=== PATIENT | male | born 1950 | race Caucasian/White ===

== ENCOUNTER → 2016-07-04 | Outpatient (CLI) | payer MEDICARE, BC ==
--- NOTE | 2016-07-04 15:50 | US ---
EXAMINATION TYPE: US kidneys/renal and bladder DATE OF EXAM: 07/04/2016 10:54 AM COMPARISON: NONE CLINICAL HISTORY: N28.89 DISORDERS OF KIDNEY AND URETER. Transplant candidate EXAM MEASUREMENTS:*patient was not told to prep for bladder* Right Kidney: 9.8 x 4.6 x 6.3 cm Left Kidney: 10.4 x 3.8 x 6.0 cm Right Kidney: cortical thinning Left Kidney: cortical thinning Bladder: not distended There is no evidence for hydronephrosis at this point in time. No nephrolithiasis is seen. No shanta s are identified. The urinary bladder is anechoic. Bilateral ureteral jets are seen. No suspicious renal masses are evident. IMPRESSION: Kidneys appear to have some chronic renal changes.
== END | disposition home or self-care (01) ==
LOC: RADUSWWP 10:38
PROVIDERS: ATTEND Family Medicine
DX: N28.89 Other specified disorders of kidney and ureter (principal)
CPT/HCPCS: 76770

== ENCOUNTER → 2016-10-25 | Outpatient (CLI) | payer MEDICARE, BC ==
--- NOTE | 2016-10-25 09:42 | US ---
EXAMINATION TYPE: US abdomen complete DATE OF EXAM: 10/25/2016 COMPARISON: Previous study dated 01/13/2016. CLINICAL HISTORY: K80.20 GALLSTONES, MASS. Kidney stones EXAM MEASUREMENTS: Liver Length: 17.6 cm Gallbladder Wall: 0.2 cm CBD: 0.4 cm Spleen: 14.4 cm Right Kidney: 11.2 x 5.5 x 4.1 cm Left Kidney: 10.6 x 5.7 x 5.0 cm Pancreas: obscured by overlying midline bowel gas Liver: measures in upper limits of normal at 17.6cm, somewhat heterogeneous echotexture Gallbladder: wnl Evidence for sonographic Martel's sign: no CBD: visualized portions wnl Spleen: enlarged at 14.4cm Right Kidney: cortical thinning, no hydro or masses seen at this time Left Kidney: cortical thinning, no hydro or masses seen at this time Upper IVC: wnl Abd Aorta: obscured by overlying midline bowel gas The pancreas is obscured. The liver is upper limits of normal in size with somewhat coarsened echotexture. The gallbladder is normal without evidence of cholelithiasis. The gallbladder wall measures 1.9 mm. T he distal common hepatic duct measures 4.1 mm. There is some cortical thinning involving both kidneys. Visualized portions of aorta and IVC are normal. IMPRESSION: BILATERAL RENAL CORTICAL THINNING.
== END | disposition home or self-care (01) ==
LOC: RADUSWWP 08:46
PROVIDERS: ATTEND Surgery
DX: N28.89 Other specified disorders of kidney and ureter (principal)
CPT/HCPCS: 76700

== ENCOUNTER 2016-10-30 19:07 | Emergency (ER) | payer MEDICARE, BC ==
[2016-10-30 19:12] VITALS: BP 142/65; PULSE 65; RESP 18; TEMP 97.2
[2016-10-30] MEDS ORDERED: GELATIN SPONGE,ABSORB (SMALL) 1 EACH SPONGE TOPICAL STA (19:29)
--- NOTE | 2016-10-30 19:41 | ED ---
General Adult HPI - General Chief complaint: Extremity Problem,Nontraumatic Stated complaint: Bleeding from dialysis Time Seen by Provider: 10/30/16 19:16 Source: patient, RN notes reviewed, old records reviewed Mode of arrival: wheelchair Limitations: no limitations - History of Present Illness Initial comments: Is the mail presented to the emergency departmentFrom hisDialysis fistula site Over his left upper arm. Patient reports that he and his were out to dinner after he received dialysis. They report that they noted thatHe soaked his shirt and bandages. They are concerned that it is still bleeding.He is on blood thinners.Patient denies any lightheadedness, Chest pain, shortness of breath, Nausea, vomiting.Patient reports that this is happened once before. - Related Data Home Medications Medication Instructions Recorded Confirmed Aspirin 81 mg PO DAILY 06/12/14 03/23/16 Etanercept [Enbrel] 50 mg SQ Q7DAYS 06/12/14 03/23/16 Furosemide [Lasix] 60 mg PO BID 06/12/14 03/23/16 Gemfibrozil [Lopid] 600 mg PO AC-BID 06/12/14 03/23/16 Insulin Glargine [Lantus] 60 unit SQ HS 06/12/14 03/23/16 Insulin Lispro [humaLOG] See Protocol SQ DAILY 06/12/14 03/23/16 Metoprolol Tartrate [Lopressor] 50 mg PO BID 06/12/14 03/23/16 Multivitamin [Men's Multi-Vitamin] 1 tab PO DAILY 06/12/14 03/23/16 NIFEdipine [NIFEdipine ER] 60 mg PO DAILY 06/12/14 03/23/16 Omeprazole [PriLOSEC] 20 mg PO AC-BID 06/12/14 03/23/16 Calcium Acetate [Phoslo] 2,001 mg PO TID-W/MEALS 10/05/15 03/23/16 Prorenal 1 tab PO DAILY 12/15/15 03/23/16 Sodium Bicarbonate 325 mg PO DAILY 12/15/15 03/23/16 Vit C/E/Zn/Coppr/Lutein/Zeaxan 1 cap PO DAILY 12/15/15 03/23/16 [Preservision Areds 2 Softgel] Clopidogrel [Plavix] 75 mg PO DAILY 03/23/16 03/23/16 Previous Rx's Medication Instructions Recorded Darbepoetin Dinh [Aranesp] 60 mcg SQ Q7D syringe 03/27/16 Levofloxacin [Levaquin] 500 mg PO Q48H #4 tab 03/27/16 Sevelamer [Renvela] 800 mg PO TID-W/MEALS #90 tab 03/27/16 Allergies Allergy/AdvReac Type Severity Reaction Status Date / Time sulfamethoxazole Allergy Unknown Unknown Verified 10/30/16 19:12 [From Bactrim] trimethoprim [From Bactrim] Allergy Unknown Unknown Verified 10/30/16 19:12 Review of Systems ROS Statement: Those systems with pertinent positive or pertinent negative responses have been documented in the HPI. ROS Other: All systems not noted in ROS Statement are negative. 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 History of Any Multi-Drug Resistant Organisms: None Reported Past Surgical History: Hernia Repair, Orthopedic Surgery Additional Past Surgical History / Comment(s): Bilateral cataract surgery, insertion dialysis catheter left arm, PICC line insertion/removed, bilateral inguinal hernina repairs, colonoscopy/polypectomy, R shoulder rotator cuff repair. Past Anesthesia/Blood Transfusion Reactions: No Reported Reaction Additional Past Anesthesia/Blood Transfusion Reaction / Comment(s): Pt received blood in past without reaction. Past Psychological History: Anxiety, Depression Smoking Status: Former smoker Past Alcohol Use History: None Reported Past Drug Use History: None Reported - Past Family History Father Family Medical History: Cancer General Exam - General Exam Comments Initial Comments: Pleasant 66 year old male, no distress. Limitations: no limitations General appearance: alert, in no apparent distress Head exam: Present: atraumatic, normocephalic, normal inspection Eye exam: Present: normal appearance, PERRL, EOMI. Absent: scleral icterus, conjunctival injection, periorbital swelling ENT exam: Present: normal exam, mucous membranes moist Neck exam: Present: normal inspection. Absent: tenderness, meningismus, lymphadenopathy Respiratory exam: Present: normal lung sounds bilaterally. Absent: respiratory distress, wheezes, rales, rhonchi, stridor Cardiovascular Exam: Present: regular rate, normal rhythm, normal heart sounds. Absent: systolic murmur, diastolic murmur, rubs, gallop, clicks GI/Abdominal exam: Present: soft, normal bowel sounds. Absent: distended, tenderness, guarding, rebound, rigid Extremities exam: Present: normal inspection, full ROM, normal capillary refill , other (Patient has AV fistula from left upper arm from dialysis. Mulitple soaked bandages were removed. Patient has no bleeding from the site at this time. ). Absent: tenderness, pedal edema, joint swelling, calf tenderness Back exam: Present: normal inspection Neurological exam: Present: alert, oriented X3, CN II-XII intact Psychiatric exam: Present: normal affect, normal mood Skin exam: Present: warm, dry, intact, normal color. Absent: rash Course Vital Signs 10/30/16 19:10 Temperature 97.2 F L Pulse Rate 65 Respiratory 18 Rate Blood Pressure 142/65 O2 Sat by Pulse 98 Oximetry Medical Decision Making - Medical Decision Making This is a 66 year old male with CC of bleeding from Fistula site of left upper arm after dialysis. He is on blood thinner. He soaked through is shirt, sweat shirt, and blanket. Patient bandages removed and the fistula site has stoppped bleeding. It was left uncovered for 30 minutes and no bleeding from the site noted. Patietn was cleaned up, and then gelfoam, and pressure dressing reapplied over the area. Discussed to return if the bleeding reoccurs. Patient agrees with treatment plan and will comply. Disposition Clinical Impression: Hemorrhage of arteriovenous fistula Disposition: HOME SELF-CARE Condition: Stable Instructions: Postoperative Bleeding (ED) Additional Instructions: Patient advised to keep the Lg wrap on the arm for the next 12-24 hours. Return to the emergency department if any further bleeding. Follow-up with your primary care physician.. Referrals: Nell Rosen MD [Primary Care Provider] - 1-2 days Time of Disposition: 19:38
== END 2016-10-30 20:00 | disposition home or self-care (01) ==
LOC: EC 19:07
DX: T82.838A Hemorrhage due to vascular prosthetic devices, implants and grafts, initial encounter (principal); I48.91 Unspecified atrial fibrillation; I50.9 Heart failure, unspecified; K21.9 Gastro-esophageal reflux disease without esophagitis; I13.0 Hypertensive heart and chronic kidney disease with heart failure and stage 1 through stage 4 chronic kidney disease, or unspecified chronic kidney disease; E11.22 Type 2 diabetes mellitus with diabetic chronic kidney disease; H54.8 Legal blindness, as defined in USA; M19.90 Unspecified osteoarthritis, unspecified site; M06.9 Rheumatoid arthritis, unspecified; Z99.2 Dependence on renal dialysis; Z88.1 Allergy status to other antibiotic agents; Z88.2 Allergy status to sulfonamides; Z79.02 Long term (current) use of antithrombotics/antiplatelets; Z79.4 Long term (current) use of insulin; Z79.82 Long term (current) use of aspirin; Z79.899 Other long term (current) drug therapy; Z87.891 Personal history of nicotine dependence
CPT/HCPCS: 99284

== ENCOUNTER 2016-11-29 18:32 | Emergency (ER) | payer MEDICARE, BC ==
[2016-11-29 18:47] VITALS: RESP 18
--- NOTE | 2016-11-29 19:20 | ED ---
General Adult HPI - General Chief complaint: Skin/Abscess/Foreign Body Stated complaint: bleeding after dialysis today Time Seen by Provider: 11/29/16 18:53 Source: patient, RN notes reviewed, old records reviewed Mode of arrival: wheelchair Limitations: no limitations - History of Present Illness Initial comments: This is a 58-year-old male here for evaluation of bleeding from left upper extremity AV fistula. Patient asked specifically if this was at home with bandage, patient did bleed through bandage, he has no lightheadedness dizziness or weakness. He does have history of this issue before. Currently not on blood thinners - Related Data Home Medications Medication Instructions Recorded Confirmed Aspirin 81 mg PO DAILY 06/12/14 03/23/16 Etanercept [Enbrel] 50 mg SQ Q7DAYS 06/12/14 03/23/16 Furosemide [Lasix] 60 mg PO BID 06/12/14 03/23/16 Gemfibrozil [Lopid] 600 mg PO AC-BID 06/12/14 03/23/16 Insulin Glargine [Lantus] 60 unit SQ HS 06/12/14 03/23/16 Insulin Lispro [humaLOG] See Protocol SQ DAILY 06/12/14 03/23/16 Metoprolol Tartrate [Lopressor] 50 mg PO BID 06/12/14 03/23/16 Multivitamin [Men's Multi-Vitamin] 1 tab PO DAILY 06/12/14 03/23/16 NIFEdipine [NIFEdipine ER] 60 mg PO DAILY 06/12/14 03/23/16 Omeprazole [PriLOSEC] 20 mg PO AC-BID 06/12/14 03/23/16 Calcium Acetate [Phoslo] 2,001 mg PO TID-W/MEALS 10/05/15 03/23/16 Prorenal 1 tab PO DAILY 12/15/15 03/23/16 Sodium Bicarbonate 325 mg PO DAILY 12/15/15 03/23/16 Vit C/E/Zn/Coppr/Lutein/Zeaxan 1 cap PO DAILY 12/15/15 03/23/16 [Preservision Areds 2 Softgel] Clopidogrel [Plavix] 75 mg PO DAILY 03/23/16 03/23/16 Previous Rx's Medication Instructions Recorded Darbepoetin Dinh [Aranesp] 60 mcg SQ Q7D syringe 03/27/16 Levofloxacin [Levaquin] 500 mg PO Q48H #4 tab 03/27/16 Sevelamer [Renvela] 800 mg PO TID-W/MEALS #90 tab 03/27/16 Allergies Allergy/AdvReac Type Severity Reaction Status Date / Time sulfamethoxazole Allergy Unknown Unknown Verified 11/29/16 18:46 [From Bactrim] trimethoprim [From Bactrim] Allergy Unknown Unknown Verified 11/29/16 18:46 Review of Systems ROS Statement: Those systems with pertinent positive or pertinent negative responses have been documented in the HPI. ROS Other: All systems not noted in ROS Statement are negative. 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 History of Any Multi-Drug Resistant Organisms: None Reported Past Surgical History: Hernia Repair, Orthopedic Surgery Additional Past Surgical History / Comment(s): Bilateral cataract surgery, insertion dialysis catheter left arm, PICC line insertion/removed, bilateral inguinal hernina repairs, colonoscopy/polypectomy, R shoulder rotator cuff repair. Past Anesthesia/Blood Transfusion Reactions: No Reported Reaction Additional Past Anesthesia/Blood Transfusion Reaction / Comment(s): Pt received blood in past without reaction. Past Psychological History: Anxiety, Depression Smoking Status: Former smoker Past Alcohol Use History: None Reported Past Drug Use History: None Reported - Past Family History Father Family Medical History: Cancer General Exam - General Exam Comments Initial Comments: Mild bleeding from AV access site Limitations: no limitations General appearance: alert, in no apparent distress Head exam: Present: atraumatic, normocephalic, normal inspection Eye exam: Present: normal appearance, PERRL, EOMI. Absent: scleral icterus, conjunctival injection, periorbital swelling ENT exam: Present: normal exam, mucous membranes moist Neck exam: Present: normal inspection. Absent: tenderness, meningismus, lymphadenopathy Respiratory exam: Present: normal lung sounds bilaterally. Absent: respiratory distress, wheezes, rales, rhonchi, stridor Cardiovascular Exam: Present: regular rate, normal rhythm, normal heart sounds. Absent: systolic murmur, diastolic murmur, rubs, gallop, clicks GI/Abdominal exam: Present: soft, normal bowel sounds. Absent: distended, tenderness, guarding, rebound, rigid Extremities exam: Present: normal inspection, full ROM, normal capillary refill. Absent: tenderness, pedal edema, joint swelling, calf tenderness Back exam: Present: normal inspection Neurological exam: Present: alert, oriented X3, CN II-XII intact Psychiatric exam: Present: normal affect, normal mood Skin exam: Present: warm, dry, intact, normal color. Absent: rash Course Vital Signs 11/29/16 11/29/16 18:43 19:10 Temperature 96.8 F L Pulse Rate 63 63 Respiratory 18 18 Rate Blood Pressure 147/65 124/59 O2 Sat by Pulse 98 97 Oximetry - Reevaluation(s) Reevaluation #1: 11/29/16 19:27 Bleeding remained stopped Medical Decision Making - Medical Decision Making 6 emailed ER for evaluation of bleeding bleeding from AV fistula, bleeding has stopped upon treatment here in the emergency room, patient will be discharged home Disposition Clinical Impression: Hemorrhage of arteriovenous fistula Disposition: HOME SELF-CARE Condition: Good Instructions: Postoperative Bleeding (ED) Referrals: Nell Rosen MD [Primary Care Provider] - 1-2 days
[2016-11-29 19:57] VITALS: BP 141/64; PULSE 61; TEMP 97.7
== END 2016-11-29 19:56 | disposition home or self-care (01) ==
LOC: EC 18:32
DX: T82.838A Hemorrhage due to vascular prosthetic devices, implants and grafts, initial encounter (principal); I48.91 Unspecified atrial fibrillation; K21.9 Gastro-esophageal reflux disease without esophagitis; F41.9 Anxiety disorder, unspecified; F32.9 Major depressive disorder, single episode, unspecified; I13.0 Hypertensive heart and chronic kidney disease with heart failure and stage 1 through stage 4 chronic kidney disease, or unspecified chronic kidney disease; I50.9 Heart failure, unspecified; N18.6 End stage renal disease; E11.22 Type 2 diabetes mellitus with diabetic chronic kidney disease; E11.319 Type 2 diabetes mellitus with unspecified diabetic retinopathy without macular edema; M06.9 Rheumatoid arthritis, unspecified; M19.90 Unspecified osteoarthritis, unspecified site; D64.9 Anemia, unspecified; E11.40 Type 2 diabetes mellitus with diabetic neuropathy, unspecified; E11.621 Type 2 diabetes mellitus with foot ulcer; L97.529 Non-pressure chronic ulcer of other part of left foot with unspecified severity; Z99.2 Dependence on renal dialysis; Z88.1 Allergy status to other antibiotic agents; Z79.02 Long term (current) use of antithrombotics/antiplatelets; Z79.4 Long term (current) use of insulin; Z79.82 Long term (current) use of aspirin; Z79.899 Other long term (current) drug therapy; Z87.891 Personal history of nicotine dependence
CPT/HCPCS: 99284

== ENCOUNTER 2016-12-18 20:09 | Emergency (ER) | payer MEDICARE, BC ==
[2016-12-18 20:13] VITALS: RESP 20; TEMP 98.2
--- NOTE | 2016-12-18 21:02 | ED ---
Skin/Abscess/FB HPI - General Chief complaint: Skin/Abscess/Foreign Body Stated complaint: L arm bleed Time Seen by Provider: 12/18/16 20:47 Source: patient, RN notes reviewed Mode of arrival: ambulatory Limitations: no limitations - History of Present Illness Initial comments: 66-year-old male presents emergency Department chief complaint of bleeding from his fistula. Patient states he had dialysis this afternoon states that he's had some leaking from it. Patient states he takes Plavix and he said problems with leaking in the past. Patient states that he preferred dressing on it a few times with pressure and the bleeding has slowed down but just wanted to make sure that everything was okay. Patient denies any fevers or chills. Denies any headache, dizziness, chest pain or shortness breath. - Related Data Home Medications Medication Instructions Recorded Confirmed Etanercept [Enbrel] 50 mg SQ LUU 06/12/14 12/18/16 Furosemide [Lasix] 60 mg PO BID 06/12/14 12/18/16 Gemfibrozil [Lopid] 600 mg PO AC-BID 06/12/14 12/18/16 Insulin Glargine [Lantus] 70 unit SQ HS 06/12/14 12/18/16 Insulin Lispro [humaLOG] See Protocol SQ AC-TID 06/12/14 12/18/16 Metoprolol Tartrate [Lopressor] 50 mg PO BID 06/12/14 12/18/16 NIFEdipine [NIFEdipine ER] 60 mg PO DAILY 06/12/14 12/18/16 Calcium Acetate [Phoslo] 2,001 mg PO BID-W/MEALS 10/05/15 12/18/16 Prorenal 1 tab PO DAILY 12/15/15 12/18/16 Clopidogrel [Plavix] 75 mg PO DAILY 03/23/16 12/18/16 Aspirin EC [Ecotrin Low Dose] 81 mg PO DAILY 11/29/16 12/18/16 Omeprazole 40 mg PO DAILY 11/29/16 12/18/16 Calcium Carb-Mag Carb-Folic 1 tab PO AC-BID 12/18/16 12/18/16 [Magnebind 400 Rx] Sodium Bicarbonate Tab 650 mg PO DAILY 12/18/16 12/18/16 Vit C/E/Zn/Coppr/Lutein/Zeaxan 1 cap PO DAILY 12/18/16 12/18/16 [Preservision Areds 2 Softgel] Allergies Allergy/AdvReac Type Severity Reaction Status Date / Time sulfamethoxazole AdvReac Unknown Nausea & Verified 12/18/16 20:13 [From Bactrim] Vomiting trimethoprim [From Bactrim] AdvReac Unknown Nausea & Verified 12/18/16 20:13 Vomiting Review of Systems ROS Statement: Those systems with pertinent positive or pertinent negative responses have been documented in the HPI. ROS Other: All systems not noted in ROS Statement are negative. 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 History of Any Multi-Drug Resistant Organisms: None Reported Past Surgical History: Hernia Repair, Orthopedic Surgery Additional Past Surgical History / Comment(s): Bilateral cataract surgery, insertion dialysis catheter left arm, PICC line insertion/removed, bilateral inguinal hernina repairs, colonoscopy/polypectomy, R shoulder rotator cuff repair. Past Anesthesia/Blood Transfusion Reactions: No Reported Reaction Additional Past Anesthesia/Blood Transfusion Reaction / Comment(s): Pt received blood in past without reaction. Past Psychological History: Anxiety, Depression Smoking Status: Former smoker Past Alcohol Use History: None Reported Past Drug Use History: None Reported - Past Family History Father Family Medical History: Cancer General Exam Limitations: no limitations General appearance: alert, in no apparent distress Respiratory exam: Present: normal lung sounds bilaterally. Absent: respiratory distress, wheezes, rales, rhonchi, stridor Cardiovascular Exam: Present: regular rate, normal rhythm, normal heart sounds. Absent: systolic murmur, diastolic murmur, rubs, gallop, clicks Extremities exam: Present: other (Left bicep region there is an AV fistula noted with thrill there is no active bleeding patient has full range of motion of left upper extremity neurovascular intact) Course Vital Signs 12/18/16 20:11 Temperature 98.2 F Pulse Rate 76 Respiratory 20 Rate Blood Pressure 165/70 O2 Sat by Pulse 98 Oximetry - Reevaluation(s) Reevaluation #1: 12/18/16 21:25 Patient was reevaluated at this time there is no active bleeding. Patient's arm will be redressed and patient will be discharged. Medical Decision Making - Medical Decision Making 66-year-old male present emergency department for bleeding from his AV fistula. Patient bleeding has subsided. Patient is scheduled follow-up with vascular surgeon has she's had issues with this in the past. Return parameters were discussed. Disposition Clinical Impression: Hemorrhage of arteriovenous fistula Disposition: HOME SELF-CARE Condition: Stable Instructions: Acute Wound Care (ED) Additional Instructions: Please return to the Emergency Department if symptoms worsen or any other concerns. Referrals: Nell Rosen MD [Primary Care Provider] - 1-2 days Time of Disposition: 21:27
[2016-12-18 22:06] VITALS: BP 159/81; PULSE 87
== END 2016-12-18 22:06 | disposition home or self-care (01) ==
LOC: EC 20:09
DX: T82.838A Hemorrhage due to vascular prosthetic devices, implants and grafts, initial encounter (principal); Y83.8 Other surgical procedures as the cause of abnormal reaction of the patient, or of later complication, without mention of misadventure at the time of the procedure; I48.91 Unspecified atrial fibrillation; I11.0 Hypertensive heart disease with heart failure; I50.9 Heart failure, unspecified; E11.9 Type 2 diabetes mellitus without complications; K21.9 Gastro-esophageal reflux disease without esophagitis; M19.90 Unspecified osteoarthritis, unspecified site; M06.9 Rheumatoid arthritis, unspecified; F32.9 Major depressive disorder, single episode, unspecified; F41.9 Anxiety disorder, unspecified; Z87.891 Personal history of nicotine dependence; Z79.4 Long term (current) use of insulin; Z79.82 Long term (current) use of aspirin; Z79.01 Long term (current) use of anticoagulants; Z79.899 Other long term (current) drug therapy; Z88.2 Allergy status to sulfonamides; Z99.2 Dependence on renal dialysis
CPT/HCPCS: 99283

== ENCOUNTER 2017-02-26 20:31 | Emergency (ER) | payer MEDICARE, BC ==
[2017-02-26] MEDS ORDERED: GELATIN SPONGE,ABSORB (SMALL) 1 EACH SPONGE TOPICAL STA (21:53)
[2017-02-26 22:17] VITALS: RESP 18
--- NOTE | 2017-02-26 22:22 | ED ---
General Adult HPI - General Chief complaint: Recheck/Abnormal Lab/Rx Stated complaint: arm bleeding/post dialysis Time Seen by Provider: 02/26/17 21:49 Source: patient, family, RN notes reviewed Mode of arrival: ambulatory Limitations: no limitations - History of Present Illness Initial comments: This is a 66-year-old male with history of multiple medical problems including renal failure with dialysis who just his dialysis this evening when he got home he started developing bleeding from the fistula site. They were unable to control her pressure they came here for evaluation he denies any other symptoms such as lightheadedness dizziness or other complaints. He has had this happen in the past he is on a Plavix-like medication no other blood thinners. - Related Data Home Medications Medication Instructions Recorded Confirmed Etanercept [Enbrel] 50 mg SQ LUU 06/12/14 02/26/17 Furosemide [Lasix] 60 mg PO BID 06/12/14 02/26/17 Gemfibrozil [Lopid] 600 mg PO AC-BID 06/12/14 02/26/17 Insulin Glargine [Lantus] 70 unit SQ HS 06/12/14 02/26/17 Insulin Lispro [humaLOG] See Protocol SQ AC-TID 06/12/14 02/26/17 Metoprolol Tartrate [Lopressor] 50 mg PO BID 06/12/14 02/26/17 NIFEdipine [NIFEdipine ER] 60 mg PO DAILY 06/12/14 02/26/17 Calcium Acetate [Phoslo] 2,001 mg PO BID-W/MEALS 10/05/15 02/26/17 Prorenal 1 tab PO DAILY 12/15/15 02/26/17 Clopidogrel [Plavix] 75 mg PO DAILY 03/23/16 02/26/17 Aspirin EC [Ecotrin Low Dose] 81 mg PO DAILY 11/29/16 02/26/17 Omeprazole 40 mg PO DAILY 11/29/16 02/26/17 Calcium Carb-Mag Carb-Folic 1 tab PO AC-BID 12/18/16 02/26/17 [Magnebind 400 Rx] Sodium Bicarbonate Tab 650 mg PO DAILY 12/18/16 02/26/17 Vit C/E/Zn/Coppr/Lutein/Zeaxan 1 cap PO DAILY 12/18/16 02/26/17 [Preservision Areds 2 Softgel] Allergies Allergy/AdvReac Type Severity Reaction Status Date / Time sulfamethoxazole AdvReac Unknown Nausea & Verified 02/26/17 22:15 [From Bactrim] Vomiting trimethoprim [From Bactrim] AdvReac Unknown Nausea & Verified 02/26/17 22:15 Vomiting Review of Systems ROS Statement: Those systems with pertinent positive or pertinent negative responses have been documented in the HPI. ROS Other: All systems not noted in ROS Statement are negative. 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 History of Any Multi-Drug Resistant Organisms: None Reported Past Surgical History: Hernia Repair, Orthopedic Surgery Additional Past Surgical History / Comment(s): Bilateral cataract surgery, insertion dialysis catheter left arm, PICC line insertion/removed, bilateral inguinal hernina repairs, colonoscopy/polypectomy, R shoulder rotator cuff repair. Past Anesthesia/Blood Transfusion Reactions: No Reported Reaction Additional Past Anesthesia/Blood Transfusion Reaction / Comment(s): Pt received blood in past without reaction. Past Psychological History: Anxiety, Depression Smoking Status: Former smoker Past Alcohol Use History: None Reported Past Drug Use History: None Reported - Past Family History Father Family Medical History: Cancer General Exam - General Exam Comments Initial Comments: This is a well-developed well-nourished awake alert oriented 3 male Limitations: no limitations General appearance: alert, in no apparent distress Head exam: Present: atraumatic, normocephalic, normal inspection Eye exam: Present: normal appearance, PERRL, EOMI. Absent: scleral icterus, conjunctival injection, periorbital swelling ENT exam: Present: normal exam, mucous membranes moist Neck exam: Present: normal inspection Cardiovascular Exam: Present: irregular rhythm Extremities exam: Present: full ROM, normal capillary refill, other ( Examination left upper extremity demonstrates a functional fistula with a palpable thrill through his bleeding oozing from the proximal aspect of the fistula. It is easily controlled with pressure.) Back exam: Present: normal inspection. Absent: tenderness Neurological exam: Present: alert, oriented X3, CN II-XII intact Psychiatric exam: Present: normal affect, normal mood Skin exam: Present: warm, dry, normal color Course Vital Signs 02/26/17 02/26/17 20:44 22:09 Temperature 98.3 F Pulse Rate 73 69 Respiratory 20 18 Rate Blood Pressure 123/58 134/56 O2 Sat by Pulse 98 96 Oximetry Procedures - Procedures Initial comment: The patient's left arm was cleansed with saline and Gelfoam was applied with pressure and later was wrapped with an Lg wrap. This did seem to control the bleeding. Medical Decision Making - Medical Decision Making The patient was evaluated on several occasions by me he had no further bleeding after the initial wrap was placed. The patient be discharged with follow-up with his doctor. Dressing will be continued tonight. Disposition Clinical Impression: Surgical arteriovenous fistula hemorrhage Disposition: HOME SELF-CARE Condition: Good Additional Instructions: Continue with the dressing tonight as discussed. Follow-up with her doctor return when necessary Referrals: Nell Rosen MD [Primary Care Provider] - 1-2 days
[2017-02-26 23:11] VITALS: BP 168/74; PULSE 72; TEMP 97.2
== END 2017-02-26 23:10 | disposition home or self-care (01) ==
LOC: EC 20:31
DX: T82.838A Hemorrhage due to vascular prosthetic devices, implants and grafts, initial encounter (principal); I13.0 Hypertensive heart and chronic kidney disease with heart failure and stage 1 through stage 4 chronic kidney disease, or unspecified chronic kidney disease; N18.2 Chronic kidney disease, stage 2 (mild); I50.9 Heart failure, unspecified; E11.22 Type 2 diabetes mellitus with diabetic chronic kidney disease; E11.319 Type 2 diabetes mellitus with unspecified diabetic retinopathy without macular edema; E11.40 Type 2 diabetes mellitus with diabetic neuropathy, unspecified; K21.9 Gastro-esophageal reflux disease without esophagitis; M06.9 Rheumatoid arthritis, unspecified; M19.90 Unspecified osteoarthritis, unspecified site; Z87.891 Personal history of nicotine dependence; Z79.02 Long term (current) use of antithrombotics/antiplatelets; Z79.4 Long term (current) use of insulin; Z79.82 Long term (current) use of aspirin; Z79.899 Other long term (current) drug therapy; Z88.1 Allergy status to other antibiotic agents; Y84.1 Kidney dialysis as the cause of abnormal reaction of the patient, or of later complication, without mention of misadventure at the time of the procedure
CPT/HCPCS: 99283

== ENCOUNTER 2017-12-03 17:12 | Emergency (ER) | payer MEDICARE, BC ==
--- NOTE | 2017-12-03 18:58 | ED ---
Fever HPI - General Chief Complaint: Fever Stated Complaint: Foot infection Time Seen by Provider: 12/03/17 18:43 Source: patient, RN notes reviewed Mode of arrival: ambulatory Limitations: no limitations - History of Present Illness Initial Comments: 67-year-old male presents emergency Department chief complaint of fever, not feeling well. Patient states that he started shaking, coughing and had episodes of emesis last night. He states he has no abdominal pain denies any current nausea or vomiting. Patient states that he just generalized feels ill. He does complain that he has diabetic foot wound on his left foot, multiple wounds to his lower extremities which have been ongoing. The do state that his left leg is hot, there is drainage from his foot. Patient denies any current chest pain, shortness breath. He does admit to a cough. Denies sore throat, headache, neck pain or neck stiffness. Patient has a known diabetic, on dialysis. - Related Data Home Medications Medication Instructions Recorded Confirmed Etanercept [Enbrel] 50 mg SQ LUU 06/12/14 02/26/17 Furosemide [Lasix] 60 mg PO BID 06/12/14 02/26/17 Gemfibrozil [Lopid] 600 mg PO AC-BID 06/12/14 02/26/17 Insulin Glargine [Lantus] 70 unit SQ HS 06/12/14 02/26/17 Insulin Lispro [humaLOG] See Protocol SQ AC-TID 06/12/14 02/26/17 Metoprolol Tartrate [Lopressor] 50 mg PO BID 06/12/14 02/26/17 NIFEdipine [NIFEdipine ER] 60 mg PO DAILY 06/12/14 02/26/17 Calcium Acetate [Phoslo] 2,001 mg PO BID-W/MEALS 10/05/15 02/26/17 Prorenal 1 tab PO DAILY 12/15/15 02/26/17 Clopidogrel [Plavix] 75 mg PO DAILY 03/23/16 02/26/17 Aspirin EC [Ecotrin Low Dose] 81 mg PO DAILY 11/29/16 02/26/17 Omeprazole 40 mg PO DAILY 11/29/16 02/26/17 Calcium Carb-Mag Carb-Folic 1 tab PO AC-BID 12/18/16 02/26/17 [Magnebind 400 Rx] Sodium Bicarbonate Tab 650 mg PO DAILY 12/18/16 02/26/17 Vit C/E/Zn/Coppr/Lutein/Zeaxan 1 cap PO DAILY 12/18/16 02/26/17 [Preservision Areds 2 Softgel] Previous Rx's Medication Instructions Recorded Clindamycin HCl 300 mg PO Q6HR #40 cap 12/03/17 Allergies Allergy/AdvReac Type Severity Reaction Status Date / Time sulfamethoxazole AdvReac Unknown Nausea & Verified 12/03/17 17:27 [From Bactrim] Vomiting trimethoprim [From Bactrim] AdvReac Unknown Nausea & Verified 12/03/17 17:27 Vomiting Review of Systems ROS Statement: Those systems with pertinent positive or pertinent negative responses have been documented in the HPI. ROS Other: All systems not noted in ROS Statement are negative. 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 History of Any Multi-Drug Resistant Organisms: None Reported Past Surgical History: Hernia Repair, Orthopedic Surgery Additional Past Surgical History / Comment(s): Bilateral cataract surgery, insertion dialysis catheter left arm, PICC line insertion/removed, bilateral inguinal hernina repairs, colonoscopy/polypectomy, R shoulder rotator cuff repair. Past Anesthesia/Blood Transfusion Reactions: No Reported Reaction Additional Past Anesthesia/Blood Transfusion Reaction / Comment(s): Pt received blood in past without reaction. Past Psychological History: Anxiety, Depression Smoking Status: Former smoker Past Alcohol Use History: None Reported Past Drug Use History: None Reported - Past Family History Father Family Medical History: Cancer General Exam Limitations: no limitations General appearance: alert, in no apparent distress Head exam: Present: atraumatic, normocephalic, normal inspection ENT exam: Present: normal exam, normal oropharynx, mucous membranes moist, TM's normal bilaterally Neck exam: Present: normal inspection, full ROM. Absent: tenderness, meningismus, lymphadenopathy Respiratory exam: Present: normal lung sounds bilaterally. Absent: respiratory distress, wheezes, rales, rhonchi, stridor Cardiovascular Exam: Present: regular rate, normal rhythm, normal heart sounds. Absent: systolic murmur, diastolic murmur, rubs, gallop, clicks GI/Abdominal exam: Present: soft, normal bowel sounds. Absent: distended, tenderness, guarding, rebound, rigid Extremities exam: Present: other (Bilateral lower extremity wounds noted, mild erythema, left foot to correct diabetic foot ulcers noted there is drainage from the lateral aspect, the foot is erythematous, increased warmth pulses are equal bilaterally) Skin exam: Present: warm, dry, intact, normal color. Absent: rash Course Vital Signs 12/03/17 12/03/17 17:24 20:51 Temperature 99.4 F 98.5 F Pulse Rate 72 Pulse Rate [ 91 Pulse Oximetery ] Respiratory 18 20 Rate Blood Pressure 183/74 Blood Pressure 189/81 [Supine] O2 Sat by Pulse 93 L Oximetry Medical Decision Making - Medical Decision Making 67-year-old male presents emergency department for concerns of possible fever. Patient has had no recorded fever emergency department. Patient does have diabetic foot ulcer with no obvious evidence of osteomyelitis. Patient's labwork was reviewed patient does have chronic renal failure on hemodialysis at this time. Patient has no current leukocytosis, chest x-ray shows clearing of prior pneumonia. Urinalysis does not show any evidence of urinary tract infection patient's abdomen is soft nontender any did have some vomiting yesterday which has resolved. Patient will be treated with clindamycin at this time he'll follow-up outpatient with Dr. Mcfadden who he has seen in the past. - Lab Data Result diagrams: 12/03/17 19:18 12/03/17 19:18 Lab Results 12/03/17 12/03/17 12/03/17 Range/Units 19:18 19:18 19:18 WBC 10.0 (3.8-10.6) k/uL RBC 3.03 L (4.30-5.90) m/uL Hgb 10.5 L (13.0-17.5) gm/dL Hct 31.4 L (39.0-53.0) % MCV 103.6 H (80.0-100.0) fL MCH 34.6 (25.0-35.0) pg MCHC 33.4 (31.0-37.0) g/dL RDW 13.9 (11.5-15.5) % Plt Count 153 (150-450) k/uL Neutrophils % 83 % Lymphocytes % 9 % Monocytes % 4 % Eosinophils % 2 % Basophils % 0 % Neutrophils # 8.3 H (1.3-7.7) k/uL Lymphocytes # 0.9 L (1.0-4.8) k/uL Monocytes # 0.4 (0-1.0) k/uL Eosinophils # 0.2 (0-0.7) k/uL Basophils # 0.0 (0-0.2) k/uL Macrocytosis Slight PT (9.0-12.0) sec INR (<1.2) APTT (22.0-30.0) sec Sodium 139 (137-145) mmol/L Potassium 4.4 (3.5-5.1) mmol/L Chloride 101 (98-107) mmol/L Carbon Dioxide 24 (22-30) mmol/L Anion Gap 14 mmol/L BUN 65 H (9-20) mg/dL Creatinine 8.50 H* (0.66-1.25) mg/dL Est GFR (CKD-EPI)AfAm 7 (>60 ml/min/1.73 sqM) Est GFR (CKD-EPI)NonAf 6 (>60 ml/min/1.73 sqM) Glucose 213 H (74-99) mg/dL Plasma Lactic Acid John 1.5 (0.7-2.0) mmol/L Calcium 8.8 (8.4-10.2) mg/dL Total Bilirubin 0.4 (0.2-1.3) mg/dL AST 21 (17-59) U/L ALT 22 (21-72) U/L Alkaline Phosphatase 89 (38-126) U/L C-Reactive Protein 67.7 H (<10.0) mg/L Total Protein 6.6 (6.3-8.2) g/dL Albumin 3.4 L (3.5-5.0) g/dL Urine Color Urine Appearance (Clear) Urine pH (5.0-8.0) Ur Specific Gays (1.001-1.035) Urine Protein (Negative) Urine Glucose (UA) (Negative) Urine Ketones (Negative) Urine Blood (Negative) Urine Nitrite (Negative) Urine Bilirubin (Negative) Urine Urobilinogen (<2.0) mg/dL Ur Leukocyte Esterase (Negative) Urine RBC (0-5) /hpf Urine WBC (0-5) /hpf Urine Mucus (None) /hpf 12/03/17 12/03/17 Range/Units 19:18 20:46 WBC (3.8-10.6) k/uL RBC (4.30-5.90) m/uL Hgb (13.0-17.5) gm/dL Hct (39.0-53.0) % MCV (80.0-100.0) fL MCH (25.0-35.0) pg MCHC (31.0-37.0) g/dL RDW (11.5-15.5) % Plt Count (150-450) k/uL Neutrophils % % Lymphocytes % % Monocytes % % Eosinophils % % Basophils % % Neutrophils # (1.3-7.7) k/uL Lymphocytes # (1.0-4.8) k/uL Monocytes # (0-1.0) k/uL Eosinophils # (0-0.7) k/uL Basophils # (0-0.2) k/uL Macrocytosis PT 9.8 (9.0-12.0) sec INR 1.0 (<1.2) APTT 17.7 L (22.0-30.0) sec Sodium (137-145) mmol/L Potassium (3.5-5.1) mmol/L Chloride (98-107) mmol/L Carbon Dioxide (22-30) mmol/L Anion Gap mmol/L BUN (9-20) mg/dL Creatinine (0.66-1.25) mg/dL Est GFR (CKD-EPI)AfAm (>60 ml/min/1.73 sqM) Est GFR (CKD-EPI)NonAf (>60 ml/min/1.73 sqM) Glucose (74-99) mg/dL Plasma Lactic Acid John (0.7-2.0) mmol/L Calcium (8.4-10.2) mg/dL Total Bilirubin (0.2-1.3) mg/dL AST (17-59) U/L ALT (21-72) U/L Alkaline Phosphatase (38-126) U/L C-Reactive Protein (<10.0) mg/L Total Protein (6.3-8.2) g/dL Albumin (3.5-5.0) g/dL Urine Color Light Yellow Urine Appearance Clear (Clear) Urine pH 8.0 (5.0-8.0) Ur Specific Gays 1.009 (1.001-1.035) Urine Protein 3+ H (Negative) Urine Glucose (UA) 3+ H (Negative) Urine Ketones Negative (Negative) Urine Blood Small H (Negative) Urine Nitrite Negative (Negative) Urine Bilirubin Negative (Negative) Urine Urobilinogen <2.0 (<2.0) mg/dL Ur Leukocyte Esterase Negative (Negative) Urine RBC 4 (0-5) /hpf Urine WBC <1 (0-5) /hpf Urine Mucus Rare H (None) /hpf Disposition Clinical Impression: Diabetic foot ulcer, End stage renal disease on dialysis due to type 2 diabetes mellitus Disposition: HOME SELF-CARE Condition: Stable Instructions: Diabetic Foot Ulcers (ED) Additional Instructions: Please return to the Emergency Department if symptoms worsen or any other concerns. Prescriptions: Clindamycin HCl 300 mg PO Q6HR #40 cap Is patient prescribed a controlled substance at d/c from ED?: No Referrals: Nell Rosen MD [Primary Care Provider] - 1-2 days Time of Disposition: 21:36
[2017-12-03 19:42] LABS: Basophils % (A) 0 %; Eosinophils # (A) 0.2 k/uL (0-0.7); Eosinophils % (A) 2 %; HCT 31.4 % (39.0-53.0); HGB 10.5 gm/dL (13.0-17.5); Lymphocytes # (A) 0.9 k/uL (1.0-4.8); Lymphocytes % (A) 9 %; MCH 34.6 pg (25.0-35.0); MCHC 33.4 g/dL (31.0-37.0); MCV 103.6 fL (80.0-100.0); Macrocytosis Slight; Mean Platelet Volume 8.5; Monocytes # (A) 0.4 k/uL (0-1.0); Monocytes % (A) 4 %; Neutrophils # (A) 8.3 k/uL (1.3-7.7); Neutrophils % (A) 83 %; Platelet Count 153 k/uL (150-450); RBC 3.03 m/uL (4.30-5.90); RDW 13.9 % (11.5-15.5)
--- NOTE | 2017-12-03 19:48 | XR ---
EXAMINATION TYPE: XR chest 2V DATE OF EXAM: 12/03/2017 COMPARISON: 03/26/2016 HISTORY: Cough and fever TECHNIQUE: Frontal and lateral views of the chest are obtained. FINDINGS: There is no heart failure nor confluent pneumonic infiltrate. Costophrenic angles are louie r. Heart size is normal. Bony thorax is intact. IMPRESSION: No active cardiopulmonary disease. There is clearing of left upper lobe pneumonia compar ed to old exam.
--- NOTE | 2017-12-03 19:49 | XR ---
EXAMINATION TYPE: XR foot complete LT DATE OF EXAM: 12/03/2017 COMPARISON: NONE HISTORY: Foot pain TECHNIQUE: 3 views FINDINGS: There is a moderate plantar calcaneal spur. There is vascular calcifications. Metatarsals a re intact. I see no fracture nor dislocation. There are no erosions. IMPRESSION: Calcaneal spurring. No fracture. No sign of osteomyelitis.
[2017-12-03 20:04] LABS: Prothrombin Time 9.8 sec (9.0-12.0)
[2017-12-03 20:06] LABS: Albumin 3.4 g/dL (3.5-5.0); C Reactive Protein 67.7 mg/L (<10.0); Calcium 8.8 mg/dL (8.4-10.2); Potassium 4.4 mmol/L (3.5-5.1); Total Bilirubin 0.4 mg/dL (0.2-1.3); Total Protein 6.6 g/dL (6.3-8.2)
[2017-12-03] MEDS ORDERED: ACETAMINOPHEN TAB 500 MG TAB PO STA (20:06)
[2017-12-03 20:23] LABS: Partial Thromboplastin Time 17.7 sec (22.0-30.0)
[2017-12-03 20:52] VITALS: RESP 20
[2017-12-03 20:59] LABS: Appearance,Urine Clear (Clear); Bilirubin,Urine Negative (Negative); Blood,Urine Small (Negative); Color,Urine Light Yellow; Glucose,Urine (UA) 3+ (Negative); Ketones,Urine Negative (Negative); Leukocyte Esterase,Urine Negative (Negative); Mucus,Urine Rare /hpf; Nitrite,Urine Negative (Negative); Protein,Urine 3+ (Negative); RBC,Urine 4 /hpf (0-5); Specific Gravity,Urine 1.009 (1.001-1.035); Urobilinogen,Urine <2.0 mg/dL (<2.0); WBC,Urine <1 /hpf (0-5)
[2017-12-03] MEDS ORDERED: cefTRIAXone IN SWFI 2,000 MG/20 ML SYRINGE IVP STA (21:40)
[2017-12-03 22:30] VITALS: BP 198/81; PULSE 82; TEMP 98.7
== END 2017-12-03 22:30 | disposition home or self-care (01) ==
LOC: EC 17:12
DX: E11.621 Type 2 diabetes mellitus with foot ulcer (principal); L97.529 Non-pressure chronic ulcer of other part of left foot with unspecified severity; E11.22 Type 2 diabetes mellitus with diabetic chronic kidney disease; I13.2 Hypertensive heart and chronic kidney disease with heart failure and with stage 5 chronic kidney disease, or end stage renal disease; I50.9 Heart failure, unspecified; N18.6 End stage renal disease; I48.91 Unspecified atrial fibrillation; K21.9 Gastro-esophageal reflux disease without esophagitis; M06.9 Rheumatoid arthritis, unspecified; E11.319 Type 2 diabetes mellitus with unspecified diabetic retinopathy without macular edema; H54.8 Legal blindness, as defined in USA; F41.9 Anxiety disorder, unspecified; F32.9 Major depressive disorder, single episode, unspecified; Z99.2 Dependence on renal dialysis; Z87.891 Personal history of nicotine dependence; Z98.890 Other specified postprocedural states; Z79.02 Long term (current) use of antithrombotics/antiplatelets; Z79.4 Long term (current) use of insulin; Z79.82 Long term (current) use of aspirin; Z79.899 Other long term (current) drug therapy; Z88.1 Allergy status to other antibiotic agents; Z88.2 Allergy status to sulfonamides
CPT/HCPCS: 36415; 80053; 83605; 85025; 85610; 85730; 86140; 81001; 87040; 87086; 73630; 71046; 99283; 96374; J0696

== ENCOUNTER → 2017-12-20 | Outpatient (CLI) | payer MEDICARE ==
[2017-12-20 15:37] LABS: Anisocytosis Slight; HGB 10.8 gm/dL (13.0-17.5); Hypochromasia Slight; MCH 34.8 pg (25.0-35.0); MCHC 32.9 g/dL (31.0-37.0); Macrocytosis Moderate; Mean Platelet Volume 8.4; Platelet Count 200 k/uL (150-450); RBC 3.11 m/uL (4.30-5.90); RDW 16.2 % (11.5-15.5); WBC 6.8 k/uL (3.8-10.6)
[2017-12-20 15:53] LABS: Albumin 3.8 g/dL (3.5-5.0); Calcium 9.2 mg/dL (8.4-10.2); Potassium 4.6 mmol/L (3.5-5.1); Total Bilirubin 0.3 mg/dL (0.2-1.3); Total Protein 7.6 g/dL (6.3-8.2)
[2017-12-20 23:21] LABS: Hemoglobin A1C 7.8 % (4.0-6.0)
--- NOTE | 2017-12-24 16:31 | AS ---
DATE OF SERVICE: 12/24/2017 ARTERIAL STUDY This gentleman has a pulse volume recording of both lower extremities. The right leg has a triphasic signal with no pressure gradient noted between the iliac and femoral and popliteal artery. There is ankle-brachial index on the right side is 0.96 and the left side. 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 If the patient is symptomatic, recommend vascular consultation. MMODL / IJN: [id number] / MTDJay Jay
== END | disposition home or self-care (01) ==
LOC: RADUSWWP 13:45
PROVIDERS: ATTEND Thoracic Surgery (Cardiothoracic Vascular Surgery)
DX: M79.604 Pain in right leg (principal); M79.605 Pain in left leg; E63.8 Other specified nutritional deficiencies; E13.622 Other specified diabetes mellitus with other skin ulcer; E13.621 Other specified diabetes mellitus with foot ulcer
CPT/HCPCS: 36415; 80053; 83036; 84134; 85027; 93922

== ENCOUNTER 2018-05-04 09:57 | Inpatient (IN) | payer MEDICARE ==
--- NOTE | 2018-05-04 10:25 | ED ---
General Adult HPI - General Source: patient, RN notes reviewed Mode of arrival: ambulatory Limitations: no limitations <Ming Gonsales - Last Filed: 05/04/18 11:27> <Nestor Hastings - Last Filed: 05/04/18 12:04> - General Chief complaint: Wound/Laceration Stated complaint: left foot, diabetic problem Time Seen by Provider: 05/04/18 10:08 - History of Present Illness Initial comments: 67-year-old male presents emergency Department with chief complaint of wound to his left foot. Patient states he's had several wounds to his foot which have been debrided recently by wound center. Patient also sees paper sealer. Patient states that he had a new wound she'll today and he was concerned. Patient states that he noticed a black wound just proximal to his left first digit. Patient denies any increase in pain is time. He is a known diabetic on dialysis. He did admit that he missed dialysis yesterday because he told was still feels that his foot. Patient currently started antibiotics couple days ago. Patient reports no fever or chills. Denies any pain in his calf or increased swelling of his leg. (Ming Gonsales) - Related Data Home Medications Medication Instructions Recorded Confirmed Etanercept [Enbrel] 50 mg SQ LUU 06/12/14 04/23/18 Furosemide [Lasix] 60 mg PO BID 06/12/14 04/23/18 Gemfibrozil [Lopid] 600 mg PO AC-BID 06/12/14 04/23/18 Insulin Glargine [Lantus] 70 unit SQ HS 06/12/14 04/23/18 Insulin Lispro [humaLOG] See Protocol SQ AC-TID 06/12/14 04/23/18 Metoprolol Tartrate [Lopressor] 50 mg PO BID 06/12/14 04/23/18 NIFEdipine [NIFEdipine ER] 60 mg PO DAILY 06/12/14 04/23/18 Calcium Acetate [Phoslo] 2,001 mg PO BID-W/MEALS 10/05/15 04/23/18 Prorenal 1 tab PO DAILY 12/15/15 04/23/18 Aspirin EC [Ecotrin Low Dose] 81 mg PO DAILY 11/29/16 04/23/18 Omeprazole 40 mg PO DAILY 11/29/16 04/23/18 Calcium Carb-Mag Carb-Folic 1 tab PO AC-BID 12/18/16 04/23/18 [Magnebind 400 Rx] Sodium Bicarbonate Tab 650 mg PO DAILY 12/18/16 04/23/18 Vit C/E/Zn/Coppr/Lutein/Zeaxan 1 cap PO DAILY 12/18/16 04/23/18 [Preservision Areds 2 Softgel] Allergies Allergy/AdvReac Type Severity Reaction Status Date / Time sulfamethoxazole AdvReac Unknown Nausea & Verified 05/04/18 11:46 [From Bactrim] Vomiting trimethoprim [From Bactrim] AdvReac Unknown Nausea & Verified 05/04/18 11:46 Vomiting Review of Systems ROS Other: All systems not noted in ROS Statement are negative. <Ming Gonsales - Last Filed: 05/04/18 11:27> ROS Other: All systems not noted in ROS Statement are negative. <Nestor Hastings - Last Filed: 05/04/18 12:04> ROS Statement: Those systems with pertinent positive or pertinent negative responses have been documented in the HPI. 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 History of Any Multi-Drug Resistant Organisms: None Reported Past Surgical History: Hernia Repair, Orthopedic Surgery Additional Past Surgical History / Comment(s): Bilateral cataract surgery, insertion dialysis catheter left arm, PICC line insertion/removed, bilateral inguinal hernina repairs, colonoscopy/polypectomy, R shoulder rotator cuff repair. Past Anesthesia/Blood Transfusion Reactions: No Reported Reaction Additional Past Anesthesia/Blood Transfusion Reaction / Comment(s): Pt received blood in past without reaction. Past Psychological History: Anxiety, Depression Smoking Status: Former smoker Past Alcohol Use History: None Reported Past Drug Use History: None Reported - Past Family History Mother Family Medical History: Diabetes Mellitus Father Family Medical History: Cancer <Ming Gonsales - Last Filed: 05/04/18 11:27> General Exam Limitations: no limitations General appearance: alert, in no apparent distress Head exam: Present: atraumatic, normocephalic, normal inspection Respiratory exam: Present: normal lung sounds bilaterally. Absent: respiratory distress, wheezes, rales, rhonchi, stridor Cardiovascular Exam: Present: regular rate, normal rhythm, normal heart sounds. Absent: systolic murmur, diastolic murmur, rubs, gallop, clicks Extremities exam: Present: other (Left foot there is an open blister noted just proximal to the first digit with some dry blood noted, pupils equal bilaterally there is a callus which is hard non-erythematous on the ball of the foot proximal to the new wound. Lateral portion a left foot there is a debrided wound with mild erythema, outline drawn is seen with no spreading of erythema) <Ming Gonsales - Last Filed: 05/04/18 11:27> Course <JoannaMing pollard - Last Filed: 05/04/18 11:27> <Nestor Hastings - Last Filed: 05/04/18 12:04> Vital Signs 05/04/18 10:01 Temperature 97.6 F Pulse Rate 66 Respiratory 18 Rate Blood Pressure 158/78 O2 Sat by Pulse 96 Oximetry - Reevaluation(s) Reevaluation #1: 05/04/18 12:03 PA supervision: I personally do a [id number] evaluation the patient did discuss findings with him and his . Patient does demonstrate evidence of a diabetic foot infection the left foot. He missed dialysis yesterday staff his foot. He has elevated creatinine today. I did discuss the case with Dr. Gillis who is covering nephrology today also discuss case with Dr. Shen from internal medicine patient will be admitted for inpatient treatment and evaluation. At this time patient has no evidence of respiratory distress. He does demonstrate erythema with increased localized temperature to the dorsal aspect of the lateral left foot he does have some blister formation that is new. No evidence of any osteomyelitis or gas in the foot on x-ray. (Nestor Hastings) Medical Decision Making - Lab Data Result diagrams: 05/04/18 10:27 05/04/18 10:27 <Ming Gonsales - Last Filed: 05/04/18 11:27> - Lab Data Result diagrams: 05/04/18 10:27 05/04/18 10:27 <Nestor Hastings - Last Filed: 05/04/18 12:04> - Lab Data Lab Results 05/04/18 05/04/18 Range/Units 10:27 10:27 WBC 13.1 H (3.8-10.6) k/uL RBC 3.04 L (4.30-5.90) m/uL Hgb 10.2 L (13.0-17.5) gm/dL Hct 31.8 L (39.0-53.0) % MCV 104.7 H (80.0-100.0) fL MCH 33.7 (25.0-35.0) pg MCHC 32.2 (31.0-37.0) g/dL RDW 14.3 (11.5-15.5) % Plt Count 270 (150-450) k/uL Neutrophils % 80 % Lymphocytes % 11 % Monocytes % 4 % Eosinophils % 4 % Basophils % 0 % Neutrophils # 10.4 H (1.3-7.7) k/uL Lymphocytes # 1.4 (1.0-4.8) k/uL Monocytes # 0.6 (0-1.0) k/uL Eosinophils # 0.5 (0-0.7) k/uL Basophils # 0.0 (0-0.2) k/uL Macrocytosis Moderate Sodium 141 (137-145) mmol/L Potassium 4.8 (3.5-5.1) mmol/L Chloride 102 (98-107) mmol/L Carbon Dioxide 20 L (22-30) mmol/L Anion Gap 19 mmol/L BUN 73 H (9-20) mg/dL Creatinine 9.43 H* (0.66-1.25) mg/dL Est GFR (CKD-EPI)AfAm 6 (>60 ml/min/1.73 sqM) Est GFR (CKD-EPI)NonAf 5 (>60 ml/min/1.73 sqM) Glucose 85 (74-99) mg/dL Calcium 8.7 (8.4-10.2) mg/dL C-Reactive Protein 80.9 H (<10.0) mg/L Disposition <Ming Gonsales - Last Filed: 05/04/18 11:27> <Nestor Hastings - Last Filed: 05/04/18 12:04> Clinical Impression: Diabetic foot ulcer, End stage renal disease on dialysis due to type 2 diabetes mellitus, Non-compliance with renal dialysis, Failure of outpatient treatment Disposition: ADMITTED IP TO THIS HOSP Condition: Fair
[2018-05-04 10:37] LABS: Basophils % (A) 0 %; Eosinophils # (A) 0.5 k/uL (0-0.7); Eosinophils % (A) 4 %; HCT 31.8 % (39.0-53.0); HGB 10.2 gm/dL (13.0-17.5); Lymphocytes # (A) 1.4 k/uL (1.0-4.8); Lymphocytes % (A) 11 %; MCH 33.7 pg (25.0-35.0); MCHC 32.2 g/dL (31.0-37.0); MCV 104.7 fL (80.0-100.0); Macrocytosis Moderate; Monocytes # (A) 0.6 k/uL (0-1.0); Monocytes % (A) 4 %; Neutrophils # (A) 10.4 k/uL (1.3-7.7); Neutrophils % (A) 80 %; Platelet Count 270 k/uL (150-450); RBC 3.04 m/uL (4.30-5.90); RDW 14.3 % (11.5-15.5); WBC 13.1 k/uL (3.8-10.6)
[2018-05-04 10:58] LABS: C Reactive Protein 80.9 mg/L (<10.0); Calcium 8.7 mg/dL (8.4-10.2); Potassium 4.8 mmol/L (3.5-5.1)
--- NOTE | 2018-05-04 11:13 | XR ---
EXAMINATION TYPE: XR foot complete LT DATE OF EXAM: 05/04/2018 CLINICAL HISTORY: History of diabetes with pain and redness. TECHNIQUE: Frontal, lateral, and oblique images of the left foot are obtained. COMPARISON: Left foot x-ray December 03, 2017 FINDINGS: There is no acute fracture/dislocation evident in the left foot. Demineralization is redem onstrated. Large inferior calcaneal spur is redemonstrated. No suspicious new cortical destruction or periosteal reaction is noted. Vascular calcification is again seen. IMPRESSION: There is no change from prior. There is no convincing radiographic evidence for acute os teomyelitis.
[2018-05-04] MEDS ORDERED: PIPERACILLIN-TAZOBACTAM 3.375 GM in SODIUM CHLORIDE 0.9% 100 ML IVPB STA (11:26)
[2018-05-04] MEDS ORDERED: VANCOMYCIN IV PER PHARMACY 1 EACH MISC MISCELLANE PRN (11:26)
[2018-05-04] MEDS ORDERED: NALOXONE 0.4 MG/ML 1 ML VIAL IV PRN (11:28)
[2018-05-04] MEDS ORDERED: VANCOMYCIN 2,000 MG in SODIUM CHLORIDE 0.9% 500 ML 500 ML IVPB STA (11:31)
[2018-05-04] MEDS: HYDROcodone/APAP 5-325MG 1 EACH TAB PO PRN ×3 (11:42→23:32)
--- NOTE | 2018-05-04 14:21 | P.HPIM ---
History of Present Illness This is a pleasant 67 years old male with past medical history of end-stage renal disease on hemodialysis, congestive heart failure, paroxysmal atrial fibrillation, diabetes mellitus, GERD, hypertension, rheumatoid arthritis , diabetic retinopathy [legally blind] bilateral leg edema, diabetic foot ulcer , bacterial endocarditis, chronic back pain, diabetic nephropathy who presents because of diabetic foot ulcer. Patient follow up with lamination spinner Dr. Echavarria, and the wound center for his diabetic foot ulcer , he has ulcers on both feet. However the main one was bothering him is at the base of the first metacarpo- pharyngeal joint on the plantar surface, and also sepsis looks surrounded by hard callus and there is some blood oozing from it, no surrounding cellulitis Also patient has ulcers on the lateral side of the fifth metacarpal bone on both feet, which looked chronic On admission vitals are stable, he has mild leukocytosis of 13.1, hemoglobin 10.2. Creatinine 9.4. C-reactive protein 18.9. Left foot x-ray: No evidence of acute osteomyelitis as per radiologist's report. In the emergency room patient got 1 dose of vancomycin and he was started on Zosyn Review of Systems CONSTITUTIONAL: No fever, no malaise, no fatigue. HEENT: No recent visual problems or hearing problems. Denied any sore throat. CARDIOVASCULAR: No orthopnea, PND, no palpitations, no syncope. PULMONARY: No shortness of breath, no cough, no hemoptysis. GASTROINTESTINAL: No diarrhea, no nausea, no vomiting, no abdominal pain. Normoactive bowel sounds. NEUROLOGICAL: No headaches, no weakness, no numbness. HEMATOLOGICAL: Denies any bleeding or petechiae. GENITOURINARY: Denies any burning micturition, frequency, or urgency. MUSCULOSKELETAL/RHEUMATOLOGICAL: Denies any joint pain, swelling, or any muscle pain. ENDOCRINE: Denies any polyuria or polydipsia. Past Medical History Past Medical History: Atrial Fibrillation, Heart Failure, Diabetes Mellitus, Dialysis, Eye Disorder, GERD/Reflux, Hypertension, Osteoarthritis (OA), Renal Disease, Rheumatoid Arthritis (RA) Additional Past Medical History / Comment(s): Chronic kidney failure with hemodialysis ---last hemo was Sunday03/20/16, IDDM type II, diabetic retinopathy-"legally blind", bilateral lower leg edema, cellulitis bilateral lower legs, current L foot ulcer, paroxysmal Afib, 2014 history of endocarditis with vegetation on mitral valve, anemia, hypo/hyperkalemia, sinus problems, bronchitis, back pain, chronic neuropathy with numbness/tingling occasionally in toes bilateral feet and L leg. History of Any Multi-Drug Resistant Organisms: None Reported Past Surgical History: Hernia Repair, Orthopedic Surgery Additional Past Surgical History / Comment(s): Bilateral cataract surgery, insertion dialysis catheter left arm, PICC line insertion/removed, bilateral inguinal hernina repairs, colonoscopy/polypectomy, R shoulder rotator cuff repair. Past Anesthesia/Blood Transfusion Reactions: No Reported Reaction Additional Past Anesthesia/Blood Transfusion Reaction / Comment(s): Pt received blood in past without reaction. Past Psychological History: Anxiety, Depression Additional Psychological History / Comment(s): Pt resides with his spouse. He ambulates independently. He is legally blind. He manages his medication using a magnifying glass. He does not drive, his spouse drives. He has used home care in the past, but none currently. Smoking Status: Former smoker Past Alcohol Use History: None Reported Additional Past Alcohol Use History / Comment(s): Pt started smoking in 1963 and quit in 1987. During that time, a pack of cigarettes would last 1 week. Past Drug Use History: None Reported - Past Family History Mother Family Medical History: Diabetes Mellitus Father Family Medical History: Cancer Medications and Allergies Home Medications Medication Instructions Recorded Confirmed Type Etanercept [Enbrel] 50 mg SQ LUU 06/12/14 04/23/18 History Furosemide [Lasix] 60 mg PO BID 06/12/14 04/23/18 History Gemfibrozil [Lopid] 600 mg PO AC-BID 06/12/14 04/23/18 History Insulin Glargine [Lantus] 70 unit SQ HS 06/12/14 04/23/18 History Insulin Lispro [humaLOG] See Protocol SQ AC-TID 06/12/14 04/23/18 History Metoprolol Tartrate [Lopressor] 50 mg PO BID 06/12/14 04/23/18 History NIFEdipine [NIFEdipine ER] 60 mg PO DAILY 06/12/14 04/23/18 History Calcium Acetate [Phoslo] 2,001 mg PO BID-W/MEALS 10/05/15 04/23/18 History Prorenal 1 tab PO DAILY 12/15/15 04/23/18 History Aspirin EC [Ecotrin Low Dose] 81 mg PO DAILY 11/29/16 04/23/18 History Omeprazole 40 mg PO DAILY 11/29/16 04/23/18 History Calcium Carb-Mag Carb-Folic 1 tab PO AC-BID 12/18/16 04/23/18 History [Magnebind 400 Rx] Sodium Bicarbonate Tab 650 mg PO DAILY 12/18/16 04/23/18 History Vit C/E/Zn/Coppr/Lutein/Zeaxan 1 cap PO DAILY 12/18/16 04/23/18 History [Preservision Areds 2 Softgel] Allergies Allergy/AdvReac Type Severity Reaction Status Date / Time sulfamethoxazole AdvReac Unknown Nausea & Verified 05/04/18 11:46 [From Bactrim] Vomiting trimethoprim [From Bactrim] AdvReac Unknown Nausea & Verified 05/04/18 11:46 Vomiting Physical Exam Vitals: Vital Signs Temp Pulse Resp BP Pulse Ox 05/04/18 12:06 53 L 18 131/60 99 05/04/18 10:01 97.6 F 66 18 158/78 96 Intake and Output 05/03/18 05/04/18 05/04/18 22:59 06:59 14:59 Other: Weight 121.109 kg GENERAL: The patient is alert and oriented x3, not in any acute distress. Well developed, well nourished. HEENT: Pupils are round and equally reacting to light. EOMI. No scleral icterus. No conjunctival pallor. Normocephalic, atraumatic. No pharyngeal erythema. No thyromegaly. CARDIOVASCULAR: S1 and S2 present. No murmurs, rubs, or gallops. PULMONARY: Chest is clear to auscultation, no wheezing or crackles. ABDOMEN: Soft, nontender, nondistended, normoactive bowel sounds. No palpable organomegaly. MUSCULOSKELETAL: No joint swelling or deformity. EXTREMITIES: No cyanosis, clubbing, or pedal edema. NEUROLOGICAL: Gross neurological examination did not reveal any focal deficits. SKIN: No rashes. Results CBC & Chem 7: 05/04/18 10:27 05/04/18 10:27 Labs: Abnormal Lab Results - Last 24 Hours (Table) 05/04/18 05/04/18 Range/Units 10:27 10:27 WBC 13.1 H (3.8-10.6) k/uL RBC 3.04 L (4.30-5.90) m/uL Hgb 10.2 L (13.0-17.5) gm/dL Hct 31.8 L (39.0-53.0) % MCV 104.7 H (80.0-100.0) fL Neutrophils # 10.4 H (1.3-7.7) k/uL Carbon Dioxide 20 L (22-30) mmol/L BUN 73 H (9-20) mg/dL Creatinine 9.43 H* (0.66-1.25) mg/dL C-Reactive Protein 80.9 H (<10.0) mg/L Thrombosis Risk Factor Assmnt - Choose All That Apply Each Factor Represents 1 point: Heart failure (<1month), Obesity (BMI >25) Other Risk Factors: Yes Each Risk Factor Represents 2 Points: Age 61-74 years Other congenital or acquired thrombophilia - If yes, enter type in comment: No Thrombosis Risk Factor Assessment Total Risk Factor Score: 4 Thrombosis Risk Factor Assessment Level: Moderate Risk Assessment and Plan Assessment: Diabetic foot ulcer End-stage renal disease on hemodialysis Type 2 diabetes mellitus Diabetic nephropathy Diabetic retinopathy Diabetic neuropathy Hypertension History of Chronic back pain History of Congestive heart failure History of paroxysmal atrial fibrillation History of rheumatoid arthritis and History of bacterial endocarditis History of GERD Plan: This is a pleasant 67 years old male who presents because of diabetic foot ulcer. Check ESR. We'll call infectious disease consult and surgical consult. Reed Worker to evaluate patient as he is on hemodialysis. We'll continue with antibiotic as per infectious disease team. Labs and medication were reviewed.. Continue same treatment. Continue with symptomatic treatment. Resume home medication. Monitor lytes and vitals. DVT and GI prophylaxis. Further recommendations of the clinical course of the patient DVT prophylaxis: Subcutaneous heparin GI Prophylaxis: Pepcid PT/OT: Pending Prognosis is guarded
[2018-05-04] MEDS ORDERED: HEPARIN SODIUM,PORCINE 5,000 UNIT/ML 1 ML VIAL SQ SCH (14:30)
--- NOTE | 2018-05-04 15:21 | P.NPCON ---
History of Present Illness - Reason for Consult end stage renal disease - Chief Complaint Wound infection in the legs - History of Present Illness ESRD patient of Dr. Dionicio LINK coming to the hospital with wound infection in the legs. His last dialysis was Sunday he missed dialysis on Sunday. No nausea vomiting diarrhea no chest pain or shortness of breath. He still makes urine. Currently started on Vanco and Zosyn for his wound infections. 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 History of Any Multi-Drug Resistant Organisms: None Reported Past Surgical History: Hernia Repair, Orthopedic Surgery Additional Past Surgical History / Comment(s): Bilateral cataract surgery, insertion dialysis catheter left arm, PICC line insertion/removed, bilateral inguinal hernina repairs, colonoscopy/polypectomy, R shoulder rotator cuff repair. Past Anesthesia/Blood Transfusion Reactions: No Reported Reaction Additional Past Anesthesia/Blood Transfusion Reaction / Comment(s): Pt received blood in past without reaction. Past Psychological History: Anxiety, Depression Additional Psychological History / Comment(s): Pt resides with his spouse. He ambulates independently. He is legally blind. He manages his medication using a magnifying glass. He does not drive, his spouse drives. He has used home care in the past, but none currently. Smoking Status: Former smoker Past Alcohol Use History: None Reported Additional Past Alcohol Use History / Comment(s): Pt started smoking in 1963 and quit in 1987. During that time, a pack of cigarettes would last 1 week. Past Drug Use History: None Reported - Past Family History Mother Family Medical History: Diabetes Mellitus Father Family Medical History: Cancer Medications and Allergies Home Medications Medication Instructions Recorded Confirmed Type Etanercept [Enbrel] 50 mg SQ Q7D 06/12/14 05/04/18 History Furosemide [Lasix] 40 mg PO BID 06/12/14 05/04/18 History Insulin Lispro [humaLOG] See Protocol SQ AC-TID 06/12/14 05/04/18 History Metoprolol Tartrate [Lopressor] 50 mg PO BID 06/12/14 05/04/18 History NIFEdipine [NIFEdipine ER] 60 mg PO DAILY 06/12/14 05/04/18 History Omeprazole 40 mg PO DAILY 11/29/16 05/04/18 History Cephalexin [Keflex] 500 mg PO Q8HR 05/04/18 05/04/18 History Clopidogrel Bisulfate [Plavix] 75 mg PO DAILY 05/04/18 05/04/18 History Allergies Allergy/AdvReac Type Severity Reaction Status Date / Time sulfamethoxazole AdvReac Unknown Nausea & Verified 05/04/18 11:46 [From Bactrim] Vomiting trimethoprim [From Bactrim] AdvReac Unknown Nausea & Verified 05/04/18 11:46 Vomiting Physical Exam Vitals: Vital Signs Temp Pulse Pulse Resp BP BP Pulse Ox 05/04/18 13:16 97.2 F L 62 18 169/79 99 05/04/18 12:06 53 L 18 131/60 99 05/04/18 10:01 97.6 F 66 18 158/78 96 Intake and Output 05/04/18 05/04/18 05/04/18 06:59 14:59 22:59 Intake Total 225 Balance 225 Intake: Oral 225 Other: Weight 121.109 kg No acute distress S1-S2 heard Lungs clear Left upper arm AV fistula Lower extremity wounds No edema Results - Lab Results Most recent lab results Calcium 8.7 mg/dL (8.4-10.2) 05/04/18 10:27 05/04/18 10:27 05/04/18 10:27 Assessment and Plan Assessment: #1 lower extremity wounds currently on antibiotics secondary to PAD #2 ESRD on hemodialysis [facility] missed treatment on Sunday #3 anemia with ESRD #4 hypertension with ESRD #5 metabolic bone disease Plan: #1 his electrolytes are okay and no volume issues plan dialysis on Sunday unless needed tomorrow #2 antibiotics as per infectious disease. #3 ESRD medications
[2018-05-04] MEDS: SEVELAMER 800 MG TAB PO SCH (17:18)
[2018-05-04] MEDS: FAMOTIDINE 20 MG/2 ML VIAL IV SCH (17:18)
[2018-05-04 17:49] LABS: Glucose,Whole Blood 168 mg/dL (75-99)
[2018-05-04] MEDS ORDERED: LIDOCAINE 1% INJ 10MG/ML (20 ML MDV) SQ ONE (19:04)
[2018-05-04] MEDS: HEPARIN SODIUM,PORCINE 5,000 UNIT/ML 1 ML VIAL SQ SCH (19:55)
[2018-05-04] MEDS: PIPERACILLIN-TAZOBACTAM 3.375 GM in SODIUM CHLORIDE 0.9% 100 ML IVPB SCH (19:55)
[2018-05-04 20:59] LABS: Glucose,Whole Blood 144 mg/dL (75-99)
[2018-05-04] MEDS: INSULIN ASPART 100 UNIT/ML 1 ML 10 ML VIAL SQ SCH (21:11)
[2018-05-04 23:13] LABS: Hemoglobin A1C 8.1 % (4.0-6.0)
--- NOTE | 2018-05-05 04:16 | CONS ---
CONSULTATION DATE OF SERVICE: 05/04/2018. REASON FOR CONSULTATION: Left diabetic foot ulcer with secondary cellulitis. HISTORY OF PRESENT ILLNESS: The patient is a 67-year-old male with a past medical history significant for a chronic nonhealing wound and callus formation to his left foot for which the patient currently follow up with [facility] center and . The patient is presenting to the [facility] ER with chief complaints of more pain, swelling and redness to his left foot area with some drainage. Apparently the patient is complaining of pain especially when he walks on it. He has no pain with his left foot is elevated up. Pain 9 out of 10 and is throbbing in nature with associated swelling and redness that has spread to the dorsum of his left foot area. With these symptoms, the patient was evaluated by the ER physician. On arrival the patient did have x-rays which was no change from prior. No clear evidence of acute osteomyelitis. The patient though did have no fever. White count was elevated at 18.1. The patient was started on Zosyn and vancomycin. Infectious Disease was consulted for further recommendation regarding antibiotic therapy. REVIEW OF SYSTEMS: Positive points have been mentioned in HPI. Rest of 14 point review of systems has been negative. PAST MEDICAL HISTORY: Atrial fibrillation, heart failure with hypertension, osteoarthritis and diabetes mellitus, end-stage renal disease on hemodialysis. PAST SURGICAL HISTORY: Bilateral cataract surgery, with stent placement, previous history of PICC line placement and removal, bilateral inguinal hernia repair, colonoscopy, polypectomy, right shoulder rotator cuff repair. SOCIAL HISTORY: Remote history of smoking. Denies drinking or drug use. FAMILY HISTORY: Mother history of diabetes. Father history of cancer. ALLERGIES: TO BACTRIM. MEDICATION: Medications include the patient is currently on Zosyn 3.7 q.12 hours, vancomycin, NovoLog, heparin, Pepcid and [place]. PHYSICAL EXAMINATION: Blood pressure is 165/72 with a pulse of 73, temperature 98.1. He is 97% on 2 L nasal cannula. General description is an elderly male lying in bed in no distress. No tachypnea or accessory muscles of respiration use. HEENT: Shows slight pallor. No scleral icterus. Oral mucosa membranes are dry. No pharyngeal erythema or thrush. Neck trachea central. No thyromegaly. LUNGS: Unlabored breathing. Clear to auscultation anteriorly. No wheeze or crackles. Heart S1, S2. Regular rate and rhythm. ABDOMEN: Soft, no tenderness. No guarding. No rigidity. Extremities: No edema of the feet. Examination of the left foot did have swelling and drainage, slightly warm to touch. The patient did have 2 calluses on the plantar aspect of the left foot with one of the blisters extending to it. The area was cleaned and deep cultures obtained. Neurologically: Patient is awake, alert, oriented x3. Mood and affect is normal. LABS: Hemoglobin is 10.2 with a white count of 13.9, BUN of 73, creatinine 1.43. X-ray report as mentioned above. IMPRESSION/PLAN: Patient with left diabetic foot infection in this patient who did have evidence of infected callus with secondary cellulitis of the left foot. The likely organism need to cover with the gram positive however, in view of the underlying callus infection not entirely excluded. PLAN: 1. Wound culture has been obtained. Both aerobic and anaerobic, that will guide further antibiotic therapy. 2. Recommend vascular surgery evaluation for debridement of the infected callus of the deep wound and also to determine the left foot infection. 3. Vancomycin, pharmacy to dose, target 15 and Zosyn 3.375 g q12 while waiting for the culture to finalize. 4. We will follow up on clinical condition and culture to further adjust medication if needed. Thank you for this consultation. We will follow this patient along with you. MMODL / IJN: [id number] /
[2018-05-05] MEDS: HYDROcodone/APAP 5-325MG 1 EACH TAB PO PRN ×4 (04:43→23:39)
[2018-05-05 07:27] LABS: Glucose,Whole Blood 129 mg/dL (75-99)
[2018-05-05] MEDS: INSULIN ASPART 100 UNIT/ML 1 ML 10 ML VIAL SQ SCH ×4 (07:58→20:41)
--- NOTE | 2018-05-05 08:35 | P.PN ---
Subjective This is a pleasant 67 years old male with past medical history of end-stage renal disease on hemodialysis, congestive heart failure, paroxysmal atrial fibrillation, diabetes mellitus, GERD, hypertension, rheumatoid arthritis , diabetic retinopathy [legally blind] bilateral leg edema, diabetic foot ulcer , bacterial endocarditis, chronic back pain, diabetic nephropathy who presents because of diabetic foot ulcer. Patient follow up with dispatcher clerk Dr. Echavarria, and the wound center for his diabetic foot ulcer , he has ulcers on both feet. However the main one was bothering him is at the base of the first metacarpo- pharyngeal joint on the plantar surface, and also sepsis looks surrounded by hard callus and there is some blood oozing from it, no surrounding cellulitis Also patient has ulcers on the lateral side of the fifth metacarpal bone on both feet, which looked chronic On admission vitals are stable, he has mild leukocytosis of 13.1, hemoglobin 10.2. Creatinine 9.4. C-reactive protein 18.9. Left foot x-ray: No evidence of acute osteomyelitis as per radiologist's report. In the emergency room patient got 1 dose of vancomycin and he was started on Zosyn 05/05/2018 Patient feels comfortable. No chest pain or dyspnea. Patient is going for possible debridement of his diabetic ulcer by surgical team today. Nephrology evaluation is appreciated. Patient Has Hemodialysis Tomorrow. Patient with No Chest Pain or Dyspnea. And lung Examination Looks Clear. Objective - Vital Signs Vital signs: Vital Signs Temp 97.8 F 05/05/18 07:22 Pulse 74 05/05/18 07:22 Resp 18 05/05/18 07:22 BP 167/89 05/05/18 07:22 Pulse Ox 96 05/05/18 07:22 Intake & Output 05/04/18 05/05/18 05/05/18 18:59 06:59 18:59 Intake Total 225 500 Balance 225 500 Weight 121.109 kg Intake: Oral 225 500 Other: # Voids 1 # Bowel Movements 1 # Emeses 1 - Exam GENERAL: The patient is alert and oriented x3, not in any acute distress. Well developed, well nourished. HEENT: Pupils are round and equally reacting to light. EOMI. No scleral icterus. No conjunctival pallor. Normocephalic, atraumatic. No pharyngeal erythema. No thyromegaly. CARDIOVASCULAR: S1 and S2 present. No murmurs, rubs, or gallops. PULMONARY: Chest is clear to auscultation, no wheezing or crackles. ABDOMEN: Soft, nontender, nondistended, normoactive bowel sounds. No palpable organomegaly. MUSCULOSKELETAL: No joint swelling or deformity. EXTREMITIES: No cyanosis, clubbing, or pedal edema. NEUROLOGICAL: Gross neurological examination did not reveal any focal deficits. SKIN: No rashes. - Labs CBC & Chem 7: 05/04/18 10:27 05/04/18 10:27 Labs: Abnormal Lab Results - Last 24 Hours (Table) 05/04/18 05/04/18 05/04/18 Range/Units 10:27 10:27 10:27 WBC 13.1 H (3.8-10.6) k/uL RBC 3.04 L (4.30-5.90) m/uL Hgb 10.2 L (13.0-17.5) gm/dL Hct 31.8 L (39.0-53.0) % MCV 104.7 H (80.0-100.0) fL Neutrophils # 10.4 H (1.3-7.7) k/uL Carbon Dioxide 20 L (22-30) mmol/L BUN 73 H (9-20) mg/dL Creatinine 9.43 H* (0.66-1.25) mg/dL POC Glucose (mg/dL) (75-99) mg/dL Hemoglobin A1c 8.1 H (4.0-6.0) % C-Reactive Protein 80.9 H (<10.0) mg/L 05/04/18 05/04/18 05/05/18 Range/Units 17:37 20:54 07:20 WBC (3.8-10.6) k/uL RBC (4.30-5.90) m/uL Hgb (13.0-17.5) gm/dL Hct (39.0-53.0) % MCV (80.0-100.0) fL Neutrophils # (1.3-7.7) k/uL Carbon Dioxide (22-30) mmol/L BUN (9-20) mg/dL Creatinine (0.66-1.25) mg/dL POC Glucose (mg/dL) 168 H 144 H 129 H (75-99) mg/dL Hemoglobin A1c (4.0-6.0) % C-Reactive Protein (<10.0) mg/L Microbiology - Last 24 Hours (Table) 05/04/18 16:00 Gram Stain - Preliminary Foot - Left Wound Culture - Preliminary 05/04/18 16:00 Anaerobic Culture - Preliminary Foot - Left Assessment and Plan Assessment: Diabetic foot ulcer End-stage renal disease on hemodialysis Type 2 diabetes mellitus Diabetic nephropathy Diabetic retinopathy Diabetic neuropathy Hypertension History of Chronic back pain History of Congestive heart failure History of paroxysmal atrial fibrillation History of rheumatoid arthritis and History of bacterial endocarditis History of GERD Plan: This is a pleasant 67 years old male who presents because of diabetic foot ulcer. Check ESR. We'll call infectious disease consult and surgical consult. Comprehensive Advisor to evaluate patient as he is on hemodialysis. We'll continue with antibiotic as per infectious disease team. Labs and medication were reviewed.. Continue same treatment. Continue with symptomatic treatment. Resume home medication. Monitor lytes and vitals. DVT and GI prophylaxis. Further recommendations of the clinical course of the patient DVT prophylaxis: Subcutaneous heparin GI Prophylaxis: Pepcid PT/OT: Pending Prognosis is guarded
[2018-05-05] MEDS: SEVELAMER 800 MG TAB PO SCH ×3 (08:40→17:24)
[2018-05-05] MEDS: FAMOTIDINE 20 MG/2 ML VIAL IV SCH (08:40)
[2018-05-05] MEDS: PIPERACILLIN-TAZOBACTAM 3.375 GM in SODIUM CHLORIDE 0.9% 100 ML IVPB SCH ×2 (08:40→21:16)
[2018-05-05] MEDS: FOLIC ACID-VIT B COMPLEX-VIT C 1 CAP PO SCH (08:40)
[2018-05-05] MEDS ORDERED: VANCOMYCIN 2,000 MG in SODIUM CHLORIDE 0.9% 500 ML 500 ML IVPB ONE (09:00)
[2018-05-05] MEDS: HEPARIN SODIUM,PORCINE 5,000 UNIT/ML 1 ML VIAL SQ SCH ×2 (10:25→20:41)
[2018-05-05 11:55] LABS: Glucose,Whole Blood 181 mg/dL (75-99)
--- NOTE | 2018-05-05 12:54 | P.PN ---
Subjective Progress Note Date: 05/05/18 Seen and examined for the follow-up of ESRD on dialysis. Feeling better today currently getting antibiotics for his wound infections. Objective - Vital Signs Vital signs: Vital Signs Temp 97.8 F 05/05/18 07:22 Pulse 74 05/05/18 07:22 Resp 18 05/05/18 07:22 BP 167/89 05/05/18 07:22 Pulse Ox 96 05/05/18 07:22 Intake & Output 05/04/18 05/05/18 05/05/18 18:59 06:59 18:59 Intake Total 225 500 Balance 225 500 Weight 121.109 kg Intake: Oral 225 500 Other: # Voids 1 1 # Bowel Movements 1 2 # Emeses 1 - Exam No acute distress S1-S2 heard Diminished breath sounds Lower extremity trace edema and cellulitis - Labs CBC & Chem 7: 05/04/18 10:27 05/04/18 10:27 Labs: Abnormal Lab Results - Last 24 Hours (Table) 05/04/18 05/04/18 05/04/18 Range/Units 10:27 17:37 20:54 POC Glucose (mg/dL) 168 H 144 H (75-99) mg/dL Hemoglobin A1c 8.1 H (4.0-6.0) % 05/05/18 05/05/18 Range/Units 07:20 11:41 POC Glucose (mg/dL) 129 H 181 H (75-99) mg/dL Hemoglobin A1c (4.0-6.0) % Microbiology - Last 24 Hours (Table) 05/04/18 16:00 Gram Stain - Preliminary Foot - Left Wound Culture - Preliminary 05/04/18 16:00 Anaerobic Culture - Preliminary Foot - Left Assessment and Plan Assessment: #1 lower extremity wounds currently on antibiotics secondary to PAD #2 ESRD on hemodialysis [facility] missed treatment on Sunday #3 anemia with ESRD #4 hypertension with ESRD #5 metabolic bone disease Plan: #1 hemodialysis tomorrow #2 antibiotics as per infectious disease. #3 ESRD medications
[2018-05-05 17:23] LABS: Glucose,Whole Blood 276 mg/dL (75-99)
[2018-05-05 20:29] LABS: Glucose,Whole Blood 321 mg/dL (75-99)
[2018-05-05] MEDS: INSULIN DETEMIR 100 UNIT/ML 10 ML VIAL SQ SCH (21:41)
--- NOTE | 2018-05-06 00:05 | PN ---
PROGRESS NOTE DATE OF SERVICE: 05/05/2018. REASON FOR FOLLOWUP: Left diabetic foot infection and callus. INTERVAL HISTORY: The patient is currently afebrile. He is breathing comfortably. Denies any chest pain or cough. No abdominal pain or diarrhea. to the left foot area. PHYSICAL EXAMINATION: Blood pressure 145/55 with a pulse of 72, temperature 97.7. He is 96% on room air. General description is an elderly male lying in bed in no distress. Respiratory system: Unlabored breathing. Clear to auscultation anteriorly. Heart S1, S2. Regular rate and rhythm. ABDOMEN: Soft, no tenderness. Left foot is currently dressed up. No obvious drainage on the dressing. LABS: Wound culture to Staph aureus. DIAGNOSTIC IMPRESSION AND PLAN: Patient with left diabetic foot infection with infected callus awaiting for surgical debridement to determine the depth of this infection to determine the duration of discharge antibiotics, currently on Zosyn and vancomycin. Continue for now. present at bedside. Questions and concerns were answered. MMODL / IJN: [id number] /
[2018-05-06 02:06] LABS: Glucose,Whole Blood 175 mg/dL (75-99)
[2018-05-06 07:12] LABS: Glucose,Whole Blood 111 mg/dL (75-99)
[2018-05-06] MEDS: INSULIN ASPART 100 UNIT/ML 1 ML 10 ML VIAL SQ SCH ×4 (08:06→20:43)
[2018-05-06] MEDS: FOLIC ACID-VIT B COMPLEX-VIT C 1 CAP PO SCH (08:09)
[2018-05-06] MEDS: FAMOTIDINE 20 MG/2 ML VIAL IV SCH (08:09)
[2018-05-06] MEDS: SEVELAMER 800 MG TAB PO SCH ×3 (08:09→18:18)
[2018-05-06] MEDS: HEPARIN SODIUM,PORCINE 5,000 UNIT/ML 1 ML VIAL SQ SCH ×2 (08:09→20:42)
[2018-05-06 08:32] LABS: Calcium 8.3 mg/dL (8.4-10.2); Potassium 4.5 mmol/L (3.5-5.1)
[2018-05-06] MEDS ORDERED: LIDOCAINE 1% INJ 10MG/ML (20 ML MDV) SQ ONE (09:00)
--- NOTE | 2018-05-06 09:43 | P.PN ---
Subjective This is a pleasant 67 years old male with past medical history of end-stage renal disease on hemodialysis, congestive heart failure, paroxysmal atrial fibrillation, diabetes mellitus, GERD, hypertension, rheumatoid arthritis , diabetic retinopathy [legally blind] bilateral leg edema, diabetic foot ulcer , bacterial endocarditis, chronic back pain, diabetic nephropathy who presents because of diabetic foot ulcer. Patient follow up with salesman/owner Dr. Echavarria, and the wound center for his diabetic foot ulcer , he has ulcers on both feet. However the main one was bothering him is at the base of the first metacarpo- pharyngeal joint on the plantar surface, and also sepsis looks surrounded by hard callus and there is some blood oozing from it, no surrounding cellulitis Also patient has ulcers on the lateral side of the fifth metacarpal bone on both feet, which looked chronic On admission vitals are stable, he has mild leukocytosis of 13.1, hemoglobin 10.2. Creatinine 9.4. C-reactive protein 18.9. Left foot x-ray: No evidence of acute osteomyelitis as per radiologist's report. In the emergency room patient got 1 dose of vancomycin and he was started on Zosyn 05/05/2018 Patient feels comfortable. No chest pain or dyspnea. Patient is going for possible debridement of his diabetic ulcer by surgical team today. Nephrology evaluation is appreciated. Patient Has Hemodialysis Tomorrow. Patient with No Chest Pain or Dyspnea. And lung Examination Looks Clear. 05/06/2018 Patient is lying in bed comfortable. He has hemodialysis, going on as i am seeing the patient. he does not seem in distress with no chest pain or dyspnea. No abdominal pain. Patient is going for surgical debridement of his diabetic ulcer today. Infectious disease R following the patient. He is currently on vancomycin and Zosyn.ESR is elevated at 127 Objective - Vital Signs Vital signs: Vital Signs Temp 98.5 F 05/06/18 05:50 Pulse 77 05/06/18 05:50 Resp 20 05/06/18 05:50 BP 162/62 05/06/18 05:50 Pulse Ox 94 L 05/06/18 05:50 Intake & Output 05/05/18 05/06/18 05/06/18 18:59 06:59 18:59 Intake Total 600 950 Balance 600 950 Weight 123.8 kg Intake: Intake, IV Titration 600 Amount Piperacillin-Tazobactam 3 100 .375 gm In Sodium Chloride 0.9% 100 ml @ 25 mls/hr IVPB Q12HR [facility] Rx #:[id number] Vancomycin 2,000 mg In 500 Sodium Chloride 0.9% 500 ml 500 ml @ 167 mls/hr IVPB ONCE ONE Rx#: [id number] Oral 950 Other: Voiding Method Urinal Urinal # Voids 1 3 # Bowel Movements 2 1 - Exam GENERAL: The patient is alert and oriented x3, not in any acute distress. Well developed, well nourished. HEENT: Pupils are round and equally reacting to light. EOMI. No scleral icterus. No conjunctival pallor. Normocephalic, atraumatic. No pharyngeal erythema. No thyromegaly. CARDIOVASCULAR: S1 and S2 present. No murmurs, rubs, or gallops. PULMONARY: Chest is clear to auscultation, no wheezing or crackles. ABDOMEN: Soft, nontender, nondistended, normoactive bowel sounds. No palpable organomegaly. MUSCULOSKELETAL: No joint swelling or deformity. EXTREMITIES: No cyanosis, clubbing, or pedal edema. NEUROLOGICAL: Gross neurological examination did not reveal any focal deficits. SKIN: No rashes. - Labs CBC & Chem 7: 05/04/18 10:27 05/06/18 07:45 Labs: Abnormal Lab Results - Last 24 Hours (Table) 05/05/18 05/05/18 05/05/18 Range/Units 11:41 16:53 20:13 ESR (0-15) mm/hr Carbon Dioxide (22-30) mmol/L BUN (9-20) mg/dL Creatinine (0.66-1.25) mg/dL POC Glucose (mg/dL) 181 H 276 H 321 H (75-99) mg/dL Calcium (8.4-10.2) mg/dL 05/06/18 05/06/18 05/06/18 Range/Units 02:03 06:59 07:45 ESR 127 H (0-15) mm/hr Carbon Dioxide (22-30) mmol/L BUN (9-20) mg/dL Creatinine (0.66-1.25) mg/dL POC Glucose (mg/dL) 175 H 111 H (75-99) mg/dL Calcium (8.4-10.2) mg/dL 02/04/19 Range/Units 07:45 ESR (0-15) mm/hr Carbon Dioxide 20 L (22-30) mmol/L BUN 82 H (9-20) mg/dL Creatinine 10.13 H* (0.66-1.25) mg/dL POC Glucose (mg/dL) (75-99) mg/dL Calcium 8.3 L (8.4-10.2) mg/dL Microbiology - Last 24 Hours (Table) 05/04/18 16:00 Gram Stain - Preliminary Foot - Left Wound Culture - Preliminary Presumptive Staph aureus Assessment and Plan Assessment: Diabetic foot ulcer End-stage renal disease on hemodialysis Type 2 diabetes mellitus Diabetic nephropathy Diabetic retinopathy Diabetic neuropathy Hypertension History of Chronic back pain History of Congestive heart failure History of paroxysmal atrial fibrillation History of rheumatoid arthritis and History of bacterial endocarditis History of GERD Plan: This is a pleasant 67 years old male who presents because of diabetic foot ulcer. Check ESR. We'll call infectious disease consult and surgical consult. Coding And Reimbursement Specialist to evaluate patient as he is on hemodialysis. We'll continue with antibiotic as per infectious disease team. Labs and medication were reviewed.. Continue same treatment. Continue with symptomatic treatment. Resume home medication. Monitor lytes and vitals. DVT and GI prophylaxis. Further recommendations of the clinical course of the patient DVT prophylaxis: Subcutaneous heparin GI Prophylaxis: Pepcid PT/OT: Pending Prognosis is guarded
[2018-05-06] MEDS: PIPERACILLIN-TAZOBACTAM 3.375 GM in SODIUM CHLORIDE 0.9% 100 ML IVPB SCH ×2 (11:42→20:42)
[2018-05-06 11:47] LABS: Glucose,Whole Blood 104 mg/dL (75-99)
[2018-05-06] MEDS: HYDROcodone/APAP 5-325MG 1 EACH TAB PO PRN ×2 (13:08→18:20)
[2018-05-06 14:52] VITALS: BMI 34.1
[2018-05-06 17:02] LABS: Glucose,Whole Blood 306 mg/dL (75-99)
--- NOTE | 2018-05-06 19:39 | PCN ---
PROCEDURE NOTE PREOP DIAGNOSIS: An infected callus left foot, base of the big toe plantar aspect and measurement is 3 x 1 cm and also there is an infected callus left foot lateral aspect 2 x 1 cm. DESCRIPTION OF PROCEDURE: The patient was seen and Hurricaine applied to the wound. The foot was prepped and drapes applied in the usual sterile manner. Using a sharp knife, we excised the callus at the base of the big toe plantar aspect and all the callus was removed. Some bleeding was noted which was controlled and then attention was paid to the lateral aspect of the left foot and using sharp knife, we excised the callus down to subcutaneous tissue and callus was removed. We took some deep culture. This wound was irrigated with saline. PLAN: Replace Aquacel silver on a daily basis and continue with IV antibiotics. Follow with you. MMJARONL / IJN: [id number] /
[2018-05-06] MEDS: INSULIN DETEMIR 100 UNIT/ML 10 ML VIAL SQ SCH (20:43)
[2018-05-06 20:44] LABS: Glucose,Whole Blood 321 mg/dL (75-99)
--- NOTE | 2018-05-06 21:39 | PN ---
PROGRESS NOTE Patient is seen for followup for end-stage renal disease. He is currently maintained on IV antibiotics for left diabetic foot infection. The patient will have wound debridement as well. He is normally maintained on a Sunday, Sunday, Sunday schedule for dialysis and he was dialyzed today. PHYSICAL EXAMINATION: This morning blood pressure was 168/77, heart rate 74 per minute. He is afebrile. Examination of the heart S1, S2. Examination lungs bilateral breath sounds are heard. Abdomen is soft, nontender. Examination lower extremities shows edema 1+ bilaterally. Chronic skin changes. Both feet are currently wrapped. LAB: Show sodium 137, potassium 4.5. Random Vanco level was 24. ASSESSMENT: 1. End-stage renal disease, on hemodialysis on a Sunday, Sunday, Sunday schedule. 2. Left diabetic foot infection maintained on IV antibiotics, going for debridement today, being followed by vascular surgery and ID. Wound culture grew Staphylococcus aureus which is MSSA. 3. CKD mineral bone disorder maintained on Renvela. 4. Anemia of chronic disease. We will maintain patient on Aranesp. PLAN: Add Aranesp. Hemodialysis on Sunday. MMODL / IJN: [id number] /
[2018-05-07 02:15] LABS: Glucose,Whole Blood 175 mg/dL (75-99)
[2018-05-07 04:15] LABS: Glucose,Whole Blood 124 mg/dL (75-99)
[2018-05-07] MEDS: HYDROcodone/APAP 5-325MG 1 EACH TAB PO PRN ×4 (05:48→21:26)
--- NOTE | 2018-05-07 06:03 | PN ---
PROGRESS NOTE DATE OF SERVICE: 05/06/2018 REASON FOR FOLLOWUP: Left foot infected infected callus and cellulitis. INTERVAL HISTORY: The patient is afebrile. The patient is status post surgery done by Vascular with removal of the infected callus, which was yesterday morning down to the subcutaneous tissue. No extension down further. Patient tolerated the procedure. The patient denies having any chest pain, shortness of breath or cough. No abdominal pain or any diarrhea. PHYSICAL EXAMINATION: On examination, blood pressure is 130/55 with a pulse of 74, temperature 97.5. He is 96% on room air. General description is an elderly male lying in bed in no distress. RESPIRATORY SYSTEM: Unlabored breathing, clear to auscultation anteriorly. HEART: S1, S2. Regular rate and rhythm. ABDOMEN: Soft, no tenderness. Left foot is currently dressed up. No obvious drainage on the dressing. LABS: BUN of 82, creatinine is 10.13. Wound culture finalized with MSSA. DIAGNOSTIC IMPRESSION AND PLAN: Patient with left diabetic foot infection with infected callus. Culture positive for MSSA. Anaerobic cultures currently pending. Antibiotic will be adjusted to cefazolin 2 grams daily. Discontinue vancomycin and Zosyn. Local wound care with Aquacel Silver dressing. Wound infection not extending below the subcutaneous tissue hopefully will finish therapy with oral antibiotics. Continue supportive care. MMODL / IJN: [id number] /
[2018-05-07 07:27] LABS: Glucose,Whole Blood 187 mg/dL (75-99)
[2018-05-07] MEDS: INSULIN ASPART 100 UNIT/ML 1 ML 10 ML VIAL SQ SCH ×4 (08:08→21:27)
[2018-05-07] MEDS: SEVELAMER 800 MG TAB PO SCH ×3 (08:08→17:24)
[2018-05-07] MEDS: ceFAZolin IN SWFI 2 GM/20 ML SYRINGE IVP SCH (08:08)
[2018-05-07] MEDS: FAMOTIDINE 20 MG TAB PO SCH (08:08)
[2018-05-07] MEDS: HEPARIN SODIUM,PORCINE 5,000 UNIT/ML 1 ML VIAL SQ SCH ×2 (08:08→21:27)
[2018-05-07] MEDS: FOLIC ACID-VIT B COMPLEX-VIT C 1 CAP PO SCH (08:09)
[2018-05-07] MEDS ORDERED: DARBEPOETIN ALFA 60 MCG/0.3 ML SYRINGE SQ SCH (09:00)
[2018-05-07 12:12] LABS: Glucose,Whole Blood 234 mg/dL (75-99)
[2018-05-07 17:28] LABS: Glucose,Whole Blood 250 mg/dL (75-99)
[2018-05-07 20:33] LABS: Glucose,Whole Blood 221 mg/dL (75-99)
[2018-05-07] MEDS: INSULIN DETEMIR 100 UNIT/ML 10 ML VIAL SQ SCH (21:27)
--- NOTE | 2018-05-07 23:58 | PN ---
PROGRESS NOTE DATE OF SERVICE: 05/07/2018. REASON FOR FOLLOWUP: Left diabetic foot infection. INTERVAL HISTORY: The patient is currently afebrile. He is breathing comfortably. Denies having any chest pain. No abdominal pain or pain to the left foot area. PHYSICAL EXAMINATION: On admission, blood pressure 130/60 with a pulse of 60, temperature 97.8. He is 96% on room air. GENERAL DESCRIPTION: An elderly male up in the bed in no distress. RESPIRATORY SYSTEM: Unlabored breathing. Clear to auscultation anteriorly. HEART: S1, S2. Regular rate and rhythm. No tenderness. EXTREMITIES: Left foot covered, drainage on the dressing. LABS: No new labs have been obtained today. DIAGNOSTIC IMPRESSION AND PLAN: Patient with left foot diabetic foot infection with no evidence of any deep infection per Vascular Surgery. Culture positive for MSSA. Currently on cefazolin. Possible repeat debridement as described. The patient was cleared for discharge from his cultures, will transition to oral antibiotic. Continue supportive care. MMODL / IJN: [id number] /
--- NOTE | 2018-05-08 00:49 | P.PN ---
Subjective Progress Note Date: 05/07/18 Principal diagnosis: Foot ulcer This is a pleasant 67 years old male with past medical history of end-stage renal disease on hemodialysis, congestive heart failure, paroxysmal atrial fibrillation, diabetes mellitus, GERD, hypertension, rheumatoid arthritis , diabetic retinopathy [legally blind] bilateral leg edema, diabetic foot ulcer , bacterial endocarditis, chronic back pain, diabetic nephropathy who presents because of diabetic foot ulcer. 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 Echavarria, and the wound center for his diabetic foot ulcer , he has ulcers on both feet. However the main one was bothering him is at the base of the first metacarpo- pharyngeal joint on the plantar surface, and also sepsis looks surrounded by hard callus and there is some blood oozing from it, no surrounding cellulitis Also patient has ulcers on the lateral side of the fifth metacarpal bone on both feet, which looked chronic On admission vitals are stable, he has mild leukocytosis of 13.1, hemoglobin 10.2. Creatinine 9.4. C-reactive protein 18.9. Left foot x-ray: No evidence of acute osteomyelitis as per radiologist's report. In the emergency room patient got 1 dose of vancomycin and he was started on Zosyn 05/05/2018 Patient feels comfortable. No chest pain or dyspnea. Patient is going for possible debridement of his diabetic ulcer by surgical team today. Nephrology evaluation is appreciated. Patient Has Hemodialysis Tomorrow. Patient with No Chest Pain or Dyspnea. And lung Examination Looks Clear. 05/06/2018 Patient is lying in bed comfortable. He has hemodialysis, going on as i am seeing the patient. he does not seem in distress with no chest pain or dyspnea. No abdominal pain. Patient is going for surgical debridement of his diabetic ulcer today. Infectious disease R following the patient. He is currently on vancomycin and Zosyn.ESR is elevated at 127 05/07/2018 Patient is status post debridement of diabetic foot ulcers. Wound cultures are pending. Currently on antibiotics as per ID. General surgery and ID is following. No fever no chills. No other acute overnight issues. Awaiting final wound cultures. Current medications reviewed. Objective - Vital Signs Vital signs: Vital Signs Temp 97.9 F 05/07/18 07:00 Pulse 71 05/07/18 07:00 Resp 18 05/07/18 07:00 BP 157/64 05/07/18 07:00 Pulse Ox 97 05/07/18 07:00 Intake & Output 05/06/18 05/07/18 05/07/18 18:59 06:59 18:59 Intake Total 540 650 240 Output Total 200 Balance 540 450 240 Weight 123.8 kg 122.1 kg Intake: Oral 540 650 240 Output: Urine 200 Other: Voiding Method Urinal # Voids 1 2 # Bowel Movements 0 - Exam PHYSICAL EXAMINATION: Patient is lying in the bed comfortably, no acute distress, awake alert and oriented.. HEENT: Normocephalic. Neck is supple. Pupils reactive. Nostrils clear. Oral cavity is moist. Ears reveal no drainage. Neck reveals no JVD, carotid bruits, or thyromegaly. CHEST EXAMINATION: Trachea is central. Symmetrical expansion. Lung albarran clear to auscultation and percussion. CARDIAC: Normal S1, S2 with no gallops. No murmurs ABDOMEN: Soft. Bowel sounds normal. No organomegaly. No abdominal bruits. Extremities: reveal no edema. No clubbing or cyanosis. Left foot ulcer is bandaged. Neurologically awake, alert, oriented x3 with well-coordinated movements. No focal deficits noted Skin: No rash or skin lesions. Psychiatric: Coperative. Nonsuicidal Musculoskeletal: No joint swelling or deformity. Normal range of motion. - Labs CBC & Chem 7: 05/04/18 10:27 05/06/18 07:45 Labs: Abnormal Lab Results - Last 24 Hours (Table) 05/06/18 05/06/18 05/07/18 Range/Units 16:47 20:35 02:12 POC Glucose (mg/dL) 306 H 321 H 175 H (75-99) mg/dL 05/07/18 05/07/18 05/07/18 Range/Units 04:13 07:12 12:02 POC Glucose (mg/dL) 124 H 187 H 234 H (75-99) mg/dL Microbiology - Last 24 Hours (Table) 05/06/18 18:14 Gram Stain - Preliminary Foot - Left Wound Culture - Preliminary 05/06/18 18:14 Anaerobic Culture - Preliminary Foot - Left 05/04/18 16:00 Gram Stain - Final Foot - Left Wound Culture - Final Staphylococcus aureus 05/04/18 16:00 Anaerobic Culture - Preliminary Foot - Left Assessment and Plan Assessment: Left Diabetic foot ulcer status post debridement. Awaiting wound culture report. End-stage renal disease on hemodialysis Type 2 diabetes mellitus Diabetic nephropathy Diabetic retinopathy Diabetic neuropathy Anemia of chronic disease Hypertension History of Chronic back pain History of Congestive heart failure History of paroxysmal atrial fibrillation History of rheumatoid arthritis and History of bacterial endocarditis History of GERD Plan: This is a pleasant 67 years old male who presents because of diabetic foot ulcer. Current with antibiotics. ID and vascular surgery and nephrology is following.. Er Manager to evaluate patient as he is on hemodialysis. We'll continue with antibiotic as per infectious disease team. Labs and medication were reviewed.. Continue same treatment. Continue with symptomatic treatment. Resume home medication. Monitor lytes and vitals. DVT and GI prophylaxis. Further recommendations of the clinical course of the patient DVT prophylaxis: Subcutaneous heparin GI Prophylaxis: Pepcid PT/OT: Pending Prognosis is guarded Time with Patient: Greater than 30
[2018-05-08] MEDS: HYDROcodone/APAP 5-325MG 1 EACH TAB PO PRN ×2 (05:57→10:59)
[2018-05-08] MEDS: FOLIC ACID-VIT B COMPLEX-VIT C 1 CAP PO SCH (07:30)
[2018-05-08] MEDS: SEVELAMER 800 MG TAB PO SCH ×2 (07:30→13:12)
[2018-05-08] MEDS: INSULIN ASPART 100 UNIT/ML 1 ML 10 ML VIAL SQ SCH ×2 (07:30→13:12)
[2018-05-08] MEDS: FAMOTIDINE 20 MG TAB PO SCH (07:30)
[2018-05-08 07:31] LABS: Glucose,Whole Blood 140 mg/dL (75-99)
[2018-05-08] MEDS: HEPARIN SODIUM,PORCINE 5,000 UNIT/ML 1 ML VIAL SQ SCH (07:31)
[2018-05-08] MEDS: ceFAZolin IN SWFI 2 GM/20 ML SYRINGE IVP SCH (07:31)
[2018-05-08 07:57] VITALS: BP 160/66; PULSE 71; RESP 18; TEMP 97.9
[2018-05-08 11:45] LABS: Glucose,Whole Blood 233 mg/dL (75-99)
--- NOTE | 2018-05-08 16:38 | PN ---
PROGRESS NOTE DATE OF SERVICE: 05/08/2018. REASON FOR FOLLOWUP: Left diabetic foot infection with infected callus MSSA. INTERVAL HISTORY: The patient was seen on rounds early this afternoon. The patient has been afebrile. He was breathing comfortably. The patient denies having any chest pain, shortness of breath or cough. No abdominal pain or any diarrhea with antibiotic therapy. No pain to the left foot area. PHYSICAL EXAMINATION: Blood pressure is 150/66 with a pulse of 71, temperature 97.9. He is 93% on room air. General description is an elderly male lying in bed in no distress. Respiratory system: Unlabored breathing. Clear to auscultation anteriorly. Heart S1, S2. Regular rate and rhythm. Abdomen soft, no tenderness. Left foot plantar aspect wound is superficial. down deep to the fascia. Surrounding swelling and redness has improved. No foul smelling or drainage. LABS: No new labs have been obtained today. DIAGNOSTIC IMPRESSION AND PLAN: Patient with left diabetic foot infection with infected callus, status post debridement. The patient seemed to have shown overall clinical improvement. Antibiotic was transitioned to Keflex 500 mg b.i.d. to adjust to his kidney function for 10 days. Prescription was sent to the pharmacy. Continue supportive care. MMODL / IJN: [id number] /
--- NOTE | 2018-05-08 23:47 | PN ---
PROGRESS NOTE Patient is seen for followup for end-stage renal disease. He is maintained on antibiotics for foot wounds. He is status post debridement as well. The patient will be dialyzed today following which he will be discharged. PHYSICAL EXAMINATION: This morning, blood pressure was 160/66, heart rate 71 per minute. He is afebrile. Examination of the heart S1, S2. Examination lungs bilateral breath sounds are heard. Abdomen is soft, nontender. Examination lower extremities shows some 1+ edema with chronic skin changes. Left foot is currently dressed. LABS: Not available from last 2 days. Previous potassium was 4.5 on 05/06/2018. ASSESSMENT: 1. End-stage renal disease, on hemodialysis on a Sunday, Sunday, Sunday schedule. 2. Left diabetic foot infection, status post debridement, maintained on antibiotics. 3. CKD mineral bone disorder. 4. Hypertension. 5. Mild volume overload. PLAN: Increase UF with hemodialysis today. The patient is stable for discharge. Follow up as outpatient. We will continue antibiotics as outpatient. MMODL / IJN: [id number] /
--- NOTE | 2018-05-10 10:27 | P.DS ---
Providers Date of admission: 05/04/18 11:35 Expected date of discharge: 05/08/18 Attending physician: Germain Dowd Consults: 05/04/18 11:28 Consult Physician Stat Consulting Provider: Janette Greenberg Consult Reason/Comments: renal failure Do you want consulting provider notified?: Yes 05/04/18 14:18 Consult Physician Routine Consulting Provider: Whitney Hodges Consult Reason/Comments: Diabetic foot ulcer Do you want consulting provider notified?: Yes 05/04/18 14:19 Consult Physician Routine Consulting Provider: Dawson Griffith Consult Reason/Comments: Diabetic foot ulcer Do you want consulting provider notified?: Yes Primary care physician: Nell Rosen Hospital Course: Discharge diagnosis Left Diabetic foot ulcer status post debridement. Wound culture showed MSSA. End-stage renal disease on hemodialysis Type 2 diabetes mellitus Diabetic nephropathy Diabetic retinopathy Diabetic neuropathy Anemia of chronic disease Hypertension History of Chronic back pain History of Congestive heart failure History of paroxysmal atrial fibrillation History of rheumatoid arthritis and History of bacterial endocarditis History of GERD Hospital course This is a pleasant 67 years old male with past medical history of end-stage renal disease on hemodialysis, congestive heart failure, paroxysmal atrial fibrillation, diabetes mellitus, GERD, hypertension, rheumatoid arthritis , diabetic retinopathy [legally blind] bilateral leg edema, diabetic foot ulcer , bacterial endocarditis, chronic back pain, diabetic nephropathy who presents because of diabetic foot ulcer. 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 Echavarria, and the wound center for his diabetic foot ulcer , he has ulcers on both feet. However the main one was bothering him is at the base of the first metacarpo- pharyngeal joint on the plantar surface, and also sepsis looks surrounded by hard callus and there is some blood oozing from it, no surrounding cellulitis Also patient has ulcers on the lateral side of the fifth metacarpal bone on both feet, which looked chronic On admission vitals are stable, he has mild leukocytosis of 13.1, hemoglobin 10.2. Creatinine 9.4. C-reactive protein 18.9. Left foot x-ray: No evidence of acute osteomyelitis as per radiologist's report. In the emergency room patient got 1 dose of vancomycin and he was started on Zosyn 05/05/2018 Patient feels comfortable. No chest pain or dyspnea. Patient is going for possible debridement of his diabetic ulcer by surgical team today. Nephrology evaluation is appreciated. Patient Has Hemodialysis Tomorrow. Patient with No Chest Pain or Dyspnea. And lung Examination Looks Clear. 05/06/2018 Patient is lying in bed comfortable. He has hemodialysis, going on as i am seeing the patient. he does not seem in distress with no chest pain or dyspnea. No abdominal pain. Patient is going for surgical debridement of his diabetic ulcer today. Infectious disease R following the patient. He is currently on vancomycin and Zosyn.ESR is elevated at 127 05/07/2018 Patient is status post debridement of diabetic foot ulcers. Wound cultures are pending. Currently on antibiotics as per ID. General surgery and ID is following. No fever no chills. No other acute overnight issues. Awaiting final wound cultures. 05/08/2018 Patient denied any new complaints today. Patient underwent hemodialysis today. Wound culture showed MSSA. Patient be discharged home on Keflex as per ID recommendations. Otherwise patient is stable to be discharged home. PHYSICAL EXAMINATION: Patient is lying in the bed comfortably, no acute distress, awake alert and oriented.. HEENT: Normocephalic. Neck is supple. Pupils reactive. Nostrils clear. Oral cavity is moist. Ears reveal no drainage. Neck reveals no JVD, carotid bruits, or thyromegaly. CHEST EXAMINATION: Trachea is central. Symmetrical expansion. Lung albarran clear to auscultation and percussion. CARDIAC: Normal S1, S2 with no gallops. No murmurs ABDOMEN: Soft. Bowel sounds normal. No organomegaly. No abdominal bruits. Extremities: reveal no edema. No clubbing or cyanosis. Left foot ulcer is bandaged. Neurologically awake, alert, oriented x3 with well-coordinated movements. No focal deficits noted Skin: No rash or skin lesions. Psychiatric: Coperative. Nonsuicidal Musculoskeletal: No joint swelling or deformity. Normal range of motion. Vital Signs (72 hours) 05/07/18 05/07/18 05/08/18 14:55 23:30 07:06 Temperature 97.8 F 97.5 F L 97.9 F Pulse Rate [ 68 80 71 Pulse Oximetery ] Respiratory 18 20 18 Rate Blood Pressure 133/60 178/66 160/66 [Right Arm] O2 Sat by Pulse 96 97 96 Oximetry Patient Condition at Discharge: Fair Plan - Discharge Summary New Discharge Prescriptions: New Darbepoetin Dinh [Aranesp] 60 mcg SQ Q7D syringe Cephalexin [Keflex] 500 mg PO Q12HR #20 cap Sevelamer [Renvela] 800 mg PO TID-W/MEALS #90 tab Continue Metoprolol Tartrate [Lopressor] 50 mg PO BID NIFEdipine [NIFEdipine ER] 60 mg PO DAILY Furosemide [Lasix] 40 mg PO BID Etanercept [Enbrel] 50 mg SQ Q7D Insulin Lispro [humaLOG] See Protocol SQ AC-TID Omeprazole 40 mg PO DAILY Clopidogrel Bisulfate [Plavix] 75 mg PO DAILY Insulin Glargine [Lantus] 70 unit SQ HS Discontinued Cephalexin [Keflex] 500 mg PO Q8HR Discharge Medication List Etanercept [Enbrel] 50 mg SQ Q7D 06/12/14 [History] Furosemide [Lasix] 40 mg PO BID 06/12/14 [History] Insulin Lispro [humaLOG] See Protocol SQ AC-TID 06/12/14 [History] Metoprolol Tartrate [Lopressor] 50 mg PO BID 06/12/14 [History] NIFEdipine [NIFEdipine ER] 60 mg PO DAILY 06/12/14 [History] Omeprazole 40 mg PO DAILY 11/29/16 [History] Clopidogrel Bisulfate [Plavix] 75 mg PO DAILY 05/04/18 [History] Insulin Glargine [Lantus] 70 unit SQ HS 05/05/18 [History] Cephalexin [Keflex] 500 mg PO Q12HR #20 cap 05/08/18 [Rx] Darbepoetin Dinh [Aranesp] 60 mcg SQ Q7D syringe 05/08/18 [Rx] Sevelamer [Renvela] 800 mg PO TID-W/MEALS #90 tab 05/08/18 [Rx] Follow up Appointment(s)/Referral(s): Nell Rosen MD [Primary Care Provider] - 05/13/18 11:00 am Whitney Hodges MD [STAFF PHYSICIAN] - 05/14/18 3:00 pm Patient Instructions/Handouts: Diabetic Foot Ulcers (DC) Discharge Disposition: HOME SELF-CARE
== END 2018-05-08 15:39 | disposition home or self-care (01) | DRG 623 ==
LOC: EC 09:57 → 4MS4W 11:35
PROVIDERS: ADMIT Hospitalist; ATTEND Hospitalist
PROC: 5A1D70Z Performance of Urinary Filtration, Intermittent, Less than 6 Hours Per Day (ICD-10-PCS; 2018-05-05)
PROC: 0JBR0ZZ Excision of Left Foot Subcutaneous Tissue and Fascia, Open Approach (ICD-10-PCS; principal; 2018-05-06)
DX: E11.621 Type 2 diabetes mellitus with foot ulcer (principal); I13.2 Hypertensive heart and chronic kidney disease with heart failure and with stage 5 chronic kidney disease, or end stage renal disease; L03.116 Cellulitis of left lower limb; D63.1 Anemia in chronic kidney disease; E11.21 Type 2 diabetes mellitus with diabetic nephropathy; E11.22 Type 2 diabetes mellitus with diabetic chronic kidney disease; E11.319 Type 2 diabetes mellitus with unspecified diabetic retinopathy without macular edema; E11.40 Type 2 diabetes mellitus with diabetic neuropathy, unspecified; E88.89 Other specified metabolic disorders; F32.9 Major depressive disorder, single episode, unspecified; F41.9 Anxiety disorder, unspecified; H54.8 Legal blindness, as defined in USA; I48.0 Paroxysmal atrial fibrillation; I50.9 Heart failure, unspecified; K21.9 Gastro-esophageal reflux disease without esophagitis; L97.519 Non-pressure chronic ulcer of other part of right foot with unspecified severity; L97.529 Non-pressure chronic ulcer of other part of left foot with unspecified severity; M06.9 Rheumatoid arthritis, unspecified; M89.9 Disorder of bone, unspecified; N18.6 End stage renal disease; Z79.02 Long term (current) use of antithrombotics/antiplatelets; Z79.4 Long term (current) use of insulin; Z79.82 Long term (current) use of aspirin; Z79.899 Other long term (current) drug therapy; Z83.3 Family history of diabetes mellitus; Z87.891 Personal history of nicotine dependence; Z91.15 Patient's noncompliance with renal dialysis; Z99.2 Dependence on renal dialysis; Z88.2 Allergy status to sulfonamides
CPT/HCPCS: 36415; 80048; 80202; 83036; 85025; 85652; 86140; 87070; 87075; 87077; 87186; 87205; 90935; 96365; 99284

== ENCOUNTER 2018-07-31 10:42 | Inpatient (IN) | payer MEDICARE ==
[2018-07-31] MEDS ORDERED: IPRATROPIUM-ALBUTEROL 3 ML NEB INHALATION STA (11:34)
--- NOTE | 2018-07-31 11:40 | ED ---
General Adult HPI - General Chief complaint: Shortness of Breath Stated complaint: SOB Time Seen by Provider: 07/31/18 11:13 Source: patient, family, RN notes reviewed Mode of arrival: wheelchair Limitations: physical limitation - History of Present Illness Initial comments: Patient is a pleasant 68-year-old male presenting to the emergency department w ith difficulty in breathing. Onset of symptoms was a couple of days ago. Symptoms have progressively worsened. Patient has orthopnea and exertional dyspnea. Patient has mild leg swelling however that is somewhat chronic. No chest pain. No fevers. No cough. Patient has a distant history of smoking. No calf pain. Patient did have repair of this fistula done several days ago and missed his dialysis Sunday and today. - Related Data Home Medications Medication Instructions Recorded Confirmed Etanercept [Enbrel] 50 mg SQ LUU 06/12/14 07/31/18 Furosemide [Lasix] 20 mg PO DAILY 06/12/14 07/31/18 Insulin Lispro [humaLOG] See Protocol SQ AC-TID PRN 06/12/14 07/31/18 NIFEdipine [NIFEdipine ER] 60 mg PO DAILY 06/12/14 07/31/18 Insulin Glargine [Lantus] 80 unit SQ HS 05/05/18 07/31/18 Aspirin EC [Ecotrin Low Dose] 81 mg PO DAILY 07/31/18 07/31/18 Calcium Carb-Mag Carb-Folic 1 tab PO AC-BRKFST 07/31/18 07/31/18 [Magnebind 400 Rx] Gemfibrozil [Lopid] 600 mg PO DAILY 07/31/18 07/31/18 Omeprazole 20 mg PO DAILY 07/31/18 07/31/18 Vit C/E/Zn/Coppr/Lutein/Zeaxan 1 cap PO BID 07/31/18 07/31/18 [Preservision Areds 2 Softgel] Allergies Allergy/AdvReac Type Severity Reaction Status Date / Time sulfamethoxazole AdvReac Unknown Nausea & Verified 07/31/18 11:13 [From Bactrim] Vomiting trimethoprim [From Bactrim] AdvReac Unknown Nausea & Verified 07/31/18 11:13 Vomiting Review of Systems ROS Statement: Those systems with pertinent positive or pertinent negative responses have been documented in the HPI. ROS Other: All systems not noted in ROS Statement are negative. Constitutional: Denies: fever, chills Eyes: Denies: eye pain ENT: Denies: ear pain Respiratory: Reports: dyspnea. Denies: cough Cardiovascular: Denies: chest pain Endocrine: Reports: fatigue Gastrointestinal: Denies: abdominal pain Genitourinary: Denies: dysuria Musculoskeletal: Denies: back pain Skin: Denies: rash Neurological: Denies: headache Past Medical History Past Medical History: Atrial Fibrillation, Heart Failure, Diabetes Mellitus, Dialysis, Eye Disorder, GERD/Reflux, Hypertension, Osteoarthritis (OA), Renal Disease, Rheumatoid Arthritis (RA) Additional Past Medical History / Comment(s): Chronic kidney failure with hemodialysis ---last hemo was Sunday03/20/16, IDDM type II, diabetic retinopathy-"legally blind", bilateral lower leg edema, cellulitis bilateral lower legs, current L foot ulcer, paroxysmal Afib, 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 History of Any Multi-Drug Resistant Organisms: None Reported Past Surgical History: Hernia Repair, Orthopedic Surgery Additional Past Surgical History / Comment(s): Bilateral cataract surgery, insertion dialysis catheter left arm, PICC line insertion/removed, bilateral inguinal hernina repairs, colonoscopy/polypectomy, R shoulder rotator cuff repair. Past Anesthesia/Blood Transfusion Reactions: No Reported Reaction Additional Past Anesthesia/Blood Transfusion Reaction / Comment(s): Pt received blood in past without reaction. Past Psychological History: Anxiety, Depression Smoking Status: Former smoker Past Alcohol Use History: None Reported Past Drug Use History: None Reported - Past Family History Mother Family Medical History: Diabetes Mellitus Father Family Medical History: Cancer General Exam Limitations: physical limitation General appearance: alert, in no apparent distress Head exam: Present: atraumatic Eye exam: Present: normal appearance, PERRL ENT exam: Present: normal oropharynx Neck exam: Present: normal inspection Respiratory exam: Present: decreased breath sounds Cardiovascular Exam: Present: regular rate, normal rhythm GI/Abdominal exam: Present: soft. Absent: tenderness Extremities exam: Present: pedal edema (+1 bilateral). Absent: calf tenderness Neurological exam: Present: alert Psychiatric exam: Present: normal affect, normal mood Skin exam: Present: normal color Course Vital Signs 07/31/18 07/31/18 07/31/18 10:58 12:34 12:44 Temperature 98.3 F Pulse Rate 59 L 58 L 62 Respiratory 20 Rate Blood Pressure 134/65 O2 Sat by Pulse 98 Oximetry EKG Findings - EKG Comments: EKG Findings:: Sinus bradycardia 58. For screening AV block with [place] of 212. QRS 124. QT 466. QTc 457. Left axis. bundle branch block. Septal Q waves. No acute ST change. Medical Decision Making - Medical Decision Making Patient reevaluated. Patient and family updated. Case was discussed in detail with Dr. Dowd, covering for Dr. Wen, who will admit. Questionable pneumonia on x-ray. Patient will be started with antibiotics. Patient does not meet sepsis criteria. - Lab Data Result diagrams: 07/31/18 11:58 07/31/18 11:58 Lab Results 07/31/18 07/31/18 07/31/18 Range/Units 11:58 11:58 11:58 WBC 5.9 (3.8-10.6) k/uL RBC 2.66 L (4.30-5.90) m/uL Hgb 9.5 L (13.0-17.5) gm/dL Hct 27.5 L (39.0-53.0) % MCV 103.2 H (80.0-100.0) fL MCH 35.9 H (25.0-35.0) pg MCHC 34.8 (31.0-37.0) g/dL RDW 14.7 (11.5-15.5) % Plt Count 171 (150-450) k/uL Neutrophils % 65 % Lymphocytes % 16 % Monocytes % 5 % Eosinophils % 11 % Basophils % 1 % Neutrophils # 3.8 (1.3-7.7) k/uL Lymphocytes # 0.9 L (1.0-4.8) k/uL Monocytes # 0.3 (0-1.0) k/uL Eosinophils # 0.6 (0-0.7) k/uL Basophils # 0.0 (0-0.2) k/uL Macrocytosis Slight PT (9.0-12.0) sec INR (<1.2) APTT (22.0-30.0) sec Sodium 141 (137-145) mmol/L Potassium 5.0 (3.5-5.1) mmol/L Chloride 104 (98-107) mmol/L Carbon Dioxide 22 (22-30) mmol/L Anion Gap 15 mmol/L BUN 95 H (9-20) mg/dL Creatinine 11.17 H* (0.66-1.25) mg/dL Est GFR (CKD-EPI)AfAm 5 (>60 ml/min/1.73 sqM) Est GFR (CKD-EPI)NonAf 4 (>60 ml/min/1.73 sqM) Glucose 93 (74-99) mg/dL Calcium 9.2 (8.4-10.2) mg/dL Phosphorus 4.7 H (2.5-4.5) mg/dL Magnesium 2.4 H (1.6-2.3) mg/dL Total Bilirubin 0.5 (0.2-1.3) mg/dL AST 17 (17-59) U/L ALT 9 L (21-72) U/L Alkaline Phosphatase 109 (38-126) U/L Creatine Kinase 84 (55-170) U/L Troponin I (0.000-0.034) ng/mL NT-Pro-B Natriuret Pep 08822 pg/mL Total Protein 7.1 (6.3-8.2) g/dL Albumin 3.7 (3.5-5.0) g/dL 07/31/18 07/31/18 Range/Units 11:58 11:58 WBC (3.8-10.6) k/uL RBC (4.30-5.90) m/uL Hgb (13.0-17.5) gm/dL Hct (39.0-53.0) % MCV (80.0-100.0) fL MCH (25.0-35.0) pg MCHC (31.0-37.0) g/dL RDW (11.5-15.5) % Plt Count (150-450) k/uL Neutrophils % % Lymphocytes % % Monocytes % % Eosinophils % % Basophils % % Neutrophils # (1.3-7.7) k/uL Lymphocytes # (1.0-4.8) k/uL Monocytes # (0-1.0) k/uL Eosinophils # (0-0.7) k/uL Basophils # (0-0.2) k/uL Macrocytosis PT 10.1 (9.0-12.0) sec INR 0.9 (<1.2) APTT 22.4 (22.0-30.0) sec Sodium (137-145) mmol/L Potassium (3.5-5.1) mmol/L Chloride (98-107) mmol/L Carbon Dioxide (22-30) mmol/L Anion Gap mmol/L BUN (9-20) mg/dL Creatinine (0.66-1.25) mg/dL Est GFR (CKD-EPI)AfAm (>60 ml/min/1.73 sqM) Est GFR (CKD-EPI)NonAf (>60 ml/min/1.73 sqM) Glucose (74-99) mg/dL Calcium (8.4-10.2) mg/dL Phosphorus (2.5-4.5) mg/dL Magnesium (1.6-2.3) mg/dL Total Bilirubin (0.2-1.3) mg/dL AST (17-59) U/L ALT (21-72) U/L Alkaline Phosphatase (38-126) U/L Creatine Kinase (55-170) U/L Troponin I 0.042 H* (0.000-0.034) ng/mL NT-Pro-B Natriuret Pep pg/mL Total Protein (6.3-8.2) g/dL Albumin (3.5-5.0) g/dL - Radiology Data Radiology results: image reviewed (Chest x-ray shows CHF and possible infiltrate. ) Disposition Clinical Impression: Dyspnea, Fluid overload, Renal failure Disposition: ADMITTED IP TO THIS HOSP Is patient prescribed a controlled substance at d/c from ED?: No Referrals: Nell Rosen MD [Primary Care Provider] - 1-2 days Decision Time: 13:36
[2018-07-31 12:11] LABS: Basophils % (A) 1 %; Eosinophils # (A) 0.6 k/uL (0-0.7); Eosinophils % (A) 11 %; HCT 27.5 % (39.0-53.0); HGB 9.5 gm/dL (13.0-17.5); Lymphocytes # (A) 0.9 k/uL (1.0-4.8); Lymphocytes % (A) 16 %; MCH 35.9 pg (25.0-35.0); MCHC 34.8 g/dL (31.0-37.0); MCV 103.2 fL (80.0-100.0); Macrocytosis Slight; Mean Platelet Volume 9.7; Monocytes # (A) 0.3 k/uL (0-1.0); Monocytes % (A) 5 %; Neutrophils # (A) 3.8 k/uL (1.3-7.7); Neutrophils % (A) 65 %; Platelet Count 171 k/uL (150-450); RBC 2.66 m/uL (4.30-5.90); RDW 14.7 % (11.5-15.5); WBC 5.9 k/uL (3.8-10.6)
--- NOTE | 2018-07-31 12:20 | XR ---
EXAMINATION TYPE: XR chest 2V DATE OF EXAM: 07/31/2018 COMPARISON: 12/04/2015 HISTORY: Shortness of breath TECHNIQUE: Frontal and lateral views of the chest are obtained. FINDINGS: Scattered senescent parenchymal changes noted. Hyperinflation compatible with COPD. Right perihilar patchy density may reflect underlying infiltrate. Heart size is stable. Mediastinal structures are stable and grossly unremarkable. No evidence for hilar prominence. Degenerative changes dorsal spine. IMPRESSION: 1. Right perihilar patchy density may reflect underlying infiltrate.
[2018-07-31 12:33] LABS: Albumin 3.7 g/dL (3.5-5.0); Calcium 9.2 mg/dL (8.4-10.2); Magnesium 2.4 mg/dL (1.6-2.3); Phosphorus 4.7 mg/dL (2.5-4.5); Total Bilirubin 0.5 mg/dL (0.2-1.3); Total Protein 7.1 g/dL (6.3-8.2)
[2018-07-31 12:34] LABS: INR 0.9 (<1.2); Partial Thromboplastin Time 22.4 sec (22.0-30.0); Prothrombin Time 10.1 sec (9.0-12.0)
[2018-07-31] MEDS ORDERED: AZITHROMYCIN 500 MG in SODIUM CHLORIDE 0.9% 250 ML IVPB STA (13:37)
[2018-07-31] MEDS ORDERED: PNEUMONIA PROTOCOL UTILIZED 1 EACH MISC PO PRN (13:37)
[2018-07-31] MEDS ORDERED: FUROSEMIDE 10 MG/ML 4 ML VIAL IV STA (13:41)
--- NOTE | 2018-07-31 14:21 | P.NPCON ---
History of Present Illness - Reason for Consult end stage renal disease - History of Present Illness Reason for consultation: End-stage renal disease History of present illness: Patient is a 68-year-old male seen in renal consultation for end-stage renal disease. Patient was seen in the emergency room. He is maintained on hemodialysis on a Sunday schedule for a left upper extremity AV fistula. Patient's last hemodialysis was on Sunday. Sunday he went to [facility] and had intervention done by his vascular surgeon on his AV fistula. He was discharged the same day. Subsequently he developed shortness of breath. Patient states he missed dialysis on Sunday as his fistula site.. He denies checking his temperature at home. No cough. He does not have a white count. Vital signs are stable. No vomiting or diarrhea. No abdominal pain. He does have edema in his lower extremities. BNP was noted to be elevated at 19,400. Vital signs are stable. General: The patient appeared well nourished and normally developed. HEENT: Head exam is unremarkable. Neck is without jugular venous distension. LUNGS: Breath sounds decreased. HEART: Rate and Rhythm are regular. First and second heart sounds normal. No murmurs, rubs or gallops. ABDOMEN: Abdominal exam reveals normal bowel sounds. Non-tender and non- distended. No evidence of peritonitis. EXTREMITITES: 1+ edema. 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 History of Any Multi-Drug Resistant Organisms: None Reported Past Surgical History: Hernia Repair, Orthopedic Surgery Additional Past Surgical History / Comment(s): Bilateral cataract surgery, insertion dialysis catheter left arm, PICC line insertion/removed, bilateral inguinal hernina repairs, colonoscopy/polypectomy, R shoulder rotator cuff repair. Past Anesthesia/Blood Transfusion Reactions: No Reported Reaction Additional Past Anesthesia/Blood Transfusion Reaction / Comment(s): Pt received blood in past without reaction. Past Psychological History: Anxiety, Depression Smoking Status: Former smoker Past Alcohol Use History: None Reported Past Drug Use History: None Reported - Past Family History Mother Family Medical History: Diabetes Mellitus Father Family Medical History: Cancer Medications and Allergies Home Medications Medication Instructions Recorded Confirmed Type Etanercept [Enbrel] 50 mg SQ LUU 06/12/14 07/31/18 History Furosemide [Lasix] 20 mg PO DAILY 06/12/14 07/31/18 History Insulin Lispro [humaLOG] See Protocol SQ AC-TID PRN 06/12/14 07/31/18 History NIFEdipine [NIFEdipine ER] 60 mg PO DAILY 06/12/14 07/31/18 History Insulin Glargine [Lantus] 80 unit SQ HS 05/05/18 07/31/18 History Aspirin EC [Ecotrin Low Dose] 81 mg PO DAILY 07/31/18 07/31/18 History Calcium Carb-Mag Carb-Folic 1 tab PO AC-BRKFST 07/31/18 07/31/18 History [Magnebind 400 Rx] Gemfibrozil [Lopid] 600 mg PO DAILY 07/31/18 07/31/18 History Omeprazole 20 mg PO DAILY 07/31/18 07/31/18 History Vit C/E/Zn/Coppr/Lutein/Zeaxan 1 cap PO BID 07/31/18 07/31/18 History [Preservision Areds 2 Softgel] Allergies Allergy/AdvReac Type Severity Reaction Status Date / Time sulfamethoxazole AdvReac Unknown Nausea & Verified 07/31/18 11:13 [From Bactrim] Vomiting trimethoprim [From Bactrim] AdvReac Unknown Nausea & Verified 07/31/18 11:13 Vomiting Physical Exam Vitals: Vital Signs Temp Pulse Resp BP Pulse Ox 07/31/18 12:44 62 07/31/18 12:34 58 L 07/31/18 10:58 98.3 F 59 L 20 134/65 98 Intake and Output 07/30/18 07/31/18 07/31/18 22:59 06:59 14:59 Other: Weight 120.656 kg Results - Lab Results Most recent lab results Calcium 9.2 mg/dL (8.4-10.2) 07/31/18 11:58 Phosphorus 4.7 mg/dL (2.5-4.5) H 07/31/18 11:58 Magnesium 2.4 mg/dL (1.6-2.3) H 07/31/18 11:58 07/31/18 11:58 07/31/18 11:58 Assessment and Plan Plan: Assessment: 1. End-stage renal disease maintained on hemodialysis on a Sunday schedule via left upper extremity AV fistula. 2. Dyspnea secondary to fluid overload as well as questionable pneumonia. 3. Hypertension with chronic kidney disease. Controlled. 4. Volume overload. 5. Insulin-dependent diabetes mellitus. 6. Chronic kidney disease mineral bone disease. 7. Anemia of chronic kidney disease. Rule out iron deficiency. Plan: Hemodialysis today with goal 3-4 L ultrafiltration. Resume phosphate binders. Check iron studies. Follow-up cultures and morning chest x-ray. Thank you for the consultation. I will continue to follow patient with you during his hospital stay.
[2018-07-31] MEDS ORDERED: HYDROcodone/APAP 5-325MG 1 EACH TAB PO PRN (17:10)
[2018-07-31] MEDS ORDERED: HYDROmorphone 0.5 MG/0.5 ML SYRINGE IVP PRN (17:10)
[2018-07-31] MEDS: INSULIN ASPART (NovoLOG) 100 UNIT/ML VIAL SQ SCH ×2 (17:45→22:27)
[2018-07-31 18:12] LABS: Glucose,Whole Blood 204 mg/dL (75-99)
[2018-07-31] MEDS: CALCIUM CARB-MAG CARB-FOLIC 1 EACH TAB PO SCH (18:59)
[2018-07-31 19:19] LABS: Iron Saturation 27.6 (15.00-50.00)
--- NOTE | 2018-07-31 19:57 | HP ---
HISTORY AND PHYSICAL DATE OF SERVICE: 07/31/2018 CHIEF COMPLAINT: Shortness of breath and cough. HISTORY OF PRESENT ILLNESS: This 68-year-old gentleman with a past medical history of multiple medical problems, including history of atrial fibrillation, asthma, CHF, diabetes mellitus, type 2, GERD, hypertension, DJD, history of pneumonia, history of rheumatoid arthritis, history of seizure disorder, being followed by Dr. Rosen in the outpatient setting, is on hemodialysis Sunday, Sunday, Sunday. Last hemodialysis was Sunday. Subsequently patient had a procedure for the graft on the left arm. Because of pain, the patient apparently missed one dialysis, and the patient came to [facility] with complaints of shortness of breath and cough. The patient had features of CHF as well as possible right lower lobe pneumonia. Patient was admitted for further evaluation and treatment. There is no history of any fever, rigor or chills. No history of headache, loss of consciousness, seizures at this time. The patient recently had a procedure done on the left arm fistula at [facility]. PAST MEDICAL HISTORY: 1. History of atrial fibrillation. 2. History of asthma. 3. History of CHF. 4. Diabetes mellitus, type 2. 5. History of dialysis. 6. History of GERD. 7. Hypertension. 8. History of DJD. 9. History of pneumonia. 10.History of rheumatoid arthritis. 11.Seizure disorder. 12.ESRD. HOME MEDICATIONS: 1. Vitamin C. 2. Zinc 1 capsule p.o. b.i.d. 3. Omeprazole 20 mg p.o. daily. 4. Nifedipine ER 60 mg p.o. daily. 5. Humalog scale. 6. Lantus 8 units subcutaneously at bedtime. 7. Lopid 600 mg p.o. daily. 8. Lasix 20 mg p.o. daily. 9. Enbrel 50 mg subcutaneously. 10.Magnebind 400 mg 1 tablet before breakfast. 11.Ecotrin 81 mg p.o. daily. ALLERGIES: BACTRIM. FAMILY HISTORY: History of metastatic cancer. SOCIAL HISTORY: History of smoking. No current smoking or alcohol intake. REVIEW OF SYSTEMS: ENT: No diminished hearing. No diminished vision. CARDIOVASCULAR SYSTEM: As mentioned earlier. RESPIRATORY SYSTEM: As mentioned earlier. GI: No nausea, vomiting. : As mentioned earlier. NERVOUS SYSTEM: No numbness, weakness. ALLERGY/IMMUNOLOGY: No asthma, hayfever. MUSCULOSKELETAL: As mentioned earlier. HEMATOLOGY/ONCOLOGY: As mentioned earlier. ENDOCRINE: Diabetes mellitus. CONSTITUTIONAL: As mentioned earlier. DERMATOLOGY: Negative. RHEUMATOLOGY: Negative. PSYCHIATRY: As mentioned earlier. PHYSICAL EXAMINATION: Patient alert and oriented x3. Pulse 60, blood pressure 136/72, respiration 19, temperature normal, pulse ox 94% on room air. HEENT: Conjunctivae normal. Oral mucosa moist. NECK: No jugular venous distention. No carotid bruit. No lymph node enlargement. CARDIOVASCULAR SYSTEM: S1, S2 muffled. Ejection systolic murmur. RESPIRATORY SYSTEM: Breath sounds diminished at the bases. A few scattered rhonchi and crackles, especially heard bilaterally posteriorly and inspiratory crackles. No pleural rub. ABDOMEN: Soft, non-tender. No mass palpable. LEGS: Minimal edema. Foot ulcer present. NERVOUS SYSTEM: Higher functions as mentioned earlier. Moves all 4 limbs. No focal motor or sensory deficit. LYMPHATICS: No lymph node palpable in neck, axillae or groin. SKIN: No ulcer, rash, bleeding. JOINTS: No active deforming arthropathy. LABS: WBC 5.9, hemoglobin 10.5, creatinine 11.17. Troponin 0.042. ASSESSMENT: 1. Congestive heart failure, acute exacerbation, with possibly acute on chronic diastolic dysfunction, ejection fraction 50% to 60% on previous 2D echo. 2. Right lower lobe pneumonia, possibly gram-negative. 3. Noncompliance with hemodialysis. 4. End-stage renal disease, on hemodialysis. 5. Left forearm fistula and recent procedure at [facility]. 6. Left diabetic foot ulcer. 7. Anemia of chronic disease. 8. Macrocytosis. 9. Troponin 0.042, indeterminate. 10.History of atrial fibrillation. 11.History of asthma. 12.History of gastroesophageal reflux disease. 13.Hypertension. 14.History of degenerative joint disease. 15.Pneumonia. 16.History of rheumatoid arthritis. 17.Seizure disorder. 18.History of endocarditis with vegetation on the mitral valve. 19.Degenerative joint disease. 20.History of hernia repair. 21.Anxiety, depression. RECOMMENDATIONS AND DISCUSSION: In this 68-year-old gentleman who presented with multiple medical issues, at this time I recommend to continue current management, continue symptomatic treatment. Will initiate broad-spectrum antibiotics for pneumonia, IV antibiotics. Otherwise, urgent hemodialysis. Nephrology evaluation. Resume the home medications. The importance of compliance was stressed with the patient. Will continue to monitor. Prognosis guarded because of multiple complex medical issues. Monitor blood sugars closely. Further recommendations to follow. A copy of this dictation is being forwarded to Dr. Rosen, who is the primary physician. MMODL / IJN: [id number] /
[2018-07-31 20:25] LABS: Glucose,Whole Blood 241 mg/dL (75-99)
[2018-07-31] MEDS: IPRATROPIUM-ALBUTEROL 3 ML NEB INHALATION SCH (20:28)
[2018-07-31] MEDS: VIT A,C & E-LUTEIN-MINERALS 1 EACH TAB PO SCH (22:27)
[2018-07-31] MEDS: INSULIN DETEMIR (LEVEMIR) 100 UNIT/ML SYR SQ SCH (22:27)
[2018-07-31] MEDS: HEPARIN SODIUM,PORCINE 5,000 UNIT/ML 1 ML VIAL SQ SCH (22:27)
[2018-08-01 06:29] LABS: Glucose,Whole Blood 216 mg/dL (75-99)
[2018-08-01] MEDS: PANTOPRAZOLE 40 MG TABLET PO SCH (06:52)
[2018-08-01] MEDS: CALCIUM CARB-MAG CARB-FOLIC 1 EACH TAB PO SCH ×2 (06:52→17:13)
[2018-08-01] MEDS: INSULIN ASPART (NovoLOG) 100 UNIT/ML VIAL SQ SCH ×4 (06:53→20:58)
[2018-08-01 07:18] LABS: Basophils % (A) 1 %; Eosinophils # (A) 0.5 k/uL (0-0.7); Eosinophils % (A) 9 %; HCT 29.3 % (39.0-53.0); HGB 9.5 gm/dL (13.0-17.5); Lymphocytes % (A) 18 %; MCH 34.4 pg (25.0-35.0); MCHC 32.4 g/dL (31.0-37.0); MCV 106.2 fL (80.0-100.0); Macrocytosis Moderate; Mean Platelet Volume 8.4; Monocytes # (A) 0.2 k/uL (0-1.0); Monocytes % (A) 4 %; Neutrophils # (A) 3.7 k/uL (1.3-7.7); Neutrophils % (A) 67 %; Platelet Count 180 k/uL (150-450); RBC 2.76 m/uL (4.30-5.90); RDW 14.3 % (11.5-15.5); WBC 5.6 k/uL (3.8-10.6)
[2018-08-01 07:26] LABS: Calcium 9.1 mg/dL (8.4-10.2); Potassium 4.7 mmol/L (3.5-5.1)
[2018-08-01] MEDS ORDERED: CALCIUM CARB-MAG CARB-FOLIC 1 EACH TAB PO SCH (07:30)
[2018-08-01] MEDS: IPRATROPIUM-ALBUTEROL 3 ML NEB INHALATION SCH ×3 (08:24→20:23)
[2018-08-01] MEDS ORDERED: NON-FORMULARY DRUG (Omeprazole [Omeprazole] 20 MG) PO SCH (09:00)
[2018-08-01] MEDS: FUROSEMIDE 20 MG TAB PO SCH (09:10)
[2018-08-01] MEDS: HEPARIN SODIUM,PORCINE 5,000 UNIT/ML 1 ML VIAL SQ SCH ×2 (09:10→20:58)
[2018-08-01] MEDS: VIT A,C & E-LUTEIN-MINERALS 1 EACH TAB PO SCH ×2 (09:10→20:59)
[2018-08-01] MEDS: ASPIRIN 81 MG PO SCH (09:10)
[2018-08-01] MEDS: FENOFIBRATE 160 MG TAB PO SCH (09:11)
--- NOTE | 2018-08-01 09:40 | XR ---
EXAMINATION TYPE: XR chest 2V DATE OF EXAM: 08/01/2018 COMPARISON: Prior chest x-ray 07/31/2018 HISTORY: Pneumonia TECHNIQUE: Frontal and lateral views of the chest are obtained. FINDINGS: Findings are similar to prior exam, increased density at the posterior costophrenic angle is again noted. Prominent lung volume is compatible with underlying COPD. There is minimal patchy den sity at the posterior costophrenic angle level. Heart size is stable. No evident pneumothorax. There are overlying cardiac leads. Patient is rotated. IMPRESSION: Correlate for lower lobe pneumonia.
[2018-08-01 11:29] VITALS: BMI 34.7
[2018-08-01 11:36] LABS: Glucose,Whole Blood 178 mg/dL (75-99)
[2018-08-01] MEDS: AZITHROMYCIN 500 MG TAB PO SCH (11:48)
--- NOTE | 2018-08-01 12:54 | P.PN ---
Subjective Patient is seen in follow-up for end-stage renal disease. He is maintained on hemodialysis on a Sunday schedule. Dyspnea is much improved. He tolerated hemodialysis well yesterday with4 L ultrafiltration. He had missed 2 treatments of hemodialysis prior to admission. He is currently on antibiotics for pneumonia. Oral intake is good. Hemodynamically stable. Vital signs are stable. General: The patient appeared well nourished and normally developed. HEENT: Head exam is unremarkable. Neck is without jugular venous distension. LUNGS: Lungs are clear to auscultation and percussion. Breath sounds decreased. HEART: Rate and Rhythm are regular. First and second heart sounds normal. No murmurs, rubs or gallops. ABDOMEN: Abdominal exam reveals normal bowel sounds. Non-tender and non- distended. No evidence of peritonitis. EXTREMITITES: No clubbing, cyanosis, or edema. Objective - Vital Signs Vital signs: Vital Signs Temp 98.2 F 08/01/18 08:00 Pulse 68 08/01/18 08:34 Resp 18 08/01/18 08:00 BP 138/73 08/01/18 08:00 Pulse Ox 98 08/01/18 08:00 Intake & Output 07/31/18 08/01/18 08/01/18 18:59 06:59 18:59 Intake Total 872 934 7204 Output Total 4000 Balance 240 -3700 1040 Weight 120.656 kg 122.8 kg 122.8 kg Intake: Oral 240 1040 Hemodialysis 300 Output: Hemodialysis 4000 Other: # Voids 1 - Labs CBC & Chem 7: 08/01/18 06:41 08/01/18 06:41 Labs: Abnormal Lab Results - Last 24 Hours (Table) 07/31/18 07/31/18 07/31/18 Range/Units 11:58 11:58 17:37 RBC (4.30-5.90) m/uL Hgb (13.0-17.5) gm/dL Hct (39.0-53.0) % MCV (80.0-100.0) fL BUN (9-20) mg/dL Creatinine (0.66-1.25) mg/dL Glucose (74-99) mg/dL POC Glucose (mg/dL) 204 H (75-99) mg/dL Ferritin 1400.2 H (22.0-322.0) ng/mL Troponin I 0.042 H* (0.000-0.034) ng/mL 07/31/18 08/01/18 08/01/18 Range/Units 20:23 06:28 06:41 RBC 2.76 L (4.30-5.90) m/uL Hgb 9.5 L (13.0-17.5) gm/dL Hct 29.3 L (39.0-53.0) % MCV 106.2 H (80.0-100.0) fL BUN (9-20) mg/dL Creatinine (0.66-1.25) mg/dL Glucose (74-99) mg/dL POC Glucose (mg/dL) 241 H 216 H (75-99) mg/dL Ferritin (22.0-322.0) ng/mL Troponin I (0.000-0.034) ng/mL 08/01/18 08/01/18 Range/Units 06:41 11:35 RBC (4.30-5.90) m/uL Hgb (13.0-17.5) gm/dL Hct (39.0-53.0) % MCV (80.0-100.0) fL BUN 61 H (9-20) mg/dL Creatinine 8.07 H* (0.66-1.25) mg/dL Glucose 206 H (74-99) mg/dL POC Glucose (mg/dL) 178 H (75-99) mg/dL Ferritin (22.0-322.0) ng/mL Troponin I (0.000-0.034) ng/mL Assessment and Plan Plan: Assessment: 1. End-stage renal disease maintained on hemodialysis on a Sunday schedule via left upper extremity AV fistula. 2. Dyspnea secondary to fluid overload as well as pneumonia. Improved. 3. Hypertension with chronic kidney disease. Controlled. 4. Volume overload. 5. Insulin-dependent diabetes mellitus. 6. Chronic kidney disease mineral bone disease maintained on magnabind. 7. Anemia of chronic kidney disease. Iron replete. Plan: Hemodialysis tomorrow with goal 3 L ultrafiltration. Add Aranesp.
[2018-08-01 12:55] LABS: Hepatitis B Surface AB- Quant 19.4 mIU/mL
[2018-08-01] MEDS ORDERED: DARBEPOETIN ALFA 40 MCG/0.4 ML SYRINGE SQ SCH (13:00)
[2018-08-01 16:10] LABS: Glucose,Whole Blood 290 mg/dL (75-99)
--- NOTE | 2018-08-01 19:36 | PN ---
PROGRESS NOTE DATE OF SERVICE: 08/01/2018 This 68-year-old gentleman who was admitted with CHF acute exacerbation also suspected pneumonia also. The most recent chest x-ray done today which is personally reviewed by me showed some improvement in the the lung lesions. The patient also better. Patient received urgent hemodialysis. The patient apparently was noncompliant with hemodialysis as mentioned earlier. PAST MEDICAL HISTORY: Reviewed. REVIEW OF SYSTEMS: CARDIOVASCULAR SYSTEM: No angina or palpitations. RESPIRATORY: As mentioned earlier. GI no nausea or vomiting. as mentioned earlier. CURRENT MEDICATIONS ARE: 1. [place] 5 mg q.6h p.r.n. 2. DuoNeb q.i.d. and p.r.n. 3. Aspirin 81 mg. 4. Zithromax 500 mg. 5. MagneBind 400 mg. 6. Rocephin 1 g daily. 7. Ancef. 8. Lo-fibra. 9. Lasix. 10.Dilaudid. 11.Levemir. 12.I-Fady. 13.Procardia. 14.Protonix. PHYSICAL EXAM: GENERAL: Patient is alert, oriented times three. VITAL SIGNS: Pulse 67, blood pressure 155/60, respirations 18, temperature 97.8, pulse ox 94% on room air. HEENT: Conjunctivae normal. NECK: No jugular venous distention. CARDIOVASCULAR: S1, S2 muffled. RESPIRATORY: Breath sounds diminished in the bases. Bilateral scattered rhonchi and crackles. Expiratory wheezing also present. ABDOMEN: Soft, nontender. No mass palpable. LEGS: No edema. No swelling. CENTRAL NERVOUS SYSTEM: No focal deficits. LABS: WBC 5.2, hemoglobin 9.5, sodium 140, potassium 4.7. ASSESSMENT: 1. Congestive heart failure acute exacerbation with possible acute on chronic diastolic dysfunction ejection fraction 50-60 percent on the previous 2D echo. 2. Right lower lobe pneumonia possibly gram-negative, improving. 3. Noncompliance with hemodialysis. 4. End-stage renal disease on hemodialysis. 5. Left forearm fistula with recent procedure at [facility]. 6. Left diabetic foot ulcer. 7. Anemia of chronic disease. 8. Macrocytosis. 9. Troponin 0.042, indeterminate. 10.History of atrial fibrillation. 11.History of asthma. 12.History of gastroesophageal reflux disease. 13.History of hypertension. 14.History of degenerative joint disease. 15.History of pneumonia. 16.History of rheumatoid arthritis. 17.Seizure disorder. 18.History of endocarditis with vegetation on the mitral valve previously. 19.Degenerative joint disease. 20.History of hernia repair. 21.History of anxiety, depression. RECOMMENDATIONS AND DISCUSSION: Recommend to continue current medications, continue with monitoring, management and symptomatic treatment. Otherwise continue the antibiotics. Continue the rest of medications and hemodialysis. Prognosis guarded because of multiple complex medical issues. The cultures are negative so far. Further recommendations to follow. MMODL / IJN: [id number] / FELIPE
[2018-08-01 20:44] LABS: Glucose,Whole Blood 264 mg/dL (75-99)
[2018-08-01] MEDS: INSULIN DETEMIR (LEVEMIR) 100 UNIT/ML SYR SQ SCH (20:58)
[2018-08-02 05:34] LABS: Glucose,Whole Blood 182 mg/dL (75-99)
[2018-08-02] MEDS: CALCIUM CARB-MAG CARB-FOLIC 1 EACH TAB PO SCH (06:58)
[2018-08-02] MEDS: PANTOPRAZOLE 40 MG TABLET PO SCH (06:58)
[2018-08-02] MEDS: INSULIN ASPART (NovoLOG) 100 UNIT/ML VIAL SQ SCH ×2 (06:58→12:45)
[2018-08-02 07:07] LABS: Calcium 8.8 mg/dL (8.4-10.2); Potassium 4.8 mmol/L (3.5-5.1)
[2018-08-02 07:11] LABS: Basophils # (A) 0.1 k/uL (0-0.2); Basophils % (A) 1 %; Eosinophils # (A) 0.6 k/uL (0-0.7); Eosinophils % (A) 11 %; HCT 28.6 % (39.0-53.0); HGB 9.3 gm/dL (13.0-17.5); Lymphocytes # (A) 1.2 k/uL (1.0-4.8); Lymphocytes % (A) 22 %; MCH 34.9 pg (25.0-35.0); MCHC 32.5 g/dL (31.0-37.0); MCV 107.4 fL (80.0-100.0); Macrocytosis Moderate; Mean Platelet Volume 8.5; Monocytes # (A) 0.4 k/uL (0-1.0); Monocytes % (A) 8 %; Neutrophils # (A) 3.2 k/uL (1.3-7.7); Neutrophils % (A) 56 %; Platelet Count 208 k/uL (150-450); RBC 2.67 m/uL (4.30-5.90); RDW 15.2 % (11.5-15.5); WBC 5.6 k/uL (3.8-10.6)
[2018-08-02] MEDS: IPRATROPIUM-ALBUTEROL 3 ML NEB INHALATION SCH ×2 (08:13→13:59)
[2018-08-02] MEDS: ASPIRIN 81 MG PO SCH (09:34)
[2018-08-02] MEDS: HEPARIN SODIUM,PORCINE 5,000 UNIT/ML 1 ML VIAL SQ SCH (09:34)
[2018-08-02] MEDS: FENOFIBRATE 160 MG TAB PO SCH (09:34)
[2018-08-02 11:25] LABS: Glucose,Whole Blood 151 mg/dL (75-99)
[2018-08-02] MEDS: AZITHROMYCIN 500 MG TAB PO SCH (11:29)
[2018-08-02] MEDS: FUROSEMIDE 20 MG TAB PO SCH (11:29)
[2018-08-02] MEDS: VIT A,C & E-LUTEIN-MINERALS 1 EACH TAB PO SCH (11:29)
[2018-08-02 13:20] VITALS: BP 146/69; PULSE 76; RESP 18; TEMP 97.8
--- NOTE | 2018-08-02 13:40 | P.DS ---
Providers Date of admission: 07/31/18 13:37 Expected date of discharge: 08/02/18 Attending physician: Germain Dowd Consults: 07/31/18 13:37 Consult Physician Routine Consulting Provider: Janette Greenberg Consult Reason/Comments: Dialysis Do you want consulting provider notified?: Yes Primary care physician: [facility] Course: Patient is a pleasant 68-year-old male presenting to the emergency department with difficulty in breathing. Onset of symptoms was a couple of days ago. Symptoms have progressively worsened. Patient has orthopnea and exertional dyspnea. Patient has mild leg swelling however that is somewhat chronic. No chest pain. No fevers. No cough. Patient has a distant history of smoking. No calf pain. Patient did have repair of this fistula done several days ago and missed his dialysis Sunday and today. patient admitted to hospital with Dyspnea, Fluid overload, Renal failure and RLL PNA. Patient was started on IV ceftriaxone and Zithromax; patient underwent hemodialysis successfully without any complications; his fluid balance and respiratory status improved; patient is planned to be discharged home with a plan to continue oral antibiotics in the form of Zithromax 500 mg daily for 7 days and follow-up with PCP Plan - Discharge Summary Discharge Rx Participant: No New Discharge Prescriptions: New Azithromycin [Zithromax] 500 mg PO DAILY@1200 #7 tab Continue NIFEdipine [NIFEdipine ER] 60 mg PO DAILY Furosemide [Lasix] 20 mg PO DAILY Etanercept [Enbrel] 50 mg SQ LUU Insulin Lispro [humaLOG] See Protocol SQ AC-TID PRN PRN Reason: Blood Sugar - High Insulin Glargine [Lantus] 80 unit SQ HS Omeprazole 20 mg PO DAILY Gemfibrozil [Lopid] 600 mg PO DAILY Calcium Carb-Mag Carb-Folic [Magnebind 400] 1 tab PO AC-BRKFST Aspirin EC [Ecotrin Low Dose] 81 mg PO DAILY Vit C/E/Zn/Coppr/Lutein/Zeaxan [Preservision Areds 2 Softgel] 1 cap PO BID Discharge Medication List Etanercept [Enbrel] 50 mg SQ LUU 06/12/14 [History] Furosemide [Lasix] 20 mg PO DAILY 06/12/14 [History] Insulin Lispro [humaLOG] See Protocol SQ AC-TID PRN 06/12/14 [History] NIFEdipine [NIFEdipine ER] 60 mg PO DAILY 06/12/14 [History] Insulin Glargine [Lantus] 80 unit SQ HS 05/05/18 [History] Aspirin EC [Ecotrin Low Dose] 81 mg PO DAILY 07/31/18 [History] Calcium Carb-Mag Carb-Folic [Magnebind 400] 1 tab PO AC-BRKFST 07/31/18 [History] Gemfibrozil [Lopid] 600 mg PO DAILY 07/31/18 [History] Omeprazole 20 mg PO DAILY 07/31/18 [History] Vit C/E/Zn/Coppr/Lutein/Zeaxan [Preservision Areds 2 Softgel] 1 cap PO BID 07/31/18 [History] Azithromycin [Zithromax] 500 mg PO DAILY@1200 #7 tab 08/02/18 [Rx] Follow up Appointment(s)/Referral(s): Nell Rosen MD [Primary Care Provider] - 1-2 days Patient Instructions/Handouts: Pneumonia (DC) Discharge Disposition: HOME SELF-CARE
[2018-08-02] MEDS ORDERED: INSULIN DETEMIR (LEVEMIR) 100 UNIT/ML SYR SQ SCH (21:00)
--- NOTE | 2018-08-02 21:30 | PN ---
PROGRESS NOTE The patient is seen for followup for end-stage renal disease. He is currently seen on hemodialysis. He is tolerating his treatment well. He will be discharged post dialysis. PHYSICAL EXAMINATION: VITAL SIGNS: This morning, blood pressure was 130/66, heart rate 80 per minute. He is afebrile. CARDIOVASCULAR: Examination of the heart S1, S2. LUNGS: Examination of the lungs, decreased breath sounds at bases. ABDOMEN is soft, nontender. EXTREMITIES: Exam of lower extremities shows edema 2+ bilaterally. QUALITY ASSURANCE ASSESSOR exam is grossly intact. LABS SHOW: Sodium 140, potassium 4.8, hemoglobin 9.3 g/dL. ASSESSMENT: 1. End-stage renal disease, on hemodialysis on a Sunday, Sunday, Sunday schedule. 2. Fluid overload currently improved. 3. Lower extremity ulcer. Expect further improvement with improved volume status and improved edema. 4. Hypertension, partly volume sensitive, now improved. 5. CKD mineral bone disorder. PLAN: Follow up as outpatient for hemodialysis and increase UF and add extra treatments as outpatient to avoid readmission for volume overload. MMODL / IJN: [id number] /
[2018-08-04] MEDS ORDERED: NON-FORMULARY DRUG (Etanercept [Enbrel] 50 MG) SQ SCH (09:00)
== END 2018-08-02 14:26 | disposition home or self-care (01) | DRG 177 ==
LOC: EC 10:42 → 3SCARD 13:37
PROVIDERS: ADMIT Hospitalist; ATTEND Hospitalist
PROC: 5A1D70Z Performance of Urinary Filtration, Intermittent, Less than 6 Hours Per Day (ICD-10-PCS; principal; 2018-07-31)
DX: J15.6 Pneumonia due to other Gram-negative bacteria (principal); I50.33 Acute on chronic diastolic (congestive) heart failure; N18.6 End stage renal disease; I13.2 Hypertensive heart and chronic kidney disease with heart failure and with stage 5 chronic kidney disease, or end stage renal disease; D63.1 Anemia in chronic kidney disease; D75.89 Other specified diseases of blood and blood-forming organs; E11.22 Type 2 diabetes mellitus with diabetic chronic kidney disease; E11.319 Type 2 diabetes mellitus with unspecified diabetic retinopathy without macular edema; E11.621 Type 2 diabetes mellitus with foot ulcer; F32.9 Major depressive disorder, single episode, unspecified; F41.9 Anxiety disorder, unspecified; G40.909 Epilepsy, unspecified, not intractable, without status epilepticus; H54.8 Legal blindness, as defined in USA; I48.0 Paroxysmal atrial fibrillation; Z99.2 Dependence on renal dialysis; J45.909 Unspecified asthma, uncomplicated; K21.9 Gastro-esophageal reflux disease without esophagitis; L97.529 Non-pressure chronic ulcer of other part of left foot with unspecified severity; M06.9 Rheumatoid arthritis, unspecified; M19.90 Unspecified osteoarthritis, unspecified site; M89.9 Disorder of bone, unspecified; Z79.4 Long term (current) use of insulin; Z79.82 Long term (current) use of aspirin; Z79.899 Other long term (current) drug therapy; Z83.3 Family history of diabetes mellitus; Z86.79 Personal history of other diseases of the circulatory system; Z87.01 Personal history of pneumonia (recurrent); Z87.891 Personal history of nicotine dependence; Z91.15 Patient's noncompliance with renal dialysis; Z88.2 Allergy status to sulfonamides; E11.40 Type 2 diabetes mellitus with diabetic neuropathy, unspecified; Z98.42 Cataract extraction status, left eye; Z98.41 Cataract extraction status, right eye
CPT/HCPCS: 36415; 71046; 80048; 80053; 82550; 82728; 83540; 83550; 83605; 83735; 83880; 84100; 84484; 85025; 85610; 85730; 86704; 86706; 87040; 87340; 90935; 93005; 94640; 94760; 96365; 96366; 96367; 96375; 99285

== ENCOUNTER 2018-10-22 03:20 | Emergency (ER) | payer MEDICARE ==
[2018-10-22 03:30] VITALS: TEMP 98.4
[2018-10-22 03:47] LABS: Glucose,Whole Blood 52 mg/dL (75-99)
--- NOTE | 2018-10-22 04:24 | ED ---
General Adult HPI - General Chief complaint: Shortness of Breath Stated complaint: Diff Breathing Time Seen by Provider: 10/22/18 04:16 Source: patient Mode of arrival: wheelchair Limitations: no limitations - History of Present Illness Initial comments: On is a 68-year-old gentleman with extensive past medical history most significant for end-stage renal disease on dialysis Sunday as well as insulin-dependent diabetes. Patient presented to the emergency department today with very vague complaint. Patient states that throughout the night he just didn't feel right, make it comfortable felt too agitated to sleep but that was because he couldn't breathe. He tried taking albuterol which made his heart race but didn't improve his symptoms at which time his decided to bring him to the ER for evaluation. On arrival to the emergency department the patient reported feeling very weak use noted be very sweaty his blood glucose was checked and was noted that his glucose was in the 40s. On further questioning patient does report that he did not check his blood glucose prior to taking his Lantus last night. - Related Data Home Medications Medication Instructions Recorded Confirmed Etanercept [Enbrel] 50 mg SQ LUU 06/12/14 07/31/18 Furosemide [Lasix] 20 mg PO DAILY 06/12/14 07/31/18 Insulin Lispro [humaLOG] See Protocol SQ AC-TID PRN 06/12/14 07/31/18 NIFEdipine [NIFEdipine ER] 60 mg PO DAILY 06/12/14 07/31/18 Insulin Glargine [Lantus] 80 unit SQ HS 05/05/18 07/31/18 Aspirin EC [Ecotrin Low Dose] 81 mg PO DAILY 07/31/18 07/31/18 Calcium Carb-Mag Carb-Folic 1 tab PO AC-BRKFST 07/31/18 07/31/18 [Magnebind 400] Gemfibrozil [Lopid] 600 mg PO DAILY 07/31/18 07/31/18 Omeprazole 20 mg PO DAILY 07/31/18 07/31/18 Vit C/E/Zn/Coppr/Lutein/Zeaxan 1 cap PO BID 07/31/18 07/31/18 [Preservision Areds 2 Softgel] Allergies Allergy/AdvReac Type Severity Reaction Status Date / Time sulfamethoxazole AdvReac Unknown Nausea & Verified 07/23/19 07:44 [From Bactrim] Vomiting trimethoprim [From Bactrim] AdvReac Unknown Nausea & Verified 10/22/18 07:44 Vomiting Review of Systems ROS Statement: Those systems with pertinent positive or pertinent negative responses have been documented in the HPI. ROS Other: All systems not noted in ROS Statement are negative. Past Medical History Past Medical History: Atrial Fibrillation, Asthma, Heart Failure, Diabetes Mellitus, Dialysis, Eye Disorder, GERD/Reflux, Hypertension, Osteoarthritis (OA), Pneumonia, Renal Disease, Rheumatoid Arthritis (RA), Seizure Disorder Additional Past Medical History / Comment(s): ESRD with hemodialysis --last hemo was 07/26/18, mineral bone disease, chronic anemia, IDDM type II, diabetic retinopathy-"legally blind", chronic neuropathy occasionally in toes bilateral feet and left leg, bilateral lower leg edema, cellulitis bilateral lower legs, past leg/foot wounds and currently has R medial leg wound and L leg scab that fell of and was bloody, paroxysmal Afib, 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 History of Any Multi-Drug Resistant Organisms: None Reported Past Surgical History: Hernia Repair, Orthopedic Surgery Additional Past Surgical History / Comment(s): Pt states he recenly had a procedure done on his L arm fistula at [facility], bilateral cataract surgery, insertion dialysis catheter left arm, PICC line insertion/removed, bilateral inguinal hernina repairs, colonoscopy/polypectomy, R shoulder rotator cuff repair. Past Anesthesia/Blood Transfusion Reactions: No Reported Reaction Additional Past Anesthesia/Blood Transfusion Reaction / Comment(s): Pt received blood in past without reaction. Past Psychological History: Anxiety, Depression Smoking Status: Former smoker Past Alcohol Use History: None Reported Past Drug Use History: None Reported - Past Family History Mother Family Medical History: Diabetes Mellitus Father Family Medical History: Cancer Additional Family Medical History / Comment(s): Metastatic cancer. Pt cannot recall primary. General Exam - General Exam Comments Initial Comments: Physical Exam GENERAL: Patient is well-developed and well-nourished. Patient is nontoxic and well- hydrated and is in no distress. HENT: Normocephalic, Atraumatic. EYES: PERRL, EOMI PULMONARY: Unlabored respirations. No audible rales rhonchi or wheezing was noted. CARDIOVASCULAR: There is a regular rate and rhythm without any murmurs gallops or rubs. ABDOMEN: Soft and nontender with normal bowel sounds. SKIN: Skin is clear with no lesions or rashes and otherwise unremarkable. : Deferred NEUROLOGIC: Patient is alert and oriented x3. Moving all extremities spontaneously MUSCULOSKELETAL: Normal extremities with adequate strength and full range of motion. No lower extremity swelling or edema. No calf tenderness. PSYCHIATRIC: Normal psychiatric evaluation. Limitations: no limitations Limitations: no limitations Course Vital Signs 10/22/18 10/22/18 03:24 03:59 Temperature 98.4 F Pulse Rate 79 Respiratory 18 18 Rate Blood Pressure 168/70 O2 Sat by Pulse 96 Oximetry EKG Findings - EKG Comments: EKG Findings:: EKG was obtained due to complaint of shortness of breath. EKG obtained at 3:51 AM, rate 73 rhythm is sinus the first-degree AV block. There is leftward axis, there is a left bundle branch block, W[place] is 226, QRS is 134, QTC is [address] elevations or depressions no evidence of acute ischemia or infarction. Medical Decision Making - Medical Decision Making Patient was seen and evaluated, history is obtained from patient and at bedside Patient reports that the patient just did not feel right all evening he was somewhat agitated stabbing around 2 AM he has his to bring him to the emergency department. She noted that he seemed weak and off balance. In addition on arrival emergency department he got very sweaty and lightheaded. This found the patient a blood glucose of only 52. Patient was given apple juice, crackers and peanut butter. Labs were obtained. Labs resulted with multiple chronic abnormalities consistent with patient's chronic kidney disease. Troponin elevated seems to be at baseline compared to previous. 's blood glucose on blood draw had dropped to 42 however the patient has been eating and drinking was feeling much better. Patient was then given a tuna sandwich which she also ate. Patient was reevaluated glucose has improved and is remaining study in the 80s. I discussed options with the patient including being placed in observation unit for further management and observation of his sugars versus discharge home. At this time the patient would like to be discharged home, him and his will go to breakfast and then returned home he will keep a close eye on her sugars. Close return parameters were discussed all questions pertaining care were answered patient was discharged home in stable condition. - Lab Data Result diagrams: 10/22/18 03:57 10/22/18 03:57 Lab Results 10/22/18 10/22/18 10/22/18 Range/Units 03:45 03:57 03:57 WBC 8.6 (3.8-10.6) k/uL RBC 2.71 L (4.30-5.90) m/uL Hgb 9.0 L (13.0-17.5) gm/dL Hct 29.5 L (39.0-53.0) % MCV 108.9 H (80.0-100.0) fL MCH 33.3 (25.0-35.0) pg MCHC 30.6 L (31.0-37.0) g/dL RDW 16.8 H (11.5-15.5) % Plt Count 277 (150-450) k/uL Neutrophils % (Manual) 76 % Lymphocytes % (Manual) 18 % Monocytes % (Manual) 3 % Eosinophils % (Manual) 3 % Neutrophils # (Manual) 6.54 (1.3-7.7) k/uL Lymphocytes # (Manual) 1.55 (1.0-4.8) k/uL Monocytes # (Manual) 0.26 (0-1.0) k/uL Eosinophils # (Manual) 0.26 (0-0.7) k/uL Nucleated RBCs 0 (0-0) /100 WBC Manual Slide Review Performed Hypochromasia Slight Anisocytosis Slight Macrocytosis Marked A PT (9.0-12.0) sec INR (<1.2) APTT (22.0-30.0) sec Sodium 142 (137-145) mmol/L Potassium 3.6 (3.5-5.1) mmol/L Chloride 98 (98-107) mmol/L Carbon Dioxide 33 H (22-30) mmol/L Anion Gap 11 mmol/L BUN 34 H (9-20) mg/dL Creatinine 5.50 H (0.66-1.25) mg/dL Est GFR (CKD-EPI)AfAm 11 (>60 ml/min/1.73 sqM) Est GFR (CKD-EPI)NonAf 10 (>60 ml/min/1.73 sqM) Glucose 46 L* (74-99) mg/dL POC Glucose (mg/dL) 52 L (75-99) mg/dL POC Glu Showcase Maker ID Shalini Herrera Calcium 10.1 (8.4-10.2) mg/dL Total Bilirubin 0.5 (0.2-1.3) mg/dL AST 22 (17-59) U/L ALT 14 L (21-72) U/L Alkaline Phosphatase 103 (38-126) U/L Troponin I (0.000-0.034) ng/mL NT-Pro-B Natriuret Pep pg/mL Total Protein 7.7 (6.3-8.2) g/dL Albumin 4.0 (3.5-5.0) g/dL 10/22/18 10/22/18 10/22/18 Range/Units 03:57 03:57 03:57 WBC (3.8-10.6) k/uL RBC (4.30-5.90) m/uL Hgb (13.0-17.5) gm/dL Hct (39.0-53.0) % MCV (80.0-100.0) fL MCH (25.0-35.0) pg MCHC (31.0-37.0) g/dL RDW (11.5-15.5) % Plt Count (150-450) k/uL Neutrophils % (Manual) % Lymphocytes % (Manual) % Monocytes % (Manual) % Eosinophils % (Manual) % Neutrophils # (Manual) (1.3-7.7) k/uL Lymphocytes # (Manual) (1.0-4.8) k/uL Monocytes # (Manual) (0-1.0) k/uL Eosinophils # (Manual) (0-0.7) k/uL Nucleated RBCs (0-0) /100 WBC Manual Slide Review Hypochromasia Anisocytosis Macrocytosis PT 10.3 (9.0-12.0) sec INR 1.0 (<1.2) APTT 22.6 (22.0-30.0) sec Sodium (137-145) mmol/L Potassium (3.5-5.1) mmol/L Chloride (98-107) mmol/L Carbon Dioxide (22-30) mmol/L Anion Gap mmol/L BUN (9-20) mg/dL Creatinine (0.66-1.25) mg/dL Est GFR (CKD-EPI)AfAm (>60 ml/min/1.73 sqM) Est GFR (CKD-EPI)NonAf (>60 ml/min/1.73 sqM) Glucose (74-99) mg/dL POC Glucose (mg/dL) (75-99) mg/dL POC Glu Showcase Maker ID Calcium (8.4-10.2) mg/dL Total Bilirubin (0.2-1.3) mg/dL AST (17-59) U/L ALT (21-72) U/L Alkaline Phosphatase (38-126) U/L Troponin I 0.049 H* (0.000-0.034) ng/mL NT-Pro-B Natriuret Pep 87060 pg/mL Total Protein (6.3-8.2) g/dL Albumin (3.5-5.0) g/dL 10/22/18 10/22/18 Range/Units 04:27 06:44 WBC (3.8-10.6) k/uL RBC (4.30-5.90) m/uL Hgb (13.0-17.5) gm/dL Hct (39.0-53.0) % MCV (80.0-100.0) fL MCH (25.0-35.0) pg MCHC (31.0-37.0) g/dL RDW (11.5-15.5) % Plt Count (150-450) k/uL Neutrophils % (Manual) % Lymphocytes % (Manual) % Monocytes % (Manual) % Eosinophils % (Manual) % Neutrophils # (Manual) (1.3-7.7) k/uL Lymphocytes # (Manual) (1.0-4.8) k/uL Monocytes # (Manual) (0-1.0) k/uL Eosinophils # (Manual) (0-0.7) k/uL Nucleated RBCs (0-0) /100 WBC Manual Slide Review Hypochromasia Anisocytosis Macrocytosis PT (9.0-12.0) sec INR (<1.2) APTT (22.0-30.0) sec Sodium (137-145) mmol/L Potassium (3.5-5.1) mmol/L Chloride (98-107) mmol/L Carbon Dioxide (22-30) mmol/L Anion Gap mmol/L BUN (9-20) mg/dL Creatinine (0.66-1.25) mg/dL Est GFR (CKD-EPI)AfAm (>60 ml/min/1.73 sqM) Est GFR (CKD-EPI)NonAf (>60 ml/min/1.73 sqM) Glucose (74-99) mg/dL POC Glucose (mg/dL) 83 84 (75-99) mg/dL POC Glu Showcase Maker ID Asia Loja James Calcium (8.4-10.2) mg/dL Total Bilirubin (0.2-1.3) mg/dL AST (17-59) U/L ALT (21-72) U/L Alkaline Phosphatase (38-126) U/L Troponin I (0.000-0.034) ng/mL NT-Pro-B Natriuret Pep pg/mL Total Protein (6.3-8.2) g/dL Albumin (3.5-5.0) g/dL Disposition Clinical Impression: Hypoglycemia Disposition: HOME SELF-CARE Condition: Stable Instructions (If sedation given, give patient instructions): Hypoglycemia in a Person with Diabetes (ED) Is patient prescribed a controlled substance at d/c from ED?: No Referrals: Nell Rosen MD [Primary Care Provider] - 1-2 days
[2018-10-22 04:29] LABS: Glucose,Whole Blood 83 mg/dL (75-99)
[2018-10-22 04:33] LABS: Anisocytosis Slight; HCT 29.5 % (39.0-53.0); Hypochromasia Slight; MCH 33.3 pg (25.0-35.0); MCHC 30.6 g/dL (31.0-37.0); MCV 108.9 fL (80.0-100.0); Macrocytosis Marked; Mean Platelet Volume 7.9; Platelet Count 277 k/uL (150-450); RBC 2.71 m/uL (4.30-5.90); RDW 16.8 % (11.5-15.5); WBC 8.6 k/uL (3.8-10.6)
[2018-10-22 04:42] LABS: Partial Thromboplastin Time 22.6 sec (22.0-30.0); Prothrombin Time 10.3 sec (9.0-12.0)
[2018-10-22 04:43] LABS: Calcium 10.1 mg/dL (8.4-10.2); Potassium 3.6 mmol/L (3.5-5.1); Total Bilirubin 0.5 mg/dL (0.2-1.3); Total Protein 7.7 g/dL (6.3-8.2)
[2018-10-22 05:37] LABS: Eosinophils # (M) 0.26 k/uL (0-0.7); Lymphocytes # (M) 1.55 k/uL (1.0-4.8); Monocytes # (M) 0.26 k/uL (0-1.0); Neutrophils # (M) 6.54 k/uL (1.3-7.7); Neutrophils % (M) 76 %; Nucleated Red Blood Cells 0 /100 WBC (0-0); Total Cells Counted 100
[2018-10-22 06:47] LABS: Glucose,Whole Blood 84 mg/dL (75-99)
[2018-10-22 07:51] VITALS: BP 136/63; PULSE 64; RESP 20
== END 2018-10-22 07:54 | disposition home or self-care (01) ==
LOC: EC 03:20
DX: E11.649 Type 2 diabetes mellitus with hypoglycemia without coma (principal); R53.1 Weakness; R42 Dizziness and giddiness; R06.02 Shortness of breath; R45.1 Restlessness and agitation; E11.22 Type 2 diabetes mellitus with diabetic chronic kidney disease; I13.2 Hypertensive heart and chronic kidney disease with heart failure and with stage 5 chronic kidney disease, or end stage renal disease; N18.6 End stage renal disease; I50.9 Heart failure, unspecified; M06.9 Rheumatoid arthritis, unspecified; H54.8 Legal blindness, as defined in USA; E11.40 Type 2 diabetes mellitus with diabetic neuropathy, unspecified; Z87.01 Personal history of pneumonia (recurrent); Z87.891 Personal history of nicotine dependence; Z99.2 Dependence on renal dialysis; Z98.890 Other specified postprocedural states; Z79.4 Long term (current) use of insulin; Z79.82 Long term (current) use of aspirin; Z79.899 Other long term (current) drug therapy; Z88.1 Allergy status to other antibiotic agents; Z88.2 Allergy status to sulfonamides
CPT/HCPCS: 36415; 80053; 83880; 84484; 85025; 85610; 85730; 93005; 99285

== ENCOUNTER → 2018-11-29 | Outpatient (CLI) | payer MEDICARE ==
--- NOTE | 2018-11-29 14:52 | CT ---
CT CHEST FOR PULMONARY EMBOLISM. EXAMINATION TYPE: CT angio chest DATE OF EXAM: 11/29/2018 INDICATION: Shortness of breath CT DLP: 570.9 mGycm, Automated exposure control for dose reduction was used. CONTRAST: Patient injected with 100 mL of Isovue 370. COMPARISON: None TECHNIQUE: CT of the chest is performed on a spiral scan at 2 mm thick sections. Study is performed with intravenous contrast timed for evaluation for pulmonary embolism. This will limit additional po rtions of the evaluation. 3-D MIP images reconstructed by the technologist are reviewed on the compu ter in the coronal and sagittal planes. FINDINGS: No persistent filling defects are evident to suggest an acute pulmonary embolism. There are multiple scattered lymph nodes in the superior mediastinum pretracheal space and aortopulmo pacheco window. There is an enlarged subcarinal lymph node measuring 1.9 cm. A pretracheal lymph node aurora sures 1.0 cm. Lymph node adjacent to the superior aortic arch measures 1.1 cm. A superior pretracheal node measures 1.2 cm. These are enlarged by CT criteria. There is additional prominent lymph nodes p resent. The ascending aorta diameter at the level of the main pulmonary artery is 3.8 cm. The main pulmonary artery diameter at the bifurcation is 3.6 cm. Mild bilateral pleural effusions are present. Limited CT section through the upper abdomen are unremarkable. IMPRESSIONS: 1. No acute pulmonary embolism. 2. Multiple enlarged lymph nodes throughout the mediastinum. Findings are nonspecific. Neoplasm shoul d be considered. Consider additional workup with PET CT. 3. Small bilateral pleural effusions.
== END | disposition home or self-care (01) ==
LOC: RADCTMAIN 08:41
PROVIDERS: ATTEND Internal Medicine Critical Care Medicine
DX: J90 Pleural effusion, not elsewhere classified (principal); R59.9 Enlarged lymph nodes, unspecified; Z91.048 Other nonmedicinal substance allergy status
CPT/HCPCS: 82565; 84520; 71275; 36415; Q9967

== ENCOUNTER → 2018-12-11 | Outpatient (CLI) | payer MEDICARE | END | disposition home or self-care (01) | LOC: CPPFTMAIN 09:27 | PROVIDERS: ATTEND Internal Medicine Critical Care Medicine | DX: J98.8 Other specified respiratory disorders (principal) | CPT/HCPCS: 94060; 94726; 94729 ==

== ENCOUNTER → 2018-12-14 | Outpatient (CLI) | payer MEDICARE | END | disposition home or self-care (01) | LOC: RADPETMAIN 12:19 | PROVIDERS: ATTEND Family Medicine | DX: Z53.9 Procedure and treatment not carried out, unspecified reason (principal) ==

== ENCOUNTER → 2018-12-21 | Outpatient (CLI) | payer MEDICARE | END | disposition home or self-care (01) | LOC: RADPETMAIN 07:19 | PROVIDERS: ATTEND Family Medicine | DX: Z53.9 Procedure and treatment not carried out, unspecified reason (principal) ==

== ENCOUNTER 2019-02-26 02:50 | Observation (INO) | payer MEDICARE ==
[2019-02-26 03:52] LABS: Albumin 3.9 g/dL (3.5-5.0); Calcium 9.6 mg/dL (8.4-10.2); Potassium 3.9 mmol/L (3.5-5.1); Total Bilirubin 0.6 mg/dL (0.2-1.3); Total Protein 7.3 g/dL (6.3-8.2)
--- NOTE | 2019-02-26 04:21 | ED ---
SOB HPI - General Chief Complaint: Shortness of Breath Stated Complaint: BRO Time Seen by Provider: 02/26/19 03:07 Source: patient Mode of arrival: wheelchair - History of Present Illness Initial Comments: Grzegorz is a 68-year-old gentleman with a history of end-stage renal disease on dialysis on the patient usually attends dialysis Sunday, Sunday, Sunday however due to the holiday this week he went Sunday and is scheduled for dialysis again Sunday. Patient reports that over the past 2-3 weeks is been experiencing shortness of breath and using his inhalers more frequently. Patient reports that he was in contact with his grandchild and his daughter who were previously diagnosed with pneumonia. Patient states that tonight he felt febrile was hot to the touch, became diaphoretic and took Tylenol. Due to believing he had a fever while on dialysis he decided to come to the ER for further evaluation. Patient is concerning may have pneumonia. - Related Data Home Medications Medication Instructions Recorded Confirmed Etanercept [Enbrel] 50 mg SQ LUU 06/12/14 02/26/19 Furosemide [Lasix] 20 mg PO DAILY 06/12/14 02/26/19 Insulin Lispro [humaLOG] See Protocol SQ AC-TID PRN 06/12/14 02/26/19 NIFEdipine [NIFEdipine ER] 60 mg PO DAILY 06/12/14 02/26/19 Insulin Glargine [Lantus] 70 unit SQ HS 05/05/18 02/26/19 Aspirin EC [Ecotrin Low Dose] 81 mg PO DAILY 07/31/18 02/26/19 Calcium Carb-Mag Carb-Folic 1 tab PO AC-BRKFST 07/31/18 02/26/19 [Magnebind 400] Gemfibrozil [Lopid] 600 mg PO DAILY 07/31/18 02/26/19 Omeprazole 20 mg PO DAILY 07/31/18 02/26/19 Vit C/E/Zn/Coppr/Lutein/Zeaxan 1 cap PO BID 07/31/18 02/26/19 [Preservision Areds 2 Softgel] Allergies Allergy/AdvReac Type Severity Reaction Status Date / Time sulfamethoxazole AdvReac Unknown Nausea & Verified 10/22/18 07:44 [From Bactrim] Vomiting trimethoprim [From Bactrim] AdvReac Unknown Nausea & Verified 10/22/18 07:44 Vomiting Review of Systems ROS Statement: Those systems with pertinent positive or pertinent negative responses have been documented in the HPI. ROS Other: All systems not noted in ROS Statement are negative. Past Medical History Past Medical History: Atrial Fibrillation, Asthma, Heart Failure, Diabetes Mellitus, Dialysis, Eye Disorder, GERD/Reflux, Hypertension, Osteoarthritis (OA), Pneumonia, Renal Disease, Rheumatoid Arthritis (RA), Seizure Disorder Additional Past Medical History / Comment(s): ESRD with hemodialysis ---last hemo was 02/24/19, mineral bone disease, chronic anemia, IDDM type II, diabetic retinopathy-"legally blind", chronic neuropathy occasionally in toes bilateral feet and left leg, bilateral lower leg edema, cellulitis bilateral lower legs, past leg/foot wounds and currently has R medial leg wound and L leg scab that fell of and was bloody, paroxysmal Afib, 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 History of Any Multi-Drug Resistant Organisms: None Reported Past Surgical History: Hernia Repair, Orthopedic Surgery Additional Past Surgical History / Comment(s): Pt states he recenly had a procedure done on his L arm fistula at [facility], bilateral cataract surgery, insertion dialysis catheter left arm, PICC line insertion/removed, bilateral inguinal hernina repairs, colonoscopy/polypectomy, R shoulder rotator cuff repair. Past Anesthesia/Blood Transfusion Reactions: No Reported Reaction Additional Past Anesthesia/Blood Transfusion Reaction / Comment(s): Pt received blood in past without reaction. Past Psychological History: Anxiety, Depression Smoking Status: Former smoker Past Alcohol Use History: None Reported Past Drug Use History: None Reported - Past Family History Mother Family Medical History: Diabetes Mellitus Father Family Medical History: Cancer Additional Family Medical History / Comment(s): Metastatic cancer. Pt cannot recall primary. General Exam - General Exam Comments Initial Comments: Physical Exam GENERAL: Patient is well-developed and well-nourished. Patient is nontoxic and well- hydrated and is in no distress. HENT: Normocephalic, Atraumatic. EYES: PERRL, EOMI PULMONARY: Unlabored respirations. Crackles at bilateral bases. CARDIOVASCULAR: There is a regular rate and rhythm without any murmurs gallops or rubs. ABDOMEN: Soft and nontender with normal bowel sounds. SKIN: Skin is clear with no lesions or rashes and otherwise unremarkable. : Deferred NEUROLOGIC: Patient is alert and oriented x3. Moving all extremities spontaneously MUSCULOSKELETAL: Normal extremities with adequate strength and full range of motion. No lower extremity swelling or edema. No calf tenderness. PSYCHIATRIC: Normal psychiatric evaluation. Course Vital Signs 02/26/19 02/26/19 02/26/19 02:53 03:23 04:02 Temperature 97.9 F 98.6 F Pulse Rate 66 60 Respiratory 22 20 20 Rate Blood Pressure 124/65 129/70 O2 Sat by Pulse 95 96 Oximetry 02/26/19 02/26/19 04:10 04:20 Temperature Pulse Rate 66 64 Respiratory 24 12 Rate Blood Pressure O2 Sat by Pulse 96 96 Oximetry Medical Decision Making - Medical Decision Making Patient was seen and evaluated, history is obtained from the patient excited 68-year-old gentleman on dialysis who reports he had subjective fever and chills earlier today took Tylenol prior to arrival. Is concerned he may have pneumonia due to minimally productive cough that has been present for approximately 3 wee ks duration. Observe baseline for the patient, chronic anemia chronic kidney disease, no hyperkalemia Influenza is negative, chest x-ray has bilateral pleural effusions with pulmonary vascular congestion. Considering patient's fluid overload and that he is not scheduled for dialysis for 3 days I don't feel he is stable for discharge home. I do feel the patient will require dialysis for further fluid management. Patient does make urine and was ordered Lasix. Plan was discussed with patient. I offered to contact his fuel pilot engineer to see if we could for denies palpation dialysis today however his oxygen saturation is only 92% this time he is not comfortable with that plan therefore we will plan to place the patient observation for inpatient dialysis. - Lab Data Result diagrams: 02/26/19 03:19 02/26/19 03:19 Lab Results 02/26/19 02/26/19 02/26/19 Range/Units 03:19 03:19 03:19 WBC 8.1 (3.8-10.6) k/uL RBC 3.11 L (4.30-5.90) m/uL Hgb 11.0 L (13.0-17.5) gm/dL Hct 33.2 L (39.0-53.0) % MCV 107.0 H (80.0-100.0) fL MCH 35.3 H (25.0-35.0) pg MCHC 33.0 (31.0-37.0) g/dL RDW 15.6 H (11.5-15.5) % Plt Count 249 (150-450) k/uL Neutrophils % 78 % Lymphocytes % 11 % Monocytes % 6 % Eosinophils % 3 % Basophils % 1 % Neutrophils # 6.3 (1.3-7.7) k/uL Lymphocytes # 0.9 L (1.0-4.8) k/uL Monocytes # 0.5 (0-1.0) k/uL Eosinophils # 0.2 (0-0.7) k/uL Basophils # 0.1 (0-0.2) k/uL Manual Slide Review Performed Large Platelets Present Polychromasia Present Hypochromasia Slight Poikilocytosis (manual Present Anisocytosis (manual) Present Macrocytosis Marked A Sodium 140 (137-145) mmol/L Potassium 3.9 (3.5-5.1) mmol/L Chloride 96 L (98-107) mmol/L Carbon Dioxide 32 H (22-30) mmol/L Anion Gap 12 mmol/L BUN 31 H (9-20) mg/dL Creatinine 4.62 H (0.66-1.25) mg/dL Est GFR (CKD-EPI)AfAm 14 (>60 ml/min/1.73 sqM) Est GFR (CKD-EPI)NonAf 12 (>60 ml/min/1.73 sqM) Glucose 95 (74-99) mg/dL Plasma Lactic Acid John (0.7-2.0) mmol/L Calcium 9.6 (8.4-10.2) mg/dL Magnesium 2.0 (1.6-2.3) mg/dL Total Bilirubin 0.6 (0.2-1.3) mg/dL AST 24 (17-59) U/L ALT 25 (21-72) U/L Alkaline Phosphatase 120 (38-126) U/L NT-Pro-B Natriuret Pep 18760 pg/mL Total Protein 7.3 (6.3-8.2) g/dL Albumin 3.9 (3.5-5.0) g/dL Influenza Type A RNA (Not Detectd) Influenza Type B (PCR) (Not Detectd) 02/26/19 02/26/19 Range/Units 03:19 03:19 WBC (3.8-10.6) k/uL RBC (4.30-5.90) m/uL Hgb (13.0-17.5) gm/dL Hct (39.0-53.0) % MCV (80.0-100.0) fL MCH (25.0-35.0) pg MCHC (31.0-37.0) g/dL RDW (11.5-15.5) % Plt Count (150-450) k/uL Neutrophils % % Lymphocytes % % Monocytes % % Eosinophils % % Basophils % % Neutrophils # (1.3-7.7) k/uL Lymphocytes # (1.0-4.8) k/uL Monocytes # (0-1.0) k/uL Eosinophils # (0-0.7) k/uL Basophils # (0-0.2) k/uL Manual Slide Review Large Platelets Polychromasia Hypochromasia Poikilocytosis (manual Anisocytosis (manual) Macrocytosis Sodium (137-145) mmol/L Potassium (3.5-5.1) mmol/L Chloride (98-107) mmol/L Carbon Dioxide (22-30) mmol/L Anion Gap mmol/L BUN (9-20) mg/dL Creatinine (0.66-1.25) mg/dL Est GFR (CKD-EPI)AfAm (>60 ml/min/1.73 sqM) Est GFR (CKD-EPI)NonAf (>60 ml/min/1.73 sqM) Glucose (74-99) mg/dL Plasma Lactic Acid John 1.6 (0.7-2.0) mmol/L Calcium (8.4-10.2) mg/dL Magnesium (1.6-2.3) mg/dL Total Bilirubin (0.2-1.3) mg/dL AST (17-59) U/L ALT (21-72) U/L Alkaline Phosphatase (38-126) U/L NT-Pro-B Natriuret Pep pg/mL Total Protein (6.3-8.2) g/dL Albumin (3.5-5.0) g/dL Influenza Type A RNA Not Detected (Not Detectd) Influenza Type B (PCR) Not Detected (Not Detectd) - EKG Data -: EKG Interpreted by Me EKG Comments: EKG was obtained due to complaint of shortness of breath, EKG obtained at 3:10 AM, rate is 72 rhythm is narrow complex irregularly irregular rhythm consistent with atrial fibrillation. QRS is 122, QTc is 462. There is a left bundle- branch block. There are no acute ST elevations or depressions no evidence of acute ischemia or infarction. Disposition Clinical Impression: Renal failure, Fluid overload, Acute pulmonary edema Disposition: ADMITTED IP TO THIS HOSP Condition: Stable Is patient prescribed a controlled substance at d/c from ED?: No Referrals: Nell Rosen MD [Primary Care Provider] - 1-2 days
[2019-02-26 04:25] LABS: Basophils # (A) 0.1 k/uL (0-0.2); Basophils % (A) 1 %; Eosinophils # (A) 0.2 k/uL (0-0.7); Eosinophils % (A) 3 %; HCT 33.2 % (39.0-53.0); Hypochromasia Slight; Lymphocytes # (A) 0.9 k/uL (1.0-4.8); Lymphocytes % (A) 11 %; MCH 35.3 pg (25.0-35.0); Macrocytosis Marked; Mean Platelet Volume 6.8; Monocytes # (A) 0.5 k/uL (0-1.0); Monocytes % (A) 6 %; Neutrophils # (A) 6.3 k/uL (1.3-7.7); Neutrophils % (A) 78 %; Platelet Count 249 k/uL (150-450); RBC 3.11 m/uL (4.30-5.90); RDW 15.6 % (11.5-15.5); WBC 8.1 k/uL (3.8-10.6)
--- NOTE | 2019-02-26 04:46 | XR ---
EXAM: XR Chest, 2 Views CLINICAL HISTORY: dyspnea TECHNIQUE: Frontal and lateral views of the chest. COMPARISON: 11/28/2018. FINDINGS: Lungs: Findings suggestive of mild pulmonary vascular congestion/pulmonary edema, more conspicuous on this study than the prior. Pleural space: Moderate left pleural effusion with compressive atelectasis and/or consolidation of the left lung base, new since prior study. Small right pleural effusion is also noted, new since prior study. No pneumothorax. Heart: The heart is likely at upper limits of normal/mildly enlarged, not seen on prior study. Mediastinum: Essentially unchanged. Bones/joints: Unremarkable. IMPRESSION: 1. Moderate left pleural effusion with compressive atelectasis and/or consolidation of the left lung base, new since prior study. 2. Small right pleural effusion is also noted, new since prior study. 3. Findings suggestive of mild pulmonary vascular congestion/pulmonary edema, more conspicuous on this study than the prior. 4. The heart is likely at upper limits of normal/mildly enlarged, not seen on prior study.
[2019-02-26 05:45] LABS: Anisocytosis (M) Present; Polychromasia Present
[2019-02-26 05:47] LABS: Large Platelets Present; Poikilocytosis (M) Present
[2019-02-26] MEDS ORDERED: NALOXONE 0.4 MG/ML 1 ML VIAL IV PRN (05:55)
[2019-02-26] MEDS ORDERED: FUROSEMIDE 10 MG/ML 4 ML VIAL IV STA (05:57)
--- NOTE | 2019-02-26 11:11 | P.NPCON ---
History of Present Illness - Reason for Consult end stage renal disease - History of Present Illness Reason for consultation: End-stage renal disease History of present illness: Patient is a 68-year-old male seen in renal consultation for end-stage renal disease. He is maintained on hemodialysis on Sunday schedule. Due to the , he did complete hemodialysis yesterday. However patient states once he got home just shortly after he became short of breath. Patient states he was watching TV when he became short of breath. Patient states he took Symbicort which did not help significantly. Therefore the patient came to the hospital. Patient's chest x-ray reveals moderate left- sided pleural effusion as well as a small right-sided pleural effusion. Patient denies fever or chills. No significant cough. No vomiting or diarrhea. Hemodynamically stable. No chest pain. No abdominal pain. Vital signs are stable. General: The patient appeared well nourished and normally developed. HEENT: Head exam is unremarkable. Neck is without jugular venous distension. LUNGS: Breath sounds decreased. HEART: Rate and Rhythm are regular. First and second heart sounds normal. No murmurs, rubs or gallops. ABDOMEN: Abdominal exam reveals normal bowel sounds. Non-tender and non- distended. No evidence of peritonitis. EXTREMITITES: 1+ edema. Past Medical History Past Medical History: Atrial Fibrillation, Asthma, Heart Failure, Diabetes Mellitus, Dialysis, Eye Disorder, GERD/Reflux, Hypertension, Osteoarthritis (OA), Pneumonia, Renal Disease, Rheumatoid Arthritis (RA), Seizure Disorder Additional Past Medical History / Comment(s): ESRD with hemodialysis, mineral bone disease, chronic anemia, IDDM type II, diabetic retinopathy-"legally blind", chronic neuropathy occasionally in toes bilateral feet and left leg, bilateral lower leg edema, cellulitis bilateral lower legs, past leg/foot wounds and currently has left medial leg wounds that have scabbed over and no longer goes to [facility], paroxysmal Afib, 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 History of Any Multi-Drug Resistant Organisms: None Reported Past Surgical History: Hernia Repair, Orthopedic Surgery Additional Past Surgical History / Comment(s): Bilateral cataract surgery, insertion dialysis catheter left arm then had a procedure done to dialysis catheter at [facility]-cannot recall exactly what was done, PICC line ins ertion/removed, bilateral inguinal hernina repairs, colonoscopy/polypectomy, R shoulder rotator cuff repair, debridements bilateral feet. Past Anesthesia/Blood Transfusion Reactions: No Reported Reaction Additional Past Anesthesia/Blood Transfusion Reaction / Comment(s): Pt received blood in past without reaction. Smoking Status: Former smoker - Past Family History Mother Family Medical History: Diabetes Mellitus Father Family Medical History: Cancer Additional Family Medical History / Comment(s): Metastatic cancer. Pt cannot recall primary. Medications and Allergies Home Medications Medication Instructions Recorded Confirmed Type Etanercept [Enbrel] 50 mg SQ LUU 06/12/14 02/26/19 History Furosemide [Lasix] 40 mg PO BID 06/12/14 02/26/19 History NIFEdipine [NIFEdipine ER] 60 mg PO DAILY 06/12/14 02/26/19 History Insulin Glargine [Lantus] 70 unit SQ HS 05/05/18 02/26/19 History Aspirin EC [Ecotrin Low Dose] 81 mg PO DAILY 07/31/18 02/26/19 History Gemfibrozil [Lopid] 600 mg PO BID 07/31/18 02/26/19 History Vit C/E/Zn/Coppr/Lutein/Zeaxan 1 cap PO BID 07/31/18 02/26/19 History [Preservision Areds 2 Softgel] Budesonide-Formot 160-4.5 Mcg 2 puff INHALATION RT-BID 02/26/19 02/26/19 History [Symbicort 160-4.5 Mcg Inhaler] Calcium Acetate [Phoslo] 2,001 mg PO TID 02/26/19 02/26/19 History Metoprolol Tartrate [Lopressor] 50 mg PO BID 02/26/19 02/26/19 History Omeprazole 40 mg PO DAILY 02/26/19 02/26/19 History Sevelamer Carbonate 800 mg PO DIRECTED 02/26/19 02/26/19 History Allergies Allergy/AdvReac Type Severity Reaction Status Date / Time sulfamethoxazole AdvReac Unknown Nausea & Verified 02/26/19 08:01 [From Bactrim] Vomiting trimethoprim [From Bactrim] AdvReac Unknown Nausea & Verified 02/26/19 08:01 Vomiting Physical Exam Vitals: Vital Signs Temp Pulse Pulse Resp BP BP Pulse Ox 02/26/19 07:00 98 F 66 20 132/69 96 02/26/19 06:21 98.6 F 60 18 126/78 96 02/26/19 04:20 64 12 96 02/26/19 04:10 66 24 96 02/26/19 04:02 98.6 F 60 20 129/70 96 02/26/19 03:23 20 02/26/19 02:53 97.9 F 66 22 124/65 95 Intake and Output 02/25/19 02/26/19 02/26/19 22:59 06:59 14:59 Other: Weight 122.47 kg 122.47 kg Results - Lab Results Most recent lab results Calcium 9.6 mg/dL (8.4-10.2) 02/26/19 03:19 Magnesium 2.0 mg/dL (1.6-2.3) 02/26/19 03:19 02/26/19 03:19 02/26/19 03:19 Assessment and Plan Plan: Assessment: 1. End-stage renal disease maintained on hemodialysis on Sunday schedule for a left upper extremity AV fistula. 2. Dyspnea secondary to volume overload. 3. Hypertension with chronic kidney disease. Controlled. 4. Insulin-dependent diabetes mellitus. 5. Chronic kidney disease mineral bone disease maintained on PhosLo. 6. Acute on chronic diastolic CHF. Plan: Hemodialysis today with goal 3 L ultrafiltration. Resume PhosLo with meals. Low-salt diet. Thank you for the consultation. I will continue to follow the patient with you during his hospital stay.
[2019-02-26] MEDS ORDERED: CALCIUM ACETATE 667 MG TAB PO SCH ×2 (12:30→17:30)
[2019-02-26 15:00] VITALS: BP 156/80; PULSE 68; RESP 18; TEMP 98.6
--- NOTE | 2019-02-26 15:19 | P.HPIM ---
History of Present Illness 68-year-old pleasant male with incision disease on hemodialysis Sunday and Sunday came in with comments of shortness of breath found to have pulmonary edema. Patient did get his hemodialysis yesterday shortly after reaching home patient started having shortness of breath. Patient was evaluated by nephrology here patient will undergo hemodialysis with removal of 3 L of fluid. Patient is feeling much better wanted to go home after hemodialysis patient is saturating at 97% on 2 L of oxygen patient does use oxygen at home chest x-ray shows moderate left-sided pleural effusion, small right-sided pleural effusion as w ell, patient received IV Lasix, he doesn't make much urine. any fever chills cough. Review of Systems REVIEW OF SYSTEMS: CONSTITUTIONAL: No fever, no malaise, no fatigue. HEENT: No recent visual problems or hearing problems. Denied any sore throat. CARDIOVASCULAR: No chest pain, no palpitations, no syncope. PULMONARY: no cough, no hemoptysis. GASTROINTESTINAL: No diarrhea, no nausea, no vomiting, no abdominal pain. NEUROLOGICAL: No headaches, no weakness, no numbness. HEMATOLOGICAL: Denies any bleeding or petechiae. GENITOURINARY: Denies any burning micturition, frequency, or urgency. MUSCULOSKELETAL/RHEUMATOLOGICAL: Denies any joint pain, swelling, or any muscle pain. ENDOCRINE: Denies any polyuria or polydipsia. The rest of the 14-point review of systems is negative. Past Medical History Past Medical History: Atrial Fibrillation, Asthma, Heart Failure, Diabetes Mellitus, Dialysis, Eye Disorder, GERD/Reflux, Hypertension, Osteoarthritis (OA), Pneumonia, Renal Disease, Rheumatoid Arthritis (RA), Seizure Disorder Additional Past Medical History / Comment(s): ESRD with hemodialysis, mineral bone disease, chronic anemia, IDDM type II, diabetic retinopathy-"legally bli nd", chronic neuropathy occasionally in toes bilateral feet and left leg, bilateral lower leg edema, cellulitis bilateral lower legs, past leg/foot wounds and currently has left medial leg wounds that have scabbed over and no longer goes to [facility], paroxysmal Afib, 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 History of Any Multi-Drug Resistant Organisms: None Reported Past Surgical History: Hernia Repair, Orthopedic Surgery Additional Past Surgical History / Comment(s): Bilateral cataract surgery, insertion dialysis catheter left arm then had a procedure done to dialysis catheter at [facility]-cannot recall exactly what was done, PICC line insertion/removed, bilateral inguinal hernina repairs, colonoscopy/polypectomy, R shoulder rotator cuff repair, debridements bilateral feet. Past Anesthesia/Blood Transfusion Reactions: No Reported Reaction Additional Past Anesthesia/Blood Transfusion Reaction / Comment(s): Pt received blood in past without reaction. Smoking Status: Former smoker - Past Family History Mother Family Medical History: Diabetes Mellitus Father Family Medical History: Cancer Additional Family Medical History / Comment(s): Metastatic cancer. Pt cannot recall primary. Medications and Allergies Home Medications Medication Instructions Recorded Confirmed Type Etanercept [Enbrel] 50 mg SQ LUU 06/12/14 02/26/19 History Furosemide [Lasix] 40 mg PO BID 06/12/14 02/26/19 History NIFEdipine [NIFEdipine ER] 60 mg PO DAILY 06/12/14 02/26/19 History Insulin Glargine [Lantus] 70 unit SQ HS 05/05/18 02/26/19 History Aspirin EC [Ecotrin Low Dose] 81 mg PO DAILY 07/31/18 02/26/19 History Gemfibrozil [Lopid] 600 mg PO BID 07/31/18 02/26/19 History Vit C/E/Zn/Coppr/Lutein/Zeaxan 1 cap PO BID 07/31/18 02/26/19 History [Preservision Areds 2 Softgel] Budesonide-Formot 160-4.5 Mcg 2 puff INHALATION RT-BID 02/26/19 02/26/19 History [Symbicort 160-4.5 Mcg Inhaler] Calcium Acetate [Phoslo] 2,001 mg PO TID-W/MEALS 02/26/19 02/26/19 History Magnebind 250/300mg 1 tab PO BID 02/26/19 02/26/19 History Metoprolol Tartrate [Lopressor] 50 mg PO BID 02/26/19 02/26/19 History Omeprazole 40 mg PO DAILY 02/26/19 02/26/19 History Prorenal + D 1 tab PO DAILY 02/26/19 02/26/19 History levOCARNitine [Levocarnitine] 330 mg PO TID-W/MEALS 02/26/19 02/26/19 History Allergies Allergy/AdvReac Type Severity Reaction Status Date / Time sulfamethoxazole AdvReac Unknown Nausea & Verified 02/26/19 08:01 [From Bactrim] Vomiting trimethoprim [From Bactrim] AdvReac Unknown Nausea & Verified 02/26/19 08:01 Vomiting Physical Exam Vitals: Vital Signs Temp Pulse Pulse Resp BP BP Pulse Ox 02/26/19 14:59 98.6 F 68 18 156/80 02/26/19 11:26 97.9 F 64 20 133/70 97 02/26/19 08:00 64 20 02/26/19 07:00 98 F 66 20 132/69 96 02/26/19 06:21 98.6 F 60 18 126/78 96 02/26/19 04:20 64 12 96 02/26/19 04:10 66 24 96 02/26/19 04:02 98.6 F 60 20 129/70 96 02/26/19 03:23 20 02/26/19 02:53 97.9 F 66 22 124/65 95 Intake and Output 02/26/19 02/26/19 02/26/19 06:59 14:59 22:59 Intake Total 200 Output Total 3000 Balance -2800 Intake: Oral 200 Output: Hemodialysis 3000 Other: Weight 122.47 kg 122.47 kg PHYSICAL EXAMINATION: GENERAL: The patient is alert and oriented x3, not in any acute distress. Well developed, well nourished. HEENT: Pupils are round and equally reacting to light. EOMI. No scleral icterus. No conjunctival pallor. Normocephalic, atraumatic. No pharyngeal erythema. No thyromegaly. CARDIOVASCULAR: S1 and S2 present. No murmurs, rubs, or gallops. PULMONARY: Chest is clear to auscultation, no wheezing or crackles. ABDOMEN: Soft, nontender, nondistended, normoactive bowel sounds. No palpable organomegaly. MUSCULOSKELETAL: No joint swelling or deformity. EXTREMITIES: No cyanosis, clubbing, or pedal edema. NEUROLOGICAL: Gross neurological examination did not reveal any focal deficits. SKIN: No rashes. Results CBC & Chem 7: 02/26/19 03:19 02/26/19 03:19 Labs: Abnormal Lab Results - Last 24 Hours (Table) 02/26/19 02/26/19 Range/Units 03:19 03:19 RBC 3.11 L (4.30-5.90) m/uL Hgb 11.0 L (13.0-17.5) gm/dL Hct 33.2 L (39.0-53.0) % MCV 107.0 H (80.0-100.0) fL MCH 35.3 H (25.0-35.0) pg RDW 15.6 H (11.5-15.5) % Lymphocytes # 0.9 L (1.0-4.8) k/uL Macrocytosis Marked A Chloride 96 L (98-107) mmol/L Carbon Dioxide 32 H (22-30) mmol/L BUN 31 H (9-20) mg/dL Creatinine 4.62 H (0.66-1.25) mg/dL Thrombosis Risk Factor Assmnt - Choose All That Apply Any of the Below Risk Factors Present?: Yes Each Factor Represents 1 point: Heart failure (<1month), Obesity (BMI >25) Other Risk Factors: Yes Each Risk Factor Represents 2 Points: Age 61-74 years Other congenital or acquired thrombophilia - If yes, enter type in comment: No Thrombosis Risk Factor Assessment Total Risk Factor Score: 4 Thrombosis Risk Factor Assessment Level: Moderate Risk Assessment and Plan Plan: -Volume overload and pulmonary edema, patient is a known dialysis patient will undergo hemodialysis today may have chronic diastolic dysfunction with acute exacerbation after hemodialysis if cleared by nephrology patient will be discharged -Bilateral pleural effusion secondary to pulmonary edema as mentioned above -Hypertension secondary to chronic kidney disease fairly well controlled -Insulin-dependent diabetes mellitus uncontrolled blood sugars and do not have enough time to titrate his diabetic and hypertensive medications anyway if patient is cleared will be discharged today -Seizure disorder -Gastroesophageal reflux disease
--- NOTE | 2019-02-26 15:19 | P.DS ---
Providers Date of admission: 02/26/19 05:55 Attending physician: Germain Dowd Consults: 02/26/19 05:55 Consult Physician Stat Consulting Provider: Janette Greenberg Consult Reason/Comments: needs dialysis Do you want consulting provider notified?: Yes Primary care physician: Nell Rosen [facility] Course: Please refer to my HPI for further details Patient Condition at Discharge: Stable Plan - Discharge Summary Discharge Rx Participant: No New Discharge Prescriptions: Continue NIFEdipine [NIFEdipine ER] 60 mg PO DAILY Furosemide [Lasix] 40 mg PO BID Etanercept [Enbrel] 50 mg SQ LUU Insulin Glargine [Lantus] 70 unit SQ HS Gemfibrozil [Lopid] 600 mg PO BID Aspirin EC [Ecotrin Low Dose] 81 mg PO DAILY Vit C/E/Zn/Coppr/Lutein/Zeaxan [Preservision Areds 2 Softgel] 1 cap PO BID Budesonide-Formot 160-4.5 Mcg [Symbicort 160-4.5 Mcg Inhaler] 2 puff INHALATION RT-BID Omeprazole 40 mg PO DAILY Metoprolol Tartrate [Lopressor] 50 mg PO BID Calcium Acetate [PhosLo] 2,001 mg PO TID-W/MEALS levOCARNitine [Levocarnitine] 330 mg PO TID-W/MEALS Magnebind 250/300mg 1 tab PO BID Prorenal + D 1 tab PO DAILY Discharge Medication List Etanercept [Enbrel] 50 mg SQ LUU 06/12/14 [History] Furosemide [Lasix] 40 mg PO BID 06/12/14 [History] NIFEdipine [NIFEdipine ER] 60 mg PO DAILY 06/12/14 [History] Insulin Glargine [Lantus] 70 unit SQ HS 05/05/18 [History] Aspirin EC [Ecotrin Low Dose] 81 mg PO DAILY 07/31/18 [History] Gemfibrozil [Lopid] 600 mg PO BID 07/31/18 [History] Vit C/E/Zn/Coppr/Lutein/Zeaxan [Preservision Areds 2 Softgel] 1 cap PO BID 07/31/18 [History] Budesonide-Formot 160-4.5 Mcg [Symbicort 160-4.5 Mcg Inhaler] 2 puff INHALATION RT-BID 02/26/19 [History] Calcium Acetate [PhosLo] 2,001 mg PO TID-W/MEALS 02/26/19 [History] Magnebind 250/300mg 1 tab PO BID 02/26/19 [History] Metoprolol Tartrate [Lopressor] 50 mg PO BID 02/26/19 [History] Omeprazole 40 mg PO DAILY 02/26/19 [History] Prorenal + D 1 tab PO DAILY 02/26/19 [History] levOCARNitine [Levocarnitine] 330 mg PO TID-W/MEALS 02/26/19 [History] Follow up Appointment(s)/Referral(s): Nell Rosen MD [Primary Care Provider] - 3 Days
[2019-02-26] MEDS ORDERED: FUROSEMIDE 40 MG TAB PO SCH (16:00)
[2019-02-26] MEDS ORDERED: levOCARNitine (WITH SUGAR) 100 MG/ML BOTTLE PO SCH (17:30)
[2019-02-26] MEDS ORDERED: PANTOPRAZOLE 40 MG TABLET PO SCH (17:30)
[2019-02-26] MEDS ORDERED: SYMBICORT 160-4.5 MCG INHALER INHALATION SCH (20:00)
[2019-02-26] MEDS ORDERED: VIT A,C & E-LUTEIN-MINERALS 1 EACH TAB PO SCH (21:00)
[2019-02-26] MEDS ORDERED: METOPROLOL TARTRATE 50 MG TAB PO SCH (21:00)
[2019-02-26] MEDS ORDERED: INSULIN DETEMIR (LEVEMIR) 100 UNIT/ML SYR SQ SCH (21:00)
[2019-02-26] MEDS ORDERED: CALCIUM CARB-MAG CARB-FOLIC 1 EACH TAB PO SCH (21:00)
[2019-02-27] MEDS ORDERED: NON FORMULARY DRUG (Omeprazole [Omeprazole] 40 MG) PO SCH (09:00)
[2019-02-27] MEDS ORDERED: FENOFIBRATE 160 MG TAB PO SCH (09:00)
[2019-02-27] MEDS ORDERED: ASPIRIN 81 MG PO SCH (09:00)
[2019-02-27] MEDS ORDERED: FOLIC ACID-VIT B COMPLEX-VIT C 1 CAP PO SCH (09:00)
== END 2019-02-26 18:10 | disposition home or self-care (01) ==
LOC: EC 02:50 → 3NMEDONC 05:55
PROVIDERS: ADMIT Hospitalist; ATTEND Hospitalist
DX: E87.70 Fluid overload, unspecified (principal); I13.2 Hypertensive heart and chronic kidney disease with heart failure and with stage 5 chronic kidney disease, or end stage renal disease; I50.33 Acute on chronic diastolic (congestive) heart failure; N18.6 End stage renal disease; E11.22 Type 2 diabetes mellitus with diabetic chronic kidney disease; Z99.2 Dependence on renal dialysis; E11.42 Type 2 diabetes mellitus with diabetic polyneuropathy; E11.319 Type 2 diabetes mellitus with unspecified diabetic retinopathy without macular edema; Z79.4 Long term (current) use of insulin; N25.0 Renal osteodystrophy; Z87.891 Personal history of nicotine dependence; H54.8 Legal blindness, as defined in USA; I48.0 Paroxysmal atrial fibrillation; J45.909 Unspecified asthma, uncomplicated; K21.9 Gastro-esophageal reflux disease without esophagitis; M19.90 Unspecified osteoarthritis, unspecified site; M06.9 Rheumatoid arthritis, unspecified; D53.9 Nutritional anemia, unspecified; L03.116 Cellulitis of left lower limb; L03.115 Cellulitis of right lower limb; Z86.79 Personal history of other diseases of the circulatory system; G89.29 Other chronic pain; M54.9 Dorsalgia, unspecified; Z86.19 Personal history of other infectious and parasitic diseases; Z98.42 Cataract extraction status, left eye; Z98.41 Cataract extraction status, right eye; Z87.01 Personal history of pneumonia (recurrent); E66.9 Obesity, unspecified; Z68.33 Body mass index [BMI] 33.0-33.9, adult; F41.9 Anxiety disorder, unspecified; F32.9 Major depressive disorder, single episode, unspecified; Z83.3 Family history of diabetes mellitus; Z80.9 Family history of malignant neoplasm, unspecified; Z79.82 Long term (current) use of aspirin; Z79.51 Long term (current) use of inhaled steroids; Z79.899 Other long term (current) drug therapy; Z99.81 Dependence on supplemental oxygen; Z88.2 Allergy status to sulfonamides
CPT/HCPCS: 96374; 99285; 36415; 83880; 80053; 83605; 83735; 85025; 87502; 71046; G0378; G0257; J1940; 90935

== ENCOUNTER 2019-03-15 02:19 | Inpatient (IN) | payer MEDICARE ==
[2019-03-15 03:07] LABS: Glucose,Whole Blood 80 mg/dL (75-99)
[2019-03-15 03:07] LABS: Glucose,Whole Blood 80 mg/dL (75-99)
[2019-03-15 03:24] LABS: Basophils % (A) 0 %; Eosinophils # (A) 0.3 k/uL (0-0.7); Eosinophils % (A) 4 %; HCT 31.1 % (39.0-53.0); Lymphocytes # (A) 0.9 k/uL (1.0-4.8); Lymphocytes % (A) 11 %; MCH 33.3 pg (25.0-35.0); MCHC 32.2 g/dL (31.0-37.0); MCV 103.4 fL (80.0-100.0); Macrocytosis Moderate; Mean Platelet Volume 9.1; Monocytes # (A) 0.4 k/uL (0-1.0); Monocytes % (A) 5 %; Neutrophils % (A) 79 %; Platelet Count 190 k/uL (150-450); RBC 3.01 m/uL (4.30-5.90); RDW 15.4 % (11.5-15.5); WBC 7.7 k/uL (3.8-10.6)
--- NOTE | 2019-03-15 03:31 | XR ---
EXAMINATION TYPE: XR chest 2V DATE OF EXAM: 03/15/2019 COMPARISON: 02/26/2019 HISTORY: Short of breath TECHNIQUE: 2 views FINDINGS: There is blunting left costophrenic angle. There is no gross heart failure. Heart appears b orderline enlarged. There is mild infiltrate left lower lobe. Right lung is fairly clear. IMPRESSION: Left pleural effusion and mild left lower lobe infiltrate improved compared to last exam. Right pleural effusion improved compared to last exam. No heart failure.
[2019-03-15 03:36] LABS: Prothrombin Time 10.7 sec (9.0-12.0)
[2019-03-15 03:38] LABS: Albumin 3.7 g/dL (3.5-5.0); Calcium 9.5 mg/dL (8.4-10.2); Total Bilirubin 0.7 mg/dL (0.2-1.3); Total Protein 7.2 g/dL (6.3-8.2)
[2019-03-15 04:04] LABS: Glucose,Whole Blood 63 mg/dL (75-99)
[2019-03-15 04:31] LABS: Glucose,Whole Blood 70 mg/dL (75-99)
[2019-03-15 04:43] LABS: Potassium 3.7 mmol/L (3.5-5.1)
[2019-03-15] MEDS ORDERED: FUROSEMIDE 10 MG/ML 4 ML VIAL IV STA (05:12)
[2019-03-15] MEDS ORDERED: NALOXONE 0.4 MG/ML 1 ML VIAL IV PRN (05:19)
[2019-03-15] MEDS: FENOFIBRATE 160 MG TAB PO SCH (08:17)
[2019-03-15] MEDS: METOPROLOL TARTRATE 50 MG TAB PO SCH ×2 (08:17→22:34)
[2019-03-15] MEDS: ASPIRIN 81 MG PO SCH (08:18)
[2019-03-15] MEDS: CALCIUM ACETATE 667 MG TAB PO SCH ×3 (08:18→17:37)
[2019-03-15] MEDS: FUROSEMIDE 40 MG TAB PO SCH ×2 (08:18→22:35)
[2019-03-15] MEDS: ENOXAPARIN 30 MG/0.3 ML SYRINGE SQ SCH (08:19)
[2019-03-15] MEDS: PANTOPRAZOLE 40 MG TABLET PO SCH (08:19)
[2019-03-15] MEDS: SYMBICORT 160-4.5 MCG INHALER INHALATION SCH ×2 (08:55→20:41)
--- NOTE | 2019-03-15 10:02 | P.HPIM ---
History of Present Illness this is a pleasant 68 years old male with past medical history of end-stage renal disease on hemodialysis, atrial fibrillation, heart failure, diabetes mellitus, hypertension, osteoarthritis, rheumatoid arthritis, seizure disorder, diabetic neuropathy, legally blind, history of endocarditis chronic back pain.history of depression and anxiety. Presents because of right leg ulcer of one week duration. Patient says this started as blisters. Ruptured and started losing since then. He has bilateral reddish discoloration he has chest pain or dyspnea. No coughing. No abdominal pain. No nausea vomiting vitals stable, labs are reviewed.labs reviewed and they looked unremarkable. Patient has chronically elevated troponin at the same level of 0.04 which is similar to baseline. His troponin in 07/2018 was 0.042 and in 03/2016 was 0.08. EKG showing atrial fibrillation with heart rate of 64 chest x-ray:improved left pleural effusion and infiltrate, improved right pleural effusion on admission patient received 1 dose of IV Lasix Review of Systems CONSTITUTIONAL: No fever, no malaise, no fatigue. HEENT: No recent visual problems or hearing problems. Denied any sore throat. CARDIOVASCULAR: No orthopnea, PND, no palpitations, no syncope. PULMONARY: No shortness of breath, no cough, no hemoptysis. GASTROINTESTINAL: No diarrhea, no nausea, no vomiting, no abdominal pain. Normoactive bowel sounds. NEUROLOGICAL: No headaches, no weakness, no numbness. HEMATOLOGICAL: Denies any bleeding or petechiae. GENITOURINARY: Denies any burning micturition, frequency, or urgency. MUSCULOSKELETAL/RHEUMATOLOGICAL: Denies any joint pain, swelling, or any muscle pain. ENDOCRINE: Denies any polyuria or polydipsia. Past Medical History Past Medical History: Atrial Fibrillation, Asthma, Heart Failure, Diabetes Mellitus, Dialysis, Eye Disorder, GERD/Reflux, Hypertension, Osteoarthritis (OA), Pneumonia, Renal Disease, Rheumatoid Arthritis (RA), Seizure Disorder Additional Past Medical History / Comment(s): ESRD with hemodialysis, mineral bone disease, chronic anemia, IDDM type II, diabetic retinopathy-"legally blind", chronic neuropathy occasionally in toes bilateral feet and left leg, bilateral lower leg edema, cellulitis bilateral lower legs, past leg/foot wounds and currently has left medial leg wounds that have scabbed over and no longer goes to [facility], paroxysmal Afib, 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 History of Any Multi-Drug Resistant Organisms: None Reported Past Surgical History: Hernia Repair, Orthopedic Surgery Additional Past Surgical History / Comment(s): Bilateral cataract surgery, insertion dialysis catheter left arm then had a procedure done to dialysis catheter at [facility]-cannot recall exactly what was done, PICC line insertion/removed, bilateral inguinal hernina repairs, colonoscopy/polypectomy, R shoulder rotator cuff repair, debridements bilateral feet. Past Anesthesia/Blood Transfusion Reactions: No Reported Reaction Additional Past Anesthesia/Blood Transfusion Reaction / Comment(s): Pt received blood in past without reaction. Past Psychological History: Anxiety, Depression Smoking Status: Former smoker Past Alcohol Use History: None Reported Past Drug Use History: None Reported - Past Family History Mother Family Medical History: Diabetes Mellitus Father Family Medical History: Cancer Additional Family Medical History / Comment(s): Metastatic cancer. Pt cannot recall primary. Medications and Allergies Home Medications Medication Instructions Recorded Confirmed Type Etanercept [Enbrel] 50 mg SQ LUU 06/12/14 02/26/19 History Furosemide [Lasix] 40 mg PO BID 06/12/14 02/26/19 History NIFEdipine [NIFEdipine ER] 60 mg PO DAILY 06/12/14 02/26/19 History Insulin Glargine [Lantus] 70 unit SQ HS 05/05/18 02/26/19 History Aspirin EC [Ecotrin Low Dose] 81 mg PO DAILY 07/31/18 02/26/19 History Gemfibrozil [Lopid] 600 mg PO BID 07/31/18 02/26/19 History Vit C/E/Zn/Coppr/Lutein/Zeaxan 1 cap PO BID 07/31/18 02/26/19 History [Preservision Areds 2 Softgel] Budesonide-Formot 160-4.5 Mcg 2 puff INHALATION RT-BID 02/26/19 02/26/19 History [Symbicort 160-4.5 Mcg Inhaler] Calcium Acetate [PhosLo] 2,001 mg PO TID-W/MEALS 02/26/19 02/26/19 History Magnebind 250/300mg 1 tab PO BID 02/26/19 02/26/19 History Metoprolol Tartrate [Lopressor] 50 mg PO BID 02/26/19 02/26/19 History Omeprazole 40 mg PO DAILY 02/26/19 02/26/19 History Prorenal + D 1 tab PO DAILY 02/26/19 02/26/19 History levOCARNitine [Levocarnitine] 330 mg PO TID-W/MEALS 02/26/19 02/26/19 History Allergies Allergy/AdvReac Type Severity Reaction Status Date / Time sulfamethoxazole AdvReac Unknown Nausea & Verified 03/15/19 02:33 [From Bactrim] Vomiting trimethoprim [From Bactrim] AdvReac Unknown Nausea & Verified 03/15/19 02:33 Vomiting Physical Exam Vitals: Vital Signs Temp Pulse Pulse Resp BP BP Pulse Ox 03/15/19 07:00 98 F 64 16 147/68 95 03/15/19 05:32 69 18 156/91 97 03/15/19 02:30 98.3 F 64 20 127/61 96 Intake and Output 03/14/19 03/15/19 03/15/19 22:59 06:59 14:59 Intake Total 296 Balance 296 Intake: Oral 296 Other: Weight 122.47 kg GENERAL: The patient is alert and oriented x3, not in any acute distress. Well developed, well nourished. HEENT: Pupils are round and equally reacting to light. EOMI. No scleral icterus. No conjunctival pallor. Normocephalic, atraumatic. No pharyngeal erythema. No thyromegaly. CARDIOVASCULAR: S1 and S2 present. No murmurs, rubs, or gallops. PULMONARY: Chest is clear to auscultation, no wheezing or crackles. ABDOMEN: Soft, nontender, nondistended, normoactive bowel sounds. No palpable organomegaly. MUSCULOSKELETAL: No joint swelling or deformity. -EXTREMITIES: No cyanosis, clubbing, or pedal edema. right leg ulcers with serosanguineous oozing, About 3 inches in diameter NEUROLOGICAL: Gross neurological examination did not reveal any focal deficits. SKIN: No rashes. No petechiae Results CBC & Chem 7: 03/15/19 03:08 03/15/19 03:08 Labs: Abnormal Lab Results - Last 24 Hours (Table) 03/15/19 03/15/19 03/15/19 Range/Units 03:08 03:08 03:08 RBC 3.01 L (4.30-5.90) m/uL Hgb 10.0 L (13.0-17.5) gm/dL Hct 31.1 L (39.0-53.0) % MCV 103.4 H (80.0-100.0) fL Lymphocytes # 0.9 L (1.0-4.8) k/uL Chloride 97 L (98-107) mmol/L Carbon Dioxide 31 H (22-30) mmol/L BUN 33 H (9-20) mg/dL Creatinine 4.24 H (0.66-1.25) mg/dL POC Glucose (mg/dL) (75-99) mg/dL Troponin I 0.043 H* (0.000-0.034) ng/mL 03/15/19 03/15/19 Range/Units 04:02 04:27 RBC (4.30-5.90) m/uL Hgb (13.0-17.5) gm/dL Hct (39.0-53.0) % MCV (80.0-100.0) fL Lymphocytes # (1.0-4.8) k/uL Chloride (98-107) mmol/L Carbon Dioxide (22-30) mmol/L BUN (9-20) mg/dL Creatinine (0.66-1.25) mg/dL POC Glucose (mg/dL) 63 L 70 L (75-99) mg/dL Troponin I (0.000-0.034) ng/mL Assessment and Plan Assessment: right leg ulcer End-stage renal disease on hemodialysis Chronic atrial fibrillation. With chronically elevated troponin. Diabetes mellitus Diabetic neuropathy Hypertension Osteoarthritis Rheumatoid arthritis Seizure disorder Clinical guidelines History of endocarditis and leg cellulitis Chronic back pain. History of depression, anxiety no connective tissue Plan: this is a pleasant 68 years old male who presents with orthopnea and increased leg swelling. His hemodialysis patient. We'll consult nephrology for dialysis.account consult infectious disease as well. Labs and medication were reviewed.. Continue same treatment. Continue with symptomatic treatment. Resume home medication. Monitor lytes and vitals. DVT and GI prophylaxis. Further recommendations of the clinical course of the patient DVT prophylaxis: Subcutaneous Lovenox GI Prophylaxis: Pepcid PT/OT: Pending Prognosis is guarded
[2019-03-15 10:49] LABS: Glucose,Whole Blood 184 mg/dL (75-99)
[2019-03-15] MEDS ORDERED: FAMOTIDINE 20 MG/2 ML VIAL IV SCH (11:00)
--- NOTE | 2019-03-15 11:25 | US ---
EXAMINATION TYPE: US venous doppler duplex LE DATE OF EXAM: 03/15/2019 11:08 AM COMPARISON: Previous study dated 10/26/2015. CLINICAL HISTORY: R/O DVT. Bilateral lower extremity leg ulcers, diabetic SIDE PERFORMED: Bilateral TECHNIQUE: The lower extremity deep venous system is examined utilizing real time linear array sonog mirtha with graded compression, Doppler sonography and color-flow sonography. VESSELS IMAGED: Common Femoral Vein Deep Femoral Vein Greater Saphenous Vein * Femoral Vein Popliteal Vein Small Saphenous Vein * Proximal Calf Veins (* superficial vessels) No popliteal fossa lesion is seen. Right Leg: Negative for DVT Left Leg: Negative for DVT IMPRESSION: THIS EXAMINATION IS NEGATIVE FOR DVT WITHIN BOTH LEGS.
--- NOTE | 2019-03-15 11:36 | CONS ---
CONSULTATION REASON FOR CONSULT: End-stage renal disease. HISTORY OF PRESENT ILLNESS: Patient is a 68-year-old male with end-stage renal disease on hemodialysis on a Sunday, Sunday, Sunday schedule. Was admitted to the hospital with bleeding and pain on his right leg. He has had blisters there and this has been going on for about 3-4 months now. No history of fever, chills, nausea, vomiting, abdominal pain or diarrhea. The patient has been compliant with his outpatient hemodialysis treatments. PAST MEDICAL HISTORY: Atrial fibrillation, end-stage renal disease, type 2 diabetes, asthma, hypertension, osteoarthritis, history of pneumonia, rheumatoid arthritis, history of seizure disorder, gastroesophageal reflux disease, history of endocarditis, CKD mineral bone disorder, anemia of chronic disease. PAST SURGICAL HISTORY: Cataract surgery, dialysis catheter placement, inguinal hernia repair, colonoscopy, PICC line placement, AV fistula, polypectomy, debridements, bilateral feet, multiple admissions previously for wound care. SOCIAL HISTORY: The patient is a former smoker. No history of drug abuse or alcohol abuse. MEDICATIONS: Medications prior to admission include Enbrel, Lasix, nifedipine, Lantus, Lopid, PhosLo, MagneBind, Lopressor, omeprazole, ProRenal vitamins, levocarnitine. ALLERGIES: Include BACTRIM causes nausea and vomiting. EXAMINATION: Patient is comfortable, awake, alert, oriented x3, not in any acute distress. Blood pressure is 147/68, heart rate 64 per minute, patient is afebrile. Examination of the heart S1, S2. Examination of the lungs, bilateral breath sounds are heard. Abdomen is soft, nontender, obese. Examination of lower extremities shows bleeding from a superficial ulcer on the right lower extremity with chronic skin changes. Edema is noted bilaterally about 2+. [employer] exam grossly intact. LAB: Show sodium 140, potassium 3.7, chloride 97, BUN 33, creatinine 4.24, hemoglobin 10.0. ASSESSMENT: 1. End-stage renal disease, on hemodialysis on a Sunday, Sunday, Sunday schedule. 2. Lower extremity cellulitis blisters with some bleeding noted, currently maintained on antibiotics. 3. Mild volume overload. 4. Hypertension. 5. Anemia of chronic disease. 6. Coronary artery disease. 7. History of atrial fibrillation. PLAN: Hemodialysis on Sunday. No indication for hemodialysis today. Chest x-ray does not show any significant pulmonary vascular congestion. Maintain patient on his home phosphate binders. MMODL / IJN: [id number] /
[2019-03-15] MEDS: PRENATAL VIT-IRON-FOLIC ACID 1 EACH CAP PO SCH (11:57)
[2019-03-15] MEDS: CALCIUM CARB-MAG CARB-FOLIC 1 EACH TAB PO SCH ×2 (11:57→22:35)
[2019-03-15] MEDS: VIT A,C & E-LUTEIN-MINERALS 1 EACH TAB PO SCH (11:57)
[2019-03-15] MEDS: levOCARNitine (WITH SUGAR) 100 MG/ML BOTTLE PO SCH ×3 (11:58→17:58)
[2019-03-15] MEDS ORDERED: INSULIN DETEMIR (LEVEMIR) 100 UNIT/ML SYR SQ SCH (21:00)
[2019-03-15 21:11] LABS: Glucose,Whole Blood 241 mg/dL (75-99)
[2019-03-16] MEDS ORDERED: ARTIFICIAL TEARS-HYPROMELLOSE DROPS 15 ML BTL BOTH EYES PRN (00:30)
[2019-03-16 07:20] LABS: Glucose,Whole Blood 100 mg/dL (75-99)
[2019-03-16] MEDS: FUROSEMIDE 40 MG TAB PO SCH ×2 (07:26→21:02)
[2019-03-16] MEDS: CALCIUM ACETATE 667 MG TAB PO SCH ×3 (07:26→17:28)
[2019-03-16] MEDS: METOPROLOL TARTRATE 50 MG TAB PO SCH ×2 (07:26→21:02)
[2019-03-16] MEDS: ASPIRIN 81 MG PO SCH (07:27)
[2019-03-16] MEDS: FENOFIBRATE 160 MG TAB PO SCH (07:27)
[2019-03-16] MEDS: PANTOPRAZOLE 40 MG TABLET PO SCH (07:27)
[2019-03-16] MEDS: ENOXAPARIN 30 MG/0.3 ML SYRINGE SQ SCH (07:28)
[2019-03-16] MEDS: PRENATAL VIT-IRON-FOLIC ACID 1 EACH CAP PO SCH (07:28)
[2019-03-16] MEDS: VIT A,C & E-LUTEIN-MINERALS 1 EACH TAB PO SCH (07:28)
[2019-03-16] MEDS: CALCIUM CARB-MAG CARB-FOLIC 1 EACH TAB PO SCH ×2 (07:28→21:02)
[2019-03-16] MEDS ORDERED: ETANERCEPT 50 MG SQ SCH (09:00)
[2019-03-16] MEDS: levOCARNitine (WITH SUGAR) 100 MG/ML BOTTLE PO SCH ×3 (09:05→17:29)
[2019-03-16] MEDS: SYMBICORT 160-4.5 MCG INHALER INHALATION SCH ×2 (09:55→19:43)
[2019-03-16 11:56] LABS: Glucose,Whole Blood 127 mg/dL (75-99)
--- NOTE | 2019-03-16 13:33 | P.PN ---
Subjective this is a pleasant 68 years old male with past medical history of end-stage renal disease on hemodialysis, atrial fibrillation, heart failure, diabetes mellitus, hypertension, osteoarthritis, rheumatoid arthritis, seizure disorder, diabetic neuropathy, legally blind, history of endocarditis chronic back pain.history of depression and anxiety. Presents because of right leg ulcer of one week duration. Patient says this started as blisters. Ruptured and started losing since then. He has bilateral reddish discoloration he has chest pain or dyspnea. No coughing. No abdominal pain. No nausea vomiting vitals stable, labs are reviewed.labs reviewed and they looked unremarkable. Patient has chronically elevated troponin at the same level of 0.04 which is similar to baseline. His troponin in 07/2018 was 0.042 and in 03/2016 was 0.08. EKG showing atrial fibrillation with heart rate of 64 chest x-ray:improved left pleural effusion and infiltrate, improved right pleural effusion on admission patient received 1 dose of IV Lasix 03/16/2019 Patient is being evaluated by telecommunications support, no need for extra hemodialysis sessions. Patient is fully awake and oriented with no chest pain or dyspnea. Infectious disease are in the process of evaluating patient leg ulcer.vitals are stable and sugar is controlled.venous Doppler is negative for DVT Objective - Vital Signs Vital signs: Vital Signs Temp 97.8 F 03/16/19 06:45 Pulse 57 L 03/16/19 06:45 Resp 16 03/16/19 06:45 BP 149/69 03/16/19 06:45 Pulse Ox 100 03/16/19 06:45 Intake & Output 03/15/19 03/16/19 03/16/19 18:59 06:59 18:59 Intake Total 1008 540 Balance 1008 540 Weight 123.7 kg Intake: Oral 1008 540 Other: Voiding Method Toilet Toilet # Voids 1 1 - Exam GENERAL: The patient is alert and oriented x3, not in any acute distress. Well developed, well nourished. HEENT: Pupils are round and equally reacting to light. EOMI. No scleral icterus. No conjunctival pallor. Normocephalic, atraumatic. No pharyngeal erythema. No thyromegaly. CARDIOVASCULAR: S1 and S2 present. No murmurs, rubs, or gallops. PULMONARY: Chest is clear to auscultation, no wheezing or crackles. ABDOMEN: Soft, nontender, nondistended, normoactive bowel sounds. No palpable organomegaly. MUSCULOSKELETAL: No joint swelling or deformity. -EXTREMITIES: No cyanosis, clubbing, or pedal edema. right leg ulcers with serosanguineous oozing, About 3 inches in diameter NEUROLOGICAL: Gross neurological examination did not reveal any focal deficits. SKIN: No rashes. No petechiae - Labs CBC & Chem 7: 03/15/19 03:08 03/15/19 03:08 Labs: Abnormal Lab Results - Last 24 Hours (Table) 03/15/19 03/16/19 03/16/19 Range/Units 20:55 06:44 11:39 POC Glucose (mg/dL) 241 H 100 H 127 H (75-99) mg/dL Microbiology - Last 24 Hours (Table) 03/15/19 03:08 Blood Culture - Preliminary Blood No Growth after 24 hours Assessment and Plan Assessment: right leg ulcer End-stage renal disease on hemodialysis Chronic atrial fibrillation. With chronically elevated troponin. Diabetes mellitus Diabetic neuropathy Hypertension Osteoarthritis Rheumatoid arthritis Seizure disorder Clinical guidelines History of endocarditis and leg cellulitis Chronic back pain. History of depression, anxiety no connective tissue Plan: this is a pleasant 68 years old male who presents with orthopnea and increased leg swelling. His hemodialysis patient. We'll consult nephrology for dialysis.account consult infectious disease as well. Labs and medication were reviewed.. Continue same treatment. Continue with symptomatic treatment. Resume home medication. Monitor lytes and vitals. DVT and GI prophylaxis. Further recommendations of the clinical course of the patient DVT prophylaxis: Subcutaneous Lovenox GI Prophylaxis: Pepcid PT/OT: Pending Prognosis is guarded
[2019-03-16 17:11] LABS: Glucose,Whole Blood 137 mg/dL (75-99)
--- NOTE | 2019-03-16 19:26 | PN ---
PROGRESS NOTE The patient is seen for followup for end-stage renal disease. He was admitted to the hospital with a bleeding blister on his right lower extremity. No history of fevers or chills. The patient is maintained on a Sunday, Sunday, Sunday schedule for dialysis. The patient is scheduled for hemodialysis in a.m. On examination, patient is comfortable. Blood pressure is 107/56, heart rate 51 per minute, patient is afebrile. Examination of the heart S1, S2. Examination of the lungs, bilateral breath sounds are heard. Abdomen is soft, nontender. Examination of lower extremities shows lower extremities to be wrapped. [employer] exam grossly intact. LABS: From yesterday show potassium of 3.7, sodium 140. ASSESSMENT: 1. End-stage renal disease, on hemodialysis on a Sunday, Sunday, Sunday schedule. Scheduled for hemodialysis in a.m. 2. Volume overload. We will try for about 4 L in a.m. 4 L of ultrafiltration with hemodialysis in a.m. 3. Hypertension currently controlled. 4. Chronic kidney disease mineral bone disorder. 5. History of atrial fibrillation. PLAN: Hemodialysis in a.m. Possible discharge tomorrow after dialysis. We will try to increase ultrafiltration as outpatient at the dialysis unit. MMODL / IJN: [id number] /
[2019-03-16 20:50] LABS: Glucose,Whole Blood 196 mg/dL (75-99)
[2019-03-16] MEDS: INSULIN DETEMIR (LEVEMIR) 100 UNIT/ML SYR SQ SCH (21:02)
[2019-03-17 07:03] LABS: Glucose,Whole Blood 140 mg/dL (75-99)
[2019-03-17] MEDS: PANTOPRAZOLE 40 MG TABLET PO SCH (08:06)
[2019-03-17] MEDS: FENOFIBRATE 160 MG TAB PO SCH (08:06)
[2019-03-17] MEDS: ENOXAPARIN 30 MG/0.3 ML SYRINGE SQ SCH (08:06)
[2019-03-17] MEDS: ASPIRIN 81 MG PO SCH (08:07)
[2019-03-17] MEDS: levOCARNitine (WITH SUGAR) 100 MG/ML BOTTLE PO SCH ×3 (08:07→18:08)
[2019-03-17] MEDS: CALCIUM ACETATE 667 MG TAB PO SCH ×3 (08:07→18:08)
[2019-03-17] MEDS: FUROSEMIDE 40 MG TAB PO SCH ×2 (08:07→20:54)
[2019-03-17] MEDS: METOPROLOL TARTRATE 50 MG TAB PO SCH ×2 (08:07→20:54)
[2019-03-17] MEDS: PRENATAL VIT-IRON-FOLIC ACID 1 EACH CAP PO SCH (08:09)
[2019-03-17] MEDS: CALCIUM CARB-MAG CARB-FOLIC 1 EACH TAB PO SCH ×2 (08:09→20:54)
[2019-03-17] MEDS: VIT A,C & E-LUTEIN-MINERALS 1 EACH TAB PO SCH (08:09)
[2019-03-17] MEDS: SYMBICORT 160-4.5 MCG INHALER INHALATION SCH ×2 (08:53→19:24)
--- NOTE | 2019-03-17 10:39 | P.PN ---
Subjective Patient is seen in follow-up for end-stage renal disease. He is maintained on hemodialysis on Sunday schedule. Currently sitting up in bed. Hemodynamically stable. Legs are wrapped. Denies any drainage. Vital signs are stable. General: The patient appeared well nourished and normally developed. HEENT: Head exam is unremarkable. Neck is without jugular venous distension. LUNGS: Lungs are clear to auscultation and percussion. Breath sounds decreased. HEART: Rate and Rhythm are regular. First and second heart sounds normal. No murmurs, rubs or gallops. ABDOMEN: Abdominal exam reveals normal bowel sounds. Non-tender and non- distended. No evidence of peritonitis. EXTREMITITES: 2+ edema. Wrapped. No obvious drainage noted. Objective - Vital Signs Vital signs: Vital Signs Temp 97.6 F 03/17/19 07:00 Pulse 63 03/17/19 07:00 Resp 16 03/17/19 07:00 BP 152/68 03/17/19 07:00 Pulse Ox 99 03/17/19 07:00 Intake & Output 03/16/19 03/17/19 03/17/19 18:59 06:59 18:59 Intake Total 540 620 Balance 540 620 Weight 124.3 kg Intake: Oral 540 620 Other: Voiding Method Toilet Toilet # Voids 4 0 - Labs CBC & Chem 7: 03/15/19 03:08 03/15/19 03:08 Labs: Abnormal Lab Results - Last 24 Hours (Table) 03/16/19 03/16/19 03/16/19 Range/Units 11:39 16:56 20:39 POC Glucose (mg/dL) 127 H 137 H 196 H (75-99) mg/dL 03/17/19 Range/Units 06:52 POC Glucose (mg/dL) 140 H (75-99) mg/dL Microbiology - Last 24 Hours (Table) 03/15/19 03:08 Blood Culture - Preliminary Blood No Growth after 48 hours Assessment and Plan Plan: Assessment: 1. End-stage renal disease maintained on hemodialysis on Sunday schedule for left upper extremity AV fistula. 2. Hypertension with chronic kidney disease. 3. Insulin-dependent diabetes mellitus. 4. Chronic kidney disease mineral bone disease maintained on phosphate binders. 5. Lower extremity ulcer. Infectious disease following. Plan: Hemodialysis today.
[2019-03-17 12:12] LABS: Glucose,Whole Blood 110 mg/dL (75-99)
[2019-03-17] MEDS ORDERED: TEMAZEPAM 15 MG CAP PO PRN (15:43)
[2019-03-17] MEDS ORDERED: HYDROcodone/APAP 5-325MG 1 EACH TAB PO PRN (15:44)
[2019-03-17] MEDS ORDERED: PIPERACILLIN-TAZOBACTAM 3.375 GM in SODIUM CHLORIDE 0.9% 100 ML IVPB SCH (16:00)
[2019-03-17 17:08] LABS: Glucose,Whole Blood 191 mg/dL (75-99)
--- NOTE | 2019-03-17 18:17 | PN ---
PROGRESS NOTE DATE OF SERVICE: 03/17/2019 This 68-year-old gentleman admitted with significant bilateral leg ulceration, right more than the left had also end stage renal disease. The patient is receiving hemodialysis. Patient previously had a left foot ulcer and was thought to have left infrapopliteal artery disease as well. The patient being closely monitored at this time. Hemodialysis is being continued. There is no history of any fever, rigor or chills. PAST MEDICAL HISTORY: Reviewed. REVIEW OF SYSTEMS: Cardiovascular system: No angina or palpitations. RESPIRATORY: As mentioned earlier. GI no nausea or vomiting. no dysuria or hematuria. Nervous system: No numbness or weakness. CURRENT MEDICATIONS: Reviewed and include: 1. Tylenol 650 q.6h p.r.n. 2. Aspirin 81 mg. 3. Symbicort 160/4.5 two puffs b.i.d. 4. Magnavite 400 mg b.i.d. 5. PhosLo 2001 mg p.o. t.i.d. 6. Lovenox 30 mg subcu daily. 7. Lofibra. 8. Lasix. 9. Levemir. 10.Lopressor. 11.I-Fady. 12.Narcan. 13.Enbrel. 14.Protonix. 15.Doses and schedules reviewed. PHYSICAL EXAMINATION: Alert and oriented times three. Pulse 50, blood pressure 130/69, respiration 18, temperature 98.4, pulse ox 99% on room air. HEENT is conjunctivae normal. NECK: No JVD. CARDIOVASCULAR: S1, S2 muffled. RESPIRATIONS: Breath sounds diminished in the bases. A few scattered rhonchi and crackles. ABDOMEN: Soft, nontender. No mass palpable. LEGS: Significant bilateral ulcerations present, right more the left. Pulses diminished bilaterally. NERVOUS SYSTEM: Higher functions as mentioned earlier. Moves all four limbs. CENTRAL NERVOUS SYSTEM: No focal deficits. LYMPHATICS: No lymph nodes palpable in the neck, axilla or groin. SKIN: No ulcer, no rash and no bleeding. JOINTS: No active deforming arthropathy. LABS: WBC 7.2, hemoglobin is 10, creatinine is 4.24. Glucose noted. Troponin 0.043. ASSESSMENT: 1. Bilateral leg ulcers, right more the left. 2. End-stage renal disease, chronic kidney disease and failure stage IV, on hemodialysis. 3. Chronic atrial fibrillation. 4. Chronically elevated troponin. 5. Diabetes mellitus type 2. 6. Diabetic peripheral neuropathy. 7. Hypertension. 8. Degenerative joint disease. 9. History of rheumatoid arthritis. 10.History of seizure disorder. 11.History of leg cellulitis. 12.History of chronic back pain. 13.History of depression. 14.History of asthma. 15.History of degenerative joint disease. 16.History of rheumatoid arthritis. 17.History of seizure disorder. 18.History of legal blindness. 19.Chronic peripheral neuropathy secondary to diabetes type 2. 20.Possible peripheral artery disease, left infrapopliteal area previously. 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 22.History of hernia repair. 23.History of anxiety/depression. 24.Obesity with body mass of 34.3. 25.Remote history of nicotine dependence. RECOMMENDATIONS AND DISCUSSION: In this 68-year-old gentleman who presented with multiple complex medical issues as mentioned earlier, at this time, I recommend continue the current medications, management and symptomatic treatment. Otherwise, I would recommend local cultures. Infectious disease evaluation. Vascular surgery evaluation. Empiric antibiotics. The patient was started on vancomycin. I will add Zosyn to the current regimen. Monitor blood sugars closely. Accu-Cheks a.c. and at bedtime. Resume the home medications. Guarded prognosis because of multiple complex medical issues. further recommendations to follow. Copy of dictation being forwarded to Dr. Rosen who is the primary physician. FIDENCIO / ARNULFO: [id number] / FELIPE
[2019-03-17 20:47] LABS: Glucose,Whole Blood 267 mg/dL (75-99)
[2019-03-17] MEDS: HEPARIN SODIUM,PORCINE 5,000 UNIT/ML 1 ML VIAL SQ SCH (20:53)
[2019-03-17] MEDS: INSULIN DETEMIR (LEVEMIR) 100 UNIT/ML SYR SQ SCH (20:54)
--- NOTE | 2019-03-17 23:09 | P.CONS ---
History of Present Illness - Reason for Consult Consult date: 03/17/19 - Chief Complaint weeping from the lower extremities - History of Present Illness 68-year-old man who is a history of chronic venous stasis with recurrent ulcerations, venous insufficiency, chronic kidney disease and chronic congestive heart failure systolic type presents to hospital with worsening of his lower extremity edema that had been worsening over about 4 weeks. Apparently he is suddenly worsened he developed multiple open ulcerations that were draining he had some increasing edema to his right leg he also became more short of breath and presented to the emergency room. With all these features she was brought into hospital for further evaluation with multiple open ulcerations to consult was requested. The patient does not have much pain at the site has been concerned because her so much drainage. He has not had fever chills or rigors but does not feel well overall. Review of Systems HEENT:Denies headache or acute visual change. Denies sinus or mouth discomforts. Denies neck stiffness or pain. Denies significant oral cavity pain. Denies difficulty on swallowing. Lungs: worsening shortness of breath, dyspnea with exertion but denies sigs Cardiovascular: he has shortness of breath dyspnea with no syncope Gastrointestinal:Denies nausea, vomiting, diarrhea, constipation, hematemesis, melena, hematochezia. No no significant change of bowel habit noticed. Musculoskeletal: denies significant myalgias or arthralgias. No new joint swelling. Denies new back pain. Skin: Denies new rash or lesions. No new ulcers or wounds are related.. Neuro: Denies headache or visual change. Denies any new onset weakness or difficulty with ambulation. Denies falls or seizures. Psychiatric:Denies anxiety or depression. Endocrine: he has fatigue with weight gain Past Medical History Past Medical History: Atrial Fibrillation, Asthma, Heart Failure, Diabetes Mellitus, Dialysis, Eye Disorder, GERD/Reflux, Hypertension, Osteoarthritis (OA), Pneumonia, Renal Disease, Rheumatoid Arthritis (RA), Seizure Disorder Additional Past Medical History / Comment(s): ESRD with hemodialysis, mineral bone disease, chronic anemia, IDDM type II, diabetic retinopathy-"legally blind", chronic neuropathy occasionally in toes bilateral feet and left leg, bilateral lower leg edema, cellulitis bilateral lower legs, past leg/foot wounds and currently has left medial leg wounds that have scabbed over and no longer goes to [facility], paroxysmal Afib, 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 History of Any Multi-Drug Resistant Organisms: None Reported Past Surgical History: Hernia Repair, Orthopedic Surgery Additional Past Surgical History / Comment(s): Bilateral cataract surgery, insertion dialysis catheter left arm then had a procedure done to dialysis catheter at [facility]-cannot recall exactly what was done, PICC line insertion/removed, bilateral inguinal hernina repairs, colonoscopy/polypectomy, R shoulder rotator cuff repair, debridements bilateral feet. Past Anesthesia/Blood Transfusion Reactions: No Reported Reaction Additional Past Anesthesia/Blood Transfusion Reaction / Comm: Pt received blood in past without reaction. Past Psychological History: Anxiety, Depression Additional Psychological History / Comment(s): lives with his and f amily home. 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 No travel since his days. no animals in the home Smoking Status: Former smoker Past Alcohol Use History: None Reported Past Drug Use History: None Reported - Past Family History Mother Family Medical History: Diabetes Mellitus Father Family Medical History: Cancer Additional Family Medical History / Comment(s): Metastatic cancer. Pt cannot recall primary. Medications and Allergies Home Medications and Allergies Comment(s): Laboratory Results WBC 7.7 k/uL (3.8-10.6) 03/15/19 03:08 RBC 3.01 m/uL (4.30-5.90) L 03/15/19 03:08 Hgb 10.0 gm/dL (13.0-17.5) L 03/15/19 03:08 Hct 31.1 % (39.0-53.0) L 03/15/19 03:08 MCV 103.4 fL (80.0-100.0) H 03/15/19 03:08 MCH 33.3 pg (25.0-35.0) 03/15/19 03:08 MCHC 32.2 g/dL (31.0-37.0) 03/15/19 03:08 RDW 15.4 % (11.5-15.5) 03/15/19 03:08 Plt Count 190 k/uL (150-450) 03/15/19 03:08 Neutrophils % 79 % 03/15/19 03:08 Lymphocytes % 11 % 03/15/19 03:08 Monocytes % 5 % 03/15/19 03:08 Eosinophils % 4 % 03/15/19 03:08 Basophils % 0 % 03/15/19 03:08 Neutrophils # 6.0 k/uL (1.3-7.7) 03/15/19 03:08 Lymphocytes # 0.9 k/uL (1.0-4.8) L 03/15/19 03:08 Monocytes # 0.4 k/uL (0-1.0) 03/15/19 03:08 Eosinophils # 0.3 k/uL (0-0.7) 03/15/19 03:08 Basophils # 0.0 k/uL (0-0.2) 03/15/19 03:08 Macrocytosis Moderate 03/15/19 03:08 PT 10.7 sec (9.0-12.0) 03/15/19 03:08 INR 1.0 (<1.2) 03/15/19 03:08 APTT 23.0 sec (22.0-30.0) 03/15/19 03:08 Sodium 140 mmol/L (137-145) 03/15/19 03:08 Potassium 3.7 mmol/L (3.5-5.1) 03/15/19 03:08 Chloride 97 mmol/L (98-107) L 03/15/19 03:08 Carbon Dioxide 31 mmol/L (22-30) H 03/15/19 03:08 Anion Gap 12 mmol/L 03/15/19 03:08 BUN 33 mg/dL (9-20) H 03/15/19 03:08 Creatinine 4.24 mg/dL (0.66-1.25) H 03/15/19 03:08 Est GFR (CKD-EPI)AfAm 15 (>60 ml/min/1.73 sqM) 03/15/19 03:08 Est GFR (CKD-EPI)NonAf 13 (>60 ml/min/1.73 sqM) 03/15/19 03:08 Glucose 78 mg/dL (74-99) 03/15/19 03:08 POC Glucose (mg/dL) 267 mg/dL (75-99) H 03/17/19 20:46 POC Glu Machine Chocolate Molder ID Adrian, Norma 03/17/19 20:46 Calcium 9.5 mg/dL (8.4-10.2) 03/15/19 03:08 Total Bilirubin 0.7 mg/dL (0.2-1.3) 03/15/19 03:08 AST 25 U/L (17-59) 03/15/19 03:08 ALT 17 U/L (4-49) 03/15/19 03:08 Alkaline Phosphatase 104 U/L (38-126) 03/15/19 03:08 Troponin I 0.043 ng/mL (0.000-0.034) H* 03/15/19 03:08 NT-Pro-B Natriuret Pep 41557 pg/mL 03/15/19 03:08 Total Protein 7.2 g/dL (6.3-8.2) 03/15/19 03:08 Albumin 3.7 g/dL (3.5-5.0) 03/15/19 03:08 Microbiology 03/15/19 03:08 Blood Blood Culture - Preliminary No Growth after 48 hours Home Medications Medication Instructions Recorded Confirmed Type Etanercept [Enbrel] 50 mg SQ LUU 06/12/14 03/17/19 History Furosemide [Lasix] 40 mg PO BID 06/12/14 03/17/19 History NIFEdipine [NIFEdipine ER] 60 mg PO DAILY 06/12/14 03/17/19 History Insulin Glargine [Lantus] 70 unit SQ HS 05/05/18 03/17/19 History Aspirin EC [Ecotrin Low Dose] 81 mg PO DAILY 07/31/18 03/17/19 History Gemfibrozil [Lopid] 600 mg PO BID 07/31/18 03/17/19 History Budesonide-Formot 160-4.5 Mcg 2 puff INHALATION RT-BID 02/26/19 03/17/19 History [Symbicort 160-4.5 Mcg Inhaler] Calcium Acetate [PhosLo] 2,001 mg PO TID-W/MEALS 02/26/19 03/17/19 History Magnebind 250/300mg 1 tab PO BID-W/MEALS 02/26/19 03/17/19 History Metoprolol Tartrate [Lopressor] 50 mg PO BID 02/26/19 03/17/19 History Omeprazole 40 mg PO DAILY 02/26/19 03/17/19 History Prorenal + D 1 tab PO DAILY 02/26/19 03/17/19 History levOCARNitine [Levocarnitine] 330 mg PO TID-W/MEALS 02/26/19 03/17/19 History Albuterol Nebulized [Ventolin 2.5 mg INHALATION RT-TID 03/17/19 03/17/19 History Nebulized] Allergies Allergy/AdvReac Type Severity Reaction Status Date / Time sulfamethoxazole AdvReac Unknown Nausea & Verified 03/15/19 02:33 [From Bactrim] Vomiting trimethoprim [From Bactrim] AdvReac Unknown Nausea & Verified 03/15/19 02:33 Vomiting Physical Exam Vitals: Vital Signs Temp Pulse Resp BP Pulse Ox 03/17/19 19:36 97.6 F 54 L 18 133/67 100 03/17/19 15:00 97.5 F L 51 L 15 118/62 96 03/17/19 14:13 98.5 F 50 L 18 135/69 03/17/19 07:00 97.6 F 63 16 152/68 99 03/17/19 00:06 16 03/17/19 00:05 97.8 F 65 18 154/72 100 Intake and Output 03/17/19 03/17/19 03/17/19 06:59 14:59 22:59 Intake Total 1100 60 Balance 1100 60 Intake: Oral 1100 60 Other: Weight 124.3 kg HEENT: Anicteric conjunctiva are pink and moist nasal mucosa grossly intact without significant lesions, there is no thrush. Neck: The neck is supple without significant lymphadenopathy or thyromegaly. Lungs: symmetrical bilateral air entry review expiratory wheezes,no bronchial sounds Heart: irregular positive S4 no new murmur Abdomen: Positive bowel sounds soft and nontender without palpable masses or organomegaly. There was no guarding or rebound. Extremities: The upper extremities have excellent pulses they are symmetric, no significant petechiae or telangiectasia. No splinter hemorrhages were noted.The lower extremities revealed bilateral lower extremity edema right leg greater than the left. There are multiple open blisters and ulcerations secondary be seen especially in the lateral surface of the left leg the dorsum of the left foot and the lateral surface of the right leg. These areas are cleansed with saline and Silvadene dressing is in place with Lg wraps from the foot to the knee bilaterally. Importance of elevation is stated to the patient. Neuro: Awake alert oriented to person place and time. There are no acute new gross focal sensory motor deficits. Results CBC & Chem 7: 03/15/19 03:08 03/15/19 03:08 Labs: Abnormal Lab Results - Last 24 Hours (Table) 03/17/19 03/17/19 03/17/19 Range/Units 06:52 12:01 16:56 POC Glucose (mg/dL) 140 H 110 H 191 H (75-99) mg/dL 03/17/19 Range/Units 20:46 POC Glucose (mg/dL) 267 H (75-99) mg/dL Microbiology - Last 24 Hours (Table) 03/15/19 03:08 Blood Culture - Preliminary Blood No Growth after 48 hours Laboratory Results WBC 7.7 k/uL (3.8-10.6) 03/15/19 03:08 RBC 3.01 m/uL (4.30-5.90) L 03/15/19 03:08 Hgb 10.0 gm/dL (13.0-17.5) L 03/15/19 03:08 Hct 31.1 % (39.0-53.0) L 03/15/19 03:08 MCV 103.4 fL (80.0-100.0) H 03/15/19 03:08 MCH 33.3 pg (25.0-35.0) 03/15/19 03:08 MCHC 32.2 g/dL (31.0-37.0) 03/15/19 03:08 RDW 15.4 % (11.5-15.5) 03/15/19 03:08 Plt Count 190 k/uL (150-450) 03/15/19 03:08 Neutrophils % 79 % 03/15/19 03:08 Lymphocytes % 11 % 03/15/19 03:08 Monocytes % 5 % 03/15/19 03:08 Eosinophils % 4 % 03/15/19 03:08 Basophils % 0 % 03/15/19 03:08 Neutrophils # 6.0 k/uL (1.3-7.7) 03/15/19 03:08 Lymphocytes # 0.9 k/uL (1.0-4.8) L 03/15/19 03:08 Monocytes # 0.4 k/uL (0-1.0) 03/15/19 03:08 Eosinophils # 0.3 k/uL (0-0.7) 03/15/19 03:08 Basophils # 0.0 k/uL (0-0.2) 03/15/19 03:08 Macrocytosis Moderate 03/15/19 03:08 PT 10.7 sec (9.0-12.0) 03/15/19 03:08 INR 1.0 (<1.2) 03/15/19 03:08 APTT 23.0 sec (22.0-30.0) 03/15/19 03:08 Sodium 140 mmol/L (137-145) 03/15/19 03:08 Potassium 3.7 mmol/L (3.5-5.1) 03/15/19 03:08 Chloride 97 mmol/L (98-107) L 03/15/19 03:08 Carbon Dioxide 31 mmol/L (22-30) H 03/15/19 03:08 Anion Gap 12 mmol/L 03/15/19 03:08 BUN 33 mg/dL (9-20) H 03/15/19 03:08 Creatinine 4.24 mg/dL (0.66-1.25) H 03/15/19 03:08 Est GFR (CKD-EPI)AfAm 15 (>60 ml/min/1.73 sqM) 03/15/19 03:08 Est GFR (CKD-EPI)NonAf 13 (>60 ml/min/1.73 sqM) 03/15/19 03:08 Glucose 78 mg/dL (74-99) 03/15/19 03:08 POC Glucose (mg/dL) 267 mg/dL (75-99) H 03/17/19 20:46 POC Glu Machine Chocolate Molder ID Adrian, Norma 03/17/19 20:46 Calcium 9.5 mg/dL (8.4-10.2) 03/15/19 03:08 Total Bilirubin 0.7 mg/dL (0.2-1.3) 03/15/19 03:08 AST 25 U/L (17-59) 03/15/19 03:08 ALT 17 U/L (4-49) 03/15/19 03:08 Alkaline Phosphatase 104 U/L (38-126) 03/15/19 03:08 Troponin I 0.043 ng/mL (0.000-0.034) H* 03/15/19 03:08 NT-Pro-B Natriuret Pep 89596 pg/mL 03/15/19 03:08 Total Protein 7.2 g/dL (6.3-8.2) 03/15/19 03:08 Albumin 3.7 g/dL (3.5-5.0) 03/15/19 03:08 Microbiology 03/15/19 03:08 Blood Blood Culture - Preliminary No Growth after 48 hours Assessment and Plan (1) Bilateral edema of lower extremity Narrative/Plan: 68-year-old male who has multiple medical troubles that include is acute and chronic systolic congestive heart failure, lower extremity edema with venous stasis and difficulties with his volume overload. He now has multiple u lcerations of the lower extremities there to be venous H serious in nature. Wound care with Silvadene wraps with Lg wrap or requested. Elevation of his limbs arrest. Control his underlying medical conditions are helpful. Fluid removal with diuretics, decreased oral intake and elevation of the lungs will be helpful for the process. Current Visit: Yes Status: Acute Code(s): R60.0 - LOCALIZED EDEMA SNOMED Code(s): 096146828 (2) Dyspnea Current Visit: No Status: Acute Code(s): R06.00 - DYSPNEA, UNSPECIFIED SNOMED Code(s): 587813940 (3) End stage renal disease on dialysis due to type 2 diabetes mellitus Current Visit: No Status: Acute Code(s): E11.22 - TYPE 2 DIABETES MELLITUS W DIABETIC CHRONIC KIDNEY DISEASE SNOMED Code(s): 48099144647118 (4) Fluid overload Current Visit: No Status: Acute Code(s): E87.70 - FLUID OVERLOAD, UNSPECIFIED SNOMED Code(s): 80854871
[2019-03-18 05:26] LABS: Glucose,Whole Blood 54 mg/dL (75-99)
[2019-03-18 05:55] LABS: Glucose,Whole Blood 58 mg/dL (75-99)
[2019-03-18 06:06] LABS: Glucose,Whole Blood 99 mg/dL (75-99)
[2019-03-18 07:17] LABS: Glucose,Whole Blood 88 mg/dL (75-99)
[2019-03-18 07:22] LABS: Basophils % (A) 0 %; Eosinophils # (A) 0.3 k/uL (0-0.7); Eosinophils % (A) 4 %; HCT 32.6 % (39.0-53.0); HGB 10.4 gm/dL (13.0-17.5); Hypochromasia Slight; Lymphocytes # (A) 0.9 k/uL (1.0-4.8); Lymphocytes % (A) 12 %; MCH 34.1 pg (25.0-35.0); MCV 106.5 fL (80.0-100.0); Macrocytosis Moderate; Mean Platelet Volume 8.7; Monocytes # (A) 0.4 k/uL (0-1.0); Monocytes % (A) 5 %; Neutrophils # (A) 5.6 k/uL (1.3-7.7); Neutrophils % (A) 77 %; Platelet Count 184 k/uL (150-450); RBC 3.06 m/uL (4.30-5.90); RDW 15.2 % (11.5-15.5); WBC 7.3 k/uL (3.8-10.6)
[2019-03-18] MEDS: SYMBICORT 160-4.5 MCG INHALER INHALATION SCH ×2 (07:27→19:29)
[2019-03-18 07:33] LABS: Calcium 9.7 mg/dL (8.4-10.2); Potassium 4.8 mmol/L (3.5-5.1)
[2019-03-18] MEDS: PANTOPRAZOLE 40 MG TABLET PO SCH (07:55)
[2019-03-18] MEDS: CALCIUM ACETATE 667 MG TAB PO SCH ×3 (07:55→17:03)
[2019-03-18] MEDS: METOPROLOL TARTRATE 50 MG TAB PO SCH ×2 (07:55→21:35)
[2019-03-18] MEDS: ASPIRIN 81 MG PO SCH (07:55)
[2019-03-18] MEDS: HEPARIN SODIUM,PORCINE 5,000 UNIT/ML 1 ML VIAL SQ SCH ×2 (07:55→21:23)
[2019-03-18] MEDS: FENOFIBRATE 160 MG TAB PO SCH (07:55)
[2019-03-18] MEDS: levOCARNitine (WITH SUGAR) 100 MG/ML BOTTLE PO SCH ×3 (07:56→17:03)
[2019-03-18] MEDS: CALCIUM CARB-MAG CARB-FOLIC 1 EACH TAB PO SCH ×2 (07:56→21:22)
[2019-03-18] MEDS: VIT A,C & E-LUTEIN-MINERALS 1 EACH TAB PO SCH (07:56)
[2019-03-18] MEDS: FOLIC ACID-VIT B COMPLEX-VIT C 1 CAP PO SCH (07:56)
[2019-03-18] MEDS: FUROSEMIDE 40 MG TAB PO SCH (08:06)
--- NOTE | 2019-03-18 10:04 | P.GSCN ---
History of Present Illness Consult date: 03/18/19 Reason for Consult: PAD Requesting physician: Germain Dowd History of present illness: This is a 68-year-old gentleman who follows on an outpatient basis with Dr. Nell Rosen. He has a previous medical history of multiple comorbidities including insulin-dependent diabetes with diabetic neuropathy, chronic atrial f ibrillation on no anticoagulation, congestive heart failure, end-stage kidney disease with dialysis, hypertension, rheumatoid arthritis on Enbrel therapy, medical noncompliance, and lower extremity venous stasis ulcers with previous treatment at the wound care center, recently discharged 01/02/2019. He presented to [facility] on 03/15/2019 with complaints of shortness of breath, lower extremity edema, and lower extremity wound drainage for approximately 2 weeks. He states he did not contact the wound care center or come to the doctor earlier because he figured it would clear up on its own. He has not been compliant with lower extremity elevation, compression wraps, or compression st ockings. He has had several admissions for exacerbation of heart failure. Dr. Messina was consulted for peripheral arterial disease. Review of Systems Review of systems was completed and was negative except as noted - Cardiovascular Reports leg edema, Reports shortness of breath - Integumentary Reports foot/leg ulcers, Reports wounds Past Medical History Past Medical History: Atrial Fibrillation, Asthma, Heart Failure, Diabetes Mellitus, Dialysis, Eye Disorder, GERD/Reflux, Hypertension, Osteoarthritis (OA), Pneumonia, Renal Disease, Rheumatoid Arthritis (RA), Seizure Disorder Additional Past Medical History / Comment(s): ESRD with hemodialysis, mineral bone disease, chronic anemia, IDDM type II, diabetic retinopathy-"legally blind", chronic neuropathy occasionally in toes bilateral feet and left leg, bilateral lower leg edema, cellulitis bilateral lower legs, past leg/foot wounds and currently has left medial leg wounds that have scabbed over and no longer goes to [facility], paroxysmal Afib, 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 History of Any Multi-Drug Resistant Organisms: None Reported Past Surgical History: Hernia Repair, Orthopedic Surgery Additional Past Surgical History / Comment(s): Bilateral cataract surgery, insertion dialysis catheter left arm then had a procedure done to dialysis catheter at [facility]-cannot recall exactly what was done, PICC line insertion/removed, bilateral inguinal hernina repairs, colonoscopy/polypectomy, R shoulder rotator cuff repair, debridements bilateral feet. Past Anesthesia/Blood Transfusion Reactions: No Reported Reaction Additional Past Anesthesia/Blood Transfusion Reaction / Comm: Pt received blood in past without reaction. Past Psychological History: Anxiety, Depression Additional Psychological History / Comment(s): lives with his and family home. 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 No travel since his days. no animals in the home Smoking Status: Former smoker Past Alcohol Use History: None Reported Past Drug Use History: None Reported - Past Family History Mother Family Medical History: Diabetes Mellitus Father Family Medical History: Cancer Additional Family Medical History / Comment(s): Metastatic cancer. Pt cannot recall primary. Medications and Allergies Home Medications Medication Instructions Recorded Confirmed Type Etanercept [Enbrel] 50 mg SQ LUU 06/12/14 03/17/19 History Furosemide [Lasix] 40 mg PO BID 06/12/14 03/17/19 History NIFEdipine [NIFEdipine ER] 60 mg PO DAILY 06/12/14 03/17/19 History Insulin Glargine [Lantus] 70 unit SQ HS 05/05/18 03/17/19 History Aspirin EC [Ecotrin Low Dose] 81 mg PO DAILY 07/31/18 03/17/19 History Gemfibrozil [Lopid] 600 mg PO BID 07/31/18 03/17/19 History Budesonide-Formot 160-4.5 Mcg 2 puff INHALATION RT-BID 02/26/19 03/17/19 History [Symbicort 160-4.5 Mcg Inhaler] Calcium Acetate [PhosLo] 2,001 mg PO TID-W/MEALS 02/26/19 03/17/19 History Magnebind 250/300mg 1 tab PO BID-W/MEALS 02/26/19 03/17/19 History Metoprolol Tartrate [Lopressor] 50 mg PO BID 02/26/19 03/17/19 History Omeprazole 40 mg PO DAILY 02/26/19 03/17/19 History Prorenal + D 1 tab PO DAILY 02/26/19 03/17/19 History levOCARNitine [Levocarnitine] 330 mg PO TID-W/MEALS 02/26/19 03/17/19 History Albuterol Nebulized [Ventolin 2.5 mg INHALATION RT-TID 03/17/19 03/17/19 History Nebulized] Allergies Allergy/AdvReac Type Severity Reaction Status Date / Time sulfamethoxazole AdvReac Unknown Nausea & Verified 03/15/19 02:33 [From Bactrim] Vomiting trimethoprim [From Bactrim] AdvReac Unknown Nausea & Verified 03/15/19 02:33 Vomiting Surgical - Exam Vital Signs Temp Pulse Resp BP Pulse Ox 98.3 F 64 20 127/61 96 03/15/19 02:30 03/15/19 02:30 03/15/19 02:30 03/15/19 02:30 03/15/19 02:30 - General well developed, well nourished, no distress, no pain, chronically ill, obese - Eyes normal ocular movement - ENT no hearing loss - Neck no masses, no bruits, trachea midline - Respiratory Lungs sounds diminished bilaterally. Respirations even, nonlabored. Currently on room air with oxygen saturation 100%. No chest wall deformities. No clubbing or cyanosis. - Cardiovascular S1, S2 present. Irregular rate and rhythm, atrial fibrillation on EKG. 3-4+ lower extremity pitting edema present. No calf pain or tenderness noted. Bilateral lower extremities with dressings and Lg wraps. - Abdomen Abdomen: soft, non tender, bowel sounds - Genitourinary deferred - Rectum deferred - Integumentary Lower extremities are warm. Multiple ulcerations present to bilateral shins, see chart for pictures and measurements - Musculoskeletal normal posture - Psychiatric oriented to time, oriented to person, oriented to place, speech is normal Results - Labs 03/18/19 06:40 03/18/19 06:40 Abnormal Lab Results - Last 24 Hours (Table) 03/17/19 03/17/19 03/17/19 Range/Units 12:01 16:56 20:46 RBC (4.30-5.90) m/uL Hgb (13.0-17.5) gm/dL Hct (39.0-53.0) % MCV (80.0-100.0) fL Lymphocytes # (1.0-4.8) k/uL BUN (9-20) mg/dL Creatinine (0.66-1.25) mg/dL POC Glucose (mg/dL) 110 H 191 H 267 H (75-99) mg/dL 03/18/19 03/18/19 03/18/19 Range/Units 05:14 05:34 06:40 RBC 3.06 L (4.30-5.90) m/uL Hgb 10.4 L (13.0-17.5) gm/dL Hct 32.6 L (39.0-53.0) % MCV 106.5 H (80.0-100.0) fL Lymphocytes # 0.9 L (1.0-4.8) k/uL BUN (9-20) mg/dL Creatinine (0.66-1.25) mg/dL POC Glucose (mg/dL) 54 L 58 L (75-99) mg/dL 03/18/19 Range/Units 06:40 RBC (4.30-5.90) m/uL Hgb (13.0-17.5) gm/dL Hct (39.0-53.0) % MCV (80.0-100.0) fL Lymphocytes # (1.0-4.8) k/uL BUN 64 H (9-20) mg/dL Creatinine 6.71 H (0.66-1.25) mg/dL POC Glucose (mg/dL) (75-99) mg/dL Microbiology - Last 24 Hours (Table) 03/17/19 19:00 Gram Stain - Preliminary Leg - Left Wound Culture - Preliminary 03/17/19 19:00 Gram Stain - Preliminary Leg - Right Wound Culture - Preliminary 03/15/19 03:08 Blood Culture - Preliminary Blood No Growth after 72 hours Diabetes panel 03/18/19 Range/Units 06:40 Sodium 141 (137-145) mmol/L Potassium 4.8 (3.5-5.1) mmol/L Chloride 100 (98-107) mmol/L Carbon Dioxide 25 (22-30) mmol/L BUN 64 H (9-20) mg/dL Creatinine 6.71 H (0.66-1.25) mg/dL Glucose 83 (74-99) mg/dL Calcium 9.7 (8.4-10.2) mg/dL Calcium panel 03/18/19 Range/Units 06:40 Calcium 9.7 (8.4-10.2) mg/dL Pituitary panel 03/18/19 Range/Units 06:40 Sodium 141 (137-145) mmol/L Potassium 4.8 (3.5-5.1) mmol/L Chloride 100 (98-107) mmol/L Carbon Dioxide 25 (22-30) mmol/L BUN 64 H (9-20) mg/dL Creatinine 6.71 H (0.66-1.25) mg/dL Glucose 83 (74-99) mg/dL Calcium 9.7 (8.4-10.2) mg/dL Adrenal panel 03/18/19 Range/Units 06:40 Sodium 141 (137-145) mmol/L Potassium 4.8 (3.5-5.1) mmol/L Chloride 100 (98-107) mmol/L Carbon Dioxide 25 (22-30) mmol/L BUN 64 H (9-20) mg/dL Creatinine 6.71 H (0.66-1.25) mg/dL Glucose 83 (74-99) mg/dL Calcium 9.7 (8.4-10.2) mg/dL - Imaging Chest x-ray: image reviewed EKG: image reviewed Additional studies: reviewed venous Doppler studies from this admission as well as arterial Doppler studies from December 2017 Assessment and Plan Assessment: 1. Bilateral lower extremity chronic venous ulcers, previously treated in the wound care center by Dr. Scales, discharge from [facility] 01/02/19 2. Insulin-dependent diabetes with diabetic neuropathy 3. Chronic atrial fibrillation 4. Chronic congestive heart failure 5. End-stage kidney disease with dialysis 6. Hypertension 7. Rheumatoid arthritis on Enbrel therapy 8. Medical noncompliance Plan: the patient was seen and examined at the bedside. Chart/diagnostics were reviewed. The case was discussed in detail with Dr. Messina. At this time the patient does not have signs of significant arterial disease, he has no intermittent claudication. We recommend continuing local wound care for his chronic venous ulcers per Dr. Bae recommendation with Silvadene and Lg wraps which should be applied from the toes to the knee level. Patient should have lower extremities elevated above the level of his heart at all times except when ambulating and toileting. Patient encouraged to be compliant with treatment recommendations. Continued medical management of other comorbid conditions per primary care service. Patient may be discharged from our standpoint when okay with other services. He may follow up in the future with Dr. Messina for possible repeat arterial studies. Thank you Dr. Dowd for this consult. Please call us with any further questions. Time with Patient: Greater than 30
--- NOTE | 2019-03-18 11:47 | P.PN ---
Subjective Patient is seen in follow-up for end-stage renal disease. He is maintained on hemodialysis on Sunday schedule. Currently sitting up in chair. Hemodynamically stable. Legs are wrapped. Denies any drainage. Tolerated hemodialysis well yesterday. Vital signs are stable. General: The patient appeared well nourished and normally developed. HEENT: Head exam is unremarkable. Neck is without jugular venous distension. LUNGS: Lungs are clear to auscultation and percussion. Breath sounds decreased. HEART: Rate and Rhythm are regular. First and second heart sounds normal. No murmurs, rubs or gallops. ABDOMEN: Abdominal exam reveals normal bowel sounds. Non-tender and non- distended. No evidence of peritonitis. EXTREMITITES: 2+ edema. Wrapped. No obvious drainage noted. Objective - Vital Signs Vital signs: Vital Signs Temp 98.3 F 03/18/19 07:00 Pulse 63 03/18/19 07:00 Resp 12 03/18/19 07:00 BP 146/68 03/18/19 07:00 Pulse Ox 99 03/18/19 07:00 Intake & Output 03/17/19 03/18/19 03/18/19 18:59 06:59 18:59 Intake Total 1160 480 Output Total 400 Balance 1160 80 Weight 124.2 kg Intake: Oral 1160 480 Output: Urine 400 Other: Voiding Method Toilet # Voids 0 - Labs CBC & Chem 7: 03/18/19 06:40 03/18/19 06:40 Labs: Abnormal Lab Results - Last 24 Hours (Table) 03/17/19 03/17/19 03/17/19 Range/Units 12:01 16:56 20:46 RBC (4.30-5.90) m/uL Hgb (13.0-17.5) gm/dL Hct (39.0-53.0) % MCV (80.0-100.0) fL Lymphocytes # (1.0-4.8) k/uL BUN (9-20) mg/dL Creatinine (0.66-1.25) mg/dL POC Glucose (mg/dL) 110 H 191 H 267 H (75-99) mg/dL 03/18/19 03/18/19 03/18/19 Range/Units 05:14 05:34 06:40 RBC 3.06 L (4.30-5.90) m/uL Hgb 10.4 L (13.0-17.5) gm/dL Hct 32.6 L (39.0-53.0) % MCV 106.5 H (80.0-100.0) fL Lymphocytes # 0.9 L (1.0-4.8) k/uL BUN (9-20) mg/dL Creatinine (0.66-1.25) mg/dL POC Glucose (mg/dL) 54 L 58 L (75-99) mg/dL 03/18/19 Range/Units 06:40 RBC (4.30-5.90) m/uL Hgb (13.0-17.5) gm/dL Hct (39.0-53.0) % MCV (80.0-100.0) fL Lymphocytes # (1.0-4.8) k/uL BUN 64 H (9-20) mg/dL Creatinine 6.71 H (0.66-1.25) mg/dL POC Glucose (mg/dL) (75-99) mg/dL Microbiology - Last 24 Hours (Table) 03/17/19 19:00 Gram Stain - Preliminary Leg - Left Wound Culture - Preliminary 03/17/19 19:00 Gram Stain - Preliminary Leg - Right Wound Culture - Preliminary 03/15/19 03:08 Blood Culture - Preliminary Blood No Growth after 72 hours Assessment and Plan Plan: Assessment: 1. End-stage renal disease maintained on hemodialysis on Sunday schedule for left upper extremity AV fistula. 2. Hypertension with chronic kidney disease. Controlled. 3. Insulin-dependent diabetes mellitus. 4. Chronic kidney disease mineral bone disease maintained on phosphate binders. 5. Lower extremity ulcers. Infectious disease vascular surgery following. Plan: Hemodialysis tomorrow - will try for 3 L UF. Increase Lasix to 80 mg orally twice daily.
[2019-03-18 12:01] LABS: Glucose,Whole Blood 69 mg/dL (75-99)
[2019-03-18 12:18] LABS: Glucose,Whole Blood 60 mg/dL (75-99)
[2019-03-18 12:41] LABS: Glucose,Whole Blood 65 mg/dL (75-99)
[2019-03-18 13:00] LABS: Glucose,Whole Blood 75 mg/dL (75-99)
[2019-03-18 14:28] LABS: Glucose,Whole Blood 121 mg/dL (75-99)
[2019-03-18] MEDS: FUROSEMIDE 80 MG TAB PO SCH (15:10)
[2019-03-18 16:37] LABS: Glucose,Whole Blood 134 mg/dL (75-99)
--- NOTE | 2019-03-18 17:24 | PN ---
PROGRESS NOTE DATE OF SERVICE: 03/18/2019. This 68-year-old gentleman who was admitted with significant bilateral leg ulcerations and cellulitis, infection, also had renal failure. Patient receiving hemodialysis. The patient also has significant hypoglycemia today and last night the sugars were very low to 69, 60, 65, 75. Patient is receiving Lantus about 70 units at bedtime. PAST MEDICAL HISTORY: Reviewed. REVIEW OF SYSTEMS: Cardiovascular: No angina or palpitations. Respiration as mentioned earlier. GI: As mentioned earlier. : No dysuria. Central nervous system: Numbness, generalized weakness. CURRENT MEDICATIONS: Reviewed and include: 1. Tylenol p.r.n. 2. [place] 5 mg q.6h p.r.n. 3. Aspirin 81 mg. 5. Magnesium carbonate. 6. PhosLo 2001 mg t.i.d. with meals. 7. Cefazolin 1 g IV q.8h. 8. Lofibra. 9. Lasix 80 mg p.o. b.i.d. 10.Heparin. 11.Levemir. 12.Multivitamins. 13.Narcan. 14.Procardia XL. 15.Enbrel. 16.Protonix. 17.Restoril. 18.Lantus insulin as mentioned. PHYSICAL EXAMINATION: The patient is alert and oriented x3. Pulse 60. Blood pressure 137/73, respiration 18, temperature 97.5, pulse ox 100 percent on room air. HEENT: Conjunctivae normal. Oral mucosa moist. NECK is no jugular venous distention. No carotid bruit. No lymph node enlargement. CARDIOVASCULAR SYSTEM: S1, S2 muffled. RESPIRATORY: Breath sounds diminished in the bases. Bilateral scattered rhonchi and crackles. Respiratory wheezing also present. ABDOMEN: Soft, nontender. No mass palpable. LEGS: No edema. No swelling. CENTRAL NERVOUS SYSTEM: Diffusely weak. The patient is slightly drowsy also. LAB STUDIES: At this time shows Accu-Cheks are 60 65, 75. Hemoglobin 10.4, and creatinine 6.71. Troponin 0.03. ASSESSMENT: 1. Bilateral leg ulcers, right more than the left, present on admission. 2. Severe hypoglycemia possibly medication induced. 3. Change in mental status, metabolic acidosis secondary to hypoglycemia. 4. History of renal disease with chronic kidney disease with kidney failure with stage IV on home dialysis. 5. Chronically elevated troponin. 6. Diabetes mellitus type 2. 7. Diabetic peripheral neuropathy. 8. Hypertension. 9. History of degenerative joint disease. 10.History rheumatoid arthritis. 11.History of seizure disorder. 12.History of leg cellulitis. 13.History of chronic back pain. 14.History of depression. 15.History of asthma. 16.History of degenerative joint disease. 17.History of rheumatoid arthritis. 18.History of seizure disorder. 19.History of legal blindness. 20.Chronic peripheral neuropathy secondary to diabetes type 2. 21.Possible peripheral artery disease, left infrapopliteal artery area previously. 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 23.History of hernia repair. 24.History of anxiety, depression. 25.Obesity with body mass index of 34.3. 26.Remote history of nicotine dependence. RECOMMENDATIONS AND DISCUSSION: In this 68-year-old gentleman who presented with multiple complex medical issues, at this time, I recommend to continue current medications and continue the symptomatic treatment. Continue the antibiotics. The patient also has seen hypoglycemia causing some change in mental status. At this time, I recommend to cut down the Lantus 50 units and continue to monitor. Recommend blood sugar at least q.2 hours for the rest of the evening and blood sugars falling less than 70, I recommend 1 ampule of 50% glucose also. Closely monitor with Infectious Disease and Nephrology. Cultures are negative so far. Prognosis guarded. Continue the local dressing. Further recommendations to follow. MMODL / IJN: [id number] / MTDD
[2019-03-18 18:49] LABS: Glucose,Whole Blood 150 mg/dL (75-99)
[2019-03-18 20:30] LABS: Glucose,Whole Blood 147 mg/dL (75-99)
[2019-03-18] MEDS: INSULIN DETEMIR (LEVEMIR) 100 UNIT/ML SYR SQ SCH (21:26)
[2019-03-18 22:02] LABS: Glucose,Whole Blood 154 mg/dL (75-99)
--- NOTE | 2019-03-18 23:01 | P.PN ---
Subjective Progress Note Date: 03/18/19 68-year-old man who is a history of chronic venous stasis with recurrent ulcerations, venous insufficiency, chronic kidney disease and chronic congestive heart failure systolic type presents to hospital with worsening of his lower extremity edema that had been worsening over about 4 weeks. Apparently he is suddenly worsened he developed multiple open ulcerations that were draining he had some increasing edema to his right leg he also became more short of breath and presented to the emergency room. With all these features she was brought into hospital for further evaluation with multiple open ulcerations to consult was requested. The patient does not have much pain at the site has been concerned because her so much drainage. He has not had fever chills or rigors but does not feel well overall. 03/18/2019 doing better today struggles to elevate legs but did allow the wrap of the legs with silvadene..Will continue therapy and follow up at [facility] Objective - Vital Signs Vital signs: Vital Signs Temp 97.5 F L 03/18/19 19:02 Pulse 62 03/18/19 19:02 Resp 18 03/18/19 19:02 BP 155/69 03/18/19 19:02 Pulse Ox 100 03/18/19 19:29 Intake & Output 03/18/19 03/18/19 03/19/19 06:59 18:59 06:59 Intake Total 580 Output Total 400 Balance 180 Weight 124.2 kg Intake: Intake, IV Titration 100 Amount ceFAZolin 1,000 mg In 100 Sodium Chloride 0.9% 50 ml @ 100 mls/hr IVPB Q12HR [facility] Rx#:[id number] Oral 480 Output: Urine 400 Other: Voiding Method Toilet # Voids 0 - Exam HEENT: Anicteric conjunctiva are pink and moist nasal mucosa grossly intact without significant lesions, there is no thrush. Neck: The neck is supple without significant lymphadenopathy or thyromegaly. Lungs: symmetrical bilateral air entry review expiratory wheezes,no bronchial sounds Heart: irregular positive S4 no new murmur Abdomen: Positive bowel sounds soft and nontender without palpable masses or organomegaly. There was no guarding or rebound. Extremities: The upper extremities have excellent pulses they are symmetric, no significant petechiae or telangiectasia. No splinter hemorrhages were noted.The lower extremities revealed bilateral lower extremity edema right leg greater than the left. There are multiple open blisters and ulcerations secondary be seen especially in the lateral surface of the left leg the dorsum of the left foot and the lateral surface of the right leg. These areas are cleansed with saline and Silvadene dressing is in place with Lg wraps from the foot to the knee bilaterally. Importance of elevation is stated to the patient. Neuro: Awake alert oriented to person place and time. There are no acute new gross focal sensory motor deficits. - Labs CBC & Chem 7: 03/18/19 06:40 03/18/19 06:40 Labs: Abnormal Lab Results - Last 24 Hours (Table) 03/18/19 03/18/19 03/18/19 Range/Units 05:14 05:34 06:40 RBC 3.06 L (4.30-5.90) m/uL Hgb 10.4 L (13.0-17.5) gm/dL Hct 32.6 L (39.0-53.0) % MCV 106.5 H (80.0-100.0) fL Lymphocytes # 0.9 L (1.0-4.8) k/uL BUN (9-20) mg/dL Creatinine (0.66-1.25) mg/dL POC Glucose (mg/dL) 54 L 58 L (75-99) mg/dL 03/18/19 03/18/19 03/18/19 Range/Units 06:40 11:49 12:06 RBC (4.30-5.90) m/uL Hgb (13.0-17.5) gm/dL Hct (39.0-53.0) % MCV (80.0-100.0) fL Lymphocytes # (1.0-4.8) k/uL BUN 64 H (9-20) mg/dL Creatinine 6.71 H (0.66-1.25) mg/dL POC Glucose (mg/dL) 69 L 60 L (75-99) mg/dL 03/18/19 03/18/19 03/18/19 Range/Units 12:30 14:16 16:26 RBC (4.30-5.90) m/uL Hgb (13.0-17.5) gm/dL Hct (39.0-53.0) % MCV (80.0-100.0) fL Lymphocytes # (1.0-4.8) k/uL BUN (9-20) mg/dL Creatinine (0.66-1.25) mg/dL POC Glucose (mg/dL) 65 L 121 H 134 H (75-99) mg/dL 03/18/19 03/18/19 03/18/19 Range/Units 18:37 20:18 21:32 RBC (4.30-5.90) m/uL Hgb (13.0-17.5) gm/dL Hct (39.0-53.0) % MCV (80.0-100.0) fL Lymphocytes # (1.0-4.8) k/uL BUN (9-20) mg/dL Creatinine (0.66-1.25) mg/dL POC Glucose (mg/dL) 150 H 147 H 154 H (75-99) mg/dL Microbiology - Last 24 Hours (Table) 03/17/19 19:00 Gram Stain - Preliminary Leg - Left Wound Culture - Preliminary 03/17/19 19:00 Gram Stain - Preliminary Leg - Right Wound Culture - Preliminary 03/15/19 03:08 Blood Culture - Preliminary Blood No Growth after 72 hours Laboratory Results WBC 7.3 k/uL (3.8-10.6) 03/18/19 06:40 RBC 3.06 m/uL (4.30-5.90) L 03/18/19 06:40 Hgb 10.4 gm/dL (13.0-17.5) L 03/18/19 06:40 Hct 32.6 % (39.0-53.0) L 03/18/19 06:40 MCV 106.5 fL (80.0-100.0) H 03/18/19 06:40 MCH 34.1 pg (25.0-35.0) 03/18/19 06:40 MCHC 32.0 g/dL (31.0-37.0) 03/18/19 06:40 RDW 15.2 % (11.5-15.5) 03/18/19 06:40 Plt Count 184 k/uL (150-450) 03/18/19 06:40 Neutrophils % 77 % 03/18/19 06:40 Lymphocytes % 12 % 03/18/19 06:40 Monocytes % 5 % 03/18/19 06:40 Eosinophils % 4 % 03/18/19 06:40 Basophils % 0 % 03/18/19 06:40 Neutrophils # 5.6 k/uL (1.3-7.7) 03/18/19 06:40 Lymphocytes # 0.9 k/uL (1.0-4.8) L 03/18/19 06:40 Monocytes # 0.4 k/uL (0-1.0) 03/18/19 06:40 Eosinophils # 0.3 k/uL (0-0.7) 03/18/19 06:40 Basophils # 0.0 k/uL (0-0.2) 03/18/19 06:40 Hypochromasia Slight 03/18/19 06:40 Macrocytosis Moderate 03/18/19 06:40 PT 10.7 sec (9.0-12.0) 03/15/19 03:08 INR 1.0 (<1.2) 03/15/19 03:08 APTT 23.0 sec (22.0-30.0) 03/15/19 03:08 Sodium 141 mmol/L (137-145) 03/18/19 06:40 Potassium 4.8 mmol/L (3.5-5.1) 03/18/19 06:40 Chloride 100 mmol/L (98-107) 03/18/19 06:40 Carbon Dioxide 25 mmol/L (22-30) 03/18/19 06:40 Anion Gap 16 mmol/L 03/18/19 06:40 BUN 64 mg/dL (9-20) H 03/18/19 06:40 Creatinine 6.71 mg/dL (0.66-1.25) H 03/18/19 06:40 Est GFR (CKD-EPI)AfAm 9 (>60 ml/min/1.73 sqM) 03/18/19 06:40 Est GFR (CKD-EPI)NonAf 8 (>60 ml/min/1.73 sqM) 03/18/19 06:40 Glucose 83 mg/dL (74-99) 03/18/19 06:40 POC Glucose (mg/dL) 154 mg/dL (75-99) H 03/18/19 21:32 POC Glu [place] [employer] [place] 03/18/19 21:32 Calcium 9.7 mg/dL (8.4-10.2) 03/18/19 06:40 Total Bilirubin 0.7 mg/dL (0.2-1.3) 03/15/19 03:08 AST 25 U/L (17-59) 03/15/19 03:08 ALT 17 U/L (4-49) 03/15/19 03:08 Alkaline Phosphatase 104 U/L (38-126) 03/15/19 03:08 Troponin I 0.043 ng/mL (0.000-0.034) H* 03/15/19 03:08 NT-Pro-B Natriuret Pep 40255 pg/mL 03/15/19 03:08 Total Protein 7.2 g/dL (6.3-8.2) 03/15/19 03:08 Albumin 3.7 g/dL (3.5-5.0) 03/15/19 03:08 Microbiology 03/17/19 19:00 Leg - Left Gram Stain - Preliminary 03/17/19 19:00 Leg - Left Wound Culture - Preliminary 03/17/19 19:00 Leg - Right Gram Stain - Preliminary 03/17/19 19:00 Leg - Right Wound Culture - Preliminary 03/15/19 03:08 Blood Blood Culture - Preliminary No Growth after 72 hours Assessment and Plan (1) Bilateral edema of lower extremity Narrative/Plan: 68-year-old male who has multiple medical troubles that include is acute and chronic systolic congestive heart failure, lower extremity edema with venous s tasis and difficulties with his volume overload. He now has multiple ulcerations of the lower extremities there to be venous H serious in nature. Wound care with Silvadene wraps with Lg wrap or requested. Elevation of his limbs arrest. Control his underlying medical conditions are helpful. Fluid removal with diuretics, decreased oral intake and elevation of the lungs will be helpful for the process. 03/18/2019 the patient has undergone some diuresis and this has helped the significant volume overload. The legs are wrapped and he is struggled all day to have an elevated the nurses continue to work with him and remind him on an ongoing basis to elevate his legs to help his edema. The family brings outside food and including [place] fried chicken. The patient does not understand the sodium content of this type of food. Patient will follow the wound healing center after discharge.cultures are pending to help determine best antibiotic therapy at discharge Current Visit: Yes Status: Acute Code(s): R60.0 - LOCALIZED EDEMA SNOMED Code(s): 713659737 (2) Dyspnea Current Visit: No Status: Acute Code(s): R06.00 - DYSPNEA, UNSPECIFIED SNOMED Code(s): 404908309 (3) End stage renal disease on dialysis due to type 2 diabetes mellitus Current Visit: No Status: Acute Code(s): E11.22 - TYPE 2 DIABETES MELLITUS W DIABETIC CHRONIC KIDNEY DISEASE SNOMED Code(s): 29601597041323 (4) Fluid overload Current Visit: No Status: Acute Code(s): E87.70 - FLUID OVERLOAD, UNSPECIFIED SNOMED Code(s): 87029721
[2019-03-19 01:06] LABS: Glucose,Whole Blood 220 mg/dL (75-99)
[2019-03-19] MEDS: ACETAMINOPHEN TAB 325 MG TAB PO PRN ×3 (01:25→22:49)
[2019-03-19 03:09] LABS: Glucose,Whole Blood 156 mg/dL (75-99)
[2019-03-19 05:51] LABS: Glucose,Whole Blood 170 mg/dL (75-99)
[2019-03-19 07:38] LABS: Glucose,Whole Blood 101 mg/dL (75-99)
[2019-03-19] MEDS: METOPROLOL TARTRATE 50 MG TAB PO SCH ×2 (08:01→21:43)
[2019-03-19] MEDS: levOCARNitine (WITH SUGAR) 100 MG/ML BOTTLE PO SCH ×3 (08:02→17:26)
[2019-03-19] MEDS: FENOFIBRATE 160 MG TAB PO SCH (08:02)
[2019-03-19] MEDS: PANTOPRAZOLE 40 MG TABLET PO SCH (08:02)
[2019-03-19] MEDS: ASPIRIN 81 MG PO SCH (08:02)
[2019-03-19] MEDS: CALCIUM ACETATE 667 MG TAB PO SCH ×3 (08:02→17:25)
[2019-03-19] MEDS: FOLIC ACID-VIT B COMPLEX-VIT C 1 CAP PO SCH (08:03)
[2019-03-19] MEDS: FUROSEMIDE 80 MG TAB PO SCH ×2 (08:03→16:01)
[2019-03-19] MEDS: HEPARIN SODIUM,PORCINE 5,000 UNIT/ML 1 ML VIAL SQ SCH ×2 (08:03→21:43)
[2019-03-19] MEDS: VIT A,C & E-LUTEIN-MINERALS 1 EACH TAB PO SCH (08:03)
[2019-03-19] MEDS: CALCIUM CARB-MAG CARB-FOLIC 1 EACH TAB PO SCH ×2 (08:03→22:32)
[2019-03-19 08:06] LABS: Calcium 9.6 mg/dL (8.4-10.2); Potassium 5.2 mmol/L (3.5-5.1)
[2019-03-19 08:35] LABS: Basophils # (A) 0.1 k/uL (0-0.2); Basophils % (A) 1 %; Eosinophils # (A) 0.4 k/uL (0-0.7); Eosinophils % (A) 5 %; HCT 30.5 % (39.0-53.0); HGB 10.1 gm/dL (13.0-17.5); Hypochromasia Marked; Lymphocytes # (A) 0.7 k/uL (1.0-4.8); Lymphocytes % (A) 9 %; MCH 36.1 pg (25.0-35.0); MCHC 33.3 g/dL (31.0-37.0); MCV 108.3 fL (80.0-100.0); Macrocytosis Marked; Mean Platelet Volume 8.6; Monocytes # (A) 0.8 k/uL (0-1.0); Monocytes % (A) 11 %; Neutrophils # (A) 5.2 k/uL (1.3-7.7); Neutrophils % (A) 73 %; Platelet Count 159 k/uL (150-450); RBC 2.81 m/uL (4.30-5.90); WBC 7.2 k/uL (3.8-10.6)
[2019-03-19] MEDS: SYMBICORT 160-4.5 MCG INHALER INHALATION SCH ×2 (08:47→19:54)
[2019-03-19 09:05] LABS: Poikilocytosis (M) Present
--- NOTE | 2019-03-19 11:28 | P.PN ---
Subjective Patient is seen in follow-up for end-stage renal disease. He is maintained on hemodialysis on Sunday schedule. Currently sitting up in chair. Hemodynamically stable. Legs are wrapped. Denies any drainage. No active complaints at this time. Vital signs are stable. General: The patient appeared well nourished and normally developed. HEENT: Head exam is unremarkable. Neck is without jugular venous distension. LUNGS: Lungs are clear to auscultation and percussion. Breath sounds decreased. HEART: Rate and Rhythm are regular. First and second heart sounds normal. No murmurs, rubs or gallops. ABDOMEN: Abdominal exam reveals normal bowel sounds. Non-tender and non- distended. No evidence of peritonitis. EXTREMITITES: 2+ edema. Wrapped. No obvious drainage noted. Objective - Vital Signs Vital signs: Vital Signs Temp 98 F 03/19/19 07:00 Pulse 56 L 03/19/19 07:00 Resp 12 03/19/19 07:00 BP 151/80 03/19/19 07:00 Pulse Ox 98 03/19/19 07:00 Intake & Output 03/18/19 03/19/19 03/19/19 18:59 06:59 18:59 Intake Total 580 980 Output Total 400 Balance 180 980 Weight 125 kg Intake: Intake, IV Titration 100 Amount ceFAZolin 1,000 mg In 100 Sodium Chloride 0.9% 50 ml @ 100 mls/hr IVPB Q12HR [facility] Rx#:[id number] Oral 480 980 Output: Urine 400 Other: Voiding Method Toilet - Labs CBC & Chem 7: 03/19/19 07:20 03/19/19 07:20 Labs: Abnormal Lab Results - Last 24 Hours (Table) 03/18/19 03/18/19 03/18/19 Range/Units 11:49 12:06 12:30 RBC (4.30-5.90) m/uL Hgb (13.0-17.5) gm/dL Hct (39.0-53.0) % MCV (80.0-100.0) fL MCH (25.0-35.0) pg Lymphocytes # (1.0-4.8) k/uL Macrocytosis Potassium (3.5-5.1) mmol/L BUN (9-20) mg/dL Creatinine (0.66-1.25) mg/dL Glucose (74-99) mg/dL POC Glucose (mg/dL) 69 L 60 L 65 L (75-99) mg/dL 03/18/19 03/18/19 03/18/19 Range/Units 14:16 16:26 18:37 RBC (4.30-5.90) m/uL Hgb (13.0-17.5) gm/dL Hct (39.0-53.0) % MCV (80.0-100.0) fL MCH (25.0-35.0) pg Lymphocytes # (1.0-4.8) k/uL Macrocytosis Potassium (3.5-5.1) mmol/L BUN (9-20) mg/dL Creatinine (0.66-1.25) mg/dL Glucose (74-99) mg/dL POC Glucose (mg/dL) 121 H 134 H 150 H (75-99) mg/dL 03/18/19 03/18/19 03/19/19 Range/Units 20:18 21:32 00:54 RBC (4.30-5.90) m/uL Hgb (13.0-17.5) gm/dL Hct (39.0-53.0) % MCV (80.0-100.0) fL MCH (25.0-35.0) pg Lymphocytes # (1.0-4.8) k/uL Macrocytosis Potassium (3.5-5.1) mmol/L BUN (9-20) mg/dL Creatinine (0.66-1.25) mg/dL Glucose (74-99) mg/dL POC Glucose (mg/dL) 147 H 154 H 220 H (75-99) mg/dL 03/19/19 03/19/19 03/19/19 Range/Units 02:57 05:39 07:20 RBC 2.81 L (4.30-5.90) m/uL Hgb 10.1 L (13.0-17.5) gm/dL Hct 30.5 L (39.0-53.0) % MCV 108.3 H (80.0-100.0) fL MCH 36.1 H (25.0-35.0) pg Lymphocytes # 0.7 L (1.0-4.8) k/uL Macrocytosis Marked A Potassium (3.5-5.1) mmol/L BUN (9-20) mg/dL Creatinine (0.66-1.25) mg/dL Glucose (74-99) mg/dL POC Glucose (mg/dL) 156 H 170 H (75-99) mg/dL 03/19/19 03/19/19 Range/Units 07:20 07:26 RBC (4.30-5.90) m/uL Hgb (13.0-17.5) gm/dL Hct (39.0-53.0) % MCV (80.0-100.0) fL MCH (25.0-35.0) pg Lymphocytes # (1.0-4.8) k/uL Macrocytosis Potassium 5.2 H (3.5-5.1) mmol/L BUN 82 H (9-20) mg/dL Creatinine 8.15 H* (0.66-1.25) mg/dL Glucose 107 H (74-99) mg/dL POC Glucose (mg/dL) 101 H (75-99) mg/dL Microbiology - Last 24 Hours (Table) 03/15/19 03:08 Blood Culture - Preliminary Blood No Growth after 96 hours 03/17/19 19:00 Gram Stain - Preliminary Leg - Left Wound Culture - Preliminary 03/17/19 19:00 Gram Stain - Preliminary Leg - Right Wound Culture - Preliminary Assessment and Plan Plan: Assessment: 1. End-stage renal disease maintained on hemodialysis on Sunday schedule for left upper extremity AV fistula. 2. Hypertension with chronic kidney disease. Controlled. 3. Insulin-dependent diabetes mellitus. 4. Chronic kidney disease mineral bone disease maintained on phosphate binders. 5. Lower extremity ulcers. Infectious disease and vascular surgery following. Plan: Hemodialysis today - will try for 3 L UF. Maintain Lasix 80 mg orally twice daily.
[2019-03-19 12:00] LABS: Glucose,Whole Blood 94 mg/dL (75-99)
--- NOTE | 2019-03-19 16:37 | PN ---
PROGRESS NOTE DATE OF SERVICE: 03/19/2019 This 68-year-old gentleman admitted with significant bilateral leg ulcerations and cellulitis is being closely monitored. Patient is on IV antibiotics. Patient also had hemodialysis. Patient also is complaining of significant hypoglycemia. The insulin dose has been reduced to 50 units daily from 70 units daily, but still the patient is hypoglycemic. His food intake tends to be erratic, according to the patient. The patient also had some hypoglycemic episodes at home. No chest pain. No palpitations. Past medical history reviewed. REVIEW OF SYSTEMS: HEENT: As mentioned earlier. CARDIOVASCULAR SYSTEM: No angina, palpitations. RESPIRATORY SYSTEM: As mentioned earlier. GI: No nausea, vomiting. : No dysuria or retention. NERVOUS SYSTEM: No numbness, weakness. CURRENT MEDICATIONS: Reviewed. They include: 1. Tylenol p.r.n. 2. [place] 5 mg q.6 p.r.n. 3. Artificial Tears. 4. Aspirin 81 mg p.o. daily. 5. Symbicort 160/4.5 two puffs b.i.d. 6. MagneBind 400 mg p.o. b.i.d. 7. PhosLo t.i.d. 8. Cefazolin 1 gram b.i.d. 9. Lofibra 160 mg p.o. daily. 10.Lasix 80 mg p.o. b.i.d. 11.Heparin 5000 units subcutaneously b.i.d. 12.Levemir 50 units subcutaneously at bedtime. 13.Levocarnitine 330 mg p.o. t.i.d. 14.Lopressor 50 mg p.o. b.i.d. 15.Multivitamins 1 p.o. daily. 16.Narcan 0.2 q.2 p.r.n. 17.Nifedipine 60 mg p.o. daily. 18.Enbrel 50 mg subcutaneously. 19.Protonix 40 mg p.o. daily. 21.Restoril 15 mg at bedtime p.r.n. PHYSICAL EXAMINATION: Patient is alert, oriented x3. Pulse 58, blood pressure 115/61, respiration 12, temperature 97.5, pulse ox 98% on room air. HEENT: Conjunctivae normal. NECK: No jugular venous distention. CARDIOVASCULAR SYSTEM: S1, S2 muffled. RESPIRATORY SYSTEM: Breath sounds diminished at the bases. A few scattered rhonchi and crackles. ABDOMEN: Soft, non-tender. No mass palpable. LEGS: No edema. No swelling. NERVOUS SYSTEM: Higher functions as mentioned earlier. Moves all 4 limbs. No focal motor or sensory deficit. LYMPHATICS: No lymph node palpable in neck, axillae or groin. SKIN: No ulcer, rash, bleeding. JOINTS: No active deforming arthropathy. LABS: Labs at this time show WBC 7.2, hemoglobin 10.1, sodium 140, potassium 5.2. Creatinine is 8.15. ASSESSMENT: 1. Bilateral leg ulcers, right more than the left, present on admission. 2. Severe hypoglycemia, possibly medication-induced, with change in mental status, metabolic acidosis secondary to hypoglycemia. 3. History of renal disease with chronic kidney disease with kidney failure, stage IV, on hemodialysis. 4. Chronically elevated troponin. 5. Diabetes mellitus, type 2, with hypoglycemic episodes. 6. Diabetic peripheral neuropathy. 7. Hypertension. 8. History of degenerative joint disease. 9. History of rheumatoid arthritis. 10.History of seizure disorder. 11.History of leg cellulitis. 12.History of chronic back pain. 13.History of depression. 14.History of asthma. 15.History of degenerative joint disease. 16.History of rheumatoid arthritis. 17.History of seizure disorder. 18.History of legal blindness. 19.Chronic peripheral neuropathy secondary to diabetes mellitus, type 2. 20.Possible peripheral arterial disease with left a infrapopliteal artery area previously. 21.History of endocarditis with vegetation on mitral valve in 2014. 22.History of hernia repair. 23.History of anxiety, depression. 24.Obesity with body mass index of 34.3. 25.Remote history of nicotine dependence. RECOMMENDATIONS AND DISCUSSION: I recommend to continue current medications, continue with the monitoring, symptomatic treatment. Otherwise at this time I recommend to continue the antibiotics. Closely monitor with Infectious Disease. We will keep the insulin at the currently reduced level and continue to monitor. The patient may have to be discharged home with further plans for close glucose monitoring in the outpatient setting, which the patient might not be doing, and also reduced dose of Lantus and continued followup. See orders for the rest of the recommendations. Guarded prognosis. Further recommendations to follow. MMODL / IJN: [id number] / FELIPE
[2019-03-19 17:20] LABS: Glucose,Whole Blood 82 mg/dL (75-99)
[2019-03-19 20:17] LABS: Glucose,Whole Blood 132 mg/dL (75-99)
[2019-03-19] MEDS: INSULIN ASPART (NovoLOG) 100 UNIT/ML VIAL SQ SCH (20:49)
[2019-03-19] MEDS: INSULIN DETEMIR (LEVEMIR) 100 UNIT/ML SYR SQ SCH (21:42)
[2019-03-20 02:16] VITALS: RESP 16
[2019-03-20] MEDS: ACETAMINOPHEN TAB 325 MG TAB PO PRN (06:05)
[2019-03-20 07:28] LABS: Glucose,Whole Blood 194 mg/dL (75-99)
[2019-03-20 07:35] LABS: Basophils % (A) 0 %; Eosinophils # (A) 0.3 k/uL (0-0.7); Eosinophils % (A) 5 %; HCT 32.7 % (39.0-53.0); HGB 10.4 gm/dL (13.0-17.5); Hypochromasia Moderate; Lymphocytes # (A) 0.6 k/uL (1.0-4.8); Lymphocytes % (A) 10 %; MCH 34.1 pg (25.0-35.0); MCHC 31.7 g/dL (31.0-37.0); MCV 107.7 fL (80.0-100.0); Macrocytosis Marked; Mean Platelet Volume 9.1; Monocytes # (A) 0.4 k/uL (0-1.0); Monocytes % (A) 6 %; Neutrophils # (A) 4.9 k/uL (1.3-7.7); Neutrophils % (A) 77 %; Platelet Count 169 k/uL (150-450); RBC 3.04 m/uL (4.30-5.90); RDW 15.1 % (11.5-15.5); WBC 6.3 k/uL (3.8-10.6)
[2019-03-20 07:38] LABS: Calcium 9.3 mg/dL (8.4-10.2); Potassium 5.1 mmol/L (3.5-5.1)
[2019-03-20] MEDS: ASPIRIN 81 MG PO SCH (07:38)
[2019-03-20] MEDS: CALCIUM ACETATE 667 MG TAB PO SCH ×2 (07:38→12:09)
[2019-03-20] MEDS: METOPROLOL TARTRATE 50 MG TAB PO SCH (07:38)
[2019-03-20] MEDS: FOLIC ACID-VIT B COMPLEX-VIT C 1 CAP PO SCH (07:38)
[2019-03-20] MEDS: FENOFIBRATE 160 MG TAB PO SCH (07:38)
[2019-03-20] MEDS: CALCIUM CARB-MAG CARB-FOLIC 1 EACH TAB PO SCH (07:38)
[2019-03-20] MEDS: PANTOPRAZOLE 40 MG TABLET PO SCH (07:38)
[2019-03-20] MEDS: VIT A,C & E-LUTEIN-MINERALS 1 EACH TAB PO SCH (07:39)
[2019-03-20] MEDS: FUROSEMIDE 80 MG TAB PO SCH (07:39)
[2019-03-20] MEDS: INSULIN ASPART (NovoLOG) 100 UNIT/ML VIAL SQ SCH ×2 (07:39→12:10)
[2019-03-20] MEDS: levOCARNitine (WITH SUGAR) 100 MG/ML BOTTLE PO SCH ×2 (07:39→12:10)
[2019-03-20] MEDS: HEPARIN SODIUM,PORCINE 5,000 UNIT/ML 1 ML VIAL SQ SCH (07:39)
[2019-03-20 07:53] VITALS: BP 131/77; PULSE 60; TEMP 97.8
[2019-03-20 09:06] LABS: Poikilocytosis (M) Present
[2019-03-20] MEDS: SYMBICORT 160-4.5 MCG INHALER INHALATION SCH (10:00)
[2019-03-20] MEDS ORDERED: CALCIUM CARBONATE 500 MG CHEWABLE PO PRN (11:04)
--- NOTE | 2019-03-20 11:09 | P.PN ---
Subjective Patient is seen in follow-up for end-stage renal disease. He is maintained on hemodialysis on Sunday schedule. Currently sitting up in chair. Hemodynamically stable. Legs are wrapped. Denies any drainage. No active complaints at this time. Tolerated hemodialysis well yesterday. Vital signs are stable. General: The patient appeared well nourished and normally developed. HEENT: Head exam is unremarkable. Neck is without jugular venous distension. LUNGS: Lungs are clear to auscultation and percussion. Breath sounds decreased. HEART: Rate and Rhythm are regular. First and second heart sounds normal. No murmurs, rubs or gallops. ABDOMEN: Abdominal exam reveals normal bowel sounds. Non-tender and non- distended. No evidence of peritonitis. EXTREMITITES: 2+ edema. Wrapped. No obvious drainage noted. Objective - Vital Signs Vital signs: Vital Signs Temp 97.8 F 03/20/19 07:05 Pulse 60 03/20/19 07:05 Resp 16 03/20/19 07:05 BP 131/77 03/20/19 07:05 Pulse Ox 100 03/20/19 07:05 Intake & Output 03/19/19 03/20/19 03/20/19 18:59 06:59 18:59 Intake Total 450 20 300 Output Total 2000 Balance -1550 20 300 Weight 113.1 kg Intake: Intake, IV Titration 50 Amount ceFAZolin 1,000 mg In 50 Sodium Chloride 0.9% 50 ml @ 100 mls/hr IVPB Q12HR [facility] Rx#:[id number] Oral 400 20 300 Output: Hemodialysis 1999 Other: Voiding Method Toilet Toilet Toilet # Voids 2 - Labs CBC & Chem 7: 03/20/19 06:43 03/20/19 06:43 Labs: Abnormal Lab Results - Last 24 Hours (Table) 03/19/19 03/20/19 03/20/19 Range/Units 20:12 06:43 06:43 RBC 3.04 L (4.30-5.90) m/uL Hgb 10.4 L (13.0-17.5) gm/dL Hct 32.7 L (39.0-53.0) % MCV 107.7 H (80.0-100.0) fL Lymphocytes # 0.6 L (1.0-4.8) k/uL Macrocytosis Marked A BUN 60 H (9-20) mg/dL Creatinine 6.74 H (0.66-1.25) mg/dL Glucose 174 H (74-99) mg/dL POC Glucose (mg/dL) 132 H (75-99) mg/dL 03/20/19 Range/Units 07:06 RBC (4.30-5.90) m/uL Hgb (13.0-17.5) gm/dL Hct (39.0-53.0) % MCV (80.0-100.0) fL Lymphocytes # (1.0-4.8) k/uL Macrocytosis BUN (9-20) mg/dL Creatinine (0.66-1.25) mg/dL Glucose (74-99) mg/dL POC Glucose (mg/dL) 194 H (75-99) mg/dL Microbiology - Last 24 Hours (Table) 03/15/19 03:08 Blood Culture - Preliminary Blood No Growth after 120 hours 03/17/19 19:00 Gram Stain - Final Leg - Left Wound Culture - Final Staphylococcus haemolyticus 03/17/19 19:00 Gram Stain - Final Leg - Right Wound Culture - Final Assessment and Plan Plan: Assessment: 1. End-stage renal disease maintained on hemodialysis on Sunday schedule for left upper extremity AV fistula. 2. Hypertension with chronic kidney disease. Controlled. 3. Insulin-dependent diabetes mellitus. 4. Chronic kidney disease mineral bone disease maintained on phosphate binders. 5. Lower extremity ulcers. Infectious disease and vascular surgery following. Plan: Hemodialysis tomorrow. Maintain Lasix 80 mg orally twice daily. Stable for discharge from nephrology standpoint.
[2019-03-20] MEDS ORDERED: FAMOTIDINE 20 MG TAB PO SCH ×2 (11:15→21:00)
[2019-03-20 11:48] LABS: Glucose,Whole Blood 211 mg/dL (75-99)
--- NOTE | 2019-03-20 15:04 | P.DS ---
Providers Date of admission: 03/17/19 13:03 Attending physician: Germain Dowd Consults: 03/15/19 05:20 Consult Physician Routine Consulting Provider: Janette Greenberg Consult Reason/Comments: dialysis patient Do you want consulting provider notified?: Yes 03/17/19 04:11 Consult Physician Routine Consulting Provider: Grzegorz Bae Consult Reason/Comments: infectious disease; leg ulcers Do you want consulting provider notified?: Yes 03/17/19 15:38 Consult Physician Routine Consulting Provider: Elijah Messina Consult Reason/Comments: pad Do you want consulting provider notified?: Yes Primary care physician: Nell [facility] Hospital Course: Patient is admitted for pedal edema and bilateral leg ulcerations secondary to chronic venous insufficiency patient was treated with IV antibiotics that is Rocephin and the patient was evaluated by infectious disease is recommending wound care and oxygen cycle and patient was cleared by all consultants patient is being discharged today. Patient is hypoglycemic patient's Lantus dose was increased from 70-50 units most probably because of the diet. As patient the was still hypoglycemic yesterday his Lantus was held by the night covering physician. We'll cut down the Lantus to 35 units patient will be discharged and was asked to check the blood sugars closely and take it to PCPs office for titration of insulin. Patient is otherwise clinically doing well and home care was set up for wound care patient will be discharged today. Patient does have end-stage renal disease hemodialysis dependent. PHYSICAL EXAMINATION: GENERAL: The patient is alert and oriented x3, not in any acute distress. Well developed, well nourished. HEENT: Pupils are round and equally reacting to light. EOMI. No scleral icterus. No conjunctival pallor. Normocephalic, atraumatic. No pharyngeal erythema. No thyromegaly. CARDIOVASCULAR: S1 and S2 present. No murmurs, rubs, or gallops. PULMONARY: Chest is clear to auscultation, no wheezing or crackles. ABDOMEN: Soft, nontender, nondistended, normoactive bowel sounds. No palpable organomegaly. MUSCULOSKELETAL: No joint swelling or deformity. EXTREMITIES: No cyanosis, clubbing, patient appears to have pedal edema both legs are wrapped with Lg bandage which I did not remove processes ulcers as patient was already assessed by infectious disease physician NEUROLOGICAL: Gross neurological examination did not reveal any focal deficits. SKIN: No rashes. Further chronic medical problems, hospitalization course and other medical problems that were addressed during this hospitalization please refer to di ctation of progress note from Dr. Dowd from yesterday Plan - Discharge Summary Discharge Rx Participant: Yes New Discharge Prescriptions: New Doxycycline Hyclate 100 mg PO BID #28 tab Furosemide [Lasix] 80 mg PO BID@0900,1600 tab Insulin Detemir (Levemir) [Levemir] 35 unit SQ HS syr Famotidine [Pepcid] 20 mg PO BID #30 tablet Continue NIFEdipine [NIFEdipine ER] 60 mg PO DAILY Etanercept [Enbrel] 50 mg SQ LUU Gemfibrozil [Lopid] 600 mg PO BID Aspirin EC [Ecotrin Low Dose] 81 mg PO DAILY Budesonide-Formot 160-4.5 Mcg [Symbicort 160-4.5 Mcg Inhaler] 2 puff INHALATION RT-BID Omeprazole 40 mg PO DAILY Metoprolol Tartrate [Lopressor] 50 mg PO BID Calcium Acetate [PhosLo] 2,001 mg PO TID-W/MEALS levOCARNitine [Levocarnitine] 330 mg PO TID-W/MEALS Magnebind 250/300mg 1 tab PO BID-W/MEALS Prorenal + D 1 tab PO DAILY Albuterol Nebulized [Ventolin Nebulized] 2.5 mg INHALATION RT-TID Discontinued Furosemide [Lasix] 40 mg PO BID Insulin Glargine [Lantus] 70 unit SQ HS Discharge Medication List Etanercept [Enbrel] 50 mg SQ LUU 06/12/14 [History] NIFEdipine [NIFEdipine ER] 60 mg PO DAILY 06/12/14 [History] Aspirin EC [Ecotrin Low Dose] 81 mg PO DAILY 07/31/18 [History] Gemfibrozil [Lopid] 600 mg PO BID 07/31/18 [History] Budesonide-Formot 160-4.5 Mcg [Symbicort 160-4.5 Mcg Inhaler] 2 puff INHALATION RT-BID 02/26/19 [History] Calcium Acetate [PhosLo] 2,001 mg PO TID-W/MEALS 02/26/19 [History] Magnebind 250/300mg 1 tab PO BID-W/MEALS 02/26/19 [History] Metoprolol Tartrate [Lopressor] 50 mg PO BID 02/26/19 [History] Omeprazole 40 mg PO DAILY 02/26/19 [History] Prorenal + D 1 tab PO DAILY 02/26/19 [History] levOCARNitine [Levocarnitine] 330 mg PO TID-W/MEALS 02/26/19 [History] Albuterol Nebulized [Ventolin Nebulized] 2.5 mg INHALATION RT-TID 03/17/19 [History] Doxycycline Hyclate 100 mg PO BID #28 tab 03/20/19 [Rx] Famotidine [Pepcid] 20 mg PO BID #30 tablet 03/20/19 [Rx] Furosemide [Lasix] 80 mg PO BID@0900,1600 tab 03/20/19 [Rx] Insulin Detemir (Levemir) [Levemir] 35 unit SQ HS syr 03/20/19 [Rx] Follow up Appointment(s)/Referral(s): [facility], [NON-STAFF] - As Needed Nell Rosen MD [Primary Care Provider] - 03/21/19 10:00 am Elijah Messina DO [Doctor of Osteopathic Medicine] - As Needed (May follow-up in the future for repeat arterial studies) Patient Instructions/Handouts: Hypoglycemia in a Person with Diabetes (DC), Diabetic Foot Ulcers (DC) Discharge Disposition: HOME WITH HOME HEALTH SERVICES
== END 2019-03-20 13:17 | disposition home health service (06) | DRG 299 ==
LOC: EC 02:19 → 4SSUR 05:21 → OBSVTOIN 03-17 13:03
PROVIDERS: ADMIT Hospitalist; ATTEND Hospitalist
PROC: 5A1D70Z Performance of Urinary Filtration, Intermittent, Less than 6 Hours Per Day (ICD-10-PCS; principal; 2019-03-17)
DX: E11.51 Type 2 diabetes mellitus with diabetic peripheral angiopathy without gangrene (principal); I50.23 Acute on chronic systolic (congestive) heart failure; N18.6 End stage renal disease; L97.829 Non-pressure chronic ulcer of other part of left lower leg with unspecified severity; L97.819 Non-pressure chronic ulcer of other part of right lower leg with unspecified severity; L03.116 Cellulitis of left lower limb; L03.115 Cellulitis of right lower limb; E87.2 Acidosis; I13.2 Hypertensive heart and chronic kidney disease with heart failure and with stage 5 chronic kidney disease, or end stage renal disease; I48.20 Chronic atrial fibrillation, unspecified; E11.319 Type 2 diabetes mellitus with unspecified diabetic retinopathy without macular edema; E11.649 Type 2 diabetes mellitus with hypoglycemia without coma; D63.8 Anemia in other chronic diseases classified elsewhere; E11.22 Type 2 diabetes mellitus with diabetic chronic kidney disease; E11.42 Type 2 diabetes mellitus with diabetic polyneuropathy; E66.9 Obesity, unspecified; I87.2 Venous insufficiency (chronic) (peripheral); F32.9 Major depressive disorder, single episode, unspecified; F41.9 Anxiety disorder, unspecified; G40.909 Epilepsy, unspecified, not intractable, without status epilepticus; H54.8 Legal blindness, as defined in USA; I25.10 Atherosclerotic heart disease of native coronary artery without angina pectoris; J45.909 Unspecified asthma, uncomplicated; M06.9 Rheumatoid arthritis, unspecified; M19.90 Unspecified osteoarthritis, unspecified site; E83.89 Other disorders of mineral metabolism; G89.29 Other chronic pain; K21.9 Gastro-esophageal reflux disease without esophagitis; M54.9 Dorsalgia, unspecified; R79.89 Other specified abnormal findings of blood chemistry; Z68.34 Body mass index [BMI] 34.0-34.9, adult; Z79.4 Long term (current) use of insulin; Z79.51 Long term (current) use of inhaled steroids; Z79.82 Long term (current) use of aspirin; Z79.899 Other long term (current) drug therapy; Z87.01 Personal history of pneumonia (recurrent); Z87.891 Personal history of nicotine dependence; Z91.19 Patient's noncompliance with other medical treatment and regimen; Z99.2 Dependence on renal dialysis; Z98.42 Cataract extraction status, left eye; Z98.41 Cataract extraction status, right eye; Z96.1 Presence of intraocular lens; Z86.010 Personal history of colon polyps; Z83.3 Family history of diabetes mellitus; Z80.9 Family history of malignant neoplasm, unspecified; Z88.1 Allergy status to other antibiotic agents; Z88.2 Allergy status to sulfonamides
CPT/HCPCS: 36415; 71046; 80048; 80053; 83880; 84484; 85025; 85610; 85730; 87040; 87070; 87077; 87186; 87205; 90935; 93005; 93970; 94640; 96374; 99284

== ENCOUNTER 2019-05-17 05:42 | Inpatient (IN) | payer MEDICARE ==
[2019-05-17] MEDS ORDERED: LORazepam 2 MG/ML INJ IV STA (06:13)
[2019-05-17 06:30] LABS: Glucose,Whole Blood 95 mg/dL (75-99)
[2019-05-17 06:32] LABS: Basophils # (A) 0.1 k/uL (0-0.2); Basophils % (A) 1 %; Eosinophils # (A) 0.2 k/uL (0-0.7); Eosinophils % (A) 2 %; HCT 33.8 % (39.0-53.0); HGB 10.7 gm/dL (13.0-17.5); Hypochromasia Slight; Lymphocytes # (A) 0.7 k/uL (1.0-4.8); Lymphocytes % (A) 9 %; MCH 32.5 pg (25.0-35.0); MCHC 31.8 g/dL (31.0-37.0); Macrocytosis Slight; Mean Platelet Volume 9.1; Monocytes # (A) 0.5 k/uL (0-1.0); Monocytes % (A) 6 %; Neutrophils # (A) 6.8 k/uL (1.3-7.7); Neutrophils % (A) 81 %; Platelet Count 163 k/uL (150-450); RDW 15.9 % (11.5-15.5); WBC 8.4 k/uL (3.8-10.6)
--- NOTE | 2019-05-17 06:41 | XR ---
EXAMINATION TYPE: XR chest 2V DATE OF EXAM: 05/17/2019 COMPARISON: 03/15/2019 HISTORY: Difficulty breathing TECHNIQUE: 2 views FINDINGS: Heart is enlarged. There is pleural fluid and infiltrate left lower lobe. There is mild pul monary congestion. Bony thorax is intact. IMPRESSION: Left pleural effusion and left lower lobe pneumonia increased compared to last exam. No obvious heart failure.
[2019-05-17 06:42] LABS: Albumin 3.9 g/dL (3.5-5.0); Calcium 9.5 mg/dL (8.4-10.2); Magnesium 1.8 mg/dL (1.6-2.3); Potassium 3.7 mmol/L (3.5-5.1); Total Bilirubin 0.7 mg/dL (0.2-1.3); Total Protein 7.5 g/dL (6.3-8.2)
[2019-05-17 06:43] LABS: INR 1.1 (<1.2); Partial Thromboplastin Time 22.9 sec (22.0-30.0)
[2019-05-17 06:45] LABS: MCV 102.2 fL (80.0-100.0)
[2019-05-17 06:54] LABS: Glucose,Whole Blood 94 mg/dL (75-99)
--- NOTE | 2019-05-17 06:59 | ED ---
SOB HPI - General Chief Complaint: Shortness of Breath Stated Complaint: SOB Time Seen by Provider: 05/17/19 06:00 Source: patient, family, RN notes reviewed Mode of arrival: wheelchair Limitations: no limitations - History of Present Illness Initial Comments: This is a 68-year-old male presents emergency Department with chief complaint of low blood sugar, anxiety, shortness of breath. Patient states that he woke up was very anxious felt that his blood sugar was low it was between 80 and 90. Patient states that when his blood sugar slightly short of breath. Patient is time states he does feel improves but states she still feels slightly anxious. He does state that he has a known diabetic and which he states he is recently decreased his nighttime insulin. He is on current dialysis goes Sunday, Sunday, Sunday states he normally she'll yesterday with no difficulty. He does admit that he's had swelling of his lower legs with wounds that he had a nurse coming out from [facility] to take care of them. He is in the midst of following up with wound center. Patient denies any chest pain - Related Data Home Medications Medication Instructions Recorded Confirmed Etanercept [Enbrel] 50 mg SQ LUU 06/12/14 03/17/19 NIFEdipine [NIFEdipine ER] 60 mg PO DAILY 06/12/14 03/17/19 Aspirin EC [Ecotrin Low Dose] 81 mg PO DAILY 07/31/18 03/17/19 Gemfibrozil [Lopid] 600 mg PO BID 07/31/18 03/17/19 Budesonide-Formot 160-4.5 Mcg 2 puff INHALATION RT-BID 02/26/19 03/17/19 [Symbicort 160-4.5 Mcg Inhaler] Calcium Acetate [PhosLo] 2,001 mg PO TID-W/MEALS 02/26/19 03/17/19 Magnebind 250/300mg 1 tab PO BID-W/MEALS 02/26/19 03/17/19 Metoprolol Tartrate [Lopressor] 50 mg PO BID 02/26/19 03/17/19 Omeprazole 40 mg PO DAILY 02/26/19 03/17/19 Prorenal + D 1 tab PO DAILY 02/26/19 03/17/19 levOCARNitine [Levocarnitine] 330 mg PO TID-W/MEALS 02/26/19 03/17/19 Albuterol Nebulized [Ventolin 2.5 mg INHALATION RT-TID 03/17/19 03/17/19 Nebulized] Previous Rx's Medication Instructions Recorded Doxycycline Hyclate 100 mg PO BID #28 tab 03/20/19 Famotidine [Pepcid] 20 mg PO BID #30 tablet 03/20/19 Furosemide [Lasix] 80 mg PO BID@0900,1600 tab 03/20/19 Insulin Detemir (Levemir) [Levemir] 35 unit SQ HS syr 03/20/19 ALPRAZolam [Xanax] 0.25 mg PO TID PRN 3 Days #9 tab 05/17/19 Allergies Allergy/AdvReac Type Severity Reaction Status Date / Time sulfamethoxazole AdvReac Unknown Nausea & Verified 05/17/19 05:48 [From Bactrim] Vomiting trimethoprim [From Bactrim] AdvReac Unknown Nausea & Verified 05/17/19 05:48 Vomiting Review of Systems ROS Statement: Those systems with pertinent positive or pertinent negative responses have been documented in the HPI. ROS Other: All systems not noted in ROS Statement are negative. Past Medical History Past Medical History: Atrial Fibrillation, Asthma, Heart Failure, Diabetes Mellitus, Dialysis, Eye Disorder, GERD/Reflux, Hypertension, Osteoarthritis (OA), Pneumonia, Renal Disease, Rheumatoid Arthritis (RA), Seizure Disorder Additional Past Medical History / Comment(s): ESRD with hemodialysis, mineral bone disease, chronic anemia, IDDM type II, diabetic retinopathy-"legally blind", chronic neuropathy occasionally in toes bilateral feet and left leg, bilateral lower leg edema, cellulitis bilateral lower legs, past leg/foot wounds and currently has left medial leg wounds that have scabbed over and no longer goes to [facility], paroxysmal Afib, 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 History of Any Multi-Drug Resistant Organisms: None Reported Past Surgical History: Hernia Repair, Orthopedic Surgery Additional Past Surgical History / Comment(s): Bilateral cataract surgery, insertion dialysis catheter left arm then had a procedure done to dialysis catheter at [facility]-cannot recall exactly what was done, PICC line insertion/removed, bilateral inguinal hernina repairs, colonoscopy/polypectomy, R shoulder rotator cuff repair, debridements bilateral feet. Past Anesthesia/Blood Transfusion Reactions: No Reported Reaction Additional Past Anesthesia/Blood Transfusion Reaction / Comment(s): Pt received blood in past without reaction. Past Psychological History: Anxiety, Depression Smoking Status: Former smoker Past Alcohol Use History: None Reported Past Drug Use History: None Reported - Past Family History Mother Family Medical History: Diabetes Mellitus Father Family Medical History: Cancer Additional Family Medical History / Comment(s): Metastatic cancer. Pt cannot recall primary. General Exam Limitations: no limitations General appearance: alert, in no apparent distress Head exam: Present: atraumatic, normocephalic, normal inspection Eye exam: Present: normal appearance, PERRL, EOMI. Absent: scleral icterus, conjunctival injection, periorbital swelling ENT exam: Present: normal exam, normal oropharynx, mucous membranes moist, TM's normal bilaterally, normal external ear exam Neck exam: Present: normal inspection, full ROM. Absent: tenderness, meningismus, lymphadenopathy Respiratory exam: Present: rales. Absent: normal lung sounds bilaterally, respiratory distress, wheezes, rhonchi, stridor Cardiovascular Exam: Present: regular rate, normal rhythm, normal heart sounds. Absent: systolic murmur, diastolic murmur, rubs, gallop, clicks Extremities exam: Present: other (Mild swelling of the lower extremities with some healing wounds noted) Neurological exam: Present: alert, oriented X3 Psychiatric exam: Present: anxious Skin exam: Present: warm, dry, intact, normal color. Absent: rash Course Vital Signs 05/17/19 05/17/19 05/17/19 05:45 05:54 05:59 Temperature 98.4 F 98.0 F Pulse Rate 75 72 Respiratory 20 23 20 Rate Blood Pressure 132/48 149/70 O2 Sat by Pulse 95 97 Oximetry 05/17/19 06:48 Temperature Pulse Rate 71 Respiratory 18 Rate Blood Pressure 158/79 O2 Sat by Pulse 97 Oximetry Medical Decision Making - Medical Decision Making 68-year-old male presented to his blood sugar. Patient lab revealed no evidence of leukocytosis. Patient's chronic renal failure not worsened usual. BNP is mildly elevated though is chronically elevated along with troponin. Patient has no complaints of chest pain he states he has no current shortness of breath he's had no recent URI symptoms chest x-ray showed probability of left pleural effusion and pneumonia though clinically he does not have pneumonia he is afebrile, no leukocytosis and no URI symptoms. Patient does report that the Ativan helped his anxiety and his symptoms have resolved. Patient will be discharged in stable condition return parameters were discussed. - Lab Data Result diagrams: 05/17/19 06:20 05/17/19 06:20 Lab Results 05/17/19 05/17/19 05/17/19 Range/Units 06:20 06:20 06:20 WBC 8.4 (3.8-10.6) k/uL RBC 3.30 L (4.30-5.90) m/uL Hgb 10.7 L (13.0-17.5) gm/dL Hct 33.8 L (39.0-53.0) % MCV 102.2 H D (80.0-100.0) fL MCH 32.5 (25.0-35.0) pg MCHC 31.8 (31.0-37.0) g/dL RDW 15.9 H (11.5-15.5) % Plt Count 163 (150-450) k/uL Neutrophils % 81 % Lymphocytes % 9 % Monocytes % 6 % Eosinophils % 2 % Basophils % 1 % Neutrophils # 6.8 (1.3-7.7) k/uL Lymphocytes # 0.7 L (1.0-4.8) k/uL Monocytes # 0.5 (0-1.0) k/uL Eosinophils # 0.2 (0-0.7) k/uL Basophils # 0.1 (0-0.2) k/uL Hypochromasia Slight Macrocytosis Slight PT (9.0-12.0) sec INR (<1.2) APTT (22.0-30.0) sec Sodium 141 (137-145) mmol/L Potassium 3.7 (3.5-5.1) mmol/L Chloride 95 L (98-107) mmol/L Carbon Dioxide 31 H (22-30) mmol/L Anion Gap 15 mmol/L BUN 33 H (9-20) mg/dL Creatinine 4.00 H (0.66-1.25) mg/dL Est GFR (CKD-EPI)AfAm 16 (>60 ml/min/1.73 sqM) Est GFR (CKD-EPI)NonAf 14 (>60 ml/min/1.73 sqM) Glucose 81 (74-99) mg/dL POC Glucose (mg/dL) (75-99) mg/dL POC Glu Electronic Typesetting Machine Operator ID Calcium 9.5 (8.4-10.2) mg/dL Magnesium 1.8 (1.6-2.3) mg/dL Total Bilirubin 0.7 (0.2-1.3) mg/dL AST 22 (17-59) U/L ALT 13 (4-49) U/L Alkaline Phosphatase 123 (38-126) U/L Troponin I (0.000-0.034) ng/mL NT-Pro-B Natriuret Pep 18015 pg/mL Total Protein 7.5 (6.3-8.2) g/dL Albumin 3.9 (3.5-5.0) g/dL 05/17/19 05/17/19 05/17/19 Range/Units 06:20 06:22 06:27 WBC (3.8-10.6) k/uL RBC (4.30-5.90) m/uL Hgb (13.0-17.5) gm/dL Hct (39.0-53.0) % MCV (80.0-100.0) fL MCH (25.0-35.0) pg MCHC (31.0-37.0) g/dL RDW (11.5-15.5) % Plt Count (150-450) k/uL Neutrophils % % Lymphocytes % % Monocytes % % Eosinophils % % Basophils % % Neutrophils # (1.3-7.7) k/uL Lymphocytes # (1.0-4.8) k/uL Monocytes # (0-1.0) k/uL Eosinophils # (0-0.7) k/uL Basophils # (0-0.2) k/uL Hypochromasia Macrocytosis PT 11.0 (9.0-12.0) sec INR 1.1 (<1.2) APTT 22.9 (22.0-30.0) sec Sodium (137-145) mmol/L Potassium (3.5-5.1) mmol/L Chloride (98-107) mmol/L Carbon Dioxide (22-30) mmol/L Anion Gap mmol/L BUN (9-20) mg/dL Creatinine (0.66-1.25) mg/dL Est GFR (CKD-EPI)AfAm (>60 ml/min/1.73 sqM) Est GFR (CKD-EPI)NonAf (>60 ml/min/1.73 sqM) Glucose (74-99) mg/dL POC Glucose (mg/dL) 95 (75-99) mg/dL POC Glu Electronic Typesetting Machine Operator ID Lorna Ambriz Calcium (8.4-10.2) mg/dL Magnesium (1.6-2.3) mg/dL Total Bilirubin (0.2-1.3) mg/dL AST (17-59) U/L ALT (4-49) U/L Alkaline Phosphatase (38-126) U/L Troponin I 0.035 H* (0.000-0.034) ng/mL NT-Pro-B Natriuret Pep pg/mL Total Protein (6.3-8.2) g/dL Albumin (3.5-5.0) g/dL 05/17/19 Range/Units 06:53 WBC (3.8-10.6) k/uL RBC (4.30-5.90) m/uL Hgb (13.0-17.5) gm/dL Hct (39.0-53.0) % MCV (80.0-100.0) fL MCH (25.0-35.0) pg MCHC (31.0-37.0) g/dL RDW (11.5-15.5) % Plt Count (150-450) k/uL Neutrophils % % Lymphocytes % % Monocytes % % Eosinophils % % Basophils % % Neutrophils # (1.3-7.7) k/uL Lymphocytes # (1.0-4.8) k/uL Monocytes # (0-1.0) k/uL Eosinophils # (0-0.7) k/uL Basophils # (0-0.2) k/uL Hypochromasia Macrocytosis PT (9.0-12.0) sec INR (<1.2) APTT (22.0-30.0) sec Sodium (137-145) mmol/L Potassium (3.5-5.1) mmol/L Chloride (98-107) mmol/L Carbon Dioxide (22-30) mmol/L Anion Gap mmol/L BUN (9-20) mg/dL Creatinine (0.66-1.25) mg/dL Est GFR (CKD-EPI)AfAm (>60 ml/min/1.73 sqM) Est GFR (CKD-EPI)NonAf (>60 ml/min/1.73 sqM) Glucose (74-99) mg/dL POC Glucose (mg/dL) 94 (75-99) mg/dL POC Glu Electronic Typesetting Machine Operator ID Deya Ross Calcium (8.4-10.2) mg/dL Magnesium (1.6-2.3) mg/dL Total Bilirubin (0.2-1.3) mg/dL AST (17-59) U/L ALT (4-49) U/L Alkaline Phosphatase (38-126) U/L Troponin I (0.000-0.034) ng/mL NT-Pro-B Natriuret Pep pg/mL Total Protein (6.3-8.2) g/dL Albumin (3.5-5.0) g/dL Disposition Clinical Impression: Anxiety, Chronic renal failure, Bilateral edema of lower extremity Disposition: HOME SELF-CARE Condition: Stable Instructions (If sedation given, give patient instructions): Generalized Anxiety Disorder (ED) Additional Instructions: Please return to the Emergency Department if symptoms worsen or any other con cerns. Prescriptions: ALPRAZolam [Xanax] 0.25 mg PO TID PRN 3 Days #9 tab PRN Reason: anxiety Is patient prescribed a controlled substance at d/c from ED?: No Referrals: Nell Rosen MD [Primary Care Provider] - 1-2 days Time of Disposition: 07:27
[2019-05-17] MEDS ORDERED: ONDANSETRON 4 MG/2 ML VIAL IVP PRN (07:50)
[2019-05-17] MEDS ORDERED: ACETAMINOPHEN TAB 325 MG TAB PO PRN (07:50)
--- NOTE | 2019-05-17 07:50 | ED ---
Medical Decision Making - Medical Decision Making As the patient was being discharged he asked nurse to change the dressings on his feet that we are not aware of. These were unwrapped, there are found to have multiple wounds of the lower extremity and chronic toes. Patient states that he was having home health care nurse but stopped within last week stating that he was better. Patient will be admitted for chronic digits, diabetic ulcers and further evaluation - Lab Data Result diagrams: 05/17/19 06:20 05/17/19 06:20 Lab Results 05/17/19 05/17/19 05/17/19 Range/Units 06:20 06:20 06:20 WBC 8.4 (3.8-10.6) k/uL RBC 3.30 L (4.30-5.90) m/uL Hgb 10.7 L (13.0-17.5) gm/dL Hct 33.8 L (39.0-53.0) % MCV 102.2 H D (80.0-100.0) fL MCH 32.5 (25.0-35.0) pg MCHC 31.8 (31.0-37.0) g/dL RDW 15.9 H (11.5-15.5) % Plt Count 163 (150-450) k/uL Neutrophils % 81 % Lymphocytes % 9 % Monocytes % 6 % Eosinophils % 2 % Basophils % 1 % Neutrophils # 6.8 (1.3-7.7) k/uL Lymphocytes # 0.7 L (1.0-4.8) k/uL Monocytes # 0.5 (0-1.0) k/uL Eosinophils # 0.2 (0-0.7) k/uL Basophils # 0.1 (0-0.2) k/uL Hypochromasia Slight Macrocytosis Slight PT (9.0-12.0) sec INR (<1.2) APTT (22.0-30.0) sec Sodium 141 (137-145) mmol/L Potassium 3.7 (3.5-5.1) mmol/L Chloride 95 L (98-107) mmol/L Carbon Dioxide 31 H (22-30) mmol/L Anion Gap 15 mmol/L BUN 33 H (9-20) mg/dL Creatinine 4.00 H (0.66-1.25) mg/dL Est GFR (CKD-EPI)AfAm 16 (>60 ml/min/1.73 sqM) Est GFR (CKD-EPI)NonAf 14 (>60 ml/min/1.73 sqM) Glucose 81 (74-99) mg/dL POC Glucose (mg/dL) (75-99) mg/dL POC Glu Foreign Student Adviser ID Calcium 9.5 (8.4-10.2) mg/dL Magnesium 1.8 (1.6-2.3) mg/dL Total Bilirubin 0.7 (0.2-1.3) mg/dL AST 22 (17-59) U/L ALT 13 (4-49) U/L Alkaline Phosphatase 123 (38-126) U/L Troponin I (0.000-0.034) ng/mL NT-Pro-B Natriuret Pep 42088 pg/mL Total Protein 7.5 (6.3-8.2) g/dL Albumin 3.9 (3.5-5.0) g/dL 05/17/19 05/17/19 05/17/19 Range/Units 06:20 06:22 06:27 WBC (3.8-10.6) k/uL RBC (4.30-5.90) m/uL Hgb (13.0-17.5) gm/dL Hct (39.0-53.0) % MCV (80.0-100.0) fL MCH (25.0-35.0) pg MCHC (31.0-37.0) g/dL RDW (11.5-15.5) % Plt Count (150-450) k/uL Neutrophils % % Lymphocytes % % Monocytes % % Eosinophils % % Basophils % % Neutrophils # (1.3-7.7) k/uL Lymphocytes # (1.0-4.8) k/uL Monocytes # (0-1.0) k/uL Eosinophils # (0-0.7) k/uL Basophils # (0-0.2) k/uL Hypochromasia Macrocytosis PT 11.0 (9.0-12.0) sec INR 1.1 (<1.2) APTT 22.9 (22.0-30.0) sec Sodium (137-145) mmol/L Potassium (3.5-5.1) mmol/L Chloride (98-107) mmol/L Carbon Dioxide (22-30) mmol/L Anion Gap mmol/L BUN (9-20) mg/dL Creatinine (0.66-1.25) mg/dL Est GFR (CKD-EPI)AfAm (>60 ml/min/1.73 sqM) Est GFR (CKD-EPI)NonAf (>60 ml/min/1.73 sqM) Glucose (74-99) mg/dL POC Glucose (mg/dL) 95 (75-99) mg/dL POC Glu Foreign Student Adviser ID Lorna Ambriz Calcium (8.4-10.2) mg/dL Magnesium (1.6-2.3) mg/dL Total Bilirubin (0.2-1.3) mg/dL AST (17-59) U/L ALT (4-49) U/L Alkaline Phosphatase (38-126) U/L Troponin I 0.035 H* (0.000-0.034) ng/mL NT-Pro-B Natriuret Pep pg/mL Total Protein (6.3-8.2) g/dL Albumin (3.5-5.0) g/dL 05/17/19 Range/Units 06:53 WBC (3.8-10.6) k/uL RBC (4.30-5.90) m/uL Hgb (13.0-17.5) gm/dL Hct (39.0-53.0) % MCV (80.0-100.0) fL MCH (25.0-35.0) pg MCHC (31.0-37.0) g/dL RDW (11.5-15.5) % Plt Count (150-450) k/uL Neutrophils % % Lymphocytes % % Monocytes % % Eosinophils % % Basophils % % Neutrophils # (1.3-7.7) k/uL Lymphocytes # (1.0-4.8) k/uL Monocytes # (0-1.0) k/uL Eosinophils # (0-0.7) k/uL Basophils # (0-0.2) k/uL Hypochromasia Macrocytosis PT (9.0-12.0) sec INR (<1.2) APTT (22.0-30.0) sec Sodium (137-145) mmol/L Potassium (3.5-5.1) mmol/L Chloride (98-107) mmol/L Carbon Dioxide (22-30) mmol/L Anion Gap mmol/L BUN (9-20) mg/dL Creatinine (0.66-1.25) mg/dL Est GFR (CKD-EPI)AfAm (>60 ml/min/1.73 sqM) Est GFR (CKD-EPI)NonAf (>60 ml/min/1.73 sqM) Glucose (74-99) mg/dL POC Glucose (mg/dL) 94 (75-99) mg/dL POC Glu Foreign Student Adviser ID Deya Ross Calcium (8.4-10.2) mg/dL Magnesium (1.6-2.3) mg/dL Total Bilirubin (0.2-1.3) mg/dL AST (17-59) U/L ALT (4-49) U/L Alkaline Phosphatase (38-126) U/L Troponin I (0.000-0.034) ng/mL NT-Pro-B Natriuret Pep pg/mL Total Protein (6.3-8.2) g/dL Albumin (3.5-5.0) g/dL Disposition Clinical Impression: Anxiety, Chronic renal failure, Bilateral edema of lower extremity, Pleural ef fusion, Dyspnea, Diabetic foot ulcer, CHF (congestive heart failure) Disposition: ADMITTED IP TO THIS HOSP Condition: Fair Additional Instructions: Please return to the Emergency Department if symptoms worsen or any other concerns. Prescriptions: ALPRAZolam [Xanax] 0.25 mg PO TID PRN 3 Days #9 tab PRN Reason: anxiety Referrals: Nell Rosen MD [Primary Care Provider] - 1-2 days
[2019-05-17] MEDS ORDERED: PIPERACILLIN-TAZOBACTAM 3.375 GM in SODIUM CHLORIDE 0.9% 100 ML IVPB STA (07:54)
[2019-05-17] MEDS ORDERED: VANCOMYCIN IV PER PHARMACY 1 EACH MISC MISCELLANE PRN (07:54)
[2019-05-17] MEDS ORDERED: HEPARIN SODIUM,PORCINE 5,000 UNIT/ML 1 ML VIAL IV ONE (07:58)
[2019-05-17] MEDS ORDERED: HEPARIN SODIUM,PORCINE 5,000 UNIT/ML 1 ML VIAL IV PRN (07:58)
[2019-05-17] MEDS ORDERED: FUROSEMIDE 10 MG/ML 4 ML VIAL IV STA (07:59)
[2019-05-17] MEDS ORDERED: HEPARIN SOD,PORK IN 0.45% NACL 25,000 UNIT in 0.45% NACL 1 250ML.BAG IV SCH (08:00)
[2019-05-17] MEDS ORDERED: VANCOMYCIN 2,000 MG in SODIUM CHLORIDE 0.9% 500 ML 500 ML IVPB STA (08:00)
--- NOTE | 2019-05-17 08:26 | XR ---
EXAMINATION TYPE: XR foot complete bilateral , 6 VIEWS DATE OF EXAM ORDERED: 05/17/2019 HISTORY: Multiple diabetic foot ulcers. COMPARISON: Previous study of the left foot dated 05/04/2018. FINDINGS: There is bony remodeling in the distal aspect of the left fifth metatarsal. There is a aj osteal new bone. This is likely the result of previous osteomyelitis. There are degenerative changes in the left first MTP joint. There is vascular calcification present. Plantar calcaneal spur. On the right, there is a mild hallux valgus deformity as well as some degenerative change in the righ t first MTP joint. There is some loss of definition of the cortex along the distal aspect of the righ t fifth metatarsal. No tonio bony destruction is noted on the right. There is a prominent plantar agustin caneal spur on the right. There is vascular calcification.. IMPRESSION: 1. SEQUELA OF PREVIOUS OSTEOMYELITIS IN THE DISTAL ASPECT OF THE LEFT FIFTH MTP JOINT. 2. I COULD NOT EXCLUDE OSTEOMYELITIS IN THE RIGHT FIRST MTP JOINT DISTALLY. 3. BILATERAL PLANTAR CALCANEAL SPURS. 4. MILD DEGENERATIVE CHANGES IN FIRST MTP JOINT BILATERALLY.
--- NOTE | 2019-05-17 09:51 | P.NPCON ---
History of Present Illness - Reason for Consult end stage renal disease - History of Present Illness Reason for consultation: End-stage renal disease History of present illness: Patient is a 68-year-old male seen in renal consultation for end-stage renal disease. He is maintained on hemodialysis on Sunday schedule. Patient states he completed his hemodialysis treatment yesterday without any problems. Patient states this morning he felt weak and somewhat short of breath. Patient was concerned that his blood sugar was low and states it was around 80-90. He denies any syncopal episodes. Patient states that this range of blood sugar is low for him. Denies nausea vomiting. Admits to a dry cough. Hemodynamically stable. No abdominal pain. Patient does have edema in his lowe r extremities. He does have wounds in his lower extremities and is currently maintained on IV vancomycin. Hemoglobin 10.7. Potassium level 3.7. Patient is afebrile. Vital signs are stable. General: The patient appeared well nourished and normally developed. HEENT: Head exam is unremarkable. Neck is without jugular venous distension. LUNGS: Lungs are clear to auscultation and percussion. Breath sounds decreased. HEART: Rate and Rhythm are regular. First and second heart sounds normal. No mu rmurs, rubs or gallops. ABDOMEN: Abdominal exam reveals normal bowel sounds. Non-tender and non-dis tended. No evidence of peritonitis. EXTREMITITES: 2+ edema. Wrapped. No drainage. Past Medical History Past Medical History: Atrial Fibrillation, Asthma, Heart Failure, Diabetes Mellitus, Dialysis, Eye Disorder, GERD/Reflux, Hypertension, Osteoarthritis (OA) , Pneumonia, Renal Disease, Rheumatoid Arthritis (RA), Seizure Disorder Additional Past Medical History / Comment(s): ESRD with hemodialysis, mineral bone disease, chronic anemia, IDDM type II, diabetic retinopathy-"legally blind", chronic neuropathy occasionally in toes bilateral feet and left leg, bilateral lower leg edema, cellulitis bilateral lower legs, past leg/foot wounds and currently has left medial leg wounds that have scabbed over and no longer goes to [facility], paroxysmal Afib, 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 History of Any Multi-Drug Resistant Organisms: None Reported Past Surgical History: Hernia Repair, Orthopedic Surgery Additional Past Surgical History / Comment(s): Bilateral cataract surgery, insertion dialysis catheter left arm then had a procedure done to dialysis catheter at [facility]-cannot recall exactly what was done, PICC line insertion/removed, bilateral inguinal hernina repairs, colonoscopy/polypectomy, R shoulder rotator cuff repair, debridements bilateral feet. Past Anesthesia/Blood Transfusion Reactions: No Reported Reaction Additional Past Anesthesia/Blood Transfusion Reaction / Comment(s): Pt received blood in past without reaction. Past Psychological History: Anxiety, Depression Smoking Status: Former smoker Past Alcohol Use History: None Reported Past Drug Use History: None Reported - Past Family History Mother Family Medical History: Diabetes Mellitus Father Family Medical History: Cancer Additional Family Medical History / Comment(s): Metastatic cancer. Pt cannot recall primary. Medications and Allergies Home Medications Medication Instructions Recorded Confirmed Type Etanercept [Enbrel] 50 mg SQ LUU 06/12/14 05/17/19 History NIFEdipine [NIFEdipine ER] 60 mg PO DAILY 06/12/14 05/17/19 History Aspirin EC [Ecotrin Low Dose] 81 mg PO DAILY 07/31/18 05/17/19 History Gemfibrozil [Lopid] 600 mg PO BID 07/31/18 05/17/19 History Budesonide-Formot 160-4.5 Mcg 2 puff INHALATION RT-BID 02/26/19 05/17/19 History [Symbicort 160-4.5 Mcg Inhaler] Calcium Acetate [PhosLo] 1,334 mg PO TID-W/MEALS 02/26/19 05/17/19 History Magnebind 250/300mg 1 tab PO BID-W/MEALS 02/26/19 05/17/19 History Metoprolol Tartrate [Lopressor] 50 mg PO BID 02/26/19 05/17/19 History Omeprazole 40 mg PO DAILY 02/26/19 05/17/19 History Prorenal + D 1 tab PO DAILY 02/26/19 05/17/19 History Albuterol Nebulized [Ventolin 2.5 mg INHALATION RT-QID 03/17/19 05/17/19 History Nebulized] Famotidine [Pepcid] 20 mg PO BID #30 tablet 03/20/19 05/17/19 Rx Furosemide [Lasix] 80 mg PO BID@0900,1600 tab 03/20/19 05/17/19 Rx Insulin Detemir (Levemir) [Levemir] 35 unit SQ HS syr 03/20/19 05/17/19 Rx ALPRAZolam [Xanax] 0.25 mg PO TID PRN 3 Days #9 tab 05/17/19 Rx Allergies Allergy/AdvReac Type Severity Reaction Status Date / Time sulfamethoxazole AdvReac Unknown Nausea & Verified 05/17/19 08:36 [From Bactrim] Vomiting trimethoprim [From Bactrim] AdvReac Unknown Nausea & Verified 05/17/19 08:36 Vomiting Physical Exam Vitals: Vital Signs Temp Pulse Resp BP Pulse Ox 05/17/19 08:39 98.1 F 69 16 158/79 97 05/17/19 06:48 71 18 158/79 97 05/17/19 05:59 20 05/17/19 05:54 98.0 F 72 23 149/70 97 05/17/19 05:45 98.4 F 75 20 132/48 95 Intake and Output 05/16/19 05/17/19 05/17/19 22:59 06:59 14:59 Other: Weight 122.47 kg Results - Lab Results Most recent lab results Calcium 9.5 mg/dL (8.4-10.2) 05/17/19 06:20 Magnesium 1.8 mg/dL (1.6-2.3) 05/17/19 06:20 05/17/19 06:20 05/17/19 06:20 Assessment and Plan Plan: Assessment: 1. End-stage renal disease maintained on hemodialysis on Sunday schedule. 2. Lower extremity wounds maintained on antibiotics. 3. Insulin-dependent diabetes mellitus. 4. Volume overload. 5. Chronic kidney disease mineral bone disease. Plan: 2-hr hemodialysis treatment today mostly for ultrafiltration. Home antihypertensives and phosphate binders to be resumed. Follow-up cultures. Thank you for the consultation. I will continue to follow the patient with you during his hospital stay.
[2019-05-17 12:04] LABS: Glucose,Whole Blood 87 mg/dL (75-99)
--- NOTE | 2019-05-17 13:01 | P.GSCN ---
History of Present Illness Consult date: 05/17/19 Reason for Consult: lower extremity wounds History of present illness: 68-year-old gentleman originally presented to the emergency department secondary to low blood sugar, anxiety and shortness of breath. He does have a history of renal failure currently on hemodialysis via left upper extremity fistula. Upon evaluation in the emergency department he was deemed stable for discharge and then prior to leaving he asked for evaluation of his lower extremity wounds. He has been followed and treated at a home healthcare nurse previously for his swelling and lower extremity wounds. Patient states his wounds have not changed since his last visit with the nurse. He does admit to having lower extremity swelling as well as black areas noted on his toes. He denies any pain in his feet consistent of rest pain. He denies any fevers, chills, chest pain. Review of Systems All systems: negative (What is mentioned in HPI past medical history) Past Medical History Past Medical History: Atrial Fibrillation, Asthma, Heart Failure, Diabetes Mellitus, Dialysis, Eye Disorder, GERD/Reflux, Hypertension, Osteoarthritis (OA), Pneumonia, Renal Disease, Rheumatoid Arthritis (RA), Seizure Disorder Additional Past Medical History / Comment(s): ESRD with hemodialysis, mineral bone disease, chronic anemia, IDDM type II, diabetic retinopathy-"legally blind", chronic neuropathy occasionally in toes bilateral feet and left leg, bilateral lower leg edema, cellulitis bilateral lower legs, past leg/foot wounds and currently has left medial leg wounds that have scabbed over and no longer goes to [facility], paroxysmal Afib, 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 History of Any Multi-Drug Resistant Organisms: None Reported Past Surgical History: Hernia Repair, Orthopedic Surgery Additional Past Surgical History / Comment(s): Bilateral cataract surgery, insertion dialysis catheter left arm then had a procedure done to dialysis catheter at [facility]-cannot recall exactly what was done, PICC line insertion/removed, bilateral inguinal hernina repairs, colonoscopy/polypectomy, R shoulder rotator cuff repair, debridements bilateral feet. Past Anesthesia/Blood Transfusion Reactions: No Reported Reaction Additional Past Anesthesia/Blood Transfusion Reaction / Comm: Pt received blood in past without reaction. Past Psychological History: Anxiety, Depression Smoking Status: Former smoker Past Alcohol Use History: None Reported Past Drug Use History: None Reported - Past Family History Mother Family Medical History: Diabetes Mellitus Father Family Medical History: Cancer Additional Family Medical History / Comment(s): Metastatic cancer. Pt cannot recall primary. Medications and Allergies Home Medications Medication Instructions Recorded Confirmed Type Etanercept [Enbrel] 50 mg SQ LUU 06/12/14 05/17/19 History NIFEdipine [NIFEdipine ER] 60 mg PO DAILY 06/12/14 05/17/19 History Aspirin EC [Ecotrin Low Dose] 81 mg PO DAILY 07/31/18 05/17/19 History Gemfibrozil [Lopid] 600 mg PO BID 07/31/18 05/17/19 History Budesonide-Formot 160-4.5 Mcg 2 puff INHALATION RT-BID 02/26/19 05/17/19 History [Symbicort 160-4.5 Mcg Inhaler] Calcium Acetate [PhosLo] 1,334 mg PO TID-W/MEALS 02/26/19 05/17/19 History Magnebind 250/300mg 1 tab PO BID-W/MEALS 02/26/19 05/17/19 History Metoprolol Tartrate [Lopressor] 50 mg PO BID 02/26/19 05/17/19 History Omeprazole 40 mg PO DAILY 02/26/19 05/17/19 History Prorenal + D 1 tab PO DAILY 02/26/19 05/17/19 History Albuterol Nebulized [Ventolin 2.5 mg INHALATION RT-QID 03/17/19 05/17/19 History Nebulized] Famotidine [Pepcid] 20 mg PO BID #30 tablet 03/20/19 05/17/19 Rx Furosemide [Lasix] 80 mg PO BID@0900,1600 tab 03/20/19 05/17/19 Rx Insulin Detemir (Levemir) [Levemir] 35 unit SQ HS syr 03/20/19 05/17/19 Rx ALPRAZolam [Xanax] 0.25 mg PO TID PRN 3 Days #9 tab 05/17/19 Rx Allergies Allergy/AdvReac Type Severity Reaction Status Date / Time sulfamethoxazole AdvReac Unknown Nausea & Verified 05/17/19 08:36 [From Bactrim] Vomiting trimethoprim [From Bactrim] AdvReac Unknown Nausea & Verified 05/17/19 08:36 Vomiting Surgical - Exam Vital Signs Temp Pulse Resp BP Pulse Ox 98.4 F 75 20 132/48 95 05/17/19 05:45 05/17/19 05:45 05/17/19 05:45 05/17/19 05:45 05/17/19 05:45 Multiphasic PT signals bilaterally. Palpable femoral pulses bilaterally. There is diminished right DP signal which is monophasic. There is no evidence of DP signal on the left. Multiple skin excoriations noted throughout bilateral lower extremities. There is a 2 x 2 centimeter venous also noted on the left medial aspect of the calf. Mild erythema throughout the lower extremity is with 2+ pitting edema. Multiple distal areas of dry gangrene involving the toes, no areas of active infection or drainage. Left upper extremity basilic vein transposition fistula has a palpable thrill and good augmentation. - General well developed, well nourished, no distress - Eyes PERRL, normal ocular movement - ENT normal nares - Respiratory normal expansion, normal respiratory effort - Cardiovascular Rhythm: regular - Abdomen Abdomen: soft, non tender - Neurologic normal sensation - Psychiatric oriented to time, oriented to person, oriented to place, speech is normal Results - Labs 05/17/19 06:20 05/17/19 06:20 Abnormal Lab Results - Last 24 Hours (Table) 05/17/19 05/17/19 05/17/19 Range/Units 06:20 06:20 06:22 RBC 3.30 L (4.30-5.90) m/uL Hgb 10.7 L (13.0-17.5) gm/dL Hct 33.8 L (39.0-53.0) % MCV 102.2 H D (80.0-100.0) fL RDW 15.9 H (11.5-15.5) % Lymphocytes # 0.7 L (1.0-4.8) k/uL Chloride 95 L (98-107) mmol/L Carbon Dioxide 31 H (22-30) mmol/L BUN 33 H (9-20) mg/dL Creatinine 4.00 H (0.66-1.25) mg/dL Troponin I 0.035 H* (0.000-0.034) ng/mL Diabetes panel 05/17/19 Range/Units 06:20 Sodium 141 (137-145) mmol/L Potassium 3.7 (3.5-5.1) mmol/L Chloride 95 L (98-107) mmol/L Carbon Dioxide 31 H (22-30) mmol/L BUN 33 H (9-20) mg/dL Creatinine 4.00 H (0.66-1.25) mg/dL Glucose 81 (74-99) mg/dL Calcium 9.5 (8.4-10.2) mg/dL AST 22 (17-59) U/L ALT 13 (4-49) U/L Alkaline Phosphatase 123 (38-126) U/L Total Protein 7.5 (6.3-8.2) g/dL Albumin 3.9 (3.5-5.0) g/dL Calcium panel 05/17/19 Range/Units 06:20 Calcium 9.5 (8.4-10.2) mg/dL Albumin 3.9 (3.5-5.0) g/dL Pituitary panel 05/17/19 Range/Units 06:20 Sodium 141 (137-145) mmol/L Potassium 3.7 (3.5-5.1) mmol/L Chloride 95 L (98-107) mmol/L Carbon Dioxide 31 H (22-30) mmol/L BUN 33 H (9-20) mg/dL Creatinine 4.00 H (0.66-1.25) mg/dL Glucose 81 (74-99) mg/dL Calcium 9.5 (8.4-10.2) mg/dL Adrenal panel 05/17/19 Range/Units 06:20 Sodium 141 (137-145) mmol/L Potassium 3.7 (3.5-5.1) mmol/L Chloride 95 L (98-107) mmol/L Carbon Dioxide 31 H (22-30) mmol/L BUN 33 H (9-20) mg/dL Creatinine 4.00 H (0.66-1.25) mg/dL Glucose 81 (74-99) mg/dL Calcium 9.5 (8.4-10.2) mg/dL Total Bilirubin 0.7 (0.2-1.3) mg/dL AST 22 (17-59) U/L ALT 13 (4-49) U/L Alkaline Phosphatase 123 (38-126) U/L Total Protein 7.5 (6.3-8.2) g/dL Albumin 3.9 (3.5-5.0) g/dL Assessment and Plan Assessment: #1 left lower extremity venous ulcer #2 bilateral toe dry gangrene #3 chronic venous insufficiency #4 peripheral arterial disease #5 type 2 diabetes #6 end-stage renal disease on hemodialysis Plan: No acute vascular intervention required at this time. I did discuss with the patient the importance of local wound care and elevation of his lower extremities as well as compression for his venous disease. I recommend continue d local wound care per his wound care nurse as well as follow-up in the office for evaluation of his lower extremity arterial disease as well as continued workup for his chronic venous insufficiency. He may be of benefit of vascular intervention both from a venous aspect as well as an arterial aspect both of which can be performed on an outpatient basis. He will follow up in 2-4 weeks in the office where we will continue to monitor his vascular disease. Thank you for allowing me to participate in your patient's care.
[2019-05-17] MEDS: ALBUTEROL NEBULIZED 2.5 MG/3 ML INHALATION SCH ×2 (15:35→21:47)
--- NOTE | 2019-05-17 16:32 | P.CRDCN ---
History of Present Illness Consult date: 05/17/19 Consult reason: congestive heart failure Chief complaint: CHF History of present illness: HISTORY OF PRESENT ILLNESS AND PLAN: This is a 68-year-old male with history of GERD, hypertension, RA, diabetic retinopathy, Atrial fibrillation, heart failure, failure with dialysis Sunday/Sunday/Sunday, diabetes mellitus, chronic lower extremity wounds/stasis ulcers and osteomyelitis history. Patient presents to ER with complaints of low blood sugar and increasing shortness of breath with lower extremity edema. Patient currently sitting at bedside in no acute distress eating his lunch. Patient has no current complaints of chest pain, chest pressure, shortness of breath or palpitations. Patient states he historically has followed with cardiology but has been quite some time. Most recent echo in 2015 shows ejection fraction at 55-60%. Patient compliant with dialysis treatment Sunday/Sunday/Sunday. Patient also followed with wound care for lower extremity wounds/ulcers on outpatient basis. Patient EKG showed atrial fibrillation, heart rate 72. Troponin mildly elevated at 0.035. Patient does get exertional shortness of breath with activity. Patient has significant swelling to lower extremities, 3-4+ pitting with multiple wounds. Currently afib with controlled rate, hr 72. SIGNIFICANT PAST MEDICAL HISTORY: Atrial fibrillation, heart failure, DM 2, end- stage renal disease, GERD, hypertension, RA, diabetic retinopathy and hemodialysis Sunday. PAST SURGICAL HISTORY: See list. EKG = atrial fibrillation, heart rate 72 Troponin = 0.033 SIGNIFICANT LABORATORY VALUES: HGB 10.7, HCT 33.8. K3.7 BUN 33 CR 4.0. ProBNP 48,100. Chest x-ray 05/17/19 = left pleural effusion and left lower lobe pneumonia increased from last exam. Most recent echo = 2015 EF 55-60% REVIEW OF SYSTEMS: CONSTITUTIONAL: Denies fever. Denies chills. EYES: Denies blurred vision. Denies blurred vision or vision changes. Denies eye pain. EARS, NOSE, MOUTH & THROAT: Denies headache. Denies sore throat. Denies ear pain Denies hemoptysis. CARDIOVASCULAR: Denies chest pain. Denies shortness of breath. Denies orthopnea. Denies PND. Denies palpitations. RESPIRATORY: Denies cough. Denies shortness of breath. GASTROINTESTINAL: Denies abdominal pain or distention. Denies diarrhea. Denies constipation. Denies nausea. Denies vomiting. MUSCULOSKELETAL: C/O pain and weak lower extremities. C/O generalized myalgias. INTEGUMENTARY: Denies pruitis. Denies rash. C/O sores/wounds on bilateral lower extremities and bilateral lower feet. ENDOCRINE: C/O fatigue. C/O weight increase. Denies polydipsia. Denies polyurina Denies heat/cold intolerance. GENITOURINARY: Denies burning, hematuria or urgency with micturation. HEMATOLOGIC: Denies history of anemia. Denies bleeding. NEUROLOGIC: Denies numbness. Denies tingling. Denies weakness. PSYCHIATRIC: Denies anxiety. Denies depression. PHYSICAL EXAM: GENERAL: Well developed, in no acute distress. HEENT: Head is atraumatic, normocephalic. Pupils are equal, round. Extra ocular movements intact. Mucous membranes moist. Neck supple. No JVD. No carotid bruit. No thyromegaly. LUNGS: Diminished on LEFT LOWER BASE to auscultation. Otherwise CTA. No wheezes, rales or rhonchi. No chest wall tenderness on palpation or with deep breathing. HEART: Irregular rhythm. No no rubs or gallops. S1 and S2 heard. No murmur. ABDOMEN: Abdominal exam, WNL. Bowel sounds x4 quads. Soft, non-tender, without masses, organomegaly, or abdominal aorta enlargement. EXTREMITIES/VASCULAR: Extremities have diminished dorsalis pedis and posterior tibial pulses. WNL radial pulses. No cyanosis, calf tenderness. SEVERE BLE edema, 4+ pitting with visible sores/wounds/ulcers. NEUROLOGIC: Patient is awake, alert and oriented x3. No focal neurologic abnormalities. FINAL IMPRESSION: 1. Renal failure with dialysis 2. Atrial fibrillation, controlled rate 3. Diabetes mellitus 4. Volume overload 5. Mild troponin elevation secondary to volume overload PLAN: Echocardiogram and EKG ordered. Patient is to continue telemetry. Continue with diuresis and dialysis. Continue all other medical/medication re gime. Will consider anticoagulation. Heart healthy diet/low sodium diet/renal diet. Discontinue IV heparin and start subcutaneous heparin. Nurse Practitioner note has been reviewed by the Physician. Signing provider agrees with the documented findings, assessment a Past Medical History Past Medical History: Atrial Fibrillation, Asthma, Heart Failure, Diabetes Mellitus, Dialysis, Eye Disorder, GERD/Reflux, Hypertension, Osteoarthritis (OA), Pneumonia, Renal Disease, Rheumatoid Arthritis (RA), Seizure Disorder Additional Past Medical History / Comment(s): ESRD with hemodialysis, mineral bone disease, chronic anemia, IDDM type II, diabetic retinopathy-"legally blind", chronic neuropathy occasionally in toes bilateral feet and left leg, bilateral lower leg edema, cellulitis bilateral lower legs, past leg/foot wounds and currently has left medial leg wounds that have scabbed over and no longer goes to [facility], paroxysmal Afib, 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 History of Any Multi-Drug Resistant Organisms: None Reported Past Surgical History: Hernia Repair, Orthopedic Surgery Additional Past Surgical History / Comment(s): Bilateral cataract surgery, insertion dialysis catheter left arm then had a procedure done to dialysis catheter at [facility]-cannot recall exactly what was done, PICC line i nsertion/removed, bilateral inguinal hernina repairs, colonoscopy/polypectomy, R shoulder rotator cuff repair, debridements bilateral feet. Past Anesthesia/Blood Transfusion Reactions: No Reported Reaction Additional Past Anesthesia/Blood Transfusion Reaction / Comment(s): Pt received blood in past without reaction. Past Psychological History: Anxiety, Depression Smoking Status: Former smoker Past Alcohol Use History: None Reported Past Drug Use History: None Reported - Past Family History Mother Family Medical History: Diabetes Mellitus Father Family Medical History: Cancer Additional Family Medical History / Comment(s): Metastatic cancer. Pt cannot recall primary. Medications and Allergies Home Medications Medication Instructions Recorded Confirmed Type Etanercept [Enbrel] 50 mg SQ LUU 06/12/14 05/17/19 History NIFEdipine [NIFEdipine ER] 60 mg PO DAILY 06/12/14 05/17/19 History Aspirin EC [Ecotrin Low Dose] 81 mg PO DAILY 07/31/18 05/17/19 History Gemfibrozil [Lopid] 600 mg PO BID 07/31/18 05/17/19 History Budesonide-Formot 160-4.5 Mcg 2 puff INHALATION RT-BID 02/26/19 05/17/19 History [Symbicort 160-4.5 Mcg Inhaler] Calcium Acetate [PhosLo] 1,334 mg PO TID-W/MEALS 02/26/19 05/17/19 History Magnebind 250/300mg 1 tab PO BID-W/MEALS 02/26/19 05/17/19 History Metoprolol Tartrate [Lopressor] 50 mg PO BID 02/26/19 05/17/19 History Omeprazole 40 mg PO DAILY 02/26/19 05/17/19 History Prorenal + D 1 tab PO DAILY 02/26/19 05/17/19 History Albuterol Nebulized [Ventolin 2.5 mg INHALATION RT-QID 03/17/19 05/17/19 History Nebulized] Famotidine [Pepcid] 20 mg PO BID #30 tablet 03/20/19 05/17/19 Rx Furosemide [Lasix] 80 mg PO BID@0900,1600 tab 03/20/19 05/17/19 Rx Insulin Detemir (Levemir) [Levemir] 35 unit SQ HS syr 03/20/19 05/17/19 Rx ALPRAZolam [Xanax] 0.25 mg PO TID PRN 3 Days #9 tab 05/17/19 Rx Allergies Allergy/AdvReac Type Severity Reaction Status Date / Time sulfamethoxazole AdvReac Unknown Nausea & Verified 05/17/19 08:36 [From Bactrim] Vomiting trimethoprim [From Bactrim] AdvReac Unknown Nausea & Verified 05/17/19 08:36 Vomiting Physical Exam Vitals: Vital Signs Temp Pulse Pulse Resp BP BP Pulse Ox 05/17/19 15:40 68 18 05/17/19 15:38 68 05/17/19 12:00 68 05/17/19 10:40 68 68 18 141/76 98 05/17/19 10:34 97.4 F L 68 20 165/79 96 05/17/19 09:16 97.4 F L 68 20 165/79 96 05/17/19 08:39 98.1 F 69 16 158/79 97 05/17/19 06:48 71 18 158/79 97 05/17/19 05:59 20 05/17/19 05:54 98.0 F 72 23 149/70 97 05/17/19 05:45 98.4 F 75 20 132/48 95 Intake and Output 05/17/19 05/17/19 05/17/19 06:59 14:59 22:59 Other: # Bowel Movements 1 Weight 122.47 kg 122.47 kg Results 05/17/19 06:20 05/17/19 06:20 Cardiac Enzymes 05/17/19 05/17/19 05/17/19 Range/Units 06:20 06:22 14:00 AST 22 (17-59) U/L Troponin I 0.035 H* 0.033 (0.000-0.034) ng/mL Coagulation 05/17/19 Range/Units 06:20 PT 11.0 (9.0-12.0) sec APTT 22.9 (22.0-30.0) sec CBC 05/17/19 Range/Units 06:20 WBC 8.4 (3.8-10.6) k/uL RBC 3.30 L (4.30-5.90) m/uL Hgb 10.7 L (13.0-17.5) gm/dL Hct 33.8 L (39.0-53.0) % Plt Count 163 (150-450) k/uL Comprehensive Metabolic Panel 05/17/19 Range/Units 06:20 Sodium 141 (137-145) mmol/L Potassium 3.7 (3.5-5.1) mmol/L Chloride 95 L (98-107) mmol/L Carbon Dioxide 31 H (22-30) mmol/L BUN 33 H (9-20) mg/dL Creatinine 4.00 H (0.66-1.25) mg/dL Glucose 81 (74-99) mg/dL Calcium 9.5 (8.4-10.2) mg/dL AST 22 (17-59) U/L ALT 13 (4-49) U/L Alkaline Phosphatase 123 (38-126) U/L Total Protein 7.5 (6.3-8.2) g/dL Albumin 3.9 (3.5-5.0) g/dL Current Medications Generic Name Dose Route Start Last Admin Trade Name Freq PRN Reason Stop Dose Admin Acetaminophen 650 mg 05/17/19 07:50 Tylenol Tab PO Q6HR PRN Mild Pain or Fever > 100.5 Albuterol Sulfate 2.5 mg 05/17/19 16:00 05/17/19 15:35 Ventolin Nebulized INHALATION 2.5 mg RT-QID HAYDER Administration Aspirin 81 mg 05/18/19 09:00 Aspirin PO DAILY [facility] Budesonide/Formoterol Fumarate 2 puff 05/17/19 20:00 Symbicort 160-4.5 Mcg Inhaler INHALATION RT-BID [facility] Ca Carbonate/Folic Ac/Mg Carbonate 1 each 05/17/19 17:30 Magnebind 400 PO BID-W/MEALS [facility] Calcium Acetate 1,334 mg 05/17/19 17:30 Phoslo PO TID-W/MEALS [facility] Famotidine 20 mg 05/17/19 21:00 Pepcid PO BID [facility] Fenofibrate 160 mg 05/18/19 09:00 Lofibra PO DAILY [facility] Furosemide 80 mg 05/17/19 16:00 Lasix PO BID@0900,1600 [facility] Heparin Sodium (Porcine) 5,000 unit 05/17/19 16:00 Heparin SQ Q8HR [facility] Vancomycin HCl 2,000 mg/ 500 mls @ 167 mls/hr 05/18/19 06:00 Sodium Chloride IVPB 05/18/19 08:59 ONCE ONE Insulin Detemir 35 unit 05/17/19 21:00 Levemir SQ HS [facility] Lorazepam 0.5 mg 05/17/19 07:50 Ativan IV Q6HR PRN Anxiety Metoprolol Tartrate 50 mg 05/17/19 21:00 Lopressor PO BID [facility] Miscellaneous Information 1 each 05/17/19 07:54 Pharmacy To Dose Iv Vancomycin MISCELLANE DIRECTED PRN Per Protocol Protocol Multivit/Ca Carb/B Cmplx/FA/Prenat 1 each 05/18/19 09:00 Nephrocaps PO DAILY [facility] Nifedipine 60 mg 05/18/19 09:00 Procardia Xl PO DAILY [facility] Ondansetron HCl 4 mg 05/17/19 07:50 Zofran IVP Q8HR PRN Nausea And Vomiting Pantoprazole Sodium 40 mg 05/18/19 07:30 Protonix PO AC-BRKFST [facility] Intake and Output 05/17/19 05/17/19 05/17/19 06:59 14:59 22:59 Other: # Bowel Movements 1 Weight 122.47 kg 122.47 kg Patient Weight 05/18/19 06:59 Weight 122.47 kg 05/17/19 06:20 05/17/19 06:20
[2019-05-17 16:42] LABS: Glucose,Whole Blood 136 mg/dL (75-99)
[2019-05-17] MEDS: HEPARIN SODIUM,PORCINE 5,000 UNIT/ML 1 ML VIAL SQ SCH ×2 (16:57→21:25)
[2019-05-17] MEDS: FUROSEMIDE 80 MG TAB PO SCH (16:57)
[2019-05-17] MEDS: CALCIUM ACETATE 667 MG TAB PO SCH (16:57)
[2019-05-17] MEDS: CALCIUM CARB-MAG CARB-FOLIC 1 EACH TAB PO SCH (16:57)
[2019-05-17 20:29] LABS: Glucose,Whole Blood 229 mg/dL (75-99)
[2019-05-17] MEDS: METOPROLOL TARTRATE 50 MG TAB PO SCH (21:24)
[2019-05-17] MEDS: INSULIN DETEMIR (LEVEMIR) 100 UNIT/ML SYR SQ SCH (21:25)
[2019-05-17] MEDS: FAMOTIDINE 20 MG TAB PO SCH (21:25)
[2019-05-17] MEDS: LORazepam 2 MG/ML INJ IV PRN (21:26)
[2019-05-17] MEDS: SYMBICORT 160-4.5 MCG INHALER INHALATION SCH (21:47)
--- NOTE | 2019-05-17 22:19 | P.HPIM ---
History of Present Illness H&P Date: 05/17/19 Chief Complaint: Shortness of breath Patient is a 68-year-old male with a known history of ESRD on hemodialysis MWF- left upper extremity fistula, atrial fibrillation currently not on anticoagulation, diabetes type 2 is elevated, diabetic retinopathy and chronic lower extremity wounds/venous stasis ulcers came to ER with complaints of low blood sugar, anxiety and shortness of breath. Patient says that he woke up in the morning and felt very anxious and his blood sugar was low between 80 and 90. He felt very anxious and short of breath. Patient does have exertional short of breath. Denied any complaints of chest pain. Patient says that he isn't having worsening leg swelling and bilateral lower extremity wounds. Patient has home healthcare and wound care at home. EKG showed atrial fibrillation with heart rate controlled around 72, troponin 0.035, Hemoglobin 10.7 and creatinine 4 BNP 48 100 Patient was given a dose of IV Lasix 40 mg in the ER and also started on vancomycin and Zosyn. Review of Systems Constitutional: Patient denies any fever or chills . No generalized weakness or weight loss. Abdomen: Patient denied nausea vomiting and diarrhea and abdominal pain. Cardiovascular: Patient denies any chest pain . patient does have short of breath no palpitations. Leg Swelling Respiratory: patient denied any cough is from production. No shortness of breath Neurologic: Patient denied any numbness or tingling headache. Musculoskeletal: Patient denies any complaints of joint swelling or deformity. Skin: Chronic lower extremity wounds Psychiatric: Negative Endocrine: No heat or cold intolerance. No recent weight gain. Genitourinary: No dysuria or hematuria. All other 14 point ROS negative except the above Past Medical History Past Medical History: Atrial Fibrillation, Asthma, Heart Failure, Diabetes Mellitus, Dialysis, Eye Disorder, GERD/Reflux, Hypertension, Osteoarthritis (OA), Pneumonia, Renal Disease, Rheumatoid Arthritis (RA), Seizure Disorder Additional Past Medical History / Comment(s): ESRD with hemodialysis, mineral bone disease, chronic anemia, IDDM type II, diabetic retinopathy-"legally blind", chronic neuropathy occasionally in toes bilateral feet and left leg, bilateral lower leg edema, cellulitis bilateral lower legs, past leg/foot wounds and currently has left medial leg wounds that have scabbed over and no longer goes to [facility], paroxysmal Afib, 2014 history of endocarditis with vegetation on m itral valve, anemia, sepsis, hypo/hyperkalemia, sinus problems, bronchitis, chronic back pain, seizures as a child age [age]yrs. History of Any Multi-Drug Resistant Organisms: None Reported Past Surgical History: Hernia Repair, Orthopedic Surgery Additional Past Surgical History / Comment(s): Bilateral cataract surgery, inser tion dialysis catheter left arm then had a procedure done to dialysis catheter at [facility]-cannot recall exactly what was done, PICC line insertion/removed, bilateral inguinal hernina repairs, colonoscopy/polypectomy, R shoulder rotator cuff repair, debridements bilateral feet. Past Anesthesia/Blood Transfusion Reactions: No Reported Reaction Additional Past Anesthesia/Blood Transfusion Reaction / Comment(s): Pt received blood in past without reaction. Past Psychological History: Anxiety, Depression Smoking Status: Former smoker Past Alcohol Use History: None Reported Past Drug Use History: None Reported - Past Family History Mother Family Medical History: Diabetes Mellitus Father Family Medical History: Cancer Additional Family Medical History / Comment(s): Metastatic cancer. Pt cannot recall primary. Medications and Allergies Home Medications Medication Instructions Recorded Confirmed Type Etanercept [Enbrel] 50 mg SQ LUU 06/12/14 05/17/19 History NIFEdipine [NIFEdipine ER] 60 mg PO DAILY 06/12/14 05/17/19 History Aspirin EC [Ecotrin Low Dose] 81 mg PO DAILY 07/31/18 05/17/19 History Gemfibrozil [Lopid] 600 mg PO BID 07/31/18 05/17/19 History Budesonide-Formot 160-4.5 Mcg 2 puff INHALATION RT-BID 02/26/19 05/17/19 History [Symbicort 160-4.5 Mcg Inhaler] Calcium Acetate [PhosLo] 1,334 mg PO TID-W/MEALS 02/26/19 05/17/19 History Magnebind 250/300mg 1 tab PO BID-W/MEALS 02/26/19 05/17/19 History Metoprolol Tartrate [Lopressor] 50 mg PO BID 02/26/19 05/17/19 History Omeprazole 40 mg PO DAILY 02/26/19 05/17/19 History Prorenal + D 1 tab PO DAILY 02/26/19 05/17/19 History Albuterol Nebulized [Ventolin 2.5 mg INHALATION RT-QID 03/17/19 05/17/19 History Nebulized] Famotidine [Pepcid] 20 mg PO BID #30 tablet 03/20/19 05/17/19 Rx Furosemide [Lasix] 80 mg PO BID@0900,1600 tab 03/20/19 05/17/19 Rx Insulin Detemir (Levemir) [Levemir] 35 unit SQ HS syr 03/20/19 05/17/19 Rx ALPRAZolam [Xanax] 0.25 mg PO TID PRN 3 Days #9 tab 05/17/19 Rx Allergies Allergy/AdvReac Type Severity Reaction Status Date / Time sulfamethoxazole AdvReac Unknown Nausea & Verified 05/17/19 08:36 [From Bactrim] Vomiting trimethoprim [From Bactrim] AdvReac Unknown Nausea & Verified 05/17/19 08:36 Vomiting Physical Exam Vitals: Vital Signs Temp Pulse Pulse Resp BP BP Pulse Ox 05/17/19 10:40 68 18 141/76 98 05/17/19 10:34 97.4 F L 68 20 165/79 96 05/17/19 09:16 97.4 F L 68 20 165/79 96 05/17/19 08:39 98.1 F 69 16 158/79 97 05/17/19 06:48 71 18 158/79 97 05/17/19 05:59 20 05/17/19 05:54 98.0 F 72 23 149/70 97 05/17/19 05:45 98.4 F 75 20 132/48 95 Intake and Output 05/16/19 05/17/19 05/17/19 22:59 06:59 14:59 Other: Weight 122.47 kg 122.47 kg PHYSICAL EXAMINATION: Patient is lying in the bed comfortably, no acute distress, awake alert and oriented.. HEENT: Normocephalic. Neck is supple. Pupils reactive. Nostrils clear. Oral cavity is moist. Ears reveal no drainage. Neck reveals no JVD, carotid bruits, or thyromegaly. CHEST EXAMINATION: Trachea is central. Symmetrical expansion. Bibasilar crackles. Lung albarran clear to auscultation and percussion. CARDIAC: Normal S1, S2 with no gallops. No murmurs ABDOMEN: Soft. Bowel sounds normal. No organomegaly. No abdominal bruits. Extremities: 3+ bilateral pitting edema. No clubbing or cyanosis Neurologically awake, alert, oriented x3 with well-coordinated movements. No focal deficits noted Skin: Bilateral lower extremity multiple skin wounds with no purulent discharge. Venous stasis changes.. Psychiatric: Coperative. Nonsuicidal Musculoskeletal: No joint swelling or deformity. Normal range of motion. Results CBC & Chem 7: 05/17/19 06:20 05/17/19 06:20 Labs: Abnormal Lab Results - Last 24 Hours (Table) 05/17/19 05/17/19 05/17/19 Range/Units 06:20 06:20 06:22 RBC 3.30 L (4.30-5.90) m/uL Hgb 10.7 L (13.0-17.5) gm/dL Hct 33.8 L (39.0-53.0) % MCV 102.2 H D (80.0-100.0) fL RDW 15.9 H (11.5-15.5) % Lymphocytes # 0.7 L (1.0-4.8) k/uL Chloride 95 L (98-107) mmol/L Carbon Dioxide 31 H (22-30) mmol/L BUN 33 H (9-20) mg/dL Creatinine 4.00 H (0.66-1.25) mg/dL Troponin I 0.035 H* (0.000-0.034) ng/mL Thrombosis Risk Factor Assmnt - DVT/VTE Prophylaxis DVT/VTE Prophylaxis: Pharmacologic Prophylaxis ordered - Choose All That Apply Each Factor Represents 1 point: Heart failure (<1month) Each Risk Factor Represents 2 Points: Age 61-74 years Other congenital or acquired thrombophilia - If yes, enter type in comment: No Thrombosis Risk Factor Assessment Total Risk Factor Score: 3 Thrombosis Risk Factor Assessment Level: Moderate Risk Assessment and Plan Assessment: Shortness of breath secondary to fluid overload ESRD on hemodialysis Sunday and Sunday left upper extremity fistula Elevated troponin level likely due to volume overload Uncontrolled hypertension Acute on Chronic CHF with ejection fraction unknown Paroxysmal atrial fibrillation. Not on anticoagulation. 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 Chronic back pain Anxiety/depression Previous history of smoking GERD History of rheumatoid arthritis DVT prophylaxis with heparin subcu. Plan: Patient will be continued on telemetry monitoring. Continue with antibiotics of vancomycin currently. Continue with wound care. Nephrology has seen the patient and is planning for hemodialysis today. Vascular surgery recommends no intervention at this time. outpatient follow-up. 2-D echocardiogram was ordered. Evaluating for starting on long-term anticoagulation. Heparin drip has been discontinued. Further recommendations based on the clinical course. Prognosis guarded with multiple medical problems and comorbid conditions. Time with Patient: Greater than 30
[2019-05-18] MEDS ORDERED: VANCOMYCIN 2,000 MG in SODIUM CHLORIDE 0.9% 500 ML 500 ML IVPB ONE (06:00)
[2019-05-18 06:21] LABS: Glucose,Whole Blood 175 mg/dL (75-99)
--- NOTE | 2019-05-18 06:34 | XR ---
EXAMINATION TYPE: XR chest 1V DATE OF EXAM: 05/18/2019 HISTORY: BRO. REFERENCE: Previous study dated 05/17/2019. FINDINGS: There continues to be left basilar airspace disease as well as a left effusion. Heart size upper limits of normal. There has developed mild interstitial change. IMPRESSION: 1. LEFT LOWER LOBE AIRSPACE DISEASE. 2. LEFT-SIDED EFFUSION. 3. INTERVAL DEVELOPMENT OF INTERSTITIAL CHANGE MAY REFLECT EARLY EDEMA. PLEASE CORRELATE FOR FLUID ST ATUS.
[2019-05-18] MEDS: FOLIC ACID-VIT B COMPLEX-VIT C 1 CAP PO SCH (06:59)
[2019-05-18] MEDS: PANTOPRAZOLE 40 MG TABLET PO SCH (06:59)
[2019-05-18] MEDS: CALCIUM CARB-MAG CARB-FOLIC 1 EACH TAB PO SCH (06:59)
[2019-05-18] MEDS: CALCIUM ACETATE 667 MG TAB PO SCH ×3 (07:05→17:03)
[2019-05-18] MEDS: ALBUTEROL NEBULIZED 2.5 MG/3 ML INHALATION SCH ×4 (07:45→19:34)
[2019-05-18] MEDS: SYMBICORT 160-4.5 MCG INHALER INHALATION SCH ×2 (07:45→19:34)
[2019-05-18] MEDS: METOPROLOL TARTRATE 50 MG TAB PO SCH ×2 (08:20→21:07)
[2019-05-18] MEDS: FAMOTIDINE 20 MG TAB PO SCH ×2 (08:20→21:07)
[2019-05-18] MEDS: FUROSEMIDE 80 MG TAB PO SCH ×2 (08:20→17:03)
[2019-05-18] MEDS: FENOFIBRATE 160 MG TAB PO SCH (08:20)
[2019-05-18] MEDS: ASPIRIN 81 MG PO SCH (08:20)
[2019-05-18] MEDS: HEPARIN SODIUM,PORCINE 5,000 UNIT/ML 1 ML VIAL SQ SCH (08:21)
--- NOTE | 2019-05-18 09:34 | P.PN ---
Subjective Patient is seen in follow-up for end-stage renal disease. He is maintained on hemodialysis on Sunday schedule. Patient had an extra treatment yesterday mostly for ultrafiltration. No active complaints today. Denies chest pain or shortness of breath. Vital signs are stable. General: The patient appeared well nourished and normally developed. HEENT: Head exam is unremarkable. Neck is without jugular venous distension. LUNGS: Lungs are clear to auscultation and percussion. Breath sounds decreased. HEART: Rate and Rhythm are regular. First and second heart sounds normal. No murmurs, rubs or gallops. ABDOMEN: Abdominal exam reveals normal bowel sounds. Non-tender and non- distended. No evidence of peritonitis. EXTREMITITES: 1+ edema. No drainage. Objective - Vital Signs Vital signs: Vital Signs Temp 97.5 F L 05/18/19 08:00 Pulse 68 05/18/19 08:00 Resp 18 05/18/19 08:00 BP 148/67 05/18/19 08:00 Pulse Ox 97 05/18/19 08:00 Intake & Output 05/17/19 05/18/19 05/18/19 18:59 06:59 18:59 Output Total 2000 400 Balance -2000 -400 Weight 122.47 kg 119.2 kg Output: Urine 400 Hemodialysis 2000 Other: # Voids 2 # Bowel Movements 1 1 - Labs CBC & Chem 7: 05/17/19 06:20 05/17/19 06:20 Labs: Abnormal Lab Results - Last 24 Hours (Table) 05/17/19 05/17/19 05/18/19 Range/Units 16:40 20:28 06:19 POC Glucose (mg/dL) 136 H 229 H 175 H (75-99) mg/dL Assessment and Plan Plan: Assessment: 1. End-stage renal disease maintained on hemodialysis on Sunday schedule. 2. Lower extremity wounds. Status post IV vancomycin this admission. 3. Insulin-dependent diabetes mellitus. 4. Volume overload. Better. 5. Chronic kidney disease mineral bone disease Maintained on phosphate binders. Plan: Hemodialysis tomorrow.
--- NOTE | 2019-05-18 11:52 | P.PN ---
Subjective Progress Note Date: 05/18/19 Principal diagnosis: Atrial fibrillation /fluid overload PROGRESS NOTE 05/18/19 This is a 68-year-old male with history of GERD, hypertension, RA, diabetic retinopathy, Atrial fibrillation, heart failure, failure with dialysis Sunday/Sunday/Sunday, diabetes mellitus, chronic lower extremity wounds/stasis ulcers and osteomyelitis history. Patient currently sitting at bedside in no acute distress eating his breakfast. Patient has no current compl aints of chest pain, chest pressure or palpitations. SOB has improved some. Currently afib with controlled rate, hr 72. Patient states he used to be on anticoagulation but he is not sure 1) why he was on the anticoagulation or 2) why they took him off the anticoagulation. Patient is a poor historian. Patient did have dialysis treatment once yesterday, next treatment scheduled for Sunday. Patient to start Eliquis 2.5 mg twice daily. Most recent x-ray on 05/17/19 shows left lower lobe pneumonia. 3-4+ edema on lower extremities continues with known necrosis of the toes/beat and stasis ulcers. LEFT fistula intact. PHYSICAL EXAMINATION: HEENT: Head is atraumatic, normocephalic. Pupils are equal, round. Sclerae anicteric. Conjunctivae are clear. Mucous membranes of the mouth are moist. Neck is supple. There is no jugular venous distention. No carotid bruit is heard. No thyromegaly. LUNGS: Clear to auscultation no wheezes, rales or rhonchi. No chest wall tenderness is noted on palpation or with deep breathing. HEART: Controlled rate and irregular rhythm without murmurs, rubs or gallops. S1 and S2 heard. ABDOMEN: Abdominal exam revealed normal bowel sounds. The abdomen was soft, non- tender, and without masses, organomegaly, or appreciable enlargement of the abdominal aorta. EXTREMITIES: Examination of the extremities revealed easily palpable radial, femoral and pedal pulses. There was no cyanosis, clubbing 3-4+ to bilateral lower extremity edema. No calf tenderness noted. VASCULAR: Radial and dorsalis pedis pulses palpated, no evidence of clubbing. NEUROLOGIC: Patient is awake, alert and oriented x3. There were no obvious focal neurologic abnormalities. LAB DATA: No new labs. Impression: 1. Renal failure with dialysis 2. Atrial fibrillation, controlled rate 3. Diabetes mellitus 4. Volume overload, improving 5. Mild troponin elevation secondary to volume overload PLAN: Echocardiogram and EKG ordered. Patient is to continue telemetry. Continue with diuresis and dialysis. START eliquis 2.5 mg BID. Continue all other medical/medication regime. Heart healthy diet/low sodium diet/renal diet. Consider pulmonary consult for pneumonia. Objective - Vital Signs Vital signs: Vital Signs Temp 97.5 F L 05/18/19 08:00 Pulse 72 05/18/19 11:37 Resp 18 05/18/19 08:00 BP 148/67 05/18/19 08:00 Pulse Ox 97 05/18/19 08:00 Intake & Output 05/17/19 05/18/19 05/18/19 18:59 06:59 18:59 Output Total 1999 400 Balance -1999 -400 Weight 122.47 kg 119.2 kg Output: Urine 400 Hemodialysis 2000 Other: Voiding Method Urinal # Voids 2 1 # Bowel Movements 1 1 - Labs CBC & Chem 7: 05/17/19 06:20 05/17/19 06:20 Labs: Abnormal Lab Results - Last 24 Hours (Table) 05/17/19 05/17/19 05/18/19 Range/Units 16:40 20:28 06:19 POC Glucose (mg/dL) 136 H 229 H 175 H (75-99) mg/dL Microbiology - Last 24 Hours (Table) 05/17/19 08:19 Blood Culture - Preliminary Blood No Growth after 24 hours
[2019-05-18 12:09] LABS: Glucose,Whole Blood 196 mg/dL (75-99)
[2019-05-18] MEDS: LORazepam 2 MG/ML INJ IV PRN (12:23)
--- NOTE | 2019-05-18 14:25 | P.PN ---
Subjective Progress Note Date: 05/18/19 Principal diagnosis: Venous wounds, Edema Patient seen and examined at bedside. Doing well overnight. Swelling slightly improved. No f/c/n/v/cp or sob. Objective - Vital Signs Vital signs: Vital Signs Temp 97.6 F 05/18/19 12:00 Pulse 68 05/18/19 12:00 Resp 16 05/18/19 12:00 BP 170/74 05/18/19 12:00 Pulse Ox 95 05/18/19 12:00 Intake & Output 05/17/19 05/18/19 05/18/19 18:59 06:59 18:59 Intake Total 360 Output Total 2000 400 200 Balance -2000 -400 160 Weight 122.47 kg 119.2 kg Intake: Oral 360 Output: Urine 400 200 Hemodialysis 2000 Other: Voiding Method Urinal # Voids 2 1 # Bowel Movements 1 1 0 - Exam Multiphasic PT signals bilaterally. Palpable femoral pulses bilaterally. D iminished right DP signal which is monophasic. No evidence of DP signal in the left. Multiple lower extremity small wounds noted in the left medial aspect of the calf. Mild erythema throughout with 2+ pitting edema. Multiple distal areas of dry gangrene overlying the toes. No evidence of infection or drainage. - Constitutional General appearance: Present: cooperative - EENT Eyes: Present: EOMI, PERRLA - Respiratory Respiratory: bilateral: CTA - Cardiovascular Rhythm: regular - Neurologic Neurologic: Present: CNII-XII intact. Absent: focal deficits - Psychiatric Psychiatric: Present: A&O x's 3, appropriate affect - Labs CBC & Chem 7: 05/17/19 06:20 05/17/19 06:20 Labs: Abnormal Lab Results - Last 24 Hours (Table) 05/17/19 05/17/19 05/18/19 Range/Units 16:40 20:28 06:19 POC Glucose (mg/dL) 136 H 229 H 175 H (75-99) mg/dL 05/18/19 Range/Units 12:07 POC Glucose (mg/dL) 196 H (75-99) mg/dL Microbiology - Last 24 Hours (Table) 05/17/19 08:19 Blood Culture - Preliminary Blood No Growth after 24 hours Assessment and Plan Assessment: #1 left lower extremity venous ulcer #2 bilateral toe dry gangrene #3 chronic venous insufficiency #4 peripheral arterial disease #5 type 2 diabetes #6 end-stage renal disease on hemodialysis Plan: Okay for discharge from a vascular standpoint. Follow-up in 2-4 weeks in the office. He is to continue his local wound care per his wound care nurse as well as elevation and wrapping of the lower extremities.
[2019-05-18] MEDS ORDERED: ETANERCEPT 50 MG SQ SCH (15:26)
[2019-05-18 16:34] LABS: Glucose,Whole Blood 215 mg/dL (75-99)
[2019-05-18 20:04] LABS: Glucose,Whole Blood 221 mg/dL (75-99)
[2019-05-18] MEDS: INSULIN DETEMIR (LEVEMIR) 100 UNIT/ML SYR SQ SCH (21:07)
[2019-05-18] MEDS: APIXABAN 2.5 MG TABLET PO SCH (21:07)
--- NOTE | 2019-05-19 00:52 | P.PN ---
Subjective Progress Note Date: 05/18/19 Principal diagnosis: Shortness of breath secondary to fluid overload and left-sided pleural effusion Bilateral lower extremity 3+ edema with chronic venostasis and fluid load Acute on chronic CHF Patient is a 68-year-old male with a known history of ESRD on hemodialysis MWF-left upper extremity fistula, atrial fibrillation currently not on anticoagulation, diabetes type 2 is elevated, diabetic retinopathy and chronic lower extremity wounds/venous stasis ulcers came to ER with complaints of low blood sugar, anxiety and shortness of breath. Patient says that he woke up in t he morning and felt very anxious and his blood sugar was low between 80 and 90. He felt very anxious and short of breath. Patient does have exertional short of breath. Denied any complaints of chest pain. Patient says that he isn't having worsening leg swelling and bilateral lower extremity wounds. Patient has home healthcare and wound care at home. EKG showed atrial fibrillation with heart rate controlled around 72, troponin 0.035, Hemoglobin 10.7 and creatinine 4 BNP 48 100 Patient was given a dose of IV Lasix 40 mg in the ER and also started on vancomycin and Zosyn. 05/18/2019 Patient is currently sitting in the chair. Denied any complaints of chest pain or worsening shortness of breath. Patient remained in atrial fibrillation. Started on anticoagulation with Eliquis 2.5 mg twice daily. Continued on Lasix 80 mg twice a day. No fever no chills. No cough or sputum production. No leukocytosis. Chest x- ray showed left lower lobe pneumonia. Patient says that he was treated for pneumonia about a month back and completed antibiotic course. Pro-calcitonin level was ordered. Patient did have hemodialysis yesterday and is regular hemodialysis days are MWF Otherwise patient is still having significant bilateral lower extremity edema. Vascular surgery is not planned for any procedure at this time. Outpatient follow-up recommended. Patient is being followed by nephrology and cardiology. Patient is a poor historian. Patient's is at bedside. Current medications reviewed. Active Medications Acetaminophen (Tylenol Tab) 650 mg PO Q6HR PRN PRN Reason: Mild Pain or Fever > 100.5 Albuterol Sulfate (Ventolin Nebulized) 2.5 mg INHALATION RT-QID [facility] Last Admin: 05/18/19 19:34 Dose: 2.5 mg Documented by: Apixaban (Eliquis) 2.5 mg PO BID [facility] Last Admin: 05/18/19 21:07 Dose: 2.5 mg Documented by: Aspirin (Aspirin) 81 mg PO DAILY [facility] Last Admin: 05/18/19 08:20 Dose: 81 mg Documented by: Budesonide/Formoterol Fumarate (Symbicort 160-4.5 Mcg Inhaler) 2 puff INHALATION RT-BID [facility] Last Admin: 05/18/19 19:34 Dose: 2 puff Documented by: Ca Carbonate/Folic Ac/Mg Carbonate (Magnebind 400) 1 each PO BID-W/MEALS [facility] Last Admin: 05/18/19 06:59 Dose: 1 each Documented by: Calcium Acetate (Phoslo) 1,334 mg PO TID-W/MEALS [facility] Last Admin: 05/18/19 17:03 Dose: 1,334 mg Documented by: Famotidine (Pepcid) 20 mg PO BID [facility] Last Admin: 05/18/19 21:07 Dose: 20 mg Documented by: Fenofibrate (Lofibra) 160 mg PO DAILY [facility] Last Admin: 05/18/19 08:20 Dose: 160 mg Documented by: Furosemide (Lasix) 80 mg PO BID@0900,1600 [facility] Last Admin: 05/18/19 17:03 Dose: 80 mg Documented by: Insulin Detemir (Levemir) 35 unit SQ HS [facility] Last Admin: 05/18/19 21:07 Dose: 35 unit Documented by: Lorazepam (Ativan) 0.5 mg IV Q6HR PRN PRN Reason: Anxiety Last Admin: 05/18/19 12:23 Dose: 0.5 mg Documented by: Metoprolol Tartrate (Lopressor) 50 mg PO BID [facility] Last Admin: 05/18/19 21:07 Dose: 50 mg Documented by: Miscellaneous Information (Pharmacy To Dose Iv Vancomycin) 1 each MISCELLANE DIRECTED PRN; Protocol PRN Reason: Per Protocol Multivit/Ca Carb/B Cmplx/FA/Prenat (Nephrocaps) 1 each PO DAILY [facility] Last Admin: 05/18/19 06:59 Dose: 1 each Documented by: Nifedipine (Procardia Xl) 60 mg PO DAILY [facility] Last Admin: 05/18/19 08:20 Dose: 60 mg Documented by: Ondansetron HCl (Zofran) 4 mg IVP Q8HR PRN PRN Reason: Nausea And Vomiting Pantoprazole Sodium (Protonix) 40 mg PO AC-BRKFST [facility] Last Admin: 05/18/19 06:59 Dose: 40 mg Documented by: Objective - Vital Signs Vital signs: Vital Signs Temp 97.6 F 05/18/19 12:00 Pulse 70 05/18/19 16:30 Resp 16 05/18/19 16:30 BP 170/74 05/18/19 12:00 Pulse Ox 96 05/18/19 16:20 Intake & Output 05/17/19 05/18/19 05/18/19 18:59 06:59 18:59 Intake Total 720 Output Total 2000 400 200 Balance -2000 -400 520 Weight 122.47 kg 119.2 kg Intake: Oral 720 Output: Urine 400 200 Hemodialysis 2000 Other: Voiding Method Urinal # Voids 2 1 # Bowel Movements 1 1 0 - Exam PHYSICAL EXAMINATION: Patient is lying in the bed comfortably, no acute distress, awake alert and oriented.. HEENT: Normocephalic. Neck is supple. Pupils reactive. Nostrils clear. Oral cavity is moist. Ears reveal no drainage. Neck reveals no JVD, carotid bruits, or thyromegaly. CHEST EXAMINATION: Trachea is central. Symmetrical expansion. Bibasilar crackles. Lung albarran clear to auscultation and percussion. CARDIAC: Normal S1, S2 with no gallops. No murmurs ABDOMEN: Soft. Bowel sounds normal. No organomegaly. No abdominal bruits. Extremities: 3+ bilateral pitting edema. No clubbing or cyanosis Neurologically awake, alert, oriented x3 with well-coordinated movements. No fo agustin deficits noted Skin: Bilateral lower extremity multiple skin wounds with no purulent discharge. Venous stasis changes.. Psychiatric: Coperative. Nonsuicidal Musculoskeletal: No joint swelling or deformity. Normal range of motion. - Labs CBC & Chem 7: 05/17/19 06:20 05/17/19 06:20 Labs: Abnormal Lab Results - Last 24 Hours (Table) 05/17/19 05/18/19 05/18/19 Range/Units 20:28 06:19 12:07 POC Glucose (mg/dL) 229 H 175 H 196 H (75-99) mg/dL 05/18/19 Range/Units 16:33 POC Glucose (mg/dL) 215 H (75-99) mg/dL Microbiology - Last 24 Hours (Table) 05/17/19 08:19 Blood Culture - Preliminary Blood No Growth after 24 hours Assessment and Plan Assessment: Shortness of breath secondary to fluid overload and acute CHF ESRD on hemodialysis Sunday and Sunday left upper extremity fistula Elevated troponin level likely due to volume overload Uncontrolled hypertension Acute on Chronic CHF with ejection fraction unknown Chronic bilateral lower extremity swelling due to venous stasis ulcers/ wounds. Peripheral vascular disease with bilateral toe dry gangrene. Vascular surgery recommends outpatient follow-up.. Paroxysmal atrial fibrillation. Not on anticoagulation. 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 Chronic back pain Anxiety/depression Previous history of smoking GERD History of rheumatoid arthritis DVT prophylaxis with heparin subcu. Plan: Patient will be continued on telemetry monitoring. Continue with wound care. Patient was given vancomycin seen in the ER. Chest x-ray still showing left lower lobe pneumonia. Patient was recently treated for pneumonia. Otherwise patient is afebrile no leukocytosis. Pro- calcitonin level will be ordered and pulmonary evaluation. Nephrology has seen the patient and is planning for hemodialysis today. Vascular surgery recommends no intervention at this time. outpatient follow-up. 2-D echocardiogram was ordered. Started on Eliquis for long-term anticoagulation. Heparin drip has been discontinued. cardiology is on board. Further recommendations based on the clinical course. Prognosis guarded with multiple medical problems and comorbid conditions. Time with Patient: Greater than 30
--- NOTE | 2019-05-19 07:04 | P.PN ---
Subjective Patient is a 68-year-old male with a known history of ESRD on hemodialysis MWF- left upper extremity fistula, atrial fibrillation currently not on an ticoagulation, diabetes type 2 is elevated, diabetic retinopathy and chronic lower extremity wounds/venous stasis ulcers came to ER with complaints of low blood sugar, anxiety and shortness of breath. Patient says that he woke up in the morning and felt very anxious and his blood sugar was low between 80 and 90. He felt very anxious and short of breath. Patient does have exertional short of breath. Denied any complaints of chest pain. Patient says that he isn't having worsening leg swelling and bilateral lower extremity wounds. Patient has home healthcare and wound care at home. EKG showed atrial fibrillation with heart rate controlled around 72, troponin 0.035, Hemoglobin 10.7 and creatinine 4 BNP 48 100 Patient was given a dose of IV Lasix 40 mg in the ER and also started on vancom ycin and Zosyn. 05/18/2019 Patient is currently sitting in the chair. Denied any complaints of chest pain or worsening shortness of breath. Patient remained in atrial fibrillation. Started on anticoagulation with Eliquis 2.5 mg twice daily. Continued on Lasix 80 mg twice a day. No fever no chills. No cough or sputum production. No leukocytosis. Chest x- ray showed left lower lobe pneumonia. Patient says that he was treated for pneumonia about a month back and completed antibiotic course. Pro-calcitonin level was ordered. Patient did have hemodialysis yesterday and is regular hemodialysis days are MWF Otherwise patient is still having significant bilateral lower extremity edema. Vascular surgery is not planned for any procedure at this time. Outpatient follow-up recommended. Patient is being followed by nephrology and cardiology. Patient is a poor historian. Patient's is at bedside. 05/19/2019 Patient was admitted for necrotic toes and found to have bilateral dry toe gangrene and his been a evaluated by Dr. Blount once consult. Him for discharge and follow-up as an outpatient in 2-4 weeks, patient prepped and he agrees. Also on admission he has A. fib, his end-stage renal disease on hemodialysis that is due today, he has left lower extremity venous ulcer and low normal- blood sugar on admission.Currently patient is sitting in chair at bedside, he is fully awake and oriented although he is not tachypneic, not dyspneic and saturating 97% on room air. He has mild, with no phlegm, no chest pain, his both legs are wrapped dressing. Cardiology team started the patient on Eliquis, is also currently on aspirin 81 mg. Multiple check with bonding molder team about her recommendation, also will consult dialysis social worker to see coverage for Eliquis. Also consult infectious disease to see him antibiotics on discharge as he is currently on vancomycin pharmacy to dose Objective - Vital Signs Vital signs: Vital Signs Temp 98 F 05/19/19 00:00 Pulse 67 05/19/19 00:00 Resp 20 05/19/19 00:00 BP 127/64 05/19/19 00:00 Pulse Ox 97 05/19/19 00:00 Intake & Output 05/18/19 05/18/19 05/19/19 06:59 18:59 06:59 Intake Total 1080 Output Total 400 300 Balance -400 780 Weight 119.2 kg 121.1 kg Intake: Oral 1080 Output: Urine 400 300 Other: Voiding Method Urinal Urinal # Voids 2 1 # Bowel Movements 1 0 - Exam Patient is lying in the bed comfortably, no acute distress, awake alert and oriented.. HEENT: Normocephalic. Neck is supple. Pupils reactive. Nostrils clear. Oral cavity is moist. Ears reveal no drainage. Neck reveals no JVD, carotid bruits, or thyromegaly. CHEST EXAMINATION: Trachea is central. Symmetrical expansion. Bibasilar crackles. Lung albarran clear to auscultation and percussion. CARDIAC: Normal S1, S2 with no gallops. No murmurs ABDOMEN: Soft. Bowel sounds normal. No organomegaly. No abdominal bruits. -Extremities: 2+ bilateral pitting edema. No clubbing or cyanosis. Bilateral toe gangrene, dressing is in place Neurologically awake, alert, oriented x3 with well-coordinated movements. No focal deficits noted Skin: Bilateral lower extremity multiple skin wounds with no purulent discharge. Venous stasis changes.. Psychiatric: Cooperative. Non-suicidal Musculoskeletal: No joint swelling or deformity. Normal range of motion. - Labs CBC & Chem 7: 05/17/19 06:20 05/17/19 06:20 Labs: Abnormal Lab Results - Last 24 Hours (Table) 02/16/20 02/16/20 02/16/20 Range/Units 12:07 16:33 20:03 POC Glucose (mg/dL) 196 H 215 H 221 H (75-99) mg/dL Microbiology - Last 24 Hours (Table) 05/17/19 08:19 Blood Culture - Preliminary Blood No Growth after 24 hours Assessment and Plan Assessment: Shortness of breath secondary to fluid overload, currently completely resolved Bilateral dry gangrene of the toes and left lower extremity venous ulcer ESRD on hemodialysis Sunday and Sunday left upper extremity fistula Elevated troponin level likely due to volume overload. Patient is evaluated by bonding molder Uncontrolled hypertension, better controlled Acute on Chronic CHF with ejection fraction unknown Chronic bilateral lower extremity swelling due to venous stasis ulcers/ wounds. Peripheral vascular disease with bilateral toe dry gangrene. Vascular surgery recommends outpatient follow-up. Paroxysmal atrial fibrillation. 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 Chronic back pain Anxiety/depression Previous history of smoking GERD History of rheumatoid arthritis Plan: This is a pleasant 68 years old male who presents with bilateral lower extremity toe gangrene with left lower extremity venous ulcer. Patient currently on IV vancomycin, pharmacy to dose. Dr. Olvera from consult through the patient for discharge, we are going to consult infectious disease for antibiotics upon discharge. Also bonding molder we'll start him on Eliquis, consult case making machine operator for Brett., He is also currently with aspirin 81 mg, cardiology team are following the patient closely, sugars controlled. He is getting hemodialysis and nephrology on the case. Follow-up recommendation by consultants. We'll ask for physical therapy evaluation Labs and medication were reviewed.. Continue same treatment. Continue with symptomatic treatment. Resume home medication. Monitor lytes and vitals. DVT and GI prophylaxis. Further recommendations of the clinical course of the patient DVT prophylaxis: Eliquis GI Prophylaxis: Ppi PT/OT: Pending Prognosis is guarded Discussed with staff
[2019-05-19 07:13] LABS: Glucose,Whole Blood 186 mg/dL (75-99)
[2019-05-19] MEDS: SYMBICORT 160-4.5 MCG INHALER INHALATION SCH ×2 (07:20→19:54)
[2019-05-19] MEDS: ALBUTEROL NEBULIZED 2.5 MG/3 ML INHALATION SCH ×4 (07:20→19:54)
[2019-05-19] MEDS: APIXABAN 2.5 MG TABLET PO SCH ×2 (08:14→23:26)
[2019-05-19] MEDS: FOLIC ACID-VIT B COMPLEX-VIT C 1 CAP PO SCH (08:14)
[2019-05-19] MEDS: FENOFIBRATE 160 MG TAB PO SCH (08:14)
[2019-05-19] MEDS: PANTOPRAZOLE 40 MG TABLET PO SCH (08:14)
[2019-05-19] MEDS: FUROSEMIDE 80 MG TAB PO SCH ×2 (08:14→16:41)
[2019-05-19] MEDS: METOPROLOL TARTRATE 50 MG TAB PO SCH ×2 (08:14→23:26)
[2019-05-19] MEDS: CALCIUM ACETATE 667 MG TAB PO SCH ×3 (08:15→16:40)
[2019-05-19] MEDS: FAMOTIDINE 20 MG TAB PO SCH (08:15)
[2019-05-19] MEDS: CALCIUM CARB-MAG CARB-FOLIC 1 EACH TAB PO SCH ×2 (08:15→16:40)
[2019-05-19] MEDS: ASPIRIN 81 MG PO SCH (08:15)
--- NOTE | 2019-05-19 09:24 | P.CONS ---
<Otilia Dinh A - Last Filed: 05/19/19 09:10> History of Present Illness - Reason for Consult Consult date: 05/19/19 Antibiotics on discharge - History of Present Illness This is a 68-year-old male patient presented to the emergency department on May 15 secondary to low blood sugar, anxiety and shortness of breath. He does have a history of end-stage renal disease on dialysis Sunday via left upper extremity fistula. Patient has chronic wounds to the lower extremities with a venous decubitus ulcer on the left lower extremity and bilateral toes dry gangrene. Patient gives history that he has had them at least a month but patient appears to be a poor historian. He states he had home care in place but they weren't getting any better. On presentation he was afebrile, WBC 8.5. Patient has been seen by multiple consultants including [employer] which has cleared the patient for discharge and plan for follow-up in the office. Nephrology is following and he has been continued on hemodialysis scheduled today for treatment. Cardiology is seeing the patient for chronic atrial fibrillation and started eliquis over the weekend. Chest x-ray reveals left lower lobe airspace disease, left effusion. Interval development of interstitial change may reflect early edema. The calcitonin is pending. Blood culture no growth at 24 hours. Patient states that he is planning to return home with homecare. Patient denies having any fever, chills, nausea, vomiting, diarrhea. He states he did have episode of diarrhea when he first presented but none since. No wound culture obtained on this admission. Wound culture from March 2019 is positive for Staphylococcus hemolyticus. Review of Systems Constitutional: Denies chills, Denies fatigue, Denies fever, Denies lethargy, Denies malaise, Denies poor appetite, Denies weakness, Denies weight loss Eyes: denies blurred vision, denies pain Ears, nose, mouth and throat: Denies dysphagia, Denies headache, Denies nasal congestion, Denies nasal discharge, Denies sore throat, Denies vertigo Cardiovascular: Reports leg edema, Denies chest pain, Denies decreased exercise tolerance, Denies dyspnea on exertion, Denies lightheadedness, Denies shortness of breath, Denies syncope Respiratory: Denies cough, Denies cough with sputum, Denies dyspnea, Denies excessive sputum, Denies hemoptysis, Denies home oxygen, Denies respiratory infections, Denies wheezing Gastrointestinal: Denies abdominal pain, Denies diarrhea, Denies loss of appetite, Denies nausea, Denies vomiting Genitourinary: Denies dysuria, Denies urinary retention Musculoskeletal: Denies frequent falls, Denies gait dysfunction, Denies muscle weakness, Denies myalgias Integumentary: Reports color changes, Reports darkening of skin, Reports wounds, Denies pruritus, Denies rash Neurological: Denies change in mentation, Denies change in speech, Denies numbness, Denies seizures, Denies weakness Psychiatric: Denies anxiety, Denies depression Endocrine: Denies fatigue, Denies weight change Past Medical History Past Medical History: Atrial Fibrillation, Asthma, Heart Failure, Diabetes Mellitus, Dialysis, Eye Disorder, GERD/Reflux, Hypertension, Osteoarthritis (OA), Pneumonia, Renal Disease, Rheumatoid Arthritis (RA), Seizure Disorder Additional Past Medical History / Comment(s): ESRD with hemodialysis, mineral bone disease, chronic anemia, IDDM type II, diabetic retinopathy-"legally blind", chronic neuropathy occasionally in toes bilateral feet and left leg, bilateral lower leg edema, cellulitis bilateral lower legs, past leg/foot wounds and currently has left medial leg wounds that have scabbed over and no longer goes to 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 History of Any Multi-Drug Resistant Organisms: None Reported Past Surgical History: Hernia Repair, Orthopedic Surgery Additional Past Surgical History / Comment(s): Bilateral cataract surgery, insertion dialysis catheter left arm then had a procedure done to dialysis catheter at [facility]-cannot recall exactly what was done, PICC line insertion/removed, bilateral inguinal hernina repairs, colonoscopy/polypectomy, R shoulder rotator cuff repair, debridements bilateral feet. Past Anesthesia/Blood Transfusion Reactions: No Reported Reaction Additional Past Anesthesia/Blood Transfusion Reaction / Comm: Pt received blood in past without reaction. Past Psychological History: Anxiety, Depression Smoking Status: Former smoker Past Alcohol Use History: None Reported Past Drug Use History: None Reported - Past Family History Mother Family Medical History: Diabetes Mellitus Father Family Medical History: Cancer Additional Family Medical History / Comment(s): Metastatic cancer. Pt cannot recall primary. Medications and Allergies Home Medications Medication Instructions Recorded Confirmed Type Etanercept [Enbrel] 50 mg SQ LUU 06/12/14 05/17/19 History NIFEdipine [NIFEdipine ER] 60 mg PO DAILY 06/12/14 05/17/19 History Aspirin EC [Ecotrin Low Dose] 81 mg PO DAILY 07/31/18 05/17/19 History Gemfibrozil [Lopid] 600 mg PO BID 07/31/18 05/17/19 History Budesonide-Formot 160-4.5 Mcg 2 puff INHALATION RT-BID 02/26/19 05/17/19 History [Symbicort 160-4.5 Mcg Inhaler] Calcium Acetate [PhosLo] 1,334 mg PO TID-W/MEALS 02/26/19 05/17/19 History Magnebind 250/300mg 1 tab PO BID-W/MEALS 02/26/19 05/17/19 History Metoprolol Tartrate [Lopressor] 50 mg PO BID 02/26/19 05/17/19 History Omeprazole 40 mg PO DAILY 02/26/19 05/17/19 History Prorenal + D 1 tab PO DAILY 02/26/19 05/17/19 History Albuterol Nebulized [Ventolin 2.5 mg INHALATION RT-QID 03/17/19 05/17/19 History Nebulized] Famotidine [Pepcid] 20 mg PO BID #30 tablet 03/20/19 05/17/19 Rx Furosemide [Lasix] 80 mg PO BID@0900,1600 tab 03/20/19 05/17/19 Rx Insulin Detemir (Levemir) [Levemir] 35 unit SQ HS syr 03/20/19 05/17/19 Rx ALPRAZolam [Xanax] 0.25 mg PO TID PRN 3 Days #9 tab 05/17/19 Rx Apixaban [Eliquis] 2.5 mg PO BID #60 tablet 05/19/19 Rx Allergies Allergy/AdvReac Type Severity Reaction Status Date / Time sulfamethoxazole AdvReac Unknown Nausea & Verified 05/17/19 08:36 [From Bactrim] Vomiting trimethoprim [From Bactrim] AdvReac Unknown Nausea & Verified 05/17/19 08:36 Vomiting Physical Exam Vitals: Vital Signs Temp Pulse Pulse Resp BP Pulse Ox 05/19/19 07:34 70 05/19/19 07:20 68 05/19/19 06:51 97.9 F 57 L 18 138/71 99 05/19/19 00:00 98 F 67 20 127/64 97 05/18/19 20:00 97.9 F 67 18 135/64 96 05/18/19 19:45 70 16 05/18/19 19:34 70 16 05/18/19 16:30 70 16 05/18/19 16:20 71 16 96 05/18/19 16:00 97.8 F 62 16 138/59 99 05/18/19 12:00 97.6 F 64 16 170/74 95 05/18/19 11:45 68 05/18/19 11:37 72 Intake and Output 05/18/19 05/19/19 05/19/19 22:59 06:59 14:59 Intake Total 360 Output Total 100 Balance 260 Intake: Oral 360 Output: Urine 100 Other: Voiding Method Urinal Toilet Urinal # Voids 1 # Bowel Movements 0 Weight 121.1 kg Gen: This is a 68-year-old male. Patient is sitting in chair and appears to be in no acute distress. HEENT: Head is atraumatic, normocephalic. Pupils equal, round. Sclerae is anicteric. Oral mucous membranes are moist. NECK: Supple. No JVD. No lymphadenopathy. No thyromegaly. LUNGS: Diminished at bases but otherwise clear to auscultation. No wheezes or rhonchi. No intercostal retractions. HEART: Irregular rate and rhythm. No murmur. Rate is controlled. ABDOMEN: Soft. Bowel sounds are present. No masses. No tenderness. EXTREMITIES: 2+ edema bilateral. Diminished pulses bilaterally. Patient has a black skin changes to multiple distal toes,bilateral feet. NEUROLOGICAL: Patient is awake, alert and oriented x3. Cranial nerves 2 through 12 are grossly intact. Results CBC & Chem 7: 05/17/19 06:20 05/17/19 06:20 Labs: Abnormal Lab Results - Last 24 Hours (Table) 05/18/19 05/18/19 05/18/19 Range/Units 12:07 16:33 20:03 POC Glucose (mg/dL) 196 H 215 H 221 H (75-99) mg/dL 05/19/19 Range/Units 06:54 POC Glucose (mg/dL) 186 H (75-99) mg/dL Microbiology - Last 24 Hours (Table) 05/17/19 08:19 Blood Culture - Preliminary Blood No Growth after 24 hours Assessment and Plan Plan: This is a 68-year-old man with chronic left lower extremity venous ulcer and bilateral toe dry gangrene secondary to chronic venous insufficiency and peripheral artery disease. Patient also has past medical history of type 2 diabetes and end-stage renal disease on hemodialysis. The patient has been on vancomycin. No wound cultures have been obtained on this admission. Blood culture showing no growth at 24 hours. Antibiotics at time of discharge will be addressed. Continue local wound care. Further recommendations as patient progresses. The above dictated assessment and findings were discussed with Dr. Hodges. The impression and plan of care have been directed as dictated. Otilia Dinh nurse practitioner acting as scribe for Dr. Hodges. <Whitney Hodges - Last Filed: 05/19/19 23:56> Physical Exam Vitals: Vital Signs Temp Pulse Pulse Resp BP Pulse Ox 05/19/19 20:02 66 16 05/19/19 19:55 65 16 05/19/19 12:27 96.9 F L 61 18 162/77 98 05/19/19 11:07 68 05/19/19 10:57 66 05/19/19 07:34 70 05/19/19 07:20 68 05/19/19 06:51 97.9 F 57 L 18 138/71 99 05/19/19 00:00 98 F 67 20 127/64 97 Intake and Output 05/19/19 05/19/19 05/20/19 14:59 22:59 06:59 Intake Total 500 Balance 500 Intake: IV 500 Vancomycin 2,000 mg In 500 Sodium Chloride 0.9% 500 ml 500 ml @ 167 mls/hr IVPB ONCE ONE Rx#: [id number] Other: Voiding Method Toilet Urinal # Voids 2 1 Weight 121.1 kg Results CBC & Chem 7: 05/19/19 07:54 05/19/19 07:54 Labs: Abnormal Lab Results - Last 24 Hours (Table) 05/18/19 05/19/19 05/19/19 Range/Units 14:47 06:54 07:54 RBC (4.30-5.90) m/uL Hgb (13.0-17.5) gm/dL Hct (39.0-53.0) % MCV (80.0-100.0) fL RDW (11.5-15.5) % Plt Count (150-450) k/uL Lymphocytes # (1.0-4.8) k/uL Potassium 5.3 H (3.5-5.1) mmol/L Chloride 96 L (98-107) mmol/L BUN 66 H (9-20) mg/dL Creatinine 6.06 H (0.66-1.25) mg/dL Glucose 191 H (74-99) mg/dL POC Glucose (mg/dL) 186 H (75-99) mg/dL Procalcitonin 0.36 H (0.02-0.09) ng/mL 05/19/19 05/19/19 05/19/19 Range/Units 07:54 17:06 20:53 RBC 3.67 L (4.30-5.90) m/uL Hgb 12.0 L (13.0-17.5) gm/dL Hct 38.6 L (39.0-53.0) % MCV 105.0 H (80.0-100.0) fL RDW 15.7 H (11.5-15.5) % Plt Count 129 L (150-450) k/uL Lymphocytes # 0.9 L (1.0-4.8) k/uL Potassium (3.5-5.1) mmol/L Chloride (98-107) mmol/L BUN (9-20) mg/dL Creatinine (0.66-1.25) mg/dL Glucose (74-99) mg/dL POC Glucose (mg/dL) 298 H 245 H (75-99) mg/dL Procalcitonin (0.02-0.09) ng/mL Microbiology - Last 24 Hours (Table) 05/17/19 08:19 Blood Culture - Preliminary Blood No Growth after 48 hours Assessment and Plan Plan: Patient was seen and examined, nurse practitioner note was reviewed and agreed 1- patient is a 68-year-old male with a past medical history. For end-stage renal disease on hemodialysis presented to hospital with increasing shortness of breath in this patient did have evidence of left sided pleural effusion clinically not behaving as the morning this patient with no cough fever or elevated white count 2-patient who to have some necrotic changes to left fifth toe and right big toe but no evidence of secondary cellulitis Recommend discontinue the vancomycin as no evidence of any bacterial infection And no need for any antibiotic on discharge Time with Patient: Greater than 30
[2019-05-19 09:26] LABS: Calcium 9.7 mg/dL (8.4-10.2)
[2019-05-19 09:28] LABS: Basophils # (A) 0.1 k/uL (0-0.2); Basophils % (A) 1 %; Eosinophils # (A) 0.3 k/uL (0-0.7); Eosinophils % (A) 5 %; HCT 38.6 % (39.0-53.0); Hypochromasia Slight; Lymphocytes # (A) 0.9 k/uL (1.0-4.8); Lymphocytes % (A) 15 %; MCH 32.6 pg (25.0-35.0); Macrocytosis Moderate; Mean Platelet Volume 8.8; Monocytes # (A) 0.4 k/uL (0-1.0); Monocytes % (A) 6 %; Neutrophils # (A) 4.3 k/uL (1.3-7.7); Neutrophils % (A) 71 %; Platelet Count 129 k/uL (150-450); Potassium 5.3 mmol/L (3.5-5.1); RBC 3.67 m/uL (4.30-5.90); RDW 15.7 % (11.5-15.5); WBC 6.1 k/uL (3.8-10.6)
[2019-05-19 09:32] LABS: Vancomycin,Random 5.8 ug/mL
--- NOTE | 2019-05-19 11:31 | ECHOF ---
Referral Reason:Assess LV function / Atrial Fibrillation on EKG MEASUREMENTS -------- HEIGHT: 185.4 cm WEIGHT: 120.7 kg BP: 127/64 RVIDd: 3.4 cm (< 3.3) IVSd: 1.3 cm (0.6 - 1.1) LVIDd: 5.0 cm (3.9 - 5.3) LVPWd: 1.4 cm (0.6 - 1.1) IVSs: 1.7 cm LVIDs: 3.5 cm LVPWs: 1.6 cm LAESV Index (A-L): 26.89 ml/m Ao Diam: 3.0 cm (2.0 - 3.7) AV Cusp: 1.4 cm (1.5 - 2.6) LA Diam: 4.1 cm (2.7 - 3.8) MV EXCURSION: 13.666 mm (> 18.000) MV EF SLOPE: 50 mm/s (70 - 150) EPSS: 1.4 cm MV E Malvin: 1.31 m/s MV DecT: 302 ms MV A Malvin: 0.33 m/s MV E/A Ratio: 3.98 RAP: 5.00 mmHg RVSP: 39.03 mmHg FINDINGS -------- Atrial fibrillation. This was a technically difficult study with suboptimal views. The left ventricular size is normal. There is mild concentric left ventricular hypertrophy. Overa ll left ventricular systolic function is mild-moderately impaired with, an EF between 40 - 45 %. Le ft ventricular fillimg pressure cannot be estimated due to Atrial fibrillation. The right ventricle is mildly enlarged. The left atrial size is normal. Normal LA size by volume 22+/-6 ml/m2. The right atrial size is normal. Lumason used Aortic valve is trileaflet and is mildly thickened. The mitral valve is normal. The mitral valve leaflets are mildly thickened. Mild mitral annular c alcification present. Mild mitral regurgitation is present. The tricuspid valve appears structurally normal. Mild tricuspid regurgitation present. There is m ild pulmonary hypertension. The right ventricular systolic pressure, as measured by Doppler, is 39. 03mmHg. There is no pulmonic regurgitation present. The aortic root size is normal. IVC Not well visulized. There is no pericardial effusion. CONCLUSIONS -------- 1. Atrial fibrillation. 2. This was a technically difficult study with suboptimal views. 3. The left ventricular size is normal. 4. There is mild concentric left ventricular hypertrophy. 5. Overall left ventricular systolic function is mild-moderately impaired with, an EF between 40 - 45 %. 6. Left ventricular fillimg pressure cannot be estimated due to Atrial fibrillation. 7. The right ventricle is mildly enlarged. 8. The left atrial size is normal. 9. Normal LA size by volume 22+/-6 ml/m2. 10. The right atrial size is normal. 11. Lumason used 12. Aortic valve is trileaflet and is mildly thickened. 13. The mitral valve is normal. 14. The mitral valve leaflets are mildly thickened. 15. Mild mitral annular calcification present. 16. Mild mitral regurgitation is present. 17. The tricuspid valve appears structurally normal. 18. Mild tricuspid regurgitation present. 19. There is mild pulmonary hypertension. 20. The right ventricular systolic pressure, as measured by Doppler, is 39.03mmHg. 21. There is no pulmonic regurgitation present. 22. The aortic root size is normal. 23. IVC Not well visulized. 24. There is no pericardial effusion. YARN WORKER: Allyson Long RDCS
[2019-05-19] MEDS ORDERED: VANCOMYCIN 2,000 MG in SODIUM CHLORIDE 0.9% 500 ML 500 ML IVPB ONE (12:00)
--- NOTE | 2019-05-19 12:58 | P.PN ---
Subjective Patient is seen in follow-up for end-stage renal disease. He is maintained on hemodialysis on Sunday schedule. No active complaints today. Denies chest pain or shortness of breath. Blood sugars stable. Vital signs are stable. General: The patient appeared well nourished and normally developed. HEENT: Head exam is unremarkable. Neck is without jugular venous distension. LUNGS: Lungs are clear to auscultation and percussion. Breath sounds decreased. HEART: Rate and Rhythm are regular. First and second heart sounds normal. No murmurs, rubs or gallops. ABDOMEN: Abdominal exam reveals normal bowel sounds. Non-tender and non- distended. No evidence of peritonitis. EXTREMITITES: 1+ edema. No drainage. Objective - Vital Signs Vital signs: Vital Signs Temp 96.9 F L 05/19/19 12:27 Pulse 61 05/19/19 12:27 Resp 18 05/19/19 12:27 BP 162/77 05/19/19 12:27 Pulse Ox 98 05/19/19 12:27 Intake & Output 05/18/19 05/19/19 05/19/19 18:59 06:59 18:59 Intake Total 1080 Output Total 300 Balance 780 Weight 121.1 kg Intake: Oral 1080 Output: Urine 300 Other: Voiding Method Urinal Toilet Urinal # Voids 1 2 # Bowel Movements 0 - Labs CBC & Chem 7: 05/19/19 07:54 05/19/19 07:54 Labs: Abnormal Lab Results - Last 24 Hours (Table) 05/18/19 05/18/19 05/18/19 Range/Units 14:47 16:33 20:03 RBC (4.30-5.90) m/uL Hgb (13.0-17.5) gm/dL Hct (39.0-53.0) % MCV (80.0-100.0) fL RDW (11.5-15.5) % Plt Count (150-450) k/uL Lymphocytes # (1.0-4.8) k/uL Potassium (3.5-5.1) mmol/L Chloride (98-107) mmol/L BUN (9-20) mg/dL Creatinine (0.66-1.25) mg/dL Glucose (74-99) mg/dL POC Glucose (mg/dL) 215 H 221 H (75-99) mg/dL Procalcitonin 0.36 H (0.02-0.09) ng/mL 05/19/19 05/19/19 05/19/19 Range/Units 06:54 07:54 07:54 RBC 3.67 L (4.30-5.90) m/uL Hgb 12.0 L (13.0-17.5) gm/dL Hct 38.6 L (39.0-53.0) % MCV 105.0 H (80.0-100.0) fL RDW 15.7 H (11.5-15.5) % Plt Count 129 L (150-450) k/uL Lymphocytes # 0.9 L (1.0-4.8) k/uL Potassium 5.3 H (3.5-5.1) mmol/L Chloride 96 L (98-107) mmol/L BUN 66 H (9-20) mg/dL Creatinine 6.06 H (0.66-1.25) mg/dL Glucose 191 H (74-99) mg/dL POC Glucose (mg/dL) 186 H (75-99) mg/dL Procalcitonin (0.02-0.09) ng/mL Microbiology - Last 24 Hours (Table) 05/17/19 08:19 Blood Culture - Preliminary Blood No Growth after 48 hours Assessment and Plan Plan: Assessment: 1. End-stage renal disease maintained on hemodialysis on Sunday schedule. 2. Lower extremity wounds. Maintained on IV vancomycin. 3. Insulin-dependent diabetes mellitus. 4. Volume overload. Better. 5. Chronic kidney disease mineral bone disease Maintained on phosphate binders. Plan: Hemodialysis today. Monitor vancomycin levels. Target level less than 20.
--- NOTE | 2019-05-19 13:37 | P.CNPUL ---
History of Present Illness Consult date: 05/19/19 Requesting physician: Germain Dowd Reason for consult: abnormal CXR/CT (Chronic left lower lobe pleural effusion) Chief complaint: Low blood sugar, anxiety, shortness of breath History of present illness: This a very pleasant 68-year-old gentleman who has a history of end-stage renal disease on hemodialysis Sunday, chronic anemia, diabetes mellitus type 2, hypertension, secondary pulmonary hypertension, rheumatoid arthritis on Enbrel, hypertension, hyperlipidemia, chronic venous stasis ulcers of the bilateral lower extremity with bilateral toes with dry gangrene and venous decubitus ulcer the left lower extremity with diabetic neuropathy. He also has chronic hypoxemic respiratory failure and follows with Dr. Bustos in our office for the same. He was last seen in October 2018. He presents to the emergency room on 05/17/2019 with complaints of low blood sugar, anxiety and shortness of breath. We're consulted for left lower lobe airspace disease with a left effusion and interval development of interstitial change considering early edema. Echocardiogram reveals mild to moderately impaired left ventricular systolic function with ejection fraction 40-45%. Mild pulmonary hypertension with an RVSP of 39 mmHg. No significant valvular disease. He is seen today in consultation. He is currently sitting up in a chair at the bedside. Awake and alert in no acute distress. He denies any shortness of breath, cough or congestion. No fever or chills. Maintaining O2 saturations in the 90s currently on room air. White count 6.1. Hemoglobin 12.0. Platelet co unt 129,000. Sodium 138. Potassium 5.3. Creatinine 6.06. Blood culture reveals no growth to date. He is due for hemodialysis today. He is continued on albuterol and Symbicort. He has been initiated on vancomycin. Lg wraps the bilateral lower extremities. Review of Systems Patient reports shortness of breath but reports no cough, no wheezing, no coughing up blood, and no sleep apnea. He reports swelling in the extremities but reports no muscle aches, no muscle weakness, no arthralgias/joint pain, and no back pain. He reports fatigue. He reports no fever, no night sweats, no significant weight gain, no significant weight loss, and no exercise intolerance. He reports no dry eyes, no vision change, and no irritation. He reports no difficulty hearing and no ear pain. He reports no frequent nosebleeds, no nose problems, and no sinus problems. He reports no sore throat, no bleeding gums, no snoring, no dry mouth, no mouth ulcers, no oral abnormalities, and no teeth problems. He reports no chest pain, no arm pain on exertion, no shortness of breath when walking, no shortness of breath when lying down, no palpitations, and no known heart murmur. He reports no abdominal pain, no nausea, no vomiting, no constipation, normal appetite, no diarrhea, not vomi ting blood, no dyspepsia, and no GERD. He reports no incontinence, no difficulty urinating, no hematuria, and no increased frequency. He reports no abnormal mole, no jaundice, no rashes, and no laceration. He reports no loss of consciousness, no weakness, no numbness, no seizures, no dizziness, no m igraines, no headaches, and no tremor. He reports no depression, no sleep disturbances, feeling safe in a relationship, no alcohol abuse, no anxiety, no hallucinations, and no suicidal thoughts. He reports no swollen glands, no bruising, and no excessive bleeding. He reports no runny nose, no sinus pressure, no itching, no hives, and no frequent sneezing. Past Medical History Past Medical History: Atrial Fibrillation, Asthma, Heart Failure, Diabetes Mellitus, Dialysis, Eye Disorder, GERD/Reflux, Hypertension, Osteoarthritis (OA), Pneumonia, Renal Disease, Rheumatoid Arthritis (RA), Seizure Disorder Additional Past Medical History / Comment(s): ESRD with hemodialysis, mineral bone disease, chronic anemia, IDDM type II, diabetic retinopathy-"legally blind", chronic neuropathy occasionally in toes bilateral feet and left leg, bilateral lower leg edema, cellulitis bilateral lower legs, past leg/foot wounds and currently has left medial leg wounds that have scabbed over and no longer goes to [facility], paroxysmal Afib, 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 History of Any Multi-Drug Resistant Organisms: None Reported Past Surgical History: Hernia Repair, Orthopedic Surgery Additional Past Surgical History / Comment(s): Bilateral cataract surgery, insertion dialysis catheter left arm then had a procedure done to dialysis catheter at [facility]-cannot recall exactly what was done, PICC line insertion/removed, bilateral inguinal hernina repairs, colonoscopy/polypectomy, R shoulder rotator cuff repair, debridements bilateral feet. Past Anesthesia/Blood Transfusion Reactions: No Reported Reaction Additional Past Anesthesia/Blood Transfusion Reaction / Comment(s): Pt received blood in past without reaction. Past Psychological History: Anxiety, Depression Smoking Status: Former smoker Past Alcohol Use History: None Reported Past Drug Use History: None Reported - Past Family History Mother Family Medical History: Diabetes Mellitus Father Family Medical History: Cancer Additional Family Medical History / Comment(s): Metastatic cancer. Pt cannot recall primary. Medications and Allergies Home Medications Medication Instructions Recorded Confirmed Type Etanercept [Enbrel] 50 mg SQ LUU 06/12/14 05/17/19 History NIFEdipine [NIFEdipine ER] 60 mg PO DAILY 06/12/14 05/17/19 History Aspirin EC [Ecotrin Low Dose] 81 mg PO DAILY 07/31/18 05/17/19 History Gemfibrozil [Lopid] 600 mg PO BID 07/31/18 05/17/19 History Budesonide-Formot 160-4.5 Mcg 2 puff INHALATION RT-BID 02/26/19 05/17/19 History [Symbicort 160-4.5 Mcg Inhaler] Calcium Acetate [PhosLo] 1,334 mg PO TID-W/MEALS 02/26/19 05/17/19 History Magnebind 250/300mg 1 tab PO BID-W/MEALS 02/26/19 05/17/19 History Metoprolol Tartrate [Lopressor] 50 mg PO BID 02/26/19 05/17/19 History Omeprazole 40 mg PO DAILY 02/26/19 05/17/19 History Prorenal + D 1 tab PO DAILY 02/26/19 05/17/19 History Albuterol Nebulized [Ventolin 2.5 mg INHALATION RT-QID 03/17/19 05/17/19 History Nebulized] Famotidine [Pepcid] 20 mg PO BID #30 tablet 03/20/19 05/17/19 Rx Furosemide [Lasix] 80 mg PO BID@0900,1600 tab 03/20/19 05/17/19 Rx Insulin Detemir (Levemir) [Levemir] 35 unit SQ HS syr 03/20/19 05/17/19 Rx ALPRAZolam [Xanax] 0.25 mg PO TID PRN 3 Days #9 tab 05/17/19 Rx Apixaban [Eliquis] 2.5 mg PO BID #60 tablet 05/19/19 Rx Allergies Allergy/AdvReac Type Severity Reaction Status Date / Time sulfamethoxazole AdvReac Unknown Nausea & Verified 05/17/19 08:36 [From Bactrim] Vomiting trimethoprim [From Bactrim] AdvReac Unknown Nausea & Verified 05/17/19 08:36 Vomiting Physical Exam Vitals: Vital Signs Temp Pulse Pulse Resp BP Pulse Ox 05/19/19 12:27 96.9 F L 61 18 162/77 98 05/19/19 11:07 68 05/19/19 10:57 66 05/19/19 07:34 70 05/19/19 07:20 68 05/19/19 06:51 97.9 F 57 L 18 138/71 99 05/19/19 00:00 98 F 67 20 127/64 97 05/18/19 20:00 97.9 F 67 18 135/64 96 05/18/19 19:45 70 16 05/18/19 19:34 70 16 05/18/19 16:30 70 16 05/18/19 16:20 71 16 96 05/18/19 16:00 97.8 F 62 16 138/59 99 Intake and Output 05/18/19 05/19/19 05/19/19 22:59 06:59 14:59 Intake Total 360 Output Total 100 Balance 260 Intake: Oral 360 Output: Urine 100 Other: Voiding Method Urinal Toilet Urinal # Voids 1 2 # Bowel Movements 0 Weight 121.1 kg GENERAL EXAM: Alert, active, pleasant 68-year-old gentleman, on room air, comfortable in no apparent distress. HEAD: Normocephalic. EYES: Normal reaction of pupils, equal size. NOSE: Clear with pink turbinates. THROAT: No erythema or exudates. NECK: No masses, no JVD. CHEST: No chest wall deformity. LUNGS: Equal air entry with dullness in the left lung base CVS: S1 and S2 normal with no audible murmur, regular rhythm. ABDOMEN: No hepatosplenomegaly, normal bowel sounds, no guarding or rigidity. SPINE: No scoliosis or deformity SKIN: No rashes CENTRAL NERVOUS SYSTEM: No focal deficits, tone is normal in all 4 extremities. EXTREMITIES: AV fistula left upper extremity, bilateral lower extremity edema, Lg wraps in place. No clubbing, no cyanosis. Peripheral pulses are intact. Results - Laboratory Findings CBC and BMP: 05/19/19 07:54 05/19/19 07:54 PT/INR, D-dimer PT 11.0 sec (9.0-12.0) 05/17/19 06:20 INR 1.1 (<1.2) 05/17/19 06:20 Abnormal lab findings: Abnormal Labs 05/17/19 05/17/19 05/17/19 06:20 06:20 06:22 RBC 3.30 L Hgb 10.7 L Hct 33.8 L MCV 102.2 H D RDW 15.9 H Plt Count Lymphocytes # 0.7 L Potassium Chloride 95 L Carbon Dioxide 31 H BUN 33 H Creatinine 4.00 H Glucose POC Glucose (mg/dL) Troponin I 0.035 H* Procalcitonin 05/17/19 05/17/19 05/18/19 16:40 20:28 06:19 RBC Hgb Hct MCV RDW Plt Count Lymphocytes # Potassium Chloride Carbon Dioxide BUN Creatinine Glucose POC Glucose (mg/dL) 136 H 229 H 175 H Troponin I Procalcitonin 05/18/19 05/18/19 05/18/19 12:07 14:47 16:33 RBC Hgb Hct MCV RDW Plt Count Lymphocytes # Potassium Chloride Carbon Dioxide BUN Creatinine Glucose POC Glucose (mg/dL) 196 H 215 H Troponin I Procalcitonin 0.36 H 05/18/19 05/19/19 05/19/19 20:03 06:54 07:54 RBC Hgb Hct MCV RDW Plt Count Lymphocytes # Potassium 5.3 H Chloride 96 L Carbon Dioxide BUN 66 H Creatinine 6.06 H Glucose 191 H POC Glucose (mg/dL) 221 H 186 H Troponin I Procalcitonin 05/19/19 07:54 RBC 3.67 L Hgb 12.0 L Hct 38.6 L MCV 105.0 H RDW 15.7 H Plt Count 129 L Lymphocytes # 0.9 L Potassium Chloride Carbon Dioxide BUN Creatinine Glucose POC Glucose (mg/dL) Troponin I Procalcitonin - Diagnostic Findings Chest x-ray: image reviewed Assessment and Plan Assessment: 1 Chronic left lower extremity venous ulcer and bilateral toe dry gangrene secondary to chronic venous insufficiency and peripheral arterial disease. Following by infectious disease. Initiated on vancomycin. 2 Chronic left lower lung opacitiy/effusion without significant change compared to previous. The patient is currently on room air. 3 End stage renal disease receiving hemodialysis Sunday 4 Diabetes mellitus, type II 5 Diabetic neuropathy 6 Atrial fibrillation anticoagulated with Eliquis 7 Diabetic retinopathy/legally blind 8 History of endocarditis with vegetation the mitral valve 9 Chronic obstructive pulmonary disease maintained on Symbicort and albuterol in the outpatient setting 10 History of chronic tobacco dependence 11 Rheumatoid arthritis 12 History of seizure disorder Plan: The patient was seen and evaluated by Dr. Bustos. Chest x-ray and labs reviewed. There is some chronicity in the left lower lobe. Possibly increased effusion however the patient remains on room air and in no acute pulmonary distress. He is due for hemodialysis today. Remains on diuretics. No plans fo r thoracentesis at this time. If the patient develops pulmonary symptoms we would obtain ultrasound of the left chest and perform a thoracentesis. If not, will continue to follow and make further recommendations based on his clinical status. I, the cosigning physician, performed a history & physical examination of the patient. Lungs sounds diminished in the left lung base. Maintaining good O2 saturations in the 90s on room air. I discussed the assessment and plan of care with my nurse practitioner, Steffany Steele. I attest to the above consultation as dictated by her.
--- NOTE | 2019-05-19 15:11 | P.CONS ---
History of Present Illness - Reason for Consult Consult date: 05/19/19 wound care - History of Present Illness This is a 68-year-old pleasant gentleman who is known to the wound care center with nonhealing ulcerations to left lower extremity and right dorsal foot. Patient also has a scar to the right great toe. Patient states that these ulcerations started approximately a month ago. He was utilizing Silvadene from home care for treatment. Britt that they were getting better. Patient is complaining of burning and discomfort to the left lateral ulceration. Left lateral ulceration measures approximately 4 x 3 x 0.1 cm with fatty layer exposed, granulation seen within the wound bed. left medial ulceration measures approximately 2 x 3 x 0.1 cm, fatty layer exposed, eschar and slough noted to the wound bed. dorsal foot ulceration measures approximately 0.2 x 0.3 x 0.1 cm fatty layer exposed. Right great toe distal portion eschar In place. Area is firm. Review of Systems Review Of Systems: Constitutional: No fever, no chills, no night sweats. No weight change. No weakness, fatigue or lethargy. No daytime sleepiness. Integumentary:reports wounds, no lesions. No rash or pruritus. No unusual bruising. No change in hair or nails. Past Medical History Past Medical History: Atrial Fibrillation, Asthma, Heart Failure, Diabetes Mellitus, Dialysis, Eye Disorder, GERD/Reflux, Hypertension, Osteoarthritis (OA), Pneumonia, Renal Disease, Rheumatoid Arthritis (RA), Seizure Disorder Additional Past Medical History / Comment(s): ESRD with hemodialysis, mineral bone disease, chronic anemia, IDDM type II, diabetic retinopathy-"legally blind", chronic neuropathy occasionally in toes bilateral feet and left leg, bilateral lower leg edema, cellulitis bilateral lower legs, past leg/foot wounds and currently has left medial leg wounds that have scabbed over and no longer goes to [facility], paroxysmal Afib, 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 History of Any Multi-Drug Resistant Organisms: None Reported Past Surgical History: Hernia Repair, Orthopedic Surgery Additional Past Surgical History / Comment(s): Bilateral cataract surgery, insertion dialysis catheter left arm then had a procedure done to dialysis catheter at [facility]-cannot recall exactly what was done, PICC line insertion/removed, bilateral inguinal hernina repairs, colonoscopy/polypectomy, R shoulder rotator cuff repair, debridements bilateral feet. Past Anesthesia/Blood Transfusion Reactions: No Reported Reaction Additional Past Anesthesia/Blood Transfusion Reaction / Comm: Pt received blood in past without reaction. Past Psychological History: Anxiety, Depression Smoking Status: Former smoker Past Alcohol Use History: None Reported Past Drug Use History: None Reported - Past Family History Mother Family Medical History: Diabetes Mellitus Father Family Medical History: Cancer Additional Family Medical History / Comment(s): Metastatic cancer. Pt cannot recall primary. Medications and Allergies Home Medications Medication Instructions Recorded Confirmed Type Etanercept [Enbrel] 50 mg SQ LUU 06/12/14 05/17/19 History NIFEdipine [NIFEdipine ER] 60 mg PO DAILY 06/12/14 05/17/19 History Aspirin EC [Ecotrin Low Dose] 81 mg PO DAILY 07/31/18 05/17/19 History Gemfibrozil [Lopid] 600 mg PO BID 07/31/18 05/17/19 History Budesonide-Formot 160-4.5 Mcg 2 puff INHALATION RT-BID 02/26/19 05/17/19 History [Symbicort 160-4.5 Mcg Inhaler] Calcium Acetate [PhosLo] 1,334 mg PO TID-W/MEALS 02/26/19 05/17/19 History Magnebind 250/300mg 1 tab PO BID-W/MEALS 02/26/19 05/17/19 History Metoprolol Tartrate [Lopressor] 50 mg PO BID 02/26/19 05/17/19 History Omeprazole 40 mg PO DAILY 02/26/19 05/17/19 History Prorenal + D 1 tab PO DAILY 02/26/19 05/17/19 History Albuterol Nebulized [Ventolin 2.5 mg INHALATION RT-QID 03/17/19 05/17/19 History Nebulized] Famotidine [Pepcid] 20 mg PO BID #30 tablet 03/20/19 05/17/19 Rx Furosemide [Lasix] 80 mg PO BID@0900,1600 tab 03/20/19 05/17/19 Rx Insulin Detemir (Levemir) [Levemir] 35 unit SQ HS syr 03/20/19 05/17/19 Rx ALPRAZolam [Xanax] 0.25 mg PO TID PRN 3 Days #9 tab 05/17/19 Rx Apixaban [Eliquis] 2.5 mg PO BID #60 tablet 05/19/19 Rx Allergies Allergy/AdvReac Type Severity Reaction Status Date / Time sulfamethoxazole AdvReac Unknown Nausea & Verified 05/17/19 08:36 [From Bactrim] Vomiting trimethoprim [From Bactrim] AdvReac Unknown Nausea & Verified 05/17/19 08:36 Vomiting Physical Exam Vitals: Vital Signs Temp Pulse Pulse Resp BP Pulse Ox 05/19/19 12:27 96.9 F L 61 18 162/77 98 05/19/19 11:07 68 05/19/19 10:57 66 05/19/19 07:34 70 05/19/19 07:20 68 05/19/19 06:51 97.9 F 57 L 18 138/71 99 05/19/19 00:00 98 F 67 20 127/64 97 05/18/19 20:00 97.9 F 67 18 135/64 96 05/18/19 19:45 70 16 05/18/19 19:34 70 16 05/18/19 16:30 70 16 05/18/19 16:20 71 16 96 05/18/19 16:00 97.8 F 62 16 138/59 99 Intake and Output 05/19/19 05/19/19 05/19/19 06:59 14:59 22:59 Intake Total 500 Balance 500 Intake: IV 500 Vancomycin 2,000 mg In 500 Sodium Chloride 0.9% 500 ml 500 ml @ 167 mls/hr IVPB ONCE ONE Rx#: [id number] Other: Voiding Method Toilet Urinal # Voids 2 Weight 121.1 kg Physical exam: General Appearance: Alert, cooperative, no distress, appears stated age. Skin: See HPI all other Skin color, texture, tugor normal, no rashes or lesions. Neurologic: Alert oriented x3 Results CBC & Chem 7: 05/19/19 07:54 05/19/19 07:54 Labs: Abnormal Lab Results - Last 24 Hours (Table) 05/18/19 05/18/19 05/18/19 Range/Units 14:47 16:33 20:03 RBC (4.30-5.90) m/uL Hgb (13.0-17.5) gm/dL Hct (39.0-53.0) % MCV (80.0-100.0) fL RDW (11.5-15.5) % Plt Count (150-450) k/uL Lymphocytes # (1.0-4.8) k/uL Potassium (3.5-5.1) mmol/L Chloride (98-107) mmol/L BUN (9-20) mg/dL Creatinine (0.66-1.25) mg/dL Glucose (74-99) mg/dL POC Glucose (mg/dL) 215 H 221 H (75-99) mg/dL Procalcitonin 0.36 H (0.02-0.09) ng/mL 05/19/19 05/19/19 05/19/19 Range/Units 06:54 07:54 07:54 RBC 3.67 L (4.30-5.90) m/uL Hgb 12.0 L (13.0-17.5) gm/dL Hct 38.6 L (39.0-53.0) % MCV 105.0 H (80.0-100.0) fL RDW 15.7 H (11.5-15.5) % Plt Count 129 L (150-450) k/uL Lymphocytes # 0.9 L (1.0-4.8) k/uL Potassium 5.3 H (3.5-5.1) mmol/L Chloride 96 L (98-107) mmol/L BUN 66 H (9-20) mg/dL Creatinine 6.06 H (0.66-1.25) mg/dL Glucose 191 H (74-99) mg/dL POC Glucose (mg/dL) 186 H (75-99) mg/dL Procalcitonin (0.02-0.09) ng/mL Microbiology - Last 24 Hours (Table) 05/17/19 08:19 Blood Culture - Preliminary Blood No Growth after 48 hours Assessment and Plan (1) Chronic venous hypertension w/ulcer and inflammation involv both sides Current Visit: Yes Status: Acute Code(s): I87.333 - CHRONIC VENOUS HTN W ULCER AND INFLAM OF BILATERAL LOW EXTRM; L97.919 - NON-PRS CHRONIC ULC UNSP PRT OF R LOW LEG W UNSP SEVERITY; L97.929 - NON-PRS CHRONIC ULC UNSP PRT OF L LOW LEG W UNSP SEVERITY SNOMED Code(s): 603870832 (2) Diabetic foot ulcer Current Visit: Yes Status: Acute Code(s): E11.621 - TYPE 2 DIABETES MELLITUS WITH FOOT ULCER SNOMED Code(s): 676974944 (3) Ulcer of right lower extremity with fat layer exposed Current Visit: No Status: Acute Code(s): L97.912 - NON-PRS CHR ULC UNSP PRT OF R LOW LEG W FAT LAYER EXPOSED SNOMED Code(s): 77007828 Plan: Patient would benefit from wound care. However he would like to see the vascular surgeon prior to make an appointment to wound care. We'll apply honey alginate to the ulcerations to the medial and lateral left lower extremity and dorsal right foot. Apply foam to the right great toe. Apply 2 layers of Tubigrip to bilateral lower extremities. Keep legs elevated as much as possible. Thank you kindly for the consultation. Any questions please contact the wound care center. DNP note has been reviewed and discussed with Dr. Messina and the impression and plan of care has been directed as dictated.
[2019-05-19 15:23] VITALS: BMI 33.3
[2019-05-19 17:13] LABS: Glucose,Whole Blood 298 mg/dL (75-99)
[2019-05-19 20:56] LABS: Glucose,Whole Blood 245 mg/dL (75-99)
[2019-05-19] MEDS: INSULIN DETEMIR (LEVEMIR) 100 UNIT/ML SYR SQ SCH (21:13)
[2019-05-20] MEDS: SYMBICORT 160-4.5 MCG INHALER INHALATION SCH ×2 (06:14→21:00)
[2019-05-20] MEDS: ALBUTEROL NEBULIZED 2.5 MG/3 ML INHALATION SCH ×4 (06:14→21:00)
[2019-05-20] MEDS ORDERED: ALPRAZolam 0.5 MG TAB PO PRN (06:48)
[2019-05-20] MEDS ORDERED: ALPRAZolam 0.5 MG TAB PO STA (06:48)
--- NOTE | 2019-05-20 06:52 | P.PN ---
Subjective Patient is a 68-year-old male with a known history of ESRD on hemodialysis MWF- left upper extremity fistula, atrial fibrillation currently not on an ticoagulation, diabetes type 2 is elevated, diabetic retinopathy and chronic lower extremity wounds/venous stasis ulcers came to ER with complaints of low blood sugar, anxiety and shortness of breath. Patient says that he woke up in the morning and felt very anxious and his blood sugar was low between 80 and 90. He felt very anxious and short of breath. Patient does have exertional short of breath. Denied any complaints of chest pain. Patient says that he isn't having worsening leg swelling and bilateral lower extremity wounds. Patient has home healthcare and wound care at home. EKG showed atrial fibrillation with heart rate controlled around 72, troponin 0.035, Hemoglobin 10.7 and creatinine 4 BNP 48 100 Patient was given a dose of IV Lasix 40 mg in the ER and also started on vancom ycin and Zosyn. 05/18/2019 Patient is currently sitting in the chair. Denied any complaints of chest pain or worsening shortness of breath. Patient remained in atrial fibrillation. Started on anticoagulation with Eliquis 2.5 mg twice daily. Continued on Lasix 80 mg twice a day. No fever no chills. No cough or sputum production. No leukocytosis. Chest x- ray showed left lower lobe pneumonia. Patient says that he was treated for pneumonia about a month back and completed antibiotic course. Pro-calcitonin level was ordered. Patient did have hemodialysis yesterday and is regular hemodialysis days are MWF Otherwise patient is still having significant bilateral lower extremity edema. Vascular surgery is not planned for any procedure at this time. Outpatient follow-up recommended. Patient is being followed by nephrology and cardiology. Patient is a poor historian. Patient's is at bedside. 05/19/2019 Patient was admitted for necrotic toes and found to have bilateral dry toe gangrene and his been a evaluated by Dr. Blount once consult. Him for discharge and follow-up as an outpatient in 2-4 weeks, patient prepped and he agrees. Also on admission he has A. fib, his end-stage renal disease on hemodialysis that is due today, he has left lower extremity venous ulcer and low normal- blood sugar on admission.Currently patient is sitting in chair at bedside, he is fully awake and oriented although he is not tachypneic, not dyspneic and saturating 97% on room air. He has mild, with no phlegm, no chest pain, his both legs are wrapped dressing. Cardiology team started the patient on Eliquis, is also currently on aspirin 81 mg. Multiple check with floor attendant team about her recommendation, also will consult social sciences department chair to see coverage for Eliquis. Also consult infectious disease to see him antibiotics on discharge as he is currently on vancomycin pharmacy to dose 05/20/2018 Patient was still in chair, not in distress, however he was feeling anxious and wanting something to help with anxiety, one dose of Xanax is a provided orally. Patient still has left lower extremity ulcer and gangrene, his been on IV vancomycin and infectious disease been consulted, Dr. Olvera wants to see the pt in his office in 2-4 weeks, patient informed and he agrees. Flower Maker started him on Eliquis 2.5 mg for his A. fib, risk of bleeding including but not limited into the brain and the testing are explained and he agrees. We'll discuss also with cardiology team about being on aspirin and Eliquis, we'll follow the recommendation. No labs today. Appreciate pulmonary input. Sugar has been stable, no more hypoglycemia. Objective - Vital Signs Vital signs: Vital Signs Temp 97.6 F 05/20/19 06:13 Pulse 68 05/20/19 06:23 Resp 18 05/20/19 06:13 BP 149/67 05/20/19 06:13 Pulse Ox 94 L 05/20/19 06:15 Intake & Output 05/19/19 05/19/19 05/20/19 06:59 18:59 06:59 Intake Total 500 300 Output Total 2800 Balance 500 -2500 Weight 121.1 kg 121.1 kg 122.3 kg Intake: IV 500 Vancomycin 2,000 mg In 500 Sodium Chloride 0.9% 500 ml 500 ml @ 167 mls/hr IVPB ONCE ONE Rx#: [id number] Hemodialysis 300 Output: Hemodialysis 2800 Other: Voiding Method Toilet Toilet Urinal Urinal # Voids 0 2 - Exam Patient is lying in the bed comfortably, no acute distress, awake alert and oriented.. HEENT: Normocephalic. Neck is supple. Pupils reactive. Nostrils clear. Oral cavity is moist. Ears reveal no drainage. Neck reveals no JVD, carotid bruits, or thyromegaly. CHEST EXAMINATION: Trachea is central. Symmetrical expansion. Bibasilar crackles. Lung albarran clear to auscultation and percussion. CARDIAC: Normal S1, S2 with no gallops. No murmurs ABDOMEN: Soft. Bowel sounds normal. No organomegaly. No abdominal bruits. -Extremities: 2+ bilateral pitting edema. No clubbing or cyanosis. Bilateral toe gangrene, dressing is in place Neurologically awake, alert, oriented x3 with well-coordinated movements. No focal deficits noted Skin: Bilateral lower extremity multiple skin wounds with no purulent discharge. Venous stasis changes.. Psychiatric: Cooperative. Non-suicidal Musculoskeletal: No joint swelling or deformity. Normal range of motion. - Labs CBC & Chem 7: 05/19/19 07:54 05/19/19 07:54 Labs: Abnormal Lab Results - Last 24 Hours (Table) 05/18/19 05/19/19 05/19/19 Range/Units 14:47 06:54 07:54 RBC (4.30-5.90) m/uL Hgb (13.0-17.5) gm/dL Hct (39.0-53.0) % MCV (80.0-100.0) fL RDW (11.5-15.5) % Plt Count (150-450) k/uL Lymphocytes # (1.0-4.8) k/uL Potassium 5.3 H (3.5-5.1) mmol/L Chloride 96 L (98-107) mmol/L BUN 66 H (9-20) mg/dL Creatinine 6.06 H (0.66-1.25) mg/dL Glucose 191 H (74-99) mg/dL POC Glucose (mg/dL) 186 H (75-99) mg/dL Procalcitonin 0.36 H (0.02-0.09) ng/mL 05/19/19 05/19/19 05/19/19 Range/Units 07:54 17:06 20:53 RBC 3.67 L (4.30-5.90) m/uL Hgb 12.0 L (13.0-17.5) gm/dL Hct 38.6 L (39.0-53.0) % MCV 105.0 H (80.0-100.0) fL RDW 15.7 H (11.5-15.5) % Plt Count 129 L (150-450) k/uL Lymphocytes # 0.9 L (1.0-4.8) k/uL Potassium (3.5-5.1) mmol/L Chloride (98-107) mmol/L BUN (9-20) mg/dL Creatinine (0.66-1.25) mg/dL Glucose (74-99) mg/dL POC Glucose (mg/dL) 298 H 245 H (75-99) mg/dL Procalcitonin (0.02-0.09) ng/mL Microbiology - Last 24 Hours (Table) 05/17/19 08:19 Blood Culture - Preliminary Blood No Growth after 48 hours Assessment and Plan Assessment: Shortness of breath secondary to fluid overload, currently completely resolved Bilateral dry gangrene of the toes and left lower extremity venous ulcer ESRD on hemodialysis Sunday and Sunday left upper extremity fistula Elevated troponin level likely due to volume overload. Patient is evaluated by floor attendant Uncontrolled hypertension, better controlled Acute on Chronic CHF with ejection fraction unknown Chronic bilateral lower extremity swelling due to venous stasis ulcers/ wounds. Peripheral vascular disease with bilateral toe dry gangrene. Vascular surgery recommends outpatient follow-up. Paroxysmal atrial fibrillation. 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 Chronic back pain Anxiety/depression Previous history of smoking GERD History of rheumatoid arthritis Plan: This is a pleasant 68 years old male who presents with bilateral lower extremity toe gangrene with left lower extremity venous ulcer. Patient currently on IV vancomycin, pharmacy to dose. Dr. Olvera from consult through the patient for discharge, we are going to consult infectious disease for antibiotics upon discharge. Also floor attendant we'll start him on Eliquis, consult lead case manager for Brett., He is also currently with aspirin 81 mg, cardiology team are following the patient closely, sugars controlled. He is getting hemodialysis and nephrology on the case. Follow-up recommendation by consultants. We'll ask for physical therapy evaluation Labs and medication were reviewed.. Continue same treatment. Continue with symptomatic treatment. Resume home medication. Monitor lytes and vitals. DVT and GI prophylaxis. Further recommendations of the clinical course of the patient DVT prophylaxis: Eliquis GI Prophylaxis: Ppi PT/OT: Pending Prognosis is guarded Discussed with staff
[2019-05-20] MEDS: APIXABAN 2.5 MG TABLET PO SCH ×2 (08:38→20:34)
[2019-05-20] MEDS: PANTOPRAZOLE 40 MG TABLET PO SCH (08:38)
[2019-05-20] MEDS: CALCIUM ACETATE 667 MG TAB PO SCH ×3 (08:38→16:58)
[2019-05-20] MEDS: METOPROLOL TARTRATE 50 MG TAB PO SCH ×2 (08:38→20:34)
[2019-05-20] MEDS: ASPIRIN 81 MG PO SCH (08:38)
[2019-05-20] MEDS: FENOFIBRATE 160 MG TAB PO SCH (08:38)
[2019-05-20] MEDS: FUROSEMIDE 80 MG TAB PO SCH ×2 (08:38→16:58)
[2019-05-20] MEDS: FAMOTIDINE 20 MG TAB PO SCH (08:38)
[2019-05-20] MEDS: CALCIUM CARB-MAG CARB-FOLIC 1 EACH TAB PO SCH ×2 (08:39→16:58)
[2019-05-20] MEDS: FOLIC ACID-VIT B COMPLEX-VIT C 1 CAP PO SCH (08:39)
--- NOTE | 2019-05-20 10:50 | P.PN ---
Subjective Progress Note Date: 05/20/19 Principal diagnosis: chronic left pleural effusion slightly increased, shortness of breath, and lower extremity wounds On 05/20/2019 patient seen in follow-up on the general medical floor, she is sitting up in the recliner, he is currently on 2 L of oxygen per nasal cannula for increased shortness of breath this morning, however earlier today his room air pulse ox was 94-96%, his been afebrile, no complaints of chest pain, still has exertional dyspnea, and lower extremity edema. Patient had his hemodialysis treatment last night would removal of 2.5 L of fluid. He states overall he is feeling a bit better, his mentation is awake and alert and oriented 3, no confusion, no disorientation, answering questions appropriately, no signs of altered mentation. No new labs today, no new chest x-rays, we'll repeat a chest x-ray to follow-up on the appearance of left pleural effusion Objective - Vital Signs Vital signs: Vital Signs Temp 97.6 F 05/20/19 06:13 Pulse 68 05/20/19 06:23 Resp 18 05/20/19 06:13 BP 149/67 05/20/19 06:13 Pulse Ox 94 L 05/20/19 06:15 Intake & Output 05/19/19 05/20/19 05/20/19 18:59 06:59 18:59 Intake Total 500 300 Output Total 2800 Balance 500 -2500 Weight 121.1 kg 122.3 kg Intake: IV 500 Vancomycin 2,000 mg In 500 Sodium Chloride 0.9% 500 ml 500 ml @ 167 mls/hr IVPB ONCE ONE Rx#: [id number] Hemodialysis 300 Output: Hemodialysis 2800 Other: Voiding Method Toilet Toilet Urinal Urinal # Voids 0 2 - Exam GENERAL EXAM: Alert, very pleasant, 68-year-old white male, sitting up in the recliner, leaning over a table on 2 L of oxygen, appears fatigued, but comfortable in no apparent distress. HEAD: Normocephalic/atraumatic. EYES: Normal reaction of pupils, equal size. Conjunctiva pink, sclera white. NOSE: Clear with pink turbinates. THROAT: No erythema or exudates. NECK: No masses, no JVD, no thyroid enlargement, no adenopathy. CHEST: No chest wall deformity. Symmetrical expansion. LUNGS: Equal air entry diminished breath sounds at the bases, left greater than right CVS: Regular rate and rhythm, normal S1 and S2, no gallops, no murmurs, no rubs ABDOMEN: Soft, nontender. No hepatosplenomegaly, normal bowel sounds, no guarding or rigidity. EXTREMITIES: No clubbing, 1+ lower extremity edema, no cyanosis, 2+ pulses and upper and lower extremities. MUSCULOSKELETAL: Muscle strength and tone normal. SPINE: No scoliosis or deformity SKIN: No rashes, chronic wounds on bilateral lower extremities, covered with dressings CENTRAL NERVOUS SYSTEM: Alert and oriented -3. No focal deficits, tone is normal in all 4 extremities. PSYCHIATRIC: Alert and oriented -3. Appropriate affect. Intact judgment and insight. - Labs CBC & Chem 7: 05/19/19 07:54 05/19/19 07:54 Labs: Abnormal Lab Results - Last 24 Hours (Table) 05/18/19 05/19/19 05/19/19 Range/Units 14:47 17:06 20:53 POC Glucose (mg/dL) 298 H 245 H (75-99) mg/dL Procalcitonin 0.36 H (0.02-0.09) ng/mL Microbiology - Last 24 Hours (Table) 05/17/19 08:19 Blood Culture - Preliminary Blood No Growth after 72 hours Assessment and Plan Plan: Assessment: 1 Chronic left lower extremity venous ulcer and bilateral toe dry gangrene secondary to chronic venous insufficiency and peripheral arterial disease. Following by infectious disease. Initiated on vancomycin. 2 Chronic left lower lung opacitiy/effusion without significant change compared to previous. The patient is currently on room air. 3 End stage renal disease receiving hemodialysis Sunday 4 Diabetes mellitus, type II 5 Diabetic neuropathy 6 Atrial fibrillation anticoagulated with Eliquis 7 Diabetic retinopathy/legally blind 8 History of endocarditis with vegetation the mitral valve 9 Chronic obstructive pulmonary disease maintained on Symbicort and albuterol in the outpatient setting 10 History of chronic tobacco dependence 11 Rheumatoid arthritis 12 History of seizure disorder Plan: We'll obtain a follow-up chest x-ray. Patient had his hemodialysis treatment last night would removal of 2.5 L of fluid. Still has exertional dyspnea, and lower extremity edema but in no acute distress. Tinea is on oral Lasix, continues on IV antibiotics for lower extremity wounds, no fever or chills, hemodynamically patient is stable, no altered mentation, vital signs are stable. Continue with current medical treatment, will reevaluate for a need to proceed with left-sided thoracentesis based on today's chest x-ray. I performed a history & physical examination of the patient and discussed their management with my nurse practitioner, Raven Arias. I reviewed the nurse practitioner's note and agree with the documented findings and plan of care. Lung sounds are positive for diminished breath sounds at left lower base. The findings and the impression was discussed with the patient. I attest to the documentation by the nurse practitioner. Time with Patient: Less than 30
--- NOTE | 2019-05-20 11:23 | P.PN ---
Subjective Patient is seen in follow-up for end-stage renal disease. He is maintained on hemodialysis on Sunday schedule. No active complaints today. Denies chest pain or shortness of breath. Blood sugars stable. Vital signs are stable. General: The patient appeared well nourished and normally developed. HEENT: Head exam is unremarkable. Neck is without jugular venous distension. LUNGS: Lungs are clear to auscultation and percussion. Breath sounds decreased. HEART: Rate and Rhythm are regular. First and second heart sounds normal. No murmurs, rubs or gallops. ABDOMEN: Abdominal exam reveals normal bowel sounds. Non-tender and non- distended. No evidence of peritonitis. EXTREMITITES: 1+ edema. No drainage. Objective - Vital Signs Vital signs: Vital Signs Temp 97.6 F 05/20/19 06:13 Pulse 68 05/20/19 11:07 Resp 18 05/20/19 06:13 BP 149/67 05/20/19 06:13 Pulse Ox 94 L 05/20/19 06:15 Intake & Output 05/19/19 05/20/19 05/20/19 18:59 06:59 18:59 Intake Total 500 300 Output Total 2800 Balance 500 -2500 Weight 121.1 kg 122.3 kg Intake: IV 500 Vancomycin 2,000 mg In 500 Sodium Chloride 0.9% 500 ml 500 ml @ 167 mls/hr IVPB ONCE ONE Rx#: [id number] Hemodialysis 300 Output: Hemodialysis 2800 Other: Voiding Method Toilet Toilet Urinal Urinal # Voids 0 2 - Labs CBC & Chem 7: 05/19/19 07:54 05/19/19 07:54 Labs: Abnormal Lab Results - Last 24 Hours (Table) 05/18/19 05/19/19 05/19/19 Range/Units 14:47 17:06 20:53 POC Glucose (mg/dL) 298 H 245 H (75-99) mg/dL Procalcitonin 0.36 H (0.02-0.09) ng/mL Microbiology - Last 24 Hours (Table) 05/17/19 08:19 Blood Culture - Preliminary Blood No Growth after 72 hours Assessment and Plan Plan: Assessment: 1. End-stage renal disease maintained on hemodialysis on Sunday schedule. 2. Lower extremity wounds. Maintained on IV vancomycin. 3. Insulin-dependent diabetes mellitus. 4. Volume overload. Better. 5. Chronic kidney disease mineral bone disease Maintained on phosphate binders. Plan: Hemodialysis tomorrow. Monitor vancomycin levels. Target level less than 20. Stable for discharge from nephrology standpoint.
--- NOTE | 2019-05-20 12:24 | CDI ---
Documentation Clarification Form Date: 05/20/2019 12:02:58 PM From: Sherri Felix RN, CCDS Admit Date: 05/17/2019 08:11:00 AM Patient Name: Grzegorz Palma Visit Number: [id number] ATTENTION: The Clinical Documentation Specialists (CDI) and [facility] Coding Staff appreciate your assistance in clarifying documentation. Please respond to the clarification below the line at the bottom and electronically sign. The CDI & [facility] Coding staff will review the response and follow-up if needed. Please note: Queries are made part of the Legal Health Record. If you have any questions, please contact the author of this message via ITS. Dr. Finnegan E Sheet CHF is documented in the H&P and progress notes and requires further specificity. History/Risk Factors: CHF, ESRD on HD, Paroxysmal Atrial Fib, HTN, chronic anemia Clinical Indicators: VS/Pulse OX: 05/17/19 0545: Temp 98.4, Hr 75, RR 20, B/P 132/48, Spo2 95% ra BNP: 48,100 05/19/19 Echocardiogram Results: EF 40-45%, mild concentric LVH 05/18/19 Chest X Ray: LEFT LOWER LOBE AIRSPACE DISEASE. 2. LEFT-SIDED EFFUSION. 3. INTERVAL DEVELOPMENT OF INTERSTITIAL CHANGE MAY REFLECT EARLY EDEMA.PLEASE CORRELATE FOR FLUID STATUS. Treatment: 05/17 0759 Lasix 40 mg IVP x 1 dose 05/17 1600 Lasix 80 mg PO BID 05/17 2100 Lopressor 50 mg Po BID In your professional opinion, can you please clarify the acuity and type of CHF if known? Systolic Heart Failure: Acute Chronic Acute on Chronic Systolic & Diastolic Heart Failure: Acute Chronic Acute on Chronic Heart Failure Unable to Determine Other, please specify (Last Revision: July 2017) chronic systolic CHF MTDD
--- NOTE | 2019-05-20 13:09 | XR ---
EXAMINATION TYPE: XR chest 2V DATE OF EXAM: 05/20/2019 COMPARISON: 05/18/2019 TECHNIQUE: PA and lateral views submitted. HISTORY: Difficulty breathing FINDINGS: Right-sided consolidation and pleural effusion stable. Heart size mildly prominent. Biapical pleural thickening with no pneumothorax. Mildly coarsened interstitium. Arthropathy of the shoulders with dif fuse osteopenia. IMPRESSION: 1. Stable left lower lobe infiltrate and small effusion. Interstitial prominence may represent chroni c interstitial lung disease although mild venous congestion not excluded.
--- NOTE | 2019-05-20 16:21 | PN ---
PROGRESS NOTE DATE OF SERVICE: 05/20/2019 REASON FOR FOLLOWUP: Abnormal x-ray; question of pneumonia and need for antibiotic therapy. INTERVAL HISTORY: The patient is currently afebrile. The patient has been breathing comfortably. The patient denies having any chest pain. Very minimal cough. No nausea, no vomiting, no abdominal pain or any diarrhea. Denies pain to the right lateral foot toe PHYSICAL EXAMINATION: Blood pressure 155/71 with a pulse of 63, temperature 98.6. He is 99% on room air. General description is an elderly male up in the chair in no distress. RESPIRATORY SYSTEM: Unlabored breathing with decreased breath sounds at the base. No wheeze. HEART: S1, S2. Regular rate and rhythm. ABDOMEN: Soft. No tenderness. LABS/IMAGING: White count has been normal. Repeat chest x-ray with stable left lower lobe infiltrate versus effusion. DIAGNOSTIC IMPRESSION AND PLAN: Patient admitted to hospital with difficulty in breathing, predominantly, in this patient who did have not any fever or elevated white count, with a chronic left lower lobe infiltrate and effusion; clinically not behaving as pneumonia. The patient will be monitored closely off antibiotic therapy. Pulmonary is following the patient closely and may do a thoracocentesis, depending upon his repeat x-ray, which did not show any worsening effusion. Continue with supportive care. MMODL / IJN: [id number] / FELIPE
[2019-05-20] MEDS: INSULIN DETEMIR (LEVEMIR) 100 UNIT/ML SYR SQ SCH (20:34)
[2019-05-20 20:43] LABS: Glucose,Whole Blood 294 mg/dL (75-99)
[2019-05-21] MEDS: FUROSEMIDE 80 MG TAB PO SCH ×2 (07:13→15:10)
[2019-05-21] MEDS: METOPROLOL TARTRATE 50 MG TAB PO SCH ×2 (07:13→21:27)
[2019-05-21] MEDS: ASPIRIN 81 MG PO SCH (07:13)
[2019-05-21] MEDS: APIXABAN 2.5 MG TABLET PO SCH ×2 (07:13→21:27)
[2019-05-21] MEDS: FENOFIBRATE 160 MG TAB PO SCH (07:13)
[2019-05-21] MEDS: CALCIUM CARB-MAG CARB-FOLIC 1 EACH TAB PO SCH ×2 (07:13→16:59)
[2019-05-21] MEDS: FAMOTIDINE 20 MG TAB PO SCH (07:13)
[2019-05-21] MEDS: PANTOPRAZOLE 40 MG TABLET PO SCH (07:13)
[2019-05-21] MEDS: FOLIC ACID-VIT B COMPLEX-VIT C 1 CAP PO SCH (07:13)
[2019-05-21] MEDS: CALCIUM ACETATE 667 MG TAB PO SCH ×3 (07:13→16:58)
[2019-05-21] MEDS: ALBUTEROL NEBULIZED 2.5 MG/3 ML INHALATION SCH ×4 (07:48→21:06)
[2019-05-21] MEDS: SYMBICORT 160-4.5 MCG INHALER INHALATION SCH ×2 (07:48→21:06)
--- NOTE | 2019-05-21 07:52 | P.PN ---
Subjective Patient is a 68-year-old male with a known history of ESRD on hemodialysis MWF- left upper extremity fistula, atrial fibrillation currently not on an ticoagulation, diabetes type 2 is elevated, diabetic retinopathy and chronic lower extremity wounds/venous stasis ulcers came to ER with complaints of low blood sugar, anxiety and shortness of breath. Patient says that he woke up in the morning and felt very anxious and his blood sugar was low between 80 and 90. He felt very anxious and short of breath. Patient does have exertional short of breath. Denied any complaints of chest pain. Patient says that he isn't having worsening leg swelling and bilateral lower extremity wounds. Patient has home healthcare and wound care at home. EKG showed atrial fibrillation with heart rate controlled around 72, troponin 0.035, Hemoglobin 10.7 and creatinine 4 BNP 48 100 Patient was given a dose of IV Lasix 40 mg in the ER and also started on vancom ycin and Zosyn. 05/18/2019 Patient is currently sitting in the chair. Denied any complaints of chest pain or worsening shortness of breath. Patient remained in atrial fibrillation. Started on anticoagulation with Eliquis 2.5 mg twice daily. Continued on Lasix 80 mg twice a day. No fever no chills. No cough or sputum production. No leukocytosis. Chest x- ray showed left lower lobe pneumonia. Patient says that he was treated for pneumonia about a month back and completed antibiotic course. Pro-calcitonin level was ordered. Patient did have hemodialysis yesterday and is regular hemodialysis days are MWF Otherwise patient is still having significant bilateral lower extremity edema. Vascular surgery is not planned for any procedure at this time. Outpatient follow-up recommended. Patient is being followed by nephrology and cardiology. Patient is a poor historian. Patient's is at bedside. 05/19/2019 Patient was admitted for necrotic toes and found to have bilateral dry toe gangrene and his been a evaluated by Dr. Blount once consult. Him for discharge and follow-up as an outpatient in 2-4 weeks, patient prepped and he agrees. Also on admission he has A. fib, his end-stage renal disease on hemodialysis that is due today, he has left lower extremity venous ulcer and low normal- blood sugar on admission.Currently patient is sitting in chair at bedside, he is fully awake and oriented although he is not tachypneic, not dyspneic and saturating 97% on room air. He has mild, with no phlegm, no chest pain, his both legs are wrapped dressing. Cardiology team started the patient on Eliquis, is also currently on aspirin 81 mg. Multiple check with head of drama team about her recommendation, also will consult neonatal social worker to see coverage for Eliquis. Also consult infectious disease to see him antibiotics on discharge as he is currently on vancomycin pharmacy to dose 05/20/2018 Patient was still in chair, not in distress, however he was feeling anxious and wanting something to help with anxiety, one dose of Xanax is a provided orally. Patient still has left lower extremity ulcer and gangrene, his been on IV vancomycin and infectious disease been consulted, Dr. Olvera wants to see the pt in his office in 2-4 weeks, patient informed and he agrees. Oral And Maxillofacial Surgery Resident started him on Eliquis 2.5 mg for his A. fib, risk of bleeding including but not limited into the brain and the testing are explained and he agrees. We'll discuss also with cardiology team about being on aspirin and Eliquis, we'll follow the recommendation. No labs today. Appreciate pulmonary input. Sugar has been stable, no more hypoglycemia. 05/21/2019 Patient is a stable compared to the last few days, however he still have significant leg swelling and he has some exertional dyspnea when he goes to the restroom, he is on oxygen currently, he states that he takes diltiazem oxygen at home. Pulmonary team evaluated the patient for possible left thoracocentesis. Infectious disease R following case also regarding antibiotic need. Vitals stable. Continue with hemodialysis. Eliquis has been added for A. fib and patient agrees with it and risk of bleeding are explained. Objective - Vital Signs Vital signs: Vital Signs Temp 98.0 F 05/21/19 05:28 Pulse 66 05/21/19 05:28 Resp 18 05/21/19 05:28 BP 158/59 05/21/19 05:28 Pulse Ox 98 05/21/19 05:28 Intake & Output 05/20/19 05/21/19 05/21/19 18:59 06:59 18:59 Intake Total 540 Balance 540 Intake: Oral 540 Other: Voiding Method Toilet Toilet Urinal Urinal # Voids 3 0 # Bowel Movements 1 1 - Exam Patient is lying in the bed comfortably, no acute distress, awake alert and oriented.. HEENT: Normocephalic. Neck is supple. Pupils reactive. Nostrils clear. Oral cavity is moist. Ears reveal no drainage. Neck reveals no JVD, carotid bruits, or thyromegaly. CHEST EXAMINATION: Trachea is central. Symmetrical expansion. Bibasilar crackles. Lung albarran clear to auscultation and percussion. CARDIAC: Normal S1, S2 with no gallops. No murmurs ABDOMEN: Soft. Bowel sounds normal. No organomegaly. No abdominal bruits. -Extremities: 2+ bilateral pitting edema. No clubbing or cyanosis. Bilateral toe gangrene, dressing is in place Neurologically awake, alert, oriented x3 with well-coordinated movements. No focal deficits noted Skin: Bilateral lower extremity multiple skin wounds with no purulent discharge. Venous stasis changes.. Psychiatric: Cooperative. Non-suicidal Musculoskeletal: No joint swelling or deformity. Normal range of motion. - Labs CBC & Chem 7: 05/19/19 07:54 05/19/19 07:54 Labs: Abnormal Lab Results - Last 24 Hours (Table) 05/20/19 Range/Units 20:37 POC Glucose (mg/dL) 294 H (75-99) mg/dL Microbiology - Last 24 Hours (Table) 05/17/19 08:19 Blood Culture - Preliminary Blood No Growth after 72 hours Assessment and Plan Assessment: Shortness of breath secondary to fluid overload, currently completely resolved Bilateral dry gangrene of the toes and left lower extremity venous ulcer ESRD on hemodialysis Sunday and Sunday left upper extremity fistula Elevated troponin level likely due to volume overload. Patient is evaluated by head of drama Uncontrolled hypertension, better controlled Acute on Chronic CHF with ejection fraction unknown Chronic bilateral lower extremity swelling due to venous stasis ulcers/ wounds. Peripheral vascular disease with bilateral toe dry gangrene. Vascular surgery recommends outpatient follow-up. Paroxysmal atrial fibrillation. 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 Chronic back pain Anxiety/depression Previous history of smoking GERD History of rheumatoid arthritis Plan: This is a pleasant 68 years old male who presents with bilateral lower extremity toe gangrene with left lower extremity venous ulcer. Patient currently on IV vancomycin, pharmacy to dose. Dr. Olvera from consult through the patient for discharge, we are going to consult infectious disease for antibiotics upon discharge. Also head of drama we'll start him on Eliquis, consult binder caser for Brett., He is also currently with aspirin 81 mg, cardiology team are following the patient closely, sugars controlled. He is getting hemodialysis and nephrology on the case. Follow-up recommendation by consultants. We'll ask for physical therapy evaluation Labs and medication were reviewed.. Continue same treatment. Continue with symptomatic treatment. Resume home medication. Monitor lytes and vitals. DVT and GI prophylaxis. Further recommendations of the clinical course of the patient DVT prophylaxis: Eliquis GI Prophylaxis: Ppi PT/OT: Pending Prognosis is guarded Discussed with staff
--- NOTE | 2019-05-21 12:57 | P.PN ---
Subjective Progress Note Date: 05/21/19 On today's evaluation, the patient is still having some limited swelling in lower extremities bilaterally. He is undergoing dialysis 3 times a week MWF. He is on room air oxygen. The dural effusions on the left is stable. He is on long-term anticoagulation for atrial fibrillation. He has A. fib and the rate is controlled for now. He is on vancomycin. He has multiple comorbidities including diabetes mellitus type 2, diabetic neuropathy, peripheral neuropathy, chronic wounds and venous stasis in the lower extremities. No other new complaints otherwise for now. Objective - Vital Signs Vital signs: Vital Signs Temp 97.8 F 05/21/19 11:48 Pulse 74 05/21/19 11:48 Resp 14 05/21/19 11:48 BP 144/69 05/21/19 11:48 Pulse Ox 98 05/21/19 05:28 Intake & Output 05/20/19 05/21/19 05/21/19 18:59 06:59 18:59 Intake Total 540 300 Output Total 2603 Balance 540 -2303 Intake: Oral 540 Hemodialysis 300 Output: Hemodialysis 2603 Other: Voiding Method Toilet Toilet Toilet Urinal Urinal Urinal # Voids 3 0 # Bowel Movements 1 1 - Exam GENERAL EXAM: Alert, very pleasant, 68-year-old white male, sitting up in the recliner, leaning over a table on 2 L of oxygen, appears fatigued, but comfo rtable in no apparent distress. HEAD: Normocephalic/atraumatic. EYES: Normal reaction of pupils, equal size. Conjunctiva pink, sclera white. NOSE: Clear with pink turbinates. THROAT: No erythema or exudates. NECK: No masses, no JVD, no thyroid enlargement, no adenopathy. CHEST: No chest wall deformity. Symmetrical expansion. LUNGS: Equal air entry diminished breath sounds at the bases, left greater than right CVS: Regular rate and rhythm, normal S1 and S2, no gallops, no murmurs, no rubs ABDOMEN: Soft, nontender. No hepatosplenomegaly, normal bowel sounds, no guarding or rigidity. EXTREMITIES: No clubbing, 1+ lower extremity edema, no cyanosis, 2+ pulses and upper and lower extremities. The patient has a functioning AV fistula in the left upper extremity. MUSCULOSKELETAL: Muscle strength and tone normal. SPINE: No scoliosis or deformity SKIN: No rashes, chronic wounds on bilateral lower extremities, covered with dressings CENTRAL NERVOUS SYSTEM: Alert and oriented -3. No focal deficits, tone is normal in all 4 extremities. PSYCHIATRIC: Alert and oriented -3. Appropriate affect. Intact judgment and insight. - Labs CBC & Chem 7: 05/19/19 07:54 05/19/19 07:54 Labs: Abnormal Lab Results - Last 24 Hours (Table) 05/20/19 Range/Units 20:37 POC Glucose (mg/dL) 294 H (75-99) mg/dL Microbiology - Last 24 Hours (Table) 05/17/19 08:19 Blood Culture - Preliminary Blood No Growth after 96 hours Assessment and Plan Plan: 1 Chronic left lower extremity venous ulcer and bilateral toe dry gangrene secondary to chronic venous insufficiency and peripheral arterial disease. Following by infectious disease. Initiated on vancomycin. 2 Chronic left lower lung opacitiy/effusion without significant change compared to previous. The patient is currently on room air. 3 End stage renal disease receiving hemodialysis Sunday 4 Diabetes mellitus, type II 5 Diabetic neuropathy 6 Atrial fibrillation anticoagulated with Eliquis 7 Diabetic retinopathy/legally blind 8 History of endocarditis with vegetation the mitral valve 9 Chronic obstructive pulmonary disease maintained on Symbicort and albuterol in the outpatient setting 10 History of chronic tobacco dependence 11 Rheumatoid arthritis 12 History of seizure disorder Plan The patient remains on a room air oxygen. The chest x-ray was done yesterday and showed a stable left-sided pleural effusion. He continues to undergo dialysis 3 times a week. He is on long-term and to coagulation with Eliquis. He is on vancomycin. Pulmonary status is stable. We will sign off the case and see as need basis.
--- NOTE | 2019-05-21 18:37 | PN ---
PROGRESS NOTE DATE OF SERVICE: 05/21/2019 REASON FOR FOLLOWUP: 1. Abnormal right sided pleural effusion. 2. The patient with right big toe and left 5th toe wound. INTERVAL HISTORY: The patient is currently afebrile, has been breathing comfortably. The patient denies having any chest pain or cough. No nausea, vomiting, abdominal pain or pain to the toe. PHYSICAL EXAMINATION: His blood pressure 141/72 with a pulse of 85. Temperature is 97.4. He is 97% on room air. General description is an elderly male up in the chair in no distress. Respiratory system: Unlabored breathing. Decreased breath sounds at the bases. No wheeze. Heart S1, S2. Regular rate and rhythm. Abdomen soft, no tenderness. The right big toe did have a scab, no cellulitis. Left fifth toe did not have any open wound or any drainage. LABS: White count of 6.1, blood culture has been negative. DIAGNOSTIC IMPRESSION AND PLAN: 1. Patient abnormal chest x-ray more likely chronic effusion. Clinically not behaving as pneumonia and is currently off antibiotic therapy. 2. Patient with right big toe and fifth toe no open wound and no cellulitis. No need for local wound care. Continue with Tubigrip for the lower extremity swelling. 3. Continue supportive care. MMODL / IJN: [id number] /
[2019-05-21 20:40] LABS: Glucose,Whole Blood 322 mg/dL (75-99)
[2019-05-21] MEDS: INSULIN DETEMIR (LEVEMIR) 100 UNIT/ML SYR SQ SCH (21:27)
--- NOTE | 2019-05-21 22:02 | PN ---
PROGRESS NOTE The patient is seen for followup for end-stage renal disease. He is status post hemodialysis today. Currently denies any significant complaints. Blood pressure 165/71, heart rate 60 per minute. Patient is afebrile. Examination of the heart S1, S2. Examination of the lungs, bilateral breath sounds are heard. Abdomen is soft, nontender. Examination of lower extremities shows both feet to be wrapped. LAB: Show sodium 138, potassium 5.3, chloride 96, BUN 66, serum creatinine 6.06. ASSESSMENT: 1. End-stage renal disease, on hemodialysis on a Sunday, Sunday, Sunday schedule. 2. Chronic kidney disease, mineral bone disorder. 3. Lower extremity cellulitis and wounds, maintained on vancomycin. 4. Volume overload, currently improved. PLAN: Next hemodialysis on Sunday. Continue antibiotics as per ID. MMODL / IJN: [id number] /
[2019-05-21] MEDS ORDERED: INSULIN DETEMIR (LEVEMIR) 100 UNIT/ML SYR SQ ONE (22:30)
[2019-05-22 04:59] VITALS: RESP 18
[2019-05-22] MEDS: FENOFIBRATE 160 MG TAB PO SCH (06:53)
[2019-05-22] MEDS: FOLIC ACID-VIT B COMPLEX-VIT C 1 CAP PO SCH (06:53)
[2019-05-22] MEDS: FAMOTIDINE 20 MG TAB PO SCH (06:53)
[2019-05-22] MEDS: METOPROLOL TARTRATE 50 MG TAB PO SCH (06:53)
[2019-05-22] MEDS: PANTOPRAZOLE 40 MG TABLET PO SCH (06:53)
[2019-05-22] MEDS: CALCIUM ACETATE 667 MG TAB PO SCH ×2 (06:53→11:08)
[2019-05-22] MEDS: ASPIRIN 81 MG PO SCH (06:53)
[2019-05-22] MEDS: FUROSEMIDE 80 MG TAB PO SCH (06:54)
[2019-05-22] MEDS: CALCIUM CARB-MAG CARB-FOLIC 1 EACH TAB PO SCH (06:54)
[2019-05-22] MEDS: APIXABAN 2.5 MG TABLET PO SCH (06:54)
[2019-05-22] MEDS: ALBUTEROL NEBULIZED 2.5 MG/3 ML INHALATION SCH ×2 (08:15→11:46)
[2019-05-22] MEDS: SYMBICORT 160-4.5 MCG INHALER INHALATION SCH (08:17)
--- NOTE | 2019-05-22 09:20 | P.DS ---
Providers Date of admission: 05/17/19 08:11 Attending physician: Germain Dowd Consults: 05/17/19 07:53 Consult Physician Urgent Consulting Provider: Mina Castillo Consult Reason/Comments: Dialysis Do you want consulting provider notified?: Yes 05/17/19 07:59 Consult Physician Urgent Consulting Provider: John Coffman Consult Reason/Comments: chf Do you want consulting provider notified?: Yes 05/19/19 00:52 Consult Physician Routine Consulting Provider: Nestor Guevara Consult Reason/Comments: Left lower lobe pneumonia Do you want consulting provider notified?: Yes, Notify in am 05/19/19 06:57 Consult Physician Urgent Consulting Provider: Whitney Hodges Consult Reason/Comments: Antibiotic on discharge Do you want consulting provider notified?: Yes Primary care physician: [facility] Course: Diagnoses: Shortness of breath secondary to fluid overload, currently completely resolved Bilateral dry gangrene of the toes and left lower extremity venous ulcer ESRD on hemodialysis Sunday and Sunday left upper extremity fistula Elevated troponin level likely due to volume overload. Patient is evaluated by director of litigation Uncontrolled hypertension, better controlled Acute on Chronic CHF with ejection fraction unknown Chronic bilateral lower extremity swelling due to venous stasis ulcers/ wounds. Peripheral vascular disease with bilateral toe dry gangrene. Vascular surgery recommends outpatient follow-up. Paroxysmal atrial fibrillation. 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 Chronic back pain Anxiety/depression Previous history of smoking GERD History of rheumatoid arthritis Hospital course: Patient is a 68-year-old male with a known history of ESRD on hemodialysis MWF- left upper extremity fistula, atrial fibrillation was not on anticoagulation, diabetes type 2 is elevated, diabetic retinopathy and chronic lower extremity wounds/venous stasis ulcers came to ER with complaints of low blood sugar, anxiety and shortness of breath. Patient says that he woke up in the morning and felt very anxious and his blood sugar was low between 80 and 90. He felt very anxious and short of breath. Patient does have exertional short of breath. Denied any complaints of chest pain. Patient says that he isn't having worsening leg swelling and bilateral lower extremity wounds. Patient has home healthcare and wound care at home. Patient admitted for bilateral dry toe gangrene and left leg venous ulcer, his been evaluated by surgeon Dr. Olvera and recommended conservative therapy and outpatient follow-up in 2-4 weeks, director of litigation place the patient on Eliquis due to his atrial fibrillation problem. Also presented with left pleural effusion patient was asymptomatic so tile inspector did not recommend thoracocentesis at this point. While infectious disease were following the case closely for antibiotic management. Eventually patient improved and back to his baseline, patient was eager to go home over the last 3 days, he remained clinically stable. Insulin was increased from 35-40 units due to sugar on the high side, about 300. Physical therapy recommended patient to return home Patient on the day of discharge denies chest pain or dyspnea, no abdominal pain, nausea vomiting, no change in urine or bowel habits. No fever Patient was cleared for discharge by all consultants including director of litigation, tile inspector, beater tender and infectious disease Problems and management plan were discussed with the patient and he verbalized understanding and acceptance Patient was found stable and can be discharged home however he needs follow-up as an outpatient. Patient was instructed to follow up with PCP within one week and patient agrees. Patient agrees with Dr. Wen appointment. He wasn't sure about Dr. Wolfe appointment and he states he will reschedule. No need for antibiotics upon discharge as per ID team. Patient agrees to increase his insulin 40 and states he usually takes up and he can do it Gen: patient is a AAOx3, no distress CVS: S1-S2, RRR, no murmur Lungs: B/L CTA, no wheezing Abdomen: soft, no distention, no tenderness, positive bowel sounds Extremity: no induration. Gangrene of the fourth and fifth toe on both feet. 2+ leg protruding edema Time spent: More than 35 minutes Patient Condition at Discharge: Fair Plan - Discharge Summary Discharge Rx Participant: No New Discharge Prescriptions: New ALPRAZolam [Xanax] 0.25 mg PO TID PRN 3 Days #9 tab PRN Reason: anxiety Apixaban [Eliquis] 2.5 mg PO BID #60 tablet Insulin Detemir (Levemir) [Levemir] 40 unit SQ HS #1 vial Continue NIFEdipine [NIFEdipine ER] 60 mg PO DAILY Etanercept [Enbrel] 50 mg SQ LUU Gemfibrozil [Lopid] 600 mg PO BID Aspirin EC [Ecotrin Low Dose] 81 mg PO DAILY Budesonide-Formot 160-4.5 Mcg [Symbicort 160-4.5 Mcg Inhaler] 2 puff INHALATION RT-BID Omeprazole 40 mg PO DAILY Metoprolol Tartrate [Lopressor] 50 mg PO BID Calcium Acetate [PhosLo] 1,334 mg PO TID-W/MEALS Magnebind 250/300mg 1 tab PO BID-W/MEALS Prorenal + D 1 tab PO DAILY Albuterol Nebulized [Ventolin Nebulized] 2.5 mg INHALATION RT-QID Furosemide [Lasix] 80 mg PO BID@0900,1600 tab Famotidine [Pepcid] 20 mg PO BID #30 tablet Discontinued Insulin Detemir (Levemir) [Levemir] 35 unit SQ HS syr Discharge Medication List Etanercept [Enbrel] 50 mg SQ LUU 06/12/14 [History] NIFEdipine [NIFEdipine ER] 60 mg PO DAILY 06/12/14 [History] Aspirin EC [Ecotrin Low Dose] 81 mg PO DAILY 07/31/18 [History] Gemfibrozil [Lopid] 600 mg PO BID 07/31/18 [History] Budesonide-Formot 160-4.5 Mcg [Symbicort 160-4.5 Mcg Inhaler] 2 puff INHALATION RT-BID 02/26/19 [History] Calcium Acetate [PhosLo] 1,334 mg PO TID-W/MEALS 02/26/19 [History] Magnebind 250/300mg 1 tab PO BID-W/MEALS 02/26/19 [History] Metoprolol Tartrate [Lopressor] 50 mg PO BID 02/26/19 [History] Omeprazole 40 mg PO DAILY 02/26/19 [History] Prorenal + D 1 tab PO DAILY 02/26/19 [History] Albuterol Nebulized [Ventolin Nebulized] 2.5 mg INHALATION RT-QID 03/17/19 [History] Famotidine [Pepcid] 20 mg PO BID #30 tablet 03/20/19 [Rx] Furosemide [Lasix] 80 mg PO BID@0900,1600 tab 03/20/19 [Rx] ALPRAZolam [Xanax] 0.25 mg PO TID PRN 3 Days #9 tab 05/17/19 [Rx] Apixaban [Eliquis] 2.5 mg PO BID #60 tablet 05/19/19 [Rx] Insulin Detemir (Levemir) [Levemir] 40 unit SQ HS #1 vial 05/22/19 [Rx] Follow up Appointment(s)/Referral(s): Nell Rosen MD [Primary Care Provider] - 05/27/19 3:45 pm Troy Olvera DO [STAFF PHYSICIAN] - 06/10/19 1:30 pm [facility] [NON-STAFF] - 1 Week Activity/Diet/Wound Care/Special Instructions: Please return to the Emergency Department if symptoms worsen or any other concerns. Cardiac diet Activity is limited till you see your doctor Discharge Disposition: HOME SELF-CARE
--- NOTE | 2019-05-22 13:54 | P.PN ---
Progress Note - Text Progress Note Date: 05/22/19 REASON FOR FOLLOWUP: 1. Abnormal chest x-ray left sided pleural effusion. 2. The patient with right big toe and left 5th toe wound. INTERVAL HISTORY: The patient remains to be afebrile, the patient is breathing comfortably. The patient denies having any chest pain or cough. No nausea, vomiting, abdominal pain or pain to the toe. PHYSICAL EXAMINATION: His blood pressure 132/69 with a pulse of 63 Temperature is 97.4. He is 97% on room air. General description is an elderly male up in the chair in no distress. Respiratory system: Unlabored breathing. Decreased breath sounds at the bases. No wheeze. Heart S1, S2. Regular rate and rhythm. Abdomen soft, no tenderness. The right big toe and left fifth toe dressed up no drainage on the dressing LABS: Reviewed. DIAGNOSTIC IMPRESSION AND PLAN: 1. Patient abnormal chest x-ray more likely chronic effusion. Clinically not behaving as pneumonia and is currently off antibiotic therapy and the patient has shown clinical improvement rather than any worsening has recommend no antibiotic on discharge 2. Patient with right big toe and fifth toe no open wound and no cellulitis. No need for local wound care. Continue with Tubigrip for the lower extremity swelling.
[2019-05-22 14:22] VITALS: BP 146/73; PULSE 65; TEMP 98.2
[2019-05-22] MEDS ORDERED: INSULIN DETEMIR (LEVEMIR) 100 UNIT/ML SYR SQ SCH (21:00)
--- NOTE | 2019-05-29 15:39 | P.PN ---
Subjective This is Danii Mcdermott PA-C dictating a progress note on this patient Case discussed with Dr. Kaufman and he agrees with the plan of care HPI/interval history Patient is a 68-year-old male with a history of hypertension, atrial fibrillation, end-stage renal disease on dialysis, diabetes, chronic lower extremity wounds who presented with complaints of low blood sugar, shortness of breath and lower extremity wounds. He was admitted for further evaluation and treatment. Infectious disease has started him on IV antibiotics. Pulmonology is considering thoracentesis. Patient seen and examined sitting in the chair. States his breathing has improved somewhat. No chest pain or dizziness. EXAMINATION Patient is afebrile, pulse in the 70s, respirations 16, blood pressure 155/71, oxygen saturation 99% on room air Patient seen and examined sitting up in the chair, no acute distress Lungs are diminished bilaterally Heart is irregular, no audible murmurs Moderate lower extremity edema bilaterally, stockings in place REVIEW OF LABS, ECG WBC 6.1, hemoglobin 12.0, platelets 120, potassium 5.3, BUN 66, creatinine 6.06 Echocardiogram showed EF 40-45% IMPRESSION / ASSESSMENT: Shortness of breath secondary to volume overload, improving Atrial fibrillation, rate controlled, anticoagulated with eliquis ESRD on dialysis Mild troponin elevation secondary to above Cardiomyopathy, etiology unknown, EF 40-45% Diabetes Hypertension Chronic lower extremity wounds, being treated with antibiotic PLAN: Continue medical management with beta blockers, antihypertensive therapy Continue anticoagulation with eliquis Cannot start Lg inhibitors or spironolactone due to renal function Objective - Vital Signs Vital signs: Vital Signs Temp 98.6 F 05/20/19 12:41 Pulse 74 05/20/19 15:45 Resp 16 05/20/19 12:41 BP 155/71 05/20/19 12:41 Pulse Ox 99 05/20/19 12:41 Intake & Output 05/19/19 05/20/19 05/20/19 18:59 06:59 18:59 Intake Total 500 300 Output Total 2800 Balance 500 -2500 Weight 121.1 kg 122.3 kg Intake: IV 500 Vancomycin 2,000 mg In 500 Sodium Chloride 0.9% 500 ml 500 ml @ 167 mls/hr IVPB ONCE ONE Rx#: [id number] Hemodialysis 300 Output: Hemodialysis 2800 Other: Voiding Method Toilet Toilet Urinal Urinal # Voids 0 2 1 # Bowel Movements 1 - Labs CBC & Chem 7: 05/19/19 07:54 05/19/19 07:54 Labs: Abnormal Lab Results - Last 24 Hours (Table) 05/19/19 05/19/19 Range/Units 17:06 20:53 POC Glucose (mg/dL) 298 H 245 H (75-99) mg/dL Microbiology - Last 24 Hours (Table) 05/17/19 08:19 Blood Culture - Preliminary Blood No Growth after 72 hours
== END 2019-05-22 13:32 | disposition home or self-care (01) | DRG 291 ==
LOC: EC 05:42 → 3SCARD 08:11 → 6NMEDSUR 05-18 22:42
PROVIDERS: ADMIT Hospitalist; ATTEND Hospitalist
PROC: 5A1D70Z Performance of Urinary Filtration, Intermittent, Less than 6 Hours Per Day (ICD-10-PCS; principal; 2019-05-17)
DX: I13.2 Hypertensive heart and chronic kidney disease with heart failure and with stage 5 chronic kidney disease, or end stage renal disease (principal); I50.23 Acute on chronic systolic (congestive) heart failure; N18.6 End stage renal disease; J96.11 Chronic respiratory failure with hypoxia; I70.263 Atherosclerosis of native arteries of extremities with gangrene, bilateral legs; L97.911 Non-pressure chronic ulcer of unspecified part of right lower leg limited to breakdown of skin; E11.52 Type 2 diabetes mellitus with diabetic peripheral angiopathy with gangrene; L97.922 Non-pressure chronic ulcer of unspecified part of left lower leg with fat layer exposed; L03.116 Cellulitis of left lower limb; L03.115 Cellulitis of right lower limb; L97.912 Non-pressure chronic ulcer of unspecified part of right lower leg with fat layer exposed; I27.29 Other secondary pulmonary hypertension; D63.1 Anemia in chronic kidney disease; E11.319 Type 2 diabetes mellitus with unspecified diabetic retinopathy without macular edema; E83.9 Disorder of mineral metabolism, unspecified; L97.522 Non-pressure chronic ulcer of other part of left foot with fat layer exposed; L97.529 Non-pressure chronic ulcer of other part of left foot with unspecified severity; I83.009 Varicose veins of unspecified lower extremity with ulcer of unspecified site; E11.42 Type 2 diabetes mellitus with diabetic polyneuropathy; E11.621 Type 2 diabetes mellitus with foot ulcer; E11.22 Type 2 diabetes mellitus with diabetic chronic kidney disease; R79.89 Other specified abnormal findings of blood chemistry; I48.0 Paroxysmal atrial fibrillation; E66.9 Obesity, unspecified; G89.29 Other chronic pain; F32.9 Major depressive disorder, single episode, unspecified; M54.9 Dorsalgia, unspecified; M06.9 Rheumatoid arthritis, unspecified; K21.9 Gastro-esophageal reflux disease without esophagitis; G40.909 Epilepsy, unspecified, not intractable, without status epilepticus; J44.9 Chronic obstructive pulmonary disease, unspecified; M19.90 Unspecified osteoarthritis, unspecified site; H54.8 Legal blindness, as defined in USA; F41.1 Generalized anxiety disorder; E78.5 Hyperlipidemia, unspecified; Z68.33 Body mass index [BMI] 33.0-33.9, adult; Z79.82 Long term (current) use of aspirin; Z79.899 Other long term (current) drug therapy; Z79.51 Long term (current) use of inhaled steroids; Z79.4 Long term (current) use of insulin; Z86.19 Personal history of other infectious and parasitic diseases; Z87.891 Personal history of nicotine dependence; Z99.2 Dependence on renal dialysis; Z98.42 Cataract extraction status, left eye; Z98.41 Cataract extraction status, right eye; Z86.010 Personal history of colon polyps; Z98.890 Other specified postprocedural states; Z95.828 Presence of other vascular implants and grafts; Z87.01 Personal history of pneumonia (recurrent); Z86.79 Personal history of other diseases of the circulatory system; Z99.81 Dependence on supplemental oxygen; Z88.2 Allergy status to sulfonamides; Z83.3 Family history of diabetes mellitus; Z80.9 Family history of malignant neoplasm, unspecified
CPT/HCPCS: 36415; 71045; 71046; 80048; 80053; 80202; 83735; 83880; 84145; 84484; 85025; 85610; 85730; 87040; 90935; 93005; 93306; 94640; 94760; 96365; 96366; 96368; 96375; 96376; 99285

== ENCOUNTER 2019-05-23 18:58 | Emergency (ER) | payer MEDICARE ==
[2019-05-23 19:07] VITALS: RESP 18; TEMP 97.9
--- NOTE | 2019-05-23 20:00 | ED ---
Wound/Laceration HPI - General Chief Complaint: Wound/Laceration Stated Complaint: Blisters on feet/leg Time Seen by Provider: 05/23/19 19:17 Source: patient Mode of arrival: ambulatory Limitations: no limitations - History of Present Illness Initial Comments: Patient is a 68-year-old male presenting to emergency Department after he was sent in from his dialysis with concerns over his wounds. Patient was recently discharged yesterday after a 6 day stay for chronic wounds, CKD. 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 Patient states he went into dialysis today and they said that he should go back into the ER. Patient and are poor historians and they are not sure why they were sent back in. Patient denies any fever, chills, shortness of breath, chest pain. He states no changes since he was discharged yesterday. Patient was able to complete his dialysis today. There are no other complaints at this time. Upon arrival to the ER his vitals are stable. - Related Data Home Medications Medication Instructions Recorded Confirmed Etanercept [Enbrel] 50 mg SQ LUU 06/12/14 05/17/19 NIFEdipine [NIFEdipine ER] 60 mg PO DAILY 06/12/14 05/17/19 Aspirin EC [Ecotrin Low Dose] 81 mg PO DAILY 07/31/18 05/17/19 Gemfibrozil [Lopid] 600 mg PO BID 07/31/18 05/17/19 Budesonide-Formot 160-4.5 Mcg 2 puff INHALATION RT-BID 02/26/19 05/17/19 [Symbicort 160-4.5 Mcg Inhaler] Calcium Acetate [PhosLo] 1,334 mg PO TID-W/MEALS 02/26/19 05/17/19 Magnebind 250/300mg 1 tab PO BID-W/MEALS 02/26/19 05/17/19 Metoprolol Tartrate [Lopressor] 50 mg PO BID 02/26/19 05/17/19 Omeprazole 40 mg PO DAILY 02/26/19 05/17/19 Prorenal + D 1 tab PO DAILY 02/26/19 05/17/19 Albuterol Nebulized [Ventolin 2.5 mg INHALATION RT-QID 03/17/19 05/17/19 Nebulized] Previous Rx's Medication Instructions Recorded Famotidine [Pepcid] 20 mg PO BID #30 tablet 03/20/19 Furosemide [Lasix] 80 mg PO BID@0900,1600 tab 03/20/19 ALPRAZolam [Xanax] 0.25 mg PO TID PRN 3 Days #9 tab 05/17/19 Apixaban [Eliquis] 2.5 mg PO BID #60 tablet 05/19/19 Insulin Detemir (Levemir) [Levemir] 40 unit SQ HS #1 vial 05/22/19 Allergies Allergy/AdvReac Type Severity Reaction Status Date / Time sulfamethoxazole AdvReac Unknown Nausea & Verified 05/23/19 19:02 [From Bactrim] Vomiting trimethoprim [From Bactrim] AdvReac Unknown Nausea & Verified 05/23/19 19:02 Vomiting Review of Systems ROS Statement: Those systems with pertinent positive or pertinent negative responses have been documented in the HPI. ROS Other: All systems not noted in ROS Statement are negative. Past Medical History Past Medical History: Atrial Fibrillation, Asthma, Heart Failure, Diabetes Mellitus, Dialysis, Eye Disorder, GERD/Reflux, Hypertension, Osteoarthritis (OA), Pneumonia, Renal Disease, Rheumatoid Arthritis (RA), Seizure Disorder Additional Past Medical History / Comment(s): ESRD with hemodialysis, mineral bone disease, chronic anemia, IDDM type II, diabetic retinopathy-"legally blind", chronic neuropathy occasionally in toes bilateral feet and left leg, bilateral lower leg edema, cellulitis bilateral lower legs, past leg/foot wounds and currently has left medial leg wounds that have scabbed over and no longer goes to [facility], paroxysmal Afib, 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 History of Any Multi-Drug Resistant Organisms: None Reported Past Surgical History: Hernia Repair, Orthopedic Surgery Additional Past Surgical History / Comment(s): Bilateral cataract surgery, insertion dialysis catheter left arm then had a procedure done to dialysis catheter at [facility]-cannot recall exactly what was done, PICC line insertion/removed, bilateral inguinal hernina repairs, colonoscopy/polypectomy, R shoulder rotator cuff repair, debridements bilateral feet. Past Anesthesia/Blood Transfusion Reactions: No Reported Reaction Additional Past Anesthesia/Blood Transfusion Reaction / Comment(s): Pt received blood in past without reaction. Past Psychological History: Anxiety, Depression Smoking Status: Former smoker Past Alcohol Use History: None Reported Past Drug Use History: None Reported - Past Family History Mother Family Medical History: Diabetes Mellitus Father Family Medical History: Cancer Additional Family Medical History / Comment(s): Metastatic cancer. Pt cannot recall primary. General Exam - General Exam Comments Initial Comments: GENERAL: Well-appearing, well-nourished and in no acute distress. HEAD: Atraumatic, normocephalic. EYES: Pupils equal round and reactive to light, extraocular movements intact, sclera anicteric, conjunctiva are normal. ENT: TMs normal, nares patent, oropharynx clear without exudates. Moist mucous membranes. NECK: Normal range of motion, supple without lymphadenopathy or JVD. LUNGS: Breath sounds clear to auscultation bilaterally and equal. No wheezes rales or rhonchi. HEART: Regular rate and rhythm without murmurs, rubs or gallops. ABDOMEN: Soft, nontender, normoactive bowel sounds. No guarding, no rebound. No masses appreciated. : Deferred EXTREMITIES: Patient's bilateral lower legs consistent with venous insufficiency, multiple superficial chronic wounds. No signs of cellulitis. Patient is neurovascular intact. Bilateral dorsal pedis pulses are equal. NEUROLOGICAL: Normal speech, normal gait. PSYCH: Normal mood, normal affect. SKIN: Warm, Dry, normal turgor. Multiple superficial chronic wounds, chronic ulcer on the right large toe and underneath right fifth digit, as well as a superficial wound on the posterior left calf. No signs cellulitis. Limitations: no limitations Course Vital Signs 05/23/19 05/23/19 19:04 20:29 Temperature 97.9 F Pulse Rate 80 79 Respiratory 18 18 Rate Blood Pressure 169/94 143/77 O2 Sat by Pulse 97 95 Oximetry Medical Decision Making - Medical Decision Making Patient is a 68-year-old male here sent in from dialysis. Patient was recently discharged yesterday after a week and the hospital secondary to chronic wounds and CKD. Patient was able to complete his dialysis today. He denies having fever or any changes since he was discharged yesterday. He denies fever. His vitals are stable. I discussed with patient that he is stable for be discharged. I discussed in detail with the patient and his about his follow-up appointments that are already arranged from his discharged yesterday. I reprinted his discharge paperwork from yesterday so they have this information. Patient will continue with these follow-ups. He is stable for discharge today. Patient's lower legs were redressed. Return parameters were discussed with the patient and his and they both verbalized understanding. Case discussed with Dr. daniels. Disposition Clinical Impression: Diabetic foot ulcer associated with type 2 diabetes mellitus Disposition: HOME SELF-CARE Condition: Stable Instructions (If sedation given, give patient instructions): Diabetic Foot Ulcers (ED) Additional Instructions: Please return to the Emergency Department if symptoms worsen or any other concerns. Follow-up with your doctors as already scheduled. Is patient prescribed a controlled substance at d/c from ED?: No Referrals: Nell Rosen MD [Primary Care Provider] - 1-2 days
[2019-05-23 20:35] VITALS: BP 143/77; PULSE 79
== END 2019-05-23 20:35 | disposition home or self-care (01) ==
LOC: EC 18:58
DX: E11.621 Type 2 diabetes mellitus with foot ulcer (principal); L97.429 Non-pressure chronic ulcer of left heel and midfoot with unspecified severity; L97.419 Non-pressure chronic ulcer of right heel and midfoot with unspecified severity; S80.922A Unspecified superficial injury of left lower leg, initial encounter; L97.229 Non-pressure chronic ulcer of left calf with unspecified severity; L97.219 Non-pressure chronic ulcer of right calf with unspecified severity; E11.22 Type 2 diabetes mellitus with diabetic chronic kidney disease; J45.909 Unspecified asthma, uncomplicated; I13.2 Hypertensive heart and chronic kidney disease with heart failure and with stage 5 chronic kidney disease, or end stage renal disease; I50.9 Heart failure, unspecified; N18.6 End stage renal disease; K21.9 Gastro-esophageal reflux disease without esophagitis; M19.90 Unspecified osteoarthritis, unspecified site; M06.9 Rheumatoid arthritis, unspecified; D63.1 Anemia in chronic kidney disease; H54.8 Legal blindness, as defined in USA; Z87.891 Personal history of nicotine dependence; Z88.2 Allergy status to sulfonamides; Z79.51 Long term (current) use of inhaled steroids; Z79.82 Long term (current) use of aspirin; Z79.899 Other long term (current) drug therapy; Z98.890 Other specified postprocedural states; Z99.2 Dependence on renal dialysis; Z83.3 Family history of diabetes mellitus; X58.XXXA Exposure to other specified factors, initial encounter
CPT/HCPCS: 99282

== ENCOUNTER → 2019-06-12 | Outpatient (CLI) | payer MEDICARE ==
--- NOTE | 2019-06-12 14:31 | US ---
LOWER EXTREMITY VENOUS INSUFFICIENCY CLINICAL HISTORY: E11.621 TYPE 2 DIABETES MELLITUS W/FOOT ULCER. SIDE PERFORMED: Bilateral 1) Color flow is present and patency is documented in the following vessels. No DVT or SVT is noted . EIV Common Femoral Vein Deep Femoral Vein Femoral Vein Popliteal Vein Proximal Calf Veins Greater Saph Vein Upper Small Saph Vein Patient refused to remove his pants, was able to push them up past his knees: only scanned bilatera l popliteal and small saph veins. 2) There is venous reflux noted at the following venous levels: none IMPRESSION: Only the bilateral popliteal and small saphenous veins were imaged as the patient refused to remove clothing of the remainder of the lower extremities. No evidence of deep venous thrombosis, superficial venous thrombosis or venous reflux in the bilateral popliteal or small saphenous veins.
--- NOTE | 2019-06-18 14:41 | P.ARTDOP ---
Arterial Doppler LOWER EXTREMITY ARTERIAL DOPPLER: DATE OF SERVICE: 06/12/2019 Reason for study: Bilateral leg ulcers. Doppler waveforms: Multiphasic bilaterally. Digital waveforms are mildly blunted. Pulse volume recording: []. Pressure gradients: Only recorded at the foot level. Ankle-brachial indices: Cannot occlude. Toe brachial indices: 0.52 on the right, 0.66 on the left Impression: Suggests mild bilateral disease. Toe pressures probably adequate for healing. Clinical correlation recommended..
== END | disposition home or self-care (01) ==
LOC: RADUSWWP 12:58
PROVIDERS: ATTEND Family Medicine
DX: E11.21 Type 2 diabetes mellitus with diabetic nephropathy (principal); I87.2 Venous insufficiency (chronic) (peripheral); E11.22 Type 2 diabetes mellitus with diabetic chronic kidney disease; N18.6 End stage renal disease; E11.622 Type 2 diabetes mellitus with other skin ulcer; I48.0 Paroxysmal atrial fibrillation; M05.59 Rheumatoid polyneuropathy with rheumatoid arthritis of multiple sites; Z99.2 Dependence on renal dialysis
CPT/HCPCS: 93922; 93970

== ENCOUNTER 2019-06-16 11:26 | Inpatient (IN) | payer MEDICARE ==
[2019-06-16 12:33] LABS: Anisocytosis Slight; Basophils % (A) 1 %; Eosinophils # (A) 0.3 k/uL (0-0.7); Eosinophils % (A) 5 %; HCT 34.9 % (39.0-53.0); HGB 10.8 gm/dL (13.0-17.5); Hypochromasia Slight; Lymphocytes # (A) 0.7 k/uL (1.0-4.8); Lymphocytes % (A) 10 %; MCH 32.2 pg (25.0-35.0); MCHC 30.8 g/dL (31.0-37.0); MCV 104.6 fL (80.0-100.0); Macrocytosis Moderate; Monocytes # (A) 0.4 k/uL (0-1.0); Monocytes % (A) 5 %; Neutrophils # (A) 5.4 k/uL (1.3-7.7); Neutrophils % (A) 78 %; Platelet Count 116 k/uL (150-450); RBC 3.34 m/uL (4.30-5.90); RDW 17.1 % (11.5-15.5); WBC 6.9 k/uL (3.8-10.6)
--- NOTE | 2019-06-16 12:41 | XR ---
EXAMINATION TYPE: XR chest 2V DATE OF EXAM: 06/16/2019 COMPARISON: 05/20/2019 HISTORY: Shortness of breath and difficulty breathing TECHNIQUE: Frontal and lateral views of the chest are obtained. FINDINGS: There is a moderate left pleural effusion and associated left basilar airspace disease sli ghtly increased from the prior. Mild background pulmonary vascular congestion. Cardia mediastinal ruth houette is partially obscured but similar to the prior. No acute osseous pathology seen. No sizable p neumothorax. Minimal degenerative change of the spine. IMPRESSION: Moderate, slightly increasing, left pleural effusion with associated airspace disease, l ikely compressive atelectasis. Mild pulmonary vascular congestion.
[2019-06-16 12:44] LABS: INR 1.1 (<1.2); Partial Thromboplastin Time 22.8 sec (22.0-30.0)
[2019-06-16 12:45] LABS: Albumin 3.9 g/dL (3.5-5.0); Calcium 9.3 mg/dL (8.4-10.2); Magnesium 1.9 mg/dL (1.6-2.3); Potassium 4.6 mmol/L (3.5-5.1); Total Bilirubin 0.8 mg/dL (0.2-1.3); Total Protein 7.6 g/dL (6.3-8.2)
--- NOTE | 2019-06-16 13:00 | ED ---
SOB HPI - General Source: patient, RN notes reviewed Mode of arrival: ambulatory Limitations: no limitations <Ming Gonsales - Last Filed: 06/16/19 13:56> <Nestor Hastings - Last Filed: 06/16/19 14:03> - General Chief Complaint: Shortness of Breath Stated Complaint: SOB/blisters on legs Time Seen by Provider: 06/16/19 11:47 - History of Present Illness Initial Comments: 69-year-old male presents emergency from chief complaint of shortness breath. Patient's been having increasing orthopnea, dyspnea. Patient states that he can not even leaning back displaced both of feeling increasing short of breath. He said increasing leg swelling is currently being treated by the wound center for blistering of his legs which is now worsening has been. He does state that legs are more swollen and had a recent ultrasound which is negative for DVT. Patient denies any current chest pain denies fevers chills he is currently on antibiotics every other day for his legs. Patient does do hemodialysis on Sunday, Sunday and Sunday. (Ming Gonsales) - Related Data Home Medications Medication Instructions Recorded Confirmed Etanercept [Enbrel] 50 mg SQ LUU 06/12/14 05/17/19 NIFEdipine [NIFEdipine ER] 60 mg PO DAILY 06/12/14 05/17/19 Aspirin EC [Ecotrin Low Dose] 81 mg PO DAILY 07/31/18 05/17/19 Gemfibrozil [Lopid] 600 mg PO BID 07/31/18 05/17/19 Budesonide-Formot 160-4.5 Mcg 2 puff INHALATION RT-BID 02/26/19 05/17/19 [Symbicort 160-4.5 Mcg Inhaler] Calcium Acetate [PhosLo] 1,334 mg PO TID-W/MEALS 02/26/19 05/17/19 Magnebind 250/300mg 1 tab PO BID-W/MEALS 02/26/19 05/17/19 Metoprolol Tartrate [Lopressor] 50 mg PO BID 02/26/19 05/17/19 Omeprazole 40 mg PO DAILY 02/26/19 05/17/19 Prorenal + D 1 tab PO DAILY 02/26/19 05/17/19 Albuterol Nebulized [Ventolin 2.5 mg INHALATION RT-QID 03/17/19 05/17/19 Nebulized] Previous Rx's Medication Instructions Recorded Famotidine [Pepcid] 20 mg PO BID #30 tablet 03/20/19 Furosemide [Lasix] 80 mg PO BID@0900,1600 tab 03/20/19 ALPRAZolam [Xanax] 0.25 mg PO TID PRN 3 Days #9 tab 05/17/19 Apixaban [Eliquis] 2.5 mg PO BID #60 tablet 05/19/19 Insulin Detemir (Levemir) [Levemir] 40 unit SQ HS #1 vial 05/22/19 Allergies Allergy/AdvReac Type Severity Reaction Status Date / Time sulfamethoxazole AdvReac Unknown Nausea & Verified 06/16/19 11:28 [From Bactrim] Vomiting trimethoprim [From Bactrim] AdvReac Unknown Nausea & Verified 06/16/19 11:28 Vomiting Review of Systems ROS Other: All systems not noted in ROS Statement are negative. <Ming Gonsales - Last Filed: 06/16/19 13:56> ROS Other: All systems not noted in ROS Statement are negative. <Nestor Hastings - Last Filed: 06/16/19 14:03> ROS Statement: Those systems with pertinent positive or pertinent negative responses have been documented in the HPI. Past Medical History Past Medical History: Atrial Fibrillation, Asthma, Heart Failure, Diabetes Mellitus, Dialysis, Eye Disorder, GERD/Reflux, Hypertension, Osteoarthritis (OA), Pneumonia, Renal Disease, Rheumatoid Arthritis (RA), Seizure Disorder Additional Past Medical History / Comment(s): ESRD with hemodialysis, mineral bone disease, chronic anemia, IDDM type II, diabetic retinopathy-"legally bli nd", chronic neuropathy occasionally in toes bilateral feet and left leg, bilateral lower leg edema, cellulitis bilateral lower legs, past leg/foot wounds and currently has left medial leg wounds that have scabbed over and no longer goes to [facility], paroxysmal Afib, 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 History of Any Multi-Drug Resistant Organisms: None Reported Past Surgical History: Hernia Repair, Orthopedic Surgery Additional Past Surgical History / Comment(s): Bilateral cataract surgery, insertion dialysis catheter left arm then had a procedure done to dialysis catheter at [facility]-cannot recall exactly what was done, PICC line insertion/removed, bilateral inguinal hernina repairs, colonoscopy/polypectomy, R shoulder rotator cuff repair, debridements bilateral feet. Past Anesthesia/Blood Transfusion Reactions: No Reported Reaction Additional Past Anesthesia/Blood Transfusion Reaction / Comment(s): Pt received blood in past without reaction. Past Psychological History: Anxiety, Depression Smoking Status: Former smoker Past Alcohol Use History: None Reported Past Drug Use History: None Reported - Past Family History Mother Family Medical History: Diabetes Mellitus Father Family Medical History: Cancer Additional Family Medical History / Comment(s): Metastatic cancer. Pt cannot recall primary. <Ming Gonsales - Last Filed: 06/16/19 13:56> General Exam Limitations: no limitations General appearance: alert, in no apparent distress Head exam: Present: atraumatic, normocephalic, normal inspection Eye exam: Present: normal appearance, PERRL, EOMI. Absent: scleral icterus, conjunctival injection, periorbital swelling Neck exam: Present: normal inspection, full ROM. Absent: tenderness, meningismus, lymphadenopathy Respiratory exam: Present: decreased breath sounds. Absent: normal lung sounds bilaterally, respiratory distress, wheezes, rales, rhonchi, stridor Cardiovascular Exam: Present: regular rate, normal rhythm, normal heart sounds. Absent: systolic murmur, diastolic murmur, rubs, gallop, clicks GI/Abdominal exam: Present: soft, normal bowel sounds. Absent: distended, tenderness, guarding, rebound, rigid Extremities exam: Present: pedal edema. Absent: normal inspection (Scaling, there are some open wounds noted on the lower extremities that are weeping, neurovascular intact) Neurological exam: Present: alert, oriented X3 Skin exam: Present: warm <Ming Gonsales - Last Filed: 06/16/19 13:56> Course <Nestor Hastings - Last Filed: 06/16/19 14:03> Vital Signs 06/16/19 11:28 Temperature 97.4 F L Pulse Rate 68 Respiratory 24 Rate Blood Pressure 153/76 O2 Sat by Pulse 96 Oximetry - Reevaluation(s) Reevaluation #1: 06/16/19 14:02 PA supervision: I proceeded [id number] evaluation the patient. He did present with complaints of shortness of breath also complains of drainage and weeping from his legs. He does demonstrate evidence of volume overload with a markedly elevated BNP left pleural effusion and diminished breath sounds on the left due to the pleural effusion. He does have evidence of +3 pedal edema with stasis dermatitis and weeping. I did discuss case with Dr. Horton the patient be admit obi for inpatient treatment. (Nestor Hastings) Medical Decision Making - Lab Data Result diagrams: 06/16/19 12:20 06/16/19 12:20 - EKG Data -: EKG Interpreted by Me <Ming Gonsales - Last Filed: 06/16/19 13:56> - Lab Data Result diagrams: 06/16/19 12:20 06/16/19 12:20 <Nestor Hastings - Last Filed: 06/16/19 14:03> - Medical Decision Making Patient will be admitted to telemetry to Dr horton. Patient went to have acute CHF, left pleural effusion and needing dialysis. (Ming Gonsales) - Lab Data Lab Results 06/16/19 06/16/19 06/16/19 Range/Units 12:20 12:20 12:20 WBC 6.9 (3.8-10.6) k/uL RBC 3.34 L (4.30-5.90) m/uL Hgb 10.8 L (13.0-17.5) gm/dL Hct 34.9 L (39.0-53.0) % MCV 104.6 H (80.0-100.0) fL MCH 32.2 (25.0-35.0) pg MCHC 30.8 L (31.0-37.0) g/dL RDW 17.1 H (11.5-15.5) % Plt Count 116 L (150-450) k/uL Neutrophils % 78 % Lymphocytes % 10 % Monocytes % 5 % Eosinophils % 5 % Basophils % 1 % Neutrophils # 5.4 (1.3-7.7) k/uL Lymphocytes # 0.7 L (1.0-4.8) k/uL Monocytes # 0.4 (0-1.0) k/uL Eosinophils # 0.3 (0-0.7) k/uL Basophils # 0.0 (0-0.2) k/uL Hypochromasia Slight Anisocytosis Slight Macrocytosis Moderate PT 11.0 (9.0-12.0) sec INR 1.1 (<1.2) APTT 22.8 (22.0-30.0) sec Sodium 139 (137-145) mmol/L Potassium 4.6 (3.5-5.1) mmol/L Chloride 98 (98-107) mmol/L Carbon Dioxide 23 (22-30) mmol/L Anion Gap 18 mmol/L BUN 65 H (9-20) mg/dL Creatinine 6.39 H (0.66-1.25) mg/dL Est GFR (CKD-EPI)AfAm 9 (>60 ml/min/1.73 sqM) Est GFR (CKD-EPI)NonAf 8 (>60 ml/min/1.73 sqM) Glucose 323 H (74-99) mg/dL Plasma Lactic Acid John (0.7-2.0) mmol/L Calcium 9.3 (8.4-10.2) mg/dL Magnesium 1.9 (1.6-2.3) mg/dL Total Bilirubin 0.8 (0.2-1.3) mg/dL AST 24 (17-59) U/L ALT 16 (4-49) U/L Alkaline Phosphatase 120 (38-126) U/L Troponin I (0.000-0.034) ng/mL NT-Pro-B Natriuret Pep pg/mL Total Protein 7.6 (6.3-8.2) g/dL Albumin 3.9 (3.5-5.0) g/dL 06/16/19 06/16/19 06/16/19 Range/Units 12:20 12:20 12:20 WBC (3.8-10.6) k/uL RBC (4.30-5.90) m/uL Hgb (13.0-17.5) gm/dL Hct (39.0-53.0) % MCV (80.0-100.0) fL MCH (25.0-35.0) pg MCHC (31.0-37.0) g/dL RDW (11.5-15.5) % Plt Count (150-450) k/uL Neutrophils % % Lymphocytes % % Monocytes % % Eosinophils % % Basophils % % Neutrophils # (1.3-7.7) k/uL Lymphocytes # (1.0-4.8) k/uL Monocytes # (0-1.0) k/uL Eosinophils # (0-0.7) k/uL Basophils # (0-0.2) k/uL Hypochromasia Anisocytosis Macrocytosis PT (9.0-12.0) sec INR (<1.2) APTT (22.0-30.0) sec Sodium (137-145) mmol/L Potassium (3.5-5.1) mmol/L Chloride (98-107) mmol/L Carbon Dioxide (22-30) mmol/L Anion Gap mmol/L BUN (9-20) mg/dL Creatinine (0.66-1.25) mg/dL Est GFR (CKD-EPI)AfAm (>60 ml/min/1.73 sqM) Est GFR (CKD-EPI)NonAf (>60 ml/min/1.73 sqM) Glucose (74-99) mg/dL Plasma Lactic Acid John 1.5 (0.7-2.0) mmol/L Calcium (8.4-10.2) mg/dL Magnesium (1.6-2.3) mg/dL Total Bilirubin (0.2-1.3) mg/dL AST (17-59) U/L ALT (4-49) U/L Alkaline Phosphatase (38-126) U/L Troponin I 0.025 (0.000-0.034) ng/mL NT-Pro-B Natriuret Pep 53821 pg/mL Total Protein (6.3-8.2) g/dL Albumin (3.5-5.0) g/dL - EKG Data EKG Comments: EKG performed at 12:47 A. fib rate of 69 QRS 116 QT/QTC 434/465 (Ming Gonsales) Critical Care Time Critical Care Time: Yes Total Critical Care Time: 35 <Ming Gonsales - Last Filed: 06/16/19 13:56> Critical Care Time: Total 35 minutes of critical care time were used initial presentation, past medical history in order labs and imaging. Patient's found to be in acute CHF exacerbation with increased dyspnea, left pleural effusion. Patient we given [place] six will be admitted for dialysis, evaluation by pulmonology for possible thoracentesis. Patient was admitted to telemetry for close monitoring. (Ming Gonsales) Disposition <Ming Gonsales - Last Filed: 06/16/19 13:56> <Nestor Hastings - Last Filed: 06/16/19 14:03> Clinical Impression: CHF exacerbation, Pleural effusion, left, Dyspnea, Renal failure Disposition: ADMITTED IP TO THIS HOSP Condition: Fair Referrals: Nell Rosen MD [Primary Care Provider] - 1-2 days
[2019-06-16] MEDS ORDERED: FUROSEMIDE 10 MG/ML 4 ML VIAL IV SCH ×2 (14:00→21:00)
[2019-06-16] MEDS ORDERED: FUROSEMIDE 10 MG/ML 4 ML VIAL IV STA (14:01)
[2019-06-16] MEDS ORDERED: ALPRAZolam 0.25 MG TAB PO PRN (17:08)
[2019-06-16 17:20] LABS: Glucose,Whole Blood 323 mg/dL (75-99)
[2019-06-16] MEDS ORDERED: HYDROcodone/APAP 5-325MG 1 EACH TAB PO PRN (18:37)
[2019-06-16] MEDS ORDERED: ACETAMINOPHEN TAB 500 MG TAB PO PRN (18:37)
[2019-06-16] MEDS ORDERED: HYDROmorphone 0.5 MG/0.5 ML SYRINGE IVP PRN (18:37)
[2019-06-16] MEDS: SYMBICORT 160-4.5 MCG INHALER INHALATION SCH (19:50)
[2019-06-16] MEDS: ALBUTEROL NEBULIZED 2.5 MG/3 ML INHALATION SCH (19:50)
[2019-06-16 20:34] LABS: Glucose,Whole Blood 226 mg/dL (75-99)
--- NOTE | 2019-06-16 20:49 | HP ---
HISTORY AND PHYSICAL DATE OF SERVICE: 06/16/2019 CHIEF COMPLAINTS: Shortness of breath. HISTORY OF PRESENT ILLNESS: This 69-year-old gentleman with a past medical history of multiple medical problems including history of atrial fibrillation, asthma, CHF, diabetes, hemodialysis, history of renal disease, history of rheumatoid arthritis, seizure disorder, being followed by Dr. Rosen in the outpatient setting, was previously admitted to the hospital in May of this year. The patient, during that admission, had CHF, acute exacerbation, fluid overload, and multiple other medical problems. The patient improved significantly. Patient also had pleural effusion during that time. A 2D echo with Doppler done during that particular admission was showing ejection fraction 40-45 percent with mild valvular abnormalities. Currently the patient is complaining of increasing shortness of breath over the past several days. The patient came to [facility] and was admitted for further evaluation and treatment. Patient missed hemodialysis yesterday. The patient is mildly confused as well. The patient also complaining of some bilateral leg swelling which is increasing in intensity. Ultrasound was negative for DVT and there is no history of fever, rigors or chills. No history of headache, loss of consciousness or seizures. PAST MEDICAL HISTORY: Atrial fibrillation, asthma, CHF, diabetes, hemodialysis, history of DJD, history of renal disease, history of rheumatoid arthritis, seizure disorder. MEDICATIONS: Home medications are: 1. ProRenal 1 tablet p.o. daily. 2. Omeprazole 40 mg p.o. daily. 3. Nifedipine ER 60 mg p.o. daily. 4. Lopressor 50 mg p.o. b.i.d. 5. MagneBind 250/300 mg p.o. b.i.d. with meals. 6. Lispro q.a.c. and at bedtime. 7. Lantus 17 units subcu q8. 8. Lopid 600 mg p.o. b.i.d. 9. Lasix 80 mg p.o. b.i.d. 10.Pepcid 20 mg p.o. b.i.d. 11.Enbrel 50 mg subcu. 12.PhosLo 1334 t.i.d. 13.Symbicort 160/4.5 two puffs b.i.d. 14.Ecotrin 81 mg p.o. daily. 15.Ventolin 2.5 q.i.d. 16.Xanax 0.25 t.i.d. p.r.n. ALLERGIES: BACTRIM FAMILY HISTORY: Family history of metastatic cancer, primary unknown. SOCIAL HISTORY: Previous history of smoking. No history of current smoking or alcohol. REVIEW OF SYSTEMS: ENT diminished vision. Diminished hearing. CARDIOVASCULAR system as mentioned. RESPIRATORY: As mentioned earlier. GI no nausea or vomiting. as mentioned earlier. CENTRAL NERVOUS SYSTEM: No numbness or weakness. ALLERGY/IMMUNOLOGY: No asthma or hayfever. MUSCULOSKELETAL as mentioned earlier. HEMATOLOGY/ONCOLOGY: No history of anemia. ENDOCRINE: As mentioned earlier. CONSTITUTIONAL: As mentioned earlier. DERMATOLOGY: Negative. RHEUMATOLOGY: Negative. PSYCHIATRY: As mentioned earlier. PHYSICAL EXAMINATION: Alert and oriented x3. Pulse is 70. Blood pressure 130/62, respirations 22, temperature 97.4, pulse ox 94% on room air. HEENT: Conjunctivae normal. Oral mucosa moist. NECK is jugular venous distention at the root of the neck. Cardiovascular system: S1, S2 muffled. Ejection systolic murmur. RESPIRATORY: Breath sounds diminished in the bases. A few scattered rhonchi and crackles. ABDOMEN: Soft, obese, nontender. LEGS: Bilateral leg edema. Edema and cellulitis also present and NERVOUS SYSTEM: Higher functions as mentioned earlier. Moves all four limbs. LYMPHATICS: No lymph nodes palpable in the neck, axillae or groin. SKIN no ulcers, no rashes and no bleeding. JOINTS: No active deforming arthropathy. LAB STUDIES: WBC 6.9, hemoglobin 10.8. Sodium 139, potassium 4.2. Creatinine 6.39. ASSESSMENT: 1. Congestive heart failure acute exacerbation with acute on chronic systolic dysfunction ejection fraction 40-45 percent. 2. Bilateral leg cellulitis and erythema and weeping. 3. End-stage renal disease on hemodialysis. 4. Anemia, macrocytic secondary to chronic renal failure. 5. Thrombocytopenia. 6. History of atrial fibrillation. 7. History of asthma chronic intermittent. 8. History of diabetes type 2. 9. History of gastroesophageal reflux disease. 10.Hypertension. 11.History of degenerative joint disease. 12.History of rheumatoid arthritis. 13.History of seizure disorder. 14.History of mineral bone disease. 15.Chronic anemia secondary to renal failure. 16.History of diabetic retinopathy, legally blind. 17.History of chronic peripheral neuropathy. 18.History of bilateral foot wounds. 19.Paroxysmal atrial fibrillation. 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 21.History of chronic back pain. 22.History of seizures. 23.History of bilateral cataract surgery. 24.History of anxiety, depression. 25.Remote history of nicotine dependence. 26.Obesity with body mass of 33.5. 27.Moderate left pleural effusion which is increasing in intensity. RECOMMENDATIONS AND DISCUSSION: This 69-year-old gentleman who presented with multiple complex medical issues, we will monitor the patient closely. Continue the current medications, management and symptomatic treatment. We will consult Nephrology for hemodialysis. We will consult Dr. Reeder for possible thoracocentesis. Otherwise, continue the hemodialysis. Continue rest of medications. Patient also has some cough. Influenza is negative. I would also recommend a course of empiric antibiotics with bronchodilators also. Home medications will be continued. Prognosis guarded because of multiple complex medical issues. Further recommendations to follow. MMJARONL / SAIBNON: [id number] / FELIPE
[2019-06-16] MEDS ORDERED: INSULIN DETEMIR (LEVEMIR) 100 UNIT/ML SYR SQ SCH (21:00)
[2019-06-16] MEDS: CALCIUM ACETATE 667 MG TAB PO SCH (21:16)
[2019-06-16] MEDS: CALCIUM CARB-MAG CARB-FOLIC 1 EACH TAB PO SCH (21:16)
[2019-06-16] MEDS: HEPARIN SODIUM,PORCINE 5,000 UNIT/ML 1 ML VIAL SQ SCH (21:26)
[2019-06-16] MEDS: METOPROLOL TARTRATE 50 MG TAB PO SCH (21:26)
[2019-06-16] MEDS: INSULIN ASPART (NovoLOG) 100 UNIT/ML VIAL SQ SCH (21:26)
[2019-06-16] MEDS: FUROSEMIDE 10 MG/ML 10 ML VIAL IV SCH (23:30)
[2019-06-17 06:22] LABS: Glucose,Whole Blood 177 mg/dL (75-99)
[2019-06-17] MEDS: PANTOPRAZOLE 40 MG TABLET PO SCH (06:26)
[2019-06-17] MEDS: CALCIUM ACETATE 667 MG TAB PO SCH ×3 (06:27→17:03)
[2019-06-17] MEDS: CALCIUM CARB-MAG CARB-FOLIC 1 EACH TAB PO SCH ×2 (06:27→17:03)
[2019-06-17] MEDS: INSULIN ASPART (NovoLOG) 100 UNIT/ML VIAL SQ SCH ×4 (06:27→20:47)
[2019-06-17 06:38] LABS: Anisocytosis Slight; Basophils % (A) 0 %; Eosinophils # (A) 0.3 k/uL (0-0.7); Eosinophils % (A) 5 %; HGB 10.7 gm/dL (13.0-17.5); Hypochromasia Slight; Lymphocytes # (A) 0.7 k/uL (1.0-4.8); Lymphocytes % (A) 11 %; MCHC 30.6 g/dL (31.0-37.0); MCV 104.8 fL (80.0-100.0); Macrocytosis Moderate; Mean Platelet Volume 9.2; Monocytes # (A) 0.3 k/uL (0-1.0); Monocytes % (A) 5 %; Neutrophils % (A) 77 %; Platelet Count 106 k/uL (150-450); RBC 3.34 m/uL (4.30-5.90); RDW 16.8 % (11.5-15.5); WBC 6.5 k/uL (3.8-10.6)
[2019-06-17 06:50] LABS: Calcium 9.2 mg/dL (8.4-10.2); Potassium 4.4 mmol/L (3.5-5.1)
[2019-06-17] MEDS: ALBUTEROL NEBULIZED 2.5 MG/3 ML INHALATION SCH ×4 (07:41→19:42)
[2019-06-17] MEDS: SYMBICORT 160-4.5 MCG INHALER INHALATION SCH ×2 (07:53→19:42)
[2019-06-17] MEDS ORDERED: FAMOTIDINE 20 MG TAB PO SCH (09:00)
[2019-06-17] MEDS: ASPIRIN 81 MG PO SCH (09:02)
[2019-06-17] MEDS: FUROSEMIDE 10 MG/ML 10 ML VIAL IV SCH ×2 (09:03→20:57)
[2019-06-17] MEDS: HEPARIN SODIUM,PORCINE 5,000 UNIT/ML 1 ML VIAL SQ SCH (09:03)
[2019-06-17] MEDS: FOLIC ACID-VIT B COMPLEX-VIT C 1 CAP PO SCH (09:03)
[2019-06-17] MEDS: FENOFIBRATE 160 MG TAB PO SCH (09:03)
[2019-06-17] MEDS: METOPROLOL TARTRATE 50 MG TAB PO SCH ×2 (09:03→20:47)
--- NOTE | 2019-06-17 09:44 | US ---
EXAMINATION TYPE: US chest DATE OF EXAM: 06/17/2019 COMPARISON: x ray from yesterday. CLINICAL HISTORY: Markings for thoracentesis by pulmonary staff. TECHNIQUE: Targeted ultrasound of the posterior bilateral hemithoraces EXAM MEASUREMENTS: Right Pleural Effusion pocket size: no fluid seen Left Pleural Effusion pocket size: 8.2 cm A/P Left skin surface to fluid distance: 4.3 cm A/P Left side was marked for possible thoracentesis outside the dept. Pulmonologists are able to review the images in the patient?s EMR. 5 images show no significant right-sided effusion and fairly moderate sized left pleural effusion whi ch correlates with recent x-ray. IMPRESSIONS: As above.
--- NOTE | 2019-06-17 09:57 | P.NPCON ---
History of Present Illness - Reason for Consult end stage renal disease - History of Present Illness Reason for consultation: End-stage renal disease History of present illness: Patient is a 69-year-old male seen in renal consultation for end-stage renal disease. He is maintained on hemodialysis on Sunday schedule. Patient presented to the hospital with dyspnea. He was also complaining of orthopnea. Patient underwent hemodialysis yesterday at 3.5 L ultrafiltration. Patient states both his upper extremities cramped during the treatment. He denies missing any treatments outpatient. No vomiting or diarrhea. No fever or chills. No chest pain. Hemodynamically stable. Chest x-ray suggestive of fluid overload. Chest ultrasound revealed left-sided pleural effusion. He is agreeable to undergo an extra treatment of hemodialysis today. Vital signs are stable. General: The patient appeared well nourished and normally developed. HEENT: Head exam is unremarkable. Neck is without jugular venous distension. LUNGS: Lungs are clear to auscultation and percussion. Breath sounds decreased. HEART: Rate and Rhythm are regular. First and second heart sounds normal. No murmurs, rubs or gallops. ABDOMEN: Abdominal exam reveals normal bowel sounds. Non-tender and non- distended. No evidence of peritonitis. EXTREMITITES: Wrapped. 2+ edema. Past Medical History Past Medical History: Atrial Fibrillation, Asthma, Heart Failure, Diabetes Me llitus, Dialysis, Eye Disorder, GERD/Reflux, Hypertension, Osteoarthritis (OA), Pneumonia, Renal Disease, Rheumatoid Arthritis (RA), Seizure Disorder Additional Past Medical History / Comment(s): ESRD with hemodialysis, mineral bone disease, chronic anemia, IDDM type II, diabetic retinopathy-"legally blind", chronic neuropathy occasionally in toes bilateral feet and left leg, bilateral lower leg edema, cellulitis bilateral lower legs, past leg/foot wounds and currently has left medial leg wounds that have scabbed over and no longer goes to [facility], paroxysmal Afib, 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 History of Any Multi-Drug Resistant Organisms: None Reported Past Surgical History: Hernia Repair, Orthopedic Surgery Additional Past Surgical History / Comment(s): Bilateral cataract surgery, insertion dialysis catheter left arm then had a procedure done to dialysis catheter at [facility]-cannot recall exactly what was done, PICC line insertion/removed, bilateral inguinal hernina repairs, colonoscopy/polypectomy, R shoulder rotator cuff repair, debridements bilateral feet. Past Anesthesia/Blood Transfusion Reactions: No Reported Reaction Additional Past Anesthesia/Blood Transfusion Reaction / Comment(s): Pt received blood in past without reaction. Past Psychological History: Anxiety, Depression Additional Psychological History / Comment(s): lives with his and family home. 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 No travel since his days. no animals in the home Smoking Status: Former smoker Past Alcohol Use History: None Reported Additional Past Alcohol Use History / Comment(s): Pt started smoking in 1963 and quit in 1987. During that time, a pack of cigarettes would last 1 week. Past Drug Use History: None Reported - Past Family History Mother Family Medical History: Diabetes Mellitus Father Family Medical History: Cancer Additional Family Medical History / Comment(s): Metastatic cancer. Pt cannot recall primary. Medications and Allergies Home Medications Medication Instructions Recorded Confirmed Type Etanercept [Enbrel] 50 mg SQ LUU 06/12/14 06/16/19 History NIFEdipine [NIFEdipine ER] 60 mg PO DAILY 06/12/14 06/16/19 History Aspirin EC [Ecotrin Low Dose] 81 mg PO DAILY 07/31/18 06/16/19 History Gemfibrozil [Lopid] 600 mg PO BID 07/31/18 06/16/19 History Budesonide-Formot 160-4.5 Mcg 2 puff INHALATION RT-BID 02/26/19 06/16/19 History [Symbicort 160-4.5 Mcg Inhaler] Calcium Acetate [PhosLo] 1,334 mg PO TID-W/MEALS 02/26/19 06/16/19 History Magnebind 250/300mg 1 tab PO BID-W/MEALS 02/26/19 06/16/19 History Metoprolol Tartrate [Lopressor] 50 mg PO BID 02/26/19 06/16/19 History Omeprazole 40 mg PO DAILY 02/26/19 06/16/19 History Prorenal + D 1 tab PO DAILY 02/26/19 06/16/19 History Albuterol Nebulized [Ventolin 2.5 mg INHALATION RT-QID 03/17/19 06/16/19 History Nebulized] Famotidine [Pepcid] 20 mg PO BID #30 tablet 03/20/19 06/16/19 Rx Furosemide [Lasix] 80 mg PO BID@0900,1600 tab 03/20/19 06/16/19 Rx ALPRAZolam [Xanax] 0.25 mg PO TID PRN 3 Days #9 tab 05/17/19 06/16/19 Rx Insulin Glargine,Hum.rec.anlog 17 unit SQ HS 06/16/19 06/16/19 History [Lantus Solostar] Insulin Lispro [humaLOG Kwikpen] See Protocol SQ ACHS 06/16/19 06/16/19 History Allergies Allergy/AdvReac Type Severity Reaction Status Date / Time sulfamethoxazole AdvReac Unknown Nausea & Verified 06/16/19 15:19 [From Bactrim] Vomiting trimethoprim [From Bactrim] AdvReac Unknown Nausea & Verified 06/16/19 15:19 Vomiting Physical Exam Vitals: Vital Signs Temp Pulse Pulse Resp BP BP Pulse Ox 06/17/19 08:00 98.0 F 67 18 159/71 99 06/17/19 07:42 64 06/17/19 03:52 66 18 06/17/19 03:51 97.4 F L 66 18 147/69 98 06/17/19 00:00 97.7 F 63 18 157/75 95 06/16/19 21:19 97.3 F L 78 18 146/78 06/16/19 20:14 63 06/16/19 20:00 97.3 F L 64 20 147/85 99 06/16/19 19:55 93 L 06/16/19 19:51 63 06/16/19 15:29 97.4 F L 70 22 130/62 94 L 06/16/19 14:37 80 18 140/72 98 06/16/19 11:28 97.4 F L 68 24 153/76 96 Intake and Output 06/16/19 06/17/19 06/17/19 22:59 06:59 14:59 Intake Total 240 50 240 Output Total 3500 Balance -3260 50 240 Intake: Intake, IV Titration 50 Amount ceFAZolin 2 gm In Sodium 50 Chloride 0.9% 50 ml @ 100 mls/hr IVPB Q8H [facility] Rx#: [id number] Oral 240 240 Output: Hemodialysis 3500 Other: Voiding Method Urinal Urinal # Voids 100 0 Weight 121.563 kg 125.7 kg Results - Lab Results Most recent lab results Calcium 9.2 mg/dL (8.4-10.2) 06/17/19 05:36 Magnesium 1.9 mg/dL (1.6-2.3) 06/16/19 12:20 06/17/19 05:36 06/17/19 05:36 Assessment and Plan Plan: Assessment: 1. End-stage renal disease maintained on hemodialysis on Sunday schedule. 2. Volume overload. 3. Left-sided pleural effusion. 4. Hypertension with chronic kidney disease. 5. Lower extremity wounds maintained on antibiotics. 6. Chronic kidney disease mineral bone disease maintained on phosphate binders. Plan: Extra treatment of hemodialysis today mostly for ultrafiltration. Another treatment tomorrow per his outpatient schedule. Low-salt diet and 1500 mL fluid restriction. Thank you for the consultation. I will continue to follow the patient with you during his hospital stay.
[2019-06-17 10:06] VITALS: BMI 34.6
[2019-06-17 11:29] LABS: Glucose,Whole Blood 195 mg/dL (75-99)
[2019-06-17] MEDS: MULTIVITAMINS, THERA 1 EACH TAB PO SCH (11:45)
--- NOTE | 2019-06-17 13:01 | P.CNPUL ---
History of Present Illness Consult date: 06/17/19 Requesting physician: Germain Dowd Reason for consult: dyspnea, pleural effusion Chief complaint: Shortness of breath History of present illness: 69-year-old male patient of Dr. Rosen, with past history of end- stage renal disease on hemodialysis on Sunday basis, paroxysmal atrial fibrillation, chronic congestive heart failure with systolic dysfunction, diabetes mellitus, hypertension, rheumatoid arthritis, seizure disorder, chronic wounds involving bilateral lower extremities, cellulitis, patient goes to the wound care clinic, anxiety, and former smoker. Patient presented to the emergency department on 06/16/2019 with complaints of worsening shortness of b reath, he states his been compliant with dialysis, his last treatment was on Sunday. Complained of increasing orthopnea, and lower extremity edema, he denied any fever, cough or congestion, denied any phlegm production. He had a recent ultrasound of lower extremities that were negative for DVT. Chest x-ray showed moderate slightly increasing left pleural effusion with associated airspace disease likely compressive atelectasis, and mild pulmonary vascular congestion. Chest ultrasound showed 8.2 cm fluid pocket on the left side with skin surface to fluid distance of 4.3 cm. Left pleural effusion is chronic in nature, and was present on previous chest x-rays in January, March 2019 and May 2019. Lab work was reviewed showing white blood cell, 6.9, hemoglobin is 10.8, anticoagulation was within normal limits, electrolytes were within normal limits, BUN was 65 and creatinine was 6.35, proBNP was 57,001 100, troponin was 0.025, LFTs were within normal limits, influenza screen was negative, RSV was negative. Patient is on 2 L of oxygen and the pulse ox of 99%, his been afebrile, he had hemodialysis treatment yesterday would removal (a half liters of fluid, and is having another hemodialysis treatment today. Review of Systems All systems: negative Constitutional: Denies chills, Denies fever Eyes: denies blurred vision, denies pain Ears, nose, mouth and throat: Denies headache, Denies sore throat Cardiovascular: Reports decreased exercise tolerance, Reports dyspnea on exertion, Reports edema, Reports leg edema, Reports orthopnea, Reports shortness of breath, Denies chest pain Respiratory: Reports dyspnea, Reports home oxygen, Denies cough Gastrointestinal: Denies abdominal pain, Denies diarrhea, Denies nausea, Denies vomiting Musculoskeletal: Denies myalgias Musculoskeletal: bilateral: ankle swelling Integumentary: Reports foot/leg ulcers, Reports wounds, Denies pruritus, Denies rash Neurological: Denies numbness, Denies weakness Psychiatric: Denies anxiety, Denies depression Endocrine: Reports weight change, Denies fatigue Past Medical History Past Medical History: Atrial Fibrillation, Asthma, Heart Failure, Diabetes Mellitus, Dialysis, Eye Disorder, GERD/Reflux, Hypertension, Osteoarthritis (OA), Pneumonia, Renal Disease, Rheumatoid Arthritis (RA), Seizure Disorder Additional Past Medical History / Comment(s): ESRD with hemodialysis, mineral b one disease, chronic anemia, IDDM type II, diabetic retinopathy-"legally blind", chronic neuropathy occasionally in toes bilateral feet and left leg, bilateral lower leg edema, cellulitis bilateral lower legs, past leg/foot wounds and currently has left medial leg wounds that have scabbed over and no longer goes to [facility], paroxysmal Afib, 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 History of Any Multi-Drug Resistant Organisms: None Reported Past Surgical History: Hernia Repair, Orthopedic Surgery Additional Past Surgical History / Comment(s): Bilateral cataract surgery, insertion dialysis catheter left arm then had a procedure done to dialysis catheter at [facility]-cannot recall exactly what was done, PICC line insertion/removed, bilateral inguinal hernina repairs, colonoscopy/polypectomy, R shoulder rotator cuff repair, debridements bilateral feet. Past Anesthesia/Blood Transfusion Reactions: No Reported Reaction Additional Past Anesthesia/Blood Transfusion Reaction / Comment(s): Pt received blood in past without reaction. Past Psychological History: Anxiety, Depression Additional Psychological History / Comment(s): lives with his and family home. 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 No travel since his days. no animals in the home Smoking Status: Former smoker Past Alcohol Use History: None Reported Additional Past Alcohol Use History / Comment(s): Pt started smoking in 1963 and quit in 1987. During that time, a pack of cigarettes would last 1 week. Past Drug Use History: None Reported - Past Family History Mother Family Medical History: Diabetes Mellitus Father Family Medical History: Cancer Additional Family Medical History / Comment(s): Metastatic cancer. Pt cannot recall primary. Medications and Allergies Home Medications Medication Instructions Recorded Confirmed Type Etanercept [Enbrel] 50 mg SQ LUU 06/12/14 06/16/19 History NIFEdipine [NIFEdipine ER] 60 mg PO DAILY 06/12/14 06/16/19 History Aspirin EC [Ecotrin Low Dose] 81 mg PO DAILY 07/31/18 06/16/19 History Gemfibrozil [Lopid] 600 mg PO BID 07/31/18 06/16/19 History Budesonide-Formot 160-4.5 Mcg 2 puff INHALATION RT-BID 02/26/19 06/16/19 History [Symbicort 160-4.5 Mcg Inhaler] Calcium Acetate [PhosLo] 1,334 mg PO TID-W/MEALS 02/26/19 06/16/19 History Magnebind 250/300mg 1 tab PO BID-W/MEALS 02/26/19 06/16/19 History Metoprolol Tartrate [Lopressor] 50 mg PO BID 02/26/19 06/16/19 History Omeprazole 40 mg PO DAILY 02/26/19 06/16/19 History Prorenal + D 1 tab PO DAILY 02/26/19 06/16/19 History Albuterol Nebulized [Ventolin 2.5 mg INHALATION RT-QID 03/17/19 06/16/19 History Nebulized] Famotidine [Pepcid] 20 mg PO BID #30 tablet 03/20/19 06/16/19 Rx Furosemide [Lasix] 80 mg PO BID@0900,1600 tab 03/20/19 06/16/19 Rx ALPRAZolam [Xanax] 0.25 mg PO TID PRN 3 Days #9 tab 05/17/19 06/16/19 Rx Insulin Glargine,Hum.rec.anlog 17 unit SQ HS 06/16/19 06/16/19 History [Lantus Solostar] Insulin Lispro [humaLOG Kwikpen] See Protocol SQ ACHS 06/16/19 06/16/19 History Allergies Allergy/AdvReac Type Severity Reaction Status Date / Time sulfamethoxazole AdvReac Unknown Nausea & Verified 06/16/19 15:19 [From Bactrim] Vomiting trimethoprim [From Bactrim] AdvReac Unknown Nausea & Verified 06/16/19 15:19 Vomiting Physical Exam Vitals: Vital Signs Temp Pulse Pulse Resp BP BP Pulse Ox 06/17/19 11:59 64 18 06/17/19 11:30 68 06/17/19 11:18 68 06/17/19 11:08 98.0 F 64 18 160/75 99 06/17/19 08:00 98.0 F 67 18 159/71 99 06/17/19 07:53 64 06/17/19 07:42 64 06/17/19 03:52 66 18 06/17/19 03:51 97.4 F L 66 18 147/69 98 06/17/19 00:00 97.7 F 63 18 157/75 95 06/16/19 21:19 97.3 F L 78 18 146/78 06/16/19 20:14 63 06/16/19 20:00 97.3 F L 64 20 147/85 99 06/16/19 19:55 93 L 06/16/19 19:51 63 06/16/19 15:29 97.4 F L 70 22 130/62 94 L 06/16/19 14:37 80 18 140/72 98 Intake and Output 06/16/19 06/17/19 06/17/19 22:59 06:59 14:59 Intake Total 240 50 240 Output Total 3500 Balance -3260 50 240 Intake: Intake, IV Titration 50 Amount ceFAZolin 2 gm In Sodium 50 Chloride 0.9% 50 ml @ 100 mls/hr IVPB Q8H [facility] Rx#: [id number] Oral 240 240 Output: Hemodialysis 3500 Other: Voiding Method Urinal Urinal # Voids 100 0 Weight 121.563 kg 125.7 kg 125.7 kg GENERAL EXAM: Alert, active, very pleasant, 69-year-old white male, on 2 L of oxygen the pulse ox of 99% comfortable in no apparent distress. HEAD: Normocephalic/atraumatic. EYES: Normal reaction of pupils, equal size. Conjunctiva pink, sclera white. NOSE: Clear with pink turbinates. THROAT: No erythema or exudates. NECK: No masses, no JVD, no thyroid enlargement, no adenopathy. CHEST: No chest wall deformity. Symmetrical expansion. LUNGS: Diminished breath sounds over left mid and lower lobe, with dullness to percussion, right basilar crackles CVS: Regular rate and rhythm, normal S1 and S2, no gallops, no murmurs, no rubs ABDOMEN: Soft, nontender. No hepatosplenomegaly, normal bowel sounds, no guarding or rigidity. EXTREMITIES: No clubbing, 2+ lower extremity edema, with chronic open wounds with clear and yellowish exudate, Lg wrapped, no cyanosis, 2+ pulses and upper and lower extremities. MUSCULOSKELETAL: Muscle strength and tone normal. SPINE: No scoliosis or deformity SKIN: No rashes CENTRAL NERVOUS SYSTEM: Alert and oriented -3. No focal deficits, tone is normal in all 4 extremities. PSYCHIATRIC: Alert and oriented -3. Appropriate affect. Intact judgment and insight. Results - Laboratory Findings CBC and BMP: 06/17/19 05:36 06/17/19 05:36 PT/INR, D-dimer PT 11.0 sec (9.0-12.0) 06/16/19 12:20 INR 1.1 (<1.2) 06/16/19 12:20 Abnormal lab findings: Abnormal Labs 06/16/19 06/16/19 06/16/19 12:20 12:20 17:19 RBC 3.34 L Hgb 10.8 L Hct 34.9 L MCV 104.6 H MCHC 30.8 L RDW 17.1 H Plt Count 116 L Lymphocytes # 0.7 L BUN 65 H Creatinine 6.39 H Glucose 323 H POC Glucose (mg/dL) 323 H 06/16/19 06/17/19 06/17/19 20:33 05:36 05:36 RBC 3.34 L Hgb 10.7 L Hct 35.0 L MCV 104.8 H MCHC 30.6 L RDW 16.8 H Plt Count 106 L Lymphocytes # 0.7 L BUN 49 H Creatinine 5.47 H Glucose 159 H POC Glucose (mg/dL) 226 H 06/17/19 06/17/19 06:21 11:28 RBC Hgb Hct MCV MCHC RDW Plt Count Lymphocytes # BUN Creatinine Glucose POC Glucose (mg/dL) 177 H 195 H - Diagnostic Findings Chest x-ray: report reviewed, image reviewed Additional studies: Chest ultrasound reviewed Assessment and Plan Plan: Assessment: #1. Dyspnea related to acute exacerbation of chronic congestive heart failure with systolic dysfunction, #2. Chronic left pleural effusion, mildly worsened since last chest x-ray in May 2019 #3. Orthopnea, worsening dyspnea, and lower extremity edema related to the above #4. End-stage renal disease on hemodialysis on Sunday frank nuhakiah, patient was dialyzed on 06/17/2019 milligrams removal of 3-1/2 L of fluid, and is having another repeat hemodialysis treatment today #5. Paroxysmal atrial fibrillation, currently in A. fib, was previously on Eliquis #6. Diabetes mellitus type 2 with diabetic neuropathy and diabetic retinopathy #7. 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 Chronic obstructive pulmonary disease on home oxygen #9. History of chronic tobacco dependence, currently in remission #10. Rheumatoid arthritis #11. History of seizure disorder #12. Chronic bilateral lower extremity wounds, patient follows at the wound care clinic #13. Chronic venous insufficiency and peripheral arterial disease, with previous right foot cultures positive for pseudomonas aeruginosa, and stap hylococcus species in the left leg Plan: Ultrasound of the chest has been reviewed showing 8.2 cm fluid pocket on the left side, chest x-ray has been reviewed showing only mild worsening since last chest x-ray in May. We will repeat chest x-ray today after hemodialysis. Patient had hemodialysis treatment yesterday with removal 3.5 L of fluid, anticipate further improvement in his breathing. Vital signs are stable, continue Symbicort, continue breathing treatments. Will review chest x-ray and make further recommendations. We'll continue to follow I performed a history & physical examination of the patient and discussed their management with my nurse practitioner, Raven Arias. I reviewed the nurse practitioner's note and agree with the documented findings and plan of care. Lung sounds are positive for diminished breath sounds at the left base. The findings and the impression was discussed with the patient. I attest to the documentation by the nurse practitioner. Time with Patient: Greater than 30
--- NOTE | 2019-06-17 13:16 | P.CONS ---
History of Present Illness - Reason for Consult Consult date: 06/17/19 wound care - History of Present Illness This is a 67-year-old gentleman with a past medical history of atrial fibrillation, heart failure, diabetes, end-stage kidney disease with dialysis on Sunday, acid reflux, hypertension, rheumatoid arthritis, diabetic retinopathy. He has significant diabetic neuropathy. He is a known patient to the wound care center. Who has multiple ulcerations to bilateral lower extremities that appear to be ruptured bullae. The patient has been using honey alginate however he was changed to absorptive Silver. Patient is encouraged to keep his legs elevated and to keep his compression garments on. Patient is noncompliant. Review of Systems Review Of Systems: Constitutional: No fever, no chills, no night sweats. No weight change. No weakness, fatigue or lethargy. No daytime sleepiness. Integumentary:reports wounds, no lesions. No rash or pruritus. No unusual bruising. No change in hair or nails. Past Medical History Past Medical History: Atrial Fibrillation, Asthma, Heart Failure, Diabetes Mellitus, Dialysis, Eye Disorder, GERD/Reflux, Hypertension, Osteoarthritis (OA), Pneumonia, Renal Disease, Rheumatoid Arthritis (RA), Seizure Disorder Additional Past Medical History / Comment(s): ESRD with hemodialysis, mineral bone disease, chronic anemia, IDDM type II, diabetic retinopathy-"legally blind", chronic neuropathy occasionally in toes bilateral feet and left leg, bilateral lower leg edema, cellulitis bilateral lower legs, past leg/foot wounds and currently has left medial leg wounds that have scabbed over and no longer goes to [facility], paroxysmal Afib, 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 History of Any Multi-Drug Resistant Organisms: None Reported Past Surgical History: Hernia Repair, Orthopedic Surgery Additional Past Surgical History / Comment(s): Bilateral cataract surgery, insertion dialysis catheter left arm then had a procedure done to dialysis catheter at [facility]-cannot recall exactly what was done, PICC line insertion/removed, bilateral inguinal hernina repairs, colonoscopy/polypectomy, R shoulder rotator cuff repair, debridements bilateral feet. Past Anesthesia/Blood Transfusion Reactions: No Reported Reaction Additional Past Anesthesia/Blood Transfusion Reaction / Comm: Pt received blood in past without reaction. Past Psychological History: Anxiety, Depression Additional Psychological History / Comment(s): lives with his and family home. 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 No travel since his days. no animals in the home Smoking Status: Former smoker Past Alcohol Use History: None Reported Additional Past Alcohol Use History / Comment(s): Pt started smoking in 1963 and quit in 1987. During that time, a pack of cigarettes would last 1 week. Past Drug Use History: None Reported - Past Family History Mother Family Medical History: Diabetes Mellitus Father Family Medical History: Cancer Additional Family Medical History / Comment(s): Metastatic cancer. Pt cannot recall primary. Medications and Allergies Home Medications Medication Instructions Recorded Confirmed Type Etanercept [Enbrel] 50 mg SQ LUU 06/12/14 06/16/19 History NIFEdipine [NIFEdipine ER] 60 mg PO DAILY 06/12/14 06/16/19 History Aspirin EC [Ecotrin Low Dose] 81 mg PO DAILY 07/31/18 06/16/19 History Gemfibrozil [Lopid] 600 mg PO BID 07/31/18 06/16/19 History Budesonide-Formot 160-4.5 Mcg 2 puff INHALATION RT-BID 02/26/19 06/16/19 History [Symbicort 160-4.5 Mcg Inhaler] Calcium Acetate [PhosLo] 1,334 mg PO TID-W/MEALS 02/26/19 06/16/19 History Magnebind 250/300mg 1 tab PO BID-W/MEALS 02/26/19 06/16/19 History Metoprolol Tartrate [Lopressor] 50 mg PO BID 02/26/19 06/16/19 History Omeprazole 40 mg PO DAILY 02/26/19 06/16/19 History Prorenal + D 1 tab PO DAILY 02/26/19 06/16/19 History Albuterol Nebulized [Ventolin 2.5 mg INHALATION RT-QID 03/17/19 06/16/19 History Nebulized] Famotidine [Pepcid] 20 mg PO BID #30 tablet 03/20/19 06/16/19 Rx Furosemide [Lasix] 80 mg PO BID@0900,1600 tab 03/20/19 06/16/19 Rx ALPRAZolam [Xanax] 0.25 mg PO TID PRN 3 Days #9 tab 05/17/19 06/16/19 Rx Insulin Glargine,Hum.rec.anlog 17 unit SQ HS 06/16/19 06/16/19 History [Lantus Solostar] Insulin Lispro [humaLOG Kwikpen] See Protocol SQ ACHS 06/16/19 06/16/19 History Allergies Allergy/AdvReac Type Severity Reaction Status Date / Time sulfamethoxazole AdvReac Unknown Nausea & Verified 06/16/19 15:19 [From Bactrim] Vomiting trimethoprim [From Bactrim] AdvReac Unknown Nausea & Verified 06/16/19 15:19 Vomiting Physical Exam Vitals: Vital Signs Temp Pulse Pulse Resp BP BP Pulse Ox 06/17/19 11:59 64 18 06/17/19 11:30 68 06/17/19 11:18 68 06/17/19 11:08 98.0 F 64 18 160/75 99 06/17/19 08:00 98.0 F 67 18 159/71 99 06/17/19 07:53 64 06/17/19 07:42 64 06/17/19 03:52 66 18 06/17/19 03:51 97.4 F L 66 18 147/69 98 06/17/19 00:00 97.7 F 63 18 157/75 95 06/16/19 21:19 97.3 F L 78 18 146/78 06/16/19 20:14 63 06/16/19 20:00 97.3 F L 64 20 147/85 99 06/16/19 19:55 93 L 06/16/19 19:51 63 06/16/19 15:29 97.4 F L 70 22 130/62 94 L 06/16/19 14:37 80 18 140/72 98 Intake and Output 06/16/19 06/17/19 06/17/19 22:59 06:59 14:59 Intake Total 240 50 240 Output Total 3500 Balance -3260 50 240 Intake: Intake, IV Titration 50 Amount ceFAZolin 2 gm In Sodium 50 Chloride 0.9% 50 ml @ 100 mls/hr IVPB Q8H [facility] Rx#: [id number] Oral 240 240 Output: Hemodialysis 3500 Other: Voiding Method Urinal Urinal # Voids 100 0 Weight 121.563 kg 125.7 kg 125.7 kg Physical exam: General Appearance: Alert, cooperative, no distress, appears stated age. Skin: Patient has multiple ulcerations, left posterior lower leg measuring oppressed by 3.5 x 3.2 x 0.1 cm Limited to skin breakdown, no tunneling or undermining, left medial lower leg measures 2.9 x 1.2 x 0.1 cm approximately Limited to skin breakdown with no tunneling or undermining lymphoma on a serosanguineous drainage. Left plantar foot ulceration measuring approximately 0.9 x 1.2 x 0.1 cm Limited to skin breakdown with no tunneling or undermining, right lateral plantar foot measuring approximately 1.2 x 0.9 x 0.2 cm Limited to skin breakdown noted tunneling or undermining, right anterior lower leg measuring approximately 4.1 x 2.8 x 0.1 cm with no tunneling or undermining with a large amount of serosanguineous drainage, right medial posterior lower leg measuring approximate 2.4 x 1.4 x 0.2 cm Limited to skin breakdown, no tunneling or undermining, large amount of serous drainage, left medial lower leg measures 3.9 x 0.9 x 0.1 cm Limited to skin breakdown and no tunneling or undermining, distal medial upper leg measuring 1.3 x 1.1 x 0.1 cm approximately Limited to skin breakdown noted tunneling or undermining small amount of serous discharge drainage, left distal lateral lower leg measuring approximate 2.1 x 4.3 x 0.1 cm Limited to skin breakdown noted tunneling undermined with large amount of serosanguineous drainage. all other Skin color, texture, tugor normal, no rashes or lesions. Neurologic: Alert oriented x3 Results CBC & Chem 7: 06/17/19 05:36 06/17/19 05:36 Labs: Abnormal Lab Results - Last 24 Hours (Table) 06/16/19 06/16/19 06/17/19 Range/Units 17:19 20:33 05:36 RBC 3.34 L (4.30-5.90) m/uL Hgb 10.7 L (13.0-17.5) gm/dL Hct 35.0 L (39.0-53.0) % MCV 104.8 H (80.0-100.0) fL MCHC 30.6 L (31.0-37.0) g/dL RDW 16.8 H (11.5-15.5) % Plt Count 106 L (150-450) k/uL Lymphocytes # 0.7 L (1.0-4.8) k/uL BUN (9-20) mg/dL Creatinine (0.66-1.25) mg/dL Glucose (74-99) mg/dL POC Glucose (mg/dL) 323 H 226 H (75-99) mg/dL 06/17/19 06/17/19 06/17/19 Range/Units 05:36 06:21 11:28 RBC (4.30-5.90) m/uL Hgb (13.0-17.5) gm/dL Hct (39.0-53.0) % MCV (80.0-100.0) fL MCHC (31.0-37.0) g/dL RDW (11.5-15.5) % Plt Count (150-450) k/uL Lymphocytes # (1.0-4.8) k/uL BUN 49 H (9-20) mg/dL Creatinine 5.47 H (0.66-1.25) mg/dL Glucose 159 H (74-99) mg/dL POC Glucose (mg/dL) 177 H 195 H (75-99) mg/dL Assessment and Plan (1) Chronic venous hypertension w/ulcer and inflammation involv both sides Current Visit: No Status: Acute Code(s): I87.333 - CHRONIC VENOUS HTN W ULCER AND INFLAM OF BILATERAL LOW EXTRM; L97.919 - NON-PRS CHRONIC ULC UNSP PRT OF R LOW LEG W UNSP SEVERITY; L97.929 - NON-PRS CHRONIC ULC UNSP PRT OF L LOW LEG W UNSP SEVERITY SNOMED Code(s): 132557506 (2) Diabetic foot ulcer associated with type 2 diabetes mellitus Current Visit: No Status: Acute Code(s): E11.621 - TYPE 2 DIABETES MELLITUS WITH FOOT ULCER SNOMED Code(s): 556649575 (3) Diabetic leg ulcer Current Visit: No Status: Acute Code(s): E11.622 - TYPE 2 DIABETES MELLITUS WITH OTHER SKIN ULCER SNOMED Code(s): 291451968 (4) Ulcer of right lower extremity with fat layer exposed Current Visit: No Status: Acute Code(s): L97.912 - NON-PRS [facility] UNSP PRT OF R LOW LEG W FAT LAYER EXPOSED SNOMED Code(s): 61599413 Plan: Apply observed to silver, saline moistened gauze, dry gauze, rolled gauze secured paper tape. Secure with elastic wrapped to decrease swelling. Elevate legs at least 30 minutes a day 3 times a day. Continue with wound care appointments as scheduled. Thank you kindly for the consultation. Any questions please contact the wound care center. DNP note has been reviewed and discussed with Dr. Messina and the impression and plan of care has been directed as dictated.
--- NOTE | 2019-06-17 15:47 | CDI ---
Documentation Clarification Form Date: 06/17/2019 03:41:01 PM From: Sherri Cuevas RN, CCDS Admit Date: 06/16/2019 02:00:00 PM Patient Name: Grzegorz Palma Visit Number: [id number] ATTENTION: The Clinical Documentation Specialists (CDI) and [facility] Coding Staff appreciate your assistance in clarifying documentation. Please respond to the clarification below the line at the bottom and electronically sign. The CDI & [facility] Coding staff will review the response and follow-up if needed. Please note: Queries are made part of the Legal Health Record. If you have any questions, please contact the author of this message via ITS. Dr. Renetta Reeder Patient is maintained on Home O2 OTC per Pulmonary Documentation. Please provide clinical significance. History/Risk Factors: ESRD, COPD Tobacco use: Hx of tobacco dependence currently in remission Home oxygen: per pulmonary progress note Clinical Indicators: 06/15 1128 Admission Vital signs: temp 97.4, Hr 68, RR 24, B/P 153/76, Spo2 96% room air Pulse oximetry: 93-99% 2l NC 06/16 Pulmonary Lung/Breathing assessment: LUNGS: Diminished breath sounds over left mid and lower lobe, with dullness to percussion, right basilar crackles." Treatment: Breathing TX Continuous Pulse ox O2: RA to 2L NC In your professional opinion, can you please clarify if these findings signify one of the following conditions? Chronic Hypoxic Respiratory Failure Chronic Hypercapnic respiratory failure Other Diagnosis, please specify Unable to determine (Last Query Form Revision: December 2018) MTDD
--- NOTE | 2019-06-17 16:19 | XR ---
EXAMINATION TYPE: XR chest 1V portable DATE OF EXAM: 06/17/2019 COMPARISON: 06/16/2019 HISTORY: Shortness of breath TECHNIQUE: Single frontal view of the chest is obtained. FINDINGS: There is a stable moderate left pleural effusion with associated left basilar airspace dis ease. Right lung remains well aerated. Resolved pulmonary vascular congestion. Persistently partially obscured cardiac mediastinal silhouette that appears overall stable. No acute osseous process. IMPRESSION: Similar moderate left pleural effusion and associated airspace disease, likely compressi ve atelectasis. Resolved pulmonary vascular congestion.
[2019-06-17 16:47] LABS: Glucose,Whole Blood 196 mg/dL (75-99)
--- NOTE | 2019-06-17 19:57 | PN ---
PROGRESS NOTE DATE OF SERVICE: 06/17/2019 This 69-year-old gentleman admitted with CHF, acute exacerbation, acute on chronic systolic dysfunction, had bilateral leg cellulitis and erythema and weeping also. The patient also has renal disease and is on hemodialysis. Patient had hemodialysis today. They are taking about 2 L of fluid today. The most recent chest x-ray, which was personally reviewed by me, showed significant pleural effusion on the left side and evidence of some CHF also. The patient is followed by Wound Care, also. Dr. Reeder is also following the patient closely. Dr. Reeder recommended an ultrasound, which showed an 8.2 cm fluid pocket and continues to monitor. There is no history of any fever, rigor or chills. No history of headache, loss of consciousness, seizures. Past medical history reviewed. REVIEW OF SYSTEMS: CARDIOVASCULAR SYSTEM: No angina, palpitations. RESPIRATORY SYSTEM: As mentioned earlier. GI: As mentioned earlier. : As mentioned earlier. NERVOUS SYSTEM: No numbness, weakness. CURRENT MEDICATIONS: Reviewed. They include: 1. Tylenol p.r.n. 2. Mccaskill 5 mg q.6 p.r.n. 3. Ventolin 2.5 q.i.d. 4. Xanax 0.25 t.i.d. 5. Eliquis 2.5 mg b.i.d. 6. Aspirin 81 mg p.o. daily. 7. Symbicort 160/4.5 two puffs b.i.d. 8. MagneBind 400 mg p.o. b.i.d. 9. PhosLo 1334 mg p.o. t.i.d. 10.Kefzol 2 grams IV b.i.d. 11.Lofibra. 12.Lasix 80 mg IV b.i.d. 13.Dilaudid. 14.NovoLog. 15.Lopressor. 16.Multivitamins. 17.Procardia XL. 18.Protonix. Doses are reviewed. PHYSICAL EXAMINATION: Patient is alert, oriented x3. Pulse 65, blood pressure 130/60, respiration 18, temperature 97.4, pulse ox 94% on room air. HEENT: Conjunctivae normal. NECK: No jugular venous distention. CARDIOVASCULAR SYSTEM: S1, S2 muffled. RESPIRATORY SYSTEM: Breath sounds diminished at the bases. A few scattered rhonchi and crackles. ABDOMEN: Soft, obese, non-tender. LEGS: Bilateral leg edema. Cellulitis. NERVOUS SYSTEM: No focal deficit. LABS/IMAGING: WBC 6.7, hemoglobin 10.7. Platelets are 106. Creatinine is 5.47. Accu-Cheks are noted. Cultures are negative so far. Chest x-ray reviewed personally. ASSESSMENT: 1. Congestive heart failure, acute exacerbation, with acute on chronic systolic dysfunction, ejection fraction 40% to 45%. 2. Bilateral leg cellulitis and erythema and weeping and failure of outpatient treatment. 3. End-stage renal disease, on hemodialysis. 4. Left-sided pleural effusion, acute on chronic. 5. Anemia, macrocytic, secondary to chronic renal failure. 6. Thrombocytopenia. 7. History of atrial fibrillation, chronic, paroxysmal. 8. History of asthma, chronic intermittent. 9. Diabetes mellitus,type 2. 10.Gastroesophageal reflux disease. 11.Hypertension. 12.History of degenerative joint disease. 13.History of rheumatoid arthritis. 14.History of seizure disorder. 15.History of mineral bone disease. 16.Chronic anemia secondary to renal failure. 17.History of diabetic retinopathy, legally blind. 18.History of chronic peripheral neuropathy. 19.History of bilateral foot wounds. 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 21.History of chronic back pain. 22.History of seizure disorder. 23.History of bilateral cataract surgery. 24.History of anxiety, depression. 25.Remote history of nicotine dependence. 26.Obesity with body mass index of 33.5. 27.FULL CODE. RECOMMENDATIONS AND DISCUSSION: In this 69-year-old gentleman who presented with multiple complex medical issues, we will monitor the patient closely. We will for 24 hours. Otherwise, continue with the diuretics. Continue hemodialysis. Dr. Reeder is following the pleural effusion closely. Continue the rest of the medications. The patient seems to be feeling slightly better today. Monitor blood sugars closely. Increase ambulation. Cultures. We would also continue with the wound care per Infectious Disease. Guarded prognosis because of multiple complex medical issues. Further recommendations to follow. MMODL / IJN: [id number] / MTDD
[2019-06-17 20:29] LABS: Glucose,Whole Blood 259 mg/dL (75-99)
[2019-06-17] MEDS: APIXABAN 5 MG TAB PO SCH (20:46)
[2019-06-17] MEDS: INSULIN DETEMIR (LEVEMIR) 100 UNIT/ML SYR SQ SCH (22:15)
[2019-06-18 06:58] LABS: Glucose,Whole Blood 205 mg/dL (75-99)
[2019-06-18] MEDS: ALBUTEROL NEBULIZED 2.5 MG/3 ML INHALATION SCH ×4 (07:08→21:50)
[2019-06-18] MEDS: SYMBICORT 160-4.5 MCG INHALER INHALATION SCH ×2 (07:10→21:50)
[2019-06-18 07:28] LABS: Anisocytosis Slight; Basophils % (A) 1 %; Eosinophils # (A) 0.3 k/uL (0-0.7); Eosinophils % (A) 5 %; HCT 35.1 % (39.0-53.0); HGB 10.6 gm/dL (13.0-17.5); Hypochromasia Moderate; Lymphocytes # (A) 0.5 k/uL (1.0-4.8); Lymphocytes % (A) 9 %; MCH 31.7 pg (25.0-35.0); MCHC 30.2 g/dL (31.0-37.0); MCV 105.1 fL (80.0-100.0); Macrocytosis Moderate; Mean Platelet Volume 9.2; Monocytes # (A) 0.4 k/uL (0-1.0); Monocytes % (A) 7 %; Neutrophils # (A) 4.4 k/uL (1.3-7.7); Neutrophils % (A) 76 %; Platelet Count 108 k/uL (150-450); RBC 3.34 m/uL (4.30-5.90); RDW 16.6 % (11.5-15.5); WBC 5.7 k/uL (3.8-10.6)
[2019-06-18] MEDS: APIXABAN 5 MG TAB PO SCH (07:31)
[2019-06-18] MEDS: PANTOPRAZOLE 40 MG TABLET PO SCH (07:32)
[2019-06-18] MEDS: FENOFIBRATE 160 MG TAB PO SCH (07:33)
[2019-06-18] MEDS: ASPIRIN 81 MG PO SCH (07:33)
[2019-06-18] MEDS: CALCIUM ACETATE 667 MG TAB PO SCH ×3 (07:33→20:14)
[2019-06-18] MEDS: METOPROLOL TARTRATE 50 MG TAB PO SCH ×2 (07:33→20:15)
[2019-06-18] MEDS: MULTIVITAMINS, THERA 1 EACH TAB PO SCH (07:33)
[2019-06-18] MEDS: INSULIN ASPART (NovoLOG) 100 UNIT/ML VIAL SQ SCH ×4 (07:34→20:15)
[2019-06-18] MEDS: CALCIUM CARB-MAG CARB-FOLIC 1 EACH TAB PO SCH ×2 (07:39→20:14)
[2019-06-18] MEDS: FOLIC ACID-VIT B COMPLEX-VIT C 1 CAP PO SCH (07:39)
[2019-06-18] MEDS: FUROSEMIDE 10 MG/ML 10 ML VIAL IV SCH ×2 (07:40→20:15)
[2019-06-18 08:20] LABS: Calcium 9.3 mg/dL (8.4-10.2); Potassium 4.7 mmol/L (3.5-5.1)
--- NOTE | 2019-06-18 10:35 | P.PN ---
Subjective Patient is seen in follow-up for end-stage renal disease. Dyspnea improved. No chest pain. Oral intake is good. Vital signs are stable. General: The patient appeared well nourished and normally developed. HEENT: Head exam is unremarkable. Neck is without jugular venous distension. LUNGS: Lungs are clear to auscultation and percussion. Breath sounds decreased. HEART: Rate and Rhythm are regular. First and second heart sounds normal. No murmurs, rubs or gallops. ABDOMEN: Abdominal exam reveals normal bowel sounds. Non-tender and non-diste nded. No evidence of peritonitis. EXTREMITITES: 2+ edema. No drainage. Objective - Vital Signs Vital signs: Vital Signs Temp 97.5 F L 06/18/19 07:00 Pulse 74 06/18/19 07:19 Resp 18 06/18/19 07:00 BP 151/67 06/18/19 07:00 Pulse Ox 97 06/18/19 07:00 Intake & Output 06/17/19 06/18/19 06/18/19 18:59 06:59 18:59 Intake Total 410 Output Total 2220 100 Balance -1810 -100 Weight 125.7 kg Intake: Intake, IV Titration 50 Amount ceFAZolin 1,000 mg In 50 Sodium Chloride 0.9% 50 ml @ 100 mls/hr IVPB Q12H [facility] Rx#:[id number] Oral 360 Output: Urine 220 100 Hemodialysis 2000 Other: Voiding Method Urinal Urinal - Labs CBC & Chem 7: 06/18/19 06:29 06/18/19 06:29 Labs: Abnormal Lab Results - Last 24 Hours (Table) 06/17/19 06/17/19 06/17/19 Range/Units 11:28 16:45 20:22 RBC (4.30-5.90) m/uL Hgb (13.0-17.5) gm/dL Hct (39.0-53.0) % MCV (80.0-100.0) fL MCHC (31.0-37.0) g/dL RDW (11.5-15.5) % Plt Count (150-450) k/uL Lymphocytes # (1.0-4.8) k/uL BUN (9-20) mg/dL Creatinine (0.66-1.25) mg/dL Glucose (74-99) mg/dL POC Glucose (mg/dL) 195 H 196 H 259 H (75-99) mg/dL 06/18/19 06/18/19 06/18/19 Range/Units 06:29 06:29 06:57 RBC 3.34 L (4.30-5.90) m/uL Hgb 10.6 L (13.0-17.5) gm/dL Hct 35.1 L (39.0-53.0) % MCV 105.1 H (80.0-100.0) fL MCHC 30.2 L (31.0-37.0) g/dL RDW 16.6 H (11.5-15.5) % Plt Count 108 L (150-450) k/uL Lymphocytes # 0.5 L (1.0-4.8) k/uL BUN 54 H (9-20) mg/dL Creatinine 6.37 H (0.66-1.25) mg/dL Glucose 225 H (74-99) mg/dL POC Glucose (mg/dL) 205 H (75-99) mg/dL Microbiology - Last 24 Hours (Table) 06/16/19 21:19 Blood Culture - Preliminary Blood No Growth after 24 hours Assessment and Plan Plan: Assessment: 1. End-stage renal disease maintained on hemodialysis on Sunday schedule. 2. Volume overload. Improving with ultrafiltration. 3. Left-sided pleural effusion. 4. Hypertension with chronic kidney disease. Stable. 5. Lower extremity wounds maintained on antibiotics. 6. Chronic kidney disease mineral bone disease maintained on phosphate binders. Plan: Hemodialysis today with goal 3-4 L ultrafiltration. Low-salt diet and 1500 mL fluid restriction.
[2019-06-18 11:24] LABS: Glucose,Whole Blood 213 mg/dL (75-99)
--- NOTE | 2019-06-18 12:20 | P.PN ---
Subjective This is a pleasant 69 years old male with past medical history of end-stage renal disease on hemodialysis, atrial fibrillation, asthma, heart failure, diabetes mellitus, GERD, hypertension, osteoarthritis, rheumatoid arthritis, seizure disorder. Patient is being resenting with respiratory distress thought to fluid overload from acute CHF exacerbation with systolic dysfunction, also he has bilateral lower extremity cellulitis and diabetic foot ulcers, thought due to chronic venous lower extremity ulcers, also with left pleural effusion and fo llowed closely by cardiology and pulmonary team, he underwent hemodialysis to remove fluid, his been on Lasix 80 mg IV twice daily as well as cefazolin intravenously, he is on Eliquis 2.5 mg Objective - Vital Signs Vital signs: Vital Signs Temp 97.5 F L 06/18/19 07:00 Pulse 74 06/18/19 11:19 Resp 18 06/18/19 07:34 BP 151/67 06/18/19 07:00 Pulse Ox 97 06/18/19 07:00 Intake & Output 06/17/19 06/18/19 06/18/19 18:59 06:59 18:59 Intake Total 410 Output Total 2220 100 Balance -1810 -100 Weight 125.7 kg 125.7 kg Intake: Intake, IV Titration 50 Amount ceFAZolin 1,000 mg In 50 Sodium Chloride 0.9% 50 ml @ 100 mls/hr IVPB Q12H [facility] Rx#:[id number] Oral 360 Output: Urine 220 100 Hemodialysis 2000 Other: Voiding Method Urinal Urinal - Labs CBC & Chem 7: 06/18/19 06:29 06/18/19 06:29 Labs: Abnormal Lab Results - Last 24 Hours (Table) 06/17/19 06/17/19 06/18/19 Range/Units 16:45 20:22 06:29 RBC 3.34 L (4.30-5.90) m/uL Hgb 10.6 L (13.0-17.5) gm/dL Hct 35.1 L (39.0-53.0) % MCV 105.1 H (80.0-100.0) fL MCHC 30.2 L (31.0-37.0) g/dL RDW 16.6 H (11.5-15.5) % Plt Count 108 L (150-450) k/uL Lymphocytes # 0.5 L (1.0-4.8) k/uL BUN (9-20) mg/dL Creatinine (0.66-1.25) mg/dL Glucose (74-99) mg/dL POC Glucose (mg/dL) 196 H 259 H (75-99) mg/dL 06/18/19 06/18/19 06/18/19 Range/Units 06:29 06:57 11:23 RBC (4.30-5.90) m/uL Hgb (13.0-17.5) gm/dL Hct (39.0-53.0) % MCV (80.0-100.0) fL MCHC (31.0-37.0) g/dL RDW (11.5-15.5) % Plt Count (150-450) k/uL Lymphocytes # (1.0-4.8) k/uL BUN 54 H (9-20) mg/dL Creatinine 6.37 H (0.66-1.25) mg/dL Glucose 225 H (74-99) mg/dL POC Glucose (mg/dL) 205 H 213 H (75-99) mg/dL Microbiology - Last 24 Hours (Table) 06/16/19 21:19 Blood Culture - Preliminary Blood No Growth after 24 hours Assessment and Plan Assessment: Shortness of breath secondary to fluid overload, currently completely resolved Bilateral dry gangrene of the toes and left lower extremity venous ulcer ESRD on hemodialysis Sunday and Sunday left upper extremity fistula Elevated troponin level likely due to volume overload. 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 Peripheral vascular disease with bilateral toe dry gangrene. Vascular surgery recommends outpatient follow-up. Paroxysmal atrial fibrillation. 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 Chronic back pain Anxiety/depression Previous history of smoking GERD History of rheumatoid arthritis Plan: This is a pleasant 69 years old male who presents with fluid overload and left pleural effusion, continue with diuretics, continue with hemodialysis, follow-up recommendation by pulmonary and nephrology services. Consult cardiology, continue with aspirin and once care of besides the cefazolin. Labs and medication were reviewed.. Continue same treatment. Continue with symptomatic treatment. Resume home medication. Monitor lytes and vitals. DVT and GI prophylaxis. Further recommendations of the clinical course of the patient DVT prophylaxis: Eliquis GI Prophylaxis: Protonix Prognosis is guarded
--- NOTE | 2019-06-18 13:58 | P.PN ---
Progress Note - Text Progress Note Date: 06/18/19 This is an amendment on the documentation on this patient, patient had chronic hypoxic respiratory failure, multifactorial as noted on my documentation. His chronic hypoxic arrest or failure is not acute.
[2019-06-18] MEDS ORDERED: GELATIN SPONGE,ABSORB (LARGE) 1 EACH SPONGE ONE (16:00)
[2019-06-18 16:34] LABS: Glucose,Whole Blood 150 mg/dL (75-99)
[2019-06-18] MEDS ORDERED: DESMOPRESSIN ACETATE 4 MCG/ML VIAL (MDV) IVPB ONE (16:46)
--- NOTE | 2019-06-18 16:46 | P.CONS ---
History of Present Illness - Reason for Consult Consult date: 06/17/19 Cellulitis Requesting physician: Germain Dowd - Chief Complaint Bilateral leg swelling and shortness of breath x few days - History of Present Illness Patient is a 69-year-old male with a past medical history significant for end-stage renal disease on hemodialysis Sunday patient presenting to the ER at [facility] with checkup is increased shortness of breath also with increasing swelling in the leg patient better and he was evaluated the wound care center he was noticed to have more blistering and superficial wound for the patient advised to go to the hospital for cellulitis and local wound care, on arrival to the hospital the patient has been afebrile and his white count has been normal and the patient did have a chest x-ray we did shows moderate slightly increasing left pleural effusion with associated airspace disease likely compressive atelectasis the patient denies significant cough or sputum production patient has been in the hospital with fluid overload and bilateral lower extremity cellulitis patient was started on cefazolin infectious disease was consulted for further recommendations regarding antibiotic therapy Review of Systems Positive point has been mentioned in the HPI rest of the systems are negative Past Medical History Past Medical History: Atrial Fibrillation, Asthma, Heart Failure, Diabetes Mellitus, Dialysis, Eye Disorder, GERD/Reflux, Hypertension, Osteoarthritis (OA), Pneumonia, Renal Disease, Rheumatoid Arthritis (RA), Seizure Disorder Additional Past Medical History / Comment(s): ESRD with hemodialysis, mineral bone disease, chronic anemia, IDDM type II, diabetic retinopathy-"legally blin d", chronic neuropathy occasionally in toes bilateral feet and left leg, bilateral lower leg edema, cellulitis bilateral lower legs, past leg/foot wounds and currently has left medial leg wounds that have scabbed over and no longer goes to [facility], paroxysmal Afib, 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 History of Any Multi-Drug Resistant Organisms: None Reported Past Surgical History: Hernia Repair, Orthopedic Surgery Additional Past Surgical History / Comment(s): Bilateral cataract surgery, insertion dialysis catheter left arm then had a procedure done to dialysis catheter at [facility]-cannot recall exactly what was done, PICC line insertion/removed, bilateral inguinal hernina repairs, colonoscopy/polypectomy, R shoulder rotator cuff repair, debridements bilateral feet. Past Anesthesia/Blood Transfusion Reactions: No Reported Reaction Additional Past Anesthesia/Blood Transfusion Reaction / Comm: Pt received blood in past without reaction. Past Psychological History: Anxiety, Depression Additional Psychological History / Comment(s): lives with his and family home. 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 No travel since his days. no animals in the home Smoking Status: Former smoker Past Alcohol Use History: None Reported Additional Past Alcohol Use History / Comment(s): Pt started smoking in 1963 and quit in 1987. During that time, a pack of cigarettes would last 1 week. Past Drug Use History: None Reported - Past Family History Mother Family Medical History: Diabetes Mellitus Father Family Medical History: Cancer Additional Family Medical History / Comment(s): Metastatic cancer. Pt cannot recall primary. Medications and Allergies Home Medications Medication Instructions Recorded Confirmed Type Etanercept [Enbrel] 50 mg SQ LUU 06/12/14 06/16/19 History NIFEdipine [NIFEdipine ER] 60 mg PO DAILY 06/12/14 06/16/19 History Aspirin EC [Ecotrin Low Dose] 81 mg PO DAILY 07/31/18 06/16/19 History Gemfibrozil [Lopid] 600 mg PO BID 07/31/18 06/16/19 History Budesonide-Formot 160-4.5 Mcg 2 puff INHALATION RT-BID 02/26/19 06/16/19 History [Symbicort 160-4.5 Mcg Inhaler] Calcium Acetate [PhosLo] 1,334 mg PO TID-W/MEALS 02/26/19 06/16/19 History Magnebind 250/300mg 1 tab PO BID-W/MEALS 02/26/19 06/16/19 History Metoprolol Tartrate [Lopressor] 50 mg PO BID 02/26/19 06/16/19 History Omeprazole 40 mg PO DAILY 02/26/19 06/16/19 History Prorenal + D 1 tab PO DAILY 02/26/19 06/16/19 History Albuterol Nebulized [Ventolin 2.5 mg INHALATION RT-QID 03/17/19 06/16/19 History Nebulized] Famotidine [Pepcid] 20 mg PO BID #30 tablet 03/20/19 06/16/19 Rx Furosemide [Lasix] 80 mg PO BID@0900,1600 tab 03/20/19 06/16/19 Rx ALPRAZolam [Xanax] 0.25 mg PO TID PRN 3 Days #9 tab 05/17/19 06/16/19 Rx Insulin Glargine,Hum.rec.anlog 17 unit SQ HS 06/16/19 06/16/19 History [Lantus Solostar] Insulin Lispro [humaLOG Kwikpen] See Protocol SQ ACHS 06/16/19 06/16/19 History Allergies Allergy/AdvReac Type Severity Reaction Status Date / Time sulfamethoxazole AdvReac Unknown Nausea & Verified 06/16/19 15:19 [From Bactrim] Vomiting trimethoprim [From Bactrim] AdvReac Unknown Nausea & Verified 06/16/19 15:19 Vomiting Physical Exam Vitals: Vital Signs Temp Pulse Pulse Resp BP Pulse Ox 06/17/19 20:05 75 06/17/19 19:45 75 06/17/19 19:08 97.7 F 75 15 156/74 95 06/17/19 18:00 97.9 F 79 17 152/59 96 06/17/19 16:48 68 06/17/19 16:37 64 06/17/19 15:45 65 18 06/17/19 15:15 97.4 F L 65 18 134/60 95 06/17/19 14:26 97.9 F 68 18 129/66 06/17/19 11:59 64 18 06/17/19 11:30 68 06/17/19 11:18 68 06/17/19 11:08 98.0 F 64 18 160/75 99 06/17/19 08:00 98.0 F 67 18 159/71 99 06/17/19 07:53 64 06/17/19 07:42 64 06/17/19 03:52 66 18 06/17/19 03:51 97.4 F L 66 18 147/69 98 06/17/19 00:00 97.7 F 63 18 157/75 95 Intake and Output 06/17/19 06/17/19 06/18/19 14:59 22:59 06:59 Intake Total 240 170 Output Total 1999 320 Balance -1760 -150 Intake: Intake, IV Titration 50 Amount ceFAZolin 1,000 mg In 50 Sodium Chloride 0.9% 50 ml @ 100 mls/hr IVPB Q12H [facility] Rx#:[id number] Oral 240 120 Output: Urine 320 Hemodialysis 2000 Other: Voiding Method Urinal Urinal Weight 125.7 kg GENERAL DESCRIPTION: Elderly male up in the chair, no distress. No tachypnea or accessory muscle of respiration use. HEENT: Shows Pallor , no scleral icterus. Oral mucous membrane is dry. No ph aryngeal erythema or thrush NECK: Trachea central, no thyromegaly. LUNGS: Unlabored breathing. Clear to auscultation anteriorly. No wheeze or crackle. HEART: S1, S2, regular rate and rhythm. No loud murmur ABDOMEN: Soft, no tenderness , guarding or rigidity, no organomegaly EXTREMITIES: Bilateral estimated diffuse swelling and superficial ulceration from ruptured blister surrounding redness no foul-smelling drainage SKIN: No rash, no masses palpable. NEUROLOGICAL: The patient is awake, alert, oriented x3, mood and affect normal. Results CBC & Chem 7: 06/18/19 06:29 06/18/19 06:29 Labs: Abnormal Lab Results - Last 24 Hours (Table) 06/17/19 06/17/19 06/17/19 Range/Units 05:36 05:36 06:21 RBC 3.34 L (4.30-5.90) m/uL Hgb 10.7 L (13.0-17.5) gm/dL Hct 35.0 L (39.0-53.0) % MCV 104.8 H (80.0-100.0) fL MCHC 30.6 L (31.0-37.0) g/dL RDW 16.8 H (11.5-15.5) % Plt Count 106 L (150-450) k/uL Lymphocytes # 0.7 L (1.0-4.8) k/uL BUN 49 H (9-20) mg/dL Creatinine 5.47 H (0.66-1.25) mg/dL Glucose 159 H (74-99) mg/dL POC Glucose (mg/dL) 177 H (75-99) mg/dL 06/17/19 06/17/19 06/17/19 Range/Units 11:28 16:45 20:22 RBC (4.30-5.90) m/uL Hgb (13.0-17.5) gm/dL Hct (39.0-53.0) % MCV (80.0-100.0) fL MCHC (31.0-37.0) g/dL RDW (11.5-15.5) % Plt Count (150-450) k/uL Lymphocytes # (1.0-4.8) k/uL BUN (9-20) mg/dL Creatinine (0.66-1.25) mg/dL Glucose (74-99) mg/dL POC Glucose (mg/dL) 195 H 196 H 259 H (75-99) mg/dL Microbiology - Last 24 Hours (Table) 06/16/19 21:19 Blood Culture - Preliminary Blood No Growth after 24 hours Assessment and Plan Assessment: 1-patient with bilateral lower extremity cellulitis in this patient who did have evidence of fluid overload with diffuse swelling and a component of superficial ulceration from ruptured blisters likely streptococcal cellulitis (1) Bilateral lower leg cellulitis Current Visit: Yes Status: Acute Code(s): L03.116 - CELLULITIS OF LEFT LOWER LIMB; L03.115 - CELLULITIS OF RIGHT LOWER LIMB SNOMED Code(s): 087473482 Plan: 1-cefazolin 1 g every 12 hours and was adjusted to the kidney function 2- Aquacel silver to the open leg wounds followed by Lg wrap from just above the toe to below the knee to be changed every 48 hour We will follow on clinical condition and cultures to further adjust medication if needed Thank you for this consultation will follow this patient with you Time with Patient: Greater than 30
[2019-06-18] MEDS ORDERED: DESMOPRESSIN ACETATE IVPB ONE (18:00)
[2019-06-18] MEDS ORDERED: SODIUM CHLORIDE 0.9% IVPB ONE (18:00)
--- NOTE | 2019-06-18 19:05 | PN ---
PROGRESS NOTE DATE OF SERVICE: 06/18/2019 REASON FOR FOLLOWUP: Bilateral lower extremity cellulitis. INTERVAL HISTORY: The patient is currently afebrile. The patient has been breathing comfortably. Denies having any chest pain or cough. Still has significant swelling in the legs with minimal redness. No worsening. No abdominal pain or diarrhea. PHYSICAL EXAMINATION: Blood pressure 135/55 with a pulse of 51, temperature 97.7. He is 98% on 2 L nasal cannula. General description is an elderly male up in the chair in no distress. RESPIRATORY SYSTEM: Unlabored breathing. Clear to auscultation anteriorly. HEART: S1, S2. Regular rate and rhythm. ABDOMEN: Soft. No tenderness. Legs are currently wrapped up. No obvious drainage on the dressing. LABS: Hemoglobin is 10.6, white count 5.7. Creatinine 6.37. Blood culture has been negative. DIAGNOSTIC IMPRESSION AND PLAN: Patient with bilateral lower extremity cellulitis in this patient who did have diffuse swelling and redness. At this point, continue Cefazolin. Local wound care to continue per the wound care team. Monitor clinical course closely. MMODL / IJN: [id number] /
[2019-06-18 20:10] LABS: Glucose,Whole Blood 215 mg/dL (75-99)
[2019-06-18] MEDS: INSULIN DETEMIR (LEVEMIR) 100 UNIT/ML SYR SQ SCH (20:15)
[2019-06-18 23:07] LABS: Anisocytosis Slight; Basophils % (A) 1 %; Eosinophils # (A) 0.2 k/uL (0-0.7); Eosinophils % (A) 4 %; HCT 34.1 % (39.0-53.0); HGB 10.5 gm/dL (13.0-17.5); Hypochromasia Moderate; Lymphocytes # (A) 0.5 k/uL (1.0-4.8); Lymphocytes % (A) 9 %; MCH 32.2 pg (25.0-35.0); MCHC 30.8 g/dL (31.0-37.0); MCV 104.5 fL (80.0-100.0); Macrocytosis Moderate; Mean Platelet Volume 9.3; Monocytes # (A) 0.3 k/uL (0-1.0); Monocytes % (A) 7 %; Neutrophils # (A) 3.9 k/uL (1.3-7.7); Neutrophils % (A) 77 %; Platelet Count 107 k/uL (150-450); RBC 3.26 m/uL (4.30-5.90); RDW 16.4 % (11.5-15.5); WBC 5.1 k/uL (3.8-10.6)
[2019-06-19 06:51] LABS: Glucose,Whole Blood 266 mg/dL (75-99)
[2019-06-19] MEDS: SYMBICORT 160-4.5 MCG INHALER INHALATION SCH (07:36)
[2019-06-19] MEDS: ALBUTEROL NEBULIZED 2.5 MG/3 ML INHALATION SCH ×2 (07:36→10:57)
[2019-06-19] MEDS: FUROSEMIDE 10 MG/ML 10 ML VIAL IV SCH (07:37)
[2019-06-19] MEDS: FENOFIBRATE 160 MG TAB PO SCH (07:38)
[2019-06-19] MEDS: CALCIUM ACETATE 667 MG TAB PO SCH ×2 (07:38→12:19)
[2019-06-19] MEDS: INSULIN ASPART (NovoLOG) 100 UNIT/ML VIAL SQ SCH ×2 (07:38→12:19)
[2019-06-19] MEDS: PANTOPRAZOLE 40 MG TABLET PO SCH (07:38)
[2019-06-19] MEDS: METOPROLOL TARTRATE 50 MG TAB PO SCH (07:38)
[2019-06-19] MEDS: ASPIRIN 81 MG PO SCH (07:38)
[2019-06-19 07:39] LABS: Anisocytosis Slight; Basophils % (A) 1 %; Eosinophils # (A) 0.2 k/uL (0-0.7); Eosinophils % (A) 5 %; HCT 34.4 % (39.0-53.0); HGB 10.2 gm/dL (13.0-17.5); Hypochromasia Moderate; Lymphocytes # (A) 0.4 k/uL (1.0-4.8); Lymphocytes % (A) 9 %; MCH 31.1 pg (25.0-35.0); MCHC 29.6 g/dL (31.0-37.0); MCV 105.2 fL (80.0-100.0); Macrocytosis Moderate; Mean Platelet Volume 8.9; Monocytes # (A) 0.3 k/uL (0-1.0); Monocytes % (A) 7 %; Neutrophils # (A) 3.5 k/uL (1.3-7.7); Neutrophils % (A) 76 %; Platelet Count 108 k/uL (150-450); RBC 3.27 m/uL (4.30-5.90); RDW 16.5 % (11.5-15.5); WBC 4.6 k/uL (3.8-10.6)
[2019-06-19] MEDS: CALCIUM CARB-MAG CARB-FOLIC 1 EACH TAB PO SCH (07:39)
[2019-06-19] MEDS: FOLIC ACID-VIT B COMPLEX-VIT C 1 CAP PO SCH (07:39)
[2019-06-19 07:49] LABS: Calcium 9.2 mg/dL (8.4-10.2); Potassium 4.9 mmol/L (3.5-5.1)
[2019-06-19 08:00] VITALS: BP 130/68; RESP 17; TEMP 98.1
--- NOTE | 2019-06-19 09:02 | P.PN ---
Subjective Patient is seen in follow-up for end-stage renal disease. Dyspnea improved. No chest pain. Oral intake is good. Patient was started on eliquis this admission and developed bleeding from his access site during dialysis yesterday. This was staged by vascular surgery. I had also given him a dose of IV DDAVP. No further bleeding. Hemoglobin stable. Vital signs are stable. General: The patient appeared well nourished and normally developed. HEENT: Head exam is unremarkable. Neck is without jugular venous distension. LUNGS: Lungs are clear to auscultation and percussion. Breath sounds decreased. HEART: Rate and Rhythm are regular. First and second heart sounds normal. No murmurs, rubs or gallops. ABDOMEN: Abdominal exam reveals normal bowel sounds. Non-tender and non- distended. No evidence of peritonitis. EXTREMITITES: 2+ edema. No drainage. Objective - Vital Signs Vital signs: Vital Signs Temp 98.1 F 06/19/19 07:00 Pulse 74 06/19/19 07:48 Resp 17 06/19/19 07:00 BP 130/68 06/19/19 07:00 Pulse Ox 100 06/19/19 07:40 Intake & Output 06/18/19 06/19/19 06/19/19 18:59 06:59 18:59 Intake Total 100 20 Output Total 1999 Balance -1979 Weight 125.7 kg 122.9 kg Intake: Intake, IV Titration 100 Amount ceFAZolin 1,000 mg In 100 Sodium Chloride 0.9% 50 ml @ 100 mls/hr IVPB Q12H [facility] Rx#:[id number] Oral 20 Output: Hemodialysis 1999 Other: Voiding Method Urinal - Labs CBC & Chem 7: 06/19/19 06:42 06/19/19 06:42 Labs: Abnormal Lab Results - Last 24 Hours (Table) 06/18/19 06/18/19 06/18/19 Range/Units 11:23 16:33 20:07 RBC (4.30-5.90) m/uL Hgb (13.0-17.5) gm/dL Hct (39.0-53.0) % MCV (80.0-100.0) fL MCHC (31.0-37.0) g/dL RDW (11.5-15.5) % Plt Count (150-450) k/uL Lymphocytes # (1.0-4.8) k/uL BUN (9-20) mg/dL Creatinine (0.66-1.25) mg/dL Glucose (74-99) mg/dL POC Glucose (mg/dL) 213 H 150 H 215 H (75-99) mg/dL 06/18/19 06/19/19 06/19/19 Range/Units 22:46 06:42 06:42 RBC 3.26 L 3.27 L (4.30-5.90) m/uL Hgb 10.5 L 10.2 L (13.0-17.5) gm/dL Hct 34.1 L 34.4 L (39.0-53.0) % MCV 104.5 H 105.2 H (80.0-100.0) fL MCHC 30.8 L 29.6 L (31.0-37.0) g/dL RDW 16.4 H 16.5 H (11.5-15.5) % Plt Count 107 L 108 L (150-450) k/uL Lymphocytes # 0.5 L 0.4 L (1.0-4.8) k/uL BUN 51 H (9-20) mg/dL Creatinine 5.52 H (0.66-1.25) mg/dL Glucose 278 H (74-99) mg/dL POC Glucose (mg/dL) (75-99) mg/dL 06/19/19 Range/Units 06:49 RBC (4.30-5.90) m/uL Hgb (13.0-17.5) gm/dL Hct (39.0-53.0) % MCV (80.0-100.0) fL MCHC (31.0-37.0) g/dL RDW (11.5-15.5) % Plt Count (150-450) k/uL Lymphocytes # (1.0-4.8) k/uL BUN (9-20) mg/dL Creatinine (0.66-1.25) mg/dL Glucose (74-99) mg/dL POC Glucose (mg/dL) 266 H (75-99) mg/dL Microbiology - Last 24 Hours (Table) 06/16/19 21:19 Blood Culture - Preliminary Blood No Growth after 48 hours Assessment and Plan Plan: Assessment: 1. End-stage renal disease maintained on hemodialysis on Sunday schedule. 2. Volume overload. Improving with ultrafiltration. 3. Left-sided pleural effusion. 4. Hypertension with chronic kidney disease. Stable. 5. Lower extremity wounds maintained on antibiotics. 6. Chronic kidney disease mineral bone disease maintained on phosphate binders. 7. Bleeding at the dialysis access site from anticoagulation. Status post IV DDAVP and stitch by vascular surgery. Resolved. Plan: Hemodialysis tomorrow with goal 3-4 L ultrafiltration. Low-salt diet and 1500 mL fluid restriction. Eliquis has been discontinued.
[2019-06-19 11:06] VITALS: PULSE 70
[2019-06-19 11:37] LABS: Glucose,Whole Blood 195 mg/dL (75-99)
[2019-06-19] MEDS: MULTIVITAMINS, THERA 1 EACH TAB PO SCH (12:19)
--- NOTE | 2019-06-19 12:23 | P.CRDCN ---
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 He follows in the office with Dr. Haq. We have been asked to see in consultation for heart failure. He presented to the hospital 3 days ago with symptoms of shortness of breath and increase lower extremity swelling. He undergoes hemodialysis MWF, prior to coming in his last dialysis was Sunday. He didn't go to dialysis on Sunday as scheduled. He is seen and examined sitting up in the chair in no acute distress. Overall his breathing has improved since admission. He continues to have lower extremity edema. He has been maintained on IV lasix since admission as well as undregoing dialysis per nephrology. He also has a chronic left pleural effusion that is unchanged in size since January. Pulmonary is also following. He denies chest pain, dizziness or palpitations. He states Dr. Haq has taken him off anti-coagu lation due to frequent bleeding from his fistula. Dr. Griffith has been in to see him and placed sutures as well as a pressure dressing to his left upper arm. Most recent echocardiogram obtained May 2019 reveals impaired LV systolic function with ejection fraction 40-45%, mild MR, mild TR and mild pulmonary hypertension with an RVSP of 39 mmHg. DIAGNOSTICS EKG reveals atrial fibrillation with non-specific flattened T-waves, rate of 69 and poor R-wave progression. Chest xray reveals similar moderate left pleural effusion and resolved pulmonary vascular congestion. Chest ultrasound reveals left pleural effusion with pocket size of 8.2 cm. Laboratory reviewed, WBC 4.6, hgb 10.2, plt 108, sodium 138, potassium 4.9, creatinine 5.52, NTproBNP 57,00 and cardiac enzymes negative x1. Current cardiac medications include nifedipine 60 mg daily, Lopressor 50 mg twice a day, Lopid 600 mg twice a day, Lasix 80 mg twice a day and aspirin 81 mg daily. REVIEW OF SYSTEMS At the time of my exam: CONSTITUTIONAL: Denies fever or chills. CARDIOVASCULAR: Denies chest pain, shortness of breath, orthopnea, PND or palpitations. RESPIRATORY: Denies cough. GASTROINTESTINAL: Denies abdominal pain, diarrhea, constipation, nausea or vomiting. MUSCULOSKELETAL: Denies myalgias. NEUROLOGIC: Denies numbness, tingling or weakness. ENDOCRINE: Denies fatigue, weight change, polydipsia or polyurina. GENITOURINARY: Denies burning, hematuria or urgency with micturation. HEMATOLOGIC: Denies history of anemia or bleeding. PHYSICAL EXAMINATION Blood pressure 130/68 heart rate 74 afebrile and maintaining oxygen saturation on nasal cannula. CONSTITUTIONAL: No apparent distress. HEENT: Head is normocephalic. Pupils are equal, round. Sclerae anicteric. Mucous membranes of the mouth are moist. No JVD. No carotid bruit. CHEST EXAMINATION: Lungs are clear to auscultation. No chest wall tenderness is noted on palpation or with deep breathing. Diminished on the left. HEART EXAMINATION: Irregular rate and rhythm. S1, S2 heard. No murmurs, gallops or rub. ABDOMEN: Soft, nontender. Positive bowel sounds. EXTREMITIES: Bilateral lower extremity edema, TAYO wraps in place and no calf tenderness. NEUROLOGIC EXAMINATION: Patient is awake, alert and oriented. ASSESSMENT Fluid overload secondary to renal failure Bleeding from fistula Anemia of chronic disease Acute on chronic systolic heart failure Chronic persistent atrial fibrillation Hypertension Diabetes mellitus Dyslipidemia PLAN Currently maintained on IV lasix and undergoing regular dialysis. Breathing is stable and he is free of symptoms of angina. Close follow up with Dr. Haq recommended upon discharge. Agree with discontinuation of anti-coagulation, further discussion regarding this can take place with Dr. Haq. Thank you kindly for this consultation. Nurse Practitioner note has been reviewed, I agree with a documented findings and plan of care. Patient was seen and examined. Past Medical History Past Medical History: Atrial Fibrillation, Asthma, Heart Failure, Diabetes Mellitus, Dialysis, Eye Disorder, GERD/Reflux, Hypertension, Osteoarthritis (OA), Pneumonia, Renal Disease, Rheumatoid Arthritis (RA), Seizure Disorder Additional Past Medical History / Comment(s): ESRD with hemodialysis, mineral bone disease, chronic anemia, IDDM type II, diabetic retinopathy-"legally blind", chronic neuropathy occasionally in toes bilateral feet and left leg, bilateral lower leg edema, cellulitis bilateral lower legs, past leg/foot wounds and currently has left medial leg wounds that have scabbed over and no longer goes to [facility], paroxysmal Afib, 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 History of Any Multi-Drug Resistant Organisms: None Reported Past Surgical History: Hernia Repair, Orthopedic Surgery Additional Past Surgical History / Comment(s): Bilateral cataract surgery, insertion dialysis catheter left arm then had a procedure done to dialysis catheter at [facility]-cannot recall exactly what was done, PICC line insertion/removed, bilateral inguinal hernina repairs, colonoscopy/polypectomy, R shoulder rotator cuff repair, debridements bilateral feet. Past Anesthesia/Blood Transfusion Reactions: No Reported Reaction Additional Past Anesthesia/Blood Transfusion Reaction / Comment(s): Pt received blood in past without reaction. Past Psychological History: Anxiety, Depression Additional Psychological History / Comment(s): lives with his and family home. 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 No travel since his days. no animals in the home Smoking Status: Former smoker Past Alcohol Use History: None Reported Additional Past Alcohol Use History / Comment(s): Pt started smoking in 1963 and quit in 1987. During that time, a pack of cigarettes would last 1 week. Past Drug Use History: None Reported - Past Family History Mother Family Medical History: Diabetes Mellitus Father Family Medical History: Cancer Additional Family Medical History / Comment(s): Metastatic cancer. Pt cannot recall primary. Medications and Allergies Home Medications Medication Instructions Recorded Confirmed Type Etanercept [Enbrel] 50 mg SQ LUU 06/12/14 06/16/19 History NIFEdipine [NIFEdipine ER] 60 mg PO DAILY 06/12/14 06/16/19 History Aspirin EC [Ecotrin Low Dose] 81 mg PO DAILY 07/31/18 06/16/19 History Gemfibrozil [Lopid] 600 mg PO BID 07/31/18 06/16/19 History Budesonide-Formot 160-4.5 Mcg 2 puff INHALATION RT-BID 02/26/19 06/16/19 History [Symbicort 160-4.5 Mcg Inhaler] Calcium Acetate [PhosLo] 1,334 mg PO TID-W/MEALS 02/26/19 06/16/19 History Magnebind 250/300mg 1 tab PO BID-W/MEALS 02/26/19 06/16/19 History Metoprolol Tartrate [Lopressor] 50 mg PO BID 02/26/19 06/16/19 History Omeprazole 40 mg PO DAILY 02/26/19 06/16/19 History Prorenal + D 1 tab PO DAILY 02/26/19 06/16/19 History Albuterol Nebulized [Ventolin 2.5 mg INHALATION RT-QID 03/17/19 06/16/19 History Nebulized] Famotidine [Pepcid] 20 mg PO BID #30 tablet 03/20/19 06/16/19 Rx Furosemide [Lasix] 80 mg PO BID@0900,1600 tab 03/20/19 06/16/19 Rx ALPRAZolam [Xanax] 0.25 mg PO TID PRN 3 Days #9 tab 05/17/19 06/16/19 Rx Insulin Glargine,Hum.rec.anlog 17 unit SQ HS 06/16/19 06/16/19 History [Lantus Solostar] Insulin Lispro [humaLOG Kwikpen] See Protocol SQ ACHS 06/16/19 06/16/19 History Allergies Allergy/AdvReac Type Severity Reaction Status Date / Time sulfamethoxazole AdvReac Unknown Nausea & Verified 06/16/19 15:19 [From Bactrim] Vomiting trimethoprim [From Bactrim] AdvReac Unknown Nausea & Verified 06/16/19 15:19 Vomiting Physical Exam Vitals: Vital Signs Temp Pulse Pulse Resp BP Pulse Ox 06/19/19 07:48 74 06/19/19 07:40 70 100 06/19/19 07:00 98.1 F 66 17 130/68 99 06/19/19 00:06 97.6 F 75 14 136/69 96 06/18/19 22:01 72 06/18/19 21:50 72 06/18/19 19:25 97.6 F 72 16 126/56 100 06/18/19 19:03 97.9 F 68 20 128/69 06/18/19 16:35 61 17 06/18/19 14:49 97.7 F 61 17 135/55 98 06/18/19 11:19 74 06/18/19 11:05 78 Intake and Output 06/18/19 06/19/19 06/19/19 22:59 06:59 14:59 Intake Total 20 Output Total 1999 -1979 Intake: Oral 20 Output: Hemodialysis 1999 Other: Voiding Method Urinal Weight 122.9 kg Results 06/19/19 06:42 06/19/19 06:42 CBC 06/18/19 06/19/19 Range/Units 22:46 06:42 WBC 5.1 4.6 (3.8-10.6) k/uL RBC 3.26 L 3.27 L (4.30-5.90) m/uL Hgb 10.5 L 10.2 L (13.0-17.5) gm/dL Hct 34.1 L 34.4 L (39.0-53.0) % Plt Count 107 L 108 L (150-450) k/uL Comprehensive Metabolic Panel 06/19/19 Range/Units 06:42 Sodium 138 (137-145) mmol/L Potassium 4.9 (3.5-5.1) mmol/L Chloride 98 (98-107) mmol/L Carbon Dioxide 28 (22-30) mmol/L BUN 51 H (9-20) mg/dL Creatinine 5.52 H (0.66-1.25) mg/dL Glucose 278 H (74-99) mg/dL Calcium 9.2 (8.4-10.2) mg/dL Current Medications Generic Name Dose Route Start Last Admin Trade Name Freq PRN Reason Stop Dose Admin Acetaminophen 500 mg 06/16/19 18:37 Tylenol Tab PO Q6HR PRN Fever and/ or Pain Hydrocodone Bitart/Acetaminophen 1 each 06/16/19 18:37 Sterling 5-325 PO Q6HR PRN Pain Albuterol Sulfate 2.5 mg 06/16/19 20:00 06/19/19 07:36 Ventolin Nebulized INHALATION 2.5 mg RT-QID HAYDER Administration Alprazolam 0.25 mg 06/16/19 17:08 06/18/19 16:35 Xanax PO 0.25 mg TID PRN Administration anxiety Aspirin 81 mg 06/17/19 09:00 06/19/19 07:38 Aspirin PO 81 mg DAILY HAYDER Administration Budesonide/Formoterol Fumarate 2 puff 06/16/19 20:00 06/19/19 07:36 Symbicort 160-4.5 Mcg Inhaler INHALATION 2 puff RT-BID HAYDER Administration Ca Carbonate/Folic Ac/Mg Carbonate 1 each 06/16/19 17:30 06/19/19 07:39 Magnebind 400 PO 1 each BID-W/MEALS HAYDER Administration Calcium Acetate 1,334 mg 06/16/19 17:30 06/19/19 07:38 Phoslo PO 1,334 mg TID-W/MEALS HAYDER Administration Fenofibrate 160 mg 06/17/19 09:00 06/19/19 07:38 Lofibra PO 160 mg DAILY HAYDER Administration Furosemide 80 mg 06/17/19 00:00 06/19/19 07:37 Lasix IV 80 mg Q12HR HAYDER Administration Cefazolin Sodium 1,000 mg/ 50 mls @ 100 mls/hr 06/18/19 00:00 06/18/19 23:57 Sodium Chloride IVPB 100 mls/hr Q12H HAYDER Administration Insulin Aspart 0 unit 06/16/19 21:00 06/19/19 07:38 Novolog SQ 6 unit ACHS HAYDER Administration Protocol Insulin Detemir 17 unit 06/17/19 03:57 06/18/19 20:15 Levemir SQ 17 unit HS HAYDER Administration Metoprolol Tartrate 50 mg 06/16/19 21:00 06/19/19 07:38 Lopressor PO 50 mg BID HAYDER Administration Multivit/Ca Carb/B Cmplx/FA/Prenat 1 each 06/17/19 09:00 06/19/19 07:39 Nephrocaps PO 1 each DAILY HAYDER Administration Multivitamins 1 each 06/17/19 12:00 06/18/19 07:33 Theragran PO 1 each DAILY@1200 HAYDER Administration Nifedipine 60 mg 06/17/19 09:00 06/19/19 07:38 Procardia Xl PO 60 mg DAILY HAYDER Administration Pantoprazole Sodium 40 mg 06/17/19 07:30 06/19/19 07:38 Protonix PO 40 mg AC-[id number] HAYDER Administration Intake and Output 06/18/19 06/19/19 06/19/19 22:59 06:59 14:59 Intake Total 20 Output Total 1999 Intake: Oral 20 Output: Hemodialysis 1999 Other: Voiding Method Urinal Weight 122.9 kg 06/19/19 06:42 06/19/19 06:42
--- NOTE | 2019-06-19 12:31 | P.DS ---
Providers Date of admission: 06/16/19 14:00 Attending physician: Germain Dowd Consults: 06/16/19 14:00 Consult Physician Routine Consulting Provider: Janette Greenberg Consult Reason/Comments: Dialysis Do you want consulting provider notified?: Yes 06/16/19 18:34 Consult Physician Routine Consulting Provider: Renetta Reeder Consult Reason/Comments: pl effusion Do you want consulting provider notified?: Yes 06/16/19 18:37 Consult Physician Routine Consulting Provider: Whitney Hodges Consult Reason/Comments: cellulitis Do you want consulting provider notified?: Yes 06/18/19 12:18 Consult Physician Urgent Consulting Provider: Amanda Humphries Consult Reason/Comments: chf and a fib Do you want consulting provider notified?: Yes 06/18/19 19:16 Consult Physician Urgent Consulting Provider: Dawson Griffith Consult Reason/Comments: AV fistula bleeding during hemodialysis-[facility] informed Dr Griffith Do you want consulting provider notified?: Already Contacted Primary care physician: Nell Rosen Hospital Course: Diagnoses: Shortness of breath secondary to fluid overload, currently completely resolved bleeding from the AV fistula site secondary to Eliquis which was stopped Bilateral dry gangrene of the toes and left lower extremity venous ulcer ESRD on hemodialysis Sunday and Sunday left upper extremity fistula Elevated troponin level likely due to volume overload. Patient is evaluated by water server Uncontrolled hypertension, better controlled Acute on Chronic CHF with ejection fraction unknown Chronic bilateral lower extremity swelling due to venous stasis ulcers/ wounds. Peripheral vascular disease with bilateral toe dry gangrene. Vascular surgery recommends outpatient follow-up. Paroxysmal atrial fibrillation. patient could not tolerate Eliquis. 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 Chronic back pain Anxiety/depression Previous history of smoking GERD History of rheumatoid arthritis Hospital Course: This is a pleasant 69 years old male with past medical history of end-stage renal disease on hemodialysis, atrial fibrillation, asthma, heart failure, diabetes mellitus, GERD, hypertension, osteoarthritis, rheumatoid arthritis, seizure disorder. Patient is being resenting with respiratory distress thought to fluid overload from acute CHF exacerbation with systolic dysfunction, also he has bilateral lower extremity cellulitis and diabetic foot ulcers, thought due to chronic venous lower extremity ulcers,March presents because of shortness of breath thought due to fluid overload also with left pleural effusion and followed closely by cardiology and pulmonary team, he underwent hemodialysis to remove fluid, his been on Lasix 80 mg IV twice daily . His dyspnea and fluid overload significantly improved and his weight went down from 125.7 kg on admission to 122.9 kg. Since his symptoms improved patient was cleared for discharge by cardiology and pulmonary and nephrology service Cardiology and nephrology also recommended to stop the Eliquis which was started on admission but is still bleeding from his fistula site. I discussed with the patient risks and benefits of anticoagulation including but not limited to risk of thrombosis related to his A. fib, the agreeing with stopping the Eliquis and to continue with aspirin for now. Also last time patient has been evaluated by vascular surgery Dr. Olvera with recommendation for patient to follow up with him as an outpatient, patient was admitted with this recommendation and I offered to make him an appointment but he declined preferring to make his appointment by himself, patient instructed to call with a week Also patient states that he follows up with wound clinic within a week Problems and management plan were discussed with the patient and he verbalized understanding and acceptance Patient was found stable and can be discharged home however he needs follow-up a s an outpatient. Patient was instructed to follow up with PCP Dr. Rosen within one week and patient agrees. Also patient was instructed to follow up with Dr. Humphries his vascular surgeon in 1 week and he agrees. Patient instructed to follow up with certified fraud examiner Dr. Chambers, Dr. Muller and Dr. Humphries in 2 weeks and he agrees. Patient was to make his own appointment Gen: patient is a AAOx3, no distress CVS: S1-S2, RRR, no murmur Lungs: B/L CTA, no wheezing Abdomen: soft, no distention, no tenderness, positive bowel sounds Extremity: no leg edema or induration. Left upper extremity fistula. Time spent more than 35 minutes Patient Condition at Discharge: Fair Plan - Discharge Summary Discharge Rx Participant: Yes New Discharge Prescriptions: No Action NIFEdipine [NIFEdipine ER] 60 mg PO DAILY Etanercept [Enbrel] 50 mg SQ LUU Gemfibrozil [Lopid] 600 mg PO BID Aspirin EC [Ecotrin Low Dose] 81 mg PO DAILY Budesonide-Formot 160-4.5 Mcg [Symbicort 160-4.5 Mcg Inhaler] 2 puff INHALATION RT-BID Omeprazole 40 mg PO DAILY Metoprolol Tartrate [Lopressor] 50 mg PO BID Calcium Acetate [PhosLo] 1,334 mg PO TID-W/MEALS Magnebind 250/300mg 1 tab PO BID-W/MEALS Prorenal + D 1 tab PO DAILY Albuterol Nebulized [Ventolin Nebulized] 2.5 mg INHALATION RT-QID Furosemide [Lasix] 80 mg PO BID@0900,1600 tab Famotidine [Pepcid] 20 mg PO BID #30 tablet ALPRAZolam [Xanax] 0.25 mg PO TID PRN 3 Days #9 tab PRN Reason: anxiety Insulin Lispro [humaLOG Kwikpen] See Protocol SQ ACHS Insulin Glargine,Hum.rec.anlog [Lantus Solostar] 17 unit SQ HS Discharge Medication List Etanercept [Enbrel] 50 mg SQ LUU 06/12/14 [History] NIFEdipine [NIFEdipine ER] 60 mg PO DAILY 06/12/14 [History] Aspirin EC [Ecotrin Low Dose] 81 mg PO DAILY 07/31/18 [History] Gemfibrozil [Lopid] 600 mg PO BID 07/31/18 [History] Budesonide-Formot 160-4.5 Mcg [Symbicort 160-4.5 Mcg Inhaler] 2 puff INHALATION RT-BID 02/26/19 [History] Calcium Acetate [PhosLo] 1,334 mg PO TID-W/MEALS 02/26/19 [History] Magnebind 250/300mg 1 tab PO BID-W/MEALS 02/26/19 [History] Metoprolol Tartrate [Lopressor] 50 mg PO BID 02/26/19 [History] Omeprazole 40 mg PO DAILY 02/26/19 [History] Prorenal + D 1 tab PO DAILY 02/26/19 [History] Albuterol Nebulized [Ventolin Nebulized] 2.5 mg INHALATION RT-QID 03/17/19 [History] Famotidine [Pepcid] 20 mg PO BID #30 tablet 03/20/19 [Rx] Furosemide [Lasix] 80 mg PO BID@0900,1600 tab 03/20/19 [Rx] ALPRAZolam [Xanax] 0.25 mg PO TID PRN 3 Days #9 tab 05/17/19 [Rx] Insulin Glargine,Hum.rec.anlog [Lantus Solostar] 17 unit SQ HS 06/16/19 [History] Insulin Lispro [humaLOG Kwikpen] See Protocol SQ ACHS 06/16/19 [History] Follow up Appointment(s)/Referral(s): Nell Rosen MD [Primary Care Provider] - 1-2 days [facility], [NON-STAFF] -
--- NOTE | 2019-06-19 16:50 | PN ---
PROGRESS NOTE DATE OF SERVICE: 06/19/2019 REASON FOR FOLLOWUP: Bilateral lower extremity cellulitis. INTERVAL HISTORY: The patient is currently afebrile, has been breathing comfortably. Denies having any chest pain or cough. No nausea, vomiting or any worsening pain to the lower extremities. PHYSICAL EXAMINATION: Blood pressure 130/68 with a pulse of 66, temperature 98.1. He is 99% on 2 L nasal cannula. General description is a middle-aged male up in the chair in no distress. RESPIRATORY SYSTEM: Unlabored breathing. Decreased breath sounds at the bases. HEART: S1, S2. Regular rate and rhythm. slightly decreased. LABS: Hemoglobin 10.2, white count 4.6. Creatinine 5.52. DIAGNOSTIC IMPRESSION AND PLAN: Patient with bilateral lower extremity cellulitis in this patient who did have diffuse swelling and redness streptococcal that is clinically responding to cefazolin; to continue. Local would care as ordered. Plan to finish therapy with oral Keflex. Continue with supportive care. MMODL / IJN: [id number] /
== END 2019-06-19 15:28 | disposition home or self-care (01) | DRG 291 ==
LOC: EC 11:26 → 3SCARD 14:00 → 4SSUR 06-17 18:01
PROVIDERS: ADMIT Hospitalist; ATTEND Hospitalist
PROC: 5A1D70Z Performance of Urinary Filtration, Intermittent, Less than 6 Hours Per Day (ICD-10-PCS; principal; 2019-06-17)
DX: I13.2 Hypertensive heart and chronic kidney disease with heart failure and with stage 5 chronic kidney disease, or end stage renal disease (principal); I50.23 Acute on chronic systolic (congestive) heart failure; N18.6 End stage renal disease; E11.52 Type 2 diabetes mellitus with diabetic peripheral angiopathy with gangrene; I48.19 Other persistent atrial fibrillation; J96.11 Chronic respiratory failure with hypoxia; J98.11 Atelectasis; L03.115 Cellulitis of right lower limb; L03.116 Cellulitis of left lower limb; L97.912 Non-pressure chronic ulcer of unspecified part of right lower leg with fat layer exposed; L97.929 Non-pressure chronic ulcer of unspecified part of left lower leg with unspecified severity; T82.838A Hemorrhage due to vascular prosthetic devices, implants and grafts, initial encounter; D68.32 Hemorrhagic disorder due to extrinsic circulating anticoagulants; D53.9 Nutritional anemia, unspecified; D63.1 Anemia in chronic kidney disease; D69.6 Thrombocytopenia, unspecified; E11.22 Type 2 diabetes mellitus with diabetic chronic kidney disease; E11.319 Type 2 diabetes mellitus with unspecified diabetic retinopathy without macular edema; E11.42 Type 2 diabetes mellitus with diabetic polyneuropathy; E11.621 Type 2 diabetes mellitus with foot ulcer; E11.622 Type 2 diabetes mellitus with other skin ulcer; E11.65 Type 2 diabetes mellitus with hyperglycemia; E66.9 Obesity, unspecified; E78.5 Hyperlipidemia, unspecified; F32.9 Major depressive disorder, single episode, unspecified; F41.9 Anxiety disorder, unspecified; G40.909 Epilepsy, unspecified, not intractable, without status epilepticus; G89.29 Other chronic pain; H54.8 Legal blindness, as defined in USA; I27.20 Pulmonary hypertension, unspecified; I08.1 Rheumatic disorders of both mitral and tricuspid valves; I87.2 Venous insufficiency (chronic) (peripheral); I87.309 Chronic venous hypertension (idiopathic) without complications of unspecified lower extremity; J44.9 Chronic obstructive pulmonary disease, unspecified; K21.9 Gastro-esophageal reflux disease without esophagitis; B96.5 Pseudomonas (aeruginosa) (mallei) (pseudomallei) as the cause of diseases classified elsewhere; B95.8 Unspecified staphylococcus as the cause of diseases classified elsewhere; L97.509 Non-pressure chronic ulcer of other part of unspecified foot with unspecified severity; M06.9 Rheumatoid arthritis, unspecified; M89.8X9 Other specified disorders of bone, unspecified site; S80.821A Blister (nonthermal), right lower leg, initial encounter; S80.822A Blister (nonthermal), left lower leg, initial encounter; T45.515A Adverse effect of anticoagulants, initial encounter; Z68.33 Body mass index [BMI] 33.0-33.9, adult; Z79.01 Long term (current) use of anticoagulants; Z79.4 Long term (current) use of insulin; Z79.51 Long term (current) use of inhaled steroids; Z79.82 Long term (current) use of aspirin; Z79.899 Other long term (current) drug therapy; Z83.3 Family history of diabetes mellitus; Z86.79 Personal history of other diseases of the circulatory system; Z87.891 Personal history of nicotine dependence; Z91.19 Patient's noncompliance with other medical treatment and regimen; Z99.2 Dependence on renal dialysis; Z99.81 Dependence on supplemental oxygen; R79.89 Other specified abnormal findings of blood chemistry; Z80.9 Family history of malignant neoplasm, unspecified; Z98.42 Cataract extraction status, left eye; Z98.41 Cataract extraction status, right eye; M54.9 Dorsalgia, unspecified
CPT/HCPCS: 36415; 71045; 71046; 76604; 80048; 80053; 83605; 83735; 83880; 84484; 85025; 85610; 85730; 87040; 87502; 87634; 90935; 93005; 94640; 94760; 96374; 99291

== ENCOUNTER 2019-06-27 14:46 | Inpatient (IN) | payer MEDICARE ==
--- NOTE | 2019-06-27 15:19 | ED ---
General Adult HPI - General Chief complaint: Shortness of Breath Stated complaint: Diff Breathing Time Seen by Provider: 06/27/19 15:17 Source: patient, EMS Mode of arrival: EMS Limitations: no limitations - History of Present Illness Initial comments: Patient presents the ED by ambulance from his dialysis appointment for evaluation. Patient states that he became dyspneic while being dialyzed today after a mask was placed over his mouth (secondary to current Covid-19 pandemic), so an ambulance was called to bring him to the ED. Patient states that he feels much better now that his mask has been removed and he has been placed on nasal cannula oxygen. Patient states that he underwent dialysis for about an hour today before leaving in an ambulance. Patient denies having any pain, fever or chills, headache, focal neuro deficit, chest pain, cough or cold symptoms, palpitations, dizziness, nausea/vomiting/diaphoresis, abdominal pain, bloody or melanotic stool, leg or calf pain, or any other symptoms or complaints. Patient states that he gets dialyzed Sunday, Sunday and Sunday. - Related Data Home Medications Medication Instructions Recorded Confirmed Etanercept [Enbrel] 50 mg SQ LUU 06/12/14 06/16/19 NIFEdipine [NIFEdipine ER] 60 mg PO DAILY 06/12/14 06/16/19 Aspirin EC [Ecotrin Low Dose] 81 mg PO DAILY 07/31/18 06/16/19 Gemfibrozil [Lopid] 600 mg PO BID 07/31/18 06/16/19 Budesonide-Formot 160-4.5 Mcg 2 puff INHALATION RT-BID 02/26/19 06/16/19 [Symbicort 160-4.5 Mcg Inhaler] Calcium Acetate [PhosLo] 1,334 mg PO TID-W/MEALS 02/26/19 06/16/19 Magnebind 250/300mg 1 tab PO BID-W/MEALS 02/26/19 06/16/19 Metoprolol Tartrate [Lopressor] 50 mg PO BID 02/26/19 06/16/19 Omeprazole 40 mg PO DAILY 02/26/19 06/16/19 Prorenal + D 1 tab PO DAILY 02/26/19 06/16/19 Albuterol Nebulized [Ventolin 2.5 mg INHALATION RT-QID 12/16/19 03/16/20 Nebulized] Insulin Glargine,Hum.rec.anlog 17 unit SQ HS 06/16/19 06/16/19 [Lantus Solostar] Insulin Lispro [humaLOG Kwikpen] See Protocol SQ ACHS 06/16/19 06/16/19 Previous Rx's Medication Instructions Recorded Famotidine [Pepcid] 20 mg PO BID #30 tablet 03/20/19 Furosemide [Lasix] 80 mg PO BID@0900,1600 tab 03/20/19 ALPRAZolam [Xanax] 0.25 mg PO TID PRN 3 Days #9 tab 05/17/19 Acetaminophen Tab [Tylenol] 500 mg PO Q6HR PRN tab 06/19/19 Cephalexin [Keflex] 500 mg PO Q12HR 7 Days #14 cap 06/19/19 Allergies Allergy/AdvReac Type Severity Reaction Status Date / Time sulfamethoxazole AdvReac Unknown Nausea & Verified 06/16/19 15:19 [From Bactrim] Vomiting trimethoprim [From Bactrim] AdvReac Unknown Nausea & Verified 06/16/19 15:19 Vomiting Review of Systems ROS Statement: Those systems with pertinent positive or pertinent negative responses have been documented in the HPI. ROS Other: All systems not noted in ROS Statement are negative. Past Medical History Past Medical History: Atrial Fibrillation, Asthma, Heart Failure, Diabetes Mellitus, Dialysis, Eye Disorder, GERD/Reflux, Hypertension, Osteoarthritis (OA), Pneumonia, Renal Disease, Rheumatoid Arthritis (RA), Seizure Disorder Additional Past Medical History / Comment(s): ESRD with hemodialysis, mineral bone disease, chronic anemia, IDDM type II, diabetic retinopathy-"legally blind", chronic neuropathy occasionally in toes bilateral feet and left leg, bilateral lower leg edema, cellulitis bilateral lower legs, past leg/foot wounds and currently has left medial leg wounds that have scabbed over and no longer goes to [facility], paroxysmal Afib, 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 History of Any Multi-Drug Resistant Organisms: None Reported Past Surgical History: Hernia Repair, Orthopedic Surgery Additional Past Surgical History / Comment(s): Bilateral cataract surgery, insertion dialysis catheter left arm then had a procedure done to dialysis catheter at [facility]-cannot recall exactly what was done, PICC line insertion/removed, bilateral inguinal hernina repairs, colonoscopy/polypectomy, R shoulder rotator cuff repair, debridements bilateral feet. Past Anesthesia/Blood Transfusion Reactions: No Reported Reaction Additional Past Anesthesia/Blood Transfusion Reaction / Comment(s): Pt received blood in past without reaction. Past Psychological History: Anxiety, Depression Smoking Status: Former smoker Past Alcohol Use History: None Reported Past Drug Use History: None Reported - Past Family History Mother Family Medical History: Diabetes Mellitus Father Family Medical History: Cancer Additional Family Medical History / Comment(s): Metastatic cancer. Pt cannot recall primary. General Exam Limitations: no limitations General appearance: alert, in no apparent distress Head exam: Present: atraumatic, normocephalic Eye exam: Present: normal appearance, EOMI ENT exam: Present: mucous membranes moist Neck exam: Present: other (Trachea is in midline) Respiratory exam: Present: other (Decreased breath sounds at left lung base). Absent: respiratory distress, wheezes, rales, rhonchi Cardiovascular Exam: Present: regular rate, irregular rhythm, normal heart sounds, other (Normal radial pulses bilaterally) GI/Abdominal exam: Present: soft. Absent: tenderness, guarding Extremities exam: Present: pedal edema, other (Negative Homans sign bilaterally). Absent: tenderness, calf tenderness Neurological exam: Present: alert, oriented X3. Absent: motor sensory deficit Psychiatric exam: Present: normal affect, normal mood Skin exam: Present: warm, dry, intact, normal color Course Vital Signs 06/27/19 06/27/19 06/27/19 15:03 15:07 16:07 Temperature 97.6 F Pulse Rate 74 88 Respiratory 20 20 20 Rate Blood Pressure 145/94 150/87 O2 Sat by Pulse 92 L 93 L Oximetry - Reevaluation(s) Reevaluation #1: 06/27/19 17:41 Case, H&P and test results were discussed with Milly Donnelly NP. She accepts hospital admission on behalf of herself and Dr. Roldan. She agrees with plan for nephrology consultation. She has no further recommendations at this time. 06/27/19 18:01 Patient remains alert and breathing comfortably. Patient denies development of any new symptoms while in the ED. Patient is currently getting dialyzed while in the ED. Patient is aware of his test results, and he agrees with hospital admission at this time. EKG Findings - EKG Comments: EKG Findings:: Atrial fibrillation, ventricular rate of 72 bpm, normal QRS interval, normal QT interval, normal axis, nonspecific T-wave abnormality Medical Decision Making - Medical Decision Making Given the patient's borderline hypoxia and large left pleural effusion (seen on chest x-ray), will admit the patient to the hospital for further evaluation and management. Patient is being dialyzed while in the ED. Patient is afebrile and without leukocytosis. Patient denies having a cough or cold symptoms. I do not suspect that the patient's chest x-ray findings are infectious in etiology. Patient's troponin is within normal limits. Patient is slightly hyperglycemic, but not acidotic. Patient was given a dose of subcutaneous regular insulin while in the ED. - Lab Data Result diagrams: 06/27/19 15:22 06/27/19 15:22 Lab Results 06/27/19 06/27/19 06/27/19 Range/Units 15:22 15:22 15:22 WBC 7.1 (3.8-10.6) k/uL RBC 3.34 L (4.30-5.90) m/uL Hgb 10.9 L (13.0-17.5) gm/dL Hct 34.4 L (39.0-53.0) % MCV 103.1 H (80.0-100.0) fL MCH 32.6 (25.0-35.0) pg MCHC 31.6 (31.0-37.0) g/dL RDW 17.8 H (11.5-15.5) % Plt Count 155 (150-450) k/uL Neutrophils % 81 % Lymphocytes % 9 % Monocytes % 5 % Eosinophils % 3 % Basophils % 1 % Neutrophils # 5.8 (1.3-7.7) k/uL Lymphocytes # 0.6 L (1.0-4.8) k/uL Monocytes # 0.4 (0-1.0) k/uL Eosinophils # 0.2 (0-0.7) k/uL Basophils # 0.0 (0-0.2) k/uL Anisocytosis Slight Macrocytosis Moderate PT 11.0 (9.0-12.0) sec INR 1.1 (<1.2) APTT 23.4 (22.0-30.0) sec Sodium 137 (137-145) mmol/L Potassium 4.9 (3.5-5.1) mmol/L Chloride 95 L (98-107) mmol/L Carbon Dioxide 23 (22-30) mmol/L Anion Gap 19 mmol/L BUN 77 H (9-20) mg/dL Creatinine 8.35 H* (0.66-1.25) mg/dL Est GFR (CKD-EPI)AfAm 7 (>60 ml/min/1.73 sqM) Est GFR (CKD-EPI)NonAf 6 (>60 ml/min/1.73 sqM) Glucose 295 H (74-99) mg/dL Plasma Lactic Acid John (0.7-2.0) mmol/L Calcium 9.1 (8.4-10.2) mg/dL Magnesium 2.0 (1.6-2.3) mg/dL Total Bilirubin 0.8 (0.2-1.3) mg/dL AST 26 (17-59) U/L ALT 20 (4-49) U/L Alkaline Phosphatase 119 (38-126) U/L Troponin I (0.000-0.034) ng/mL NT-Pro-B Natriuret Pep pg/mL Total Protein 7.7 (6.3-8.2) g/dL Albumin 4.0 (3.5-5.0) g/dL 06/27/19 06/27/19 06/27/19 Range/Units 15:22 15:22 15:22 WBC (3.8-10.6) k/uL RBC (4.30-5.90) m/uL Hgb (13.0-17.5) gm/dL Hct (39.0-53.0) % MCV (80.0-100.0) fL MCH (25.0-35.0) pg MCHC (31.0-37.0) g/dL RDW (11.5-15.5) % Plt Count (150-450) k/uL Neutrophils % % Lymphocytes % % Monocytes % % Eosinophils % % Basophils % % Neutrophils # (1.3-7.7) k/uL Lymphocytes # (1.0-4.8) k/uL Monocytes # (0-1.0) k/uL Eosinophils # (0-0.7) k/uL Basophils # (0-0.2) k/uL Anisocytosis Macrocytosis PT (9.0-12.0) sec INR (<1.2) APTT (22.0-30.0) sec Sodium (137-145) mmol/L Potassium (3.5-5.1) mmol/L Chloride (98-107) mmol/L Carbon Dioxide (22-30) mmol/L Anion Gap mmol/L BUN (9-20) mg/dL Creatinine (0.66-1.25) mg/dL Est GFR (CKD-EPI)AfAm (>60 ml/min/1.73 sqM) Est GFR (CKD-EPI)NonAf (>60 ml/min/1.73 sqM) Glucose (74-99) mg/dL Plasma Lactic Acid John 1.5 (0.7-2.0) mmol/L Calcium (8.4-10.2) mg/dL Magnesium (1.6-2.3) mg/dL Total Bilirubin (0.2-1.3) mg/dL AST (17-59) U/L ALT (4-49) U/L Alkaline Phosphatase (38-126) U/L Troponin I 0.019 (0.000-0.034) ng/mL NT-Pro-B Natriuret Pep 75616 pg/mL Total Protein (6.3-8.2) g/dL Albumin (3.5-5.0) g/dL - Radiology Data Radiology results: image reviewed (Large left pleural effusion with underlying atelectasis versus consolidation versus mass) Disposition Clinical Impression: Dyspnea, Atrial fibrillation, Pleural effusion, left, Chronic renal failure Disposition: ADMITTED IP TO THIS [facility] Condition: Stable Is patient prescribed a controlled substance at d/c from ED?: No Referrals: Nell Rosen MD [Primary Care Provider] - 1-2 days Time of Disposition: 17:42
--- NOTE | 2019-06-27 16:26 | XR ---
EXAMINATION TYPE: XR chest 2V DATE OF EXAM: 06/27/2019 COMPARISON: 06/17/2019 HISTORY: 69-year-old male difficulty breathing, shortness of breath TECHNIQUE: AP and lateral views FINDINGS: Significant rightward patient rotation ultrasound normal cardiomediastinal contours. Unable to determ ine if there is mass effect onto the heart and mediastinum. Enlarging opacity in the left now extendi ng up to the upper third thoracic level. Right lung and pleural space appear relatively clear. IMPRESSION: 1. Significant rightward patient rotation. Unable to determine if there is mass effect shifting the h eart to the right side or if this is projectional. 2. Slight increasing opacity on the left now extending up to the upper third thoracic level. Large pl eural effusion with extensive underlying atelectasis and/or consolidation should be considered. Under lying mass is also possible
[2019-06-27 16:27] LABS: Anisocytosis Slight; Basophils % (A) 1 %; Eosinophils # (A) 0.2 k/uL (0-0.7); Eosinophils % (A) 3 %; HCT 34.4 % (39.0-53.0); HGB 10.9 gm/dL (13.0-17.5); Lymphocytes # (A) 0.6 k/uL (1.0-4.8); Lymphocytes % (A) 9 %; MCH 32.6 pg (25.0-35.0); MCHC 31.6 g/dL (31.0-37.0); MCV 103.1 fL (80.0-100.0); Macrocytosis Moderate; Mean Platelet Volume 9.4; Monocytes # (A) 0.4 k/uL (0-1.0); Monocytes % (A) 5 %; Neutrophils # (A) 5.8 k/uL (1.3-7.7); Neutrophils % (A) 81 %; Platelet Count 155 k/uL (150-450); RBC 3.34 m/uL (4.30-5.90); RDW 17.8 % (11.5-15.5); WBC 7.1 k/uL (3.8-10.6)
[2019-06-27 16:33] LABS: Calcium 9.1 mg/dL (8.4-10.2); Potassium 4.9 mmol/L (3.5-5.1); Total Bilirubin 0.8 mg/dL (0.2-1.3); Total Protein 7.7 g/dL (6.3-8.2)
[2019-06-27 16:42] LABS: INR 1.1 (<1.2); Partial Thromboplastin Time 23.4 sec (22.0-30.0)
[2019-06-27] MEDS ORDERED: INSULIN REGULAR 100 UNIT/ML VIAL SQ ONE (16:51)
[2019-06-27] MEDS ORDERED: ALPRAZolam 0.25 MG TAB PO PRN (17:45)
[2019-06-27 19:55] LABS: Glucose,Whole Blood 244 mg/dL (75-99)
[2019-06-27] MEDS: FAMOTIDINE 20 MG TAB PO SCH (22:21)
[2019-06-27] MEDS: METOPROLOL TARTRATE 50 MG TAB PO SCH (22:21)
[2019-06-27] MEDS: levOCARNitine (WITH SUGAR) 100 MG/ML BOTTLE PO SCH (22:22)
[2019-06-27] MEDS: INSULIN DETEMIR (LEVEMIR) 100 UNIT/ML SYR SQ SCH (22:22)
[2019-06-28 07:00] LABS: Glucose,Whole Blood 274 mg/dL (75-99)
[2019-06-28 07:13] LABS: Anisocytosis Slight; Basophils % (A) 0 %; Eosinophils # (A) 0.3 k/uL (0-0.7); Eosinophils % (A) 4 %; HCT 33.8 % (39.0-53.0); HGB 10.5 gm/dL (13.0-17.5); Hypochromasia Slight; Lymphocytes # (A) 0.7 k/uL (1.0-4.8); Lymphocytes % (A) 11 %; MCH 32.2 pg (25.0-35.0); Macrocytosis Moderate; Mean Platelet Volume 9.5; Monocytes # (A) 0.3 k/uL (0-1.0); Monocytes % (A) 5 %; Neutrophils # (A) 4.8 k/uL (1.3-7.7); Neutrophils % (A) 77 %; Platelet Count 149 k/uL (150-450); RBC 3.25 m/uL (4.30-5.90); RDW 17.7 % (11.5-15.5); WBC 6.1 k/uL (3.8-10.6)
[2019-06-28 07:23] LABS: Albumin 3.8 g/dL (3.5-5.0); Potassium 5.1 mmol/L (3.5-5.1); Total Protein 7.3 g/dL (6.3-8.2)
[2019-06-28 07:24] LABS: Calcium 9.1 mg/dL (8.4-10.2); Total Bilirubin 0.6 mg/dL (0.2-1.3)
[2019-06-28] MEDS: METOPROLOL TARTRATE 50 MG TAB PO SCH ×2 (08:12→21:51)
[2019-06-28] MEDS: ASPIRIN 81 MG PO SCH (08:12)
[2019-06-28] MEDS: FUROSEMIDE 80 MG TAB PO SCH ×2 (08:12→16:43)
[2019-06-28] MEDS: INSULIN ASPART (NovoLOG) 100 UNIT/ML VIAL SQ SCH ×4 (08:12→21:51)
[2019-06-28] MEDS: FENOFIBRATE 160 MG TAB PO SCH (08:12)
[2019-06-28] MEDS: CALCIUM ACETATE 667 MG TAB PO SCH ×3 (08:12→16:43)
[2019-06-28] MEDS: FAMOTIDINE 20 MG TAB PO SCH ×2 (08:12→21:51)
[2019-06-28] MEDS: levOCARNitine (WITH SUGAR) 100 MG/ML BOTTLE PO SCH ×3 (08:13→21:51)
[2019-06-28 11:35] LABS: Glucose,Whole Blood 183 mg/dL (75-99)
--- NOTE | 2019-06-28 12:07 | P.NPCON ---
History of Present Illness - Reason for Consult end stage renal disease - Chief Complaint Shortness of breath - History of Present Illness This 69-year-old male with ESRD on dialysis Sunday who came in because of shortness of breath while being on dialysis on Sunday yesterday. He had just finished one hour of dialysis. He was subsequently dialyze here in the hospital supposedly for 3 hours workup has shown bilateral effusion but mostly on the left with worsening over the last few months. A computed tomography scan previously had shown lymph node suggestive of possible malignancy. He is known with atrial fibrillation and asthma heart failure. He was recently admitted here on 06/16/2019 with shortness of breath and discharged 06/19/2019 He has not had any pleurocentesis done so far. He has chronic ulcers in both of his feet, diabetic eye disease retinopathy and neuropathy and nephropathy, known with rheumatoid arthritis seizure disorder. Is also known with history of having had a mitral valve endocarditis in 2013 Past Medical History Past Medical History: Atrial Fibrillation, Asthma, Heart Failure, Diabetes Mellitus, Dialysis, Eye Disorder, GERD/Reflux, Hypertension, Osteoarthritis (OA), Pneumonia, Renal Disease, Rheumatoid Arthritis (RA), Seizure Disorder Additional Past Medical History / Comment(s): ESRD with hemodialysis, mineral bone disease, chronic anemia, IDDM type II, diabetic retinopathy-"legally blind", chronic neuropathy occasionally in toes bilateral feet and left leg, bilateral lower leg edema, cellulitis bilateral lower legs, past leg/foot wounds and currently has left medial leg wounds that have scabbed over and no longer goes to [facility], paroxysmal Afib, 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 History of Any Multi-Drug Resistant Organisms: None Reported Past Surgical History: Hernia Repair, Orthopedic Surgery Additional Past Surgical History / Comment(s): Bilateral cataract surgery, insertion dialysis catheter left arm then had a procedure done to dialysis catheter at [facility]-cannot recall exactly what was done, PICC line ins ertion/removed, bilateral inguinal hernina repairs, colonoscopy/polypectomy, R shoulder rotator cuff repair, debridements bilateral feet. Past Anesthesia/Blood Transfusion Reactions: No Reported Reaction Additional Past Anesthesia/Blood Transfusion Reaction / Comment(s): Pt received blood in past without reaction. Past Psychological History: Anxiety, Depression Additional Psychological History / Comment(s): lives with his and family home. 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 No travel since his days. no animals in the home Smoking Status: Former smoker Past Alcohol Use History: None Reported Additional Past Alcohol Use History / Comment(s): Pt started smoking in 1963 and quit in 1987. During that time, a pack of cigarettes would last 1 week. Past Drug Use History: None Reported - Past Family History Mother Family Medical History: Diabetes Mellitus Father Family Medical History: Cancer Additional Family Medical History / Comment(s): Metastatic cancer. Pt cannot recall primary. Medications and Allergies Home Medications Medication Instructions Recorded Confirmed Type Etanercept [Enbrel] 50 mg SQ LUU 06/12/14 06/27/19 History NIFEdipine [NIFEdipine ER] 60 mg PO DAILY 06/12/14 06/27/19 History Aspirin EC [Ecotrin Low Dose] 81 mg PO DAILY 07/31/18 06/27/19 History Gemfibrozil [Lopid] 600 mg PO BID 07/31/18 06/27/19 History Budesonide-Formot 160-4.5 Mcg 2 puff INHALATION RT-BID 02/26/19 06/27/19 History [Symbicort 160-4.5 Mcg Inhaler] Calcium Acetate [PhosLo] 1,334 mg PO TID-W/MEALS 02/26/19 06/27/19 History Magnebind 250/300mg 1 tab PO BID-W/MEALS 02/26/19 06/27/19 History Metoprolol Tartrate [Lopressor] 50 mg PO BID 02/26/19 06/27/19 History Omeprazole 40 mg PO DAILY 02/26/19 06/27/19 History Prorenal + D 1 tab PO DAILY 02/26/19 06/27/19 History Albuterol Nebulized [Ventolin 2.5 mg INHALATION RT-QID 03/17/19 06/27/19 History Nebulized] Famotidine [Pepcid] 20 mg PO BID #30 tablet 03/20/19 06/27/19 Rx Furosemide [Lasix] 80 mg PO BID@0900,1600 tab 03/20/19 06/27/19 Rx ALPRAZolam [Xanax] 0.25 mg PO TID PRN 3 Days #9 tab 05/17/19 06/27/19 Rx Insulin Glargine,Hum.rec.anlog 35 unit SQ HS 06/16/19 06/27/19 History [Lantus Solostar] Insulin Lispro [humaLOG Kwikpen] See Protocol SQ ACHS 06/16/19 06/27/19 History Acetaminophen Tab [Tylenol] 500 mg PO Q6HR PRN tab 06/19/19 06/27/19 Rx Cephalexin [Keflex] 500 mg PO Q12HR 7 Days #14 cap 06/19/19 06/27/19 Rx levOCARNitine [Levocarnitine] 330 mg PO TID 06/27/19 06/27/19 History Allergies Allergy/AdvReac Type Severity Reaction Status Date / Time sulfamethoxazole AdvReac Unknown Nausea & Verified 06/27/19 18:39 [From Bactrim] Vomiting trimethoprim [From Bactrim] AdvReac Unknown Nausea & Verified 06/27/19 18:39 Vomiting Physical Exam Vitals: Vital Signs Temp Pulse Pulse Resp BP BP Pulse Ox 06/28/19 05:36 98.0 F 67 18 154/75 100 06/27/19 19:50 96.5 F L 64 20 149/69 100 06/27/19 19:10 80 20 94 L 06/27/19 18:00 80 20 128/65 94 L 06/27/19 17:00 88 20 93 L 06/27/19 16:07 88 20 150/87 93 L 06/27/19 15:07 20 06/27/19 15:03 97.6 F 74 20 145/94 92 L Intake and Output 06/27/19 06/28/19 06/28/19 22:59 06:59 14:59 Output Total 100 Balance -100 Output: Urine 100 Other: Voiding Method Urinal # Voids 0 Weight 121.563 kg 122.9 kg On examination is awake alert oriented comfortable HEENT exam no JVP neck is supple no facial asymmetry Heart sounds are unremarkable except for atrial fibrillation Lungs are significant for diminished breath sounds in left side. No crackles are heard on the right Abdomen is obese nontender extremity exam was moderate edema with right lateral dressing in his lower legs and feet Neuro logically awake alert oriented Results - Lab Results Most recent lab results Calcium 9.1 mg/dL (8.4-10.2) 06/28/19 06:38 Magnesium 2.0 mg/dL (1.6-2.3) 06/27/19 15:22 06/28/19 06:38 06/28/19 06:38 Assessment and Plan Assessment: Impression 1. ESRD on dialysis Sunday 2. Admitted with shortness of breath and worsening left pleural effusion. 3. Was dialyzed 1 hour yesterday Sunday in the dialysis unit and 3 hours here so he is doing well as far as dialysis and 10 but he had missed the redness is dialysis.. 4. Diabetic foot ulcers bilateral 5. History of previous endocarditis in 2013 with mitral valve involvement 6. History of seizure disorder 7. History of rheumatoid arthritis. 8. Anemia hemoglobin started 10.5 9. Calcium is 9.1 phosphorus, not available Recommendation 1. Will maintain dialysis Sunday. 2. Consider tapping the left effusion because of symptoms as well as would require malignancy rule out as he has multiple enlarged lymph nodes on a CAT scan dated 11/29/2018
--- NOTE | 2019-06-28 15:34 | P.HPIM ---
History of Present Illness 69-year-old male with Sunday hemodialysis came in as he didn't complete his hemodialysis here patient is comparing of shortness of breath and patient was thought to have fever although patient doesn't have fever at this time he doesn't have any cough. Chest x-ray did not show any significant pulmonary edema. But did show pleural effusion on the left side which is bit worse compared to yesterday compared to previous hospital physician patient does have pleural effusion in the past as well which appears to be chronic effusion previous CAT scan was concerning for cancer as there is a lymph node enlargement I'm repeating the CAT scan again. Nephrology was consulted. She is still little bit short of breath denied any cough and fever as mentioned above Review of Systems REVIEW OF SYSTEMS: CONSTITUTIONAL: No fever, no malaise, no fatigue. HEENT: No recent visual problems or hearing problems. Denied any sore throat. CARDIOVASCULAR: No chest pain, orthopnea, PND, no palpitations, no syncope. PULMONARY: As mentioned in HPI GASTROINTESTINAL: No diarrhea, no nausea, no vomiting, no abdominal pain. NEUROLOGICAL: No headaches, no weakness, no numbness. HEMATOLOGICAL: Denies any bleeding or petechiae. GENITOURINARY: Denies any burning micturition, frequency, or urgency. MUSCULOSKELETAL/RHEUMATOLOGICAL: Denies any joint pain, swelling, or any muscle pain. ENDOCRINE: Denies any polyuria or polydipsia. The rest of the 14-point review of systems is negative. Past Medical History Past Medical History: Atrial Fibrillation, Asthma, Heart Failure, Diabetes Mellitus, Dialysis, Eye Disorder, GERD/Reflux, Hypertension, Osteoarthritis (OA), Pneumonia, Renal Disease, Rheumatoid Arthritis (RA), Seizure Disorder Additional Past Medical History / Comment(s): ESRD with hemodialysis, mineral bone disease, chronic anemia, IDDM type II, diabetic retinopathy-"legally blind", chronic neuropathy occasionally in toes bilateral feet and left leg, bilateral lower leg edema, cellulitis bilateral lower legs, past leg/foot wounds and currently has left medial leg wounds that have scabbed over and no longer goes to [facility], paroxysmal Afib, 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 History of Any Multi-Drug Resistant Organisms: None Reported Past Surgical History: Hernia Repair, Orthopedic Surgery Additional Past Surgical History / Comment(s): Bilateral cataract surgery, insertion dialysis catheter left arm then had a procedure done to dialysis catheter at [facility]-cannot recall exactly what was done, PICC line insertion/removed, bilateral inguinal hernina repairs, colonoscopy/polypectomy, R shoulder rotator cuff repair, debridements bilateral feet. Past Anesthesia/Blood Transfusion Reactions: No Reported Reaction Additional Past Anesthesia/Blood Transfusion Reaction / Comment(s): Pt received blood in past without reaction. Past Psychological History: Anxiety, Depression Additional Psychological History / Comment(s): lives with his and family home. 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 No travel since his days. no animals in the home Smoking Status: Former smoker Past Alcohol Use History: None Reported Additional Past Alcohol Use History / Comment(s): Pt started smoking in 1963 and quit in 1987. During that time, a pack of cigarettes would last 1 week. Past Drug Use History: None Reported - Past Family History Mother Family Medical History: Diabetes Mellitus Father Family Medical History: Cancer Additional Family Medical History / Comment(s): Metastatic cancer. Pt cannot recall primary. Medications and Allergies Home Medications Medication Instructions Recorded Confirmed Type Etanercept [Enbrel] 50 mg SQ LUU 06/12/14 06/27/19 History NIFEdipine [NIFEdipine ER] 60 mg PO DAILY 06/12/14 06/27/19 History Aspirin EC [Ecotrin Low Dose] 81 mg PO DAILY 07/31/18 06/27/19 History Gemfibrozil [Lopid] 600 mg PO BID 07/31/18 06/27/19 History Budesonide-Formot 160-4.5 Mcg 2 puff INHALATION RT-BID 02/26/19 06/27/19 History [Symbicort 160-4.5 Mcg Inhaler] Calcium Acetate [PhosLo] 1,334 mg PO TID-W/MEALS 02/26/19 06/27/19 History Magnebind 250/300mg 1 tab PO BID-W/MEALS 02/26/19 06/27/19 History Metoprolol Tartrate [Lopressor] 50 mg PO BID 02/26/19 06/27/19 History Omeprazole 40 mg PO DAILY 02/26/19 06/27/19 History Prorenal + D 1 tab PO DAILY 02/26/19 06/27/19 History Albuterol Nebulized [Ventolin 2.5 mg INHALATION RT-QID 03/17/19 06/27/19 History Nebulized] Famotidine [Pepcid] 20 mg PO BID #30 tablet 03/20/19 06/27/19 Rx Furosemide [Lasix] 80 mg PO BID@0900,1600 tab 03/20/19 06/27/19 Rx ALPRAZolam [Xanax] 0.25 mg PO TID PRN 3 Days #9 tab 05/17/19 06/27/19 Rx Insulin Glargine,Hum.rec.anlog 35 unit SQ HS 06/16/19 06/27/19 History [Lantus Solostar] Insulin Lispro [humaLOG Kwikpen] See Protocol SQ ACHS 06/16/19 06/27/19 History Acetaminophen Tab [Tylenol] 500 mg PO Q6HR PRN tab 06/19/19 06/27/19 Rx Cephalexin [Keflex] 500 mg PO Q12HR 7 Days #14 cap 06/19/19 06/27/19 Rx levOCARNitine [Levocarnitine] 330 mg PO TID 06/27/19 06/27/19 History Allergies Allergy/AdvReac Type Severity Reaction Status Date / Time sulfamethoxazole AdvReac Unknown Nausea & Verified 06/27/19 18:39 [From Bactrim] Vomiting trimethoprim [From Bactrim] AdvReac Unknown Nausea & Verified 06/27/19 18:39 Vomiting Physical Exam Vitals: Vital Signs Temp Pulse Pulse Resp BP BP Pulse Ox 06/28/19 13:08 97.9 F 54 L 14 124/59 100 06/28/19 05:36 98.0 F 67 18 154/75 100 06/27/19 19:50 96.5 F L 64 20 149/69 100 06/27/19 19:10 80 20 94 L 06/27/19 18:00 80 20 128/65 94 L 06/27/19 17:00 88 20 93 L 06/27/19 16:07 88 20 150/87 93 L Intake and Output 06/28/19 06/28/19 06/28/19 06:59 14:59 22:59 Intake Total 540 Output Total 100 Balance -100 540 Intake: Oral 540 Output: Urine 100 Other: # Voids 0 Weight 122.9 kg PHYSICAL EXAMINATION: GENERAL: The patient is alert and oriented x3, not in any acute distress. Well developed, well nourished. HEENT: Pupils are round and equally reacting to light. EOMI. No scleral icterus. No conjunctival pallor. Normocephalic, atraumatic. No pharyngeal erythema. No thyromegaly. CARDIOVASCULAR: S1 and S2 present. No murmurs, rubs, or gallops. PULMONARY: Chest is clear to auscultation, no wheezing or crackles. ABDOMEN: Soft, nontender, nondistended, normoactive bowel sounds. No palpable organomegaly. MUSCULOSKELETAL: No joint swelling or deformity. EXTREMITIES: No cyanosis, clubbing, or pedal edema. NEUROLOGICAL: Gross neurological examination did not reveal any focal deficits. SKIN: No rashes. Results CBC & Chem 7: 06/28/19 06:38 06/28/19 06:38 Labs: Abnormal Lab Results - Last 24 Hours (Table) 06/27/19 06/27/19 06/27/19 Range/Units 15:22 15:22 19:54 RBC 3.34 L (4.30-5.90) m/uL Hgb 10.9 L (13.0-17.5) gm/dL Hct 34.4 L (39.0-53.0) % MCV 103.1 H (80.0-100.0) fL RDW 17.8 H (11.5-15.5) % Plt Count (150-450) k/uL Lymphocytes # 0.6 L (1.0-4.8) k/uL Chloride 95 L (98-107) mmol/L BUN 77 H (9-20) mg/dL Creatinine 8.35 H* (0.66-1.25) mg/dL Glucose 295 H (74-99) mg/dL POC Glucose (mg/dL) 244 H (75-99) mg/dL 06/28/19 06/28/19 06/28/19 Range/Units 06:38 06:38 06:57 RBC 3.25 L (4.30-5.90) m/uL Hgb 10.5 L (13.0-17.5) gm/dL Hct 33.8 L (39.0-53.0) % MCV 104.0 H (80.0-100.0) fL RDW 17.7 H (11.5-15.5) % Plt Count 149 L (150-450) k/uL Lymphocytes # 0.7 L (1.0-4.8) k/uL Chloride 96 L (98-107) mmol/L BUN 74 H (9-20) mg/dL Creatinine 8.31 H* (0.66-1.25) mg/dL Glucose 275 H (74-99) mg/dL POC Glucose (mg/dL) 274 H (75-99) mg/dL 06/28/19 Range/Units 11:33 RBC (4.30-5.90) m/uL Hgb (13.0-17.5) gm/dL Hct (39.0-53.0) % MCV (80.0-100.0) fL RDW (11.5-15.5) % Plt Count (150-450) k/uL Lymphocytes # (1.0-4.8) k/uL Chloride (98-107) mmol/L BUN (9-20) mg/dL Creatinine (0.66-1.25) mg/dL Glucose (74-99) mg/dL POC Glucose (mg/dL) 183 H (75-99) mg/dL Thrombosis Risk Factor Assmnt - Choose All That Apply Any of the Below Risk Factors Present?: Yes Each Factor Represents 1 point: Obesity (BMI >25), Swollen legs (current) Other Risk Factors: Yes Each Risk Factor Represents 2 Points: Age 61-74 years Other congenital or acquired thrombophilia - If yes, enter type in comment: No Thrombosis Risk Factor Assessment Total Risk Factor Score: 4 Thrombosis Risk Factor Assessment Level: Moderate Risk Assessment and Plan Plan: -Short as well as seconded to volume or rodent missing hemodialysis patient did undergo emergent hemodialysis patient does have a chronic left-sided pleural e ffusion which need a therapeutic and diagnostic paracentesis as its bit worse compared to his last hospitalization we'll obtain a CAT scan to rule out any mass or lymph node enlargement. -End-stage renal disease, dialysis dependent. Nephrology is following the patient -Chronic venous stasis ulcers in both legs -Proximal A. fib patient is in aspirin rate control medication patient was did not tolerate anticoagulation the past #Anemia of chronic kidney disease Type 2 diabetes mellitus continue with present regimen titration depending on his insulin requirements -Chronic low back pain -Depression Gastroesophageal reflux disease
[2019-06-28 16:59] LABS: Glucose,Whole Blood 174 mg/dL (75-99)
[2019-06-28 21:10] LABS: Glucose,Whole Blood 232 mg/dL (75-99)
[2019-06-28] MEDS: INSULIN DETEMIR (LEVEMIR) 100 UNIT/ML SYR SQ SCH (21:52)
[2019-06-29 07:00] LABS: Glucose,Whole Blood 144 mg/dL (75-99)
[2019-06-29] MEDS: PANTOPRAZOLE 40 MG TABLET PO SCH (08:03)
[2019-06-29] MEDS: NON FORMULARY DRUG (Prorenal + D 1 TAB) PO SCH (08:03)
[2019-06-29] MEDS: FUROSEMIDE 80 MG TAB PO SCH ×2 (08:03→16:20)
[2019-06-29] MEDS: FENOFIBRATE 160 MG TAB PO SCH (08:04)
[2019-06-29] MEDS: FAMOTIDINE 20 MG TAB PO SCH ×2 (08:04→20:21)
[2019-06-29] MEDS: METOPROLOL TARTRATE 50 MG TAB PO SCH ×2 (08:04→20:21)
[2019-06-29] MEDS: CALCIUM ACETATE 667 MG TAB PO SCH ×3 (08:04→16:20)
[2019-06-29] MEDS: levOCARNitine (WITH SUGAR) 100 MG/ML BOTTLE PO SCH ×3 (08:04→22:06)
[2019-06-29] MEDS: ASPIRIN 81 MG PO SCH (08:04)
[2019-06-29] MEDS: INSULIN ASPART (NovoLOG) 100 UNIT/ML VIAL SQ SCH ×4 (08:05→22:06)
[2019-06-29 11:36] LABS: Glucose,Whole Blood 220 mg/dL (75-99)
--- NOTE | 2019-06-29 13:24 | P.PN ---
Subjective Progress Note Date: 06/29/19 Principal diagnosis: This is a 69-year-old male with ESRD on dialysis Sunday. He was admitted because of shortness of breath on Sunday while he was on dialysis. Dialysis was terminated after 1 hour he came here and was further dialysis for 3 hours. He was found to have significant bilateral effusions but mostly on the left than on the right. A computed tomography scan previously had shown lymph nodes suggestive of malignancy. An attempted repeat computed tomography scan was not successful because of claustrophobia patient feels. He is known with atrial fibrillation, asthma, heart failure and was recently admitted here on 06/16/2019 with shortness of breath and discharged on 319. He has chronic ulcers in both of his feet has diabetes with multiple complications, rheumatoid arthritis seizure disorder and a previous history of mitral valve endocarditis in 2013 Objective - Vital Signs Vital signs: Vital Signs Temp 98.0 F 06/29/19 04:50 Pulse 57 L 06/29/19 04:50 Resp 20 06/29/19 04:50 BP 135/66 06/29/19 04:50 Pulse Ox 100 06/29/19 04:50 Intake & Output 06/28/19 06/29/19 06/29/19 18:59 06:59 18:59 Intake Total 540 Output Total 150 Balance 540 -150 Intake: Oral 540 Output: Urine 150 Other: Voiding Method Urinal # Voids 0 # Bowel Movements 1 Examination is awake alert oriented slightly short of breath HEENT exam no JVP neck is supple no facial asymmetry Lungs are significant for diminished breath sounds on the left side. No crackles. No wheezing good air entry but Heart sounds are unremarkable for any murmur rub gallop he is known with atrial fibrillation Abdomen soft slightly distended and protuberant Extremity exam was 2-3+ edema with Lg wraps on both sides His fistula is on the left upper arm Neurologically awake alert oriented - Labs CBC & Chem 7: 06/28/19 06:38 06/28/19 06:38 Labs: Abnormal Lab Results - Last 24 Hours (Table) 06/28/19 06/28/19 06/29/19 Range/Units 16:56 21:09 06:58 POC Glucose (mg/dL) 174 H 232 H 144 H (75-99) mg/dL 06/29/19 Range/Units 11:34 POC Glucose (mg/dL) 220 H (75-99) mg/dL Assessment and Plan Assessment: Impression 1. ESRD on dialysis Sunday. Last dialysis was Sunday in the dialysis unit for just 1 hour he became short of breath and was transferred to ER but he was further dialyze here on . 2. Admitted with shortness of breath and worsening left pleural effusion. He remains short of breath 3. Was dialyzed 1 hour yesterday Sunday in the dialysis unit and 3 hours here so he is doing well as far as dialysis and 10 but he had missed the dialysis on med nebs the as well as he was not feeling . 4. Diabetic foot ulcers bilateral 5. History of previous endocarditis in 2013 with mitral valve involvement 6. History of seizure disorder 7. History of rheumatoid arthritis. 8. Anemia hemoglobin started 10.5 9. Calcium is 9.1 phosphorus, not available Recommendation 1. Will maintain dialysis Sunday. Dialysis tomorrow Sunday and will ultrafiltrate 4 L 2. Consider tapping the left effusion because of symptoms as well as would require malignancy rule out as he has multiple enlarged lymph nodes on a CAT scan dated 11/29/2018
--- NOTE | 2019-06-29 14:39 | P.PN ---
Subjective 69-year-old male with Sunday hemodialysis came in as he didn't complete his hemodialysis here patient is comparing of shortness of breath and patient was thought to have fever although patient doesn't have fever at this time he doesn't have any cough. Chest x-ray did not show any significant pulmonary edema. But did show pleural effusion on the left side which is bit worse compared to yesterday compared to previous hospital physician patient does have pleural effusion in the past as well which appears to be chronic effusion previous CAT scan was concerning for cancer as there is a lymph node enlargement I'm repeating the CAT scan again. Nephrology was consulted. She is still little bit short of breath denied any cough and fever as mentioned above 06/29/2019 Patient the is awaiting CAT scan of the chest to rule out any mass lesion on the left side patient does have significant pleural effusion will undergo therapy can diagnostic thoracentesis tomorrow his respiratory status also improved patient probably will be discharged tomorrow after thoracentesis and these tests are along with the hemodialysis. Constitutional: Denied any fatigue denied any fever. Cardio vascular: denied any chest pain, palpitations Gastrointestinal denied any nausea vomiting Pulmonary: Denied any shortness of breath cough Neurologic denied any new focal deficits All inpatient medications were reviewed and appropriate changes in these medications as dictated in the interval history and assessment and plan. Objective - Vital Signs Vital signs: Vital Signs Temp 98.0 F 06/29/19 04:50 Pulse 57 L 06/29/19 04:50 Resp 20 06/29/19 04:50 BP 135/66 06/29/19 04:50 Pulse Ox 100 06/29/19 04:50 Intake & Output 06/28/19 06/29/19 06/29/19 18:59 06:59 18:59 Intake Total 540 Output Total 150 Balance 540 -150 Intake: Oral 540 Output: Urine 150 Other: Voiding Method Urinal # Voids 0 # Bowel Movements 1 - Exam PHYSICAL EXAMINATION: GENERAL: The patient is alert and oriented x3, not in any acute distress. Well developed, well nourished. HEENT: Pupils are round and equally reacting to light. EOMI. No scleral icterus. No conjunctival pallor. Normocephalic, atraumatic. No pharyngeal erythema. No thyromegaly. CARDIOVASCULAR: S1 and S2 present. No murmurs, rubs, or gallops. PULMONARY: Chest is clear to auscultation, no wheezing or crackles. ABDOMEN: Soft, nontender, nondistended, normoactive bowel sounds. No palpable organomegaly. MUSCULOSKELETAL: No joint swelling or deformity. EXTREMITIES: No cyanosis, clubbing, or pedal edema. NEUROLOGICAL: Gross neurological examination did not reveal any focal deficits. SKIN: No rashes. - Labs CBC & Chem 7: 06/28/19 06:38 06/28/19 06:38 Labs: Abnormal Lab Results - Last 24 Hours (Table) 06/28/19 06/28/19 06/29/19 Range/Units 16:56 21:09 06:58 POC Glucose (mg/dL) 174 H 232 H 144 H (75-99) mg/dL 06/29/19 Range/Units 11:34 POC Glucose (mg/dL) 220 H (75-99) mg/dL Assessment and Plan Plan: -Short as well as seconded to volume or rodent missing hemodialysis patient did undergo emergent hemodialysis patient does have a chronic left-sided pleural eff usion which need a therapeutic and diagnostic paracentesis as its bit worse compared to his last hospitalization we'll obtain a CAT scan to rule out any mass or lymph node enlargement. -End-stage renal disease, dialysis dependent. Nephrology is following the patient -Chronic venous stasis ulcers in both legs -Proximal A. fib patient is in aspirin rate control medication patient was did not tolerate anticoagulation the past #Anemia of chronic kidney disease Type 2 diabetes mellitus continue with present regimen titration depending on his insulin requirements -Chronic low back pain -Depression Gastroesophageal reflux disease
[2019-06-29 16:42] LABS: Glucose,Whole Blood 170 mg/dL (75-99)
[2019-06-29 20:44] LABS: Glucose,Whole Blood 170 mg/dL (75-99)
[2019-06-29] MEDS: INSULIN DETEMIR (LEVEMIR) 100 UNIT/ML SYR SQ SCH (22:05)
[2019-06-30 06:41] LABS: Anisocytosis Slight; HCT 34.5 % (39.0-53.0); HGB 10.8 gm/dL (13.0-17.5); Hypochromasia Slight; MCH 32.8 pg (25.0-35.0); MCHC 31.4 g/dL (31.0-37.0); MCV 104.4 fL (80.0-100.0); Macrocytosis Moderate; Mean Platelet Volume 9.6; Platelet Count 157 k/uL (150-450); WBC 6.9 k/uL (3.8-10.6)
[2019-06-30 06:53] LABS: Potassium 5.1 mmol/L (3.5-5.1)
[2019-06-30 07:23] LABS: Glucose,Whole Blood 117 mg/dL (75-99)
[2019-06-30] MEDS: ASPIRIN 81 MG PO SCH (08:16)
[2019-06-30] MEDS: INSULIN ASPART (NovoLOG) 100 UNIT/ML VIAL SQ SCH ×4 (08:18→20:38)
[2019-06-30] MEDS: NON FORMULARY DRUG (Prorenal + D 1 TAB) PO SCH (08:24)
[2019-06-30] MEDS: PANTOPRAZOLE 40 MG TABLET PO SCH (08:32)
[2019-06-30] MEDS: METOPROLOL TARTRATE 50 MG TAB PO SCH ×2 (08:32→20:37)
[2019-06-30] MEDS: FAMOTIDINE 20 MG TAB PO SCH (08:32)
[2019-06-30] MEDS: FUROSEMIDE 80 MG TAB PO SCH ×2 (08:32→16:27)
[2019-06-30] MEDS: CALCIUM ACETATE 667 MG TAB PO SCH ×3 (08:32→16:26)
[2019-06-30] MEDS: FENOFIBRATE 160 MG TAB PO SCH (08:32)
[2019-06-30] MEDS: levOCARNitine (WITH SUGAR) 100 MG/ML BOTTLE PO SCH ×3 (08:33→20:38)
--- NOTE | 2019-06-30 08:59 | P.PN ---
Subjective Patient is seen in follow-up for end-stage renal disease. Dyspnea is improved. Currently on 4 L nasal cannula. Scheduled for dialysis today. Vital signs are stable. General: The patient appeared well nourished and normally developed. HEENT: Head exam is unremarkable. Neck is without jugular venous distension. LUNGS: Breath sounds decreased. HEART: Rate and Rhythm are regular. First and second heart sounds normal. No murmurs, rubs or gallops. ABDOMEN: Nontender. EXTREMITITES: 1+ edema. Objective - Vital Signs Vital signs: Vital Signs Temp 97.7 F 06/30/19 05:00 Pulse 63 06/30/19 05:00 Resp 20 06/30/19 05:00 BP 131/60 06/30/19 05:00 Pulse Ox 99 06/30/19 05:00 Intake & Output 06/29/19 06/30/19 06/30/19 18:59 06:59 18:59 Intake Total 540 Output Total 100 Balance 540 -100 Weight 125.2 kg Intake: Oral 540 Output: Urine 100 Other: Voiding Method Urinal Urinal # Voids 0 # Bowel Movements 1 - Labs CBC & Chem 7: 06/30/19 05:53 06/30/19 05:53 Labs: Abnormal Lab Results - Last 24 Hours (Table) 06/29/19 06/29/19 06/29/19 Range/Units 11:34 16:40 20:38 RBC (4.30-5.90) m/uL Hgb (13.0-17.5) gm/dL Hct (39.0-53.0) % MCV (80.0-100.0) fL RDW (11.5-15.5) % Chloride (98-107) mmol/L BUN (9-20) mg/dL Creatinine (0.66-1.25) mg/dL Glucose (74-99) mg/dL POC Glucose (mg/dL) 220 H 170 H 170 H (75-99) mg/dL 06/30/19 06/30/19 06/30/19 Range/Units 05:53 05:53 07:18 RBC 3.30 L (4.30-5.90) m/uL Hgb 10.8 L (13.0-17.5) gm/dL Hct 34.5 L (39.0-53.0) % MCV 104.4 H (80.0-100.0) fL RDW 17.0 H (11.5-15.5) % Chloride 96 L (98-107) mmol/L BUN 93 H (9-20) mg/dL Creatinine 10.69 H* (0.66-1.25) mg/dL Glucose 135 H (74-99) mg/dL POC Glucose (mg/dL) 117 H (75-99) mg/dL Assessment and Plan Plan: Assessment: 1. End-stage renal disease maintained on hemodialysis on Sunday schedule. 2. Dyspnea secondary to volume overload. 3. Hypertension with chronic kidney disease. Controlled. 4. Chronic kidney disease mineral bone disease maintained on [place]. 5. Insulin-dependent diabetes mellitus. Plan: Hemodialysis today with goal 3-4 L ultrafiltration.
[2019-06-30 11:56] LABS: Glucose,Whole Blood 147 mg/dL (75-99)
--- NOTE | 2019-06-30 12:03 | US ---
EXAMINATION TYPE: US chest DATE OF EXAM: 06/30/2019 COMPARISON: Radiograph 06/27/2019 CLINICAL HISTORY: 69-year-old male pleural effusion. TECHNIQUE: Targeted ultrasound of the posterior lower bilateral hemithoraces EXAM MEASUREMENTS: Right Pleural Effusion pocket size: no fluid Left Pleural Effusion pocket size: 12.0 cm Left skin surface to fluid distance: 4.9 cm Pulmonologists are able to review the images in the patient?s EMR. IMPRESSIONS: 1. Moderate to large left pleural effusion. 2. No effusion on the right.
--- NOTE | 2019-06-30 13:22 | P.PN ---
Subjective Progress Note Date: 06/30/19 Principal diagnosis: 69-year-old male with Sunday hemodialysis came in as he didn't complete his hemodialysis here patient is comparing of shortness of breath and patient was thought to have fever although patient doesn't have fever at this time he doesn't have any cough. Chest x-ray did not show any significant pulmonary edema. But did show pleural effusion on the left side which is bit worse compared to yesterday compared to previous hospital physician patient does have pleural effusion in the past as well which appears to be chronic effusion previous CAT scan was concerning for cancer as there is a lymph node enlargement I'm repeating the CAT scan again. Nephrology was consulted. She is still little bit short of breath denied any cough and fever as mentioned above 06/29/2019 Patient the is awaiting CAT scan of the chest to rule out any mass lesion on the left side patient does have significant pleural effusion will undergo therapy can diagnostic thoracentesis tomorrow his respiratory status also improved patient probably will be discharged tomorrow after thoracentesis and these tests are along with the hemodialysis. Constitutional: Denied any fatigue denied any fever. Cardio vascular: denied any chest pain, palpitations Gastrointestinal denied any nausea vomiting Pulmonary: Denied any shortness of breath cough Neurologic denied any new focal deficits 06/30/2019 Patient is seen and evaluated in follow-up today quite lethargic but arousable. Patient is awaiting to have dialysis today. Patient currently receiving an ultrasound of the chest and will undergo thoracentesis tomorrow with interventional radiology. Currently no reports of chest pain, worsening shortness of breath, or palpitations. Patient is afebrile. No reports of nausea or vomiting and patient is tolerating diet. Patient will likely need an outpatient CAT scan of the chest to rule out any masses or lesions noted on the left side. Upon discharge patient will continue with home care in the outpatient setting. Objective - Vital Signs Vital signs: Vital Signs Temp 97.4 F L 06/30/19 12:04 Pulse 55 L 06/30/19 12:04 Resp 20 06/30/19 12:04 BP 137/75 06/30/19 12:04 Pulse Ox 100 06/30/19 12:04 Intake & Output 06/29/19 06/30/19 06/30/19 18:59 06:59 18:59 Intake Total 540 Output Total 100 Balance 540 -100 Weight 125.2 kg Intake: Oral 540 Output: Urine 100 Other: Voiding Method Urinal Urinal # Voids 0 2 # Bowel Movements 1 - Exam GENERAL: The patient is alert and oriented x3, not in any acute distress. Well developed, well nourished. HEENT: Pupils are round and equally reacting to light. EOMI. No scleral icterus. No conjunctival pallor. Normocephalic, atraumatic. No pharyngeal erythema. No thyromegaly. CARDIOVASCULAR: S1 and S2 present. No murmurs, rubs, or gallops. PULMONARY: Chest is clear to auscultation, no wheezing or crackles. ABDOMEN: Soft, nontender, nondistended, normoactive bowel sounds. No palpable organomegaly. MUSCULOSKELETAL: No joint swelling or deformity. EXTREMITIES: No cyanosis, clubbing, or pedal edema. NEUROLOGICAL: Gross neurological examination did not reveal any focal deficits. SKIN: No rashes. - Labs CBC & Chem 7: 06/30/19 05:53 06/30/19 05:53 Labs: Abnormal Lab Results - Last 24 Hours (Table) 06/29/19 06/29/19 06/30/19 Range/Units 16:40 20:38 05:53 RBC 3.30 L (4.30-5.90) m/uL Hgb 10.8 L (13.0-17.5) gm/dL Hct 34.5 L (39.0-53.0) % MCV 104.4 H (80.0-100.0) fL RDW 17.0 H (11.5-15.5) % Chloride (98-107) mmol/L BUN (9-20) mg/dL Creatinine (0.66-1.25) mg/dL Glucose (74-99) mg/dL POC Glucose (mg/dL) 170 H 170 H (75-99) mg/dL 06/30/19 06/30/19 06/30/19 Range/Units 05:53 07:18 11:53 RBC (4.30-5.90) m/uL Hgb (13.0-17.5) gm/dL Hct (39.0-53.0) % MCV (80.0-100.0) fL RDW (11.5-15.5) % Chloride 96 L (98-107) mmol/L BUN 93 H (9-20) mg/dL Creatinine 10.69 H* (0.66-1.25) mg/dL Glucose 135 H (74-99) mg/dL POC Glucose (mg/dL) 117 H 147 H (75-99) mg/dL Assessment and Plan Assessment: -Shortness of breath secondary to volume overload and missing hemodialysis. Patient did undergo emergent hemodialysis. Patient had a chest ultrasound today to monitor left pleural effusion and will likely undergo thoracentesis with interventional radiology sometime tomorrow. Patient will need outpatient CAT scan of the chest to determine if there is a mass or lesion on that left side. -End-stage renal disease, dialysis dependent. Nephrology is following the brielle sinha -Chronic venous stasis ulcers in both legs -Paroxysmal atrial fibrillation presently rate controlled. Patient is on aspirin with an inability to handle anti-coagulation -Anemia of chronic kidney disease -Type 2 diabetes mellitus continue with present regimen titration depending on his insulin requirements -Chronic low back pain -Depression -Gastroesophageal reflux disease Plan: Patient is to continue with current medications and will undergo left side thoracentesis tomorrow with interventional radiology. Patient will continue with hemodialysis and currently waiting on her treatment at this time. Will continue to monitor closely. Further recommendations to follow. Possible discharge in 24 hours.
[2019-06-30 17:09] LABS: Glucose,Whole Blood 150 mg/dL (75-99)
[2019-06-30 20:06] LABS: Glucose,Whole Blood 242 mg/dL (75-99)
[2019-06-30] MEDS: INSULIN DETEMIR (LEVEMIR) 100 UNIT/ML SYR SQ SCH (21:16)
[2019-06-30 23:02] VITALS: TEMP 97.4
[2019-07-01 05:59] VITALS: RESP 20
[2019-07-01 07:06] LABS: Glucose,Whole Blood 71 mg/dL (75-99)
[2019-07-01] MEDS: ASPIRIN 81 MG PO SCH (07:18)
[2019-07-01] MEDS: CALCIUM ACETATE 667 MG TAB PO SCH ×3 (07:18→13:06)
[2019-07-01] MEDS: INSULIN ASPART (NovoLOG) 100 UNIT/ML VIAL SQ SCH ×2 (07:18→13:01)
[2019-07-01] MEDS: NON FORMULARY DRUG (Prorenal + D 1 TAB) PO SCH (07:19)
[2019-07-01] MEDS: FUROSEMIDE 80 MG TAB PO SCH (07:30)
[2019-07-01] MEDS: METOPROLOL TARTRATE 50 MG TAB PO SCH (07:30)
[2019-07-01] MEDS: PANTOPRAZOLE 40 MG TABLET PO SCH (07:30)
[2019-07-01] MEDS: FENOFIBRATE 160 MG TAB PO SCH (07:30)
[2019-07-01] MEDS: levOCARNitine (WITH SUGAR) 100 MG/ML BOTTLE PO SCH (07:31)
--- NOTE | 2019-07-01 08:53 | P.PN ---
Subjective Patient is seen in follow-up for end-stage renal disease. Dyspnea is improved. Tolerated hemodialysis yesterday with 2.5 L ultrafiltration. Scheduled for thoracentesis today. Vital signs are stable. General: The patient appeared well nourished and normally developed. HEENT: Head exam is unremarkable. Neck is without jugular venous distension. LUNGS: Breath sounds decreased. HEART: Rate and Rhythm are regular. First and second heart sounds normal. No murmurs, rubs or gallops. ABDOMEN: Nontender. EXTREMITITES: 1+ edema. Objective - Vital Signs Vital signs: Vital Signs Temp 97.4 F L 07/01/19 05:00 Pulse 66 07/01/19 05:00 Resp 20 07/01/19 05:00 BP 147/65 07/01/19 05:00 Pulse Ox 99 07/01/19 05:00 Intake & Output 06/30/19 07/01/19 07/01/19 18:59 06:59 18:59 Intake Total 350 Output Total 2500 Balance -2500 350 Intake: Oral 350 Output: Hemodialysis 2500 Other: Voiding Method Urinal Urinal # Voids 0 1 # Bowel Movements 0 - Labs CBC & Chem 7: 06/30/19 05:53 06/30/19 05:53 Labs: Abnormal Lab Results - Last 24 Hours (Table) 06/30/19 06/30/19 06/30/19 Range/Units 11:53 17:00 19:55 POC Glucose (mg/dL) 147 H 150 H 242 H (75-99) mg/dL 07/01/19 Range/Units 07:03 POC Glucose (mg/dL) 71 L (75-99) mg/dL Assessment and Plan Plan: Assessment: 1. End-stage renal disease maintained on hemodialysis on Sunday schedule. 2. Dyspnea secondary to volume overload. 3. Hypertension with chronic kidney disease. Controlled. 4. Chronic kidney disease mineral bone disease maintained on [place]. 5. Insulin-dependent diabetes mellitus. Plan: Hemodialysis tomorrow. Scheduled for left-sided thoracentesis today.
[2019-07-01] MEDS ORDERED: FAMOTIDINE 20 MG TAB PO SCH (09:00)
[2019-07-01 12:33] VITALS: PULSE 78
--- NOTE | 2019-07-01 12:57 | XR ---
EXAMINATION TYPE: XR chest 1V DATE OF EXAM: 07/01/2019 HISTORY: Status post thoracentesis COMPARISON: 06/27/2019 TECHNIQUE: Single view of the chest is submitted. FINDINGS: No evidence for left-sided pneumothorax. Left basilar pleural effusion and/or underlying infiltrate a nd/or atelectasis has diminished in size. The heart is stable. Hilar and mediastinal structures are within normal limits. Degenerative changes are seen of the dorsal spine. IMPRESSION: 1. No evidence for left-sided pneumothorax.
[2019-07-01 13:39] VITALS: BP 142/77
--- NOTE | 2019-07-01 14:53 | P.DS ---
Providers Date of admission: 06/29/19 08:17 Expected date of discharge: 07/01/19 Attending physician: Yuki Roldan Consults: 06/27/19 17:49 Consult Physician Urgent Consulting Provider: Sandra Chowdhury Consult Reason/Comments: Chronic renal failure, left pleural effusion Do you want consulting provider notified?: Yes Primary care physician: Nell Rosen [facility] Course: Final diagnosis -Shortness of breath secondary to volume overload and missing hemodialysis. -End-stage renal disease, dialysis dependent -Chronic venous stasis ulcers in both legs -Paroxysmal atrial fibrillation presently rate controlled -Anemia of chronic kidney disease -Type 2 diabetes mellitus -Chronic low back pain -Depression -Gastroesophageal reflux disease Discharge disposition Patient is being discharged in a stable condition with guarded prognosis to home and will follow-up with Dr. Nell Rosen in the outpatient setting. Patient will continue with hemodialysis and is scheduled for one tomorrow and continued for Sunday/Sunday/Sunday. Total time taken is 35 minutes. History of present illness This is a 69-year-old male who was recently admitted with increasing shortness of breath and missed dialysis. Patient does have chronic pleural effusions of the left side and underwent therapeutic thoracentesis today with interventional radiology. Patient received hemodialysis yesterday and is to continue on the Sunday/Sunday/Sunday with his next treatment being tomorrow. Status post thoracentesis patient underwent chest x-ray showing no left-sided pneumothorax. Patient will need to follow-up with Dr. Nell Rosen in the outpatient setting to discuss possible CT of the chest to determine if there is an underlying mass or lesion is noted in the upper left lobe. Currently no reports of chest pain, worsening shortness of breath, or palpitations. Patient is afebrile. No reports of nausea or vomiting and patient is tolerating diet. Patient states he will continue with home care in the outpatient setting. Patient is being discharged today. On exam vital signs are stable. Temp is 97.4F, pulse is 78, respirations are 20, blood pressure is 142/77, oxygen saturation is 100% on room air. Cardio S1, S2 are present. Respiratory system shows diminished breath sounds at the bases with a few scattered rhonchi noted. Abdomen is soft, obese, nontender. Nervous system shows no focal deficits. Please refer to medication reconciliation sheet for a list of medications. Patient Condition at Discharge: Stable Plan - Discharge Summary Discharge Rx Participant: No New Discharge Prescriptions: Continue NIFEdipine [NIFEdipine ER] 60 mg PO DAILY Etanercept [Enbrel] 50 mg SQ LUU Gemfibrozil [Lopid] 600 mg PO BID Aspirin EC [Ecotrin Low Dose] 81 mg PO DAILY Budesonide-Formot 160-4.5 Mcg [Symbicort 160-4.5 Mcg Inhaler] 2 puff INHALATION RT-BID Omeprazole 40 mg PO DAILY Metoprolol Tartrate [Lopressor] 50 mg PO BID Calcium Acetate [PhosLo] 1,334 mg PO TID-W/MEALS Magnebind 250/300mg 1 tab PO BID-W/MEALS Prorenal + D 1 tab PO DAILY Albuterol Nebulized [Ventolin Nebulized] 2.5 mg INHALATION RT-QID Furosemide [Lasix] 80 mg PO BID@0900,1600 tab Famotidine [Pepcid] 20 mg PO BID #30 tablet ALPRAZolam [Xanax] 0.25 mg PO TID PRN 3 Days #9 tab PRN Reason: anxiety Insulin Lispro [humaLOG Kwikpen] See Protocol SQ ACHS Insulin Glargine,Hum.rec.anlog [Lantus Solostar] 35 unit SQ HS Cephalexin [Keflex] 500 mg PO Q12HR 7 Days #14 cap Acetaminophen Tab [Tylenol] 500 mg PO Q6HR PRN tab PRN Reason: Fever And/ Or Pain levOCARNitine [Levocarnitine] 330 mg PO TID Discharge Medication List Etanercept [Enbrel] 50 mg SQ LUU 06/12/14 [History] NIFEdipine [NIFEdipine ER] 60 mg PO DAILY 06/12/14 [History] Aspirin EC [Ecotrin Low Dose] 81 mg PO DAILY 07/31/18 [History] Gemfibrozil [Lopid] 600 mg PO BID 07/31/18 [History] Budesonide-Formot 160-4.5 Mcg [Symbicort 160-4.5 Mcg Inhaler] 2 puff INHALATION RT-BID 02/26/19 [History] Calcium Acetate [PhosLo] 1,334 mg PO TID-W/MEALS 02/26/19 [History] Magnebind 250/300mg 1 tab PO BID-W/MEALS 02/26/19 [History] Metoprolol Tartrate [Lopressor] 50 mg PO BID 02/26/19 [History] Omeprazole 40 mg PO DAILY 02/26/19 [History] Prorenal + D 1 tab PO DAILY 02/26/19 [History] Albuterol Nebulized [Ventolin Nebulized] 2.5 mg INHALATION RT-QID 03/17/19 [History] Famotidine [Pepcid] 20 mg PO BID #30 tablet 03/20/19 [Rx] Furosemide [Lasix] 80 mg PO BID@0900,1600 tab 03/20/19 [Rx] ALPRAZolam [Xanax] 0.25 mg PO TID PRN 3 Days #9 tab 05/17/19 [Rx] Insulin Glargine,Hum.rec.anlog [Lantus Solostar] 35 unit SQ HS 06/16/19 [History] Insulin Lispro [humaLOG Kwikpen] See Protocol SQ ACHS 06/16/19 [History] Acetaminophen Tab [Tylenol] 500 mg PO Q6HR PRN tab 06/19/19 [Rx] Cephalexin [Keflex] 500 mg PO Q12HR 7 Days #14 cap 06/19/19 [Rx] levOCARNitine [Levocarnitine] 330 mg PO TID 06/27/19 [History] Follow up Appointment(s)/Referral(s): Nell Rosen MD [Primary Care Provider] - 1-2 days (please call office to set up appt.) [facility], [NON-STAFF] - 1 Week Patient Instructions/Handouts: Chronic Kidney Disease (DC), Thoracentesis (DC) Activity/Diet/Wound Care/Special Instructions: Activity Limited until follow-up Follow-up with primary care provider Continue with dialysis Continue current diet Need outpatient follow-up for CT of the chest Discharge Disposition: HOME SELF-CARE
[2019-07-01 15:06] LABS: Color,BF Yellow
[2019-07-01 15:07] LABS: Appearance,BF Clear
[2019-07-01 15:28] LABS: Nucleated Cells, Body Fluid 49 /uL; RBC, Body Fluid 0 /uL
[2019-07-01 15:32] LABS: Mononuclear WBC,Body Fluid 2 %; Polynuclear WBC,Body Fluid 97 %; Total Cells Counted,Body Fluid 100
[2019-07-01 20:33] LABS: Glucose, BF Source Thoracentesis Fluid; Glucose, Body Fluid 122 mg/dL; LDH, Body Fluid Source Thoracentesis Fluid; Total Protein, Body Fluid 3700 mg/dL
--- NOTE | 2019-07-02 08:15 | US ---
Ultrasound-guided therapeutic and diagnostic thoracentesis DATE OF EXAM: 07/01/2019 CLINICAL HISTORY: diganostic and therapeutic The procedure was discussed with the patient. The risks, complications, benefits, and alternatives we re discussed and any questions were answered. Informed consent was obtained. The patient was placed supine on the ultrasound table and prepped and draped in the usual sterile fas hion. All elements of maximal barrier and sterile technique were utilized. Under ultrasound guidance, access into the pleural space was obtained, via the thoracentesis catheter system and direct ultrasound guidance.Maylin roximately 1250 liters of straw-colored fluid was removed. The patient was stable throughout the procedure and remained stable upon discharge from Department of Radiology. IMPRESSION: 1. Successful therapeutic and diagnostic thoracentesis under ultrasound guidance.
== END 2019-07-01 13:44 | disposition home or self-care (01) | DRG 640 ==
LOC: EC 14:46 → 6NMEDSUR 17:43 → OBSVTOIN 06-29 08:17
PROVIDERS: ADMIT Internal Medicine; ATTEND Internal Medicine
PROC: 0W9B3ZZ Drainage of Left Pleural Cavity, Percutaneous Approach (ICD-10-PCS; principal; 2019-07-01)
DX: E87.79 Other fluid overload (principal); N18.6 End stage renal disease; I13.2 Hypertensive heart and chronic kidney disease with heart failure and with stage 5 chronic kidney disease, or end stage renal disease; L97.919 Non-pressure chronic ulcer of unspecified part of right lower leg with unspecified severity; L03.116 Cellulitis of left lower limb; L03.115 Cellulitis of right lower limb; D63.1 Anemia in chronic kidney disease; E11.22 Type 2 diabetes mellitus with diabetic chronic kidney disease; E11.319 Type 2 diabetes mellitus with unspecified diabetic retinopathy without macular edema; E11.621 Type 2 diabetes mellitus with foot ulcer; E11.65 Type 2 diabetes mellitus with hyperglycemia; E66.9 Obesity, unspecified; Z68.34 Body mass index [BMI] 34.0-34.9, adult; F32.9 Major depressive disorder, single episode, unspecified; F40.240 Claustrophobia; G40.909 Epilepsy, unspecified, not intractable, without status epilepticus; G89.29 Other chronic pain; H54.8 Legal blindness, as defined in USA; I48.0 Paroxysmal atrial fibrillation; I50.9 Heart failure, unspecified; I83.019 Varicose veins of right lower extremity with ulcer of unspecified site; I83.029 Varicose veins of left lower extremity with ulcer of unspecified site; J45.909 Unspecified asthma, uncomplicated; K21.9 Gastro-esophageal reflux disease without esophagitis; L97.509 Non-pressure chronic ulcer of other part of unspecified foot with unspecified severity; M06.9 Rheumatoid arthritis, unspecified; M89.8X9 Other specified disorders of bone, unspecified site; R09.02 Hypoxemia; Z79.4 Long term (current) use of insulin; Z79.51 Long term (current) use of inhaled steroids; Z79.82 Long term (current) use of aspirin; Z79.899 Other long term (current) drug therapy; Z83.3 Family history of diabetes mellitus; Z86.79 Personal history of other diseases of the circulatory system; Z87.891 Personal history of nicotine dependence; Z99.2 Dependence on renal dialysis; E11.40 Type 2 diabetes mellitus with diabetic neuropathy, unspecified; Z98.42 Cataract extraction status, left eye; Z98.41 Cataract extraction status, right eye; Z87.01 Personal history of pneumonia (recurrent); M54.5 Low back pain
CPT/HCPCS: 32555; 36415; 71045; 71046; 76604; 80048; 80053; 82945; 83605; 83615; 83735; 83880; 84157; 84484; 85025; 85027; 85610; 85730; 87070; 87075; 87205; 88108; 88305; 89050; 90935; 93005; 99285

== ENCOUNTER 2019-07-06 04:02 | Inpatient (IN) | payer MEDICARE ==
[2019-07-06 04:50] LABS: Anisocytosis Slight; Basophils # (A) 0.1 k/uL (0-0.2); Basophils % (A) 1 %; Eosinophils # (A) 0.2 k/uL (0-0.7); Eosinophils % (A) 3 %; HCT 34.3 % (39.0-53.0); HGB 10.4 gm/dL (13.0-17.5); Hypochromasia Slight; Lymphocytes # (A) 0.5 k/uL (1.0-4.8); Lymphocytes % (A) 7 %; MCH 31.6 pg (25.0-35.0); MCHC 30.4 g/dL (31.0-37.0); MCV 104.1 fL (80.0-100.0); Macrocytosis Moderate; Mean Platelet Volume 9.7; Monocytes # (A) 0.4 k/uL (0-1.0); Monocytes % (A) 6 %; Neutrophils % (A) 82 %; Platelet Count 169 k/uL (150-450); RDW 16.7 % (11.5-15.5); WBC 7.3 k/uL (3.8-10.6)
[2019-07-06 05:14] LABS: Albumin 3.8 g/dL (3.5-5.0); Calcium 8.3 mg/dL (8.4-10.2); Total Bilirubin 0.6 mg/dL (0.2-1.3); Total Protein 7.5 g/dL (6.3-8.2)
--- NOTE | 2019-07-06 05:30 | XR ---
EXAMINATION TYPE: XR chest 1V portable DATE OF EXAM: 07/06/2019 COMPARISON: 07/01/2019 HISTORY: Short of breath TECHNIQUE: Single view. FINDINGS: There is more than 50% opacification left hemithorax. There is coarse interstitial pulmonary density. Heart appears enlarged. There are chest leads. There is no obvious heart failure. IMPRESSION: Large Left pleural effusion and left lower lobe pulmonary consolidation slightly worse th an last exam. No definite heart failure.
[2019-07-06 05:34] LABS: Potassium 6.8 mmol/L (3.5-5.1)
[2019-07-06 05:53] LABS: INR 1.1 (<1.2); Partial Thromboplastin Time 26.2 sec (22.0-30.0); Prothrombin Time 11.5 sec (9.0-12.0)
[2019-07-06] MEDS ORDERED: NALOXONE 0.4 MG/ML 1 ML VIAL IV PRN (06:01)
[2019-07-06] MEDS: SODIUM CHLORIDE 0.9% 1,000 ML IV SCH (06:11)
[2019-07-06] MEDS ORDERED: DEXTROSE 50% SYRINGE 50 ML IVP STA (06:30)
[2019-07-06] MEDS ORDERED: CALCIUM GLUCONATE 1 GM in SODIUM CHLORIDE 0.9% 100 ML IVPB ONE (06:30)
[2019-07-06] MEDS ORDERED: INSULIN REGULAR 100 UNIT/ML VIAL IV STA (06:30)
[2019-07-06] MEDS ORDERED: SODIUM BICARB 8.4% 50 ML SYR (1 MEQ/ML) IV STA (06:31)
--- NOTE | 2019-07-06 06:53 | ED ---
SOB HPI - General Chief Complaint: Shortness of Breath Stated Complaint: Fall Time Seen by Provider: 07/06/19 04:03 Source: patient, EMS Mode of arrival: EMS Limitations: no limitations - History of Present Illness Initial Comments: This patient is 69-year-old man who presents with complaint of worsening shortness of breath over the past days. The patient also notes that he did miss his last dialysis session as she was not feeling well. Patient also notes that he did have drainage of a pleural effusion recently but feels that his breathing has worsened since this occurred. Patient denies fever or chills. He is not having a productive cough. No leg pain or swelling. MD Complaint: shortness of breath -: days(s) Consistency: constant Improves With: upright position Worsens With: lying flat Known History Of: other (Renal failure) - Related Data Home Medications Medication Instructions Recorded Confirmed Etanercept [Enbrel] 50 mg SQ LUU 06/12/14 07/06/19 NIFEdipine [NIFEdipine ER] 60 mg PO DAILY 06/12/14 07/06/19 Aspirin EC [Ecotrin Low Dose] 81 mg PO DAILY 07/31/18 07/06/19 Gemfibrozil [Lopid] 600 mg PO BID 07/31/18 07/06/19 Budesonide-Formot 160-4.5 Mcg 2 puff INHALATION RT-BID 02/26/19 07/06/19 [Symbicort 160-4.5 Mcg Inhaler] Calcium Acetate [PhosLo] 1,334 mg PO TID-W/MEALS 02/26/19 07/06/19 Magnebind 250/300mg 1 tab PO BID-W/MEALS 02/26/19 07/06/19 Metoprolol Tartrate [Lopressor] 50 mg PO BID 02/26/19 07/06/19 Omeprazole 40 mg PO DAILY 02/26/19 07/06/19 Prorenal + D 1 tab PO DAILY 02/26/19 07/06/19 Albuterol Nebulized [Ventolin 2.5 mg INHALATION RT-QID 03/17/19 07/06/19 Nebulized] Insulin Glargine,Hum.rec.anlog 35 unit SQ HS 06/16/19 07/06/19 [Lantus Solostar] Insulin Lispro [humaLOG Kwikpen] See Protocol SQ ACHS 06/16/19 07/06/19 levOCARNitine [Levocarnitine] 330 mg PO TID 06/27/19 07/06/19 Previous Rx's Medication Instructions Recorded Famotidine [Pepcid] 20 mg PO BID #30 tablet 03/20/19 Furosemide [Lasix] 80 mg PO BID@0900,1600 tab 03/20/19 ALPRAZolam [Xanax] 0.25 mg PO TID PRN 3 Days #9 tab 05/17/19 Acetaminophen Tab [Tylenol] 500 mg PO Q6HR PRN tab 06/19/19 Allergies Allergy/AdvReac Type Severity Reaction Status Date / Time sulfamethoxazole AdvReac Unknown Nausea & Verified 07/06/19 09:58 [From Bactrim] Vomiting trimethoprim [From Bactrim] AdvReac Unknown Nausea & Verified 07/06/19 09:58 Vomiting Review of Systems ROS Statement: Those systems with pertinent positive or pertinent negative responses have been documented in the HPI. ROS Other: All systems not noted in ROS Statement are negative. Constitutional: Denies: fever, chills Respiratory: Reports: dyspnea. Denies: cough, wheezes, hemoptysis Cardiovascular: Reports: orthopnea. Denies: chest pain, palpitations, edema, syncope Gastrointestinal: Denies: abdominal pain, vomiting, diarrhea Musculoskeletal: Denies: back pain Skin: Denies: rash Neurological: Denies: headache, weakness, numbness Past Medical History Past Medical History: Atrial Fibrillation, Asthma, Heart Failure, Diabetes Mellitus, Dialysis, Eye Disorder, GERD/Reflux, Hypertension, Osteoarthritis (OA), Pneumonia, Renal Disease, Rheumatoid Arthritis (RA), Seizure Disorder Additional Past Medical History / Comment(s): ESRD with hemodialysis, mineral b one disease, chronic anemia, IDDM type II, diabetic retinopathy-"legally blind", chronic neuropathy occasionally in toes bilateral feet and left leg, bilateral lower leg edema, cellulitis bilateral lower legs, past leg/foot wounds and currently has left medial leg wounds that have scabbed over and no longer goes to [facility], paroxysmal Afib, 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 History of Any Multi-Drug Resistant Organisms: None Reported Past Surgical History: Hernia Repair, Orthopedic Surgery Additional Past Surgical History / Comment(s): Bilateral cataract surgery, insertion dialysis catheter left arm then had a procedure done to dialysis catheter at [facility]-cannot recall exactly what was done, PICC line insertion/removed, bilateral inguinal hernina repairs, colonoscopy/polypectomy, R shoulder rotator cuff repair, debridements bilateral feet. Past Anesthesia/Blood Transfusion Reactions: No Reported Reaction Additional Past Anesthesia/Blood Transfusion Reaction / Comment(s): Pt received blood in past without reaction. Past Psychological History: Anxiety, Depression Smoking Status: Former smoker Past Alcohol Use History: None Reported Past Drug Use History: None Reported - Past Family History Mother Family Medical History: Diabetes Mellitus Father Family Medical History: Cancer Additional Family Medical History / Comment(s): Metastatic cancer. Pt cannot recall primary. General Exam Limitations: no limitations General appearance: alert, in no apparent distress Head exam: Present: atraumatic, normocephalic Eye exam: Present: normal appearance. Absent: scleral icterus, conjunctival injection ENT exam: Present: normal oropharynx Neck exam: Present: normal inspection, full ROM Respiratory exam: Present: decreased breath sounds (At the lower left lung albarran). Absent: respiratory distress, wheezes, rales, rhonchi, stridor Cardiovascular Exam: Present: regular rate, irregular rhythm, normal heart sounds. Absent: systolic murmur, diastolic murmur, rubs, gallop GI/Abdominal exam: Present: soft. Absent: distended, tenderness, guarding, rebound, rigid, mass Extremities exam: Present: full ROM, normal capillary refill, pedal edema, other (The patient does have stasis ulcer dressings that were placed yesterday.). Absent: tenderness, calf tenderness Back exam: Present: normal inspection. Absent: CVA tenderness (R), CVA tenderness (L) Neurological exam: Present: alert Skin exam: Present: warm, dry, intact, normal color. Absent: rash Course Vital Signs 07/06/19 07/06/19 04:03 06:25 Temperature 97.7 F Pulse Rate 72 74 Respiratory 20 16 Rate Blood Pressure 124/74 109/73 O2 Sat by Pulse 99 97 Oximetry Medical Decision Making - Medical Decision Making Patient is 69-year-old man presenting with complaint of dyspnea. He has missed previous dialysis session and is found to be hyperkalemic. In addition on his chest x-ray, it appears there has been recurrence of the left pleural effusion. The patient case discussed with Dr. Castillo who will arrange to have the patient receive dialysis today, and he is also given the hyperkalemia medications. Patient will have pulmonology consultation for the recurrent effusion. - Lab Data Result diagrams: 07/06/19 04:20 07/07/19 06:35 Lab Results 07/06/19 07/06/19 07/06/19 Range/Units 04:20 04:20 04:20 WBC 7.3 (3.8-10.6) k/uL RBC 3.30 L (4.30-5.90) m/uL Hgb 10.4 L (13.0-17.5) gm/dL Hct 34.3 L (39.0-53.0) % MCV 104.1 H (80.0-100.0) fL MCH 31.6 (25.0-35.0) pg MCHC 30.4 L (31.0-37.0) g/dL RDW 16.7 H (11.5-15.5) % Plt Count 169 (150-450) k/uL Neutrophils % 82 % Lymphocytes % 7 % Monocytes % 6 % Eosinophils % 3 % Basophils % 1 % Neutrophils # 6.0 (1.3-7.7) k/uL Lymphocytes # 0.5 L (1.0-4.8) k/uL Monocytes # 0.4 (0-1.0) k/uL Eosinophils # 0.2 (0-0.7) k/uL Basophils # 0.1 (0-0.2) k/uL Hypochromasia Slight Anisocytosis Slight Macrocytosis Moderate PT 11.5 (9.0-12.0) sec INR 1.1 (<1.2) APTT 26.2 (22.0-30.0) sec Sodium 138 (137-145) mmol/L Potassium 6.8 H* (3.5-5.1) mmol/L Chloride 99 (98-107) mmol/L Carbon Dioxide 15 L (22-30) mmol/L Anion Gap 24 mmol/L BUN 134 H* (9-20) mg/dL Creatinine 13.92 H* (0.66-1.25) mg/dL Est GFR (CKD-EPI)AfAm 4 (>60 ml/min/1.73 sqM) Est GFR (CKD-EPI)NonAf 3 (>60 ml/min/1.73 sqM) Glucose 218 H (74-99) mg/dL Plasma Lactic Acid John (0.7-2.0) mmol/L Calcium 8.3 L (8.4-10.2) mg/dL Total Bilirubin 0.6 (0.2-1.3) mg/dL AST 18 (17-59) U/L ALT 7 (4-49) U/L Alkaline Phosphatase 107 (38-126) U/L Troponin I (0.000-0.034) ng/mL NT-Pro-B Natriuret Pep pg/mL Total Protein 7.5 (6.3-8.2) g/dL Albumin 3.8 (3.5-5.0) g/dL 07/06/19 07/06/19 07/06/19 Range/Units 04:20 04:20 04:20 WBC (3.8-10.6) k/uL RBC (4.30-5.90) m/uL Hgb (13.0-17.5) gm/dL Hct (39.0-53.0) % MCV (80.0-100.0) fL MCH (25.0-35.0) pg MCHC (31.0-37.0) g/dL RDW (11.5-15.5) % Plt Count (150-450) k/uL Neutrophils % % Lymphocytes % % Monocytes % % Eosinophils % % Basophils % % Neutrophils # (1.3-7.7) k/uL Lymphocytes # (1.0-4.8) k/uL Monocytes # (0-1.0) k/uL Eosinophils # (0-0.7) k/uL Basophils # (0-0.2) k/uL Hypochromasia Anisocytosis Macrocytosis PT (9.0-12.0) sec INR (<1.2) APTT (22.0-30.0) sec Sodium (137-145) mmol/L Potassium (3.5-5.1) mmol/L Chloride (98-107) mmol/L Carbon Dioxide (22-30) mmol/L Anion Gap mmol/L BUN (9-20) mg/dL Creatinine (0.66-1.25) mg/dL Est GFR (CKD-EPI)AfAm (>60 ml/min/1.73 sqM) Est GFR (CKD-EPI)NonAf (>60 ml/min/1.73 sqM) Glucose (74-99) mg/dL Plasma Lactic Acid John 1.5 (0.7-2.0) mmol/L Calcium (8.4-10.2) mg/dL Total Bilirubin (0.2-1.3) mg/dL AST (17-59) U/L ALT (4-49) U/L Alkaline Phosphatase (38-126) U/L Troponin I 0.018 (0.000-0.034) ng/mL NT-Pro-B Natriuret Pep 54727 pg/mL Total Protein (6.3-8.2) g/dL Albumin (3.5-5.0) g/dL - EKG Data -: EKG Interpreted by Nm EKG shows normal: intervals (QRS duration is prolonged consistent with the left bundle-branch block), QRS complexes (Left Bundle-branch block) Rate: normal (Rate approximate 77 bpm) Interpretation: other (Atrial fibrillation) Critical Care Time Critical Care Time: Yes (35 minutes) Disposition Clinical Impression: Atrial fibrillation, Hyperkalemia, Pleural effusion on left Disposition: ADMITTED IP TO THIS [facility] Condition: Serious
[2019-07-06] MEDS ORDERED: ETANERCEPT 50 MG SQ SCH (09:00)
--- NOTE | 2019-07-06 10:33 | P.NPCON ---
History of Present Illness - Reason for Consult end stage renal disease - History of Present Illness Reason for consultation: End-stage renal disease History of present illness: Patient is a 69-year-old male seen in renal consultation for end-stage renal disease. He is maintained on hemodialysis on Sunday schedule. Patient was admitted here last week and underwent left-sided thoracentesis with 1.2 L drained. Patient was subsequently discharged home but did not go to hemodialysis on Sunday. Patient states he felt weak. He also stated that he had a fever. He denies chest pain or shortness of breath at this time. Chest x-ray shows large left-sided pleural effusion. Hemodynamically stable. He was afebrile on admission. No vomiting or diarrhea. Patient's potassium level was 6.8 on admission which was medically treated. He was also scheduled to undergo emergent hemodialysis which is currently receiving. Vital signs are stable. General: The patient appeared well nourished and normally developed. HEENT: Head exam is unremarkable. Neck is without jugular venous distension. LUNGS: Breath sounds decreased. HEART: Rate and Rhythm are regular. ABDOMEN: Nontender. EXTREMITITES: 1+ edema. Wrapped. Past Medical History Past Medical History: Atrial Fibrillation, Asthma, Heart Failure, Diabetes Mellitus, Dialysis, Eye Disorder, GERD/Reflux, Hypertension, Osteoarthritis (OA), Pneumonia, Renal Disease, Rheumatoid Arthritis (RA), Seizure Disorder Additional Past Medical History / Comment(s): ESRD with hemodialysis, mineral bone disease, chronic anemia, IDDM type II, diabetic retinopathy-"legally blin d", chronic neuropathy occasionally in toes bilateral feet and left leg, bilateral lower leg edema, cellulitis bilateral lower legs, past leg/foot wounds and currently has left medial leg wounds that have scabbed over and no longer goes to [facility], paroxysmal Afib, 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 History of Any Multi-Drug Resistant Organisms: None Reported Past Surgical History: Hernia Repair, Orthopedic Surgery Additional Past Surgical History / Comment(s): Bilateral cataract surgery, insertion dialysis catheter left arm then had a procedure done to dialysis catheter at [facility]-cannot recall exactly what was done, PICC line insertion/removed, bilateral inguinal hernina repairs, colonoscopy/polypectomy, R shoulder rotator cuff repair, debridements bilateral feet. Past Anesthesia/Blood Transfusion Reactions: No Reported Reaction Additional Past Anesthesia/Blood Transfusion Reaction / Comment(s): Pt received blood in past without reaction. Past Psychological History: Anxiety, Depression Smoking Status: Former smoker Past Alcohol Use History: None Reported Past Drug Use History: None Reported - Past Family History Mother Family Medical History: Diabetes Mellitus Father Family Medical History: Cancer Additional Family Medical History / Comment(s): Metastatic cancer. Pt cannot recall primary. Medications and Allergies Home Medications Medication Instructions Recorded Confirmed Type Etanercept [Enbrel] 50 mg SQ LUU 06/12/14 07/06/19 History NIFEdipine [NIFEdipine ER] 60 mg PO DAILY 06/12/14 07/06/19 History Aspirin EC [Ecotrin Low Dose] 81 mg PO DAILY 07/31/18 07/06/19 History Gemfibrozil [Lopid] 600 mg PO BID 07/31/18 07/06/19 History Budesonide-Formot 160-4.5 Mcg 2 puff INHALATION RT-BID 02/26/19 07/06/19 History [Symbicort 160-4.5 Mcg Inhaler] Calcium Acetate [PhosLo] 1,334 mg PO TID-W/MEALS 02/26/19 07/06/19 History Magnebind 250/300mg 1 tab PO BID-W/MEALS 02/26/19 07/06/19 History Metoprolol Tartrate [Lopressor] 50 mg PO BID 02/26/19 07/06/19 History Omeprazole 40 mg PO DAILY 02/26/19 07/06/19 History Prorenal + D 1 tab PO DAILY 02/26/19 07/06/19 History Albuterol Nebulized [Ventolin 2.5 mg INHALATION RT-QID 03/17/19 07/06/19 History Nebulized] Famotidine [Pepcid] 20 mg PO BID #30 tablet 03/20/19 07/06/19 Rx Furosemide [Lasix] 80 mg PO BID@0900,1600 tab 03/20/19 07/06/19 Rx ALPRAZolam [Xanax] 0.25 mg PO TID PRN 3 Days #9 tab 05/17/19 07/06/19 Rx Insulin Glargine,Hum.rec.anlog 35 unit SQ HS 06/16/19 07/06/19 History [Lantus Solostar] Insulin Lispro [humaLOG Kwikpen] See Protocol SQ ACHS 06/16/19 07/06/19 History Acetaminophen Tab [Tylenol] 500 mg PO Q6HR PRN tab 06/19/19 07/06/19 Rx levOCARNitine [Levocarnitine] 330 mg PO TID 06/27/19 07/06/19 History levOCARNitine [Levocarnitine] 330 mg PO TID-W/MEALS 07/06/19 07/06/19 History Allergies Allergy/AdvReac Type Severity Reaction Status Date / Time sulfamethoxazole AdvReac Unknown Nausea & Verified 07/06/19 09:58 [From Bactrim] Vomiting trimethoprim [From Bactrim] AdvReac Unknown Nausea & Verified 07/06/19 09:58 Vomiting Physical Exam Vitals: Vital Signs Temp Pulse Resp BP Pulse Ox 07/06/19 06:25 74 16 109/73 97 07/06/19 04:03 97.7 F 72 20 124/74 99 Intake and Output 07/05/19 07/06/19 07/06/19 22:59 06:59 14:59 Intake Total 0 Balance 0 Intake: Oral 0 Other: Weight 122.47 kg Results - Lab Results Most recent lab results Calcium 8.3 mg/dL (8.4-10.2) L 07/06/19 04:20 07/06/19 04:20 07/06/19 04:20 Assessment and Plan Plan: assessment: 1. End-stage renal disease maintained on hemodialysis on Sunday schedule. 2. Hyperkalemia secondary to chronic kidney disease and missed hemodialysis treatment on Sunday. 3. Volume overload with large left-sided pleural effusion. 4. Status post left-sided thoracentesis last week with 1.2 L drained. 5. Hypertension with chronic kidney disease. Controlled. 6. Insulin-dependent diabetes mellitus. 7. Chronic kidney disease mineral bone disease. Plan: Currently seen while undergoing hemodialysis. Next treatment tomorrow. Strongly advise compliance with hemodialysis treatments. Potential repeat thoracentesis this admission. Home medications to be resumed. Thank you for the consultation. I will continue to follow the patient with you during his hospital stay.
[2019-07-06 11:40] LABS: Glucose,Whole Blood 98 mg/dL (75-99)
--- NOTE | 2019-07-06 15:10 | P.CNPUL ---
History of Present Illness Consult date: 07/06/19 Requesting physician: Germain Dowd Reason for consult: dyspnea, abnormal CXR/CT Chief complaint: Shortness of breath History of present illness: This is a 69-year-old gentleman who follows with Dr. Rosen and has a history of of end-stage renal disease on hemodialysis on Sunday basis, paroxysmal atrial fibrillation, chronic congestive heart failure with systolic dysfunction, diabetes mellitus, hypertension, rheumatoid arthritis, seizure disorder, chronic wounds involving bilateral lower extremities, cellulitis, patient goes to the wound care clinic, anxiety, and former smoker. He presented to the emergency room this morning with a history of shortness of breath. He d id miss a dialysis treatment 2 days ago due to not feeling well. He does have a history of a recurrent pleural effusion and had a recent thoracentesis done on 07/01/2019 with 1.2 liters of straw-colored fluid reviewed. Negative for malignancy. Chest x-ray reveals a large left pleural effusion and left lower lobe pulmonary consolidation. We are consulted for the same. He is seen today in consultation on the selective care unit. He is currently sitting up in a recliner at the bedside. Receiving hemodialysis now. White count 7.3. Hemoglobin 10.4. Potassium 6.8. Creatinine 13.9. ProBNP 56,100. Review of Systems All systems: negative except for pulmonary with complaints of increasing shortness of breath Constitutional: Denies chills, Denies fever Eyes: denies blurred vision, denies pain Ears, nose, mouth and throat: Denies headache, Denies sore throat Cardiovascular: Reports decreased exercise tolerance, Reports dyspnea on exe rtion, Reports edema, Reports leg edema, Reports orthopnea, Reports shortness of breath, Denies chest pain Respiratory: Reports dyspnea, Reports home oxygen, Denies cough Gastrointestinal: Denies abdominal pain, Denies diarrhea, Denies nausea, Denies vomiting Musculoskeletal: Denies myalgias Musculoskeletal: bilateral: ankle swelling Integumentary: Reports foot/leg ulcers, Reports wounds, Denies pruritus, Denies rash Neurological: Denies numbness, Denies weakness Psychiatric: Denies anxiety, Denies depression Endocrine: Reports weight change, Denies fatigue Past Medical History Past Medical History: Atrial Fibrillation, Asthma, Heart Failure, Diabetes Mellitus, Dialysis, Eye Disorder, GERD/Reflux, Hypertension, Osteoarthritis (OA), Pneumonia, Renal Disease, Rheumatoid Arthritis (RA), Seizure Disorder Additional Past Medical History / Comment(s): ESRD with hemodialysis, mineral bone disease, chronic anemia, IDDM type II, diabetic retinopathy-"legally blind", chronic neuropathy occasionally in toes bilateral feet and left leg, bilateral lower leg edema, cellulitis bilateral lower legs, past leg/foot wounds and currently has left medial leg wounds that have scabbed over and no longer goes to [facility], paroxysmal Afib, 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 History of Any Multi-Drug Resistant Organisms: None Reported Past Surgical History: Hernia Repair, Orthopedic Surgery Additional Past Surgical History / Comment(s): Bilateral cataract surgery, insertion dialysis catheter left arm then had a procedure done to dialysis catheter at [facility]-cannot recall exactly what was done, PICC line insertion/removed, bilateral inguinal hernina repairs, colonoscopy/polypectomy, R shoulder rotator cuff repair, debridements bilateral feet. Past Anesthesia/Blood Transfusion Reactions: No Reported Reaction Additional Past Anesthesia/Blood Transfusion Reaction / Comment(s): Pt received blood in past without reaction. Smoking Status: Former smoker - Past Family History Mother Family Medical History: Diabetes Mellitus Father Family Medical History: Cancer Additional Family Medical History / Comment(s): Metastatic cancer. Pt cannot recall primary. Medications and Allergies Home Medications Medication Instructions Recorded Confirmed Type Etanercept [Enbrel] 50 mg SQ LUU 06/12/14 07/06/19 History NIFEdipine [NIFEdipine ER] 60 mg PO DAILY 06/12/14 07/06/19 History Aspirin EC [Ecotrin Low Dose] 81 mg PO DAILY 07/31/18 07/06/19 History Gemfibrozil [Lopid] 600 mg PO BID 07/31/18 07/06/19 History Budesonide-Formot 160-4.5 Mcg 2 puff INHALATION RT-BID 02/26/19 07/06/19 History [Symbicort 160-4.5 Mcg Inhaler] Calcium Acetate [PhosLo] 1,334 mg PO TID-W/MEALS 02/26/19 07/06/19 History Magnebind 250/300mg 1 tab PO BID-W/MEALS 02/26/19 07/06/19 History Metoprolol Tartrate [Lopressor] 50 mg PO BID 02/26/19 07/06/19 History Omeprazole 40 mg PO DAILY 02/26/19 07/06/19 History Prorenal + D 1 tab PO DAILY 02/26/19 07/06/19 History Albuterol Nebulized [Ventolin 2.5 mg INHALATION RT-QID 03/17/19 07/06/19 History Nebulized] Famotidine [Pepcid] 20 mg PO BID #30 tablet 03/20/19 07/06/19 Rx Furosemide [Lasix] 80 mg PO BID@0900,1600 tab 03/20/19 07/06/19 Rx ALPRAZolam [Xanax] 0.25 mg PO TID PRN 3 Days #9 tab 05/17/19 07/06/19 Rx Insulin Glargine,Hum.rec.anlog 35 unit SQ HS 06/16/19 07/06/19 History [Lantus Solostar] Insulin Lispro [humaLOG Kwikpen] See Protocol SQ ACHS 06/16/19 07/06/19 History Acetaminophen Tab [Tylenol] 500 mg PO Q6HR PRN tab 06/19/19 07/06/19 Rx levOCARNitine [Levocarnitine] 330 mg PO TID 06/27/19 07/06/19 History levOCARNitine [Levocarnitine] 330 mg PO TID-W/MEALS 07/06/19 07/06/19 History Allergies Allergy/AdvReac Type Severity Reaction Status Date / Time sulfamethoxazole AdvReac Unknown Nausea & Verified 07/06/19 09:58 [From Bactrim] Vomiting trimethoprim [From Bactrim] AdvReac Unknown Nausea & Verified 07/06/19 09:58 Vomiting Physical Exam Vitals: Vital Signs Temp Pulse Pulse Resp BP BP Pulse Ox 07/06/19 14:50 97.7 F 70 18 117/78 07/06/19 08:30 77 128/74 07/06/19 06:25 74 16 109/73 97 07/06/19 04:03 97.7 F 72 20 124/74 99 Intake and Output 07/05/19 07/06/19 07/06/19 22:59 06:59 14:59 Intake Total 240 Output Total 2700 Balance -2460 Intake: Oral 240 Output: Hemodialysis 2700 Other: Weight 122.47 kg 122.47 kg GENERAL EXAM: Alert, pleasant, 69-year-old male patient on 2 L of oxygen the pulse ox of 99% comfortable in no apparent distress. HEAD: Normocephalic/atraumatic. EYES: Normal reaction of pupils, equal size. Conjunctiva pink, sclera white. NOSE: Clear with pink turbinates. THROAT: No erythema or exudates. NECK: No masses, no JVD, no thyroid enlargement, no adenopathy. CHEST: No chest wall deformity. Symmetrical expansion. LUNGS: Diminished breath sounds over left mid and lower lobe, with dullness to percussion, right basilar crackles CVS: Regular rate and rhythm, normal S1 and S2, no gallops, no murmurs, no rubs ABDOMEN: Soft, nontender. No hepatosplenomegaly, normal bowel sounds, no guarding or rigidity. EXTREMITIES: No clubbing, 2+ lower extremity edema, with chronic open wounds , Lg wraps in place MUSCULOSKELETAL: Muscle strength and tone normal. SPINE: No scoliosis or deformity SKIN: Chronic open wounds CENTRAL NERVOUS SYSTEM: No focal deficits, tone is normal in all 4 extremities. PSYCHIATRIC: Alert and oriented -3. Appropriate affect. Intact judgment and insight. Results - Laboratory Findings CBC and BMP: 07/06/19 04:20 07/06/19 04:20 PT/INR, D-dimer PT 11.5 sec (9.0-12.0) 07/06/19 04:20 INR 1.1 (<1.2) 07/06/19 04:20 Abnormal lab findings: Abnormal Labs 07/06/19 07/06/19 04:20 04:20 RBC 3.30 L Hgb 10.4 L Hct 34.3 L MCV 104.1 H MCHC 30.4 L RDW 16.7 H Lymphocytes # 0.5 L Potassium 6.8 H* Carbon Dioxide 15 L BUN 134 H* Creatinine 13.92 H* Glucose 218 H Calcium 8.3 L - Diagnostic Findings Chest x-ray: image reviewed (Recurrent large left pleural effusion) Assessment and Plan Assessment: #1. Dyspnea related to acute exacerbation of chronic congestive heart failure with systolic dysfunction, him a fluid volume overload secondary to missed dialysis #2. Chronic recurrent left pleural effusion, most recent thoracentesis with 1.2 L removed by IR on 07/01/2019 #3. Orthopnea, worsening dyspnea, and lower extremity edema related to the above #4. End-stage renal disease on hemodialysis on Sunday frank ash, patient was dialyzed on 06/17/2019 milligrams removal of 3-1/2 L of fluid, and is having another repeat hemodialysis treatment today #5. Paroxysmal atrial fibrillation, currently in A. fib, was previously on Eliquis #6. Diabetes mellitus type 2 with diabetic neuropathy and diabetic retinopathy #7. 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 Chronic obstructive pulmonary disease on home oxygen #9. History of chronic tobacco dependence, currently in remission #10. Rheumatoid arthritis #11. History of seizure disorder #12. Chronic bilateral lower extremity wounds, patient follows at the wound care clinic #13. Chronic venous insufficiency and peripheral arterial disease, with previous right foot cultures positive for pseudomonas aeruginosa, and stap hylococcus species in the left leg Plan: The patient was seen and evaluated by Dr. Bustos Chest x-ray and labs reviewed Recent left-sided thoracentesis on 07/01/2019 with 1.2 L removed, negative for malignancy Recurrent left-sided plural effusion Currently receiving hemodialysis Will await to see if any improvement prior to deciding on a repeat thoracentesis Repeat chest x-ray in a.m. Currently on 2 L nasal cannula We'll continue to follow make further recommendations based on his clinical s facundo I, the cosigning physician, performed a history & physical examination of the patient. Lungs sounds diminished in the mid to lower left lung, few crackles in the right. Maintaining good O2 saturations in the 90s on 2 L/m per nasal cannula. I discussed the assessment and plan of care with my nurse practitioner, Steffany Steele. I attest to the above consultation as dictated by her. Time with Patient: Greater than 30
[2019-07-06 17:04] LABS: Glucose,Whole Blood 149 mg/dL (75-99)
[2019-07-06] MEDS ORDERED: ALPRAZolam 0.25 MG TAB PO PRN (17:11)
--- NOTE | 2019-07-06 17:19 | P.HPIM ---
History of Present Illness H&P Date: 07/06/19 Chief Complaint: Shortness of breath 69-year-old gentleman who follows with Dr. Rosen and has a history of of end-stage renal disease on hemodialysis on Sunday basis, paroxysmal atrial fibrillation, chronic congestive heart failure with systolic dysfunction, diabetes mellitus, hypertension, rheumatoid arthritis, seizure disorder, chronic wounds involving bilateral lower extremities, cellulitis, patient goes to the wound care clinic, anxiety, and former smoker. He presented to the emergency room this morning with a history of shortness of breath. He did miss a dialysis treatment 2 days ago due to not feeling well. He does have a history of a recurrent pleural effusion and had a recent thoracentesis done on 07/01/2019 with 1.2 liters of straw-colored fluid reviewed. Negative for malignancy. Chest x-ray reveals a large left pleural effusion and left lower lobe pulmonary consolidation. We are consulted for the same. He is seen today in consultation on the selective care unit. He is currently sitting up in a recliner at the bedside. Receiving hemodialysis now. White count 7.3. Hemoglobin 10.4. Potassium 6.8. Creatinine 13.9. ProBNP 56,100. Review of Systems REVIEW OF SYSTEMS: CONSTITUTIONAL: No fever, no malaise, no fatigue. HEENT: No recent visual problems or hearing problems. Denied any sore throat. CARDIOVASCULAR: No chest pain, orthopnea, PND, no palpitations, no syncope. PULMONARY: No shortness of breath, no cough, no hemoptysis. GASTROINTESTINAL: No diarrhea, no nausea, no vomiting, no abdominal pain. NEUROLOGICAL: No headaches, no weakness, no numbness. HEMATOLOGICAL: Denies any bleeding or petechiae. GENITOURINARY: Denies any burning micturition, frequency, or urgency. MUSCULOSKELETAL/RHEUMATOLOGICAL: Denies any joint pain, swelling, or any muscle pain. ENDOCRINE: Denies any polyuria or polydipsia. The rest of the 14-point review of systems is negative. Past Medical History Past Medical History: Atrial Fibrillation, Asthma, Heart Failure, Diabetes Mellitus, Dialysis, Eye Disorder, GERD/Reflux, Hypertension, Osteoarthritis (OA), Pneumonia, Renal Disease, Rheumatoid Arthritis (RA), Seizure Disorder Additional Past Medical History / Comment(s): ESRD with hemodialysis, mineral bone disease, chronic anemia, IDDM type II, diabetic retinopathy-"legally blind", chronic neuropathy occasionally in toes bilateral feet and left leg, bilateral lower leg edema, cellulitis bilateral lower legs, past leg/foot wounds and currently has left medial leg wounds that have scabbed over and no longer goes to [facility], paroxysmal Afib, 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 History of Any Multi-Drug Resistant Organisms: None Reported Past Surgical History: Hernia Repair, Orthopedic Surgery Additional Past Surgical History / Comment(s): Bilateral cataract surgery, in sertion dialysis catheter left arm then had a procedure done to dialysis catheter at [facility]-cannot recall exactly what was done, PICC line insertion/removed, bilateral inguinal hernina repairs, colonoscopy/polypectomy, R shoulder rotator cuff repair, debridements bilateral feet. Past Anesthesia/Blood Transfusion Reactions: No Reported Reaction Additional Past Anesthesia/Blood Transfusion Reaction / Comment(s): Pt received blood in past without reaction. Smoking Status: Former smoker - Past Family History Mother Family Medical History: Diabetes Mellitus Father Family Medical History: Cancer Additional Family Medical History / Comment(s): Metastatic cancer. Pt cannot recall primary. Medications and Allergies Home Medications Medication Instructions Recorded Confirmed Type Etanercept [Enbrel] 50 mg SQ LUU 06/12/14 07/06/19 History NIFEdipine [NIFEdipine ER] 60 mg PO DAILY 06/12/14 07/06/19 History Aspirin EC [Ecotrin Low Dose] 81 mg PO DAILY 07/31/18 07/06/19 History Gemfibrozil [Lopid] 600 mg PO BID 07/31/18 07/06/19 History Budesonide-Formot 160-4.5 Mcg 2 puff INHALATION RT-BID 02/26/19 07/06/19 History [Symbicort 160-4.5 Mcg Inhaler] Calcium Acetate [PhosLo] 1,334 mg PO TID-W/MEALS 02/26/19 07/06/19 History Magnebind 250/300mg 1 tab PO BID-W/MEALS 02/26/19 07/06/19 History Metoprolol Tartrate [Lopressor] 50 mg PO BID 02/26/19 07/06/19 History Omeprazole 40 mg PO DAILY 02/26/19 07/06/19 History Prorenal + D 1 tab PO DAILY 02/26/19 07/06/19 History Albuterol Nebulized [Ventolin 2.5 mg INHALATION RT-QID 03/17/19 07/06/19 History Nebulized] Famotidine [Pepcid] 20 mg PO BID #30 tablet 03/20/19 07/06/19 Rx Furosemide [Lasix] 80 mg PO BID@0900,1600 tab 03/20/19 07/06/19 Rx ALPRAZolam [Xanax] 0.25 mg PO TID PRN 3 Days #9 tab 05/17/19 07/06/19 Rx Insulin Glargine,Hum.rec.anlog 35 unit SQ HS 06/16/19 07/06/19 History [Lantus Solostar] Insulin Lispro [humaLOG Kwikpen] See Protocol SQ ACHS 06/16/19 07/06/19 History Acetaminophen Tab [Tylenol] 500 mg PO Q6HR PRN tab 06/19/19 07/06/19 Rx levOCARNitine [Levocarnitine] 330 mg PO TID 06/27/19 07/06/19 History levOCARNitine [Levocarnitine] 330 mg PO TID-W/MEALS 07/06/19 07/06/19 History Allergies Allergy/AdvReac Type Severity Reaction Status Date / Time sulfamethoxazole AdvReac Unknown Nausea & Verified 07/06/19 09:58 [From Bactrim] Vomiting trimethoprim [From Bactrim] AdvReac Unknown Nausea & Verified 07/06/19 09:58 Vomiting Physical Exam Vitals: Vital Signs Temp Pulse Pulse Resp BP BP Pulse Ox 07/06/19 16:10 97.6 F 71 17 132/62 95 07/06/19 14:50 97.7 F 70 18 117/78 07/06/19 08:30 77 128/74 07/06/19 06:25 74 16 109/73 97 07/06/19 04:03 97.7 F 72 20 124/74 99 Intake and Output 07/06/19 07/06/19 07/06/19 06:59 14:59 22:59 Intake Total 240 Output Total 2700 Balance -2460 Intake: Oral 240 Output: Hemodialysis 2700 Other: # Voids 1 # Bowel Movements 1 Weight 122.47 kg 122.47 kg - Constitutional General appearance: Present: average body habitus, cooperative, no acute distress - EENT Eyes: Present: anicteric sclerae, EOMI, PERRLA, normal appearance ENT: Present: hearing grossly normal, normal oropharynx Ears: bilateral: normal - Neck Neck: Present: normal ROM. Absent: lymphadenopathy, rigidity, thyromegaly Carotids: negative: bruit present Thyroid: bilateral: normal size, negative: enlarged, nodule - Respiratory Respiratory: bilateral: CTA, negative: rales, rhonchi, wheezing - Cardiovascular Rhythm: regular Heart sounds: normal: S1, S2 Abnormal Heart Sounds: Absent: systolic murmur, diastolic murmur - Gastrointestinal General gastrointestinal: Present: normal bowel sounds, soft. Absent: distended, organomegaly, tenderness - Genitourinary Genitourinary Comment(s): deferred - Integumentary Integumentary: Present: normal turgor. Absent: jaundiced, rash, ulcer - Neurologic Neurologic: Present: CNII-XII intact. Absent: focal deficits - Musculoskeletal Musculoskeletal: Present: gait normal, strength equal bilaterally - Psychiatric Psychiatric: Present: A&O x's 3, appropriate affect, intact judgment & insight Results CBC & Chem 7: 07/06/19 04:20 07/06/19 04:20 Labs: Abnormal Lab Results - Last 24 Hours (Table) 07/06/19 07/06/19 07/06/19 Range/Units 04:20 04:20 17:03 RBC 3.30 L (4.30-5.90) m/uL Hgb 10.4 L (13.0-17.5) gm/dL Hct 34.3 L (39.0-53.0) % MCV 104.1 H (80.0-100.0) fL MCHC 30.4 L (31.0-37.0) g/dL RDW 16.7 H (11.5-15.5) % Lymphocytes # 0.5 L (1.0-4.8) k/uL Potassium 6.8 H* (3.5-5.1) mmol/L Carbon Dioxide 15 L (22-30) mmol/L BUN 134 H* (9-20) mg/dL Creatinine 13.92 H* (0.66-1.25) mg/dL Glucose 218 H (74-99) mg/dL POC Glucose (mg/dL) 149 H (75-99) mg/dL Calcium 8.3 L (8.4-10.2) mg/dL Thrombosis Risk Factor Assmnt - Choose All That Apply Any of the Below Risk Factors Present?: Yes Each Factor Represents 1 point: Abnormal pulmonary function (COPD), Swollen legs (current) Other Risk Factors: Yes Each Risk Factor Represents 2 Points: Age 61-74 years Thrombosis Risk Factor Assessment Total Risk Factor Score: 4 Thrombosis Risk Factor Assessment Level: Moderate Risk Assessment and Plan Assessment: 1. Dyspnea related to acute exacerbation of chronic congestive heart failure with systolic dysfunction - Patient is in fluid overload due to missed hemodialysis; patient did receive a session of hemodialysis this morning with a plan to start with regular dialysis schedule from tomorrow 2. Chronic recurrent left pleural effusion; - most recent thoracentesis with 1.2 L removed by IR on 07/01/2019 which was negative for malignancy; pulmonary is consulted and planning to observe patient on hemodialysis and repeat chest x-ray tomorrow morning with a plan to repeat thoracentesis if chest x-ray does not improve 3. Orthopnea, worsening dyspnea, and lower extremity edema related to the above ; patient remains on O2 2 L per nasal cannula with SpO2 of 93-94% 4. End-stage renal disease/ HD; dialysis days- Sunday schedule; patient was dialyzed on 06/17/2019 milligrams removal of 3-1/2 L of fluid, and is having another repeat hemodialysis treatment today; patient will start his regular MWF scheduled from tomorrow morning 5. Paroxysmal atrial fibrillation; currently in A. fib, was previously on Eliquis 6. Diabetes mellitus type 2 with diabetic neuropathy and diabetic retinopathy; we will restart home dose of Lantus 25 units subcu daily at bedtime and monitor Accu-Cheks every before meals and at bedtime with insulin sliding scale 7. Chronic obstructive pulmonary disease on home oxygen; Symbicort inhaler 2 puffs twice a day along with albuterol nebulizer treatments 4 times a day 8. Rheumatoid arthritis; continue with home dose of Enbrel 9. History of seizure disorder; levocarnitine 3:30 milligrams by mouth 3 times a day 10. Chronic bilateral lower extremity wounds, patient follows at the wound care clinic; consult wound care DVT prophylaxis; SCDs CODE STATUS; full code Time with Patient: Greater than 30
[2019-07-06] MEDS ORDERED: NON FORMULARY DRUG (Levocarnitine [Levocarnitine] 330 MG) PO SCH (17:30)
[2019-07-06] MEDS: CALCIUM ACETATE 667 MG TAB PO SCH (17:42)
[2019-07-06] MEDS: INSULIN ASPART (NovoLOG) 100 UNIT/ML VIAL SQ SCH ×2 (17:44→21:00)
[2019-07-06] MEDS: CALCIUM CARB-MAG CARB-FOLIC 1 EACH TAB PO SCH (18:06)
[2019-07-06] MEDS ORDERED: ALBUTEROL NEBULIZED 2.5 MG/3 ML INHALATION SCH (20:00)
[2019-07-06 20:33] LABS: Glucose,Whole Blood 198 mg/dL (75-99)
[2019-07-06] MEDS: levOCARNitine (WITH SUGAR) 100 MG/ML BOTTLE PO SCH (20:59)
[2019-07-06] MEDS: FAMOTIDINE 20 MG TAB PO SCH (21:00)
[2019-07-06] MEDS: METOPROLOL TARTRATE 50 MG TAB PO SCH (21:00)
[2019-07-06] MEDS: INSULIN DETEMIR (LEVEMIR) 100 UNIT/ML SYR SQ SCH (21:00)
[2019-07-06] MEDS ORDERED: ALBUTEROL HFA INHALER INHALATION SCH (21:13)
[2019-07-06] MEDS: SYMBICORT 160-4.5 MCG INHALER INHALATION SCH (21:36)
[2019-07-07] MEDS: ACETAMINOPHEN TAB 325 MG TAB PO PRN (04:51)
[2019-07-07] MEDS: SODIUM CHLORIDE 0.9% 1,000 ML IV SCH (05:54)
[2019-07-07 06:10] LABS: Glucose,Whole Blood 167 mg/dL (75-99)
[2019-07-07] MEDS: CALCIUM ACETATE 667 MG TAB PO SCH ×3 (06:31→17:08)
[2019-07-07] MEDS: INSULIN ASPART (NovoLOG) 100 UNIT/ML VIAL SQ SCH ×4 (06:31→22:15)
[2019-07-07] MEDS: CALCIUM CARB-MAG CARB-FOLIC 1 EACH TAB PO SCH ×2 (06:31→17:08)
[2019-07-07] MEDS: PANTOPRAZOLE 40 MG TABLET PO SCH (06:31)
[2019-07-07 07:30] LABS: Calcium 8.5 mg/dL (8.4-10.2); Potassium 5.7 mmol/L (3.5-5.1)
[2019-07-07] MEDS: FUROSEMIDE 80 MG TAB PO SCH ×2 (08:27→17:08)
[2019-07-07] MEDS: ASPIRIN 81 MG PO SCH (08:27)
[2019-07-07] MEDS: FAMOTIDINE 20 MG TAB PO SCH (08:27)
[2019-07-07] MEDS: FENOFIBRATE 160 MG TAB PO SCH (08:27)
[2019-07-07] MEDS: levOCARNitine (WITH SUGAR) 100 MG/ML BOTTLE PO SCH ×3 (08:28→20:14)
[2019-07-07] MEDS: FOLIC ACID-VIT B COMPLEX-VIT C 1 CAP PO SCH (08:28)
[2019-07-07] MEDS: METOPROLOL TARTRATE 50 MG TAB PO SCH ×2 (08:31→20:14)
[2019-07-07] MEDS: ALBUTEROL HFA INHALER INHALATION SCH ×4 (09:40→20:01)
[2019-07-07] MEDS: SYMBICORT 160-4.5 MCG INHALER INHALATION SCH ×2 (09:41→20:01)
[2019-07-07 11:25] LABS: Glucose,Whole Blood 138 mg/dL (75-99)
--- NOTE | 2019-07-07 12:19 | P.PN ---
Subjective Progress Note Date: 07/07/19 Principal diagnosis: This is a 69-year-old gentleman who follows with Dr. Rosen and has a history of of end-stage renal disease on hemodialysis on Sunday basis, paroxysmal atrial fibrillation, chronic congestive heart failure with systolic dysfunction, diabetes mellitus, hypertension, rheumatoid arthritis, seizure disorder, chronic wounds involving bilateral lower extremities, cellulitis, patient goes to the wound care clinic, anxiety, and former smoker. He presented to the emergency room this morning with a history of shortness of breath. He did miss a dialysis treatment 2 days ago due to not feeling well. He does have a history of a recurrent pleural effusion and had a recent thoracentesis done on 07/01/2019 with 1.2 liters of straw-colored fluid reviewed. Negative for malignancy. Chest x-ray reveals a large left pleural effusion and left lower lobe pulmonary consolidation. We are consulted for the same. He is seen today in consultation on the selective care unit. He is currently sitting up in a recliner at the bedside. Receiving hemodialysis now. White count 7.3. Hemoglobin 10.4. Potassium 6.8. Creatinine 13.9. ProBNP 56,100. The patient was seen in follow-up 07/07/[address] Reeder. He is currently sitting up in bed in no acute distress. Denies any pain or shortness of breath. Chest x-ray was reviewed this morning, left pleural effusion present which is chronic. He received dialysis yesterday with 2 L taken off. He is to receive dialysis again today. His oxygen saturations are 92-93% on room air. Objective - Vital Signs Vital signs: Vital Signs Temp 97.8 F 07/07/19 08:34 Pulse 71 07/07/19 08:34 Resp 18 07/07/19 08:34 BP 139/82 07/07/19 08:34 Pulse Ox 92 L 07/07/19 08:34 Intake & Output 07/06/19 07/07/19 07/07/19 18:59 06:59 18:59 Intake Total 240 540 240 Output Total 2700 50 100 Balance -2460 490 140 Weight 122.47 kg 122.47 kg Intake: Oral 240 540 240 Output: Urine 50 100 Hemodialysis 2700 Other: # Voids 1 1 1 # Bowel Movements 1 - Constitutional Constitutional Comment(s): Appears comfortable General appearance: Present: cooperative - Respiratory Details: Lungs sounds diminished in the left base, right basilar crackles present. Resp irations even, nonlabored. Currently on room air with oxygen saturation 92-93%. - Cardiovascular Details: S1, S2 present. Irregular rate and rhythm, controlled atrial fibrillation on telemetry. Palpable peripheral pulses bilaterally. Bilateral 2+ lower ex tremity edema present. - Gastrointestinal Gastrointestinal Comment(s): Abdomen soft, nontender, nondistended. No organomegaly present. Active bowel sounds present 4 quadrants. Tolerating diet. - Genitourinary Genitourinary Comment(s): Continues to void - Integumentary Integumentary Comment(s): Chronic wounds present bilateral lower extremities, Lg wraps in place - Neurologic Neurologic: Present: CNII-XII intact - Musculoskeletal Musculoskeletal: Present: strength equal bilaterally - Psychiatric Psychiatric: Present: A&O x's 3, appropriate affect, intact judgment & insight - Allied health notes Allied health notes reviewed: nursing - Labs CBC & Chem 7: 07/06/19 04:20 07/07/19 06:35 Labs: Abnormal Lab Results - Last 24 Hours (Table) 07/06/19 07/06/19 07/07/19 Range/Units 17:03 20:31 06:09 Potassium (3.5-5.1) mmol/L Carbon Dioxide (22-30) mmol/L BUN (9-20) mg/dL Creatinine (0.66-1.25) mg/dL Glucose (74-99) mg/dL POC Glucose (mg/dL) 149 H 198 H 167 H (75-99) mg/dL 07/07/19 07/07/19 Range/Units 06:35 11:23 Potassium 5.7 H (3.5-5.1) mmol/L Carbon Dioxide 17 L (22-30) mmol/L BUN 124 H* (9-20) mg/dL Creatinine 13.06 H* (0.66-1.25) mg/dL Glucose 162 H (74-99) mg/dL POC Glucose (mg/dL) 138 H (75-99) mg/dL Assessment and Plan Assessment: #1. Dyspnea related to acute exacerbation of chronic congestive heart failure with systolic dysfunction, fluid volume overload secondary to missed dialysis #2. Chronic recurrent left pleural effusion, most recent thoracentesis with 1.2 L removed by IR on 07/01/2019 #3. Orthopnea, worsening dyspnea, and lower extremity edema related to the above #4. End-stage renal disease on hemodialysis on Sunday schedule, patient was dialyzed on 07/06/2019 milligrams removal of 2 L of fluid, and is having another repeat hemodialysis treatment today #5. Paroxysmal atrial fibrillation, currently in A. fib, was previously on Eliquis #6. Diabetes mellitus type 2 with diabetic neuropathy and diabetic retinopathy #7. 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 Chronic obstructive pulmonary disease on home oxygen #9. History of chronic tobacco dependence, currently in remission #10. Rheumatoid arthritis #11. History of seizure disorder #12. Chronic bilateral lower extremity wounds, patient follows at the wound care clinic #13. Chronic venous insufficiency and peripheral arterial disease, with previou s right foot cultures positive for pseudomonas aeruginosa, and staphylococcus species in the left leg Plan: The patient was seen and evaluated by Dr. Reeder Chest x-ray and labs reviewed Recent left-sided thoracentesis on 07/01/2019 with 1.2 L removed, negative for malignancy Recurrent left-sided plural effusion Currently receiving hemodialysis Repeat chest x-ray in a.m. Currently on room air Will obtain ultrasound of the chest today after dialysis, possibly may perform thoracentesis depending on what the ultrasound shows We'll continue to follow make further recommendations based on his clinical status Time with Patient: Greater than 30
--- NOTE | 2019-07-07 13:33 | P.CONS ---
History of Present Illness - Reason for Consult Consult date: 07/07/19 Wound care - History of Present Illness Is a 67-year-old gentleman who is known to the wound care center with past medical history of atrial for evaluation, heart failure, diabetes insulin- dependent, end-stage kidney disease with dialysis on Sunday, acid reflux, hypertension, rheumatoid arthritis, diabetic retinopathy. He has significant diabetic neuropathy. Patient is being seen on [facility] for nonhealing ulcerations to bilateral lower extremities bilateral feet and coccyx. Patient has multiple ulcerations to bilateral lower extremities and bilateral feet. Patient also has ulceration to the coccyx which is new for him. Patient is noncompliant. Review of Systems Review Of Systems: Constitutional: No fever, no chills, no night sweats. No weight change. No weakness, fatigue or lethargy. No daytime sleepiness. Integumentary:reports wounds, no lesions. No rash or pruritus. No unusual bruising. No change in hair or nails. Past Medical History Past Medical History: Atrial Fibrillation, Asthma, Heart Failure, Diabetes Mellitus, Dialysis, Eye Disorder, GERD/Reflux, Hypertension, Osteoarthritis (OA), Pneumonia, Renal Disease, Rheumatoid Arthritis (RA), Seizure Disorder Additional Past Medical History / Comment(s): ESRD with hemodialysis, mineral bone disease, chronic anemia, IDDM type II, diabetic retinopathy-"legally blind", chronic neuropathy occasionally in toes bilateral feet and left leg, bilateral lower leg edema, cellulitis bilateral lower legs, past leg/foot wounds and currently has left medial leg wounds that have scabbed over and no longer goes to [facility], paroxysmal Afib, 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 History of Any Multi-Drug Resistant Organisms: None Reported Past Surgical History: Hernia Repair, Orthopedic Surgery Additional Past Surgical History / Comment(s): Bilateral cataract surgery, insertion dialysis catheter left arm then had a procedure done to dialysis catheter at [facility]-cannot recall exactly what was done, PICC line insertion/removed, bilateral inguinal hernina repairs, colonoscopy/polypectomy, R shoulder rotator cuff repair, debridements bilateral feet. Past Anesthesia/Blood Transfusion Reactions: No Reported Reaction Additional Past Anesthesia/Blood Transfusion Reaction / Comm: Pt received blood in past without reaction. Smoking Status: Former smoker - Past Family History Mother Family Medical History: Diabetes Mellitus Father Family Medical History: Cancer Additional Family Medical History / Comment(s): Metastatic cancer. Pt cannot recall primary. Medications and Allergies Home Medications Medication Instructions Recorded Confirmed Type Etanercept [Enbrel] 50 mg SQ LUU 06/12/14 07/06/19 History NIFEdipine [NIFEdipine ER] 60 mg PO DAILY 06/12/14 07/06/19 History Aspirin EC [Ecotrin Low Dose] 81 mg PO DAILY 07/31/18 07/06/19 History Gemfibrozil [Lopid] 600 mg PO BID 07/31/18 07/06/19 History Budesonide-Formot 160-4.5 Mcg 2 puff INHALATION RT-BID 02/26/19 07/06/19 History [Symbicort 160-4.5 Mcg Inhaler] Calcium Acetate [PhosLo] 1,334 mg PO TID-W/MEALS 02/26/19 07/06/19 History Magnebind 250/300mg 1 tab PO BID-W/MEALS 02/26/19 07/06/19 History Metoprolol Tartrate [Lopressor] 50 mg PO BID 02/26/19 07/06/19 History Omeprazole 40 mg PO DAILY 02/26/19 07/06/19 History Prorenal + D 1 tab PO DAILY 02/26/19 07/06/19 History Albuterol Nebulized [Ventolin 2.5 mg INHALATION RT-QID 03/17/19 07/06/19 History Nebulized] Famotidine [Pepcid] 20 mg PO BID #30 tablet 03/20/19 07/06/19 Rx Furosemide [Lasix] 80 mg PO BID@0900,1600 tab 03/20/19 07/06/19 Rx ALPRAZolam [Xanax] 0.25 mg PO TID PRN 3 Days #9 tab 05/17/19 07/06/19 Rx Insulin Glargine,Hum.rec.anlog 35 unit SQ HS 06/16/19 07/06/19 History [Lantus Solostar] Insulin Lispro [humaLOG Kwikpen] See Protocol SQ ACHS 06/16/19 07/06/19 History Acetaminophen Tab [Tylenol] 500 mg PO Q6HR PRN tab 06/19/19 07/06/19 Rx levOCARNitine [Levocarnitine] 330 mg PO TID 06/27/19 07/06/19 History Allergies Allergy/AdvReac Type Severity Reaction Status Date / Time sulfamethoxazole AdvReac Unknown Nausea & Verified 07/06/19 09:58 [From Bactrim] Vomiting trimethoprim [From Bactrim] AdvReac Unknown Nausea & Verified 07/06/19 09:58 Vomiting Physical Exam Vitals: Vital Signs Temp Pulse Resp BP Pulse Ox 07/07/19 12:18 97.7 F 65 16 128/67 96 07/07/19 08:34 97.8 F 71 16 139/82 92 L 07/07/19 03:12 97.5 F L 72 18 134/61 92 L 07/07/19 00:00 97.8 F 84 20 128/70 96 07/06/19 20:00 97.5 F L 74 18 130/60 97 07/06/19 16:10 97.6 F 71 17 132/62 95 07/06/19 14:50 97.7 F 70 18 117/78 Intake and Output 07/06/19 07/07/19 07/07/19 22:59 06:59 14:59 Intake Total 540 360 Output Total 50 100 Balance 490 260 Intake: Oral 540 360 Output: Urine 50 100 Other: # Voids 1 1 1 # Bowel Movements 1 Weight 122.47 kg Physical exam: General Appearance: Alert, cooperative, no distress, appears stated age. Skin: Left distal lateral leg ulceration measures approximately 2.1 x 4.3 x 0.1 cm it is a full-thickness without exposed support structures. Limited to skin breakdown. No tunneling or undermining., Left distal medial upper leg. Measuring approximately 1.3 x 1.1 x 0.1 cm Limited to skin breakdown with no tunneling or undermining is a full thickness without exposed support structures. Left medial lower leg measuring approximately 3.9 x 0.9 x 0.1 cm this is Limited to skin breakdown. A full-thickness ulceration without exposed support structures, tunneling or undermining. Right medial posterior lower leg aurora suring approximately 2.4 x 1.4 x 0.2 cm, Limited to skin breakdown, no tunneling or undermining, full thickness without exposed structures. Right anterior lower leg, diabetic measuring approximately 4.1 x 2.8 x 0.1 cm Limited to skin breakdown, no tunneling or undermining noted. Right lateral plantar foot, diabetic wound ulcer unable to visualize wound bed, measuring approximately 1.2 x 0.9 x 0.2 Limited to skin breakdown and no tunneling or undermining noted. Left plantar foot measuring approximately 0.9 x 1.2 x 0.1 cm diabetic foot ulcer unable to visualize wound bed Limited to skin breakdown noted tunneling or undermining. Left medial lower leg diabetic ulcer unable to visualize wound bed, measuring 2.9 x 1.2 x 0.1 cm no tunneling or undermining Limited to skin breakdown, left posterior lower leg, measuring 3.5 x 3.2 x 0.1 cm grade 1 diabetic lower extremity ulceration, Limited to skin breakdown, no tunneling or undermining noted, Coccyx ulceration midline, Limited to skin breakdown, pressure stage II no tunneling or undermining noted. all other Skin color, texture, tugor normal, no rashes or lesions. Neurologic: Alert oriented x3 Results CBC & Chem 7: 07/06/19 04:20 07/07/19 06:35 Labs: Abnormal Lab Results - Last 24 Hours (Table) 07/06/19 07/06/19 07/07/19 Range/Units 17:03 20:31 06:09 Potassium (3.5-5.1) mmol/L Carbon Dioxide (22-30) mmol/L BUN (9-20) mg/dL Creatinine (0.66-1.25) mg/dL Glucose (74-99) mg/dL POC Glucose (mg/dL) 149 H 198 H 167 H (75-99) mg/dL 07/07/19 07/07/19 Range/Units 06:35 11:23 Potassium 5.7 H (3.5-5.1) mmol/L Carbon Dioxide 17 L (22-30) mmol/L BUN 124 H* (9-20) mg/dL Creatinine 13.06 H* (0.66-1.25) mg/dL Glucose 162 H (74-99) mg/dL POC Glucose (mg/dL) 138 H (75-99) mg/dL Assessment and Plan (1) Pressure ulcer of coccygeal region, stage 2 Current Visit: Yes Status: Acute Code(s): L89.152 - PRESSURE ULCER OF SACRAL REGION, STAGE 2 SNOMED Code(s): 842460092 (2) Diabetic ulcer of left foot associated with diabetes mellitus due to underlying condition, with fat layer exposed Current Visit: No Status: Acute Code(s): E08.621 - DIABETES MELLITUS DUE TO UNDERLYING CONDITION W FOOT ULCER; L97.522 - NON-PRS CHRONIC ULCER OTH PRT LEFT FOOT W FAT LAYER EXPOSED SNOMED Code(s): 982479110 (3) Diabetic ulcer of right foot Current Visit: No Status: Acute Code(s): E11.621 - TYPE 2 DIABETES MELLITUS WITH FOOT ULCER; L97.519 - NON-PRS CHRONIC ULCER OTH PRT RIGHT FOOT W UNSP SEVERITY SNOMED Code(s): 158249374 (4) Ulcer of right lower extremity with fat layer exposed Current Visit: No Status: Acute Code(s): L97.912 - NON-PRS CHR ULC UNSP PRT OF R LOW LEG W FAT LAYER EXPOSED SNOMED Code(s): 37473185 Plan: Apply triad to the coccyx ulceration. Apply absorptive silver, saline moistened gauze, dry gauze roll gauze to bilateral lower extremities and feet wrap with Lg wrap to control edema. Change Sunday. Instructed patient keep legs elevated as much as possible. Patient verbalized understanding. Please have patient call upon discharge to reschedule his wound care appointment. Thank you kindly for the consultation any questions please contact the wound care center DNP note has been reviewed and discussed with Dr. Messina and the impression and plan of care has been directed as dictated.
[2019-07-07 14:31] VITALS: BMI 33.7
--- NOTE | 2019-07-07 16:34 | US ---
EXAMINATION TYPE: US chest DATE OF EXAM: 07/07/2019 COMPARISON: CLINICAL HISTORY: loreto for thora. TECHNIQUE: Targeted ultrasound of the posterior lower bilateral hemithoraces EXAM MEASUREMENTS: Left Pleural Effusion pocket size: 9.5 cm Left skin surface to fluid distance: 3.1 cm Right side NOT marked for possible thoracentesis outside the dept due to no fluid seen. Left side marked for possible thoracentesis outside the dept. Pulmonologists are able to review the images in the patient?s EMR. IMPRESSIONS: As above
[2019-07-07 16:39] LABS: Glucose,Whole Blood 147 mg/dL (75-99)
[2019-07-07 21:42] LABS: Glucose,Whole Blood 198 mg/dL (75-99)
[2019-07-07] MEDS: INSULIN DETEMIR (LEVEMIR) 100 UNIT/ML SYR SQ SCH (22:15)
--- NOTE | 2019-07-08 01:12 | P.PN ---
Subjective 69-year-old gentleman who follows with Dr. Rosen and has a history of of end-stage renal disease on hemodialysis on Sunday basis, paroxysmal atrial fibrillation, chronic congestive heart failure with systolic dysfunction, diabetes mellitus, hypertension, rheumatoid arthritis, seizure disorder, chronic wounds involving bilateral lower extremities, cellulitis, patient goes to the wound care clinic, anxiety, and former smoker. He presented to the emergency room this morning with a history of shortness of breath. He did miss a dialysis treatment 2 days ago due to not feeling well. He does have a history of a recurrent pleural effusion and had a recent thoracentesis done on 07/01/2019 with 1.2 liters of straw-colored fluid reviewed. Negative for malignancy. Chest x-ray reveals a large left pleural effusion and left lower lobe pulmonary consolidation. We are consulted for the same. He is seen today in consultation on the selective care unit. He is currently sitting up in a recliner at the bedside. Receiving hemodialysis now. White count 7.3. Hemoglobin 10.4. Potassium 6.8. Creatinine 13.9. ProBNP 56,100. 07/07/2019 Patient is sitting at bedside in the chair, is less dyspneic and having his meal. He is denying chest pain. However he still have tachypnea with a breathing rate 16-18, he is saturating 92% on 2 L oxygen via nasal cannula. Labs showing chronically elevated creatinine. Potassium is improved 6.8 down to 5.7 Ultrasound of the chest has been ordered for evaluation of his pleural effusion for possible thoracocentesis VITALS ARE STABLE, and sugar is controlled Wound Care: The patient for bilateral chronic leg ulcers and new coccygeal ulcer CONSTITUTIONAL: No fever, no malaise, no fatigue. HEENT: No recent visual problems or hearing problems. Denied any sore throat. GASTROINTESTINAL: No diarrhea, no nausea, no vomiting, no abdominal pain. Normoactive bowel sounds. NEUROLOGICAL: No headaches, no weakness, no numbness. HEMATOLOGICAL: Denies any bleeding or petechiae. GENITOURINARY: Denies any burning micturition, frequency, or urgency. MUSCULOSKELETAL/RHEUMATOLOGICAL: Denies any joint pain, swelling, or any muscle pain. ENDOCRINE: Denies any polyuria or polydipsia. Active Medications Generic Name Dose Route Start Last Admin Trade Name Freq PRN Reason Stop Dose Admin Acetaminophen 650 mg 07/06/19 06:01 07/07/19 04:51 Tylenol Tab PO 650 mg Q6HR PRN Administration Mild Pain or Fever > 100.5 Albuterol Sulfate 2 puff 07/06/19 21:36 07/07/19 11:48 Ventolin Hfa Inhaler INHALATION 2 puff RT-QID [facility] Administration Alprazolam 0.25 mg 07/06/19 17:11 Xanax PO TID PRN anxiety Aspirin 81 mg 07/07/19 09:00 07/07/19 08:27 Aspirin PO 81 mg DAILY [facility] Administration Budesonide/Formoterol Fumarate 2 puff 07/06/19 20:00 07/07/19 09:41 Symbicort 160-4.5 Mcg Inhaler INHALATION 2 puff RT-BID [facility] Administration Ca Carbonate/Folic Ac/Mg Carbonate 1 each 07/06/19 17:30 07/07/19 06:31 Magnebind 400 PO 1 each BID-W/MEALS [facility] Administration Calcium Acetate 1,334 mg 07/06/19 17:30 07/07/19 12:10 Phoslo PO 1,334 mg TID-W/MEALS [facility] Administration Famotidine 20 mg 07/08/19 09:00 Pepcid PO DAILY [facility] Fenofibrate 160 mg 07/07/19 09:00 07/07/19 08:27 Lofibra PO 160 mg DAILY [facility] Administration Furosemide 80 mg 07/07/19 09:00 07/07/19 08:27 Lasix PO 80 mg BID@0900,1600 [facility] Administration Sodium Chloride 1,000 mls @ 20 mls/hr 07/06/19 06:15 07/07/19 05:54 Saline 0.9% IV Not Given .Q24H [facility] Insulin Aspart 0 unit 07/06/19 17:30 07/07/19 12:10 Novolog SQ 07/13/19 17:31 1 unit ACHS [facility] Administration Protocol Insulin Detemir 35 unit 07/06/19 21:00 07/06/19 21:00 Levemir SQ 35 unit HS [facility] Administration Levocarnitine 330 mg 07/06/19 22:00 07/07/19 08:28 Carnitor Oral Soln PO 330 mg TID [facility] Administration Metoprolol Tartrate 50 mg 07/06/19 21:00 07/07/19 08:31 Lopressor PO 50 mg BID [facility] Administration Multivit/Ca Carb/B Cmplx/FA/Prenat 1 each 07/07/19 09:00 07/07/19 08:28 Nephrocaps PO 1 each DAILY [facility] Administration Naloxone HCl 0.2 mg 07/06/19 06:01 Narcan IV Q2M PRN Opioid Reversal Nifedipine 60 mg 07/07/19 09:00 07/07/19 08:27 Procardia Xl PO 60 mg DAILY [facility] Administration Non-Formulary Medication 50 mg 07/06/19 09:00 07/06/19 17:38 Etanercept [Enbrel] SQ Not Given LUU [facility] Pantoprazole Sodium 40 mg 07/07/19 07:30 07/07/19 06:31 Protonix PO 40 mg AC-BRKFST [facility] Administration Objective - Vital Signs Vital signs: Vital Signs Temp 97.7 F 07/07/19 12:18 Pulse 65 07/07/19 12:18 Resp 18 07/07/19 12:18 BP 128/67 07/07/19 12:18 Pulse Ox 96 07/07/19 12:18 Intake & Output 07/06/19 07/07/19 07/07/19 18:59 06:59 18:59 Intake Total 240 540 360 Output Total 2700 50 100 Balance -2460 490 260 Weight 122.47 kg 122.47 kg Intake: Oral 240 540 360 Output: Urine 50 100 Hemodialysis 2700 Other: # Voids 1 1 1 # Bowel Movements 1 - Exam GENERAL: The patient is alert and oriented x3, not in any acute distress. Well developed, well nourished. HEENT: Pupils are round and equally reacting to light. EOMI. No scleral icterus. No conjunctival pallor. Normocephalic, atraumatic. No pharyngeal erythema. No thyromegaly. CARDIOVASCULAR: S1 and S2 present. No murmurs, rubs, or gallops. PULMONARY: Chest is clear to auscultation, no wheezing or crackles. ABDOMEN: Soft, nontender, nondistended, normoactive bowel sounds. No palpable organomegaly. -MUSCULOSKELETAL: No joint swelling or deformity. Stage II coccygeal ulcer -EXTREMITIES: No cyanosis, clubbing, or pedal edema. Chronic bilateral lower extremity ulcer NEUROLOGICAL: Gross neurological examination did not reveal any focal deficits. SKIN: No rashes. no petechiae. - Labs CBC & Chem 7: 07/06/19 04:20 07/07/19 06:35 Labs: Abnormal Lab Results - Last 24 Hours (Table) 07/06/19 07/06/19 07/07/19 Range/Units 17:03 20:31 06:09 Potassium (3.5-5.1) mmol/L Carbon Dioxide (22-30) mmol/L BUN (9-20) mg/dL Creatinine (0.66-1.25) mg/dL Glucose (74-99) mg/dL POC Glucose (mg/dL) 149 H 198 H 167 H (75-99) mg/dL 07/07/19 07/07/19 Range/Units 06:35 11:23 Potassium 5.7 H (3.5-5.1) mmol/L Carbon Dioxide 17 L (22-30) mmol/L BUN 124 H* (9-20) mg/dL Creatinine 13.06 H* (0.66-1.25) mg/dL Glucose 162 H (74-99) mg/dL POC Glucose (mg/dL) 138 H (75-99) mg/dL Assessment and Plan Assessment: 1. Dyspnea related to acute exacerbation of chronic congestive heart failure with systolic dysfunction - Patient is in fluid overload due to missed hemodialysis; continue with hemodialysis as indicated 2. Chronic recurrent left pleural effusion; - most recent thoracentesis with 1.2 L removed by IR on 07/01/2019 which was negative for malignancy; pulmonary is consulted , follow-up chest ultrasound 3. Orthopnea, worsening dyspnea, and lower extremity edema related to the above; improved 4. End-stage renal disease/ HD with hyperkalemia; dialysis days- Sunday day Sunday schedule; patient was dialyzed on 06/17/2019 milligrams removal of 3- 1/2 L of fluid, and is having another repeat hemodialysis treatment today; patient will start his regular MWF. Follow-up potassium level 5. Chronic bilateral lower extremity wounds, wound care service following the patient for his chronic ulceration of bilateral lower extremity and bilateral feet. However he has also coccygeal ulceration, stage II pressure ulcer, continue with Lg wrap and leg elevation and follow-up with wound care center upon discharge 6. Diabetes mellitus type 2 with diabetic neuropathy and diabetic retinopathy; continue with Levemir 35 units at bedtime and monitor Accu-Cheks every before meals and at bedtime with insulin sliding scale 7. Chronic obstructive pulmonary disease on home oxygen; Symbicort inhaler 2 puffs twice a day along with albuterol nebulizer treatments 4 times a day 8. Rheumatoid arthritis; continue with home dose of Enbrel 9. History of seizure disorder; levocarnitine 3:30 milligrams by mouth 3 times a day 10. Paroxysmal atrial fibrillation; currently in A. fib, was previously on Eliquis DVT prophylaxis; SCDs CODE STATUS; full code
[2019-07-08 06:01] LABS: Glucose,Whole Blood 207 mg/dL (75-99)
[2019-07-08] MEDS: SODIUM CHLORIDE 0.9% 1,000 ML IV SCH (06:02)
[2019-07-08] MEDS: PANTOPRAZOLE 40 MG TABLET PO SCH (06:05)
[2019-07-08] MEDS: CALCIUM ACETATE 667 MG TAB PO SCH ×3 (06:06→16:49)
[2019-07-08] MEDS: CALCIUM CARB-MAG CARB-FOLIC 1 EACH TAB PO SCH ×2 (06:07→16:49)
[2019-07-08] MEDS: INSULIN ASPART (NovoLOG) 100 UNIT/ML VIAL SQ SCH ×4 (06:08→21:23)
[2019-07-08 06:35] LABS: Anisocytosis Slight; Basophils % (A) 1 %; Eosinophils # (A) 0.2 k/uL (0-0.7); Eosinophils % (A) 3 %; HCT 35.1 % (39.0-53.0); HGB 10.8 gm/dL (13.0-17.5); Lymphocytes # (A) 0.6 k/uL (1.0-4.8); Lymphocytes % (A) 7 %; MCH 31.3 pg (25.0-35.0); MCHC 30.6 g/dL (31.0-37.0); MCV 102.3 fL (80.0-100.0); Macrocytosis Moderate; Mean Platelet Volume 9.2; Monocytes # (A) 0.6 k/uL (0-1.0); Monocytes % (A) 7 %; Neutrophils # (A) 5.9 k/uL (1.3-7.7); Neutrophils % (A) 79 %; Platelet Count 173 k/uL (150-450); RBC 3.44 m/uL (4.30-5.90); RDW 16.5 % (11.5-15.5); WBC 7.5 k/uL (3.8-10.6)
[2019-07-08 06:48] LABS: Calcium 8.4 mg/dL (8.4-10.2); Potassium 4.9 mmol/L (3.5-5.1)
[2019-07-08] MEDS: ALBUTEROL HFA INHALER INHALATION SCH ×4 (07:40→19:55)
[2019-07-08] MEDS: SYMBICORT 160-4.5 MCG INHALER INHALATION SCH ×2 (07:40→19:51)
[2019-07-08] MEDS: FAMOTIDINE 20 MG TAB PO SCH (08:02)
[2019-07-08] MEDS: METOPROLOL TARTRATE 50 MG TAB PO SCH ×2 (08:02→21:22)
[2019-07-08] MEDS: ASPIRIN 81 MG PO SCH (08:02)
[2019-07-08] MEDS: levOCARNitine (WITH SUGAR) 100 MG/ML BOTTLE PO SCH ×3 (08:03→21:27)
[2019-07-08] MEDS: FUROSEMIDE 80 MG TAB PO SCH ×2 (08:03→16:49)
[2019-07-08] MEDS: FENOFIBRATE 160 MG TAB PO SCH (08:03)
[2019-07-08] MEDS: FOLIC ACID-VIT B COMPLEX-VIT C 1 CAP PO SCH (08:03)
[2019-07-08] MEDS: ACETAMINOPHEN TAB 325 MG TAB PO PRN (09:17)
[2019-07-08 11:38] LABS: Glucose,Whole Blood 148 mg/dL (75-99)
--- NOTE | 2019-07-08 14:40 | P.PN ---
Subjective Progress Note Date: 07/08/19 Principal diagnosis: Chronic left pleural effusion This is a 69-year-old gentleman who follows with Dr. Rosen and has a history of of end-stage renal disease on hemodialysis on Sunday basis, paroxysmal atrial fibrillation, chronic congestive heart failure with systolic dysfunction, diabetes mellitus, hypertension, rheumatoid arthritis, seizure disorder, chronic wounds involving bilateral lower extremities, cellulitis, patient goes to the wound care clinic, anxiety, and former smoker. He presented to the emergency room this morning with a history of shortness of breath. He did miss a dialysis treatment 2 days ago due to not feeling well. He does have a history of a recurrent pleural effusion and had a recent thoracentesis done on 07/01/2019 with 1.2 liters of straw-colored fluid reviewed. Negative for malignancy. Chest x-ray reveals a large left pleural effusion and left lower lobe pulmonary consolidation. We are consulted for the same. He is seen today in consultation on the selective care unit. He is currently sitting up in a recliner at the bedside. Receiving hemodialysis now. White count 7.3. Hemoglobin 10.4. Potassium 6.8. Creatinine 13.9. ProBNP 56,100. The patient was seen in follow-up 07/07/[address] Reeder. He is currently sitting up in bed in no acute distress. Denies any pain or shortness of breath. Chest x-ray was reviewed this morning, left pleural effusion present which is chronic. He received dialysis yesterday with 2 L taken off. He is to receive dialysis again today. His oxygen saturations are 92-93% on room air. Patient was reevaluated today on 07/08/19, patient is on room air, O2 saturation is 97%. Patient had 3 L removed during his last hemodialysis. Ultrasound showed good sized left-sided pleural effusion, however considering the effusion is chronic and the patient is asymptomatic no plans to perform thoracentesis on this patient. CBC is normal, I'll elect lites are normal BUN is 85 creatinine 9.87. Objective - Vital Signs Vital signs: Vital Signs Temp 98.1 F 07/08/19 12:44 Pulse 72 07/08/19 12:44 Resp 20 07/08/19 12:44 BP 129/67 07/08/19 12:44 Pulse Ox 94 L 04/07/20 12:44 Intake & Output 07/07/19 07/08/19 07/08/19 18:59 06:59 18:59 Intake Total 480 720 Output Total 3100 Balance -2620 720 Weight 122.47 kg 118.9 kg Intake: Oral 480 720 Output: Urine 100 Hemodialysis 3000 Other: # Voids 1 1 - Exam Physical Exam: Revealed a 69-year-old white male in no distress, on room air. Head: Atraumatic normocephalic. HEENT:[Neck is supple.] [No neck masses.] [No thyromegaly.] [No JVD.] Chest: Symmetrical chest expansion, diminished breath sounds and dullness at the left base. Cardiac Exam: [Irregular irregular rhythm, no S3 gallop. Abdomen: [Soft, nontender, no megaly, no rebound, no guarding, normal bowel sounds.] Extremities: [No clubbing, 2+ bipedal edema, no cyanosis.] Neurological Exam: [No focal neurologic deficit.] Alert and oriented 3. Psychiatric: Normal mood, affect and normal mental status examination. Skin: Chronic wounds noted bilaterally on lower extremities, Lg wrap symptoms Musculoskeletal: No deformities and no limitation in range of motion. - Labs CBC & Chem 7: 07/08/19 06:09 07/08/19 06:09 Labs: Abnormal Lab Results - Last 24 Hours (Table) 07/07/19 07/07/19 07/08/19 Range/Units 16:37 21:40 06:00 RBC (4.30-5.90) m/uL Hgb (13.0-17.5) gm/dL Hct (39.0-53.0) % MCV (80.0-100.0) fL MCHC (31.0-37.0) g/dL RDW (11.5-15.5) % Lymphocytes # (1.0-4.8) k/uL BUN (9-20) mg/dL Creatinine (0.66-1.25) mg/dL Glucose (74-99) mg/dL POC Glucose (mg/dL) 147 H 198 H 207 H (75-99) mg/dL 07/08/19 07/08/19 07/08/19 Range/Units 06:09 06:09 11:36 RBC 3.44 L (4.30-5.90) m/uL Hgb 10.8 L (13.0-17.5) gm/dL Hct 35.1 L (39.0-53.0) % MCV 102.3 H (80.0-100.0) fL MCHC 30.6 L (31.0-37.0) g/dL RDW 16.5 H (11.5-15.5) % Lymphocytes # 0.6 L (1.0-4.8) k/uL BUN 85 H (9-20) mg/dL Creatinine 9.87 H* (0.66-1.25) mg/dL Glucose 184 H (74-99) mg/dL POC Glucose (mg/dL) 148 H (75-99) mg/dL Assessment and Plan Assessment: Impression: Shortness of breath, multifactorial, mostly related to acute exacerbation of c hronic systolic congestive heart failure, fluid overload secondary to missed dialysis. Chronic recurrent left-sided pleural effusion, transudate of in nature related to his underlying renal failure and systolic congestive heart failure no need to perform thoracentesis at this point. End-stage renal disease, on hemodialysis. Paroxysmal atrial fibrillation. Type 2 diabetes with diabetic neuropathy and nephropathy as well as retinopathy History of mitral valve endocarditis. History of chronic hypoxic respiratory failure related to COPD and chronic systolic congestive heart failure Rheumatoid arthritis. History of seizure disorder. Chronic venous insufficiency and peripheral vessel occlusive disease involving lower extremities. History of cellulitis involving lower extremities secondary to Pseudomonas and staph species. Recommendation: Reviewed ultrasound and chest x-ray, and considering the patient is relatively asymptomatic, and considering the effusion is chronic, and seems to recur no matter what we do, best to leave it alone for now, and no plans to perform thoracentesis. Continue hemodialysis as per nephrology. Patient is presently on room air, consider discharge planning and follow-up on outpatient basis. We'll follow on when necessary basis. Time with Patient: Less than 30
--- NOTE | 2019-07-08 15:20 | PN ---
PROGRESS NOTE Patient is seen for followup for end-stage renal disease. He is currently doing well. Patient had initially refused dialysis yesterday; however, he then agreed and then completed his 3 hour treatment. He denies any significant complaints today. Patient is encouraged to come for his treatments regularly as outpatient and avoid missing treatments. BUN was as high as 134 on this admission, currently down to 85. PHYSICAL EXAMINATION: Today, blood pressure was 133/66, heart rate 77 per minute, patient is afebrile. Examination of the heart S1, S2. Examination of the lungs, bilateral breath sounds are heard. Abdomen is soft, nontender. Examination of the lower extremities, bilateral extremities are wrapped. GROUP DIRECTOR EXPERIENCE exam grossly intact. LABS: Show hemoglobin 10.8, sodium 138, potassium 4.9, BUN 85, creatinine 9.87. ASSESSMENT: 1. End-stage renal disease, on hemodialysis on a Sunday, Sunday, Sunday schedule. We will plan for hemodialysis again tomorrow. Increase UF as tolerated. 2. Bilateral lower extremity cellulitis. 3. Chronic left pleural effusion. 4. Chronic obstructive pulmonary disease. 5. History of rheumatoid arthritis, maintained on Embril. 6. 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 PLAN: Hemodialysis in a.m. Increase UF as tolerated. MMODL / IJN: [id number] /
--- NOTE | 2019-07-08 16:30 | PN ---
PROGRESS NOTE DATE OF SERVICE: 07/08/2019 This 69-year-old gentleman with a past medical history of multiple medical problems, including history of hemodialysis, history of CHF with chronic systolic dysfunction, being followed by Dr. Rosen in the outpatient setting, was admitted with complaints of shortness of breath. The patient also has CHF as well as pleural effusion. The patient had previous thoracocentesis earlier last month which showed a transudate with no evidence of malignancy in the cytology. Currently Dr. Reeder is following the patient closely. Patient apparently had 1.2 L of fluid removed and currently pleural effusion is thought to be rather chronic and secondary to CHF as well as chronic renal failure without any other obvious pathology. So, as mentioned earlier, the most recent 2D echo, which was done in May, showed evidence of slightly reduced ejection fraction, about 40% to 45%, also. Patient is being closely monitored. Patient is on a Sunday, Sunday, Sunday dialysis schedule. ECF rehab is also being contemplated. Past medical history reviewed. The patient is still short of breath on mild exertion. REVIEW OF SYSTEMS: CARDIOVASCULAR SYSTEM: No angina, palpitations. RESPIRATORY SYSTEM: As mentioned earlier. GI: As mentioned earlier. : No dysuria or retention. NERVOUS SYSTEM: No numbness, weakness. CURRENT MEDICATIONS: 1. Tylenol 650 q.6 p.r.n. 2. Albuterol q.i.d. 3. Xanax 0.25 t.i.d. 4. Aspirin 81 mg p.o. daily. 5. Symbicort 160/4.5 two puffs b.i.d. 6. PhosLo 1334 t.i.d. 7. Pepcid 20 mg p.o. daily. 8. Lofibra 160 mg p.o. daily. 9. Lasix 80 mg p.o. b.i.d. 10.NovoLog scale. 11.Levemir 35 units subcutaneously at bedtime. 12.Carnitor 330 mg p.o. t.i.d. 13.Lopressor 50 mg p.o. b.i.d. 14.Multivitamins 1 p.o. daily. 15.Narcan. 16.Procardia XL 60 mg p.o. daily. 17.Enbrel 50 mg subcutaneously as scheduled. 18.Protonix 40 mg b.i.d. 19.IV fluids. PHYSICAL EXAMINATION: Patient is alert, oriented x3. Pulse is 72, blood pressure 129/67, respirations 16, temperature 98.1, pulse ox 94% on room air. HEENT: Conjunctivae normal. Oral mucosa moist. NECK: No jugular venous distention. No carotid bruit. No lymph node enlargement. CARDIOVASCULAR SYSTEM: S1, S2 muffled. RESPIRATORY SYSTEM: Breath sounds diminished at the bases. A few scattered rhonchi and crackles. ABDOMEN: Soft, non-tender. No mass palpable. LEGS: No edema. No swelling. NERVOUS SYSTEM: Higher functions as mentioned earlier. Moves all 4 limbs. No focal motor or sensory deficit. LYMPHATICS: No lymph node palpable in neck, axillae or groin. SKIN: No ulcer, rash, bleeding. JOINTS: No active deforming arthropathy. LABS: Labs at this time show WBC 7.5, hemoglobin 10.8. Sodium 138, creatinine is 9.87. ASSESSMENT: 1. Shortness of breath, possibly secondary to congestive heart failure, acute exacerbation, with acute on chronic systolic dysfunction, ejection fraction 40% to 45%. 2. Chronic left pleural effusion, status post thoracocentesis and previously found to be transudate secondary to chronic renal failure as well as possibly from congestive heart failure. 3. End-stage renal disease, stage IV, on hemodialysis. 4. Hyperkalemia, present on admission, secondary to renal failure. 5. Obesity with body mass index of 32.8. 6. History of atrial fibrillation. 7. History of asthma. 8. History of congestive heart failure. 9. Diabetes mellitus, type 2. 10.History of gastroesophageal reflux disease. 11.End-stage renal disease, on hemodialysis. 12.History of degenerative joint disease. 13.History of rheumatoid arthritis. 14.History of seizure disorder. 15.History of diabetic retinopathy. 16.History of legal blindness. 17.Chronic neuropathy, bilateral. 18.Gait dysfunction. 19.Paroxysmal atrial fibrillation. 20.History of hernia repair. 21.FULL CODE. RECOMMENDATIONS AND DISCUSSION: In this 69-year-old gentleman who presented with multiple complex medical issues, at this time I recommend to continue current medications, continue with hemodialysis. Otherwise, we will check with Pulmonary regarding any need for any further aspiration. Otherwise, shortness of breath is slightly better. Increase ambulation. PT/OT evaluation, possible ECF rehab. Guarded prognosis. Further recommendations to follow. MMODL / IJN: [id number] /
--- NOTE | 2019-07-08 16:36 | PN ---
PROGRESS NOTE DATE OF SERVICE: 07/07/2019 Patient is followed for end-stage renal disease. This morning patient had refused dialysis, however, I talked to him on the phone and he agreed to complete his treatment. He has been advised regarding the importance of compliance with his outpatient dialysis treatments. He was advised also that his BUN was significantly elevated on admission due to him missing treatments and he needs to comply with duration and his dialysis schedule as well. Vital signs were reviewed. Yesterday blood pressure had been ranging from 127 to 130 mmHg systolic, heart rate in the 70s, patient is afebrile. LABS: Labs were reviewed yesterday. Sodium 138, potassium 5.7, BUN 124, serum creatinine was 13.06. ASSESSMENT: 1. End-stage renal disease on hemodialysis on a Sunday, Sunday, Sunday schedule. Missing treatments as outpatient recently. 2. Volume overload. 3. Bilateral lower extremity cellulitis. 4. Hyperkalemia. 5. Significantly elevated BUN and creatinine associated with noncompliance with hemodialysis as outpatient. Metabolic acidosis associated with renal failure. PLAN: Complete three-hour treatment today. Next treatment will be on Sunday. The patient has been talked to regarding importance of compliance with his outpatient treatments and to avoid cutting his treatments short. Maintain fluid restriction. Continue phosphate binders. Continue Enbrel for the rheumatoid arthritis. MMODL / IJN: [id number] /
[2019-07-08 17:13] LABS: Glucose,Whole Blood 218 mg/dL (75-99)
[2019-07-08 20:26] LABS: Glucose,Whole Blood 229 mg/dL (75-99)
[2019-07-08] MEDS: INSULIN DETEMIR (LEVEMIR) 100 UNIT/ML SYR SQ SCH (21:23)
[2019-07-09] MEDS: SODIUM CHLORIDE 0.9% 1,000 ML IV SCH (05:50)
[2019-07-09] MEDS: ALBUTEROL HFA INHALER INHALATION SCH ×3 (07:30→15:08)
[2019-07-09] MEDS: SYMBICORT 160-4.5 MCG INHALER INHALATION SCH (07:30)
[2019-07-09 07:52] LABS: Glucose,Whole Blood 60 mg/dL (75-99)
[2019-07-09 08:05] LABS: Glucose,Whole Blood 60 mg/dL (75-99)
--- NOTE | 2019-07-09 08:06 | XR ---
EXAMINATION TYPE: XR chest 1V portable DATE OF EXAM: 07/09/2019 HISTORY: Shortness of breath. COMPARISON: 07/06/2019 TECHNIQUE: Single view of the chest is submitted. FINDINGS: Demonstrated are scattered senescent parenchymal change. Persistent dense opacification left lower lobe felt to reflect a combination of infiltrate, atelectas is and pleural effusion. Mild patchy density right perihilar region. Overall no change appreciated. The heart is stable. Hilar and mediastinal structures are within normal limits. Degenerative changes are seen of the dorsal spine. IMPRESSION: 1. Persistent dense opacification left lower lobe felt to reflect a combination of infiltrate, atele ctasis and pleural effusion. Mild patchy density right perihilar region. Overall no change appreciate d.
[2019-07-09 08:23] LABS: Glucose,Whole Blood 89 mg/dL (75-99)
[2019-07-09] MEDS: METOPROLOL TARTRATE 50 MG TAB PO SCH (08:51)
[2019-07-09] MEDS: FENOFIBRATE 160 MG TAB PO SCH (08:51)
[2019-07-09] MEDS: CALCIUM ACETATE 667 MG TAB PO SCH ×2 (08:52→12:02)
[2019-07-09] MEDS: FUROSEMIDE 80 MG TAB PO SCH (08:52)
[2019-07-09] MEDS: ASPIRIN 81 MG PO SCH (08:52)
[2019-07-09] MEDS: PANTOPRAZOLE 40 MG TABLET PO SCH (08:53)
[2019-07-09] MEDS: FAMOTIDINE 20 MG TAB PO SCH (08:53)
[2019-07-09] MEDS: INSULIN ASPART (NovoLOG) 100 UNIT/ML VIAL SQ SCH ×2 (08:58→12:19)
[2019-07-09] MEDS: ACETAMINOPHEN TAB 325 MG TAB PO PRN ×2 (09:05→14:31)
[2019-07-09] MEDS: levOCARNitine (WITH SUGAR) 100 MG/ML BOTTLE PO SCH (10:35)
[2019-07-09] MEDS: FOLIC ACID-VIT B COMPLEX-VIT C 1 CAP PO SCH (10:37)
[2019-07-09] MEDS: CALCIUM CARB-MAG CARB-FOLIC 1 EACH TAB PO SCH (10:37)
[2019-07-09 12:06] LABS: Glucose,Whole Blood 82 mg/dL (75-99)
--- NOTE | 2019-07-09 12:35 | P.DS ---
Providers Date of admission: 07/06/19 06:01 Expected date of discharge: 07/09/19 Attending physician: Germain Dowd Consults: 07/06/19 06:17 Consult Physician Stat Consulting Provider: Mina Castillo Consult Reason/Comments: Hemodialysis patient. Hyperkalemia. Do you want consulting provider notified?: Already Contacted 07/06/19 06:18 Consult Physician Routine Consulting Provider: Renetta Reeder Consult Reason/Comments: Recurrent pleural effusion Do you want consulting provider notified?: Yes Primary care physician: [facility] Course: Final diagnosis Shortness of breath, possibly secondary to congestive heart failure, acute exacerbation with acute on chronic systolic dysfunction, ejection fraction 40- 45% Chronic left pleural effusion, status post thoracentesis and previously found to be transudate secondary to chronic renal failure as well as possibly from congestive heart failure End-stage renal disease, stage IV, on hemodialysis Hyperkalemia, present on admission, secondary to renal failure Obesity with body mass index of 32.8 history of atrial fibrillation history of asthma history of congestive heart failure Diabetes mellitus type 2 History of gastroesophageal reflux disease End-stage renal disease, on high hemodialysis History of degenerative joint disease history of rheumatoid arthritis history of seizure disorder History of diabetic retinopathy history of legal blindness Chronic neuropathy, bilateral Gait dysfunction Paroxysmal atrial fibrillation history of hernia repair Full code Discharge disposition Patient is being discharged in a stable condition with guarded prognosis to [facility] for continued PT/OT therapy. Patient will follow-up with Dr. Rosen in the outpatient setting. Total time taken greater than 35 minutes. History of present illness This is a 69-year-old male who was recently admitted with increasing shortness of breath and was being closely monitored. Patient does have a history of co ngestive heart failure with chronic systolic dysfunction along with chronic pleural effusions and end-stage renal disease and is hemodialysis dependent. Patient continues with hemodialysis Sunday/Sunday/Sunday. Most recent admission patient did undergo thoracentesis of the pleural effusion and was seen and evaluated by pulmonary during this admission and did not undergo repeat thoracentesis at this time. Patient will need to follow-up with pulmonary in the outpatient setting. Patient continued to be quite weak requiring 1-2 person assist and was seen and evaluated by physical therapy and will be going to [facility] for continued PT/OT therapy. Patient will continue on oral diuretic therapy and is to maintain a low potassium, low sodium renal diet. Patient also has a history of diabetes mellitus and will continue with monitoring blood sugars before meals at bedtime and treat accordingly with sliding scale along with long-acting insulin. Instructed to hold insulin if blood sugars are under 100. Currently no reports of chest pain, palpitations, or worsening shortness of breath. Patient is afebrile. No reports of nausea or vomiting and patient is tolerating diet. Patient will receive dialysis today and continue with his normal schedule of Sunday/Sunday/Sunday. Patient will be discharged to [facility] this afternoon. On exam vital signs are stable. Temp is 97.6F, pulse is 77, respirations are 16, blood pressure is 145/78, oxygen saturation is 94% on room air. Cardio S1, S2 are muffled. Respiratory system shows diminished breath sounds with a few scattered rhonchi noted. No wheezing or crackles noted on exam. Abdomen is soft, obese, and nontender. Nervous system shows moderate diffuse weakness. Please refer to medication reconciliation sheet for a list of medications. Patient Condition at Discharge: Stable Plan - Discharge Summary Discharge Rx Participant: No New Discharge Prescriptions: New INSULIN ASPART (NovoLOG) [NovoLOG (formulary)] 0 unit SQ ACHS vial Acetaminophen Tab [Tylenol] 650 mg PO Q6HR PRN tab PRN Reason: Mild Pain Or Fever > 100.5 Continue NIFEdipine [NIFEdipine ER] 60 mg PO DAILY Etanercept [Enbrel] 50 mg SQ LUU Gemfibrozil [Lopid] 600 mg PO BID Aspirin EC [Ecotrin Low Dose] 81 mg PO DAILY Budesonide-Formot 160-4.5 Mcg [Symbicort 160-4.5 Mcg Inhaler] 2 puff INHALATION RT-BID Omeprazole 40 mg PO DAILY Metoprolol Tartrate [Lopressor] 50 mg PO BID Calcium Acetate [PhosLo] 1,334 mg PO TID-W/MEALS Magnebind 250/300mg 1 tab PO BID-W/MEALS Prorenal + D 1 tab PO DAILY Albuterol Nebulized [Ventolin Nebulized] 2.5 mg INHALATION RT-QID Furosemide [Lasix] 80 mg PO BID@0900,1600 tab Famotidine [Pepcid] 20 mg PO BID #30 tablet Insulin Glargine,Hum.rec.anlog [Lantus Solostar] 35 unit SQ HS levOCARNitine [Levocarnitine] 330 mg PO TID ALPRAZolam [Xanax] 0.25 mg PO TID PRN 3 Days #9 tab PRN Reason: anxiety Discontinued Insulin Lispro [humaLOG Kwikpen] See Protocol SQ ACHS Acetaminophen Tab [Tylenol] 500 mg PO Q6HR PRN tab PRN Reason: Fever And/ Or Pain Discharge Medication List Etanercept [Enbrel] 50 mg SQ LUU 06/12/14 [History] NIFEdipine [NIFEdipine ER] 60 mg PO DAILY 06/12/14 [History] Aspirin EC [Ecotrin Low Dose] 81 mg PO DAILY 07/31/18 [History] Gemfibrozil [Lopid] 600 mg PO BID 07/31/18 [History] Budesonide-Formot 160-4.5 Mcg [Symbicort 160-4.5 Mcg Inhaler] 2 puff INHALATION RT-BID 02/26/19 [History] Calcium Acetate [PhosLo] 1,334 mg PO TID-W/MEALS 02/26/19 [History] Magnebind 250/300mg 1 tab PO BID-W/MEALS 02/26/19 [History] Metoprolol Tartrate [Lopressor] 50 mg PO BID 02/26/19 [History] Omeprazole 40 mg PO DAILY 02/26/19 [History] Prorenal + D 1 tab PO DAILY 02/26/19 [History] Albuterol Nebulized [Ventolin Nebulized] 2.5 mg INHALATION RT-QID 03/17/19 [History] Famotidine [Pepcid] 20 mg PO BID #30 tablet 03/20/19 [Rx] Furosemide [Lasix] 80 mg PO BID@0900,1600 tab 03/20/19 [Rx] Insulin Glargine,Hum.rec.anlog [Lantus Solostar] 35 unit SQ HS 06/16/19 [History] levOCARNitine [Levocarnitine] 330 mg PO TID 06/27/19 [History] ALPRAZolam [Xanax] 0.25 mg PO TID PRN 3 Days #9 tab 07/09/19 [Rx] Acetaminophen Tab [Tylenol] 650 mg PO Q6HR PRN tab 07/09/19 [Rx] INSULIN ASPART (NovoLOG) [NovoLOG (formulary)] 0 unit SQ ACHS vial 07/09/19 [Rx] Follow up Appointment(s)/Referral(s): Nell Rosen MD [Primary Care Provider] - 1 Week (please call office to set up appt. time and date.) [facility], [NON-STAFF] - 1-2 Days (home care will call you to set up schedule, any questions please call agency. ) Activity/Diet/Wound Care/Special Instructions: Patient is going to [facility] Activity as tolerated Continue current renal diet, low potassium, low-sodium Continue with dialysis Sunday/Sunday/Sunday Continue with wound care by applying Triad to the coccyx ulceration, and wound care to the bilateral lower extremities apply absorptive silver, saline moistened gauze, dry gauze roll and feet wrapped with Lg wraps to help minimize edema and this is to be changed Sunday/Sunday/Sunday. Patient is instructed to continue elevating the legs while at rest as much as possible and will need wound care follow-up in the outpatient setting Continue to monitor blood sugars before meals at bedtime and treat accordingly with sliding scale and hold insulin and long-acting blood glucoses less than 100 Continue working with physical therapy Discharge Disposition: TRANSFER TO SNF/ECF
[2019-07-09 14:34] VITALS: BP 136/52; PULSE 66; RESP 18; TEMP 98.2
--- NOTE | 2019-07-09 16:48 | PN ---
PROGRESS NOTE Patient is seen for followup for end-stage renal disease. He is currently comfortable. The patient denies any significant complaints. He is scheduled for hemodialysis today. Both his lower extremities are wrapped. Volume status seems to have improved to some degree. On examination today, blood pressure was 145/78, heart rate 77 per minute, patient is afebrile. EXAMINATION OF THE HEART: S1 and S2. EXAMINATION OF THE LUNGS: Decreased breath sounds at the bases. ABDOMEN: Soft, nontender, obese. Examination of the lower extremities shows edema, chronic skin changes, both lower extremities are wrapped. LABS: From yesterday showed potassium 4.9, sodium 138. ASSESSMENT: 1. End-stage renal disease on hemodialysis on a Sunday, Sunday, Sunday schedule, status post dialysis today. We had about 3 liters of ultrafiltration. The patient tolerated it well. He can be discharged and he will followup for dialysis again tomorrow and then he will be switched to a TTS schedule. This will be as outpatient. 2. Volume overload, slowly improving. 3. Bilateral lower extremity cellulitis, both legs are wrapped. 4. Anemia of chronic disease. 5. 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 PLAN: Hemodialysis today. Patient can be discharged post dialysis. Followup as outpatient for dialysis tomorrow morning. MMODL / IJN: [id number] /
== END 2019-07-09 16:41 | DRG 291 ==
LOC: EC 04:02 → 3SCARD 06:01 → 6NMEDSUR 07-08 22:05
PROVIDERS: ADMIT Hospitalist; ATTEND Hospitalist
PROC: 5A1D70Z Performance of Urinary Filtration, Intermittent, Less than 6 Hours Per Day (ICD-10-PCS; principal; 2019-07-06)
DX: I13.2 Hypertensive heart and chronic kidney disease with heart failure and with stage 5 chronic kidney disease, or end stage renal disease (principal); I50.23 Acute on chronic systolic (congestive) heart failure; N18.6 End stage renal disease; J96.11 Chronic respiratory failure with hypoxia; E87.2 Acidosis; J91.8 Pleural effusion in other conditions classified elsewhere; L97.812 Non-pressure chronic ulcer of other part of right lower leg with fat layer exposed; L97.821 Non-pressure chronic ulcer of other part of left lower leg limited to breakdown of skin; L97.411 Non-pressure chronic ulcer of right heel and midfoot limited to breakdown of skin; L97.421 Non-pressure chronic ulcer of left heel and midfoot limited to breakdown of skin; L03.115 Cellulitis of right lower limb; L03.116 Cellulitis of left lower limb; L89.152 Pressure ulcer of sacral region, stage 2; E11.319 Type 2 diabetes mellitus with unspecified diabetic retinopathy without macular edema; E83.9 Disorder of mineral metabolism, unspecified; D63.1 Anemia in chronic kidney disease; E11.22 Type 2 diabetes mellitus with diabetic chronic kidney disease; E11.40 Type 2 diabetes mellitus with diabetic neuropathy, unspecified; E11.622 Type 2 diabetes mellitus with other skin ulcer; E11.621 Type 2 diabetes mellitus with foot ulcer; E11.51 Type 2 diabetes mellitus with diabetic peripheral angiopathy without gangrene; I87.2 Venous insufficiency (chronic) (peripheral); G40.909 Epilepsy, unspecified, not intractable, without status epilepticus; I48.0 Paroxysmal atrial fibrillation; H54.8 Legal blindness, as defined in USA; E87.5 Hyperkalemia; I44.7 Left bundle-branch block, unspecified; J44.9 Chronic obstructive pulmonary disease, unspecified; F41.9 Anxiety disorder, unspecified; K21.9 Gastro-esophageal reflux disease without esophagitis; M19.90 Unspecified osteoarthritis, unspecified site; M06.9 Rheumatoid arthritis, unspecified; F32.9 Major depressive disorder, single episode, unspecified; R26.9 Unspecified abnormalities of gait and mobility; E66.9 Obesity, unspecified; Z68.34 Body mass index [BMI] 34.0-34.9, adult; Z99.81 Dependence on supplemental oxygen; Z79.82 Long term (current) use of aspirin; Z79.51 Long term (current) use of inhaled steroids; Z79.4 Long term (current) use of insulin; Z79.899 Other long term (current) drug therapy; Z91.19 Patient's noncompliance with other medical treatment and regimen; Z99.2 Dependence on renal dialysis; Z91.15 Patient's noncompliance with renal dialysis; Z87.891 Personal history of nicotine dependence; Z87.01 Personal history of pneumonia (recurrent); Z86.19 Personal history of other infectious and parasitic diseases; Z98.42 Cataract extraction status, left eye; Z98.41 Cataract extraction status, right eye; Z98.890 Other specified postprocedural states; Z86.79 Personal history of other diseases of the circulatory system; Z87.19 Personal history of other diseases of the digestive system; Z71.3 Dietary counseling and surveillance; Z88.2 Allergy status to sulfonamides; Z83.3 Family history of diabetes mellitus; Z80.9 Family history of malignant neoplasm, unspecified
CPT/HCPCS: 36415; 71045; 76604; 80048; 80053; 83605; 83880; 84484; 85025; 85610; 85730; 90935; 93005; 94640; 99291

== ENCOUNTER → 2019-08-14 | Outpatient (CLI) | payer MEDICARE ==
--- NOTE | 2019-08-14 13:14 | XR ---
EXAMINATION TYPE: XR foot complete RT DATE OF EXAM: 08/14/2019 CLINICAL HISTORY: History of diabetes with lateral ulcer, pain and swelling TECHNIQUE: Frontal, lateral, and oblique images of the right foot are obtained. COMPARISON: Right foot x-ray June 05, 2019 FINDINGS: There is overlying splint or cast material seen making evaluation suboptimal. There is randle eli interval cortical destruction involving the head of fifth metatarsal. Some poor definition of bas e of fifth proximal phalanx also identified Flexion in the toes is noted. Large inferior calcaneal sp ur with vascular calcification again seen IMPRESSION: There is acute osteomyelitis centered fifth metatarsophalangeal joint as detailed above.
== END | disposition home or self-care (01) ==
LOC: RADXRMAIN 12:46
PROVIDERS: ATTEND Nurse Practitioner Family
DX: E11.621 Type 2 diabetes mellitus with foot ulcer (principal); M86.171 Other acute osteomyelitis, right ankle and foot; E11.69 Type 2 diabetes mellitus with other specified complication

== ENCOUNTER → 2019-08-19 | Outpatient (CLI) | payer MEDICARE ==
--- NOTE | 2019-08-19 17:01 | NM ---
EXAMINATION TYPE: NM bone 3 phase DATE OF EXAM: 08/19/2019 COMPARISON: 08/14/2019 x-ray HISTORY: Rheumatoid polyneuropathy Triple phase bone scintigraphy was performed following the injection of 22.5 mCi Tc 99m MDP. Immedia te images and 7.5 hours post injection images acquired. Images were obtained of the bilateral feet FINDINGS: Blood flow: There is increased blood flow to the right lower extremity compared to the left. Blood pool: Diffuse radiotracer uptake is greater on the right foot the left. Delayed images: There is some focal radiotracer accumulation along the region of the distal fifth met atarsal phalangeal joint space. Radiotracer is otherwise unremarkable. IMPRESSION: Increased radiotracer accumulation blood flow, blood pool and focally on static images along the fift h metatarsal phalangeal joint space. Findings can be consistent suggestive for acute osteomyelitis. T his corresponds to the findings on the plain film.
== END | disposition home or self-care (01) ==
LOC: RADNMMAIN 07:55
PROVIDERS: ATTEND Nurse Practitioner Family
DX: E11.621 Type 2 diabetes mellitus with foot ulcer (principal); E11.622 Type 2 diabetes mellitus with other skin ulcer; I87.2 Venous insufficiency (chronic) (peripheral); N18.6 End stage renal disease; E11.22 Type 2 diabetes mellitus with diabetic chronic kidney disease; Z99.2 Dependence on renal dialysis; I48.0 Paroxysmal atrial fibrillation; M05.9 Rheumatoid arthritis with rheumatoid factor, unspecified
CPT/HCPCS: 78315; A9503

== ENCOUNTER 2019-08-20 00:30 | Inpatient (IN) | payer MEDICARE ==
[2019-08-20 00:53] LABS: Basophils # (A) 0.1 k/uL (0-0.2); Basophils % (A) 1 %; Eosinophils # (A) 0.4 k/uL (0-0.7); Eosinophils % (A) 4 %; HCT 35.8 % (39.0-53.0); Hypochromasia Marked; Lymphocytes # (A) 1.7 k/uL (1.0-4.8); Lymphocytes % (A) 15 %; MCH 32.2 pg (25.0-35.0); MCHC 30.6 g/dL (31.0-37.0); MCV 105.2 fL (80.0-100.0); Macrocytosis Moderate; Mean Platelet Volume 8.2; Monocytes # (A) 0.6 k/uL (0-1.0); Monocytes % (A) 6 %; Neutrophils # (A) 8.2 k/uL (1.3-7.7); Neutrophils % (A) 74 %; Platelet Count 224 k/uL (150-450); RDW 15.9 % (11.5-15.5)
[2019-08-20 01:04] LABS: ALT 10 U/L (4-49); AST 16 U/L (17-59); African American GFR (CKD) 11 (>60 ml/min/1.73 sqM); Albumin 3.5 g/dL (3.5-5.0); Alcohol <10 mg/dL; Alkaline Phosphatase 122 U/L (38-126); Amylase 33 U/L (30-110); Anion Gap 15 mmol/L; Blood Urea Nitrogen 36 mg/dL (9-20); Calcium 8.9 mg/dL (8.4-10.2); Carbon Dioxide 29 mmol/L (22-30); Chloride 92 mmol/L (98-107); Glucose 296 mg/dL (74-99); Non-African American GFR(CKD) 10 (>60 ml/min/1.73 sqM); Potassium 4.8 mmol/L (3.5-5.1); Sodium 136 mmol/L (137-145); Total Bilirubin 0.5 mg/dL (0.2-1.3); Total Protein 7.3 g/dL (6.3-8.2)
[2019-08-20 01:07] LABS: Partial Thromboplastin Time 22.1 sec (22.0-30.0); Prothrombin Time 10.6 sec (9.0-12.0)
[2019-08-20] MEDS ORDERED: HYDROcodone/APAP 5-325MG 1 EACH TAB PO STA (01:12)
[2019-08-20] MEDS ORDERED: NALOXONE 0.4 MG/ML 1 ML VIAL IV PRN (01:26)
--- NOTE | 2019-08-20 01:55 | ED ---
General Adult HPI - General Chief complaint: Wound/Laceration Stated complaint: loss of blood Time Seen by Provider: 08/20/19 00:53 Source: patient, family, RN notes reviewed, old records reviewed Mode of arrival: wheelchair Limitations: no limitations - History of Present Illness Initial comments: 69-year-old male with history of end-stage renal disease receiving hemodialysis Sunday presents with 2 hours of bleeding from left upper e xtremity AV fistula. Patient presents in extremis, pale, diaphoretic and hypotensive. His is able to give the initial history stating that they removed the bandage from dialysis and he immediately had significant bleeding. It wrapped the extremity and Curlex and multiple towels. Patient had blood at home through the dressing, saturated his shirt and pants and had significant bleeding in the car during transport. Patient complaining of dyspnea, lightheadedness, nausea. Complaining of thirst. - Related Data Home Medications Medication Instructions Recorded Confirmed Etanercept [Enbrel] 50 mg SQ LUU 06/12/14 07/06/19 NIFEdipine [NIFEdipine ER] 60 mg PO DAILY 06/12/14 07/06/19 Aspirin EC [Ecotrin Low Dose] 81 mg PO DAILY 07/31/18 07/06/19 Gemfibrozil [Lopid] 600 mg PO BID 07/31/18 07/06/19 Budesonide-Formot 160-4.5 Mcg 2 puff INHALATION RT-BID 02/26/19 07/06/19 [Symbicort 160-4.5 Mcg Inhaler] Calcium Acetate [PhosLo] 1,334 mg PO TID-W/MEALS 02/26/19 07/06/19 Magnebind 250/300mg 1 tab PO BID-W/MEALS 02/26/19 07/06/19 Metoprolol Tartrate [Lopressor] 50 mg PO BID 02/26/19 07/06/19 Omeprazole 40 mg PO DAILY 02/26/19 07/06/19 Prorenal + D 1 tab PO DAILY 02/26/19 07/06/19 Albuterol Nebulized [Ventolin 2.5 mg INHALATION RT-QID 03/17/19 07/06/19 Nebulized] Insulin Glargine,Hum.rec.anlog 35 unit SQ HS 06/16/19 07/06/19 [Lantus Solostar] levOCARNitine [Levocarnitine] 330 mg PO TID 06/27/19 07/06/19 Previous Rx's Medication Instructions Recorded Famotidine [Pepcid] 20 mg PO BID #30 tablet 03/20/19 Furosemide [Lasix] 80 mg PO BID@0900,1600 tab 03/20/19 ALPRAZolam [Xanax] 0.25 mg PO TID PRN 3 Days #9 tab 07/09/19 Acetaminophen Tab [Tylenol] 650 mg PO Q6HR PRN tab 07/09/19 INSULIN ASPART (NovoLOG) [NovoLOG 0 unit SQ ACHS vial 07/09/19 (formulary)] Allergies Allergy/AdvReac Type Severity Reaction Status Date / Time sulfamethoxazole AdvReac Unknown Nausea & Verified 07/06/19 09:58 [From Bactrim] Vomiting trimethoprim [From Bactrim] AdvReac Unknown Nausea & Verified 07/06/19 09:58 Vomiting Review of Systems ROS Statement: Those systems with pertinent positive or pertinent negative responses have been documented in the HPI. ROS Other: All systems not noted in ROS Statement are negative. Past Medical History Past Medical History: Atrial Fibrillation, Asthma, Heart Failure, Diabetes Mellitus, Dialysis, Eye Disorder, GERD/Reflux, Hypertension, Osteoarthritis (OA), Pneumonia, Renal Disease, Rheumatoid Arthritis (RA), Seizure Disorder Additional Past Medical History / Comment(s): ESRD with hemodialysis, mineral bone disease, chronic anemia, IDDM type II, diabetic retinopathy-"legally blind", chronic neuropathy occasionally in toes bilateral feet and left leg, bilateral lower leg edema, cellulitis bilateral lower legs, past leg/foot wounds and currently has left medial leg wounds that have scabbed over and no longer goes to [facility], paroxysmal Afib, 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 History of Any Multi-Drug Resistant Organisms: None Reported Past Surgical History: Hernia Repair, Orthopedic Surgery Additional Past Surgical History / Comment(s): Bilateral cataract surgery, insertion dialysis catheter left arm then had a procedure done to dialysis catheter at [facility]-cannot recall exactly what was done, PICC line insertion/removed, bilateral inguinal hernina repairs, colonoscopy/polypectomy, R shoulder rotator cuff repair, debridements bilateral feet. Past Anesthesia/Blood Transfusion Reactions: No Reported Reaction Additional Past Anesthesia/Blood Transfusion Reaction / Comment(s): Pt received blood in past without reaction. Past Psychological History: Anxiety, Depression Smoking Status: Former smoker Past Alcohol Use History: None Reported Past Drug Use History: None Reported - Past Family History Mother Family Medical History: Diabetes Mellitus Father Family Medical History: Cancer Additional Family Medical History / Comment(s): Metastatic cancer. Pt cannot recall primary. General Exam Limitations: no limitations General appearance: lethargic, in distress Head exam: Present: atraumatic, normocephalic Eye exam: Present: normal appearance, PERRL ENT exam: Present: mucous membranes dry Neck exam: Present: normal inspection. Absent: tenderness, meningismus Respiratory exam: Present: normal lung sounds bilaterally. Absent: respiratory distress, wheezes Cardiovascular Exam: Present: regular rate, normal rhythm GI/Abdominal exam: Present: soft. Absent: distended, tenderness Extremities exam: Present: other (Left AV fistula with arterial hemorrhage, positive thrill) Course Vital Signs 08/20/19 08/20/19 00:39 01:37 Temperature 97.5 F L 97.5 F L Pulse Rate 70 68 Respiratory 22 16 Rate Blood Pressure 88/53 67/42 O2 Sat by Pulse 93 L 99 Oximetry Procedures - Laceration Laceration #1 Consent Obtained: verbal consent Indication: other (AV fistula arterial hemorrhage) Site: upper extremity Description: clean Anesthetic Used: lidocaine 1%, with epi Anesthesia Technique: local infiltration Amount (mls): 2 Type of Sutures: nylon Size of Sutures: 5-0 Number of Sutures: 2 Technique: other ([id number]) Patient Tolerated Procedure: well Medical Decision Making - Medical Decision Making 69-year-old male presenting in extremis with arterial hemorrhage from left upper extremity AV fistula. Initial hemostasis is achieved with direct pressure. IV is established, laboratory studies are obtained, patient is empirically transfused 1 unit of packed RBCs. He is pale, diaphoretic, hypotensive. [id number] suture is placed with hemostasis. I discussed case with the admitting physician, Dr. Reeder the activity therapist and Dr. Olvera covering for vascular surgery. Nephrology will be placed on consult as today is the patient's normal day for hemodialysis. Patient will be admitted to ICU with serial hemoglobins, close monitoring. - Lab Data Result diagrams: 08/20/19 00:45 08/20/19 00:45 Lab Results 08/20/19 08/20/19 08/20/19 Range/Units 00:45 00:45 00:45 WBC 11.0 H (3.8-10.6) k/uL RBC 3.40 L (4.30-5.90) m/uL Hgb 11.0 L (13.0-17.5) gm/dL Hct 35.8 L (39.0-53.0) % MCV 105.2 H (80.0-100.0) fL MCH 32.2 (25.0-35.0) pg MCHC 30.6 L (31.0-37.0) g/dL RDW 15.9 H (11.5-15.5) % Plt Count 224 (150-450) k/uL Neutrophils % 74 % Lymphocytes % 15 % Monocytes % 6 % Eosinophils % 4 % Basophils % 1 % Neutrophils # 8.2 H (1.3-7.7) k/uL Lymphocytes # 1.7 (1.0-4.8) k/uL Monocytes # 0.6 (0-1.0) k/uL Eosinophils # 0.4 (0-0.7) k/uL Basophils # 0.1 (0-0.2) k/uL Hypochromasia Marked Macrocytosis Moderate PT (9.0-12.0) sec INR (<1.2) APTT (22.0-30.0) sec Sodium 136 L (137-145) mmol/L Potassium 4.8 (3.5-5.1) mmol/L Chloride 92 L (98-107) mmol/L Carbon Dioxide 29 (22-30) mmol/L Anion Gap 15 mmol/L BUN 36 H (9-20) mg/dL Creatinine 5.53 H (0.66-1.25) mg/dL Est GFR (CKD-EPI)AfAm 11 (>60 ml/min/1.73 sqM) Est GFR (CKD-EPI)NonAf 10 (>60 ml/min/1.73 sqM) Glucose 296 H (74-99) mg/dL Plasma Lactic Acid John (0.7-2.0) mmol/L Calcium 8.9 (8.4-10.2) mg/dL Total Bilirubin 0.5 (0.2-1.3) mg/dL AST 16 L (17-59) U/L ALT 10 (4-49) U/L Alkaline Phosphatase 122 (38-126) U/L Troponin I (0.000-0.034) ng/mL Total Protein 7.3 (6.3-8.2) g/dL Albumin 3.5 (3.5-5.0) g/dL Amylase 33 (30-110) U/L Lipase 31 (23-300) U/L Serum Alcohol <10 mg/dL Blood Type O Positive Blood Type Recheck O Pos Bld Type Recheck Status No Antibody Screen NEGATIVE Crossmatch See Detail Spec Expiration Date 08/23/2019234408/20/19 08/20/19 08/20/19 Range/Units 00:45 00:45 00:45 WBC (3.8-10.6) k/uL RBC (4.30-5.90) m/uL Hgb (13.0-17.5) gm/dL Hct (39.0-53.0) % MCV (80.0-100.0) fL MCH (25.0-35.0) pg MCHC (31.0-37.0) g/dL RDW (11.5-15.5) % Plt Count (150-450) k/uL Neutrophils % % Lymphocytes % % Monocytes % % Eosinophils % % Basophils % % Neutrophils # (1.3-7.7) k/uL Lymphocytes # (1.0-4.8) k/uL Monocytes # (0-1.0) k/uL Eosinophils # (0-0.7) k/uL Basophils # (0-0.2) k/uL Hypochromasia Macrocytosis PT 10.6 (9.0-12.0) sec INR 1.0 (<1.2) APTT 22.1 (22.0-30.0) sec Sodium (137-145) mmol/L Potassium (3.5-5.1) mmol/L Chloride (98-107) mmol/L Carbon Dioxide (22-30) mmol/L Anion Gap mmol/L BUN (9-20) mg/dL Creatinine (0.66-1.25) mg/dL Est GFR (CKD-EPI)AfAm (>60 ml/min/1.73 sqM) Est GFR (CKD-EPI)NonAf (>60 ml/min/1.73 sqM) Glucose (74-99) mg/dL Plasma Lactic Acid John 4.8 H* (0.7-2.0) mmol/L Calcium (8.4-10.2) mg/dL Total Bilirubin (0.2-1.3) mg/dL AST (17-59) U/L ALT (4-49) U/L Alkaline Phosphatase (38-126) U/L Troponin I <0.012 (0.000-0.034) ng/mL Total Protein (6.3-8.2) g/dL Albumin (3.5-5.0) g/dL Amylase (30-110) U/L Lipase (23-300) U/L Serum Alcohol mg/dL Blood Type Blood Type Recheck Bld Type Recheck Status Antibody Screen Crossmatch Spec Expiration Date Critical Care Time Critical Care Time: Yes Total Critical Care Time: 35 Disposition Clinical Impression: Hemorrhage of arteriovenous fistula, Symptomatic anemia Disposition: ADMITTED IP TO THIS HOSP Condition: Serious Is patient prescribed a controlled substance at d/c from ED?: No Referrals: Nell Rosen MD [Primary Care Provider] - 1-2 days Decision to Admit Reason: Admit from EC Decision Date: 08/20/19 Decision Time: 01:55
[2019-08-20 05:28] LABS: Anisocytosis Slight; HCT 35.6 % (39.0-53.0); Hypochromasia Marked; MCH 31.6 pg (25.0-35.0); MCHC 30.7 g/dL (31.0-37.0); MCV 102.8 fL (80.0-100.0); Macrocytosis Moderate; Mean Platelet Volume 9.7; Platelet Count 172 k/uL (150-450); Poikilocytosis Slight; RBC 3.47 m/uL (4.30-5.90); RDW 16.1 % (11.5-15.5); WBC 10.2 k/uL (3.8-10.6)
[2019-08-20 06:06] LABS: Lymphocytes # (M) 0.92 k/uL (1.0-4.8); Monocytes # (M) 0.41 k/uL (0-1.0); Neutrophils # (M) 8.87 k/uL (1.3-7.7); Neutrophils % (M) 87 %; Nucleated Red Blood Cells 0 /100 WBC (0-0); Total Cells Counted 100
[2019-08-20 06:07] LABS: Crenated RBC Present
[2019-08-20 08:11] LABS: Calcium 8.6 mg/dL (8.4-10.2); Potassium 4.8 mmol/L (3.5-5.1)
[2019-08-20] MEDS ORDERED: CALCIUM ACETATE 667 MG TAB PO PRN (10:31)
--- NOTE | 2019-08-20 10:34 | P.HPIM ---
History of Present Illness This is a pleasant 69 years old male with past medical history of heart failure, atrial fibrillation, diabetes mellitus, hypertension, end-stage renal disease on hemodialysis, seizure disorder a child, legally blind secondary to diabetic retinopathy, diabetic neuropathy. He is patient of Dr. Rosen Presents because of bleeding from his left arm fistula. Patient got hemodialysis on Sunday, yesterday Sunday he was watching TV when suddenly his fistula broke up spontaneously and started bleeding profusely. Patient denies being on blood thinner, he denies trauma. No chest pain or dyspnea or dizziness. He came to the emergency room where bleeding was controlled and one suture stitches is applied to the fistula site in the left upper arm. Also is status post one unit of blood transformation Vital signs stable, afebrile. Labs showing WBC of 10.2 K, hemoglobin 11, platelets 172, sodium 135, potassium 4.8, creatinine 5.7. Lactic acid 2.3 came back to normal 1.1 In the emergency room he received Harper 5 mg orally. Review of Systems CONSTITUTIONAL: No fever, no malaise, no fatigue. HEENT: No recent visual problems or hearing problems. Denied any sore throat. CARDIOVASCULAR: No orthopnea, PND, no palpitations, no syncope. PULMONARY: No shortness of breath, no cough, no hemoptysis. GASTROINTESTINAL: No diarrhea, no nausea, no vomiting, no abdominal pain. Normoactive bowel sounds. NEUROLOGICAL: No headaches, no weakness, no numbness. HEMATOLOGICAL: Denies any bleeding or petechiae. GENITOURINARY: Denies any burning micturition, frequency, or urgency. MUSCULOSKELETAL/RHEUMATOLOGICAL: Denies any joint pain, swelling, or any muscle pain. ENDOCRINE: Denies any polyuria or polydipsia. Past Medical History Past Medical History: Atrial Fibrillation, Asthma, Heart Failure, Diabetes Mellitus, Dialysis, Eye Disorder, GERD/Reflux, Hypertension, Osteoarthritis (OA), Pneumonia, Renal Disease, Rheumatoid Arthritis (RA), Seizure Disorder Additional Past Medical History / Comment(s): ESRD with hemodialysis, mineral bone disease, chronic anemia, IDDM type II, diabetic retinopathy-"legally blind", chronic neuropathy occasionally in toes bilateral feet and left leg, bilateral lower leg edema, cellulitis bilateral lower legs, past leg/foot wounds and currently has left medial leg wounds that have scabbed over and no longer goes to [facility], paroxysmal Afib, 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 History of Any Multi-Drug Resistant Organisms: None Reported Past Surgical History: Hernia Repair, Orthopedic Surgery Additional Past Surgical History / Comment(s): Bilateral cataract surgery, insertion dialysis catheter left arm then had a procedure done to dialysis catheter at [facility]-cannot recall exactly what was done, PICC line insertion/removed, bilateral inguinal hernina repairs, colonoscopy/polypectomy, R shoulder rotator cuff repair, debridements bilateral feet. Past Anesthesia/Blood Transfusion Reactions: No Reported Reaction Additional Past Anesthesia/Blood Transfusion Reaction / Comment(s): Pt received blood in past without reaction. Past Psychological History: Anxiety, Depression Smoking Status: Former smoker Past Alcohol Use History: None Reported Past Drug Use History: None Reported - Past Family History Mother Family Medical History: Diabetes Mellitus Father Family Medical History: Cancer Additional Family Medical History / Comment(s): Metastatic cancer. Pt cannot recall primary. Medications and Allergies Home Medications Medication Instructions Recorded Confirmed Type Etanercept [Enbrel] 50 mg SQ LUU 06/12/14 08/20/19 History NIFEdipine [NIFEdipine ER] 60 mg PO DAILY 06/12/14 08/20/19 History Aspirin EC [Ecotrin Low Dose] 81 mg PO DAILY 07/31/18 08/20/19 History Gemfibrozil [Lopid] 600 mg PO BID 07/31/18 08/20/19 History Budesonide-Formot 160-4.5 Mcg 2 puff INHALATION RT-BID 02/26/19 08/20/19 History [Symbicort 160-4.5 Mcg Inhaler] Calcium Acetate [PhosLo] 2,001 mg PO TID-W/MEALS 02/26/19 08/20/19 History Magnebind 250/300mg 3 tab PO BID-W/MEALS 02/26/19 08/20/19 History Metoprolol Tartrate [Lopressor] 50 mg PO BID 02/26/19 08/20/19 History Omeprazole 40 mg PO DAILY 02/26/19 08/20/19 History Prorenal + D 1 tab PO DAILY 02/26/19 08/20/19 History Albuterol Nebulized [Ventolin 2.5 mg INHALATION RT-QID 03/17/19 07/06/19 History Nebulized] Insulin Glargine,Hum.rec.anlog 35 unit SQ HS 06/16/19 08/20/19 History [Lantus Solostar] levOCARNitine [Levocarnitine] 330 mg PO TID-W/MEALS 06/27/19 08/20/19 History ALPRAZolam [Xanax] 0.25 mg PO TID PRN 3 Days #9 tab 07/09/19 Rx Acetaminophen Tab [Tylenol] 650 mg PO Q6HR PRN tab 07/09/19 08/20/19 Rx INSULIN ASPART (NovoLOG) [NovoLOG 0 unit SQ ACHS vial 07/09/19 Rx (formulary)] Calcium Acetate [Phoslo] 667 mg PO DAILY PRN 08/20/19 08/20/19 History Furosemide [Lasix] 40 mg PO BID 08/20/19 08/20/19 History Insulin Glargine,Hum.rec.anlog See Protocol SQ HS PRN 08/20/19 08/20/19 History [Lantus Solostar] Vit C/E/Zn/Coppr/Lutein/Zeaxan 1 cap PO DAILY 08/20/19 08/20/19 History [Preservision Areds 2 Softgel] Allergies Allergy/AdvReac Type Severity Reaction Status Date / Time sulfamethoxazole AdvReac Unknown Nausea & Verified 08/20/19 08:12 [From Bactrim] Vomiting trimethoprim [From Bactrim] AdvReac Unknown Nausea & Verified 08/20/19 08:12 Vomiting Physical Exam Vitals: Vital Signs Temp Pulse Resp BP Pulse Ox 08/20/19 07:30 56 L 17 110/56 99 08/20/19 05:50 51 L 15 107/56 100 08/20/19 05:40 57 L 15 111/60 100 08/20/19 05:30 53 L 21 117/53 08/20/19 05:10 61 22 123/54 98 08/20/19 05:00 50 L 16 125/57 99 08/20/19 04:40 54 L 16 112/53 100 08/20/19 04:30 53 L 16 103/53 100 08/20/19 04:10 52 L 16 100/49 100 08/20/19 03:50 97.4 F L 50 L 20 96/69 100 08/20/19 03:20 56 L 20 98/51 100 08/20/19 03:05 53 L 18 88/50 100 08/20/19 02:50 60 16 93/50 100 08/20/19 02:30 56 L 22 94/48 100 08/20/19 02:17 97.8 F 60 20 75/58 100 08/20/19 02:05 64 20 64/44 100 08/20/19 01:47 97.6 F 67 16 75/53 100 08/20/19 01:37 97.5 F L 68 16 67/42 99 08/20/19 00:39 97.5 F L 70 22 88/53 93 L Intake and Output 08/19/19 08/20/19 08/20/19 22:59 06:59 14:59 Intake Total 310 Balance 310 Intake: Blood Product 310 Rc As-1 Unit 310 [id number] Other: Weight 109.769 kg GENERAL: The patient is alert and oriented x3, not in any acute distress. Well developed, well nourished. HEENT: Pupils are round and equally reacting to light. EOMI. No scleral icterus. No conjunctival pallor. Normocephalic, atraumatic. No pharyngeal erythema. No thyromegaly. CARDIOVASCULAR: S1 and S2 present. No murmurs, rubs, or gallops. PULMONARY: Chest is clear to auscultation, no wheezing or crackles. ABDOMEN: Soft, nontender, nondistended, normoactive bowel sounds. No palpable organomegaly. MUSCULOSKELETAL: No joint swelling or deformity. -EXTREMITIES: No cyanosis, clubbing, or pedal edema. Left arm fistula with positive bruit, 1 stitch suture is in a Place. Right leg with cast NEUROLOGICAL: Gross neurological examination did not reveal any focal deficits. SKIN: No rashes. No petechiae Results CBC & Chem 7: 08/20/19 05:00 08/20/19 07:05 Labs: Abnormal Lab Results - Last 24 Hours (Table) 08/20/19 08/20/19 08/20/19 Range/Units 00:45 00:45 00:45 WBC 11.0 H (3.8-10.6) k/uL RBC 3.40 L (4.30-5.90) m/uL Hgb 11.0 L (13.0-17.5) gm/dL Hct 35.8 L (39.0-53.0) % MCV 105.2 H (80.0-100.0) fL MCHC 30.6 L (31.0-37.0) g/dL RDW 15.9 H (11.5-15.5) % Neutrophils # 8.2 H (1.3-7.7) k/uL Neutrophils # (Manual) (1.3-7.7) k/uL Lymphocytes # (Manual) (1.0-4.8) k/uL Sodium 136 L (137-145) mmol/L Chloride 92 L (98-107) mmol/L BUN 36 H (9-20) mg/dL Creatinine 5.53 H (0.66-1.25) mg/dL Glucose 296 H (74-99) mg/dL Plasma Lactic Acid John (0.7-2.0) mmol/L AST 16 L (17-59) U/L Crossmatch See Detail 08/20/19 08/20/19 08/20/19 Range/Units 00:45 05:00 05:00 WBC (3.8-10.6) k/uL RBC 3.47 L (4.30-5.90) m/uL Hgb 11.0 L (13.0-17.5) gm/dL Hct 35.6 L (39.0-53.0) % MCV 102.8 H (80.0-100.0) fL MCHC 30.7 L (31.0-37.0) g/dL RDW 16.1 H (11.5-15.5) % Neutrophils # (1.3-7.7) k/uL Neutrophils # (Manual) 8.87 H (1.3-7.7) k/uL Lymphocytes # (Manual) 0.92 L (1.0-4.8) k/uL Sodium (137-145) mmol/L Chloride (98-107) mmol/L BUN (9-20) mg/dL Creatinine (0.66-1.25) mg/dL Glucose (74-99) mg/dL Plasma Lactic Acid John 4.8 H* 2.3 H* (0.7-2.0) mmol/L AST (17-59) U/L Crossmatch 08/20/19 Range/Units 07:05 WBC (3.8-10.6) k/uL RBC (4.30-5.90) m/uL Hgb (13.0-17.5) gm/dL Hct (39.0-53.0) % MCV (80.0-100.0) fL MCHC (31.0-37.0) g/dL RDW (11.5-15.5) % Neutrophils # (1.3-7.7) k/uL Neutrophils # (Manual) (1.3-7.7) k/uL Lymphocytes # (Manual) (1.0-4.8) k/uL Sodium 135 L (137-145) mmol/L Chloride 94 L (98-107) mmol/L BUN 39 H (9-20) mg/dL Creatinine 5.76 H (0.66-1.25) mg/dL Glucose 274 H (74-99) mg/dL Plasma Lactic Acid John (0.7-2.0) mmol/L AST (17-59) U/L Crossmatch Assessment and Plan Assessment: Spontaneous bleeding from left arm fistula Acute blood loss anemia status post one unit of blood transfusion Limited lactic acid, came back to normal Diabetes mellitus Hypertension End-stage renal disease on hemodialysis Right foot wound, status post cast Chronic heart failure Atrial fibrillation Seizure disorder at childhood Legally blind secondary to diabetic retinopathy Diabetic neuropathy Plan: This is a pleasant 69 years old male who presents with bleeding fistula, status post bleeds control and suturing of the fistula. Nephrology consult. Continue with hemodialysis. Monitor the patient closely. Restart aspirin tomorrow. Consult with vascular surgery Labs and medication were reviewed.. Continue same treatment. Continue with symptomatic treatment. Resume home medication. Monitor lytes and vitals. DVT and GI prophylaxis. Further recommendations of the clinical course of the patient DVT prophylaxis: Subcutaneous heparin GI Prophylaxis: Pepcid PT/OT: Pending Prognosis is guarded
--- NOTE | 2019-08-20 14:33 | P.GSCN ---
History of Present Illness Consult date: 08/20/19 History of present illness: Patient is a 69-year-old male with a history of end-stage renal disease on dialysis from a left upper extremity fistula. He also has a history of heart failure, A. fib fibrillation, diabetes, hypertension, seizure disorder, diabetic retinopathy, diabetic neuropathy and bilateral lower extremity wounds. He presented to the ER yesterday with bleeding of his left upper extremity fistula. Given the amount of bleeding a suture was placed and the bleeding was controlled. He did receive 1 unit of blood. At this time he denies any chest pain, shortness of breath, any further bleeding. He states that on occasion they are having to hold his fistula longer after decannulation but no mentions of the fistula nonfunctioning. He has seen many physicians in the past and has decided not to see many of them for numerous reasons according to himself and his . He has not had any surveillance or monitoring of this fistula for about a year Past Medical History Past Medical History: Atrial Fibrillation, Asthma, Heart Failure, Diabetes Mellitus, Dialysis, Eye Disorder, GERD/Reflux, Hypertension, Osteoarthritis (OA), Pneumonia, Renal Disease, Rheumatoid Arthritis (RA), Seizure Disorder Additional Past Medical History / Comment(s): ESRD with hemodialysis, mineral bone disease, chronic anemia, IDDM type II, diabetic retinopathy-"legally blind", chronic neuropathy occasionally in toes bilateral feet and left leg, bilateral lower leg edema, cellulitis bilateral lower legs, past leg/foot wounds and currently has left medial leg wounds that have scabbed over and no longer goes to [facility], paroxysmal Afib, 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 History of Any Multi-Drug Resistant Organisms: None Reported Past Surgical History: Hernia Repair, Orthopedic Surgery Additional Past Surgical History / Comment(s): Bilateral cataract surgery, insertion dialysis catheter left arm then had a procedure done to dialysis catheter at [facility]-cannot recall exactly what was done, PICC line insertion/removed, bilateral inguinal hernina repairs, colonoscopy/polypectomy, R shoulder rotator cuff repair, debridements bilateral feet. Past Anesthesia/Blood Transfusion Reactions: No Reported Reaction Additional Past Anesthesia/Blood Transfusion Reaction / Comm: Pt received blood in past without reaction. Smoking Status: Former smoker - Past Family History Mother Family Medical History: Diabetes Mellitus Father Family Medical History: Cancer Additional Family Medical History / Comment(s): Metastatic cancer. Pt cannot recall primary. Medications and Allergies Home Medications Medication Instructions Recorded Confirmed Type Etanercept [Enbrel] 50 mg SQ LUU 06/12/14 08/20/19 History NIFEdipine [NIFEdipine ER] 60 mg PO DAILY 06/12/14 08/20/19 History Aspirin EC [Ecotrin Low Dose] 81 mg PO DAILY 07/31/18 08/20/19 History Gemfibrozil [Lopid] 600 mg PO BID 07/31/18 08/20/19 History Budesonide-Formot 160-4.5 Mcg 2 puff INHALATION RT-BID 02/26/19 08/20/19 History [Symbicort 160-4.5 Mcg Inhaler] Calcium Acetate [PhosLo] 2,001 mg PO TID-W/MEALS 02/26/19 08/20/19 History Magnebind 250/300mg 3 tab PO BID-W/MEALS 02/26/19 08/20/19 History Metoprolol Tartrate [Lopressor] 50 mg PO BID 02/26/19 08/20/19 History Omeprazole 40 mg PO DAILY 02/26/19 08/20/19 History Prorenal + D 1 tab PO DAILY 02/26/19 08/20/19 History Albuterol Nebulized [Ventolin 2.5 mg INHALATION RT-TID 03/17/19 08/20/19 History Nebulized] Insulin Glargine,Hum.rec.anlog 35 unit SQ HS 06/16/19 08/20/19 History [Lantus Solostar] levOCARNitine [Levocarnitine] 330 mg PO TID-W/MEALS 06/27/19 08/20/19 History ALPRAZolam [Xanax] 0.25 mg PO TID PRN 3 Days #9 tab 07/09/19 08/20/19 Rx Acetaminophen Tab [Tylenol] 650 mg PO Q6HR PRN tab 07/09/19 08/20/19 Rx Calcium Acetate [Phoslo] 667 mg PO DAILY PRN 08/20/19 08/20/19 History Furosemide [Lasix] 40 mg PO BID 08/20/19 08/20/19 History Insulin Glargine,Hum.rec.anlog See Protocol SQ HS PRN 08/20/19 08/20/19 History [Lantus Solostar] Insulin Lispro [humaLOG Kwikpen] See Protocol SQ AC-TID PRN 08/20/19 08/20/19 History Vit C/E/Zn/Coppr/Lutein/Zeaxan 1 cap PO DAILY 08/20/19 08/20/19 History [Preservision Areds 2 Softgel] Allergies Allergy/AdvReac Type Severity Reaction Status Date / Time sulfamethoxazole AdvReac Unknown Nausea & Verified 08/20/19 08:12 [From Bactrim] Vomiting trimethoprim [From Bactrim] AdvReac Unknown Nausea & Verified 08/20/19 08:12 Vomiting Surgical - Exam Vital Signs Temp Pulse Resp BP Pulse Ox 97.5 F L 70 22 88/53 93 L 08/20/19 00:39 08/20/19 00:39 08/20/19 00:39 08/20/19 00:39 08/20/19 00:39 Gen. is a pleasant cooperative male, resting comfortably. HEENT is normocephalic, atraumatic, excellent motion intact. Heart irregular in rate and rhythm. Lungs are clear bilaterally. Abdomen is soft. Left upper extremity fistula with palpable thrill. There is somewhat of a pulsatile area distally to the suture placed. Palpable radial pulse. No ulcerations. Skin intact. Bilateral lower extremities in cast and Unna boot. Normal mood and flattened affect. Cranial nerves II through XII grossly intact. Results - Labs 08/20/19 05:00 08/20/19 07:05 Abnormal Lab Results - Last 24 Hours (Table) 08/20/19 08/20/19 08/20/19 Range/Units 00:45 00:45 00:45 WBC 11.0 H (3.8-10.6) k/uL RBC 3.40 L (4.30-5.90) m/uL Hgb 11.0 L (13.0-17.5) gm/dL Hct 35.8 L (39.0-53.0) % MCV 105.2 H (80.0-100.0) fL MCHC 30.6 L (31.0-37.0) g/dL RDW 15.9 H (11.5-15.5) % Neutrophils # 8.2 H (1.3-7.7) k/uL Neutrophils # (Manual) (1.3-7.7) k/uL Lymphocytes # (Manual) (1.0-4.8) k/uL Sodium 136 L (137-145) mmol/L Chloride 92 L (98-107) mmol/L BUN 36 H (9-20) mg/dL Creatinine 5.53 H (0.66-1.25) mg/dL Glucose 296 H (74-99) mg/dL Plasma Lactic Acid John (0.7-2.0) mmol/L AST 16 L (17-59) U/L Crossmatch See Detail 08/20/19 08/20/19 08/20/19 Range/Units 00:45 05:00 05:00 WBC (3.8-10.6) k/uL RBC 3.47 L (4.30-5.90) m/uL Hgb 11.0 L (13.0-17.5) gm/dL Hct 35.6 L (39.0-53.0) % MCV 102.8 H (80.0-100.0) fL MCHC 30.7 L (31.0-37.0) g/dL RDW 16.1 H (11.5-15.5) % Neutrophils # (1.3-7.7) k/uL Neutrophils # (Manual) 8.87 H (1.3-7.7) k/uL Lymphocytes # (Manual) 0.92 L (1.0-4.8) k/uL Sodium (137-145) mmol/L Chloride (98-107) mmol/L BUN (9-20) mg/dL Creatinine (0.66-1.25) mg/dL Glucose (74-99) mg/dL Plasma Lactic Acid John 4.8 H* 2.3 H* (0.7-2.0) mmol/L AST (17-59) U/L Crossmatch 08/20/19 Range/Units 07:05 WBC (3.8-10.6) k/uL RBC (4.30-5.90) m/uL Hgb (13.0-17.5) gm/dL Hct (39.0-53.0) % MCV (80.0-100.0) fL MCHC (31.0-37.0) g/dL RDW (11.5-15.5) % Neutrophils # (1.3-7.7) k/uL Neutrophils # (Manual) (1.3-7.7) k/uL Lymphocytes # (Manual) (1.0-4.8) k/uL Sodium 135 L (137-145) mmol/L Chloride 94 L (98-107) mmol/L BUN 39 H (9-20) mg/dL Creatinine 5.76 H (0.66-1.25) mg/dL Glucose 274 H (74-99) mg/dL Plasma Lactic Acid John (0.7-2.0) mmol/L AST (17-59) U/L Crossmatch Diabetes panel 08/20/19 08/20/19 Range/Units 00:45 07:05 Sodium 136 L 135 L (137-145) mmol/L Potassium 4.8 4.8 (3.5-5.1) mmol/L Chloride 92 L 94 L (98-107) mmol/L Carbon Dioxide 29 30 (22-30) mmol/L BUN 36 H 39 H (9-20) mg/dL Creatinine 5.53 H 5.76 H (0.66-1.25) mg/dL Glucose 296 H 274 H (74-99) mg/dL Calcium 8.9 8.6 (8.4-10.2) mg/dL AST 16 L (17-59) U/L ALT 10 (4-49) U/L Alkaline Phosphatase 122 (38-126) U/L Total Protein 7.3 (6.3-8.2) g/dL Albumin 3.5 (3.5-5.0) g/dL Calcium panel 08/20/19 08/20/19 Range/Units 00:45 07:05 Calcium 8.9 8.6 (8.4-10.2) mg/dL Albumin 3.5 (3.5-5.0) g/dL Pituitary panel 08/20/19 08/20/19 Range/Units 00:45 07:05 Sodium 136 L 135 L (137-145) mmol/L Potassium 4.8 4.8 (3.5-5.1) mmol/L Chloride 92 L 94 L (98-107) mmol/L Carbon Dioxide 29 30 (22-30) mmol/L BUN 36 H 39 H (9-20) mg/dL Creatinine 5.53 H 5.76 H (0.66-1.25) mg/dL Glucose 296 H 274 H (74-99) mg/dL Calcium 8.9 8.6 (8.4-10.2) mg/dL Adrenal panel 08/20/19 08/20/19 Range/Units 00:45 07:05 Sodium 136 L 135 L (137-145) mmol/L Potassium 4.8 4.8 (3.5-5.1) mmol/L Chloride 92 L 94 L (98-107) mmol/L Carbon Dioxide 29 30 (22-30) mmol/L BUN 36 H 39 H (9-20) mg/dL Creatinine 5.53 H 5.76 H (0.66-1.25) mg/dL Glucose 296 H 274 H (74-99) mg/dL Calcium 8.9 8.6 (8.4-10.2) mg/dL Total Bilirubin 0.5 (0.2-1.3) mg/dL AST 16 L (17-59) U/L ALT 10 (4-49) U/L Alkaline Phosphatase 122 (38-126) U/L Total Protein 7.3 (6.3-8.2) g/dL Albumin 3.5 (3.5-5.0) g/dL Assessment and Plan Assessment: #1 bleeding left upper extremity AV fistula, now controlled #2 end-stage renal disease #3 neuropathy Medical noncompliance Plan: At this point no further inpatient interventions required. Functional fistula. He will require a left upper extremity ultrasound to evaluate for any areas of stenosis. We will follow-up with him in the office as an outpatient. This is discussed. He seemingly understands. This was conveyed also to his over the phone.
[2019-08-20] MEDS: FUROSEMIDE 40 MG TAB PO SCH (15:49)
[2019-08-20] MEDS: CALCIUM CARB-MAG CARB-FOLIC 1 EACH TAB PO SCH (17:18)
--- NOTE | 2019-08-20 19:28 | CONS ---
CONSULTATION REASON FOR CONSULT: End-stage renal disease. HISTORY OF PRESENT ILLNESS: Patient is a 69-year-old male with end-stage renal disease, on hemodialysis on a Sunday, Sunday, Sunday schedule. He was admitted to the hospital with complaints of excessive bleeding from his AV fistula site yesterday evening. The patient had his regular treatment on Sunday with no events of bleeding. However, yesterday, which was a day later after his dialysis, he noticed spontaneous bleeding. He presented to the ER and a suture was placed and vascular surgeries placed on consult. Patient's hemoglobin was 11.0 g/dL today. He did get 1 unit packed RBCs given the significant amount of blood loss. The patient is currently not on any anticoagulation. He was previously on Eliquis, which is now discontinued. There are no fever or chills. No rashes or sores noted at the site of his AV fistula. PAST MEDICAL HISTORY: End-stage renal disease, anemia of chronic disease, CKD mineral bone disorder, hypertension, atrial fibrillation, type 2 diabetes, diabetic retinopathy, neuropathy, history of rheumatoid arthritis, history of chronic cellulitis lower extremities with chronic bilateral lower extremity edema following at the wound clinic, history of endocarditis 2013 and sepsis, history of seizures. PAST SURGICAL HISTORY: Bilateral cataract surgery, dialysis catheter placement, AV fistula, eye surgeries, PICC line placement. SOCIAL HISTORY: Patient is a former smoker. No history of drug abuse or alcohol abuse. MEDICATIONS: Medications prior to admission included Amaryl, nifedipine, aspirin, Lopid, MagneBind, PhosLo, omeprazole, Lopressor, Xanax, levocarnitine, insulin, PhosLo and Lasix. ALLERGIES: INCLUDE BACTRIM. PHYSICAL EXAMINATION: Patient is comfortable, awake, not in any acute distress. Blood pressure was 108 over 53, heart rate 66 per minute. He is afebrile. Examination of the heart S1, S2. Examination of the lungs, bilateral breath sounds are heard. Abdomen is soft, nontender. Examination lower extremities shows chronic skin changes, chronic edema. Some drainage noted. Both lower extremities are currently wrapped. There is a suture noted at the site of his AV fistula on his left arm. No bleeding is noted from it. LAB: Show sodium 135, potassium 4.8, chloride 94, BUN 39, creatinine 5.76, serum lactic acid 2.3, hemoglobin 11.0 g/dL. ASSESSMENT: 1. End-stage renal disease, on hemodialysis on a Sunday, Sunday, Sunday schedule. We will hold off on dialysis today and arrange for dialysis tomorrow once patient has been assessed by vascular surgery. 2. Bleeding from AV graft. Awaiting vascular surgery input. 3. Type 2 diabetes. 4. Chronic kidney disease mineral bone disorder. 5. History of atrial fibrillation, currently not on any anticoagulation. PLAN: Hemodialysis in a.m. after evaluation by vascular surgery. MMODL / IJN: [id number] /
[2019-08-20] MEDS: SYMBICORT 160-4.5 MCG INHALER INHALATION SCH (20:31)
[2019-08-20 20:34] LABS: Glucose,Whole Blood 379 mg/dL (75-99)
[2019-08-20] MEDS: METOPROLOL TARTRATE 50 MG TAB PO SCH (22:00)
[2019-08-20] MEDS: INSULIN ASPART (NovoLOG) 100 UNIT/ML VIAL SQ SCH (22:00)
[2019-08-20] MEDS: INSULIN DETEMIR (LEVEMIR) 100 UNIT/ML SYR SQ SCH (22:01)
[2019-08-21] MEDS: HYDROmorphone 0.5 MG/0.5 ML SYRINGE IVP PRN ×2 (00:58→02:50)
[2019-08-21 01:49] LABS: Glucose,Whole Blood 239 mg/dL (75-99)
[2019-08-21] MEDS ORDERED: ONDANSETRON 4 MG/2 ML VIAL IVP PRN (03:49)
[2019-08-21] MEDS: ACETAMINOPHEN TAB 325 MG TAB PO PRN ×3 (05:24→12:57)
[2019-08-21 07:05] LABS: Glucose,Whole Blood 154 mg/dL (75-99)
[2019-08-21] MEDS: SYMBICORT 160-4.5 MCG INHALER INHALATION SCH ×2 (07:13→18:41)
[2019-08-21] MEDS: ASPIRIN 81 MG PO SCH (08:07)
[2019-08-21] MEDS: FUROSEMIDE 40 MG TAB PO SCH ×2 (08:08→14:54)
[2019-08-21] MEDS: INSULIN ASPART (NovoLOG) 100 UNIT/ML VIAL SQ SCH ×4 (08:09→20:09)
[2019-08-21] MEDS: FENOFIBRATE 160 MG TAB PO SCH (08:09)
[2019-08-21] MEDS: CALCIUM CARB-MAG CARB-FOLIC 1 EACH TAB PO SCH ×2 (08:09→17:38)
[2019-08-21] MEDS: METOPROLOL TARTRATE 50 MG TAB PO SCH ×2 (08:09→20:09)
--- NOTE | 2019-08-21 08:30 | P.PN ---
Subjective This is a pleasant 69 years old male with past medical history of heart failure, atrial fibrillation, diabetes mellitus, hypertension, end-stage renal disease on hemodialysis, seizure disorder a child, legally blind secondary to diabetic retinopathy, diabetic neuropathy. He is patient of Dr. Rosen Presents because of bleeding from his left arm fistula. Patient got hemodialysis on Sunday, yesterday Sunday he was watching TV when suddenly his fistula broke up spontaneously and started bleeding profusely. Patient denies being on blood th inner, he denies trauma. No chest pain or dyspnea or dizziness. He came to the emergency room where bleeding was controlled and one suture stitches is applied to the fistula site in the left upper arm. Also is status post one unit of blood transformation Vital signs stable, afebrile. Labs showing WBC of 10.2 K, hemoglobin 11, platelets 172, sodium 135, potassium 4.8, creatinine 5.7. Lactic acid 2.3 came back to normal 1.1 In the emergency room he received [place] 5 mg orally. 08/21/2019 Patient is clinically stable, no complaints. No more bleeding. Once this clean and dry with stitch is in place. Hemodynamically stable. She will controlled. Vascular surgery evaluated the patient and recommended an ultrasound of the left upper extremity, for possible and new fistula Objective - Vital Signs Vital signs: Vital Signs Temp 97.7 F 08/21/19 04:30 Pulse 68 08/21/19 04:30 Resp 16 08/21/19 04:30 BP 97/57 08/21/19 04:30 Pulse Ox 100 08/21/19 04:30 Intake & Output 08/20/19 08/21/19 08/21/19 18:59 06:59 18:59 Intake Total 540 300 Balance 540 300 Weight 109.769 kg Intake: Oral 540 300 Other: Voiding Method Urinal Urinal # Voids 2 1 # Bowel Movements 1 - Exam GENERAL: The patient is alert and oriented x3, not in any acute distress. Well developed, well nourished. HEENT: Pupils are round and equally reacting to light. EOMI. No scleral icterus. No conjunctival pallor. Normocephalic, atraumatic. No pharyngeal erythema. No thyromegaly. CARDIOVASCULAR: S1 and S2 present. No murmurs, rubs, or gallops. PULMONARY: Chest is clear to auscultation, no wheezing or crackles. ABDOMEN: Soft, nontender, nondistended, normoactive bowel sounds. No palpable organomegaly. MUSCULOSKELETAL: No joint swelling or deformity. -EXTREMITIES: No cyanosis, clubbing, or pedal edema. Left arm fistula with positive bruit, 1 stitch suture is in a Place. Right leg with cast NEUROLOGICAL: Gross neurological examination did not reveal any focal deficits. SKIN: No rashes. No petechiae - Labs CBC & Chem 7: 08/20/19 05:00 08/20/19 07:05 Labs: Abnormal Lab Results - Last 24 Hours (Table) 08/20/19 08/21/19 08/21/19 Range/Units 20:33 01:48 07:04 POC Glucose (mg/dL) 379 H 239 H 154 H (75-99) mg/dL Assessment and Plan Assessment: Spontaneous bleeding from left arm fistula Acute blood loss anemia status post one unit of blood transfusion Limited lactic acid, came back to normal Diabetes mellitus Hypertension End-stage renal disease on hemodialysis Right foot wound, status post cast Chronic heart failure Atrial fibrillation Seizure disorder at childhood Legally blind secondary to diabetic retinopathy Diabetic neuropathy Plan: This is a pleasant 69 years old male who presents with bleeding fistula, status post bleeds control and suturing of the fistula. Nephrology consult. Continue with hemodialysis. Monitor the patient closely. Restart aspirin .vascular surgery for possible another fistula placement Labs and medication were reviewed.. Continue same treatment. Continue with symptomatic treatment. Resume home medication. Monitor lytes and vitals. DVT and GI prophylaxis. Further recommendations of the clinical course of the patient DVT prophylaxis: Subcutaneous heparin GI Prophylaxis: Pepcid
[2019-08-21 11:28] LABS: Glucose,Whole Blood 161 mg/dL (75-99)
--- NOTE | 2019-08-21 11:50 | P.CONS ---
History of Present Illness - Reason for Consult Consult date: 08/21/19 Wound care - History of Present Illness This is a 69-year-old pleasant gentleman known to the wound care center with a nonhealing ulcerations to the right lower extremity lateral aspect, right foot fifth metatarsal plantar aspect, right foot dorsal aspect, left foot second third and fourth digits dorsal aspect, left patella, left lower extremity anterior aspect. Patient had a total contact cast to the right lower extremity, and a 3 layer compression wrap to the left lower extremity. Patient has history of end-stage kidney disease on dialysis, diabetes, atrial fibrillation, congestive heart failure, venous insufficiency, GERD, hypertension. Patient was found to have positive acute ostium mellitus via bone scan on 08/19/2019. He was supposed to come to the wound care center on the however he was inpatient at that time. Patient will require a referral to infectious disease for antibiotics. Review of Systems Review Of Systems: Constitutional: No fever, no chills, no night sweats. No weight change. No weakness, fatigue or lethargy. No daytime sleepiness. Integumentary:reports wounds, no lesions. No rash or pruritus. No unusual bruising. No change in hair or nails. Past Medical History Past Medical History: Atrial Fibrillation, Asthma, Heart Failure, Diabetes Mellitus, Dialysis, Eye Disorder, GERD/Reflux, Hypertension, Osteoarthritis (OA), Pneumonia, Renal Disease, Rheumatoid Arthritis (RA), Seizure Disorder Additional Past Medical History / Comment(s): ESRD with hemodialysis, mineral bone disease, chronic anemia, IDDM type II, diabetic retinopathy-"legally blind", chronic neuropathy occasionally in toes bilateral feet and left leg, bilateral lower leg edema, cellulitis bilateral lower legs, past leg/foot wounds and currently has left medial leg wounds that have scabbed over and no longer goes to [facility], paroxysmal Afib, 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 History of Any Multi-Drug Resistant Organisms: None Reported Past Surgical History: Hernia Repair, Orthopedic Surgery Additional Past Surgical History / Comment(s): Bilateral cataract surgery, insertion dialysis catheter left arm then had a procedure done to dialysis catheter at [facility]-cannot recall exactly what was done, PICC line insertion/removed, bilateral inguinal hernina repairs, colonoscopy/polypectomy, R shoulder rotator cuff repair, debridements bilateral feet. Past Anesthesia/Blood Transfusion Reactions: No Reported Reaction Additional Past Anesthesia/Blood Transfusion Reaction / Comm: Pt received blood in past without reaction. Smoking Status: Former smoker - Past Family History Mother Family Medical History: Diabetes Mellitus Father Family Medical History: Cancer Additional Family Medical History / Comment(s): Metastatic cancer. Pt cannot recall primary. Medications and Allergies Home Medications Medication Instructions Recorded Confirmed Type Etanercept [Enbrel] 50 mg SQ LUU 06/12/14 08/20/19 History NIFEdipine [NIFEdipine ER] 60 mg PO DAILY 06/12/14 08/20/19 History Aspirin EC [Ecotrin Low Dose] 81 mg PO DAILY 07/31/18 08/20/19 History Gemfibrozil [Lopid] 600 mg PO BID 07/31/18 08/20/19 History Budesonide-Formot 160-4.5 Mcg 2 puff INHALATION RT-BID 02/26/19 08/20/19 History [Symbicort 160-4.5 Mcg Inhaler] Calcium Acetate [PhosLo] 2,001 mg PO TID-W/MEALS 02/26/19 08/20/19 History Magnebind 250/300mg 3 tab PO BID-W/MEALS 02/26/19 08/20/19 History Metoprolol Tartrate [Lopressor] 50 mg PO BID 02/26/19 08/20/19 History Omeprazole 40 mg PO DAILY 02/26/19 08/20/19 History Prorenal + D 1 tab PO DAILY 02/26/19 08/20/19 History Albuterol Nebulized [Ventolin 2.5 mg INHALATION RT-TID 03/17/19 08/20/19 History Nebulized] Insulin Glargine,Hum.rec.anlog 35 unit SQ HS 06/16/19 08/20/19 History [Lantus Solostar] levOCARNitine [Levocarnitine] 330 mg PO TID-W/MEALS 06/27/19 08/20/19 History ALPRAZolam [Xanax] 0.25 mg PO TID PRN 3 Days #9 tab 07/09/19 08/20/19 Rx Acetaminophen Tab [Tylenol] 650 mg PO Q6HR PRN tab 07/09/19 08/20/19 Rx Calcium Acetate [Phoslo] 667 mg PO DAILY PRN 08/20/19 08/20/19 History Furosemide [Lasix] 40 mg PO BID 08/20/19 08/20/19 History Insulin Glargine,Hum.rec.anlog See Protocol SQ HS PRN 08/20/19 08/20/19 History [Lantus Solostar] Insulin Lispro [humaLOG Kwikpen] See Protocol SQ AC-TID PRN 08/20/19 08/20/19 History Vit C/E/Zn/Coppr/Lutein/Zeaxan 1 cap PO DAILY 08/20/19 08/20/19 History [Preservision Areds 2 Softgel] Allergies Allergy/AdvReac Type Severity Reaction Status Date / Time sulfamethoxazole AdvReac Unknown Nausea & Verified 08/20/19 08:12 [From Bactrim] Vomiting trimethoprim [From Bactrim] AdvReac Unknown Nausea & Verified 08/20/19 08:12 Vomiting Physical Exam Vitals: Vital Signs Temp Pulse Resp BP Pulse Ox 08/21/19 04:30 97.7 F 68 16 97/57 100 08/21/19 00:10 73 18 08/20/19 20:13 97.1 F L 73 18 125/58 100 Intake and Output 08/20/19 08/21/19 08/21/19 22:59 06:59 14:59 Intake Total 300 Balance 300 Intake: Oral 300 Other: Voiding Method Urinal Urinal # Voids 0 1 # Bowel Movements 1 Physical exam: General Appearance: Alert, cooperative, no distress, appears stated age. Skin: Right foot fifth metatarsal plantar aspect ulceration has bone exposure with significant amount of slough no gangrene noted no tunneling or undermining, no granulation seen within the wound bed, right dorsal foot ulceration with fatty layer exposure significant amount of slough noted no tunneling or undermining positive moderate serosanguineous drainage small amount of granulation seen within the wound bed, right lower extremity lateral aspect ulceration Limited to skin breakdown, granulation seen throughout the wound bed minimal slough small amount of serous drainage noted no tunneling or und ermining, left medial calcaneus ulceration is healed, left patella ulceration is new resulting from trauma Limited to skin breakdown granulation seen within the wound bed, left lower extremity ulceration anterior aspect Limited to skin breakdown Mindy is seen throughout the wound bed, left foot second third and fourth digits dorsal aspect, minimal granulation seen within wound bed significant amount of slough noted moderate amount of serous drainage noted all other Skin color, texture, tugor normal, no rashes or lesions. Neurologic: Alert oriented x3 Results CBC & Chem 7: 08/20/19 05:00 08/20/19 07:05 Labs: Abnormal Lab Results - Last 24 Hours (Table) 08/20/19 08/21/19 08/21/19 Range/Units 20:33 01:48 07:04 POC Glucose (mg/dL) 379 H 239 H 154 H (75-99) mg/dL 08/21/19 Range/Units 11:27 POC Glucose (mg/dL) 161 H (75-99) mg/dL Assessment and Plan (1) Osteomyelitis of foot, right, acute Current Visit: Yes Status: Acute Code(s): M86.171 - OTHER ACUTE OSTEOMYELITI S, RIGHT ANKLE AND FOOT SNOMED Code(s): 0073222233906503 (2) Diabetic foot ulcer associated with type 2 diabetes mellitus Current Visit: No Status: Acute Code(s): E11.621 - TYPE 2 DIABETES MELLITUS WITH FOOT ULCER SNOMED Code(s): 048983612 (3) Diabetic ulcer of left foot associated with diabetes mellitus due to underlying condition, with fat layer exposed Current Visit: No Status: Acute Code(s): E08.621 - DIABETES MELLITUS DUE TO UNDERLYING CONDITION W FOOT ULCER; L97.522 - NON-PRS CHRONIC ULCER OTH PRT LEFT FOOT W FAT LAYER EXPOSED SNOMED Code(s): 621585617 (4) Ulcer of right lower extremity with fat layer exposed Current Visit: No Status: Acute Code(s): L97.912 - NON-PRS CHR ULC UNSP PRT OF R LOW LEG W FAT LAYER EXPOSED SNOMED Code(s): 14622265 Plan: Referral to infectious disease. Positive osteomyelitis per bone scan 08/19/2019. We will hold off on a total contact cast to the right lower extremity at this time. Absorptive silver to the ulcerations to the right lower extremity changing Sunday. Patient will continue with his wound care treatments upon discharge. Left lower extremity we will continue with absorptive silver and a 3 layer compression wrap. The dressing will not be changed for 1 week until seen in the wound care center. Thank you kindly for the consultation any questions please contact the wound care center DNP note has been reviewed and discussed with Dr. Messina and the impression and plan of care has been directed as dictated.
--- NOTE | 2019-08-21 15:47 | PN ---
PROGRESS NOTE Patient is seen for followup for end-stage renal disease. He was admitted with history of bleeding from his AV fistula. A suture was placed in the ER. There has not been any further bleeding. We did not dialyze the patient yesterday as he was not evaluated by Vascular Surgery. Patient was seen by Dr. Arguelles and we will proceed with hemodialysis today. This morning patient was concerned about getting a treatment. However, I advised him that it is better that he is treated in the hospital rather than have another episode of bleeding as outpatient. He will need further evaluation of the AV fistula. Hopefully, it can be done as inpatient as patient does not follow up as outpatient. PHYSICAL EXAMINATION: This morning, blood pressure was 97/57, heart rate 68 per minute, he is afebrile. Examination of the heart S1, S2. Examination of the lungs, decreased breath sounds at bases. Abdomen is soft, nontender. Examination of lower extremities shows bilateral lower extremity wounds and drainage. Bilateral legs are wrapped. LAB: 1. Show sodium 135, potassium 4.8 yesterday, BUN 39, serum creatinine 5.76. ASSESSMENT: 1. End-stage renal disease, on hemodialysis Sunday, Sunday, Sunday schedule. Patient was not dialyzed yesterday. We will dialyze him today with 17-gauge needles. 2. Bleeding from AV fistula, status post evaluation by Vascular Surgery. Patient will need further evaluation of the AV fistula. I have strongly encouraged him to follow up as outpatient as previously has not followed up. He is to see Dr. Bustos previously. 3. Bilateral lower extremity wounds. going to wound clinic. 4. CKD mineral bone disorder, maintained on PhosLo. PLAN: Hemodialysis today. We will use 17-gauge needles. The patient will need further evaluation of the fistula by Vascular Surgery. MMODL / IJN: [id number] /
[2019-08-21 16:58] LABS: Glucose,Whole Blood 177 mg/dL (75-99)
[2019-08-21 19:56] LABS: Glucose,Whole Blood 185 mg/dL (75-99)
[2019-08-21] MEDS: INSULIN DETEMIR (LEVEMIR) 100 UNIT/ML SYR SQ SCH (20:58)
[2019-08-21] MEDS: HEPARIN SODIUM,PORCINE 5,000 UNIT/ML 1 ML VIAL SQ SCH (20:58)
--- NOTE | 2019-08-22 00:51 | P.CONS ---
History of Present Illness - Reason for Consult Consult date: 08/21/19 right foot osteomyelitis Requesting physician: Janie Berumen - Chief Complaint non healing wound to right foot x months - History of Present Illness Patient is a 69-year-old male with a past medical history significant for end-stage renal disease on hemodialysis in this patient who did have a chronic nonhealing wound on the plantar aspect of the right foot at the base of the fifth metatarsal head, patient is presenting to the ER at [facility] yesterday for evaluation of diaphoresis hypertension apparently the patient had did have a significant bleeding after the bandage was removed from the needlestick of the dialysis site patient subsequently has been evaluated by the ER physician and has been admitted to hospital being evaluated by vascular surgery from bleeding from his dialysis access site patient also have recent work-up done in the outpatient setting for his nonhealing wound to the plantar aspect of the right foot x-ray done on 13 August did shows evidence of osteomyelitis of the fifth metatarsal head that has been confirmed on the bone scan on 08/19/2019 I was asked to see the patient today for further recommendation regarding antibiotic therapy for his acute osteomyelitis, last culture from the site has been on June 04 which grew Pseudomonas aeruginosa the patient currently denies having any fever or any chills, patient denies having any pain to the right foot plantar wound daily because of his underlying Neuropathy and denies any foul-smelling drainage from it denies having any chest pain or shortness of breath no cough no abdominal pain no diarrhea. Review of Systems Positive point has been mentioned in HPI rest of the systems are negative Past Medical History Past Medical History: Atrial Fibrillation, Asthma, Heart Failure, Diabetes Melli tus, Dialysis, Eye Disorder, GERD/Reflux, Hypertension, Osteoarthritis (OA), Pneumonia, Renal Disease, Rheumatoid Arthritis (RA), Seizure Disorder Additional Past Medical History / Comment(s): ESRD with hemodialysis, mineral bone disease, chronic anemia, IDDM type II, diabetic retinopathy-"legally blind", chronic neuropathy occasionally in toes bilateral feet and left leg, bilateral lower leg edema, cellulitis bilateral lower legs, past leg/foot wounds and currently has left medial leg wounds that have scabbed over and no longer goes to [facility], paroxysmal Afib, 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 History of Any Multi-Drug Resistant Organisms: None Reported Past Surgical History: Hernia Repair, Orthopedic Surgery Additional Past Surgical History / Comment(s): Bilateral cataract surgery, insertion dialysis catheter left arm then had a procedure done to dialysis catheter at [facility]-cannot recall exactly what was done, PICC line insertion/removed, bilateral inguinal hernina repairs, colonoscopy/polypectomy, R shoulder rotator cuff repair, debridements bilateral feet. Past Anesthesia/Blood Transfusion Reactions: No Reported Reaction Additional Past Anesthesia/Blood Transfusion Reaction / Comm: Pt received blood in past without reaction. Smoking Status: Former smoker - Past Family History Mother Family Medical History: Diabetes Mellitus Father Family Medical History: Cancer Additional Family Medical History / Comment(s): Metastatic cancer. Pt cannot recall primary. Medications and Allergies Home Medications Medication Instructions Recorded Confirmed Type Etanercept [Enbrel] 50 mg SQ LUU 06/12/14 08/20/19 History NIFEdipine [NIFEdipine ER] 60 mg PO DAILY 06/12/14 08/20/19 History Aspirin EC [Ecotrin Low Dose] 81 mg PO DAILY 07/31/18 08/20/19 History Gemfibrozil [Lopid] 600 mg PO BID 07/31/18 08/20/19 History Budesonide-Formot 160-4.5 Mcg 2 puff INHALATION RT-BID 02/26/19 08/20/19 History [Symbicort 160-4.5 Mcg Inhaler] Calcium Acetate [PhosLo] 2,001 mg PO TID-W/MEALS 02/26/19 08/20/19 History Magnebind 250/300mg 3 tab PO BID-W/MEALS 02/26/19 08/20/19 History Metoprolol Tartrate [Lopressor] 50 mg PO BID 02/26/19 08/20/19 History Omeprazole 40 mg PO DAILY 02/26/19 08/20/19 History Prorenal + D 1 tab PO DAILY 02/26/19 08/20/19 History Albuterol Nebulized [Ventolin 2.5 mg INHALATION RT-TID 03/17/19 08/20/19 History Nebulized] Insulin Glargine,Hum.rec.anlog 35 unit SQ HS 06/16/19 08/20/19 History [Lantus Solostar] levOCARNitine [Levocarnitine] 330 mg PO TID-W/MEALS 06/27/19 08/20/19 History ALPRAZolam [Xanax] 0.25 mg PO TID PRN 3 Days #9 tab 07/09/19 08/20/19 Rx Acetaminophen Tab [Tylenol] 650 mg PO Q6HR PRN tab 07/09/19 08/20/19 Rx Calcium Acetate [Phoslo] 667 mg PO DAILY PRN 08/20/19 08/20/19 History Furosemide [Lasix] 40 mg PO BID 08/20/19 08/20/19 History Insulin Glargine,Hum.rec.anlog See Protocol SQ HS PRN 08/20/19 08/20/19 History [Lantus Solostar] Insulin Lispro [humaLOG Kwikpen] See Protocol SQ AC-TID PRN 08/20/19 08/20/19 History Vit C/E/Zn/Coppr/Lutein/Zeaxan 1 cap PO DAILY 08/20/19 08/20/19 History [Preservision Areds 2 Softgel] Allergies Allergy/AdvReac Type Severity Reaction Status Date / Time sulfamethoxazole AdvReac Unknown Nausea & Verified 08/20/19 08:12 [From Bactrim] Vomiting trimethoprim [From Bactrim] AdvReac Unknown Nausea & Verified 08/20/19 08:12 Vomiting Physical Exam Vitals: Vital Signs Temp Pulse Resp BP Pulse Ox 08/21/19 20:14 97.6 F 64 20 126/53 100 08/21/19 14:26 97.6 F 62 18 110/60 08/21/19 11:55 97.5 F L 57 L 20 86/63 100 08/21/19 04:30 97.7 F 68 16 97/57 100 Intake and Output 08/21/19 08/21/19 08/22/19 14:59 22:59 06:59 Intake Total 400 400 Output Total 500 Balance -100 400 Intake: Oral 400 400 Output: Hemodialysis 500 GENERAL DESCRIPTION: Elderly male up in the chair, no distress. No tachypnea or accessory muscle of respiration use. HEENT: Shows Pallor , no scleral icterus. Oral mucous membrane is dry. NECK: Trachea central, no thyromegaly. LUNGS: Unlabored breathing. Clear to auscultation anteriorly. No wheeze or crackle. HEART: S1, S2, regular rate and rhythm. ABDOMEN: Soft, no tenderness , guarding or rigidity EXTREMITIES: Right foot plantar aspect at the base of the fifth metatarsal head did have a wound that is probing down to the bone aerobic anaerobic culture has been obtained sKIN: No rash, no masses palpable. NEUROLOGICAL: The patient is awake, alert, oriented x3, mood and affect normal. Results CBC & Chem 7: 08/20/19 05:00 08/20/19 07:05 Labs: Abnormal Lab Results - Last 24 Hours (Table) 08/21/19 08/21/19 08/21/19 Range/Units 01:48 07:04 11:27 POC Glucose (mg/dL) 239 H 154 H 161 H (75-99) mg/dL 08/21/19 08/21/19 Range/Units 16:57 19:53 POC Glucose (mg/dL) 177 H 185 H (75-99) mg/dL Microbiology - Last 24 Hours (Table) 08/21/19 12:30 Gram Stain - Preliminary Foot - Right Wound Culture - Preliminary 08/21/19 12:30 Anaerobic Culture - Preliminary Foot - Right Assessment and Plan Assessment: -patient with a chronic nonhealing wound on the plantar aspect of the right foot at the base of the fifth toe in this patient who did have an x-ray as well as bone scan that has been suggestive of osteomyelitis last culture from the same site has been done on June 04 which grew Pseudomonas could be the same or different pathogen (1) Foot osteomyelitis, right Current Visit: Yes Status: Acute Code(s): M86.9 - OSTEOMYELITIS, UNSPECIFIED SNOMED Code(s): 0734782426721918 Plan: 1-aerobic and anaerobic wound culture has been obtained to guide antibiotic therapy 2-we will empirically add cefepime 1 g daily dose adjusted to kidney function while waiting for the culture to finalize 3-local wound care to the right foot as well as bilateral extremity wound to continue per the wound care team We will follow on clinical condition and cultures to further adjust medication if needed Thank you for this consultation we will follow the patient along with you Time with Patient: Greater than 30
[2019-08-22 07:00] LABS: Glucose,Whole Blood 154 mg/dL (75-99)
[2019-08-22] MEDS: INSULIN ASPART (NovoLOG) 100 UNIT/ML VIAL SQ SCH ×4 (07:57→20:37)
[2019-08-22] MEDS: SYMBICORT 160-4.5 MCG INHALER INHALATION SCH ×2 (09:14→19:44)
[2019-08-22] MEDS: CEFEPIME 1 GM in SODIUM CHLORIDE 0.9% 50 ML IVPB SCH (11:29)
[2019-08-22] MEDS: FENOFIBRATE 160 MG TAB PO SCH (11:33)
[2019-08-22] MEDS: CALCIUM CARB-MAG CARB-FOLIC 1 EACH TAB PO SCH ×2 (11:33→17:40)
[2019-08-22] MEDS: ASPIRIN 81 MG PO SCH (11:33)
[2019-08-22] MEDS: FUROSEMIDE 40 MG TAB PO SCH ×2 (11:34→16:04)
[2019-08-22] MEDS: METOPROLOL TARTRATE 50 MG TAB PO SCH ×2 (11:34→20:38)
[2019-08-22] MEDS: HEPARIN SODIUM,PORCINE 5,000 UNIT/ML 1 ML VIAL SQ SCH ×2 (11:34→20:37)
[2019-08-22 11:40] LABS: Glucose,Whole Blood 121 mg/dL (75-99)
--- NOTE | 2019-08-22 12:50 | P.PN ---
Subjective This is a pleasant 69 years old male with past medical history of heart failure, atrial fibrillation, diabetes mellitus, hypertension, end-stage renal disease on hemodialysis, seizure disorder a child, legally blind secondary to diabetic retinopathy, diabetic neuropathy. He is patient of Dr. Rosen Presents because of bleeding from his left arm fistula. Patient got hemodialysis on Sunday, yesterday Sunday he was watching TV when suddenly his fistula broke up spontaneously and started bleeding profusely. Patient denies being on blood th inner, he denies trauma. No chest pain or dyspnea or dizziness. He came to the emergency room where bleeding was controlled and one suture stitches is applied to the fistula site in the left upper arm. Also is status post one unit of blood transformation Vital signs stable, afebrile. Labs showing WBC of 10.2 K, hemoglobin 11, platelets 172, sodium 135, potassium 4.8, creatinine 5.7. Lactic acid 2.3 came back to normal 1.1 In the emergency room he received Lund 5 mg orally. 08/21/2019 Patient is clinically stable, no complaints. No more bleeding. Once this clean and dry with stitch is in place. Hemodynamically stable. She will controlled. Vascular surgery evaluated the patient and recommended an ultrasound of the left upper extremity, for possible and new fistula 08/22/2019 Patient is awake and alert. No specific complaints. He underwent hemodialysis with no problems throughout his left arm fistula Excision disease evaluated patient for right foot osteomyelitis, cultures were requested and patient was started empirically on cefepime Objective - Vital Signs Vital signs: Vital Signs Temp 98.1 F 08/22/19 11:36 Pulse 65 08/22/19 11:36 Resp 16 08/22/19 11:36 BP 104/49 08/22/19 11:36 Pulse Ox 100 08/22/19 04:26 Intake & Output 08/21/19 08/22/19 08/22/19 18:59 06:59 18:59 Intake Total 400 650 Output Total 500 1500 Balance -100 650 -1500 Weight 110.5 kg Intake: Oral 400 650 Output: Hemodialysis 500 1500 - Exam GENERAL: The patient is alert and oriented x3, not in any acute distress. Well developed, well nourished. HEENT: Pupils are round and equally reacting to light. EOMI. No scleral icterus. No conjunctival pallor. Normocephalic, atraumatic. No pharyngeal erythema. No thyromegaly. CARDIOVASCULAR: S1 and S2 present. No murmurs, rubs, or gallops. PULMONARY: Chest is clear to auscultation, no wheezing or crackles. ABDOMEN: Soft, nontender, nondistended, normoactive bowel sounds. No palpable organomegaly. MUSCULOSKELETAL: No joint swelling or deformity. -EXTREMITIES: No cyanosis, clubbing, or pedal edema. Left arm fistula with positive bruit, 1 stitch suture is in a Place. Right leg with cast NEUROLOGICAL: Gross neurological examination did not reveal any focal deficits. SKIN: No rashes. No petechiae - Labs CBC & Chem 7: 08/20/19 05:00 08/20/19 07:05 Labs: Abnormal Lab Results - Last 24 Hours (Table) 08/21/19 08/21/19 08/22/19 Range/Units 16:57 19:53 06:59 POC Glucose (mg/dL) 177 H 185 H 154 H (75-99) mg/dL C-Reactive Protein (<10.0) mg/L 08/22/19 08/22/19 Range/Units 09:40 11:39 POC Glucose (mg/dL) 121 H (75-99) mg/dL C-Reactive Protein 14.9 H (<10.0) mg/L Microbiology - Last 24 Hours (Table) 08/21/19 12:30 Gram Stain - Preliminary Foot - Right Wound Culture - Preliminary Gram Neg Bacilli Group D Enterococcus 08/21/19 12:30 Anaerobic Culture - Preliminary Foot - Right Assessment and Plan Assessment: Spontaneous bleeding from left arm fistula Acute blood loss anemia status post one unit of blood transfusion Limited lactic acid, came back to normal Diabetes mellitus Hypertension End-stage renal disease on hemodialysis Right foot wound, status post cast Chronic heart failure Atrial fibrillation Seizure disorder at childhood Legally blind secondary to diabetic retinopathy Diabetic neuropathy Plan: This is a pleasant 69 years old male who presents with bleeding fistula, status post bleeds control and suturing of the fistula. Nephrology consult. Continue with hemodialysis. Monitor the patient closely. Restart aspirin .vascular surgery evaluated the patient and recommended outpatient follow-up. ID team started the patient on cefepime and wound culture are pending Labs and medication were reviewed.. Continue same treatment. Continue with symptomatic treatment. Resume home medication. Monitor lytes and vitals. DVT and GI prophylaxis. Further recommendations of the clinical course of the patient DVT prophylaxis: Subcutaneous heparin GI Prophylaxis: Pepcid
--- NOTE | 2019-08-22 13:05 | PN ---
PROGRESS NOTE Patient is seen for followup for end-stage renal disease. He is currently seen on dialysis, patient was admitted with bleeding from his AV fistula. He had a suture placed in the ER, currently with no active bleeding. Patient tolerated his dialysis treatment very well yesterday. He will follow up as outpatient with Vascular Surgery. There are plans for possible discharge today after dialysis. Patient also has chronic lower extremity wounds for which she was evaluated by Infectious Disease. PHYSICAL EXAMINATION: Today, patient is comfortable. Blood pressure 126/68, heart rate 63 per minute, he is afebrile. Examination shows chronic bilateral lower extremity wounds, now wrapped, no bleeding noted from the left arm AV fistula. 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 LABS: Show on 08/20/2019, potassium 4.8, creatinine 5.76, sodium 135. ASSESSMENT: 1. End-stage renal disease, on hemodialysis on a Sunday, Sunday, Sunday schedule. 2. Bleeding from AV fistula to follow up with Vascular Surgery as outpatient. Patient had a suture placed in the ER, currently with no active bleeding. Patient is being dialyzed using 17-gauge needles. 3. Bilateral chronic lower extremity wounds, being followed by Infectious Disease. PLAN: Hemodialysis today, continue to use 17-gauge needles. Ultrafiltration about 1 to 1.5 L. Maintain midodrine if blood pressure drops during treatment. MMODL / IJN: [id number] /
[2019-08-22 16:42] LABS: Glucose,Whole Blood 202 mg/dL (75-99)
[2019-08-22] MEDS ORDERED: VANCOMYCIN IV PER PHARMACY 1 EACH MISC MISCELLANE PRN (16:47)
[2019-08-22] MEDS ORDERED: VANCOMYCIN 1,750 MG in SODIUM CHLORIDE 0.9% 500 ML 500 ML IVPB ONE (17:00)
--- NOTE | 2019-08-22 17:32 | PN ---
PROGRESS NOTE DATE OF SERVICE: 08/22/2019 REASON FOR FOLLOWUP: Right foot osteomyelitis. INTERVAL HISTORY: The patient is currently afebrile, has been breathing comfortably. Denies any further bleeding from the dialysis site. No chest pain, shortness of breath or cough. No abdominal pain or pain to the right foot area. PHYSICAL EXAMINATION: Blood pressure 104/49 with a pulse of 65, temperature 98.1. He is 100% on 3 L nasal cannula. General description is an elderly male up in the chair in no distress. RESPIRATORY SYSTEM: Unlabored breathing. Clear to auscultation anteriorly. HEART: S1, S2. Regular rate and rhythm. ABDOMEN: Soft. No tenderness. Right foot is currently dressed up. No obvious drainage on the dressing. LABS: Sedimentation rate of 63. CRP is 14.9. Cultures are showing a Gram-negative and group D Enterococcus. DIAGNOSTIC IMPRESSION AND PLAN: Patient with a right foot chronic nonhealing wound on the plantar aspect of the right foot at the base of the fifth metatarsal head. Previous culture revealed Pseudomonas. Now culture is showing a Gram-negative in addition to group D Enterococcus. We will add vancomycin, Pharmacy to dose, while waiting for the culture to finalize and continue with supportive care. MMODL / IJN: [id number] / FELIPE
[2019-08-22 20:16] LABS: Glucose,Whole Blood 237 mg/dL (75-99)
[2019-08-22] MEDS: INSULIN DETEMIR (LEVEMIR) 100 UNIT/ML SYR SQ SCH (20:38)
[2019-08-23 07:16] LABS: Glucose,Whole Blood 160 mg/dL (75-99)
[2019-08-23] MEDS: FENOFIBRATE 160 MG TAB PO SCH (08:23)
[2019-08-23] MEDS: FUROSEMIDE 40 MG TAB PO SCH ×2 (08:23→17:27)
[2019-08-23] MEDS: METOPROLOL TARTRATE 50 MG TAB PO SCH ×2 (08:23→21:08)
[2019-08-23] MEDS: CALCIUM CARB-MAG CARB-FOLIC 1 EACH TAB PO SCH ×2 (08:23→17:27)
[2019-08-23] MEDS: HEPARIN SODIUM,PORCINE 5,000 UNIT/ML 1 ML VIAL SQ SCH ×2 (08:24→21:09)
[2019-08-23] MEDS: INSULIN ASPART (NovoLOG) 100 UNIT/ML VIAL SQ SCH ×4 (08:24→21:10)
[2019-08-23] MEDS: CEFEPIME 1 GM in SODIUM CHLORIDE 0.9% 50 ML IVPB SCH (08:24)
[2019-08-23] MEDS: SYMBICORT 160-4.5 MCG INHALER INHALATION SCH ×2 (08:24→20:08)
[2019-08-23] MEDS: ASPIRIN 81 MG PO SCH (08:24)
[2019-08-23] MEDS ORDERED: VANCOMYCIN 1,750 MG in SODIUM CHLORIDE 0.9% 500 ML 500 ML IVPB ONE (09:00)
--- NOTE | 2019-08-23 09:21 | P.PN ---
Subjective Patient is seen in follow-up for her incisional disease. He is maintained on hemodialysis on Sunday schedule. Denies chest pain or shortness of breath. No changes overnight. Vital signs are stable. General: The patient appeared well nourished and normally developed. HEENT: Head exam is unremarkable. Neck is without jugular venous distension. LUNGS: Lungs are clear to auscultation and percussion. Breath sounds decreased. HEART: Rate and Rhythm are regular. First and second heart sounds normal. No murmurs, rubs or gallops. ABDOMEN: Abdominal exam reveals normal bowel sounds. Non-tender and non- distended. EXTREMITITES: 1+ edema. Wrapped. No drainage noted. Objective - Vital Signs Vital signs: Vital Signs Temp 97.5 F L 08/23/19 05:00 Pulse 77 08/23/19 08:29 Resp 20 08/23/19 05:00 BP 156/67 08/23/19 05:00 Pulse Ox 100 08/23/19 05:00 Intake & Output 08/22/19 08/23/19 08/23/19 18:59 06:59 18:59 Intake Total 600 1250 Output Total 1500 Balance -900 1250 Weight 110.6 kg Intake: Intake, IV Titration 500 Amount Vancomycin 1,750 mg In 500 Sodium Chloride 0.9% 500 ml 500 ml @ 167 mls/hr IVPB ONCE ONE Rx#: [id number] Oral 600 750 Output: Hemodialysis 1500 Other: Voiding Method Urinal # Voids 1 0 - Labs CBC & Chem 7: 08/20/19 05:00 08/20/19 07:05 Labs: Abnormal Lab Results - Last 24 Hours (Table) 08/22/19 08/22/19 08/22/19 Range/Units 09:40 09:40 11:39 ESR 63 H (0-15) mm/hr POC Glucose (mg/dL) 121 H (75-99) mg/dL C-Reactive Protein 14.9 H (<10.0) mg/L 08/22/19 08/22/19 08/23/19 Range/Units 16:41 20:05 07:16 ESR (0-15) mm/hr POC Glucose (mg/dL) 202 H 237 H 160 H (75-99) mg/dL C-Reactive Protein (<10.0) mg/L Microbiology - Last 24 Hours (Table) 08/21/19 12:30 Gram Stain - Preliminary Foot - Right Wound Culture - Preliminary Gram Neg Bacilli Group D Enterococcus Assessment and Plan Plan: Assessment: 1. End-stage renal disease maintained on hemodialysis on Sunday schedule. 2. Chronic kidney disease mineral bone disease maintained on phosphate binders. 3. Bleeding AV fistula currently improved. Using 17-gauge needles. He will follow-up with vascular surgery outpatient. 4. Bilateral chronic lower extremity wounds maintain on antibiotics. Wound culture positive for gram-negative bacilli and group D enterococcus. Infectious disease following. 5. Insulin-dependent diabetes mellitus. 6. Hypertension with chronic kidney disease. Stable. Plan: Hemodialysis on Sunday. Target vancomycin level less than 20.
[2019-08-23 12:03] LABS: Glucose,Whole Blood 138 mg/dL (75-99)
[2019-08-23 12:04] LABS: Basophils % (A) 0 %; Eosinophils # (A) 0.4 k/uL (0-0.7); Eosinophils % (A) 4 %; HCT 31.6 % (39.0-53.0); Hypochromasia Marked; Lymphocytes # (A) 0.9 k/uL (1.0-4.8); Lymphocytes % (A) 11 %; MCH 31.5 pg (25.0-35.0); MCHC 30.2 g/dL (31.0-37.0); MCV 104.1 fL (80.0-100.0); Macrocytosis Moderate; Mean Platelet Volume 8.5; Monocytes # (A) 0.5 k/uL (0-1.0); Monocytes % (A) 6 %; Neutrophils # (A) 6.7 k/uL (1.3-7.7); Neutrophils % (A) 77 %; Platelet Count 154 k/uL (150-450); RBC 3.03 m/uL (4.30-5.90); WBC 8.7 k/uL (3.8-10.6)
[2019-08-23 12:15] LABS: Albumin 3.3 g/dL (3.5-5.0); Calcium 8.9 mg/dL (8.4-10.2); Magnesium 2.4 mg/dL (1.6-2.3); Potassium 5.7 mmol/L (3.5-5.1); Total Bilirubin 0.4 mg/dL (0.2-1.3)
[2019-08-23 12:17] LABS: HGB 9.5 gm/dL (13.0-17.5)
[2019-08-23] MEDS ORDERED: SODIUM POLYSTYRENE SULFONATE 15 GM/60 ML BOTTLE PO STA (14:00)
[2019-08-23] MEDS ORDERED: ALPRAZolam 0.25 MG TAB PO PRN (14:37)
[2019-08-23] MEDS: FOLIC ACID 1 MG TAB PO SCH (15:22)
[2019-08-23] MEDS: MULTIVITAMINS, THERA 1 EACH TAB PO SCH (15:22)
[2019-08-23] MEDS: THIAMINE 100 MG TAB PO SCH (15:22)
--- NOTE | 2019-08-23 16:07 | PN ---
PROGRESS NOTE DATE OF SERVICE: 08/23/2019 This 69-year-old gentleman with a past history of multiple medical problems including end-stage renal disease was admitted with bleeding from the AV fistula. The patient's hemoglobin is dropping. At this time the patient is being closely monitored. The patient also had right foot osteomyelitis, on antibiotics. Dr. Hodges from infectious Disease is following the patient closely. No chest pain. No palpitations. PAST MEDICAL HISTORY: Reviewed. REVIEW OF SYSTEMS: CARDIOVASCULAR No angina or palpitations. RESPIRATORY As mentioned earlier. GI As mentioned earlier. HEMATOLOGY/ONCOLOGY As mentioned earlier. CURRENT MEDICATIONS: 1. Tylenol p.r.n. 2. Xanax 0.5 t.i.d. p.r.n. 3. Aspirin 81 mg p.o. daily. 4. Symbicort 160/4.5 two puffs b.i.d. 5. Magnavit 400 mg p.o. b.i.d. 6. PhosLo 667 p.o. daily. 7. Cefepime 1 g daily. 8. Lofibra 160 mg. 9. Folic acid. 10.Heparin. 11.Dilaudid. 12.Levemir. 13.Lopressor. 14.Vancomycin. 15.Multivitamins. 16.Narcan. 17.Procardia. 18.Levocarnitine. 19.Lopressor. 20.Vitamin B1. PHYSICAL EXAM: Patient is alert, oriented x3. Pulse is 54, blood pressure 101/44, respirations 17, temperature 98.2, pulse ox 100% on 3 L. HEENT: Conjunctivae pale. Oral mucosa moist. NECK: No jugular venous distention. No lymph node enlargement. CARDIOVASCULAR: S1, S2. RESPIRATORY: Diminished breath sounds at the bases. A few scattered rhonchi. ABDOMEN: Soft, nontender. LEGS: Minimal edema. NERVOUS SYSTEM: No focal deficits. LABS: At this time shows WBC 8.7, hemoglobin 9.5, and ESR is 63. C-reactive protein is 14.9. The most recent culture showed Providencia rettgeri and gram-negative bacilli, group D Enterococcus. ASSESSMENT: 1. Spontaneous bleeding from the left arm AV fistula for hemodialysis. 2. Acute blood loss anemia status post 1 unit of transfusion secondary to bleeding. 3. Right foot osteomyelitis with polymicrobial including Providencia, gram-negative bacilli and group D Enterococcus. 4. Diabetes mellitus type 2. 5. Chronic renal disease, end-stage renal disease on hemodialysis. 6. Hypertension. 7. Congestive heart failure, ejection fraction unknown. 8. History of atrial fibrillation, chronic. 9. History of seizure disorder. 10.History of legal blindness secondary to diabetic retinopathy. 11.Diabetic neuropathy. 12.Peripheral neuropathy. 13.Gait dysfunction. RECOMMENDATIONS AND DISCUSSION: In this 69-year-old gentleman with multiple complex medical issues, we will monitor the patient closely. Resume the home medications. Continue the antibiotics. Long-term antibiotic plan per Dr. Hodges, Infectious Disease. Otherwise, we will continue to monitor. Vascular Surgery has seen the patient with the bleeding fistula and recommend outpatient followup. No active bleeding is noted at this time although hemoglobin is dropping. I would recommend CBC. Continue to monitor. Overall prognosis guarded because of multiple complex medical issues. Further recommendations to follow. MMODL / IJN: [id number] /
[2019-08-23 16:53] LABS: Glucose,Whole Blood 165 mg/dL (75-99)
[2019-08-23] MEDS: levOCARNitine (WITH SUGAR) 100 MG/ML BOTTLE PO SCH (18:57)
--- NOTE | 2019-08-23 19:49 | PN ---
PROGRESS NOTE DATE OF SERVICE: 08/23/2019 REASON FOR FOLLOWUP: Right foot wound with underlying osteomyelitis. INTERVAL HISTORY: The patient is currently afebrile. Patient is breathing comfortably. Denies having any chest pain, shortness of breath or cough. No abdominal pain or discomfort to the right foot. PHYSICAL EXAMINATION: Blood pressure 101/44 with a pulse of 84, temperature 98.2. He is 90% on 3 L. General description is an elderly male up in the chair in no distress. Respiratory system: Unlabored breathing, clear to auscultation anteriorly. Heart S1, S2. Regular rate and rhythm. Abdomen soft, no tenderness. LABS: Hemoglobin 9.5, white count 8.7, BUN of 48, creatinine 6.29. Wound culture with Providencia, gram-negative and Enterococcus. DIAGNOSTIC IMPRESSION AND PLAN: Patient with right foot nonhealing wound at the base of the fifth metatarsal has underlying osteomyelitis. Culture with three pathogens. Patient is covered with cefepime and the vancomycin, to continue. Will wait for the culture to determine his discharge antibiotics. Hopefully it can be done through the dialysis to avoid a PICC line. Local wound care to continue per wound care team. Continue supportive care. MMODL / IJN: [id number] /
[2019-08-23 20:19] LABS: Glucose,Whole Blood 247 mg/dL (75-99)
[2019-08-23] MEDS: LACTULOSE 20 GM/30 ML CUP PO SCH (21:11)
[2019-08-23] MEDS: INSULIN DETEMIR (LEVEMIR) 100 UNIT/ML SYR SQ SCH (21:11)
--- NOTE | 2019-08-23 22:34 | CONS ---
CONSULTATION REASON FOR CONSULTATION: Ventricular tachycardia, and atrial fibrillation with pauses. HISTORY OF PRESENT ILLNESS: Mr. Palma is a 69-year-old gentleman with a known history of end-stage renal disease on hemodialysis, who also has chronic atrial fibrillation and has had issues with bleeding and he sees a manager inside in the [place] area and apparently he was asked to stop anticoagulation and this was about 2 months ago. He came into the hospital because of ongoing bleeding from the AV fistula where he was having his dialysis from and while he was in the hospital, he had atrial fibrillation, rate was controlled. There were pauses of up to 2 seconds, which do not seem significant, but he also had what seems to be or what was thought to be a wide QRS tachycardia. On reviewing the rhythm strips, this is an an artifact. There is no evidence of ventricular tachycardia. His atrial fibrillation rate is well controlled. There was evidence of some bradycardia, but the pauses were no more than 2.06 seconds and there was no associated symptoms. At the time of my evaluation, the patient is resting comfortably. The bleeding is stopped. He has no chest pain or shortness of breath. His functional capacity is limited. He seems to be doing fine in and in absolutely no distress. Please refer to the detailed consultation from June 15. This gentleman has chronic atrial fibrillation, end-stage renal disease on hemodialysis, hypertension, hyperlipidemia, and type 2 diabetes mellitus. PAST MEDICAL HISTORY: Is remarkable for diabetes, hypertension, hyperlipidemia, chronic atrial fib, and end- stage renal disease on hemodialysis. He is status post bilateral cataract surgery, he has also had some wound issues, rotator cuff repair in the past. MEDICATIONS: Medications at home include insulin, gemfibrozil, Symbicort inhaler, omeprazole, metoprolol tartrate 50 mg b.i.d., Lasix 40 mg b.i.d., Procardia XL 60 mg daily, aspirin 81 mg daily. He also takes some Xanax. ALLERGIES: HE IS ALLERGIC TO BACTRIM. PHYSICAL EXAMINATION: On examination, blood pressure is 110/70, pulse rate is about 68, irregular. HEENT: Unremarkable. Fundus was not examined by me. NECK: Supple. There is JVD of 1 cm. No carotid bruit. HEART exam reveals S1, S2 with irregular rhythm, short systolic murmur. LUNGS reveal diminished air entry. ABDOMEN is soft. LOWER EXTREMITIES reveal diminished pulses. CENTRAL NERVOUS SYSTEM examination was performed in a very limited manner. No focal deficits. IMPRESSION: 1. There is no evidence of any ventricular tachycardia. The rhythm in question appears to be an artifact. 2. Atrial fibrillation, chronic. Rate is well controlled. There is evidence of a 2.2 second pauses. No symptoms. 3. Hypertension. 4. Diabetes. 5. End-stage renal disease on hemodialysis. RECOMMENDATION: I am recommending that we continue all his current medications. No intervention necessary. His potassium was high at 5.7 and Nephrology will address this. His magnesium level is 2.4. No other intervention necessary from a cardiac standpoint. We can, if necessary, reduce the dose of metoprolol but I do not believe it is necessary. Ejection fraction is in the 40% to 45% range based on echo from May. Thank you very much for the consult. We will see the patient as needed. MMODL / IJN: [id number] /
[2019-08-23] MEDS: ACETAMINOPHEN TAB 325 MG TAB PO PRN (23:43)
[2019-08-24 06:43] LABS: Calcium 8.9 mg/dL (8.4-10.2); Magnesium 2.6 mg/dL (1.6-2.3); Potassium 5.6 mmol/L (3.5-5.1)
[2019-08-24 06:45] LABS: Anisocytosis Slight; Basophils % (A) 1 %; Eosinophils # (A) 0.5 k/uL (0-0.7); Eosinophils % (A) 6 %; HCT 30.1 % (39.0-53.0); HGB 9.4 gm/dL (13.0-17.5); Hypochromasia Moderate; Lymphocytes # (A) 1.1 k/uL (1.0-4.8); Lymphocytes % (A) 14 %; MCH 32.5 pg (25.0-35.0); MCHC 31.2 g/dL (31.0-37.0); MCV 104.3 fL (80.0-100.0); Macrocytosis Moderate; Mean Platelet Volume 8.6; Monocytes # (A) 0.5 k/uL (0-1.0); Monocytes % (A) 6 %; Neutrophils # (A) 5.8 k/uL (1.3-7.7); Neutrophils % (A) 73 %; Platelet Count 169 k/uL (150-450); RBC 2.88 m/uL (4.30-5.90); RDW 16.3 % (11.5-15.5); WBC 7.9 k/uL (3.8-10.6)
[2019-08-24 07:00] LABS: Glucose,Whole Blood 85 mg/dL (75-99)
[2019-08-24 07:54] LABS: Vancomycin,Random 27.2 ug/mL
[2019-08-24] MEDS: INSULIN ASPART (NovoLOG) 100 UNIT/ML VIAL SQ SCH ×4 (08:05→21:28)
[2019-08-24] MEDS: LACTULOSE 20 GM/30 ML CUP PO SCH ×4 (08:08→20:26)
[2019-08-24] MEDS: CEFEPIME 1 GM in SODIUM CHLORIDE 0.9% 50 ML IVPB SCH (08:10)
[2019-08-24] MEDS: levOCARNitine (WITH SUGAR) 100 MG/ML BOTTLE PO SCH ×3 (08:11→17:14)
[2019-08-24] MEDS: FUROSEMIDE 40 MG TAB PO SCH ×2 (08:12→17:14)
[2019-08-24] MEDS: CALCIUM CARB-MAG CARB-FOLIC 1 EACH TAB PO SCH ×2 (08:12→17:13)
[2019-08-24] MEDS: VIT A,C & E-LUTEIN-MINERALS 1 EACH TAB PO SCH (08:12)
[2019-08-24] MEDS: PANTOPRAZOLE 40 MG TABLET PO SCH (08:12)
[2019-08-24] MEDS: ASPIRIN 81 MG PO SCH (08:12)
[2019-08-24] MEDS: METOPROLOL TARTRATE 50 MG TAB PO SCH ×2 (08:12→21:28)
[2019-08-24] MEDS: HEPARIN SODIUM,PORCINE 5,000 UNIT/ML 1 ML VIAL SQ SCH ×2 (08:12→21:27)
[2019-08-24] MEDS: FENOFIBRATE 160 MG TAB PO SCH (08:12)
[2019-08-24] MEDS: ACETAMINOPHEN TAB 325 MG TAB PO PRN ×2 (08:46→21:51)
[2019-08-24] MEDS: SYMBICORT 160-4.5 MCG INHALER INHALATION SCH ×2 (09:15→21:34)
[2019-08-24] MEDS: NON FORMULARY DRUG (Prorenal + D 1 TAB) PO SCH (10:42)
[2019-08-24 11:03] LABS: Glucose,Whole Blood 114 mg/dL (75-99)
--- NOTE | 2019-08-24 11:08 | P.PN ---
Subjective Patient is seen in follow-up for end-stage renal disease. He is maintained on hemodialysis on Sunday schedule. Denies chest pain or shortness of breath. No changes overnight. Hemodynamically stable. Vital signs are stable. General: The patient appeared well nourished and normally developed. HEENT: Head exam is unremarkable. Neck is without jugular venous distension. LUNGS: Lungs are clear to auscultation and percussion. Breath sounds decreased. HEART: Rate and Rhythm are regular. First and second heart sounds normal. No murmurs, rubs or gallops. ABDOMEN: Abdominal exam reveals normal bowel sounds. Non-tender and non- distended. EXTREMITITES: 1+ edema. Wrapped. No drainage noted. Objective - Vital Signs Vital signs: Vital Signs Temp 97.9 F 08/24/19 05:00 Pulse 63 08/24/19 05:00 Resp 20 08/24/19 05:00 BP 111/58 08/24/19 05:00 Pulse Ox 100 08/24/19 05:00 Intake & Output 08/23/19 08/24/19 08/24/19 18:59 06:59 18:59 Intake Total 1750 200 Balance 1750 200 Weight 112.4 kg Intake: Intake, IV Titration 550 Amount Cefepime 1 gm In Sodium 50 Chloride 0.9% 50 ml @ 100 mls/hr IVPB DAILY [facility] Rx #:[id number] Vancomycin 1,750 mg In 500 Sodium Chloride 0.9% 500 ml 500 ml @ 167 mls/hr IVPB ONCE ONE Rx#: [id number] Oral 1200 200 Other: Voiding Method Urinal Urinal # Voids 3 # Bowel Movements 3 - Labs CBC & Chem 7: 08/24/19 06:07 08/24/19 06:07 Labs: Abnormal Lab Results - Last 24 Hours (Table) 08/23/19 08/23/19 08/23/19 Range/Units 11:48 11:48 12:02 RBC 3.03 L (4.30-5.90) m/uL Hgb 9.5 L D (13.0-17.5) gm/dL Hct 31.6 L (39.0-53.0) % MCV 104.1 H (80.0-100.0) fL MCHC 30.2 L (31.0-37.0) g/dL RDW 16.0 H (11.5-15.5) % Lymphocytes # 0.9 L (1.0-4.8) k/uL Potassium 5.7 H (3.5-5.1) mmol/L BUN 48 H (9-20) mg/dL Creatinine 6.29 H (0.66-1.25) mg/dL Glucose 133 H (74-99) mg/dL POC Glucose (mg/dL) 138 H (75-99) mg/dL Magnesium 2.4 H (1.6-2.3) mg/dL Albumin 3.3 L (3.5-5.0) g/dL 08/23/19 08/23/19 08/24/19 Range/Units 16:52 20:18 06:07 RBC (4.30-5.90) m/uL Hgb (13.0-17.5) gm/dL Hct (39.0-53.0) % MCV (80.0-100.0) fL MCHC (31.0-37.0) g/dL RDW (11.5-15.5) % Lymphocytes # (1.0-4.8) k/uL Potassium 5.6 H (3.5-5.1) mmol/L BUN 56 H (9-20) mg/dL Creatinine 7.27 H* (0.66-1.25) mg/dL Glucose (74-99) mg/dL POC Glucose (mg/dL) 165 H 247 H (75-99) mg/dL Magnesium 2.6 H (1.6-2.3) mg/dL Albumin (3.5-5.0) g/dL 08/24/19 08/24/19 Range/Units 06:07 11:01 RBC 2.88 L (4.30-5.90) m/uL Hgb 9.4 L (13.0-17.5) gm/dL Hct 30.1 L (39.0-53.0) % MCV 104.3 H (80.0-100.0) fL MCHC (31.0-37.0) g/dL RDW 16.3 H (11.5-15.5) % Lymphocytes # (1.0-4.8) k/uL Potassium (3.5-5.1) mmol/L BUN (9-20) mg/dL Creatinine (0.66-1.25) mg/dL Glucose (74-99) mg/dL POC Glucose (mg/dL) 114 H (75-99) mg/dL Magnesium (1.6-2.3) mg/dL Albumin (3.5-5.0) g/dL Microbiology - Last 24 Hours (Table) 08/21/19 12:30 Gram Stain - Final Foot - Right Wound Culture - Final Providencia rettgeri Citrobacter braakii Enterococcus faecalis Assessment and Plan Plan: Assessment: 1. End-stage renal disease maintained on hemodialysis on Sunday schedule. 2. Chronic kidney disease mineral bone disease maintained on phosphate binders. 3. Bleeding AV fistula currently improved. Using 17-gauge needles. He will follow-up with vascular surgery outpatient. 4. Bilateral chronic lower extremity wounds maintain on antibiotics. Wound culture positive for Providencia, Citrobacter and enterococcus. Infectious disease following. 5. Insulin-dependent diabetes mellitus. 6. Hypertension with chronic kidney disease. Stable. Plan: Hemodialysis on Sunday. Target vancomycin level less than 20. If has any active bleeding from the access tomorrow, will need vascular surgery evaluation inpatient.
[2019-08-24] MEDS: MULTIVITAMINS, THERA 1 EACH TAB PO SCH (13:07)
[2019-08-24] MEDS: THIAMINE 100 MG TAB PO SCH (13:07)
[2019-08-24] MEDS: FOLIC ACID 1 MG TAB PO SCH (13:07)
[2019-08-24 16:55] LABS: Glucose,Whole Blood 206 mg/dL (75-99)
--- NOTE | 2019-08-24 19:50 | PN ---
PROGRESS NOTE DATE OF SERVICE: 08/24/2019 This 69-year-old gentleman admitted with multiple medical problems including history of renal disease is on hemodialysis. The patient also had some bleeding from the ascites, which is improving at this time. No chest pain. No palpitations. Hemodialysis is being continued. PHYSICAL EXAMINATION: Alert and oriented x2. Pulse is 59, blood pressure 119/59, respirations 16, temperature 97.6, pulse ox 97% on room air. HEENT: Conjunctivae normal. NECK: No JVD. CARDIOVASCULAR: S1, S2 muffled. RESPIRATORY: Breath sounds diminished in the bases. Scattered rhonchi and crackles. ABDOMEN is soft, nontender. LEGS are no edema. No swelling. NERVOUS SYSTEM: No focal deficits. LABS: WBC 7.2, hemoglobin 9.4, sodium 130, potassium 5.6, creatinine 7.27. ASSESSMENT: 1. Spontaneous bleeding from left arm AV fistula for hemodialysis. 2. Acute blood loss anemia status post 1 unit transfusion secondary to bleeding. 3. Right foot osteomyelitis with polymicrobial zari including Providencia, gram- negative bacilli and group D Enterococcus. 4. Diabetes mellitus type 2. 5. Chronic renal failure with end-stage renal disease on hemodialysis. 6. Hypertension. 7. Congestive heart failure, ejection fraction unknown. 8. History of atrial fibrillation, chronic. 9. History of seizure disorder. 10.History of legal blindness secondary to diabetic retinopathy. 11.Diabetic neuropathy. 12.Peripheral neuropathy. 13.Gait dysfunction. RECOMMENDATIONS AND DISCUSSION: Recommend to continue current medications, continue monitoring, symptomatic treatment. Otherwise, monitor hemoglobin closely. Continue the hemodialysis. Prognosis guarded. Further recommendations to follow. MMODL / IJN: [id number] /
[2019-08-24 20:02] LABS: Glucose,Whole Blood 222 mg/dL (75-99)
[2019-08-24] MEDS: INSULIN DETEMIR (LEVEMIR) 100 UNIT/ML SYR SQ SCH (21:28)
--- NOTE | 2019-08-24 22:49 | PN ---
PROGRESS NOTE DATE OF SERVICE: 08/24/2019 REASON FOR FOLLOWUP: Right foot osteomyelitis, polymicrobial bacteremia. INTERVAL HISTORY: The patient is currently afebrile. The patient is a breathing comfortably. Denies having any chest pain. No shortness of breath or cough. No abdominal pain. Pain to the right foot is currently controlled. PHYSICAL EXAMINATION: Blood pressure 119/59 with a pulse of 63, temperature 97.6. He is 97% on room air. General description is an elderly male up in the room in no distress. Respiratory system: Unlabored breathing, clear to auscultation anteriorly. Heart S1, S2. Regular rate and rhythm. Abdomen soft, no tenderness. Right foot is currently dressed up was no obvious drainage on the dressing. LABS: Hemoglobin 9.4, white count 7.9, BUN of 56, creatinine 7.27. DIAGNOSTIC IMPRESSION AND PLAN: Patient with right foot nonhealing plantar ulcer with underlying osteomyelitis confirmed on the x-ray and the bone scan. Cultures show multiple pathogens. Patient is covered with cefepime and vancomycin. We will try to arrange for antibiotic through the dialysis so we can avoid a PICC line and local wound care as ordered. Continue supportive care. MMODL / IJN: [id number] /
[2019-08-25] MEDS: ACETAMINOPHEN TAB 325 MG TAB PO PRN ×3 (02:13→23:17)
[2019-08-25 06:29] LABS: Anisocytosis Slight; Basophils % (A) 0 %; Eosinophils # (A) 0.5 k/uL (0-0.7); Eosinophils % (A) 6 %; HCT 29.4 % (39.0-53.0); HGB 9.1 gm/dL (13.0-17.5); Hypochromasia Moderate; Lymphocytes # (A) 0.9 k/uL (1.0-4.8); Lymphocytes % (A) 12 %; MCH 32.4 pg (25.0-35.0); MCV 104.5 fL (80.0-100.0); Macrocytosis Moderate; Mean Platelet Volume 8.2; Monocytes # (A) 0.4 k/uL (0-1.0); Monocytes % (A) 6 %; Neutrophils # (A) 5.7 k/uL (1.3-7.7); Neutrophils % (A) 75 %; Platelet Count 172 k/uL (150-450); RBC 2.81 m/uL (4.30-5.90); RDW 16.4 % (11.5-15.5); WBC 7.6 k/uL (3.8-10.6)
[2019-08-25 07:14] LABS: Glucose,Whole Blood 111 mg/dL (75-99)
[2019-08-25] MEDS: INSULIN ASPART (NovoLOG) 100 UNIT/ML VIAL SQ SCH ×4 (07:51→21:48)
[2019-08-25] MEDS: CEFEPIME 1 GM in SODIUM CHLORIDE 0.9% 50 ML IVPB SCH (07:57)
[2019-08-25] MEDS: PANTOPRAZOLE 40 MG TABLET PO SCH (07:58)
[2019-08-25] MEDS: FOLIC ACID 1 MG TAB PO SCH (07:58)
[2019-08-25] MEDS: METOPROLOL TARTRATE 50 MG TAB PO SCH ×2 (07:58→21:49)
[2019-08-25] MEDS: FUROSEMIDE 40 MG TAB PO SCH ×2 (07:58→15:45)
[2019-08-25] MEDS: ASPIRIN 81 MG PO SCH (07:58)
[2019-08-25] MEDS: levOCARNitine (WITH SUGAR) 100 MG/ML BOTTLE PO SCH ×3 (07:59→16:51)
[2019-08-25] MEDS: VIT A,C & E-LUTEIN-MINERALS 1 EACH TAB PO SCH (07:59)
[2019-08-25] MEDS: FENOFIBRATE 160 MG TAB PO SCH (07:59)
[2019-08-25] MEDS: HEPARIN SODIUM,PORCINE 5,000 UNIT/ML 1 ML VIAL SQ SCH ×2 (07:59→21:51)
[2019-08-25] MEDS: NON FORMULARY DRUG (Prorenal + D 1 TAB) PO SCH (08:00)
[2019-08-25] MEDS: CALCIUM CARB-MAG CARB-FOLIC 1 EACH TAB PO SCH ×2 (08:16→16:51)
[2019-08-25] MEDS: SYMBICORT 160-4.5 MCG INHALER INHALATION SCH ×2 (09:50→21:29)
--- NOTE | 2019-08-25 10:25 | P.PN ---
Subjective Patient is seen in follow-up for end-stage renal disease. He is maintained on hemodialysis on Sunday schedule. Denies chest pain or shortness of breath. No changes overnight. Hemodynamically stable. No active complaints. Vital signs are stable. General: The patient appeared well nourished and normally developed. HEENT: Head exam is unremarkable. Neck is without jugular venous distension. LUNGS: Lungs are clear to auscultation and percussion. Breath sounds decreased. HEART: Rate and Rhythm are regular. First and second heart sounds normal. No murmurs, rubs or gallops. ABDOMEN: Abdominal exam reveals normal bowel sounds. Non-tender and non- distended. EXTREMITITES: 1+ edema. Wrapped. No drainage noted. Objective - Vital Signs Vital signs: Vital Signs Temp 97.8 F 08/25/19 05:00 Pulse 60 08/25/19 05:00 Resp 16 08/25/19 05:00 BP 126/53 08/25/19 05:00 Pulse Ox 100 08/25/19 05:00 Intake & Output 08/24/19 08/25/19 08/25/19 18:59 06:59 18:59 Intake Total 810 240 Balance 810 240 Weight 114.9 kg Intake: Oral 810 240 Other: Voiding Method Urinal Urinal # Voids 1 1 # Bowel Movements 3 - Labs CBC & Chem 7: 08/25/19 05:52 08/24/19 06:07 Labs: Abnormal Lab Results - Last 24 Hours (Table) 08/24/19 08/24/19 08/24/19 Range/Units 11:01 16:54 20:01 RBC (4.30-5.90) m/uL Hgb (13.0-17.5) gm/dL Hct (39.0-53.0) % MCV (80.0-100.0) fL RDW (11.5-15.5) % Lymphocytes # (1.0-4.8) k/uL POC Glucose (mg/dL) 114 H 206 H 222 H (75-99) mg/dL 08/25/19 08/25/19 Range/Units 05:52 07:05 RBC 2.81 L (4.30-5.90) m/uL Hgb 9.1 L (13.0-17.5) gm/dL Hct 29.4 L (39.0-53.0) % MCV 104.5 H (80.0-100.0) fL RDW 16.4 H (11.5-15.5) % Lymphocytes # 0.9 L (1.0-4.8) k/uL POC Glucose (mg/dL) 111 H (75-99) mg/dL Microbiology - Last 24 Hours (Table) 08/21/19 12:30 Gram Stain - Final Foot - Right Wound Culture - Final Providencia rettgeri Citrobacter braakii Enterococcus faecalis Assessment and Plan Plan: Assessment: 1. End-stage renal disease maintained on hemodialysis on Sunday schedule. 2. Chronic kidney disease mineral bone disease maintained on phosphate binders. 3. Bleeding AV fistula currently improved. Using 17-gauge needles. He will follow-up with vascular surgery outpatient. 4. Bilateral chronic lower extremity wounds maintain on antibiotics. Wound culture positive for Providencia, Citrobacter and enterococcus. Infectious disease following. 5. Insulin-dependent diabetes mellitus. 6. Hypertension with chronic kidney disease. Stable. 7. Anemia of chronic kidney disease. Plan: Hemodialysis today. Target vancomycin level less than 20. If has any active bleeding from the access today, will need vascular surgery evaluation inpatient. Add Aranesp.
[2019-08-25] MEDS ORDERED: DARBEPOETIN ALFA 40 MCG/0.4 ML SYRINGE SQ SCH (10:30)
[2019-08-25 11:52] LABS: Glucose,Whole Blood 86 mg/dL (75-99)
[2019-08-25] MEDS: MULTIVITAMINS, THERA 1 EACH TAB PO SCH (12:19)
[2019-08-25] MEDS: THIAMINE 100 MG TAB PO SCH (12:19)
--- NOTE | 2019-08-25 16:21 | PN ---
PROGRESS NOTE DATE OF SERVICE: 08/25/2019 REASON FOR FOLLOWUP: Right foot diabetic foot wound with underlying acute osteomyelitis with multiple bacteria. INTERVAL HISTORY: The patient is currently afebrile. The patient says he is not feeling that good today. The patient denies having any chest pain or shortness of breath or cough. No nausea, vomiting, abdominal pain or any pain to the right foot area. PHYSICAL EXAMINATION: Blood pressure is 125/65 with a pulse of 60, temperature is 97.8. He is 100% on 2 L. General description is an elderly male up in the chair in no distress. Respiratory system: Unlabored breathing, clear to auscultation anteriorly. Heart S1, S2. Regular rate and rhythm. Abdomen soft, no tenderness. Extremities: Right foot is dressed with no obvious drainage on the dressing. LABS: Hemoglobin 9.1, white count 7.6, BUN of 56, creatinine 7.27. DIAGNOSTIC IMPRESSION AND PLAN: Patient with right diabetic foot wound with underlying osteomyelitis, acute. Culture positive for Providencia, Citrobacter, Enterococcus and anaerobes. Plan will be for vancomycin pharmacy to dose that can be done through the dialysis plus oral Cipro and Flagyl for a total of 6 weeks. Local wound care per Wound Care team. Will avoid PICC line. Continue supportive care. MMODL / IJN: [id number] /
[2019-08-25 17:21] LABS: Glucose,Whole Blood 91 mg/dL (75-99)
--- NOTE | 2019-08-25 19:06 | PN ---
PROGRESS NOTE DATE OF SERVICE: 08/25/2019 This 69-year-old gentleman admitted with spontaneous bleeding of the left AV fistula, also had features of osteomyelitis. No chest pain. No palpitations. The patient is on hemodialysis. Infectious Disease seen the patient and the culture showing Proteus Citrobacter, Enterococcus and anaerobes. Dr. Hodges is planning vancomycin through the dialysis plus Cipro and Flagyl for a total of 6 weeks, local wound care and PICC line could be avoided according to Dr. Hodges. No chest pain, no palpitation. PHYSICAL EXAMINATION: Alert and oriented x3. Pulse is 56, blood pressure 125/60, respirations 17, temperature 97.8 pulse ox 100% on 3 L. HEENT: Conjunctivae normal. Oral mucosa moist. NECK: No jugular venous distention. No lymph node enlargement. CARDIOVASCULAR: S1, S2. RESPIRATORY: Diminished breath sounds at the bases. No rhonchi, no crackles. ABDOMEN: Soft, nontender. LEGS: No edema, no swelling. NERVOUS SYSTEM: No focal deficits. LABS: WBC of 7.7, hemoglobin 9.1. ASSESSMENT: 1. Spontaneous bleeding from the left arm AV fistula for hemodialysis. 2. Acute blood loss anemia from #1 status post one transfuse because of the bleeding. 3. Right foot acute osteomyelitis with polymicrobial zari including Providencia, gram- negative bacilli and group D Enterococcus. 4. Diabetes mellitus type 2. 5. Chronic renal failure with end-stage renal disease on hemodialysis. 6. Hypertension. 7. Congestive heart failure, ejection fraction unknown. 8. History of atrial fibrillation, chronic. 9. History of seizure disorder. 10.History of legal blindness secondary to diabetic retinopathy. 11.History of diabetic neuropathy. 12.Peripheral neuropathy. 13.Gait dysfunction. 14.FULL CODE. RECOMMENDATIONS AND DISCUSSION: In this 69-year-old gentleman who presented with multiple complex medical issues, we will monitor the patient closely, continue the current management, continue symptomatic treatment. Otherwise, we will recommend the patient to be continued on IV antibiotics per Dr. Hodges's recommendations. We will continue to monitor. Prognosis guarded. Further recommendations to follow. MMODL / IJN: [id number] /
[2019-08-25 21:23] LABS: Glucose,Whole Blood 200 mg/dL (75-99)
[2019-08-25] MEDS: INSULIN DETEMIR (LEVEMIR) 100 UNIT/ML SYR SQ SCH (21:51)
[2019-08-26] MEDS: ACETAMINOPHEN TAB 325 MG TAB PO PRN ×2 (03:25→13:34)
[2019-08-26 06:17] LABS: Glucose,Whole Blood 60 mg/dL (75-99)
[2019-08-26 06:36] LABS: Glucose,Whole Blood 70 mg/dL (75-99)
[2019-08-26 06:59] LABS: Anisocytosis Slight; Basophils # (A) 0.1 k/uL (0-0.2); Basophils % (A) 1 %; Eosinophils # (A) 0.4 k/uL (0-0.7); Eosinophils % (A) 5 %; HCT 29.9 % (39.0-53.0); HGB 9.2 gm/dL (13.0-17.5); Hypochromasia Moderate; Lymphocytes # (A) 0.9 k/uL (1.0-4.8); Lymphocytes % (A) 11 %; MCH 32.3 pg (25.0-35.0); MCHC 30.8 g/dL (31.0-37.0); MCV 104.7 fL (80.0-100.0); Macrocytosis Moderate; Mean Platelet Volume 8.2; Monocytes # (A) 0.6 k/uL (0-1.0); Monocytes % (A) 7 %; Neutrophils # (A) 6.3 k/uL (1.3-7.7); Neutrophils % (A) 76 %; Platelet Count 188 k/uL (150-450); RBC 2.86 m/uL (4.30-5.90); RDW 16.3 % (11.5-15.5); WBC 8.3 k/uL (3.8-10.6)
[2019-08-26 07:08] LABS: Glucose,Whole Blood 84 mg/dL (75-99)
[2019-08-26 07:27] LABS: Potassium 6.7 mmol/L (3.5-5.1)
[2019-08-26] MEDS: CEFEPIME 1 GM in SODIUM CHLORIDE 0.9% 50 ML IVPB SCH (07:39)
[2019-08-26] MEDS: INSULIN ASPART (NovoLOG) 100 UNIT/ML VIAL SQ SCH ×4 (07:39→20:40)
[2019-08-26] MEDS: HEPARIN SODIUM,PORCINE 5,000 UNIT/ML 1 ML VIAL SQ SCH ×2 (07:40→20:37)
[2019-08-26] MEDS: levOCARNitine (WITH SUGAR) 100 MG/ML BOTTLE PO SCH ×3 (07:40→17:27)
[2019-08-26] MEDS: FUROSEMIDE 40 MG TAB PO SCH ×2 (07:40→16:44)
[2019-08-26] MEDS: METOPROLOL TARTRATE 50 MG TAB PO SCH (07:40)
[2019-08-26] MEDS: CALCIUM CARB-MAG CARB-FOLIC 1 EACH TAB PO SCH ×2 (07:41→17:27)
[2019-08-26] MEDS: ASPIRIN 81 MG PO SCH (07:41)
[2019-08-26] MEDS: PANTOPRAZOLE 40 MG TABLET PO SCH (07:41)
[2019-08-26] MEDS: FENOFIBRATE 160 MG TAB PO SCH (07:41)
[2019-08-26] MEDS: VIT A,C & E-LUTEIN-MINERALS 1 EACH TAB PO SCH (07:42)
[2019-08-26] MEDS: NON FORMULARY DRUG (Prorenal + D 1 TAB) PO SCH (07:42)
[2019-08-26] MEDS ORDERED: CALCIUM GLUCONATE 1 GM in SODIUM CHLORIDE 0.9% 100 ML IVPB STA (08:09)
[2019-08-26] MEDS ORDERED: INSULIN REGULAR 100 UNIT/ML VIAL IV ONE ×3 (08:10→21:50)
[2019-08-26] MEDS ORDERED: DEXTROSE 50% SYRINGE 50 ML IVP STA ×3 (08:11→21:43)
[2019-08-26 08:38] LABS: Vancomycin,Random 23.1 ug/mL
[2019-08-26] MEDS: SYMBICORT 160-4.5 MCG INHALER INHALATION SCH ×2 (09:10→19:31)
--- NOTE | 2019-08-26 09:25 | P.PN ---
Subjective Progress Note Date: 08/26/19 Principal diagnosis: end-stage renal disease, left upper extremity malfunctioning fistula patient seen and examined at bedside. Per the patient no issues with his hemodialysis yesterday. He underwent 2 hours of hemodialysis and then stated he got uncomfortable and stopped the treatment. Per the tech access was without issue and flows were in the 300s. Upon completion she had no issues with bleeding. Patient denies any numbness or tingling in his hand or pain at the fistula site. He denies any fevers, chills, chest pain or shortness of breath. Objective - Vital Signs Vital signs: Vital Signs Temp 97.8 F 08/26/19 04:40 Pulse 60 08/26/19 04:40 Resp 20 08/26/19 04:40 BP 115/54 08/26/19 04:40 Pulse Ox 98 08/26/19 04:40 Intake & Output 08/25/19 08/26/19 08/26/19 18:59 06:59 18:59 Intake Total 1870 850 Output Total 500 Balance 1370 850 Weight 115.8 kg Intake: Intake, IV Titration 50 Amount Cefepime 1 gm In Sodium 50 Chloride 0.9% 50 ml @ 100 mls/hr IVPB DAILY [facility] Rx #:[id number] Oral 1820 850 Output: Hemodialysis 500 Other: Voiding Method Bedside Commode Bedside Commode Urinal Urinal # Voids 2 3 # Bowel Movements 2 1 - Exam left upper extremity fistula with palpable thrill and good augmentation. Dressings are in place without any excess bleeding noted. Palpable radial pulse. - Constitutional General appearance: Present: average body habitus, cooperative - EENT Eyes: Present: PERRLA - Respiratory Respiratory: bilateral: CTA - Cardiovascular Rhythm: regular - Neurologic Neurologic: Present: CNII-XII intact - Psychiatric Psychiatric: Present: A&O x's 3, appropriate affect - Labs CBC & Chem 7: 08/26/19 06:37 08/26/19 06:37 Labs: Abnormal Lab Results - Last 24 Hours (Table) 08/25/19 08/26/19 08/26/19 Range/Units 21:22 06:15 06:34 RBC (4.30-5.90) m/uL Hgb (13.0-17.5) gm/dL Hct (39.0-53.0) % MCV (80.0-100.0) fL MCHC (31.0-37.0) g/dL RDW (11.5-15.5) % Lymphocytes # (1.0-4.8) k/uL Potassium (3.5-5.1) mmol/L BUN (9-20) mg/dL Creatinine (0.66-1.25) mg/dL Glucose (74-99) mg/dL POC Glucose (mg/dL) 200 H 60 L 70 L (75-99) mg/dL 08/26/19 08/26/19 Range/Units 06:37 06:37 RBC 2.86 L (4.30-5.90) m/uL Hgb 9.2 L (13.0-17.5) gm/dL Hct 29.9 L (39.0-53.0) % MCV 104.7 H (80.0-100.0) fL MCHC 30.8 L (31.0-37.0) g/dL RDW 16.3 H (11.5-15.5) % Lymphocytes # 0.9 L (1.0-4.8) k/uL Potassium 6.7 H* (3.5-5.1) mmol/L BUN 60 H (9-20) mg/dL Creatinine 7.43 H* (0.66-1.25) mg/dL Glucose 67 L (74-99) mg/dL POC Glucose (mg/dL) (75-99) mg/dL Microbiology - Last 24 Hours (Table) 08/21/19 12:30 Anaerobic Culture - Final Foot - Right Anaerobic Gram Positive Cocci Assessment and Plan Assessment: #1 left upper extremity AV fistula malfunction #2 history of bleeding left upper extremity AV fistula currently controlled #3 end-stage renal disease #4 medical noncompliance #5 diabetic neuropathy Plan: patient will need a fistulogram with likely outflow stenosis balloon angioplasty to help with the increased pressure and bleeding after dialysis. This may be done as an outpatient unless he has issues with his hemodialysis today. We will schedule him for outpatient fistulogram with balloon angioplasty next Sunday.
--- NOTE | 2019-08-26 10:08 | P.PN ---
Subjective Patient is seen in follow-up for end-stage renal disease. He is maintained on hemodialysis on Sunday schedule. Denies chest pain or shortness of breath. He only completed 2 hours of hemodialysis treatment yesterday. Potassium level this morning is 6.7. Vital signs are stable. General: The patient appeared well nourished and normally developed. HEENT: Head exam is unremarkable. Neck is without jugular venous distension. LUNGS: Lungs are clear to auscultation and percussion. Breath sounds decreased. HEART: Rate and Rhythm are regular. First and second heart sounds normal. No murmurs, rubs or gallops. ABDOMEN: Abdominal exam reveals normal bowel sounds. Non-tender and non- distended. EXTREMITITES: 1+ edema. Wrapped. No drainage noted. Objective - Vital Signs Vital signs: Vital Signs Temp 97.8 F 08/26/19 04:40 Pulse 56 L 08/26/19 08:00 Resp 20 08/26/19 04:40 BP 115/54 08/26/19 04:40 Pulse Ox 98 08/26/19 04:40 Intake & Output 08/25/19 08/26/19 08/26/19 18:59 06:59 18:59 Intake Total 1870 850 Output Total 500 Balance 1370 850 Weight 115.8 kg Intake: Intake, IV Titration 50 Amount Cefepime 1 gm In Sodium 50 Chloride 0.9% 50 ml @ 100 mls/hr IVPB DAILY [facility] Rx #:[id number] Oral 1820 850 Output: Hemodialysis 500 Other: Voiding Method Bedside Commode Bedside Commode Bedside Commode Urinal Urinal Urinal # Voids 2 3 # Bowel Movements 2 1 - Labs CBC & Chem 7: 08/26/19 06:37 08/26/19 06:37 Labs: Abnormal Lab Results - Last 24 Hours (Table) 08/25/19 08/26/19 08/26/19 Range/Units 21:22 06:15 06:34 RBC (4.30-5.90) m/uL Hgb (13.0-17.5) gm/dL Hct (39.0-53.0) % MCV (80.0-100.0) fL MCHC (31.0-37.0) g/dL RDW (11.5-15.5) % Lymphocytes # (1.0-4.8) k/uL Potassium (3.5-5.1) mmol/L BUN (9-20) mg/dL Creatinine (0.66-1.25) mg/dL Glucose (74-99) mg/dL POC Glucose (mg/dL) 200 H 60 L 70 L (75-99) mg/dL 08/26/19 08/26/19 Range/Units 06:37 06:37 RBC 2.86 L (4.30-5.90) m/uL Hgb 9.2 L (13.0-17.5) gm/dL Hct 29.9 L (39.0-53.0) % MCV 104.7 H (80.0-100.0) fL MCHC 30.8 L (31.0-37.0) g/dL RDW 16.3 H (11.5-15.5) % Lymphocytes # 0.9 L (1.0-4.8) k/uL Potassium 6.7 H* (3.5-5.1) mmol/L BUN 60 H (9-20) mg/dL Creatinine 7.43 H* (0.66-1.25) mg/dL Glucose 67 L (74-99) mg/dL POC Glucose (mg/dL) (75-99) mg/dL Microbiology - Last 24 Hours (Table) 08/21/19 12:30 Anaerobic Culture - Final Foot - Right Anaerobic Gram Positive Cocci Assessment and Plan Plan: Assessment: 1. End-stage renal disease maintained on hemodialysis on Sunday schedule. 2. Chronic kidney disease mineral bone disease maintained on phosphate binders. 3. Bleeding AV fistula currently improved. Using 17-gauge needles. He was evaluated by vascular surgery this admission and plan is for fistulogram outpatient. 4. Bilateral chronic lower extremity wounds maintain on antibiotics. Wound culture positive for Providencia, Citrobacter and enterococcus. Infectious disease following. 5. Insulin-dependent diabetes mellitus. 6. Hypertension with chronic kidney disease. Stable. 7. Anemia of chronic kidney disease. Maintained on Aranesp. 8. Hyperkalemia secondary to chronic kidney disease. He also did not complete his hemodialysis treatment yesterday. Plan: Currently seen while undergoing hemodialysis. I will do half treatment with 2K bath and the other half at 1K bath. Plan for next treatment tomorrow. He also received 1 g IV calcium gluconate along with IV insulin with D50 this morning. Target vancomycin level less than 20. Repeat potassium level this evening. Strongly advised the patient to be compliant with his hemodialysis treatments. Risks of hyperkalemia were discussed with patient.
[2019-08-26 11:15] LABS: Glucose,Whole Blood 75 mg/dL (75-99)
[2019-08-26] MEDS: THIAMINE 100 MG TAB PO SCH (13:06)
[2019-08-26] MEDS: MULTIVITAMINS, THERA 1 EACH TAB PO SCH (13:06)
[2019-08-26] MEDS: FOLIC ACID 1 MG TAB PO SCH (13:06)
[2019-08-26 13:24] LABS: Glucose,Whole Blood 111 mg/dL (75-99)
--- NOTE | 2019-08-26 15:49 | PN ---
PROGRESS NOTE DATE OF SERVICE: 08/26/2019 REASON FOR FOLLOWUP: Right foot wound with underlying osteomyelitis, polymicrobial. INTERVAL HISTORY: The patient is currently afebrile, has been breathing comfortably. Denies having any chest pain or shortness of breath or cough. No abdominal pain or any pain to the right foot wound area. PHYSICAL EXAMINATION: Blood pressure 125/56, pulse of 70, temperature 98.3. He is 96% on 4 L nasal cannula. General description is an elderly male up in the chair in no distress. RESPIRATORY SYSTEM: Unlabored breathing. Clear to auscultation anteriorly. HEART: S1, S2. Regular rate and rhythm. ABDOMEN: Soft. No tenderness. Right foot is currently dressed up. LABS: Hemoglobin is 9.2, white count 8.3, potassium 6.7, creatinine 7.43. DIAGNOSTIC IMPRESSION AND PLAN: Patient with a right diabetic foot wound with underlying acute osteomyelitis. Culture positive for Providencia, Citrobacter, Enterococcus faecalis and anaerobes. Plan is for vancomycin, Pharmacy to dose, through the dialysis along with oral Cipro and Flagyl for a total of 6 weeks. Local care per the wound care team. Continue with supportive care. MMODL / IJN: [id number] /
[2019-08-26 17:05] LABS: Glucose,Whole Blood 185 mg/dL (75-99)
[2019-08-26 17:31] LABS: Calcium 8.8 mg/dL (8.4-10.2)
[2019-08-26] MEDS ORDERED: SODIUM BICARB 8.4% 50 ML SYR (1 MEQ/ML) IV STA ×2 (18:03→21:45)
[2019-08-26 20:18] LABS: Glucose,Whole Blood 195 mg/dL (75-99)
--- NOTE | 2019-08-26 20:25 | PN ---
PROGRESS NOTE DATE OF SERVICE: 08/26/2019 This 69-year-old gentleman who was admitted with multiple medical problems, including spontaneous bleeding at the left arm fistula, also was noted to have possibly outflow stenosis per Dr. Olvera. The patient had a fistulogram as an outpatient, according to him. The patient also had multiple other medical issues, including blood loss anemia as well as right foot acute osteomyelitis with multiple organisms. Today the patient's potassium was elevated. Dr. Castillo is recommending dialysis today and tomorrow. The patient is being closely monitored. Past medical history reviewed. REVIEW OF SYSTEMS: CARDIOVASCULAR SYSTEM: No angina, palpitations. RESPIRATORY SYSTEM: As mentioned earlier. GI: No nausea, vomiting, diarrhea. : As mentioned earlier. NERVOUS SYSTEM: No numbness, weakness. CURRENT MEDICATIONS: Reviewed. They include: 1. Tylenol 650 q.4 p.r.n. 2. Xanax 0.25 t.i.d. 3. Aspirin 81 mg p.o. daily. 4. Symbicort 160/4.5 two puffs b.i.d. 5. Magnebind 400 mg b.i.d. 6. PhosLo 667 daily. 7. Cefepime 1 gram daily. 8. Aranesp. 9. Lofibra. 10.Folic acid 1 mg daily. 11.Lasix 40 mg b.i.d. 12.Heparin 5000 units subcutaneously b.i.d. 13.Dilaudid. 14.Levemir. 15.Lopressor 50 mg p.o. b.i.d. 16.Multivitamins. 17.Narcan. 18.Procardia XL. 19.Zofran. 20.Protonix. 21.Vitamin B1. PHYSICAL EXAMINATION: Patient is alert, oriented x3. Pulse 70, blood pressure 125/56, respiration 17, temperature 98.3, pulse ox 96% on 4 L. HEENT: Conjunctivae normal. NECK: No jugular venous distention. CARDIOVASCULAR SYSTEM: S1, S2 muffled. RESPIRATORY SYSTEM: Breath sounds diminished at the bases. A few scattered rhonchi and crackles. ABDOMEN: Soft, non-tender. LEGS: No edema. No swelling. NERVOUS SYSTEM: No focal deficit. LABS: WBC 8.3, hemoglobin 9.2. Sodium 137, potassium 6.7, creatinine is 1.43. ASSESSMENT: 1. Spontaneous bleeding from the left AV fistula during hemodialysis as well as possibly malfunction of the AV fistula with possible outflow obstruction. 2. Acute blood-loss anemia from number 1, status post transfusion of one unit. 3. Right foot acute osteomyelitis with polymicrobial zari, including Providencia, Citrobacter braakii and Enterococcus faecalis as well as anaerobic Gram-positive cocci. 4. Diabetes mellitus, type 2. 5. Chronic renal failure. 6. End-stage renal disease, on hemodialysis. 7. Hypertension. 8. Congestive heart failure; ejection fraction unknown. 9. History of atrial fibrillation, chronic. 10.History of seizure disorder. 11.History of legal blindness secondary to diabetic retinopathy. 12.History of diabetic neuropathy. 13.Peripheral neuropathy. 14.Gait dysfunction. 15.FULL CODE. RECOMMENDATIONS AND DISCUSSION: In this 69-year-old gentleman who presented with multiple complex medical issues, we will monitor the patient closely, continue the current medications, continue symptomatic treatment. Otherwise at this time we will employ a low-potassium diet. Continue the hemodialysis as outlined by Dr. Castillo. IV antibiotics. Will discuss with Dr. Hodges regarding the outpatient plan, along with the dialysis and the p.o. medication as an option. Once again, the prognosis is extremely guarded. Repeat labs. Further recommendations to follow. MMODL / IJN: [id number] /
[2019-08-26] MEDS: INSULIN DETEMIR (LEVEMIR) 100 UNIT/ML SYR SQ SCH (20:37)
[2019-08-26] MEDS ORDERED: ALBUTEROL NEBULIZED 2.5 MG/3 ML INHALATION STA (21:45)
[2019-08-26] MEDS ORDERED: CALCIUM GLUCONATE 1 GM in SODIUM CHLORIDE 0.9% 100 ML IVPB ONE (22:00)
[2019-08-27] MEDS: ACETAMINOPHEN TAB 325 MG TAB PO PRN ×2 (00:14→19:41)
[2019-08-27] MEDS ORDERED: DEXTROSE 50% SYRINGE 50 ML IVP STA ×2 (01:49→21:57)
[2019-08-27] MEDS ORDERED: INSULIN REGULAR 100 UNIT/ML VIAL IV ONE ×2 (01:49→22:00)
[2019-08-27 07:09] LABS: Glucose,Whole Blood 89 mg/dL (75-99)
[2019-08-27] MEDS: FENOFIBRATE 160 MG TAB PO SCH (07:50)
[2019-08-27] MEDS: CALCIUM CARB-MAG CARB-FOLIC 1 EACH TAB PO SCH ×2 (07:51→16:26)
[2019-08-27] MEDS: METOPROLOL TARTRATE 50 MG TAB PO SCH ×2 (07:51→22:53)
[2019-08-27] MEDS: PANTOPRAZOLE 40 MG TABLET PO SCH (07:51)
[2019-08-27] MEDS: ASPIRIN 81 MG PO SCH (07:51)
[2019-08-27] MEDS: FUROSEMIDE 40 MG TAB PO SCH ×2 (07:51→16:26)
[2019-08-27] MEDS: levOCARNitine (WITH SUGAR) 100 MG/ML BOTTLE PO SCH ×3 (07:52→16:27)
[2019-08-27] MEDS: INSULIN ASPART (NovoLOG) 100 UNIT/ML VIAL SQ SCH ×4 (07:52→23:09)
[2019-08-27] MEDS: HEPARIN SODIUM,PORCINE 5,000 UNIT/ML 1 ML VIAL SQ SCH ×3 (07:53→22:58)
[2019-08-27] MEDS: VIT A,C & E-LUTEIN-MINERALS 1 EACH TAB PO SCH (07:54)
[2019-08-27] MEDS: NON FORMULARY DRUG (Prorenal + D 1 TAB) PO SCH (07:54)
[2019-08-27 08:58] LABS: Potassium 5.8 mmol/L (3.5-5.1)
[2019-08-27] MEDS: SYMBICORT 160-4.5 MCG INHALER INHALATION SCH ×2 (10:12→21:24)
--- NOTE | 2019-08-27 11:12 | P.PN ---
Subjective Patient is seen in follow-up for end-stage renal disease. He is maintained on hemodialysis on Sunday schedule. Denies chest pain or shortness of breath. Patient completed 3 hours of hemodialysis treatment yesterday and his repeat potassium last night was 6. Patient refused to undergo hemodialysis again. Hyperkalemia was medically treated with sodium bicarbonate IV insulin and is 5.8 this morning. Vital signs are stable. General: The patient appeared well nourished and normally developed. HEENT: Head exam is unremarkable. Neck is without jugular venous distension. LUNGS: Lungs are clear to auscultation and percussion. Breath sounds decreased. HEART: Rate and Rhythm are regular. First and second heart sounds normal. No murmurs, rubs or gallops. ABDOMEN: Abdominal exam reveals normal bowel sounds. Non-tender and non- distended. EXTREMITITES: 1+ edema. Wrapped. No drainage noted. Objective - Vital Signs Vital signs: Vital Signs Temp 97.2 F L 08/27/19 05:05 Pulse 66 08/27/19 05:05 Resp 12 08/27/19 05:05 BP 108/56 08/27/19 05:05 Pulse Ox 100 08/27/19 05:05 Intake & Output 08/26/19 08/27/19 08/27/19 18:59 06:59 18:59 Intake Total 160 1600 Balance 160 1600 Weight 115.8 kg 114 kg Intake: Intake, IV Titration 160 100 Amount Calcium Gluconate 1 gm In 100 Sodium Chloride 0.9% 100 ml @ 100 mls/hr IVPB ONCE ONE Rx#:[id number] Calcium Gluconate 1 gm In 110 Sodium Chloride 0.9% 100 ml @ 100 mls/hr IVPB [facility]CE [facility] Rx#:[id number] Cefepime 1 gm In Sodium 50 Chloride 0.9% 50 ml @ 100 mls/hr IVPB DAILY [facility] Rx #:[id number] Hemodialysis 1500 Other: Voiding Method Bedside Commode Bedside Commode Bedside Commode Urinal # Voids 1 1 # Bowel Movements 2 1 - Labs CBC & Chem 7: 08/26/19 06:37 08/27/19 08:16 Labs: Abnormal Lab Results - Last 24 Hours (Table) 08/26/19 08/26/19 08/26/19 Range/Units 13:22 17:00 17:04 Sodium 134 L (137-145) mmol/L Potassium 6.0 H (3.5-5.1) mmol/L Chloride 95 L (98-107) mmol/L BUN 39 H (9-20) mg/dL Creatinine 5.09 H (0.66-1.25) mg/dL Glucose 168 H (74-99) mg/dL POC Glucose (mg/dL) 111 H 185 H (75-99) mg/dL 08/26/19 08/26/19 08/27/19 Range/Units 20:17 21:20 01:10 Sodium (137-145) mmol/L Potassium 6.0 H 5.7 H (3.5-5.1) mmol/L Chloride (98-107) mmol/L BUN (9-20) mg/dL Creatinine (0.66-1.25) mg/dL Glucose (74-99) mg/dL POC Glucose (mg/dL) 195 H (75-99) mg/dL 08/27/19 Range/Units 08:16 Sodium (137-145) mmol/L Potassium 5.8 H (3.5-5.1) mmol/L Chloride 95 L (98-107) mmol/L BUN 47 H (9-20) mg/dL Creatinine 6.38 H (0.66-1.25) mg/dL Glucose (74-99) mg/dL POC Glucose (mg/dL) (75-99) mg/dL Assessment and Plan Plan: Assessment: 1. End-stage renal disease maintained on hemodialysis on Sunday schedule. 2. Chronic kidney disease mineral bone disease maintained on phosphate binders. 3. Bleeding AV fistula currently improved. Using 17-gauge needles. He was evaluated by vascular surgery this admission and plan is for fistulogram outpatient. 4. Bilateral chronic lower extremity wounds maintain on antibiotics. Wound culture positive for Providencia, Citrobacter and enterococcus. Infectious disease following. 5. Insulin-dependent diabetes mellitus. 6. Hypertension with chronic kidney disease. Stable. 7. Anemia of chronic kidney disease. Maintained on Aranesp. 8. Hyperkalemia secondary to chronic kidney disease. Plan: Hemodialysis today. Will use 16-gauge needles. This was cleared by vascular surgery. I will also use a low potassium bath. Target vancomycin level less than 20. Repeat potassium level this evening. Strongly advised the patient to be compliant with his hemodialysis treatments. Risks of hyperkalemia were discussed with patient.
[2019-08-27 11:25] LABS: Glucose,Whole Blood 101 mg/dL (75-99)
[2019-08-27 11:51] LABS: Vancomycin,Random 18.8 ug/mL
[2019-08-27] MEDS: MULTIVITAMINS, THERA 1 EACH TAB PO SCH (11:52)
[2019-08-27] MEDS: CEFEPIME 1 GM in SODIUM CHLORIDE 0.9% 50 ML IVPB SCH (11:52)
[2019-08-27] MEDS: THIAMINE 100 MG TAB PO SCH (11:52)
[2019-08-27] MEDS: FOLIC ACID 1 MG TAB PO SCH (11:52)
[2019-08-27 12:48] LABS: Glucose,Whole Blood 55 mg/dL (75-99)
[2019-08-27 13:27] LABS: Glucose,Whole Blood 75 mg/dL (75-99)
[2019-08-27 13:40] LABS: Glucose,Whole Blood 86 mg/dL (75-99)
[2019-08-27 15:39] LABS: Glucose,Whole Blood 134 mg/dL (75-99)
[2019-08-27] MEDS: metroNIDAZOLE 500 MG TAB PO SCH ×2 (16:26→22:53)
--- NOTE | 2019-08-27 16:35 | PN ---
PROGRESS NOTE DATE OF SERVICE: 08/27/2019 REASON FOR FOLLOWUP: Right foot wound and osteomyelitis. INTERVAL HISTORY: The patient is currently afebrile. The patient is feeling better today. Denies having any chest pain. No shortness of breath or cough. No abdominal pain or pain to the right foot area. PHYSICAL EXAMINATION: Blood pressure is 94/52 with a pulse of 51, temperature 97.5, he is 100% on 2 L nasal cannula. General description is an elderly male up in the chair in no distress. RESPIRATORY SYSTEM: Unlabored breathing, decreased breath sounds in the base, with no wheeze. HEART: S1, S2. Regular rate and rhythm. ABDOMEN: Soft. No tenderness. Right foot wound dressed. No obvious drainage on the dressing. LABS: Creatinine 6.38. DIAGNOSTIC IMPRESSION AND PLAN: Patient with right diabetic foot wound with secondary osteomyelitis, acute culture positive for Providencia, Citrobacter, Enterococcus faecalis and anaerobes. The patient is currently on vancomycin to cover for the Enterococcus. Will switch him over to oral Cipro and Flagyl to continue for a total of 6 weeks and close outpatient followup. MMODL / IJN: [id number] /
[2019-08-27 16:57] LABS: Glucose,Whole Blood 126 mg/dL (75-99)
[2019-08-27] MEDS ORDERED: VANCOMYCIN 1,750 MG in SODIUM CHLORIDE 0.9% 500 ML 500 ML IVPB ONE (17:00)
[2019-08-27] MEDS ORDERED: SODIUM BICARB 8.4% 50 ML SYR (1 MEQ/ML) IV STA (21:57)
[2019-08-27] MEDS: INSULIN DETEMIR (LEVEMIR) 100 UNIT/ML SYR SQ SCH (22:54)
[2019-08-27 23:01] LABS: Glucose,Whole Blood 247 mg/dL (75-99)
--- NOTE | 2019-08-27 23:14 | PN ---
PROGRESS NOTE DATE OF SERVICE: 08/27/2019 This 69-year-old gentleman who was admitted with multiple medical problems also had spontaneous bleeding from the AV fistula. The patient also had hyperkalemia. Nephrology is performing hemodialysis. No chest pain. No palpitations. No fever. PHYSICAL EXAMINATION: Alert and oriented x3. Pulse 65, blood pressure 105/61, respiration 20, temperature 97.6, pulse ox 100% on 3 L. HEENT: Conjunctivae normal. NECK: No jugular venous distention. CARDIOVASCULAR SYSTEM: S1, S2 muffled. RESPIRATORY SYSTEM: Breath sounds diminished at the bases. No rhonchi. No crackles. ABDOMEN: Soft, non-tender. LEGS: No edema. No swelling. NERVOUS SYSTEM: No focal deficit. LABS: WBC 8.3, hemoglobin 9.2 and sodium 138, potassium 5.7. ASSESSMENT: 1. Spontaneous bleeding from the AV fistula during hemodialysis as well as possible malfunction of the AV fistula with possible outflow obstruction per Vascular, present on admission. 2. Acute blood-loss anemia from number 1, status post transfusion of one unit. 3. Right foot acute osteomyelitis with polymicrobial zari, including Providencia, Citrobacter braakii, Enterococcus faecalis as well as anaerobes, Gram-positive cocci. 4. Hyperkalemia, severe. 5. Diabetes mellitus, type 2. 6. End-stage renal disease, on hemodialysis for chronic renal disease. 7. Hypertension. 8. Congestive heart failure; ejection fraction unknown. 9. History of atrial fibrillation, chronic. 10.History of seizure disorder. 11.History of legal blindness secondary to diabetic retinopathy. 12.History of diabetic neuropathy. 13.Peripheral neuropathy. 14.Gait dysfunction. 15.FULL CODE. RECOMMENDATIONS AND DISCUSSION: In this 69-year-old gentleman who presented with multiple medical issues, we will monitor the patient closely, continue the current medications, continue with hemodialysis, low-potassium diet. Otherwise, the patient is improving. The patient will be discharged home if okay with Nephrology. Guarded prognosis. Further recommendations to follow. MMODL / IJN: [id number] /
[2019-08-28] MEDS: ACETAMINOPHEN TAB 325 MG TAB PO PRN (04:00)
[2019-08-28 06:59] LABS: Glucose,Whole Blood 169 mg/dL (75-99)
[2019-08-28] MEDS: NON FORMULARY DRUG (Prorenal + D 1 TAB) PO SCH (07:44)
[2019-08-28] MEDS: CALCIUM CARB-MAG CARB-FOLIC 1 EACH TAB PO SCH (08:05)
[2019-08-28] MEDS: VIT A,C & E-LUTEIN-MINERALS 1 EACH TAB PO SCH (08:06)
[2019-08-28] MEDS: PANTOPRAZOLE 40 MG TABLET PO SCH (08:06)
[2019-08-28] MEDS: FOLIC ACID 1 MG TAB PO SCH (08:06)
[2019-08-28] MEDS: INSULIN ASPART (NovoLOG) 100 UNIT/ML VIAL SQ SCH ×2 (08:06→11:09)
[2019-08-28] MEDS: METOPROLOL TARTRATE 50 MG TAB PO SCH (08:06)
[2019-08-28] MEDS: FUROSEMIDE 40 MG TAB PO SCH (08:07)
[2019-08-28] MEDS: levOCARNitine (WITH SUGAR) 100 MG/ML BOTTLE PO SCH ×2 (08:07→11:16)
[2019-08-28] MEDS: ASPIRIN 81 MG PO SCH (08:07)
[2019-08-28] MEDS: FENOFIBRATE 160 MG TAB PO SCH (08:07)
[2019-08-28] MEDS: metroNIDAZOLE 500 MG TAB PO SCH (08:08)
[2019-08-28] MEDS: HEPARIN SODIUM,PORCINE 5,000 UNIT/ML 1 ML VIAL SQ SCH (08:08)
[2019-08-28 08:20] LABS: Calcium 8.8 mg/dL (8.4-10.2); Potassium 5.8 mmol/L (3.5-5.1)
[2019-08-28] MEDS: SYMBICORT 160-4.5 MCG INHALER INHALATION SCH (08:47)
[2019-08-28] MEDS ORDERED: CIPROFLOXACIN HCL 500 MG TAB PO SCH (09:00)
--- NOTE | 2019-08-28 10:37 | P.PN ---
Subjective Patient is seen in follow-up for end-stage renal disease. He is maintained on hemodialysis on Sunday schedule. Denies chest pain or shortness of breath. Patient completed 3 hours of hemodialysis treatment yesterday and his repeat potassium last night was again 6. This was medically treated and came down to 5.3 and is up to 5.8 this morning. He did have some bleeding even with 17-gauge needles yesterday therefore larger needle was not used. Vital signs are stable. General: The patient appeared well nourished and normally developed. HEENT: Head exam is unremarkable. Neck is without jugular venous distension. LUNGS: Lungs are clear to auscultation and percussion. Breath sounds decreased. HEART: Rate and Rhythm are regular. First and second heart sounds normal. No murmurs, rubs or gallops. ABDOMEN: Abdominal exam reveals normal bowel sounds. Non-tender and non- distended. EXTREMITITES: 1+ edema. Wrapped. No drainage noted. Objective - Vital Signs Vital signs: Vital Signs Temp 98.8 F 08/28/19 04:13 Pulse 63 08/28/19 04:13 Resp 18 08/28/19 04:13 BP 106/50 08/28/19 04:13 Pulse Ox 99 08/28/19 04:13 Intake & Output 08/27/19 08/28/19 08/28/19 18:59 06:59 18:59 Intake Total 50 1040 Output Total 1999 Balance -1949 1040 Weight 114.2 kg Intake: Intake, IV Titration 50 500 Amount Cefepime 1 gm In Sodium 50 Chloride 0.9% 50 ml @ 100 mls/hr IVPB DAILY [facility] Rx #:[id number] Vancomycin 1,750 mg In 500 Sodium Chloride 0.9% 500 ml 500 ml @ 167 mls/hr IVPB ONCE ONE Rx#: [id number] Oral 540 Output: Hemodialysis 1999 Other: Voiding Method Bedside Commode Bedside Commode Bedside Commode # Bowel Movements 2 - Labs CBC & Chem 7: 08/26/19 06:37 08/28/19 06:43 Labs: Abnormal Lab Results - Last 24 Hours (Table) 08/27/19 08/27/19 08/27/19 Range/Units 11:22 12:47 15:37 Potassium (3.5-5.1) mmol/L Chloride (98-107) mmol/L Carbon Dioxide (22-30) mmol/L BUN (9-20) mg/dL Creatinine (0.66-1.25) mg/dL Glucose (74-99) mg/dL POC Glucose (mg/dL) 101 H 55 L 134 H (75-99) mg/dL 08/27/19 08/27/19 08/27/19 Range/Units 16:56 17:58 22:52 Potassium 6.0 H (3.5-5.1) mmol/L Chloride (98-107) mmol/L Carbon Dioxide (22-30) mmol/L BUN (9-20) mg/dL Creatinine (0.66-1.25) mg/dL Glucose (74-99) mg/dL POC Glucose (mg/dL) 126 H 247 H (75-99) mg/dL 08/28/19 08/28/19 08/28/19 Range/Units 00:53 06:43 06:58 Potassium 5.3 H 5.8 H (3.5-5.1) mmol/L Chloride 94 L (98-107) mmol/L Carbon Dioxide 32 H (22-30) mmol/L BUN 41 H (9-20) mg/dL Creatinine 5.23 H (0.66-1.25) mg/dL Glucose 156 H (74-99) mg/dL POC Glucose (mg/dL) 169 H (75-99) mg/dL Assessment and Plan Plan: Assessment: 1. End-stage renal disease maintained on hemodialysis on Sunday schedule. 2. Chronic kidney disease mineral bone disease maintained on phosphate binders. 3. Bleeding AV fistula currently improved. Using 17-gauge needles. He was evaluated by vascular surgery this admission and plan is for fistulogram outpatient. 4. Bilateral chronic lower extremity wounds maintain on antibiotics. Wound culture positive for Providencia, Citrobacter and enterococcus. Infectious disease following. 5. Insulin-dependent diabetes mellitus. 6. Hypertension with chronic kidney disease. Stable. 7. Anemia of chronic kidney disease. Maintained on Aranesp. 8. Hyperkalemia secondary to chronic kidney disease. Plan: Patient tolerated hemodialysis yesterday with 17-gauge needles but did have some bleeding. Therefore larger needle was not used. He is refusing to undergo hemodialysis today. It was also discussed with him to get a permacath placed temporarily for dialysis treatments to get better clearance until he follows up with vascular surgery outpatient for fistulogram and further intervention if needed on the AV fistula. However the patient is refusing permacath placement and is also refusing hemodialysis treatment today. Patient states he will go to his outpatient treatment tomorrow and wants to be discharged today. I will give him 10 units of IV insulin with an amp of D50 as well as 2 A of bicarb IV push prior to discharge. Target vancomycin level less than 20. Strongly advised the patient to be compliant with his hemodialysis treatments. Risks of hyperkalemia were discussed with patient.
[2019-08-28] MEDS ORDERED: SODIUM BICARB 8.4% 50 ML SYR (1 MEQ/ML) IV STA (10:59)
[2019-08-28] MEDS ORDERED: DEXTROSE 50% SYRINGE 50 ML IVP STA (11:00)
[2019-08-28 11:04] LABS: Glucose,Whole Blood 110 mg/dL (75-99)
[2019-08-28] MEDS ORDERED: INSULIN REGULAR 100 UNIT/ML VIAL IV ONE (11:15)
[2019-08-28] MEDS: THIAMINE 100 MG TAB PO SCH (11:16)
[2019-08-28] MEDS: MULTIVITAMINS, THERA 1 EACH TAB PO SCH (11:16)
[2019-08-28 12:15] VITALS: BP 138/75; PULSE 55; RESP 20; TEMP 97.8
--- NOTE | 2019-08-28 13:52 | PN ---
PROGRESS NOTE DATE OF SERVICE: 08/28/2019 REASON FOR FOLLOWUP: Right diabetic foot wound with underlying osteomyelitis with Providencia Citrobacter to go with anaerobes and the patient is currently afebrile. He is currently frustrated for him not be able to go home. No chest pain. No shortness of breath or cough. No nausea, no vomiting. No abdominal pain, no diarrhea. PHYSICAL EXAMINATION: Blood pressure 130/75 with a pulse of 85, temperature is 97.8, he is 100% on 3 L nasal cannula. General description is an elderly male, up in the chair in no distress. RESPIRATORY SYSTEM: Unlabored breathing, clear to auscultation anteriorly. HEART: S1, S2. Regular rate and rhythm. ABDOMEN: Soft, no tenderness. LABS: BUN 41, creatinine 5.23. DIAGNOSTIC IMPRESSION AND PLAN: Patient with acute right foot osteomyelitis, underlying diabetes and multiple pathogen. Currently covered with vancomycin, Cipro, Flagyl for a total of 6 weeks. Local wound care per the wound care team. Continue supportive care. MMODL / IJN: [id number] /
--- NOTE | 2019-08-28 14:14 | P.DS ---
Providers Date of admission: 08/20/19 01:27 Expected date of discharge: 08/28/19 Attending physician: Germain Dowd Consults: 08/20/19 01:26 Consult Physician Routine Consulting Provider: Troy Olvera Consult Reason/Comments: Bleeding AV fistula Do you want consulting provider notified?: Already Contacted Consult Physician Routine Consulting Provider: Janette Greenberg Consult Reason/Comments: ESRD MWF Do you want consulting provider notified?: Yes 08/21/19 11:29 Consult Physician Routine Consulting Provider: Whitney Hodges Consult Reason/Comments: Right foot osteomyelitis Do you want consulting provider notified?: Yes 08/21/19 11:39 Consult Physician Routine Consulting Provider: Whitney Hodges Consult Reason/Comments: Acute osteomyelitis right fifth metatarsal Do you want consulting provider notified?: Yes 08/23/19 11:11 Consult Physician Urgent Consulting Provider: Andrzej Pichardo Consult Reason/Comments: A-fib, Run of V-tach, 2 second pause Do you want consulting provider notified?: Yes 08/26/19 08:08 Consult Physician Routine Consulting Provider: Criselda Arguelles Consult Reason/Comments: malfunctioning AV fistula Do you want consulting provider notified?: Yes Primary care physician: Nell Rosen [facility] Course: Final diagnosis Spontaneous bleeding from the AV fistula during hemodialysis as well as possible malfunction of the AV fistula with possible outflow obstruction per vascular, present on admission Acute blood loss anemia from assessment #1, status post transfusion of 1 unit PRBCs Right foot acute osteomyelitis with polymicrobial zari, including potential, Citrobacter braakii, enterococcus faecalis as as well as anaerobes, gram positive cocci Hyperkalemia, severe Diabetes mellitus type 2 End-stage renal disease, on hemodialysis for chronic renal disease Hypertension Congestive heart failure, ejection fraction unknown History of atrial fibrillation, chronic History of seizure disorder History of legal blindness secondary to diabetic retinopathy History of diabetic neuropathy Peripheral neuropathy Gait dysfunction Full code Discharge disposition Patient is being discharged in a stable condition with guarded prognosis to home and will follow-up with Dr. Rosen upon discharge. Patient will continue with home care in the outpatient setting. Patient to follow-up with nephrology, hemodialysis, and the wound care center in the outpatient setting. Patient will also continue on an additional 6 weeks of oral antibiotics in the form of Cipro and Flagyl. Total time taken is 35 minutes. History of present illness This is a 69-year-old male who was recently admitted with spontaneous bleeding from the AV fistula, hyperkalemia, and hemodialysis dependent and was being closely monitored. Patient also found to have right foot acute osteomyelitis and will be requiring outpatient oral antibiotics per infectious disease recommendations for at least another 6 weeks. Multiple medical consultations following including nephrology, infectious disease, and vascular surgery. During hospitalization patient received hemodialysis and vascular surgery recommending a change in catheters for dialysis although patient is refusing at this time. Today patient's potassium was slightly elevated at 5.8 and was given a dose of dextrose and insulin IV push. Patient is refusing another treatment of hemodialysis today and will continue with his regular schedule of Sunday/Sunday/Sunday. Patient will also continue with home care in the outpatient setting. Patient will need to follow a low potassium diet as well. Patient will follow-up with nephrology in the outpatient setting. Patient was treated with IV vancomycin during hospitalization. Patient will continue on oral antibiotics in the form of Cipro and Flagyl for an additional 6 weeks in the outpatient setting. She does continue with local wound care and follow-up at the wound care center in the outpatient setting. Currently no reports of chest pain, shortness of breath, or palpitations. Patient is afebrile. No reports of nausea or vomiting and patient is tolerating diet. Guarded prognosis area On exam vital signs are stable. Temp is 97.8F, pulse is 55, respirations are 20, blood pressure is 138/75, oxygen saturation is 100% on 3 L via nasal cannula. Cardio S1, S2 are muffled. Respiratory system shows diminished breath sounds at the bases with some scattered rhonchi noted. Abdomen is soft, obese, and nontender. Nervous system shows no focal deficits. Please refer to medication reconciliation sheet for a list of medications. Patient Condition at Discharge: Stable Plan - Discharge Summary New Discharge Prescriptions: New Darbepoetin Dinh [Aranesp] 40 mcg SQ Q7D syringe Ciprofloxacin HCl [Cipro] 500 mg PO DAILY 42 Days #42 tab metroNIDAZOLE [Flagyl] 500 mg PO TID 42 Days #126 tab Folic Acid 1 mg PO DAILY@1200 30 Days #30 tab Multivitamins, Thera [Multivitamin (formulary)] 1 each PO DAILY@1200 30 Days #30 tab Thiamine [Vitamin B-1] 100 mg PO DAILY@1200 30 Days #30 tab Continue NIFEdipine [NIFEdipine ER] 60 mg PO DAILY Etanercept [Enbrel] 50 mg SQ LUU Gemfibrozil [Lopid] 600 mg PO BID Aspirin EC [Ecotrin Low Dose] 81 mg PO DAILY Budesonide-Formot 160-4.5 Mcg [Symbicort 160-4.5 Mcg Inhaler] 2 puff INHALATION RT-BID Omeprazole 40 mg PO DAILY Metoprolol Tartrate [Lopressor] 50 mg PO BID Calcium Acetate [PhosLo] 2,001 mg PO TID-W/MEALS Magnebind 250/300mg 3 tab PO BID-W/MEALS Prorenal + D 1 tab PO DAILY Albuterol Nebulized [Ventolin Nebulized] 2.5 mg INHALATION RT-TID Insulin Glargine,Hum.rec.anlog [Lantus Solostar] 35 unit SQ HS levOCARNitine [Levocarnitine] 330 mg PO TID-W/MEALS Acetaminophen Tab [Tylenol] 650 mg PO Q6HR PRN tab PRN Reason: Mild Pain Or Fever > 100.5 ALPRAZolam [Xanax] 0.25 mg PO TID PRN 3 Days #9 tab PRN Reason: anxiety Calcium Acetate [PhosLo] 667 mg PO DAILY PRN PRN Reason: with snack Furosemide [Lasix] 40 mg PO BID Vit C/E/Zn/Coppr/Lutein/Zeaxan [Preservision Areds 2 Softgel] 1 cap PO DAILY Insulin Glargine,Hum.rec.anlog [Lantus Solostar] See Protocol SQ HS PRN PRN Reason: HIGH BLOOD SUGAR Insulin Lispro [humaLOG Kwikpen] See Protocol SQ AC-TID PRN PRN Reason: SUGAR ABOVE 150 Discharge Medication List Etanercept [Enbrel] 50 mg SQ LUU 06/12/14 [History] NIFEdipine [NIFEdipine ER] 60 mg PO DAILY 06/12/14 [History] Aspirin EC [Ecotrin Low Dose] 81 mg PO DAILY 07/31/18 [History] Gemfibrozil [Lopid] 600 mg PO BID 07/31/18 [History] Budesonide-Formot 160-4.5 Mcg [Symbicort 160-4.5 Mcg Inhaler] 2 puff INHALATION RT-BID 02/26/19 [History] Calcium Acetate [PhosLo] 2,001 mg PO TID-W/MEALS 02/26/19 [History] Magnebind 250/300mg 3 tab PO BID-W/MEALS 02/26/19 [History] Metoprolol Tartrate [Lopressor] 50 mg PO BID 02/26/19 [History] Omeprazole 40 mg PO DAILY 02/26/19 [History] Prorenal + D 1 tab PO DAILY 02/26/19 [History] Albuterol Nebulized [Ventolin Nebulized] 2.5 mg INHALATION RT-TID 03/17/19 [History] Insulin Glargine,Hum.rec.anlog [Lantus Solostar] 35 unit SQ HS 06/16/19 [History] levOCARNitine [Levocarnitine] 330 mg PO TID-W/MEALS 06/27/19 [History] ALPRAZolam [Xanax] 0.25 mg PO TID PRN 3 Days #9 tab 07/09/19 [Rx] Acetaminophen Tab [Tylenol] 650 mg PO Q6HR PRN tab 07/09/19 [Rx] Calcium Acetate [PhosLo] 667 mg PO DAILY PRN 08/20/19 [History] Furosemide [Lasix] 40 mg PO BID 08/20/19 [History] Insulin Glargine,Hum.rec.anlog [Lantus Solostar] See Protocol SQ HS PRN 08/20/19 [History] Insulin Lispro [humaLOG Kwikpen] See Protocol SQ AC-TID PRN 08/20/19 [History] Vit C/E/Zn/Coppr/Lutein/Zeaxan [Preservision Areds 2 Softgel] 1 cap PO DAILY 08/20/19 [History] Ciprofloxacin HCl [Cipro] 500 mg PO DAILY 42 Days #42 tab 08/28/19 [Rx] Darbepoetin Dinh [Aranesp] 40 mcg SQ Q7D syringe 08/28/19 [Rx] Folic Acid 1 mg PO DAILY@1200 30 Days #30 tab 08/28/19 [Rx] Multivitamins, Thera [Multivitamin (formulary)] 1 each PO DAILY@1200 30 Days #30 tab 08/28/19 [Rx] Thiamine [Vitamin B-1] 100 mg PO DAILY@1200 30 Days #30 tab 08/28/19 [Rx] metroNIDAZOLE [Flagyl] 500 mg PO TID 42 Days #126 tab 08/28/19 [Rx] Follow up Appointment(s)/Referral(s): Nell Rosen MD [Primary Care Provider] - 1-2 days (Staff unable to reach office at time of discharge please call Sunday 08/27 to set up a follow up appointment) Troy Olvera DO [STAFF PHYSICIAN] - 1-2 Days (Staff unable to reach office at time of discharge please call Sunday 08/27 to set up a follow up appointment) [facility], [NON-STAFF] - 1 Week [facility], [REFERRING] - 1 Week Alpesh Figueroa [NON-STAFF] - As Needed Patient Instructions/Handouts: Dialysis Diet (DC), Osteomyelitis (DC), Anemia (DC) Activity/Diet/Wound Care/Special Instructions: Activity Limited until follow-up Continue with hemodialysis as scheduled Continue with antibiotics until finished Follow up with primary care provider in the outpatient setting Follow-up with nephrology Follow-up with the wound care center Continue consistent carbohydrate diet and renal diet with low potassium and low phosphorus Continue with home care Discharge Disposition: HOME WITH HOME HEALTH SERVICES
[2019-08-28 14:38] VITALS: BMI 31.4
== END 2019-08-28 15:00 | disposition home health service (06) | DRG 314 ==
LOC: EC 00:30 → 2SICU 01:27 → 3SCARD 05:52 → 5NMEDONC 09:34
PROVIDERS: ADMIT Hospitalist; ATTEND Hospitalist
PROC: 30233N1 Transfusion of Nonautologous Red Blood Cells into Peripheral Vein, Percutaneous Approach (ICD-10-PCS; principal; 2019-08-20)
PROC: 5A1D70Z Performance of Urinary Filtration, Intermittent, Less than 6 Hours Per Day (ICD-10-PCS; 2019-08-21)
DX: T82.838A Hemorrhage due to vascular prosthetic devices, implants and grafts, initial encounter (principal); N18.6 End stage renal disease; M86.171 Other acute osteomyelitis, right ankle and foot; R78.81 Bacteremia; D62 Acute posthemorrhagic anemia; I13.2 Hypertensive heart and chronic kidney disease with heart failure and with stage 5 chronic kidney disease, or end stage renal disease; L97.518 Non-pressure chronic ulcer of other part of right foot with other specified severity; L97.411 Non-pressure chronic ulcer of right heel and midfoot limited to breakdown of skin; L97.821 Non-pressure chronic ulcer of other part of left lower leg limited to breakdown of skin; T82.510A Breakdown (mechanical) of surgically created arteriovenous fistula, initial encounter; Z11.59 Encounter for screening for other viral diseases; I50.9 Heart failure, unspecified; E11.319 Type 2 diabetes mellitus with unspecified diabetic retinopathy without macular edema; D63.1 Anemia in chronic kidney disease; E83.9 Disorder of mineral metabolism, unspecified; L97.512 Non-pressure chronic ulcer of other part of right foot with fat layer exposed; L97.522 Non-pressure chronic ulcer of other part of left foot with fat layer exposed; E11.40 Type 2 diabetes mellitus with diabetic neuropathy, unspecified; I95.9 Hypotension, unspecified; E11.22 Type 2 diabetes mellitus with diabetic chronic kidney disease; E11.621 Type 2 diabetes mellitus with foot ulcer; E11.69 Type 2 diabetes mellitus with other specified complication; E11.51 Type 2 diabetes mellitus with diabetic peripheral angiopathy without gangrene; M06.9 Rheumatoid arthritis, unspecified; I48.0 Paroxysmal atrial fibrillation; Z99.2 Dependence on renal dialysis; Z79.4 Long term (current) use of insulin; J45.909 Unspecified asthma, uncomplicated; M19.90 Unspecified osteoarthritis, unspecified site; K21.9 Gastro-esophageal reflux disease without esophagitis; H54.8 Legal blindness, as defined in USA; F41.9 Anxiety disorder, unspecified; F32.9 Major depressive disorder, single episode, unspecified; Y84.1 Kidney dialysis as the cause of abnormal reaction of the patient, or of later complication, without mention of misadventure at the time of the procedure; B95.2 Enterococcus as the cause of diseases classified elsewhere; R26.9 Unspecified abnormalities of gait and mobility; Y71.2 Prosthetic and other implants, materials and accessory cardiovascular devices associated with adverse incidents; E87.5 Hyperkalemia; E66.9 Obesity, unspecified; E78.5 Hyperlipidemia, unspecified; Z71.3 Dietary counseling and surveillance; Z68.31 Body mass index [BMI] 31.0-31.9, adult; Z79.899 Other long term (current) drug therapy; Z79.82 Long term (current) use of aspirin; Z79.51 Long term (current) use of inhaled steroids; Z88.2 Allergy status to sulfonamides; Z87.01 Personal history of pneumonia (recurrent); Z86.19 Personal history of other infectious and parasitic diseases; Z87.891 Personal history of nicotine dependence; Z98.890 Other specified postprocedural states; Z98.42 Cataract extraction status, left eye; Z98.41 Cataract extraction status, right eye; Z86.010 Personal history of colon polyps; Z83.3 Family history of diabetes mellitus; Z80.9 Family history of malignant neoplasm, unspecified; Z86.69 Personal history of other diseases of the nervous system and sense organs; Z91.19 Patient's noncompliance with other medical treatment and regimen
CPT/HCPCS: 12001; 36415; 36430; 80048; 80053; 80202; 80320; 82150; 83605; 83690; 83735; 84132; 84484; 85025; 85610; 85652; 85730; 86140; 86850; 86900; 86901; 86920; 87070; 87075; 87077; 87186; 87205; 87635; 90935; 93005; 94640; 94644; 99285

== ENCOUNTER 2019-09-18 12:53 | Observation (INO) | payer MEDICARE ==
--- NOTE | 2019-09-18 13:35 | ED ---
General Adult HPI - General Chief complaint: Recheck/Abnormal Lab/Rx Stated complaint: Fluid in lungs Time Seen by Provider: 09/18/19 13:05 Source: patient, RN notes reviewed Mode of arrival: wheelchair Limitations: no limitations - History of Present Illness Initial comments: Patient is a pleasant 69-year-old male presenting to the emergency Department with complaints of dyspnea. Symptoms have been present since he left the hospital last month ago. Patient has had fluid drained from his lungs previously. Patient went for chest x-ray today as an outpatient and was told to come to the emergency department secondary to increase fluid. No pain. No fevers. No cough. - Related Data Home Medications Medication Instructions Recorded Confirmed Etanercept [Enbrel] 50 mg SQ LUU 06/12/14 08/20/19 NIFEdipine [NIFEdipine ER] 60 mg PO DAILY 06/12/14 08/20/19 Aspirin EC [Ecotrin Low Dose] 81 mg PO DAILY 07/31/18 08/20/19 Gemfibrozil [Lopid] 600 mg PO BID 07/31/18 08/20/19 Budesonide-Formot 160-4.5 Mcg 2 puff INHALATION RT-BID 02/26/19 08/20/19 [Symbicort 160-4.5 Mcg Inhaler] Calcium Acetate [PhosLo] 2,001 mg PO TID-W/MEALS 02/26/19 08/20/19 Magnebind 250/300mg 3 tab PO BID-W/MEALS 02/26/19 08/20/19 Metoprolol Tartrate [Lopressor] 50 mg PO BID 02/26/19 08/20/19 Omeprazole 40 mg PO DAILY 02/26/19 08/20/19 Prorenal + D 1 tab PO DAILY 02/26/19 08/20/19 Albuterol Nebulized [Ventolin 2.5 mg INHALATION RT-TID 03/17/19 08/20/19 Nebulized] Insulin Glargine,Hum.rec.anlog 35 unit SQ HS 06/16/19 08/20/19 [Lantus Solostar] levOCARNitine [Levocarnitine] 330 mg PO TID-W/MEALS 06/27/19 08/20/19 Calcium Acetate [PhosLo] 667 mg PO DAILY PRN 08/20/19 08/20/19 Furosemide [Lasix] 40 mg PO BID 08/20/19 08/20/19 Insulin Glargine,Hum.rec.anlog See Protocol SQ HS PRN 08/20/19 08/20/19 [Lantus Solostar] Insulin Lispro [humaLOG Kwikpen] See Protocol SQ AC-TID PRN 08/20/19 08/20/19 Vit C/E/Zn/Coppr/Lutein/Zeaxan 1 cap PO DAILY 08/20/19 08/20/19 [Preservision Areds 2 Softgel] Vancomycin 1,000 mg IVPB DIRECTED 09/18/19 09/18/19 Previous Rx's Medication Instructions Recorded ALPRAZolam [Xanax] 0.25 mg PO TID PRN 3 Days #9 tab 07/09/19 Acetaminophen Tab [Tylenol] 650 mg PO Q6HR PRN tab 07/09/19 Ciprofloxacin HCl [Cipro] 500 mg PO DAILY 42 Days #42 tab 08/28/19 Darbepoetin Dinh [Aranesp] 40 mcg SQ Q7D syringe 08/28/19 Folic Acid 1 mg PO DAILY@1200 30 Days #30 tab 08/28/19 Multivitamins, Thera [Multivitamin 1 each PO DAILY@1200 30 Days #30 08/28/19 (formulary)] tab Thiamine [Vitamin B-1] 100 mg PO DAILY@1200 30 Days #30 08/28/19 tab metroNIDAZOLE [Flagyl] 500 mg PO TID 42 Days #126 tab 08/28/19 Allergies Allergy/AdvReac Type Severity Reaction Status Date / Time sulfamethoxazole AdvReac Unknown Nausea & Verified 09/18/19 13:34 [From Bactrim] Vomiting trimethoprim [From Bactrim] AdvReac Unknown Nausea & Verified 09/18/19 13:34 Vomiting Review of Systems ROS Statement: Those systems with pertinent positive or pertinent negative responses have been documented in the HPI. ROS Other: All systems not noted in ROS Statement are negative. Constitutional: Denies: fever Eyes: Denies: eye pain ENT: Denies: ear pain Respiratory: Reports: dyspnea. Denies: cough Cardiovascular: Denies: chest pain Endocrine: Denies: fatigue Gastrointestinal: Denies: abdominal pain Genitourinary: Denies: dysuria Musculoskeletal: Denies: back pain Skin: Denies: rash Neurological: Denies: weakness Past Medical History Past Medical History: Atrial Fibrillation, Asthma, Heart Failure, Diabetes Mellitus, Dialysis, Eye Disorder, GERD/Reflux, Hypertension, Osteoarthritis (OA), Pneumonia, Renal Disease, Rheumatoid Arthritis (RA), Seizure Disorder Additional Past Medical History / Comment(s): ESRD with hemodialysis, mineral bone disease, chronic anemia, IDDM type II, diabetic retinopathy-"legally blind", chronic neuropathy occasionally in toes bilateral feet and left leg, bilateral lower leg edema, cellulitis bilateral lower legs, past leg/foot wounds and currently has left medial leg wounds that have scabbed over and no longer goes to [facility], paroxysmal Afib, 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 History of Any Multi-Drug Resistant Organisms: None Reported Past Surgical History: Hernia Repair, Orthopedic Surgery Additional Past Surgical History / Comment(s): Bilateral cataract surgery, insertion dialysis catheter left arm then had a procedure done to dialysis catheter at [facility]-cannot recall exactly what was done, PICC line insertion/removed, bilateral inguinal hernina repairs, colonoscopy/polypectomy, R shoulder rotator cuff repair, debridements bilateral feet. Past Anesthesia/Blood Transfusion Reactions: No Reported Reaction Additional Past Anesthesia/Blood Transfusion Reaction / Comment(s): Pt received blood in past without reaction. Past Psychological History: Anxiety, Depression Smoking Status: Former smoker Past Alcohol Use History: None Reported Past Drug Use History: None Reported - Past Family History Mother Family Medical History: Diabetes Mellitus Father Family Medical History: Cancer Additional Family Medical History / Comment(s): Metastatic cancer. Pt cannot recall primary. General Exam Limitations: no limitations General appearance: alert, in no apparent distress Head exam: Present: normocephalic Eye exam: Present: normal appearance ENT exam: Present: normal oropharynx Neck exam: Present: normal inspection Respiratory exam: Present: decreased breath sounds (Lung sounds absent on the left) Cardiovascular Exam: Present: regular rate, normal rhythm GI/Abdominal exam: Present: soft. Absent: tenderness Extremities exam: Present: pedal edema. Absent: calf tenderness Neurological exam: Present: alert Psychiatric exam: Present: normal affect, normal mood Skin exam: Present: normal color Course Vital Signs 09/18/19 09/18/19 12:56 13:13 Temperature 97.4 F L Pulse Rate 75 Respiratory 18 18 Rate Blood Pressure 132/62 O2 Sat by Pulse 97 Oximetry Medical Decision Making - Medical Decision Making Case was discussed with Dr. Arnold, covering for Dr. Wen, who will admit. - Radiology Data Radiology results: image reviewed (Chest x-ray shows large left effusion causing whiteout appearance with cardiomediastinal shift towards the right) Disposition Clinical Impression: Pleural effusion Disposition: ADMITTED IP TO THIS HOSP Is patient prescribed a controlled substance at d/c from ED?: No Referrals: Nell Rosen MD [Primary Care Provider] - 1-2 days Decision Time: 13:41
[2019-09-18] MEDS ORDERED: NALOXONE 0.4 MG/ML 1 ML VIAL IV PRN (13:37)
[2019-09-18 13:58] LABS: Basophils % (A) 1 %; Eosinophils # (A) 0.2 k/uL (0-0.7); Eosinophils % (A) 4 %; HCT 35.4 % (39.0-53.0); HGB 10.9 gm/dL (13.0-17.5); Hypochromasia Moderate; Lymphocytes # (A) 0.8 k/uL (1.0-4.8); Lymphocytes % (A) 12 %; MCH 32.3 pg (25.0-35.0); MCHC 30.9 g/dL (31.0-37.0); MCV 104.7 fL (80.0-100.0); Macrocytosis Moderate; Mean Platelet Volume 8.7; Monocytes # (A) 0.4 k/uL (0-1.0); Monocytes % (A) 6 %; Neutrophils # (A) 5.3 k/uL (1.3-7.7); Neutrophils % (A) 77 %; Platelet Count 185 k/uL (150-450); RBC 3.39 m/uL (4.30-5.90); RDW 15.6 % (11.5-15.5); WBC 6.8 k/uL (3.8-10.6)
[2019-09-18 14:06] LABS: Partial Thromboplastin Time 22.7 sec (22.0-30.0); Prothrombin Time 10.3 sec (9.0-12.0)
[2019-09-18 14:09] LABS: Albumin 3.8 g/dL (3.5-5.0); Calcium 9.4 mg/dL (8.4-10.2); Potassium 5.1 mmol/L (3.5-5.1); Total Bilirubin 0.5 mg/dL (0.2-1.3); Total Protein 7.6 g/dL (6.3-8.2)
[2019-09-18 16:41] LABS: Glucose,Whole Blood 280 mg/dL (75-99)
[2019-09-18] MEDS ORDERED: ALPRAZolam 0.25 MG TAB PO PRN (16:42)
[2019-09-18] MEDS ORDERED: CALCIUM ACETATE 667 MG TAB PO PRN (16:42)
[2019-09-18] MEDS: INSULIN ASPART (NovoLOG) 100 UNIT/ML VIAL SQ SCH ×2 (17:20→20:36)
[2019-09-18] MEDS: MAGNEBIND PO SCH (17:21)
[2019-09-18] MEDS: levOCARNitine (WITH SUGAR) 100 MG/ML BOTTLE PO SCH (17:21)
[2019-09-18] MEDS: FUROSEMIDE 40 MG TAB PO SCH (17:21)
[2019-09-18] MEDS: SYMBICORT 160-4.5 MCG INHALER INHALATION SCH (18:55)
[2019-09-18] MEDS: ALBUTEROL NEBULIZED 2.5 MG/3 ML INHALATION SCH (18:55)
[2019-09-18] MEDS: SODIUM CHLORIDE 0.9% 1,000 ML IV SCH (19:31)
[2019-09-18 20:15] LABS: Glucose,Whole Blood 290 mg/dL (75-99)
[2019-09-18] MEDS: metroNIDAZOLE 500 MG TAB PO SCH (20:36)
[2019-09-18] MEDS: METOPROLOL TARTRATE 50 MG TAB PO SCH (20:36)
[2019-09-18] MEDS: INSULIN DETEMIR (LEVEMIR) 100 UNIT/ML SYR SQ SCH (20:36)
--- NOTE | 2019-09-19 00:57 | P.HPIM ---
History of Present Illness H&P Date: 09/18/19 Chief Complaint: BRO Patient is a 69-year-old male with a known history of ESRD on hemodialysis, paroxysmal atrial fibrillation insulin-dependent diabetes type 2, diabetic retinopathy and legally blind, chronic peripheral neuropathy, rheumatoid arthritis, seizure disorder, hypertension, osteoarthritis and anxiety/depression and other multiple medical problems came to ER with the complaints of worsening dyspnea. Patient has been having worsening shortness of breath. Patient had left-sided thoracentesis during end of last month. Patient underwent chest x-ray today as an outpatient and was told to come to ER due to increasing fluid level. Otherwise patient denied any chest pain. No fever no chills. No cough or sputum production. No nausea vomiting or abdominal pain or diarrhea. EKG showed atrial fibrillation with controlled heart rate. Laboratory data showed WBC 6.8, hemoglobin 10.9, MCV 104.7 and platelets 185 Sodium 136, potassium 5.1, BUN 56 and creatinine 7.74 blood sugar is 286 [place] [id number] Review of Systems Constitutional: Patient denies any fever or chills . No generalized weakness or weight loss. Abdomen: Patient denied nausea vomiting and diarrhea and abdominal pain. Cardiovascular: Patient denies any chest pain. +short of breath no palpitations. Respiratory: patient denied any cough is from production. + shortness of breath Neurologic: Patient denied any numbness or tingling headache. Musculoskeletal: Patient denies any complaints of joint swelling or deformity. Skin: Negative Psychiatric: Negative Endocrine: No heat or cold intolerance. No recent weight gain. Genitourinary: No dysuria or hematuria. All other 14 point ROS negative except the above Past Medical History Past Medical History: Atrial Fibrillation, Asthma, Heart Failure, Diabetes Mellitus, Dialysis, Eye Disorder, GERD/Reflux, Hypertension, Osteoarthritis (OA), Pneumonia, Renal Disease, Rheumatoid Arthritis (RA), Seizure Disorder Additional Past Medical History / Comment(s): ESRD with hemodialysis, mineral bone disease, chronic anemia, IDDM type II, diabetic retinopathy-"legally blind", chronic neuropathy occasionally in toes bilateral feet and left leg, bilateral lower leg edema, cellulitis bilateral lower legs, past leg/foot wounds and currently has left medial leg wounds that have scabbed over and no longer goes to [facility], paroxysmal Afib, 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 History of Any Multi-Drug Resistant Organisms: None Reported Past Surgical History: Hernia Repair, Orthopedic Surgery Additional Past Surgical History / Comment(s): Bilateral cataract surgery, insertion dialysis catheter left arm then had a procedure done to dialysis catheter at [facility]-cannot recall exactly what was done, PICC line insertion/removed, bilateral inguinal hernina repairs, colonoscopy/polypectomy, R shoulder rotator cuff repair, debridements bilateral feet. Past Anesthesia/Blood Transfusion Reactions: No Reported Reaction Additional Past Anesthesia/Blood Transfusion Reaction / Comment(s): Pt received blood in past without reaction. Past Psychological History: Anxiety, Depression Smoking Status: Former smoker Past Alcohol Use History: None Reported Past Drug Use History: None Reported - Past Family History Mother Family Medical History: Diabetes Mellitus Father Family Medical History: Cancer Additional Family Medical History / Comment(s): Metastatic cancer. Pt cannot recall primary. Medications and Allergies Home Medications Medication Instructions Recorded Confirmed Type Etanercept [Enbrel] 50 mg SQ LUU 06/12/14 09/18/19 History NIFEdipine [NIFEdipine ER] 60 mg PO DAILY 06/12/14 09/18/19 History Aspirin EC [Ecotrin Low Dose] 81 mg PO DAILY 07/31/18 09/18/19 History Gemfibrozil [Lopid] 600 mg PO BID 07/31/18 09/18/19 History Budesonide-Formot 160-4.5 Mcg 2 puff INHALATION RT-BID 02/26/19 09/18/19 History [Symbicort 160-4.5 Mcg Inhaler] Calcium Acetate [PhosLo] 2,001 mg PO TID-W/MEALS 02/26/19 09/18/19 History Magnebind 250/300mg 3 tab PO BID-W/MEALS 02/26/19 09/18/19 History Metoprolol Tartrate [Lopressor] 50 mg PO BID 02/26/19 09/18/19 History Omeprazole 40 mg PO DAILY 02/26/19 09/18/19 History Prorenal + D 1 tab PO DAILY 02/26/19 09/18/19 History Albuterol Nebulized [Ventolin 2.5 mg INHALATION RT-TID 03/17/19 09/18/19 History Nebulized] Insulin Glargine,Hum.rec.anlog 35 unit SQ HS 06/16/19 09/18/19 History [Lantus Solostar] levOCARNitine [Levocarnitine] 330 mg PO TID-W/MEALS 06/27/19 09/18/19 History ALPRAZolam [Xanax] 0.25 mg PO TID PRN 3 Days #9 tab 07/09/19 09/18/19 Rx Acetaminophen Tab [Tylenol] 650 mg PO Q6HR PRN tab 07/09/19 09/18/19 Rx Calcium Acetate [PhosLo] 667 mg PO DAILY PRN 08/20/19 09/18/19 History Furosemide [Lasix] 40 mg PO BID 08/20/19 09/18/19 History Insulin Glargine,Hum.rec.anlog See Protocol SQ HS PRN 08/20/19 09/18/19 History [Lantus Solostar] Insulin Lispro [humaLOG Kwikpen] See Protocol SQ AC-TID PRN 08/20/19 09/18/19 History Vit C/E/Zn/Coppr/Lutein/Zeaxan 1 cap PO DAILY 08/20/19 09/18/19 History [Preservision Areds 2 Softgel] Ciprofloxacin HCl [Cipro] 500 mg PO DAILY 42 Days #42 tab 08/28/19 09/18/19 Rx Darbepoetin Dinh [Aranesp] 40 mcg SQ Q7D syringe 08/28/19 09/18/19 Rx Folic Acid 1 mg PO DAILY@1200 30 Days #30 tab 08/28/19 09/18/19 Rx Multivitamins, Thera [Multivitamin 1 each PO DAILY@1200 30 Days #30 08/28/19 0 09/18/19 Rx (formulary)] tab Thiamine [Vitamin B-1] 100 mg PO DAILY@1200 30 Days #30 08/28/19 09/18/19 Rx tab metroNIDAZOLE [Flagyl] 500 mg PO TID 42 Days #126 tab 08/28/19 09/18/19 Rx Vancomycin 1,250 mg IVPB MOFR 09/18/19 09/18/19 History Allergies Allergy/AdvReac Type Severity Reaction Status Date / Time sulfamethoxazole AdvReac Unknown Nausea & Verified 09/18/19 13:34 [From Bactrim] Vomiting trimethoprim [From Bactrim] AdvReac Unknown Nausea & Verified 09/18/19 13:34 Vomiting Physical Exam Vitals: Vital Signs Temp Pulse Resp BP Pulse Ox 09/18/19 13:13 18 09/18/19 12:56 97.4 F L 75 18 132/62 97 Intake and Output 09/18/19 09/18/19 09/18/19 06:59 14:59 22:59 Other: Weight 108.862 kg PHYSICAL EXAMINATION: Patient is lying in the bed comfortably, no acute distress, awake alert and oriented.. HEENT: Normocephalic. Neck is supple. Pupils reactive. Nostrils clear. Oral cavity is moist. Ears reveal no drainage. Neck reveals no JVD, carotid bruits, or thyromegaly. CHEST EXAMINATION: Trachea is central. Symmetrical expansion. left lower lobe diminished air entry otherwise Lung albarran clear to auscultation and percussion. CARDIAC: Normal S1, S2 with no gallops. No murmurs ABDOMEN: Soft. Bowel sounds normal. No organomegaly. No abdominal bruits. Extremities: reveal no edema. No clubbing or cyanosis Neurologically awake, alert, oriented x3 with well-coordinated movements. No focal deficits noted Skin: No rash or skin lesions. Psychiatric: Coperative. Nonsuicidal Musculoskeletal: No joint swelling or deformity. Normal range of motion. Results CBC & Chem 7: 09/18/19 13:45 09/18/19 13:45 Labs: Abnormal Lab Results - Last 24 Hours (Table) 09/18/19 09/18/19 Range/Units 13:45 13:45 RBC 3.39 L (4.30-5.90) m/uL Hgb 10.9 L (13.0-17.5) gm/dL Hct 35.4 L (39.0-53.0) % MCV 104.7 H (80.0-100.0) fL MCHC 30.9 L (31.0-37.0) g/dL RDW 15.6 H (11.5-15.5) % Lymphocytes # 0.8 L (1.0-4.8) k/uL Sodium 136 L (137-145) mmol/L Chloride 95 L (98-107) mmol/L BUN 56 H (9-20) mg/dL Creatinine 7.74 H* (0.66-1.25) mg/dL Glucose 286 H (74-99) mg/dL AST 16 L (17-59) U/L Thrombosis Risk Factor Assmnt - DVT/VTE Prophylaxis DVT/VTE Prophylaxis: Pharmacologic Prophylaxis ordered Assessment and Plan Assessment: Dyspnea secondary to left-sided pleural effusion due to CHF and volume overload Acute on chronic CHF with systolic dysfunction. ESRD on hemodialysis. Sunday and Sunday. Recent Right foot acute osteomyelitis with polymicrobial zari, including potential, Citrobacter braakii, enterococcus faecalis as as well as anaerobes, gram positive cocci. Continue with Cipro for a total of 42 days. Hyperkalemia, severe. Diabetes mellitus type 2 IDDM Hypertension History of atrial fibrillation, chronic History of seizure disorder History of legal blindness secondary to diabetic retinopathy History of diabetic neuropathy Peripheral neuropathy Gait dysfunction Full code Plan: Patient will be continued on Lasix and breathing treatments as needed. Nephrology and pulmonary was consulted. Continue with insulin dosing and titrate as needed. Continue with ciprofloxacin and Flagyl as per recommendation from recent admission due to right foot osteomyelitis. DVT prophylaxis with heparin subcu. Further recommendations based on the cli nical course. Prognosis guarded. Time with Patient: Greater than 30
[2019-09-19] MEDS: PANTOPRAZOLE 40 MG TABLET PO SCH (05:14)
[2019-09-19] MEDS: MAGNEBIND PO SCH ×2 (05:14→18:21)
[2019-09-19] MEDS: levOCARNitine (WITH SUGAR) 100 MG/ML BOTTLE PO SCH ×3 (05:20→18:21)
[2019-09-19 06:16] LABS: Glucose,Whole Blood 143 mg/dL (75-99)
[2019-09-19] MEDS: INSULIN ASPART (NovoLOG) 100 UNIT/ML VIAL SQ SCH ×4 (06:26→21:19)
[2019-09-19] MEDS: HEPARIN SODIUM,PORCINE 5,000 UNIT/ML 1 ML VIAL SQ SCH ×2 (07:34→18:03)
--- NOTE | 2019-09-19 08:24 | US ---
EXAMINATION TYPE: US chest DATE OF EXAM: 09/19/2019 COMPARISON: 07/07/2019 CLINICAL HISTORY: Markings for thoracentesis by pulmonary staff. TECHNIQUE: Targeted ultrasound of the posterior lower bilateral hemithoraces EXAM MEASUREMENTS: Left Pleural Effusion pocket size: 13.7 cm Left skin surface to fluid distance: 2.3 cm Left side marked for possible thoracentesis outside the dept. Pulmonologists are able to review the images in the patient?s EMR. IMPRESSIONS: 1. Bilateral pleural effusions
[2019-09-19] MEDS: ALBUTEROL NEBULIZED 2.5 MG/3 ML INHALATION SCH ×3 (08:29→19:42)
[2019-09-19] MEDS: SYMBICORT 160-4.5 MCG INHALER INHALATION SCH ×2 (08:29→19:42)
[2019-09-19] MEDS: METOPROLOL TARTRATE 50 MG TAB PO SCH ×2 (08:42→21:17)
[2019-09-19] MEDS: CIPROFLOXACIN HCL 500 MG TAB PO SCH (08:43)
[2019-09-19] MEDS: FENOFIBRATE 160 MG TAB PO SCH (08:43)
[2019-09-19] MEDS: FUROSEMIDE 40 MG TAB PO SCH ×2 (08:43→18:03)
[2019-09-19] MEDS: metroNIDAZOLE 500 MG TAB PO SCH ×3 (08:44→21:29)
[2019-09-19] MEDS ORDERED: NON FORMULARY DRUG (Vit C/E/Zn/Coppr/Lutein/Zeaxan [Preservision Areds 2 Softgel] 1 CAP) PO SCH (09:00)
[2019-09-19] MEDS ORDERED: NON FORMULARY DRUG (Prorenal + D 1 TAB) PO SCH (09:00)
[2019-09-19] MEDS ORDERED: ASPIRIN 81 MG PO SCH (09:00)
--- NOTE | 2019-09-19 10:15 | XR ---
EXAMINATION TYPE: XR chest 2V DATE OF EXAM: 09/19/2019 COMPARISON: Prior chest x-ray 09/18/2019 HISTORY: Difficulty breathing, shortness of breath TECHNIQUE: Frontal and lateral views of the chest are obtained. FINDINGS: There is no significant change. Opacification left hemithorax is again noted, difficult to exclude tracheal deviation. Patient is rotated. No evident pneumothorax. Heart size is obscured. The re are overlying cardiac leads. IMPRESSION: Rotated exam. Large left pleural effusion.
[2019-09-19 10:54] VITALS: BMI 29.9
--- NOTE | 2019-09-19 12:05 | XR ---
EXAMINATION TYPE: XR chest 1V portable DATE OF EXAM: 09/19/2019 COMPARISON: Prior chest x-ray 09/19/2019 HISTORY: Status post left thoracentesis TECHNIQUE: Single frontal view of the chest is obtained. FINDINGS: There is some improvement in aeration at the left upper lobe. Persistent opacification see n at the left lung base. No pneumothorax. IMPRESSION: No evident complication status post thoracentesis. There is residual left pleural fluid present.
[2019-09-19 12:10] LABS: Glucose,Whole Blood 129 mg/dL (75-99)
--- NOTE | 2019-09-19 12:43 | CONS ---
CONSULTATION REASON FOR CONSULT: End-stage renal disease. HISTORY OF PRESENT ILLNESS: Patient is a 69-year-old male with end-stage renal disease, on hemodialysis on a Sunday, Sunday, Sunday schedule. Patient was admitted to the hospital with shortness of breath. He denied any fever or chills. He has had pleural effusions before with thoracentesis. Patient also missed his dialysis treatment on Sunday due to baby-sitting. He does have issues with fluid gains and previous admissions for volume overload. No nausea, vomiting, abdominal pain or diarrhea. Patient has significant lower extremity edema and has been going to the [facility]ound Clinic. PAST MEDICAL HISTORY: Atrial fibrillation, asthma, CHF, type 2 diabetes, gastroesophageal reflux disease, hypertension, osteoarthritis, rheumatoid arthritis, seizure disorder, retinopathy, patient is legally blind, chronic back pain, bilateral lower extremity ulcers, wounds. PAST SURGICAL HISTORY: Cataract surgery, hernia repair, dialysis catheter placement, AV fistula, colonoscopy, polypectomy, right shoulder rotator cuff repair, multiple debridements on the ulcers on the feet. SOCIAL HISTORY: Patient is a former smoker. No history of drug abuse or alcohol abuse. MEDICATIONS: Include Enbrel, nifedipine, aspirin, Lopid, PhosLo, Lopressor omeprazole, ProRenal vitamins, insulin, PhosLo, Lasix, Aranesp, Flagyl, previous vancomycin. ALLERGIES: Include Bactrim causes nausea and vomiting. REVIEW OF SYSTEMS: As per HPI. Other systems negative. PHYSICAL EXAMINATION: Patient is comfortable, awake, alert, oriented x3, not in any acute distress. Blood pressure 123/67, heart rate 65 per minute, he is afebrile. Examination of the heart, S1, S2. Examination of the lungs, bilateral breath sounds are heard. Abdomen is soft, nontender. Examination of the lower extremities shows bilateral extremities to be wrapped. Significant edema is noted. MAT TESTER exam grossly intact. LABS: Show sodium of 136, potassium 5.1, BUN 56, creatinine 7.74, hemoglobin 10.9 g/dL. Chest x-ray result is pending. Chest ultrasound from today shows left pleural effusion 13.7 cm. ASSESSMENT: 1. End-stage renal disease, on hemodialysis on a Sunday, Sunday, Sunday schedule. We will schedule the patient for hemodialysis today. 2. Previous history of bleeding from AV fistula. Currently, no repeated episodes as outpatient. 3. Volume overload, we will plan for about 3-3.5 L today of ultrafiltration. 4. Pleural effusions with previous thoracentesis scheduled for left thoracentesis today. 5. Bilateral lower extremity wounds. Attending the wound clinic, currently maintained on Cipro. 6. CKD mineral bone disorder, maintained on PhosLo. PLAN: Hemodialysis today, goal UF 3-3.5 L as tolerated. Patient is encouraged to attend his hemodialysis treatments on a regular basis. MMODL / IJN: [id number] /
[2019-09-19] MEDS: FOLIC ACID 1 MG TAB PO SCH (12:45)
[2019-09-19] MEDS: MULTIVITAMINS, THERA 1 EACH TAB PO SCH (12:45)
[2019-09-19] MEDS: THIAMINE 100 MG TAB PO SCH (12:45)
--- NOTE | 2019-09-19 14:30 | US ---
EXAMINATION TYPE: US thoracentesis DATE OF EXAM: 09/19/2019 COMPARISON: NONE HISTORY: Left Pleural effusion. FINDINGS: Maximal barrier technique was utilized. The skin overlying a suitable pocket of fluid was localized and the overlying skin prepped and draped. Lidocaine was used for local anesthesia. Ultras ound was used with sterile technique. A 5 Chinese catheter over guide needle was advanced into the pl eural fluid collection using ultrasound guidance and the needle removed, catheter advanced. Approxim ately 2.6 liter(s) of dark fluid was removed. Catheter was withdrawn and hemostasis achieved. There is no immediate complication. The patient discharged in stable condition without complication. IMPRESSION: STATUS POST ULTRASOUND GUIDED THORACENTESIS, POST PROCEDURE CHEST X-RAY PENDING. THIS AK OCEDURE WAS PERFORMED BY THE UNDERSIGNED.
[2019-09-19] MEDS ORDERED: GELATIN SPONGE,ABSORB (LARGE) 1 EACH SPONGE ONE (16:00)
--- NOTE | 2019-09-19 16:02 | CONS ---
CONSULTATION PULMONARY/CRITICAL CARE CONSULTATION: DATE OF SERVICE: 09/19/2019 REASON FOR CONSULTATION: Shortness of breath and abnormal chest x-ray. This is a 69-year-old male who presented to the emergency room on 09/18/2019. The patient apparently came in with complaints of shortness of breath. Apparently the shortness of breath had been going on and getting progressively worse since he was in the hospital a month prior. The patient has had previous thoracenteses performed. I believe the last one was done by Interventional Radiology, where 1.2 L was removed from the left pleural space. The patient went for a chest x-ray as an outpatient, and when the chest x-ray showed near-complete opacification of left chest, the patient was admitted to the hospital. Honestly, this patient could have had an outpatient thoracentesis and really not needed to be admitted to the hospital. Anyway, we were consulted for this problem as well as Interventional Radiology. The patient was apparently scheduled to go the Interventional Radiology for the procedure. We ordered the ultrasound. We defer to them, since they were the last ones to do the thoracentesis. Anyway, other than shortness of breath, the patient does not have any complaints. He denies any chest pain or pressure. Denies any fever or chills. There is no nausea, vomiting, diarrhea, abdominal pain. He denies any genitourinary complaints. MEDICATIONS: His home medications are reviewed. He is currently on a number of medications, including Enbrel, Nifedipine ER, Ecotrin, Lopid, Symbicort, PhosLo, MagnaBind, Lopressor, omeprazole, ProRenal Plus D, albuterol updrafts, insulin, levocarnitine, Lasix, insulin glargine, insulin lispro, PreserVision, vitamins, vancomycin, Xanax, Tylenol, Cipro, Aranesp, folic acid, multiple vitamins, thiamine and Flagyl. ALLERGIES: ALLERGIES include BACTRIM and TRIMETHOPRIM. PAST MEDICAL HISTORY: His past medical history is positive for atrial fibrillation, asthma, CHF, diabetes, end-stage renal disease requiring dialysis, GERD, hypertension, DJD, pneumonia, rheumatoid arthritis, seizure disorder, anemia, diabetic retinopathy, diabetic neuropathy, endocarditis, chronic back pain and other minor medical problems. SURGICAL HISTORY: Surgical history includes, among other things, bilateral cataract surgery, insertion of a dialysis catheter, PICC line insertion and removal, bilateral inguinal hernia repair, colonoscopy, polypectomy, right rotator cuff repair and debridements of bilateral feet. SOCIAL HISTORY: Positive for previous tobacco use. Denies any alcohol or illicit drug use. FAMILY HISTORY: Positive for mother with diabetes and father with metastatic cancer. REVIEW OF SYSTEMS: CONSTITUTIONAL: Negative. NEUROLOGIC: Negative. HEENT: Negative. CARDIOVASCULAR: Negative. PULMONARY: Shortness of breath. GI: Negative. : Negative. RHEUMATOLOGIC: Negative. IMMUNOLOGIC: Negative. ENDOCRINOLOGIC: Negative. DERMATOLOGIC: Negative. PHYSICAL EXAMINATION: VITAL SIGNS: Current vital signs are reviewed. Temperature is 98.5, heart rate 60, respiratory rate 20, blood pressure 113/55, mean 74. Saturations are 100%. GENERAL APPEARANCE: Appears in no acute distress. HEENT: Examination is grossly unremarkable. NECK: Supple. Full range of motion. No adenopathy. Neck veins are flat. CARDIOVASCULAR: Cardiovascular examination reveals regular rhythm and rate. Heart rate is about 76 beats per minute. He appears to be in sinus rhythm. No murmur noted. LUNGS: Lungs reveal a clear right chest. The left lung is almost devoid of all lung sounds. There is significant dullness on percussion, whereas there is tympany on percussion on the right side. I do not hear any rhonchi, wheezes or crackles on either side. ABDOMEN: Soft. Bowel sounds are heard. EXTREMITIES: Intact. No cyanosis, clubbing or edema. SKIN: Without rash. NEUROLOGIC: Neurologic examination is brief but nonfocal. LABS: Labs are reviewed. White count 6.8, hemoglobin 10.9, hematocrit 35.4, platelet count 185,000. PT, INR, PTT all normal. Sodium 136, potassium 5.1, chloride 95, CO2 26. Anion gap is 15. BUN and creatinine were 56 and 7.74. AST was 16. N-terminal proBNP 34,100. Microbiology is negative. An EKG shows atrial fibrillation with a rate of about 70 beats per minute. Chest ultrasound shows a large pocket of fluid, 13.7 cm in size. Chest x-ray shows a large left pleural effusion. Medications are reviewed. ASSESSMENT: 1. Recurrent large left-sided effusion, likely transudative and related to the patient's underlying chronic renal failure and [id number] week hemodialysis, which he missed on Sunday. 2. History of atrial fibrillation. 3. History of asthma. 4. History of congestive heart failure. 5. Diabetes mellitus. 6. Gastroesophageal reflux disease. 7. Hypertension. 8. Degenerative joint disease. 9. History of pneumonia. 10.History of rheumatoid arthritis. 11.History of seizure disorder. 12.Multiple other medical problems and comorbidities. PLAN: The patient is going to be having a thoracentesis done by Interventional Radiology. Additional recommendations and suggestions are forthcoming. In my opinion, the patient has had two previous thoracenteses at least and the fluid was analyzed in both situations. I do not think the fluid needs to be analyzed at this procedure. Additional recommendations and suggestions are forthcoming. Once the fluid is removed, and a follow-up chest x-ray shows no complication, the patient could be discharged home. MMODL / IJN: [id number] /
[2019-09-19 16:55] LABS: Glucose,Whole Blood 124 mg/dL (75-99)
[2019-09-19] MEDS: SODIUM CHLORIDE 0.9% 1,000 ML IV SCH (17:49)
[2019-09-19 20:43] LABS: Glucose,Whole Blood 200 mg/dL (75-99)
[2019-09-19] MEDS: INSULIN DETEMIR (LEVEMIR) 100 UNIT/ML SYR SQ SCH (21:18)
[2019-09-19] MEDS: ACETAMINOPHEN TAB 325 MG TAB PO PRN (21:33)
[2019-09-20] MEDS: HEPARIN SODIUM,PORCINE 5,000 UNIT/ML 1 ML VIAL SQ SCH ×2 (00:13→08:46)
[2019-09-20 02:38] LABS: Glucose,Whole Blood 173 mg/dL (75-99)
[2019-09-20 06:21] LABS: Glucose,Whole Blood 90 mg/dL (75-99)
[2019-09-20] MEDS: FUROSEMIDE 40 MG TAB PO SCH (06:30)
[2019-09-20] MEDS ORDERED: GELATIN SPONGE,ABSORB (LARGE) 1 EACH SPONGE ONE (08:00)
[2019-09-20] MEDS: SYMBICORT 160-4.5 MCG INHALER INHALATION SCH (08:31)
[2019-09-20] MEDS: ALBUTEROL NEBULIZED 2.5 MG/3 ML INHALATION SCH ×2 (08:31→12:11)
[2019-09-20] MEDS: INSULIN ASPART (NovoLOG) 100 UNIT/ML VIAL SQ SCH ×2 (08:39→11:30)
[2019-09-20] MEDS: metroNIDAZOLE 500 MG TAB PO SCH (08:43)
[2019-09-20] MEDS: CIPROFLOXACIN HCL 500 MG TAB PO SCH (08:43)
[2019-09-20] MEDS: MULTIVITAMINS, THERA 1 EACH TAB PO SCH (08:44)
[2019-09-20] MEDS: FENOFIBRATE 160 MG TAB PO SCH (08:44)
[2019-09-20] MEDS: THIAMINE 100 MG TAB PO SCH (08:44)
[2019-09-20] MEDS: FOLIC ACID 1 MG TAB PO SCH (08:44)
[2019-09-20] MEDS: ACETAMINOPHEN TAB 325 MG TAB PO PRN ×2 (08:45→13:57)
[2019-09-20] MEDS: PANTOPRAZOLE 40 MG TABLET PO SCH (08:45)
[2019-09-20] MEDS: levOCARNitine (WITH SUGAR) 100 MG/ML BOTTLE PO SCH (08:47)
[2019-09-20] MEDS: MAGNEBIND PO SCH (08:47)
[2019-09-20 10:21] VITALS: BP 120/59; RESP 16; TEMP 98.4
[2019-09-20] MEDS: METOPROLOL TARTRATE 50 MG TAB PO SCH (11:02)
[2019-09-20 11:32] LABS: Glucose,Whole Blood 100 mg/dL (75-99)
--- NOTE | 2019-09-20 12:20 | P.PN ---
Subjective Progress Note Date: 09/20/19 Principal diagnosis: Shortness of breath secondary to recurrent large left-sided pleural effusion Patient is seen today 09/20/2019 in follow-up on the selective care unit. He is currently sitting up in a chair at the bedside. Awake and alert in no acute distress. He is maintaining good O2 saturations in the mid 90s on room air. He didn't have a large left-sided pleural effusion measuring 13.7 cm in size that was drained yesterday by interventional radiology with 2.6 L of dark fluid removed. He is on oral Lasix. He is maintained on Symbicort and albuterol. Antibiotics in the form of Cipro and Flagyl. Objective - Vital Signs Vital signs: Vital Signs Temp 98.4 F 09/20/19 10:20 Pulse 66 09/20/19 10:20 Resp 16 09/20/19 10:20 BP 120/59 09/20/19 10:20 Pulse Ox 95 09/20/19 04:00 Intake & Output 09/19/19 09/20/19 09/20/19 18:59 06:59 18:59 Intake Total 700 Output Total 2000 0 2500 Balance -2000 0 -1800 Weight 108.862 kg 103.6 kg Intake: Oral 700 Output: Stool 0 0 Hemodialysis 2000 2500 Other: # Voids 3 1 - Exam GENERAL EXAM: Alert, pleasant 69-year-old gentleman, on room air, comfortable in no apparent distress. HEAD: Normocephalic. EYES: Normal reaction of pupils, equal size. NOSE: Clear with pink turbinates. THROAT: No erythema or exudates. NECK: No masses, no JVD. CHEST: No chest wall deformity. LUNGS: Equal air entry with crackles in the left base CVS: S1 and S2 normal with no audible murmur, regular rhythm. ABDOMEN: No hepatosplenomegaly, normal bowel sounds, no guarding or rigidity. SPINE: No scoliosis or deformity SKIN: No rashes CENTRAL NERVOUS SYSTEM: No focal deficits, tone is normal in all 4 extremities. EXTREMITIES: AV fistula left upper extremity. There is no peripheral edema. No clubbing, no cyanosis. Peripheral pulses are intact. - Labs CBC & Chem 7: 09/18/19 13:45 09/18/19 13:45 Labs: Abnormal Lab Results - Last 24 Hours (Table) 06/09/19/19 09/20/19 Range/Units 16:53 20:42 02:36 POC Glucose (mg/dL) 124 H 200 H 173 H (75-99) mg/dL 09/20/19 Range/Units 11:25 POC Glucose (mg/dL) 100 H (75-99) mg/dL Microbiology - Last 24 Hours (Table) 09/18/19 13:45 Blood Culture - Preliminary Blood No Growth after 24 hours Assessment and Plan Assessment: 1 Recurrent large left-sided pleural effusion secondary to patient's underlying chronic renal failure. With missed dialysis. 2 Chronic renal failure receiving hemodialysis. He is on a Sunday schedule. 3 Atrial fibrillation 4 History of asthma 5 History of congestive heart failure 6 Diabetes placement 7 GERD 8 Hypertension 9 Degenerative joint disease 10 Rheumatoid arthritis 11 History of seizure disorders Plan: The patient was seen and evaluated by Dr. Guevara Post thoracentesis x-ray reviewed Still with some residual left-sided pleural effusion Cleared for discharge from the pulmonary standpoint Follow-up in the office in 1-2 weeks' time Continue compliance with hemodialysis I, the cosigning physician, performed a history & physical examination of the patient. Lungs sounds crackles at the left base. Maintaining good O2 saturations in the 90s on room air. I discussed the assessment and plan of care with my nurse practitioner, Steffany Steele. I attest to the above note as dictated by her.
--- NOTE | 2019-09-20 14:47 | PN ---
PROGRESS NOTE Patient is seen for followup for end-stage renal disease. He is seen on hemodialysis, tolerating his treatment well. The patient did have thoracentesis yesterday on the left side, about 2.6 L of fluid was removed. He did not finish his hemodialysis yesterday and wanted to have an extra 2.5 hour treatment today. The patient is advised that he needs to stay for his full treatments as outpatient and not miss treatments as outpatient to avoid repeated admissions and fluid overload. PHYSICAL EXAMINATION: On examination today, blood pressure was 120/59, heart rate 66 per minute, he is afebrile. Examination of the heart S1, S2. Examination of the lungs: Decreased breath sounds bilateral bases. Abdomen is soft, nontender. Examination of lower extremities show severe edema. Bilateral lower extremities are wrapped. 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 LABS: Not available from today. ASSESSMENT: 1. End-stage renal disease, on hemodialysis on a Sunday, Sunday, Sunday schedule. 2. Volume overload, currently improving. 3. Chronic lower extremity edema. 4. Bilateral pleural effusion, status post multiple thoracentesis. 5. Anemia of chronic disease. 6. Chronic kidney disease mineral bone disorder, maintained on PhosLo. PLAN: Hemodialysis today, goal UF about 2.5 L. The patient is advised regarding the importance of compliance with the outpatient treatments. MMODL / IJN: [id number] /
[2019-09-20 14:55] VITALS: PULSE 66
[2019-09-21] MEDS ORDERED: ETANERCEPT 50 MG SQ SCH (16:42)
[2019-09-24] MEDS ORDERED: DARBEPOETIN ALFA 40 MCG/0.4 ML SYRINGE SQ SCH (09:00)
== END 2019-09-20 15:07 | disposition home or self-care (01) ==
LOC: EC 12:53 → 3SCARD 13:37
PROVIDERS: ADMIT Internal Medicine; ATTEND Internal Medicine
DX: J90 Pleural effusion, not elsewhere classified (principal); I48.20 Chronic atrial fibrillation, unspecified; J45.909 Unspecified asthma, uncomplicated; I13.2 Hypertensive heart and chronic kidney disease with heart failure and with stage 5 chronic kidney disease, or end stage renal disease; I50.23 Acute on chronic systolic (congestive) heart failure; E11.22 Type 2 diabetes mellitus with diabetic chronic kidney disease; N18.6 End stage renal disease; Z99.2 Dependence on renal dialysis; Z79.4 Long term (current) use of insulin; E11.319 Type 2 diabetes mellitus with unspecified diabetic retinopathy without macular edema; H54.8 Legal blindness, as defined in USA; E11.42 Type 2 diabetes mellitus with diabetic polyneuropathy; D63.1 Anemia in chronic kidney disease; E87.5 Hyperkalemia; K21.9 Gastro-esophageal reflux disease without esophagitis; M19.90 Unspecified osteoarthritis, unspecified site; Z87.891 Personal history of nicotine dependence; J42 Unspecified chronic bronchitis; Z87.01 Personal history of pneumonia (recurrent); M06.9 Rheumatoid arthritis, unspecified; G40.909 Epilepsy, unspecified, not intractable, without status epilepticus; M89.9 Disorder of bone, unspecified; L03.116 Cellulitis of left lower limb; L03.115 Cellulitis of right lower limb; Z86.19 Personal history of other infectious and parasitic diseases; Z86.69 Personal history of other diseases of the nervous system and sense organs; Z98.42 Cataract extraction status, left eye; Z98.41 Cataract extraction status, right eye; Z98.890 Other specified postprocedural states; F41.9 Anxiety disorder, unspecified; F32.9 Major depressive disorder, single episode, unspecified; G89.29 Other chronic pain; M54.9 Dorsalgia, unspecified; Z86.79 Personal history of other diseases of the circulatory system; Z80.9 Family history of malignant neoplasm, unspecified; Z83.3 Family history of diabetes mellitus; Z79.51 Long term (current) use of inhaled steroids; Z79.899 Other long term (current) drug therapy; Z79.82 Long term (current) use of aspirin; Z88.2 Allergy status to sulfonamides
CPT/HCPCS: 96372 ×2; 99285; 36415; 94640 ×5; 93005; 83880; 80053; 83605; 85025; 85610; 85730; 87040; 71045; 71046; 32555; 76604; G0378 ×3; U0003; J1644 ×2; 90935

== ENCOUNTER → 2019-09-18 | Outpatient (CLI) | payer MEDICARE ==
--- NOTE | 2019-09-18 12:51 | XR ---
"EXAMINATION TYPE: XR chest 2V DATE OF EXAM: 09/18/2019 COMPARISON: 07/09/2019 HISTORY: 69 year-old male left pleural effusion TECHNIQUE: Frontal and lateral views FINDINGS: There is now complete white out of the left hemithorax likely secondary to very large left pleural ef fusion. This causes mass effect with shift of the cardiomediastinal towards the right. No pleural eff usion on the right. IMPRESSION: Progression to a massive left pleural effusion with complete white out of the left hemithorax and mas s effect causing rightward cardiomediastinal shift. Underlying consolidation or mass cannot be exclud ed on the basis of this exam. Correlate for any known diagnosis. Instructions given to the technologist to direct the patient to the ER. A [place] level critical message alert has been initiated for Nell Rosen MD via the [employer] | Critical Results System on 09/18/2019 12:49 PM. This message alert has been sent to Nell rivera MD via the preferences provided by the clinician for the receipt of Radiology Critical Findings. Message ID [id number]."
== END | disposition home or self-care (01) ==
LOC: RADXRMAIN 12:20
PROVIDERS: ATTEND Family Medicine
DX: J90 Pleural effusion, not elsewhere classified (principal); R22.2 Localized swelling, mass and lump, trunk
CPT/HCPCS: 71046

== ENCOUNTER → 2019-10-23 | Outpatient (CLI) | payer MEDICARE ==
[2019-10-23 15:03] LABS: Basophils # (A) 0.1 k/uL (0-0.2); Basophils % (A) 1 %; Eosinophils # (A) 0.3 k/uL (0-0.7); Eosinophils % (A) 4 %; HCT 38.2 % (39.0-53.0); HGB 11.6 gm/dL (13.0-17.5); Hypochromasia Marked; Lymphocytes % (A) 14 %; MCH 32.4 pg (25.0-35.0); MCHC 30.3 g/dL (31.0-37.0); Macrocytosis Moderate; Mean Platelet Volume 8.5; Monocytes # (A) 0.5 k/uL (0-1.0); Monocytes % (A) 7 %; Neutrophils # (A) 5.3 k/uL (1.3-7.7); Neutrophils % (A) 73 %; Platelet Count 168 k/uL (150-450); RBC 3.57 m/uL (4.30-5.90); RDW 15.2 % (11.5-15.5); WBC 7.2 k/uL (3.8-10.6)
[2019-10-23 19:40] LABS: Erythrocyte Sedimentation Rate 66 mm/Hr (0-20)
[2019-10-23 23:32] LABS: Hemoglobin A1C 7.7 % (4.0-6.0)
[2019-10-23 23:54] LABS: African American GFR (CKD) 16.9 (60.0-200.0); Albumin 3.6 g/dL (3.80-4.90); Anion Gap 9.8 mmol/L (4.00-12.00); BUN/Creat Ratio 4.87 Ratio (12.00-20.00); C Reactive Protein 2.2 mg/dL (0.0-0.8); Calcium 9.6 mg/dL (8.7-10.3); Carbon Dioxide 32.2 mmol/L (21.6-31.8); Globulin 3.6 g/dL (1.6-3.3); Non-African American GFR(CKD) 14.5 (60.0-200.0); Potassium 4.5 mmol/L (3.5-5.5); Total Bilirubin 0.3 mg/dL (0.3-1.2); Total Protein 7.2 g/dL (6.2-8.2)
== END | disposition home or self-care (01) ==
LOC: LABWHC1 12:24
PROVIDERS: ATTEND Family Medicine
DX: E11.621 Type 2 diabetes mellitus with foot ulcer (principal); E11.622 Type 2 diabetes mellitus with other skin ulcer; I87.2 Venous insufficiency (chronic) (peripheral); N18.6 End stage renal disease; Z99.2 Dependence on renal dialysis; I48.0 Paroxysmal atrial fibrillation; M05.59 Rheumatoid polyneuropathy with rheumatoid arthritis of multiple sites; L97.502 Non-pressure chronic ulcer of other part of unspecified foot with fat layer exposed; L97.522 Non-pressure chronic ulcer of other part of left foot with fat layer exposed; L97.515 Non-pressure chronic ulcer of other part of right foot with muscle involvement without evidence of necrosis
CPT/HCPCS: 36415; 80053; 83036; 84134; 85025; 85652; 86140

== ENCOUNTER 2019-11-06 12:30 | Inpatient (IN) | payer MEDICARE ==
[2019-11-06] MEDS ORDERED: PIPERACILLIN-TAZOBACTAM 3.375 GM in SODIUM CHLORIDE 0.9% 100 ML IVPB STA (13:13)
[2019-11-06] MEDS ORDERED: VANCOMYCIN IV PER PHARMACY 1 EACH MISC MISCELLANE PRN (13:13)
[2019-11-06] MEDS ORDERED: SODIUM CHLORIDE 0.9% 500 ML IV ONE (13:13)
[2019-11-06] MEDS ORDERED: SODIUM CHLORIDE 0.9% 1,000 ML IV SCH (13:15)
--- NOTE | 2019-11-06 13:33 | ED ---
General Adult HPI - General Chief complaint: Wound/Laceration Stated complaint: worsening wound Time Seen by Provider: 11/06/19 12:55 Source: patient, RN notes reviewed, old records reviewed Mode of arrival: wheelchair Limitations: no limitations - History of Present Illness Initial comments: Patient is a 69-year-old male with history of diabetes and on dialysis on Sunday and Sunday. He presents emergency room today for concern for worsenin g wound over his right foot at the metatarsal areas of black tissue over the first second and third toe. Patient reports that he is not on any antibiotics currently. He does state that he was sent here for further evaluation and likely IV antibiotics to heal the infection. He sees Dr. Scales for wound care. - Related Data Home Medications Medication Instructions Recorded Confirmed Etanercept [Enbrel] 50 mg SQ LUU 06/12/14 11/06/19 NIFEdipine [NIFEdipine ER] 60 mg PO DAILY 06/12/14 11/06/19 Aspirin EC [Ecotrin Low Dose] 81 mg PO DAILY 07/31/18 11/06/19 gemfibroziL [Lopid] 600 mg PO BID 07/31/18 11/06/19 Budesonide-Formot 160-4.5 Mcg 2 puff INHALATION RT-BID 02/26/19 11/06/19 [Symbicort 160-4.5 Mcg Inhaler] Calcium Acetate [PhosLo] 2,001 mg PO TID-W/MEALS 02/26/19 11/06/19 Magnebind 250/300mg 3 tab PO BID-W/MEALS 02/26/19 11/06/19 Metoprolol Tartrate [Lopressor] 50 mg PO BID 02/26/19 11/06/19 Omeprazole 40 mg PO DAILY 02/26/19 11/06/19 Prorenal + D 1 tab PO DAILY 02/26/19 11/06/19 Albuterol Nebulized [Ventolin 2.5 mg INHALATION RT-TID 03/17/19 11/06/19 Nebulized] Insulin Glargine,Hum.rec.anlog 35 unit SQ HS 06/16/19 11/06/19 [Lantus Solostar] levOCARNitine [Levocarnitine] 330 mg PO TID-W/MEALS 06/27/19 11/06/19 Calcium Acetate [PhosLo] 667 mg PO DAILY PRN 08/20/19 11/06/19 Furosemide [Lasix] 40 mg PO BID 08/20/19 11/06/19 Insulin Glargine,Hum.rec.anlog See Protocol SQ HS PRN 08/20/19 11/06/19 [Lantus Solostar] Insulin Lispro [humaLOG Kwikpen] See Protocol SQ AC-TID PRN 08/20/19 11/06/19 Vit C/E/Zn/Coppr/Lutein/Zeaxan 1 cap PO DAILY 08/20/19 11/06/19 [Preservision Areds 2 Softgel] Multivitamins, Thera [Multivitamin 1 tab PO DAILY@1200 11/06/19 11/06/19 (formulary)] Previous Rx's Medication Instructions Recorded ALPRAZolam [Xanax] 0.25 mg PO TID PRN 3 Days #9 tab 07/09/19 Acetaminophen Tab [Tylenol] 650 mg PO Q6HR PRN tab 07/09/19 Darbepoetin Dinh [Aranesp] 40 mcg SQ Q7D syringe 08/28/19 Folic Acid 1 mg PO DAILY@1200 30 Days #30 tab 08/28/19 Thiamine [Vitamin B-1] 100 mg PO DAILY@1200 30 Days #30 08/28/19 tab Allergies Allergy/AdvReac Type Severity Reaction Status Date / Time sulfamethoxazole AdvReac Unknown Nausea & Verified 11/06/19 13:52 [From Bactrim] Vomiting trimethoprim [From Bactrim] AdvReac Unknown Nausea & Verified 11/06/19 13:52 Vomiting Review of Systems ROS Statement: Those systems with pertinent positive or pertinent negative responses have been documented in the HPI. ROS Other: All systems not noted in ROS Statement are negative. Past Medical History Past Medical History: Atrial Fibrillation, Asthma, Heart Failure, Diabetes Mellitus, Dialysis, Eye Disorder, GERD/Reflux, Hypertension, Osteoarthritis (OA), Pneumonia, Renal Disease, Rheumatoid Arthritis (RA), Seizure Disorder Additional Past Medical History / Comment(s): ESRD with hemodialysis, mineral bone disease, chronic anemia, IDDM type II, diabetic retinopathy-"legally blind", chronic neuropathy occasionally in toes bilateral feet and left leg, bilateral lower leg edema, cellulitis bilateral lower legs, past leg/foot wounds and currently has left medial leg wounds that have scabbed over and no longer goes to [facility], paroxysmal Afib, 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 History of Any Multi-Drug Resistant Organisms: MRSA Date of last positivie culture/infection: 10/09/19 MDRO Source:: foot MRSA Past Surgical History: Hernia Repair, Orthopedic Surgery Additional Past Surgical History / Comment(s): Bilateral cataract surgery, insertion dialysis catheter left arm then had a procedure done to dialysis catheter at [facility]-cannot recall exactly what was done, PICC line insertion/removed, bilateral inguinal hernina repairs, colonoscopy/polypectomy, R shoulder rotator cuff repair, debridements bilateral feet. Past Anesthesia/Blood Transfusion Reactions: No Reported Reaction Additional Past Anesthesia/Blood Transfusion Reaction / Comment(s): Pt received blood in past without reaction. Past Psychological History: Anxiety, Depression Smoking Status: Former smoker Past Alcohol Use History: None Reported Past Drug Use History: None Reported - Past Family History Mother Family Medical History: Diabetes Mellitus Father Family Medical History: Cancer Additional Family Medical History / Comment(s): Metastatic cancer. Pt cannot recall primary. General Exam - General Exam Comments Initial Comments: 69-year-old male. Alert and oriented. No significant distress. Limitations: no limitations General appearance: alert, in no apparent distress Head exam: Present: atraumatic, normocephalic, normal inspection Eye exam: Present: normal appearance, PERRL, EOMI. Absent: scleral icterus, conjunctival injection, periorbital swelling ENT exam: Present: normal exam, mucous membranes moist Neck exam: Present: normal inspection. Absent: tenderness, meningismus, lymphadenopathy Respiratory exam: Present: normal lung sounds bilaterally. Absent: respiratory distress, wheezes, rales, rhonchi, stridor Cardiovascular Exam: Present: regular rate, normal rhythm, normal heart sounds. Absent: systolic murmur, diastolic murmur, rubs, gallop, clicks GI/Abdominal exam: Present: soft, normal bowel sounds. Absent: distended, tende rness, guarding, rebound, rigid Right Lower Leg exam: Present: erythema (Patient has some erythema and dryness patchy skin over the lower leg.). Absent: normal inspection Ankle exam: Present: normal inspection, full ROM Foot/Toe exam: Present: full ROM. Absent: normal inspection (Patient has evidence of wound over the distal fifth metatarsalMeasuring 4 cm x 3 cm roughly. separate 1cm circular wound noted. There is surrounding erythematous changes and drainage and bleeding noted.) Neurovascular tendon exam: Present: no vascular compromise Back exam: Present: normal inspection Neurological exam: Present: alert, oriented X3, CN II-XII intact Psychiatric exam: Present: normal affect Course Vital Signs 11/06/19 12:51 Temperature 97.8 F Pulse Rate 79 Respiratory 20 Rate Blood Pressure 156/81 O2 Sat by Pulse 100 Oximetry Medical Decision Making - Medical Decision Making 69-year-old male sent in for IV antibiotics for wound care. He is a dialysis Patient receiving a Wednesdays and Fridays. Patient was started on IV fluids, was given Zosyn and vancomycin. Aerobic wound culture completed today over the right fifth metatarsal. X-ray shows concern for did instruct her changes in the bone with concerning osteomyelitis. Discussed the case with Dr. Arnold whom agrees for admission. - Lab Data Result diagrams: 11/06/19 13:25 11/06/19 13:25 Lab Results 11/06/19 11/06/19 11/06/19 Range/Units 13:25 13:25 13:25 WBC 6.5 (3.8-10.6) k/uL RBC 4.10 L (4.30-5.90) m/uL Hgb 13.0 (13.0-17.5) gm/dL Hct 43.4 (39.0-53.0) % MCV 105.9 H (80.0-100.0) fL MCH 31.6 (25.0-35.0) pg MCHC 29.8 L (31.0-37.0) g/dL RDW 14.4 (11.5-15.5) % Plt Count 220 (150-450) k/uL Neutrophils % 77 % Lymphocytes % 14 % Monocytes % 5 % Eosinophils % 3 % Basophils % 1 % Neutrophils # 5.0 (1.3-7.7) k/uL Lymphocytes # 0.9 L (1.0-4.8) k/uL Monocytes # 0.3 (0-1.0) k/uL Eosinophils # 0.2 (0-0.7) k/uL Basophils # 0.1 (0-0.2) k/uL Hypochromasia Slight Macrocytosis Moderate Sodium 136 L (137-145) mmol/L Potassium 4.3 (3.5-5.1) mmol/L Chloride 91 L (98-107) mmol/L Carbon Dioxide 33 H (22-30) mmol/L Anion Gap 12 mmol/L BUN 20 (9-20) mg/dL Creatinine 3.80 H (0.66-1.25) mg/dL Est GFR (CKD-EPI)AfAm 17 (>60 ml/min/1.73 sqM) Est GFR (CKD-EPI)NonAf 15 (>60 ml/min/1.73 sqM) Glucose 350 H (74-99) mg/dL Plasma Lactic Acid John 1.8 (0.7-2.0) mmol/L Calcium 9.6 (8.4-10.2) mg/dL Total Bilirubin 0.6 (0.2-1.3) mg/dL AST 17 (17-59) U/L ALT 10 (4-49) U/L Alkaline Phosphatase 128 H (38-126) U/L C-Reactive Protein 27.8 H (<10.0) mg/L Total Protein 8.0 (6.3-8.2) g/dL Albumin 3.9 (3.5-5.0) g/dL - Radiology Data Radiology results: report reviewed Destructive changes involving the fifth metacarpal tarsal compatible with osteomyelitis. Disposition Clinical Impression: Osteomyelitis, Diabetic foot ulcer, Dialysis patient Disposition: HOME SELF-CARE Condition: Good Is patient prescribed a controlled substance at d/c from ED?: No Referrals: Nell Rosen MD [Primary Care Provider] - 1-2 days Time of Disposition: 14:46
[2019-11-06] MEDS ORDERED: VANCOMYCIN 1,750 MG in SODIUM CHLORIDE 0.9% 500 ML 500 ML IVPB ONE (13:45)
[2019-11-06 13:46] LABS: Basophils # (A) 0.1 k/uL (0-0.2); Basophils % (A) 1 %; Eosinophils # (A) 0.2 k/uL (0-0.7); Eosinophils % (A) 3 %; HCT 43.4 % (39.0-53.0); Hypochromasia Slight; Lymphocytes # (A) 0.9 k/uL (1.0-4.8); Lymphocytes % (A) 14 %; MCH 31.6 pg (25.0-35.0); MCHC 29.8 g/dL (31.0-37.0); MCV 105.9 fL (80.0-100.0); Macrocytosis Moderate; Monocytes # (A) 0.3 k/uL (0-1.0); Monocytes % (A) 5 %; Neutrophils % (A) 77 %; Platelet Count 220 k/uL (150-450); RDW 14.4 % (11.5-15.5); WBC 6.5 k/uL (3.8-10.6)
[2019-11-06 13:59] LABS: Albumin 3.9 g/dL (3.5-5.0); C Reactive Protein 27.8 mg/L (<10.0); Calcium 9.6 mg/dL (8.4-10.2); Potassium 4.3 mmol/L (3.5-5.1); Total Bilirubin 0.6 mg/dL (0.2-1.3)
--- NOTE | 2019-11-06 14:39 | XR ---
EXAMINATION TYPE: XR foot complete RT DATE OF EXAM: 11/06/2019 COMPARISON: NONE HISTORY: Pain TECHNIQUE: Three views are submitted. FINDINGS: Arthropathy of the first MTP. There is diffuse soft tissue edema. There is destructive change involvi ng the head of the fifth metatarsal. Portions of the cortical margin of the base of the proximal phal anx fifth digit also involved. Vascular calcifications and soft tissue edema noted. Calcaneal spur. IMPRESSION: 1. Destructive changes involving the fifth metatarsal compatible with osteomyelitis.
[2019-11-06] MEDS ORDERED: ONDANSETRON 4 MG/2 ML VIAL IVP PRN (14:46)
[2019-11-06] MEDS ORDERED: HYDROcodone/APAP 5-325MG 1 EACH TAB PO PRN (14:46)
[2019-11-06] MEDS ORDERED: MORPHINE SULFATE 4 MG/ML SYRINGE IV PRN (14:46)
[2019-11-06] MEDS ORDERED: NALOXONE 0.4 MG/ML 1 ML VIAL IV PRN (14:46)
[2019-11-06] MEDS ORDERED: IBUPROFEN 400 MG TAB PO PRN (14:46)
--- NOTE | 2019-11-06 14:50 | ED ---
Medical Decision Making - Lab Data Result diagrams: 11/06/19 13:25 11/06/19 13:25 Lab Results 11/06/19 11/06/19 11/06/19 Range/Units 13:25 13:25 13:25 WBC 6.5 (3.8-10.6) k/uL RBC 4.10 L (4.30-5.90) m/uL Hgb 13.0 (13.0-17.5) gm/dL Hct 43.4 (39.0-53.0) % MCV 105.9 H (80.0-100.0) fL MCH 31.6 (25.0-35.0) pg MCHC 29.8 L (31.0-37.0) g/dL RDW 14.4 (11.5-15.5) % Plt Count 220 (150-450) k/uL Neutrophils % 77 % Lymphocytes % 14 % Monocytes % 5 % Eosinophils % 3 % Basophils % 1 % Neutrophils # 5.0 (1.3-7.7) k/uL Lymphocytes # 0.9 L (1.0-4.8) k/uL Monocytes # 0.3 (0-1.0) k/uL Eosinophils # 0.2 (0-0.7) k/uL Basophils # 0.1 (0-0.2) k/uL Hypochromasia Slight Macrocytosis Moderate Sodium 136 L (137-145) mmol/L Potassium 4.3 (3.5-5.1) mmol/L Chloride 91 L (98-107) mmol/L Carbon Dioxide 33 H (22-30) mmol/L Anion Gap 12 mmol/L BUN 20 (9-20) mg/dL Creatinine 3.80 H (0.66-1.25) mg/dL Est GFR (CKD-EPI)AfAm 17 (>60 ml/min/1.73 sqM) Est GFR (CKD-EPI)NonAf 15 (>60 ml/min/1.73 sqM) Glucose 350 H (74-99) mg/dL Plasma Lactic Acid John 1.8 (0.7-2.0) mmol/L Calcium 9.6 (8.4-10.2) mg/dL Total Bilirubin 0.6 (0.2-1.3) mg/dL AST 17 (17-59) U/L ALT 10 (4-49) U/L Alkaline Phosphatase 128 H (38-126) U/L C-Reactive Protein 27.8 H (<10.0) mg/L Total Protein 8.0 (6.3-8.2) g/dL Albumin 3.9 (3.5-5.0) g/dL Disposition Clinical Impression: Osteomyelitis, Diabetic foot ulcer, Dialysis patient Disposition: ADMITTED IP TO THIS [facility] Condition: Good Is patient prescribed a controlled substance at d/c from ED?: No Referrals: Nell Rosen MD [Primary Care Provider] - 1-2 days Time of Disposition: 14:50
[2019-11-06] MEDS ORDERED: CALCIUM ACETATE 667 MG TAB PO PRN (15:04)
[2019-11-06] MEDS ORDERED: ACETAMINOPHEN TAB 325 MG TAB PO PRN (15:04)
[2019-11-06 15:05] LABS: Glucose,Whole Blood 344 mg/dL (75-99)
--- NOTE | 2019-11-06 16:12 | P.HPIM ---
History of Present Illness 69-year-old male with history of diabetes and on dialysis on Sunday and Sunday. He presents emergency room today for concern for worsening wound over his right foot at the metatarsal areas of black tissue over the first s econd and third toe. Patient reports that he is not on any antibiotics currently. He does state that he was sent here for further evaluation and likely IV antibiotics to heal the infection. patient follows up in wound carewas undergoing frequent debridement without any significant improvement are healing of the wound and the there is a concern patient wound is infected and the possible divorce, that is because of which patient was sent in to ER and patient is found to have ostial LAD and the x-ray. Infectious disease was consulted will consult vascular surgery patient was started on broad-spectrum antibiotics won't cultures blood cultures were obtained. Review of Systems REVIEW OF SYSTEMS: CONSTITUTIONAL: No fever, no malaise, no fatigue. HEENT: No recent visual problems or hearing problems. Denied any sore throat. CARDIOVASCULAR: No chest pain, orthopnea, PND, no palpitations, no syncope. PULMONARY: No shortness of breath, no cough, no hemoptysis. GASTROINTESTINAL: No diarrhea, no nausea, no vomiting, no abdominal pain. NEUROLOGICAL: No headaches, no weakness, no numbness. HEMATOLOGICAL: Denies any bleeding or petechiae. GENITOURINARY: Denies any burning micturition, frequency, or urgency. MUSCULOSKELETAL/RHEUMATOLOGICAL: Denies any joint pain, swelling, or any muscle pain. ENDOCRINE: Denies any polyuria or polydipsia. The rest of the 14-point review of systems is negative. Past Medical History Past Medical History: Atrial Fibrillation, Asthma, Heart Failure, Diabetes Mellitus, Dialysis, Eye Disorder, GERD/Reflux, Hypertension, Osteoarthritis (OA), Pneumonia, Renal Disease, Respiratory Disorder, Rheumatoid Arthritis (RA), Seizure Disorder Additional Past Medical History / Comment(s): ESRD with hemodialysis, mineral bone disease, chronic anemia, IDDM type II, diabetic retinopathy-"legally blind", chronic neuropathy in toes/bilateral feet and left leg, bilateral lower leg edema, cellulitis bilateral lower legs, bilateral leg/foot wounds/sees Dr. 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 History of Any Multi-Drug Resistant Organisms: MRSA Date of last positivie culture/infection: 10/09/19 MDRO Source:: foot MRSA Past Surgical History: Hernia Repair, Orthopedic Surgery Additional Past Surgical History / Comment(s): Bilateral cataract surgery, insertion dialysis catheter left arm then had a procedure done to dialysis catheter at [facility]-cannot recall exactly what was done, PICC line insertion/removed, bilateral inguinal hernina repairs, colonoscopy/polypectomy, R shoulder rotator cuff repair, debridements bilateral feet. Past Anesthesia/Blood Transfusion Reactions: No Reported Reaction Additional Past Anesthesia/Blood Transfusion Reaction / Comment(s): Pt received blood in past without reaction. Smoking Status: Former smoker - Past Family History Mother Family Medical History: Diabetes Mellitus Father Family Medical History: Cancer Additional Family Medical History / Comment(s): Metastatic cancer. Pt cannot recall primary. Medications and Allergies Home Medications Medication Instructions Recorded Confirmed Type Etanercept [Enbrel] 50 mg SQ LUU 06/12/14 11/06/19 History NIFEdipine [NIFEdipine ER] 60 mg PO DAILY 06/12/14 11/06/19 History Aspirin EC [Ecotrin Low Dose] 81 mg PO DAILY 07/31/18 11/06/19 History gemfibroziL [Lopid] 600 mg PO BID 07/31/18 11/06/19 History Budesonide-Formot 160-4.5 Mcg 2 puff INHALATION RT-BID 02/26/19 11/06/19 History [Symbicort 160-4.5 Mcg Inhaler] Calcium Acetate [PhosLo] 2,001 mg PO TID-W/MEALS 02/26/19 11/06/19 History Magnebind 250/300mg 3 tab PO BID-W/MEALS 02/26/19 11/06/19 History Metoprolol Tartrate [Lopressor] 50 mg PO BID 02/26/19 11/06/19 History Omeprazole 40 mg PO DAILY 02/26/19 11/06/19 History Prorenal + D 1 tab PO DAILY 02/26/19 11/06/19 History Albuterol Nebulized [Ventolin 2.5 mg INHALATION RT-TID 03/17/19 11/06/19 History Nebulized] Insulin Glargine,Hum.rec.anlog 35 unit SQ HS 06/16/19 11/06/19 History [Lantus Solostar] levOCARNitine [Levocarnitine] 330 mg PO TID-W/MEALS 06/27/19 11/06/19 History ALPRAZolam [Xanax] 0.25 mg PO TID PRN 3 Days #9 tab 07/09/19 11/06/19 Rx Acetaminophen Tab [Tylenol] 650 mg PO Q6HR PRN tab 07/09/19 11/06/19 Rx Calcium Acetate [PhosLo] 667 mg PO DAILY PRN 08/20/19 11/06/19 History Furosemide [Lasix] 40 mg PO BID 08/20/19 11/06/19 History Insulin Glargine,Hum.rec.anlog See Protocol SQ HS PRN 08/20/19 11/06/19 History [Lantus Solostar] Insulin Lispro [humaLOG Kwikpen] See Protocol SQ AC-TID PRN 08/20/19 11/06/19 History Vit C/E/Zn/Coppr/Lutein/Zeaxan 1 cap PO DAILY 08/20/19 11/06/19 History [Preservision Areds 2 Softgel] Darbepoetin Dinh [Aranesp] 40 mcg SQ Q7D syringe 08/28/19 11/06/19 Rx Folic Acid 1 mg PO DAILY@1200 30 Days #30 tab 08/28/19 11/06/19 Rx Thiamine [Vitamin B-1] 100 mg PO DAILY@1200 30 Days #30 08/28/19 11/06/19 Rx tab Multivitamins, Thera [Multivitamin 1 tab PO DAILY@1200 11/06/19 11/06/19 History (formulary)] Allergies Allergy/AdvReac Type Severity Reaction Status Date / Time sulfamethoxazole AdvReac Unknown Nausea & Verified 11/06/19 13:52 [From Bactrim] Vomiting trimethoprim [From Bactrim] AdvReac Unknown Nausea & Verified 11/06/19 13:52 Vomiting Physical Exam Vitals: Vital Signs Temp Pulse Resp BP Pulse Ox 11/06/19 15:00 85 18 99 11/06/19 14:00 18 99 11/06/19 13:53 83 18 144/77 99 11/06/19 12:53 18 11/06/19 12:51 97.8 F 79 20 156/81 100 Intake and Output 11/06/19 11/06/19 11/06/19 06:59 14:59 22:59 Other: Weight 102.058 kg 102.058 kg PHYSICAL EXAMINATION: GENERAL: The patient is alert and oriented x3, not in any acute distress. Well developed, well nourished. HEENT: Pupils are round and equally reacting to light. EOMI. No scleral icterus. No conjunctival pallor. Normocephalic, atraumatic. No pharyngeal erythema. No thyromegaly. CARDIOVASCULAR: S1 and S2 present. No murmurs, rubs, or gallops. PULMONARY: Chest is clear to auscultation, no wheezing or crackles. ABDOMEN: Soft, nontender, nondistended, normoactive bowel sounds. No palpable organomegaly. MUSCULOSKELETAL: No joint swelling or deformity. EXTREMITIES: No cyanosis, clubbing, or pedal edema. NEUROLOGICAL: Gross neurological examination did not reveal any focal deficits. SKIN: had has multiple ulcers in the right leg patient does have venous stasis dermatosis of the right leg and there is a stage IV ulcer underneath the lateral and plantaraspect of the right foot with surrounding cellulitis some purulent drainage. Results CBC & Chem 7: 11/06/19 13:25 11/06/19 13:25 Labs: Abnormal Lab Results - Last 24 Hours (Table) 11/06/19 11/06/19 11/06/19 Range/Units 13:25 13:25 14:55 RBC 4.10 L (4.30-5.90) m/uL MCV 105.9 H (80.0-100.0) fL MCHC 29.8 L (31.0-37.0) g/dL Lymphocytes # 0.9 L (1.0-4.8) k/uL Sodium 136 L (137-145) mmol/L Chloride 91 L (98-107) mmol/L Carbon Dioxide 33 H (22-30) mmol/L Creatinine 3.80 H (0.66-1.25) mg/dL Glucose 350 H (74-99) mg/dL POC Glucose (mg/dL) 344 H (75-99) mg/dL Alkaline Phosphatase 128 H (38-126) U/L C-Reactive Protein 27.8 H (<10.0) mg/L Thrombosis Risk Factor Assmnt - Choose All That Apply Any of the Below Risk Factors Present?: Yes Each Factor Represents 1 point: Obesity (BMI >25), Serious lung disease incl. pneumonia (< 1month) Other Risk Factors: Yes Each Risk Factor Represents 2 Points: Age 61-74 years Other congenital or acquired thrombophilia - If yes, enter type in comment: No Thrombosis Risk Factor Assessment Total Risk Factor Score: 4 Thrombosis Risk Factor Assessment Level: Moderate Risk Assessment and Plan Plan: -infected right foot ulcer with osteomyelitis: Patient was started on vancomycin and Zosyn which will be continued will obtain wound cultures and blood cultures. Infectious disease and vascular surgery was consulted. Patient has diabetic foot ulcer patient does have severe diabetic peripheral neuropathy. -Type 2 diabetes mellitus uncontrolled and elevated blood sugars patient and his dose will be increased and patient was started on pre-meal insulin. 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 DVT prophylaxis with subcutaneous heparin
[2019-11-06] MEDS: FUROSEMIDE 40 MG TAB PO SCH (16:19)
[2019-11-06 17:09] LABS: Glucose,Whole Blood 310 mg/dL (75-99)
[2019-11-06] MEDS: INSULIN ASPART (NovoLOG) 100 UNIT/ML VIAL SQ SCH ×3 (17:11→21:23)
[2019-11-06] MEDS: MAGNEBIND PO SCH (17:12)
[2019-11-06] MEDS: CALCIUM ACETATE 667 MG TAB PO SCH (17:21)
[2019-11-06] MEDS: levOCARNitine (WITH SUGAR) 100 MG/ML BOTTLE PO SCH (17:22)
[2019-11-06] MEDS: ALBUTEROL NEBULIZED 2.5 MG/3 ML INHALATION SCH (19:24)
[2019-11-06] MEDS: SYMBICORT 160-4.5 MCG INHALER INHALATION SCH (19:24)
[2019-11-06 20:58] LABS: Glucose,Whole Blood 201 mg/dL (75-99)
[2019-11-06] MEDS ORDERED: INSULIN DETEMIR (LEVEMIR) 100 UNIT/ML SYR SQ SCH (21:00)
[2019-11-06] MEDS: METOPROLOL TARTRATE 50 MG TAB PO SCH (21:22)
[2019-11-06] MEDS: INSULIN DETEMIR (LEVEMIR) 100 UNIT/ML SYR SQ SCH (21:22)
[2019-11-06] MEDS: PIPERACILLIN-TAZOBACTAM 3.375 GM in SODIUM CHLORIDE 0.9% 100 ML IVPB SCH (22:43)
[2019-11-07] MEDS: INSULIN ASPART (NovoLOG) 100 UNIT/ML VIAL SQ SCH ×9 (00:15→21:26)
[2019-11-07] MEDS: HEPARIN SODIUM,PORCINE 5,000 UNIT/ML 1 ML VIAL SQ SCH ×4 (00:40→23:23)
[2019-11-07 07:00] LABS: Glucose,Whole Blood 70 mg/dL (75-99)
[2019-11-07] MEDS ORDERED: PANTOPRAZOLE 40 MG TABLET PO SCH (07:30)
[2019-11-07] MEDS: SYMBICORT 160-4.5 MCG INHALER INHALATION SCH ×2 (07:33→19:48)
[2019-11-07] MEDS: ALBUTEROL NEBULIZED 2.5 MG/3 ML INHALATION SCH ×3 (07:33→19:48)
[2019-11-07 08:32] LABS: Glucose,Whole Blood 62 mg/dL (75-99)
[2019-11-07] MEDS ORDERED: NON FORMULARY DRUG (Vit C/E/Zn/Coppr/Lutein/Zeaxan [Preservision Areds 2 Softgel] 1 CAP) PO SCH (09:00)
[2019-11-07] MEDS ORDERED: PANTOPRAZOLE 40 MG/10 ML VIAL IV SCH (09:00)
[2019-11-07] MEDS: PIPERACILLIN-TAZOBACTAM 3.375 GM in SODIUM CHLORIDE 0.9% 100 ML IVPB SCH ×3 (09:06→23:33)
[2019-11-07] MEDS: FENOFIBRATE 160 MG TAB PO SCH (09:07)
[2019-11-07] MEDS: FOLIC ACID 1 MG TAB PO SCH (09:07)
[2019-11-07] MEDS: ASPIRIN 81 MG PO SCH (09:07)
--- NOTE | 2019-11-07 10:54 | P.CONS ---
History of Present Illness - Reason for Consult Consult date: 11/06/19 Diabetic wound and osteomyelitis right foot Requesting physician: Adan Arnold - Chief Complaint Nonhealing right foot woundx weeks - History of Present Illness Patient is 69 year male with a past medical history significant for end-stage renal disease on hemodialysis Sunday the patient also have a history of diabetes mellitus and right foot osteomyelitis, patient local wound culture positive for multiple pathogens including enterococcus Citrobacter [place] anaerobes and the patient was advised six-week course of vancomycin for Mr. dose to dialysis along with Cipro and Flagyl for 6 weeks that was on 08/28/2019, unfortunately patient never came to the office for follow-up and his anybody would discontinue after 6 weeks patient continue to follow up with [facility] [place], patient recently did have a cultures obtained from his right foot wound on 10/09/2019 which grew MRSA the patient not very clear if he received an antibiotic for that positive cultures, patient has been sent to the ER from the wound care center with concern for worsening right foot wound and underlying ulcerative colitis any further antibiotic therapy, patient denies having any fever or any chills the patient denies having any chest pain or shortness of breath or cough. Denies significant pain to the right foot, at times dull aching pain especially when he walks on it. Some mild blood stained drainage from it with the Center the patient has been evaluated by the ER physician on arrival to the ER, the patient was afebrile the patient did have a normal white count. He did have x-rays of the right foot shows structure changes involving the fifth metatarsal compatible with osteomyelitis the patient was started on vancomycin and Zosyn and admitted to the hospital infectious disease was consulted for further management of antibiotic therapy Review of Systems Positive point has been mentioned in the HPI rest of the systems are negative Past Medical History Past Medical History: Atrial Fibrillation, Asthma, Heart Failure, Diabetes Mellitus, Dialysis, Eye Disorder, GERD/Reflux, Hypertension, Osteoarthritis (OA), Pneumonia, Renal Disease, Respiratory Disorder, Rheumatoid Arthritis (RA), Seizure Disorder Additional Past Medical History / Comment(s): ESRD with hemodialysis, mineral bone disease, chronic anemia, IDDM type II, diabetic retinopathy-"legally blind", chronic neuropathy in toes/bilateral feet and left leg, bilateral lower leg edema, cellulitis bilateral lower legs, bilateral leg/foot wounds/sees Dr. 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 History of Any Multi-Drug Resistant Organisms: MRSA Year Discovered:: 10/09/19 MDRO Source:: foot MRSA Past Surgical History: Hernia Repair, Orthopedic Surgery Additional Past Surgical History / Comment(s): Bilateral cataract surgery, insertion dialysis catheter left arm then had a procedure done to dialysis catheter at [facility]-cannot recall exactly what was done, PICC line insertion/removed, bilateral inguinal hernina repairs, colonoscopy/polypectomy, R shoulder rotator cuff repair, debridements bilateral feet. Past Anesthesia/Blood Transfusion Reactions: No Reported Reaction Additional Past Anesthesia/Blood Transfusion Reaction / Comm: Pt received blood in past without reaction. Smoking Status: Former smoker - Past Family History Mother Family Medical History: Diabetes Mellitus Father Family Medical History: Cancer Additional Family Medical History / Comment(s): Metastatic cancer. Pt cannot recall primary. Medications and Allergies Home Medications Medication Instructions Recorded Confirmed Type Etanercept [Enbrel] 50 mg SQ LUU 06/12/14 11/06/19 History NIFEdipine [NIFEdipine ER] 60 mg PO DAILY 06/12/14 11/06/19 History Aspirin EC [Ecotrin Low Dose] 81 mg PO DAILY 07/31/18 11/06/19 History gemfibroziL [Lopid] 600 mg PO BID 07/31/18 11/06/19 History Budesonide-Formot 160-4.5 Mcg 2 puff INHALATION RT-BID 02/26/19 11/06/19 History [Symbicort 160-4.5 Mcg Inhaler] Calcium Acetate [PhosLo] 2,001 mg PO TID-W/MEALS 02/26/19 11/06/19 History Magnebind 250/300mg 3 tab PO BID-W/MEALS 02/26/19 11/06/19 History Metoprolol Tartrate [Lopressor] 50 mg PO BID 02/26/19 11/06/19 History Omeprazole 40 mg PO DAILY 02/26/19 11/06/19 History Prorenal + D 1 tab PO DAILY 02/26/19 11/06/19 History Albuterol Nebulized [Ventolin 2.5 mg INHALATION RT-TID 03/17/19 11/06/19 History Nebulized] Insulin Glargine,Hum.rec.anlog 35 unit SQ HS 06/16/19 11/06/19 History [Lantus Solostar] levOCARNitine [Levocarnitine] 330 mg PO TID-W/MEALS 06/27/19 11/06/19 History ALPRAZolam [Xanax] 0.25 mg PO TID PRN 3 Days #9 tab 07/09/19 11/06/19 Rx Acetaminophen Tab [Tylenol] 650 mg PO Q6HR PRN tab 07/09/19 11/06/19 Rx Calcium Acetate [PhosLo] 667 mg PO DAILY PRN 08/20/19 11/06/19 History Furosemide [Lasix] 40 mg PO BID 08/20/19 11/06/19 History Insulin Glargine,Hum.rec.anlog See Protocol SQ HS PRN 08/20/19 11/06/19 History [Lantus Solostar] Insulin Lispro [humaLOG Kwikpen] See Protocol SQ AC-TID PRN 08/20/19 11/06/19 History Vit C/E/Zn/Coppr/Lutein/Zeaxan 1 cap PO DAILY 08/20/19 11/06/19 History [Preservision Areds 2 Softgel] Darbepoetin Dinh [Aranesp] 40 mcg SQ Q7D syringe 08/28/19 11/06/19 Rx Folic Acid 1 mg PO DAILY@1200 30 Days #30 tab 08/28/19 11/06/19 Rx Thiamine [Vitamin B-1] 100 mg PO DAILY@1200 30 Days #30 08/28/19 11/06/19 Rx tab Multivitamins, Thera [Multivitamin 1 tab PO DAILY@1200 11/06/19 11/06/19 History (formulary)] Allergies Allergy/AdvReac Type Severity Reaction Status Date / Time sulfamethoxazole AdvReac Unknown Nausea & Verified 11/06/19 13:52 [From Bactrim] Vomiting trimethoprim [From Bactrim] AdvReac Unknown Nausea & Verified 11/06/19 13:52 Vomiting Physical Exam Vitals: Vital Signs Temp Pulse Pulse Resp BP BP Pulse Ox 11/06/19 16:37 98.6 F 84 18 161/74 100 11/06/19 16:15 97.8 F 85 18 158/87 99 11/06/19 16:00 85 18 158/87 99 11/06/19 15:00 85 18 99 11/06/19 14:00 18 99 11/06/19 13:53 83 18 144/77 99 11/06/19 12:53 18 11/06/19 12:51 97.8 F 79 20 156/81 100 Intake and Output 11/06/19 11/06/19 11/06/19 06:59 14:59 22:59 Other: Weight 102.058 kg 102.058 kg GENERAL DESCRIPTION: Elderly male lying in bed, no distress. No tachypnea or accessory muscle of respiration use. HEENT: Shows Pallor , no scleral icterus. Oral mucous membrane is dry. No pharyngeal erythema or thrush NECK: Trachea central, no thyromegaly. LUNGS: Unlabored breathing. Clear to auscultation anteriorly. No wheeze or crackle. HEART: S1, S2, regular rate and rhythm. No loud murmur ABDOMEN: Soft, no tenderness , guarding or rigidity, no organomegaly EXTREMITIES: Right foot plantar wound at the base of the fifth metatarsal wounds look stable but not white with some inflammatory changes no purulence was noticed SKIN: No rash, no masses palpable. NEUROLOGICAL: The patient is awake, alert, oriented x3, mood and affect normal. Results CBC & Chem 7: 11/06/19 13:25 11/06/19 13:25 Labs: Abnormal Lab Results - Last 24 Hours (Table) 11/06/19 11/06/19 11/06/19 Range/Units 13:25 13:25 14:55 RBC 4.10 L (4.30-5.90) m/uL MCV 105.9 H (80.0-100.0) fL MCHC 29.8 L (31.0-37.0) g/dL Lymphocytes # 0.9 L (1.0-4.8) k/uL Sodium 136 L (137-145) mmol/L Chloride 91 L (98-107) mmol/L Carbon Dioxide 33 H (22-30) mmol/L Creatinine 3.80 H (0.66-1.25) mg/dL Glucose 350 H (74-99) mg/dL POC Glucose (mg/dL) 344 H (75-99) mg/dL Alkaline Phosphatase 128 H (38-126) U/L C-Reactive Protein 27.8 H (<10.0) mg/L 11/06/19 Range/Units 17:07 RBC (4.30-5.90) m/uL MCV (80.0-100.0) fL MCHC (31.0-37.0) g/dL Lymphocytes # (1.0-4.8) k/uL Sodium (137-145) mmol/L Chloride (98-107) mmol/L Carbon Dioxide (22-30) mmol/L Creatinine (0.66-1.25) mg/dL Glucose (74-99) mg/dL POC Glucose (mg/dL) 310 H (75-99) mg/dL Alkaline Phosphatase (38-126) U/L C-Reactive Protein (<10.0) mg/L Assessment and Plan Assessment: 1- patient with right diabetic foot wound on the plantar aspect at the base of the fifth metatarsal head in this patient was recently treated with a 6 week course of IV and ordered by therapy for osteomyelitis as local wound culture positive for Citrobacter probable depression enterococcus and anaerobes unfortunately the patient never follow-up after discharge from hospital and antibiotic will discontinue after 6 weeks he recently also have a cultures obtained from the right foot which grew MRSA and was being admitted to the hospital with worsening and concern for underlyingOsteomyelitis and x-rays of the foot confirmed the same finding 2- end-stage renal disease on hemodialysis 3- sulfa ALLERGY (1) Foot osteomyelitis, right Current Visit: Yes Status: Acute Code(s): M86.9 - OSTEOMYELITIS, UNSPECIFIED SNOMED Code(s): 9111069269992632 (2) Diabetic foot ulcer Current Visit: Yes Status: Acute Code(s): E11.621 - TYPE 2 DIABETES MELLITUS WITH FOOT ULCER SNOMED Code(s): 464080995 Plan: 1- await vascular surgery evaluation debridement and deep cultures 2-Vancomycin pharmacy to dose target trough of 15 while watching his kidney function and Vanco trough closely 3-Zosyn 3.375 gm every 12 hours We will follow on clinical condition and cultures to further adjust medication if needed Thank you for this consultation will follow this patient with you Time with Patient: Greater than 30
[2019-11-07] MEDS: CALCIUM ACETATE 667 MG TAB PO SCH ×3 (11:41→18:01)
[2019-11-07] MEDS: MAGNEBIND PO SCH ×2 (11:41→18:03)
[2019-11-07] MEDS: levOCARNitine (WITH SUGAR) 100 MG/ML BOTTLE PO SCH ×3 (11:41→18:02)
[2019-11-07] MEDS: NON FORMULARY DRUG (Prorenal + D 1 TAB) PO SCH (11:42)
[2019-11-07] MEDS ORDERED: VANCOMYCIN 1,750 MG in SODIUM CHLORIDE 0.9% 500 ML 500 ML IVPB ONE (12:00)
[2019-11-07 12:10] LABS: Glucose,Whole Blood 111 mg/dL (75-99)
[2019-11-07] MEDS: THIAMINE 100 MG TAB PO SCH (13:04)
[2019-11-07] MEDS: MULTIVITAMINS, THERA 1 EACH TAB PO SCH (13:04)
--- NOTE | 2019-11-07 13:05 | P.GSCN ---
History of Present Illness Consult date: 11/07/19 Reason for Consult: Nonhealing wound of the right foot with evidence of osteomyelitis to fifth metatarsal History of present illness: This is a 69-year-old male with past medical history significant for end-stage renal disease who is on hemodialysis currently Mondays, Wednesdays, and Fridays, atrial fibrillation, coronary artery disease, diabetes mellitus, right foot osteomyelitis and local nonhealing wounds to the plantar surface the lateral aspect of the right foot. He is status post treatment per of a 6 week course of IV antibiotics. His been following with the wound care center with Dr. Scales he recently had a wound culture from his right foot on 10/09/2019 which grew MRSA. The patient states he has not received any IV antibiotics recently. He denies any fevers or chills, redness breath or chest pain. He has had bilateral Unna boots applied. He has a dressing to the right lower extremity with some blood tinged drainage. X-ray of the right foot shows stricture changes involving the fifth metatarsal compatible with osteomyelitis. Infectious disease is following the patient has started him on vancomycin and Zosyn. Patient had previous arterial ultrasound of bilateral lower extremities in June 2019 with an AVERY of 0.52 on the right and 0.66 on the left. Review of Systems 14 point review of systems was completed and all pertinent positives and negatives as stated in the HPI. Past Medical History Past Medical History: Atrial Fibrillation, Asthma, Heart Failure, Diabetes Mellitus, Dialysis, Eye Disorder, GERD/Reflux, Hypertension, Osteoarthritis (OA), Pneumonia, Renal Disease, Respiratory Disorder, Rheumatoid Arthritis (RA), Seizure Disorder Additional Past Medical History / Comment(s): ESRD with hemodialysis, mineral bone disease, chronic anemia, IDDM type II, diabetic retinopathy-"legally blind", chronic neuropathy in toes/bilateral feet and left leg, bilateral lower leg edema, cellulitis bilateral lower legs, bilateral leg/foot wounds/sees Dr. 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 History of Any Multi-Drug Resistant Organisms: MRSA Year Discovered:: 10/09/19 MDRO Source:: foot MRSA Past Surgical History: Hernia Repair, Orthopedic Surgery Additional Past Surgical History / Comment(s): Bilateral cataract surgery, insertion dialysis catheter left arm then had a procedure done to dialysis catheter at [facility]-cannot recall exactly what was done, PICC line insertion/removed, bilateral inguinal hernina repairs, colonoscopy/polypectomy, R shoulder rotator cuff repair, debridements bilateral feet. Past Anesthesia/Blood Transfusion Reactions: No Reported Reaction Additional Past Anesthesia/Blood Transfusion Reaction / Comm: Pt received blood in past without reaction. Smoking Status: Former smoker - Past Family History Mother Family Medical History: Diabetes Mellitus Father Family Medical History: Cancer Additional Family Medical History / Comment(s): Metastatic cancer. Pt cannot recall primary. Medications and Allergies Home Medications Medication Instructions Recorded Confirmed Type Etanercept [Enbrel] 50 mg SQ LUU 06/12/14 11/06/19 History NIFEdipine [NIFEdipine ER] 60 mg PO DAILY 06/12/14 11/06/19 History Aspirin EC [Ecotrin Low Dose] 81 mg PO DAILY 07/31/18 11/06/19 History gemfibroziL [Lopid] 600 mg PO BID 07/31/18 11/06/19 History Budesonide-Formot 160-4.5 Mcg 2 puff INHALATION RT-BID 02/26/19 11/06/19 History [Symbicort 160-4.5 Mcg Inhaler] Calcium Acetate [PhosLo] 2,001 mg PO TID-W/MEALS 02/26/19 11/06/19 History Magnebind 250/300mg 3 tab PO BID-W/MEALS 02/26/19 11/06/19 History Metoprolol Tartrate [Lopressor] 50 mg PO BID 02/26/19 11/06/19 History Omeprazole 40 mg PO DAILY 02/26/19 11/06/19 History Prorenal + D 1 tab PO DAILY 02/26/19 11/06/19 History Albuterol Nebulized [Ventolin 2.5 mg INHALATION RT-TID 03/17/19 11/06/19 History Nebulized] Insulin Glargine,Hum.rec.anlog 35 unit SQ HS 06/16/19 11/06/19 History [Lantus Solostar] levOCARNitine [Levocarnitine] 330 mg PO TID-W/MEALS 06/27/19 11/06/19 History ALPRAZolam [Xanax] 0.25 mg PO TID PRN 3 Days #9 tab 07/09/19 11/06/19 Rx Acetaminophen Tab [Tylenol] 650 mg PO Q6HR PRN tab 07/09/19 11/06/19 Rx Calcium Acetate [PhosLo] 667 mg PO DAILY PRN 08/20/19 11/06/19 History Furosemide [Lasix] 40 mg PO BID 08/20/19 11/06/19 History Insulin Glargine,Hum.rec.anlog See Protocol SQ HS PRN 08/20/19 11/06/19 History [Lantus Solostar] Insulin Lispro [humaLOG Kwikpen] See Protocol SQ AC-TID PRN 08/20/19 11/06/19 History Vit C/E/Zn/Coppr/Lutein/Zeaxan 1 cap PO DAILY 08/20/19 11/06/19 History [Preservision Areds 2 Softgel] Darbepoetin Dinh [Aranesp] 40 mcg SQ Q7D syringe 08/28/19 11/06/19 Rx Folic Acid 1 mg PO DAILY@1200 30 Days #30 tab 08/28/19 11/06/19 Rx Thiamine [Vitamin B-1] 100 mg PO DAILY@1200 30 Days #30 08/28/19 11/06/19 Rx tab Multivitamins, Thera [Multivitamin 1 tab PO DAILY@1200 11/06/19 11/06/19 History (formulary)] Allergies Allergy/AdvReac Type Severity Reaction Status Date / Time sulfamethoxazole AdvReac Unknown Nausea & Verified 11/06/19 13:52 [From Bactrim] Vomiting trimethoprim [From Bactrim] AdvReac Unknown Nausea & Verified 11/06/19 13:52 Vomiting Surgical - Exam Vital Signs Temp Pulse Resp BP Pulse Ox 97.8 F 79 20 156/81 100 11/06/19 12:51 11/06/19 12:51 11/06/19 12:51 11/06/19 12:51 11/06/19 12:51 General appearance: The patient is alert, oriented, in no acute distress. HET: Head is normocephalic and atraumatic. Neck: Supple without lymphadenopathy. Trachea midline. Heart: S1 S2. Regular rate and rhythm. Lungs: No crackles or wheezes are heard. Abdomen: Soft, nontender, nondistended with bowel sounds. Extremities: Right lower extremity with Lg wrap. Left lower extremity with dressing that had a small amount of blood-tinged drainage. Patient has evidence of left prior Unna boot. Skin is dry,cracked and flaking. 2 small plantar wounds to the lateral side of the right foot at the base of the fifth metatarsal with erythema and mild swelling. Palpable bilateral femoral pulses. Biphasic DP Doppler signal, monophasic PT Doppler signal. Refill less than 5 seconds. Sensorimotor intact. Neurological: No focal deficits. Strength and sensation are grossly intact. Results X-ray of right foot showing evidence of destructive changes involving the fifth metatarsal compatible with osteomyelitis - Labs 11/06/19 13:25 11/06/19 13:25 Abnormal Lab Results - Last 24 Hours (Table) 11/06/19 11/06/19 11/06/19 Range/Units 13:25 13:25 14:55 RBC 4.10 L (4.30-5.90) m/uL MCV 105.9 H (80.0-100.0) fL MCHC 29.8 L (31.0-37.0) g/dL Lymphocytes # 0.9 L (1.0-4.8) k/uL Sodium 136 L (137-145) mmol/L Chloride 91 L (98-107) mmol/L Carbon Dioxide 33 H (22-30) mmol/L Creatinine 3.80 H (0.66-1.25) mg/dL Glucose 350 H (74-99) mg/dL POC Glucose (mg/dL) 344 H (75-99) mg/dL Alkaline Phosphatase 128 H (38-126) U/L C-Reactive Protein 27.8 H (<10.0) mg/L 11/06/19 11/06/19 11/07/19 Range/Units 17:07 20:52 06:52 RBC (4.30-5.90) m/uL MCV (80.0-100.0) fL MCHC (31.0-37.0) g/dL Lymphocytes # (1.0-4.8) k/uL Sodium (137-145) mmol/L Chloride (98-107) mmol/L Carbon Dioxide (22-30) mmol/L Creatinine (0.66-1.25) mg/dL Glucose (74-99) mg/dL POC Glucose (mg/dL) 310 H 201 H 70 L (75-99) mg/dL Alkaline Phosphatase (38-126) U/L C-Reactive Protein (<10.0) mg/L 11/07/19 Range/Units 08:11 RBC (4.30-5.90) m/uL MCV (80.0-100.0) fL MCHC (31.0-37.0) g/dL Lymphocytes # (1.0-4.8) k/uL Sodium (137-145) mmol/L Chloride (98-107) mmol/L Carbon Dioxide (22-30) mmol/L Creatinine (0.66-1.25) mg/dL Glucose (74-99) mg/dL POC Glucose (mg/dL) 62 L (75-99) mg/dL Alkaline Phosphatase (38-126) U/L C-Reactive Protein (<10.0) mg/L Microbiology - Last 24 Hours (Table) 11/06/19 16:20 Gram Stain - Preliminary Foot - Right Wound Culture - Preliminary Diabetes panel 11/06/19 Range/Units 13:25 Sodium 136 L (137-145) mmol/L Potassium 4.3 (3.5-5.1) mmol/L Chloride 91 L (98-107) mmol/L Carbon Dioxide 33 H (22-30) mmol/L BUN 20 (9-20) mg/dL Creatinine 3.80 H (0.66-1.25) mg/dL Glucose 350 H (74-99) mg/dL Calcium 9.6 (8.4-10.2) mg/dL AST 17 (17-59) U/L ALT 10 (4-49) U/L Alkaline Phosphatase 128 H (38-126) U/L Total Protein 8.0 (6.3-8.2) g/dL Albumin 3.9 (3.5-5.0) g/dL Calcium panel 11/06/19 Range/Units 13:25 Calcium 9.6 (8.4-10.2) mg/dL Albumin 3.9 (3.5-5.0) g/dL Pituitary panel 11/06/19 Range/Units 13:25 Sodium 136 L (137-145) mmol/L Potassium 4.3 (3.5-5.1) mmol/L Chloride 91 L (98-107) mmol/L Carbon Dioxide 33 H (22-30) mmol/L BUN 20 (9-20) mg/dL Creatinine 3.80 H (0.66-1.25) mg/dL Glucose 350 H (74-99) mg/dL Calcium 9.6 (8.4-10.2) mg/dL Adrenal panel 11/06/19 Range/Units 13:25 Sodium 136 L (137-145) mmol/L Potassium 4.3 (3.5-5.1) mmol/L Chloride 91 L (98-107) mmol/L Carbon Dioxide 33 H (22-30) mmol/L BUN 20 (9-20) mg/dL Creatinine 3.80 H (0.66-1.25) mg/dL Glucose 350 H (74-99) mg/dL Calcium 9.6 (8.4-10.2) mg/dL Total Bilirubin 0.6 (0.2-1.3) mg/dL AST 17 (17-59) U/L ALT 10 (4-49) U/L Alkaline Phosphatase 128 H (38-126) U/L Total Protein 8.0 (6.3-8.2) g/dL Albumin 3.9 (3.5-5.0) g/dL Assessment and Plan Assessment: 1. Osteomyelitis of the right foot fifth metatarsal 2. Nonhealing right diabetic foot ulcer 3. Chronic peripheral arterial disease 4. Diabetes mellitus Plan: Dr. Arguelles had long discussion with patient regarding the need for right fifth toe amputation with possibility of fourth metatarsal amputation. The patient seemingly understands and is agreeable to proceed with procedure. The plan at this time is that the patient will be nothing by mouth after midnight. Patient is scheduled to go to the OR tomorrow with Dr. Arguelles for a right fifth the tarsal amputation, possibly fourth metatarsal amputation and debridement of the right foot with possibility of a wound VAC. Continue IV antibiotics per infectious disease recommendation. Hold morning dose of heparin. Thank you for this consultation allowing us to take part in the plan of care of your patient during his hospital stay. The above dictated assessment and findings were discussed with Dr. Arguelles. The impression and plan of care have been directed as dictated.
[2019-11-07] MEDS: ACETAMINOPHEN TAB 325 MG TAB PO PRN (13:57)
--- NOTE | 2019-11-07 14:08 | CONS ---
CONSULTATION REASON FOR CONSULT: End-stage renal disease. HISTORY OF PRESENT ILLNESS: Patient is a 69-year-old male with end-stage renal disease, on hemodialysis on a Sunday, Sunday, Sunday schedule. Patient was admitted to the hospital due to worsening infection and wound on his right foot. He has been attending the wound clinic for a long time and has had chronic wounds and lower extremity cellulitis. He has been evaluated by Vascular Surgery and at this point there is discussion of possible amputation down the road, but prior to that,. patient will be maintained on antibiotics. No fever, chills, nausea, vomiting or abdominal pain. PAST MEDICAL HISTORY: Atrial fibrillation, end-stage renal disease, type 2 diabetes, hypertension, osteoarthritis, rheumatoid arthritis, seizure disorder, CKD mineral bone disorder, previous history of endocarditis, sepsis, chronic back pain, seizure disorder, neuropathy, chronic lower extremity wounds, history of MRSA infection. PAST SURGICAL HISTORY: Hernia repair, cataract surgery, AV fistula, PermCath placement removal, inguinal hernia, colonoscopy, rotator cuff repair, debridements both feet, polypectomy. SOCIAL HISTORY: Patient is a former smoker. No history of drug abuse or alcohol abuse. MEDICATIONS: Prior to admission included Enbrel, nifedipine, aspirin, Lopid, PhosLo, MagneBind, Lopressor, omeprazole, levocarnitine, Xanax, Tylenol, Lasix, PhosLo, insulin, folic acid, multivitamins. ALLERGIES: Include BACTRIM. REVIEW OF SYSTEMS: As per HPI. Other systems negative. PHYSICAL EXAMINATION: Patient is comfortable, awake, alert, oriented x3, not in any acute distress. Blood pressure was 115/67, heart rate 74 per minute, he is afebrile. Examination of the heart S1, S2. Examination of the lungs, bilateral breath sounds are heard. Abdomen is soft, nontender. Examination of the lower extremities shows chronic skin changes. Left foot is wrapped. Right foot shows discoloration of the toes on the third and fourth toes. [employer] exam is grossly intact. LABS: Show sodium 136, potassium 4.3, BUN 20, creatinine 3.8, hemoglobin 13.0 g/dL. ASSESSMENT: 1. End-stage renal disease, on hemodialysis on a Sunday, Sunday, Sunday schedule. Patient will be scheduled for hemodialysis today. 2. Chronic bilateral lower extremity wounds, being followed by Vascular Surgery with no plans for antibiotics currently. 3. Severe peripheral vascular disease. 4. History of volume overload, currently significantly improved. PLAN: Hemodialysis today, UF of about 2 L. Maintain levocarnitine. Continue antibiotics as per ID. Continue with MagneBind as the phosphate binder. MMODL / IJN: [id number] /
--- NOTE | 2019-11-07 16:05 | PN ---
PROGRESS NOTE DATE OF SERVICE: 11/07/2019 REASON FOR FOLLOWUP: Right diabetic foot infection with concern for underlying osteomyelitis. INTERVAL HISTORY: Patient is currently afebrile, has been breathing comfortably. The patient denies having any chest pain, no shortness of breath. no cough. No nausea, no vomiting. No abdominal pain or any worsening pain to the right foot. PHYSICAL EXAMINATION: Blood pressure is 126/60 with a pulse of 73, temperature 97.6, he is 99% on room air. General description is an elderly male, up in the chair in no distress. RESPIRATORY SYSTEM: Unlabored breathing, clear to auscultation anteriorly. HEART: S1, S2. Regular rate and rhythm. ABDOMEN: Soft, no tenderness. Right foot dressed up with no obvious drainage on the dressing. LABS: Wound culture currently pending. DIAGNOSTIC IMPRESSION AND PLAN: Patient with right diabetic foot infection with underlying osteomyelitis. Vascular Surgery has seen the patient, possible amputation. Continue with vancomycin and Zosyn while waiting for the deep culture to finalize. Continue supportive care. MMODL / IJN: [id number] /
--- NOTE | 2019-11-07 16:20 | P.PN ---
Subjective Progress Note Date: 11/07/19 Principal diagnosis: 69-year-old male with history of diabetes and on dialysis on Sunday and Sunday. He presents emergency room today for concern for worsening wound over his right foot at the metatarsal areas of black tissue over the first second and third toe. Patient reports that he is not on any antibiotics currently. He does state that he was sent here for further evaluation and likely IV antibiotics to heal the infection. patient follows up in wound rae as undergoing frequent debridement without any significant improvement are healing of the wound and the there is a concern patient wound is infected and the possible divorce, that is because of which patient was sent in to ER and patient is found to have ostial LAD and the x-ray. Infectious disease was consulted will consult vascular surgery patient was started on broad-spectrum antibiotics won't cultures blood cultures were obtained. 11/07/2019 Patient is seen in follow-up currently sitting up in the chair with no acute overnight issues. Patient is seen and evaluated by cardiovascular surgery and scheduled to undergo Right amputation of the right fifth toe with possible some parts of the lateral aspect of the right foot as well in the morning. Patient currently denies any chest pain, shortness of breath, or palpitations. Patient is afebrile. No reports of nausea or vomiting and patient is tolerating diet. Patient is currently awaiting to receive dialysis today. Objective - Vital Signs Vital signs: Vital Signs Temp 97.6 F 11/07/19 12:19 Pulse 73 11/07/19 12:19 Resp 17 11/07/19 12:19 BP 126/60 11/07/19 12:19 Pulse Ox 99 11/07/19 12:19 Intake & Output 11/06/19 11/07/19 11/07/19 18:59 06:59 18:59 Intake Total 590 Balance 590 Weight 102.058 kg Intake: Intake, IV Titration 390 Amount Sodium Chloride 0.9% 1, 390 000 ml @ 130 mls/hr IV . Q7H42M [facility] Rx#:[id number] Oral 200 Other: # Voids 2 # Bowel Movements 1 - Exam GENERAL: The patient is alert and oriented x3, not in any acute distress. Well developed, well nourished. HEENT: Pupils are round and equally reacting to light. EOMI. No scleral icterus. No conjunctival pallor. Normocephalic, atraumatic. No pharyngeal erythema. No thyromegaly. CARDIOVASCULAR: S1 and S2 present. No murmurs, rubs, or gallops. PULMONARY: Chest is clear to auscultation, no wheezing or crackles. ABDOMEN: Soft, nontender, nondistended, normoactive bowel sounds. No palpable organomegaly. MUSCULOSKELETAL: No joint swelling or deformity. EXTREMITIES: No cyanosis, clubbing, or pedal edema. NEUROLOGICAL: Gross neurological examination did not reveal any focal deficits. SKIN:Patient has multiple ulcers in the right leg patient does have venous stasis dermatosis of the right leg and there is a stage IV ulcer underneath the lateral and plantar aspect of the right foot with surrounding cellulitis some purulent drainage. Dressing and Lg wrap currently covering the site is dry and intact. - Labs CBC & Chem 7: 11/06/19 13:25 11/06/19 13:25 Labs: Abnormal Lab Results - Last 24 Hours (Table) 11/06/19 11/06/19 11/06/19 Range/Units 13:25 13:25 14:55 RBC 4.10 L (4.30-5.90) m/uL MCV 105.9 H (80.0-100.0) fL MCHC 29.8 L (31.0-37.0) g/dL Lymphocytes # 0.9 L (1.0-4.8) k/uL Sodium 136 L (137-145) mmol/L Chloride 91 L (98-107) mmol/L Carbon Dioxide 33 H (22-30) mmol/L Creatinine 3.80 H (0.66-1.25) mg/dL Glucose 350 H (74-99) mg/dL POC Glucose (mg/dL) 344 H (75-99) mg/dL Alkaline Phosphatase 128 H (38-126) U/L C-Reactive Protein 27.8 H (<10.0) mg/L 11/06/19 11/06/19 11/07/19 Range/Units 17:07 20:52 06:52 RBC (4.30-5.90) m/uL MCV (80.0-100.0) fL MCHC (31.0-37.0) g/dL Lymphocytes # (1.0-4.8) k/uL Sodium (137-145) mmol/L Chloride (98-107) mmol/L Carbon Dioxide (22-30) mmol/L Creatinine (0.66-1.25) mg/dL Glucose (74-99) mg/dL POC Glucose (mg/dL) 310 H 201 H 70 L (75-99) mg/dL Alkaline Phosphatase (38-126) U/L C-Reactive Protein (<10.0) mg/L 11/07/19 11/07/19 Range/Units 08:11 11:52 RBC (4.30-5.90) m/uL MCV (80.0-100.0) fL MCHC (31.0-37.0) g/dL Lymphocytes # (1.0-4.8) k/uL Sodium (137-145) mmol/L Chloride (98-107) mmol/L Carbon Dioxide (22-30) mmol/L Creatinine (0.66-1.25) mg/dL Glucose (74-99) mg/dL POC Glucose (mg/dL) 62 L 111 H (75-99) mg/dL Alkaline Phosphatase (38-126) U/L C-Reactive Protein (<10.0) mg/L Microbiology - Last 24 Hours (Table) 11/06/19 16:20 Gram Stain - Preliminary Foot - Right Wound Culture - Preliminary Assessment and Plan Assessment: -infected right foot ulcer with osteomyelitis: Patient was started on vancomycin and Zosyn which will be continued will obtain wound cultures and blood cultures. Infectious disease and vascular surgery Following. Patient has diabetic foot ulcer patient does have severe diabetic peripheral neuropathy.Patient scheduled to undergo possible right Fifth toe amputation In the morning -Type 2 diabetes mellitus uncontrolled and elevated blood sugars patient and his dose will be increased and patient was started on pre-meal insulin. -End-stage renal disease secondary to diabetic nephropathy patient will resume on his Sunday schedule of hemodialysis , nephrology Following. Patient scheduled to undergo hemodialysis today. 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 -DVT prophylaxis with subcutaneous heparin Plan: Hold heparin this evening and tomorrow as patient will be undergoing possible fifth toe right foot amputation and some of the lateral aspect of the right foot with Dr. Arguelles. Nephrology following and will continue on dialysis. Patient is currently maintained on IV antibiotics and will continue at this time. Infectious disease is following. Will repeat a.m. labs. Further recommendations to follow.
[2019-11-07 17:01] LABS: Glucose,Whole Blood 131 mg/dL (75-99)
[2019-11-07] MEDS: FUROSEMIDE 40 MG TAB PO SCH ×2 (17:10→18:01)
[2019-11-07] MEDS: METOPROLOL TARTRATE 50 MG TAB PO SCH ×2 (17:12→21:26)
[2019-11-07] MEDS: PANTOPRAZOLE 40 MG TABLET PO SCH (17:32)
[2019-11-07 21:12] LABS: Glucose,Whole Blood 282 mg/dL (75-99)
[2019-11-07] MEDS: INSULIN DETEMIR (LEVEMIR) 100 UNIT/ML SYR SQ SCH (21:27)
[2019-11-07] MEDS: ALPRAZolam 0.25 MG TAB PO PRN (21:27)
[2019-11-08 06:53] LABS: Glucose,Whole Blood 74 mg/dL (75-99)
[2019-11-08] MEDS ORDERED: DEXTROSE 50% SYRINGE 50 ML IVP STA (08:02)
[2019-11-08 08:17] LABS: Basophils # (A) 0.1 k/uL (0-0.2); Basophils % (A) 1 %; Eosinophils # (A) 0.4 k/uL (0-0.7); Eosinophils % (A) 5 %; HGB 12.7 gm/dL (13.0-17.5); Hypochromasia Slight; Lymphocytes # (A) 1.4 k/uL (1.0-4.8); Lymphocytes % (A) 18 %; MCH 32.5 pg (25.0-35.0); MCHC 30.9 g/dL (31.0-37.0); MCV 105.2 fL (80.0-100.0); Macrocytosis Moderate; Mean Platelet Volume 8.3; Monocytes # (A) 0.5 k/uL (0-1.0); Monocytes % (A) 6 %; Neutrophils # (A) 5.4 k/uL (1.3-7.7); Neutrophils % (A) 68 %; Platelet Count 185 k/uL (150-450); RDW 14.7 % (11.5-15.5); WBC 7.8 k/uL (3.8-10.6)
[2019-11-08 08:40] LABS: Potassium 4.6 mmol/L (3.5-5.1)
[2019-11-08] MEDS: SYMBICORT 160-4.5 MCG INHALER INHALATION SCH ×2 (08:41→19:45)
[2019-11-08] MEDS: ALBUTEROL NEBULIZED 2.5 MG/3 ML INHALATION SCH ×3 (08:41→19:44)
[2019-11-08 08:45] LABS: Vancomycin,Random 28.9 ug/mL
[2019-11-08] MEDS ORDERED: IV FLUID CONTINUATION 1,000 ML IV ONE (08:59)
[2019-11-08] MEDS ORDERED: MIDAZOLAM 2 MG/2 ML VIAL ONE (08:59)
[2019-11-08] MEDS ORDERED: fentaNYL (PF) 50 MCG/ML 2 ML AMP ONE (08:59)
[2019-11-08] MEDS ORDERED: KETAMINE 10 MG/ML 20 ML VIAL ONE (08:59)
[2019-11-08] MEDS ORDERED: PROPOFOL 10 MG/ML 20 ML VIAL IV ONE (08:59)
--- NOTE | 2019-11-08 09:26 | P.PN ---
Subjective Patient is seen in follow-up for her incisional disease. He is maintained on hemodialysis on Sunday schedule. Tolerated hemodialysis well yesterday. He is scheduled for toe amputation today. Blood culture positive for staph aureus. Right foot wound culture positive for group D enterococcus and gram-negative bacilli. Denies chest pain or shortness of breath. Vital signs are stable. General: The patient appeared well nourished and normally developed. HEENT: Head exam is unremarkable. Neck is without jugular venous distension. LUNGS: Lungs are clear to auscultation and percussion. Breath sounds decreased. HEART: Rate and Rhythm are regular. ABDOMEN: Soft, nontender. EXTREMITITES: Wrapped. Chronic changes noted. Objective - Vital Signs Vital signs: Vital Signs Temp 98.2 F 11/08/19 08:30 Pulse 65 11/08/19 08:30 Resp 16 11/08/19 08:30 BP 123/65 11/08/19 08:30 Pulse Ox 98 11/08/19 08:30 Intake & Output 11/07/19 11/08/19 11/08/19 18:59 06:59 18:59 Intake Total 500 300 Output Total 1999 Balance -1500 300 Intake: Intake, IV Titration 500 Amount Vancomycin 1,750 mg In 500 Sodium Chloride 0.9% 500 ml 500 ml @ 167 mls/hr IVPB ONCE ONE Rx#: [id number] Oral 300 Output: Hemodialysis 2000 Other: # Voids 1 # Bowel Movements 1 - Labs CBC & Chem 7: 11/08/19 07:48 11/08/19 07:48 Labs: Abnormal Lab Results - Last 24 Hours (Table) 11/07/19 11/07/19 11/07/19 Range/Units 11:52 16:58 21:01 RBC (4.30-5.90) m/uL Hgb (13.0-17.5) gm/dL MCV (80.0-100.0) fL MCHC (31.0-37.0) g/dL Sodium (137-145) mmol/L Chloride (98-107) mmol/L BUN (9-20) mg/dL Creatinine (0.66-1.25) mg/dL POC Glucose (mg/dL) 111 H 131 H 282 H (75-99) mg/dL 11/08/19 11/08/19 11/08/19 Range/Units 06:51 07:48 07:48 RBC 3.90 L (4.30-5.90) m/uL Hgb 12.7 L (13.0-17.5) gm/dL MCV 105.2 H (80.0-100.0) fL MCHC 30.9 L (31.0-37.0) g/dL Sodium 134 L (137-145) mmol/L Chloride 96 L (98-107) mmol/L BUN 29 H (9-20) mg/dL Creatinine 4.45 H (0.66-1.25) mg/dL POC Glucose (mg/dL) 74 L (75-99) mg/dL Microbiology - Last 24 Hours (Table) 11/06/19 13:25 Blood Culture Gram Stain - Preliminary Blood Blood Culture - Preliminary Staphylococcus aureus 11/06/19 13:25 Blood Culture - Final Blood 11/06/19 16:20 Gram Stain - Preliminary Foot - Right Wound Culture - Preliminary Gram Neg Bacilli Group D Enterococcus Assessment and Plan Plan: Assessment: 1. End-stage renal disease maintained on hemodialysis on Sunday schedule. 2. Right foot wound with osteomyelitis - cultures positive for gram-negative bacilli and group D enterococcus. Scheduled for toe patient today. 3. Staph aureus bacteremia. 4. Chronic kidney disease mineral bone disease maintained on PhosLo. 5. Insulin-dependent diabetes mellitus. 6. Anemia of chronic kidney disease maintained on Aranesp. Plan: Hemodialysis on Sunday. Antibiotics per infectious disease. Monitor vancomycin levels. Target level 15. Dose to be adjusted for renal function.
[2019-11-08 09:59] LABS: Glucose,Whole Blood 111 mg/dL (75-99)
--- NOTE | 2019-11-08 10:16 | P.OP ---
Date of Procedure: 11/08/19 Description of Procedure: SURGEON: Criselda Arguelles DO PREOPERATIVE DIAGNOSIS: [Chronic osteomyelitis right fifth metatarsal, diabetic plantar wounds, nonhealing, diabetes, end-stage renal disease]. POSTOPERATIVE DIAGNOSIS: [Same]. OPERATION: Right amputation right fifth toe/metatarsal ANESTHESIA: Monitored anesthesia care ESTIMATED BLOOD LOSS: Less than 20 mL SPECIMENS REMOVED: Right fifth toe/metatarsal bone culture COMPLICATIONS: None immediately apparent OPERATIVE FINDINGS: The patient is a 69-year-old male with a past medical history including diabetes and plantar foot ulcerations that are required treatment. He is found to have chronic osteomyelitis in his fifth metatarsal with bony destruction. The wound itself cultured positive as well as a bacteremia. It was decided that given his nonhealing with turbid measures surgical intervention was necessary therefore he was taken to the operative suite for fifth toe ray amputation. Risks and benefits were discussed including significant issues with healing due to his diabetes and neuropathy. He seemingly understands and is willing to proceed as such DESCRIPTION OF PROCEDURE: This patient was brought to the operating room, and given IV sedation. The operative foot was prepped and draped in sterile manner. A preprocedure timeout was performed, all parties were in agreement.An incision was made at the base of the fifth toe deep into skin and fascia onlateralspect until we reached the head of the metatarsal bone. there was significant osteomyelitis therefore there was nonunion of the metatarsal bone itself. Dissection was carried out down to the essentially base of the fifth metatarsal where there was no further evidence of infected bone and is transected here with a bone cutters. The bone was then removed with electrocautery. Base of the wound looked clean, there was good healthy bleeding tissues and the wound was copiously irrigated with saline. Tissue was approximated with 3-0 Vicryl interrupted sutures, the proximal portion of the wound, vertical mattress sutures of 2-0 nylon were placed. Distally the wound was left open to allow for drainage. He likely will need a wound VAC in the future but given his good blood flow at this time, a postsurgical dressing was placed after appropriate hemostasis with electrocautery. He was transported to PACU in stable condition having tolerated his procedure well.
[2019-11-08] MEDS: levOCARNitine (WITH SUGAR) 100 MG/ML BOTTLE PO SCH ×3 (10:23→17:19)
[2019-11-08] MEDS: INSULIN ASPART (NovoLOG) 100 UNIT/ML VIAL SQ SCH ×8 (10:23→21:24)
[2019-11-08] MEDS: CALCIUM ACETATE 667 MG TAB PO SCH ×3 (10:23→17:19)
[2019-11-08] MEDS: HEPARIN SODIUM,PORCINE 5,000 UNIT/ML 1 ML VIAL SQ SCH ×3 (10:24→23:50)
[2019-11-08] MEDS: MAGNEBIND PO SCH ×2 (10:24→17:29)
[2019-11-08] MEDS: NON FORMULARY DRUG (Prorenal + D 1 TAB) PO SCH (10:27)
[2019-11-08] MEDS: METOPROLOL TARTRATE 50 MG TAB PO SCH ×2 (11:00→21:24)
[2019-11-08] MEDS: ASPIRIN 81 MG PO SCH (11:00)
[2019-11-08] MEDS: FENOFIBRATE 160 MG TAB PO SCH (11:00)
[2019-11-08] MEDS: FUROSEMIDE 40 MG TAB PO SCH ×2 (11:00→17:19)
[2019-11-08] MEDS: PANTOPRAZOLE 40 MG TABLET PO SCH ×2 (11:00→17:19)
[2019-11-08] MEDS: PIPERACILLIN-TAZOBACTAM 3.375 GM in SODIUM CHLORIDE 0.9% 100 ML IVPB SCH ×3 (11:01→23:50)
[2019-11-08 11:47] LABS: Glucose,Whole Blood 98 mg/dL (75-99)
[2019-11-08 12:35] VITALS: BMI 28.1
[2019-11-08] MEDS: THIAMINE 100 MG TAB PO SCH (13:42)
[2019-11-08] MEDS: MULTIVITAMINS, THERA 1 EACH TAB PO SCH (13:42)
[2019-11-08] MEDS: FOLIC ACID 1 MG TAB PO SCH (13:43)
--- NOTE | 2019-11-08 16:46 | P.PN ---
Subjective 69-year-old male with history of diabetes and on dialysis on Sunday and Sunday. He presents emergency room today for concern for worsening wound over his right foot at the metatarsal areas of black tissue over the first second and third toe. Patient reports that he is not on any antibiotics currently. He does state that he was sent here for further evaluation and likely IV antibiotics to heal the infection. patient follows up in wound carewas undergoing frequent debridement without any significant improvement are healing of the wound and the there is a concern patient wound is infected and the possible divorce, that is because of which patient was sent in to ER and patient is found to have ostial LAD and the x-ray. Infectious disease was consulted will consult vascular surgery patient was started on broad-spectrum antibiotics won't cultures blood cultures were obtained. 11/07/2019 Patient is seen in follow-up currently sitting up in the chair with no acute overnight issues. Patient is seen and evaluated by cardiovascular surgery and scheduled to undergo Right amputation of the right fifth toe with possible some parts of the lateral aspect of the right foot as well in the morning. Patient currently denies any chest pain, shortness of breath, or palpitations. Patient is afebrile. No reports of nausea or vomiting and patient is tolerating diet. Patient is currently awaiting to receive dialysis today. 11/08/2019 Patient underwent amputation of the right fifth toe and metatarsal. Patient has group B enterococcus, gram-negative bacilli and MRSA in the wound cultures and patient is presently on Zosyn and vancomycin which should cover all these 3 organisms. He is feeling better Constitutional: Denied any fatigue denied any fever. Cardio vascular: denied any chest pain, palpitations Gastrointestinal denied any nausea vomiting Pulmonary: Denied any shortness of breath cough Neurologic denied any new focal deficits All inpatient medications were reviewed and appropriate changes in these medications as dictated in the interval history and assessment and plan. Objective - Vital Signs Vital signs: Vital Signs Temp 97.4 F L 11/08/19 11:15 Pulse 80 11/08/19 12:25 Resp 18 11/08/19 11:15 BP 121/57 11/08/19 11:15 Pulse Ox 100 11/08/19 11:15 Intake & Output 11/07/19 11/08/19 11/08/19 18:59 06:59 18:59 Intake Total 500 300 550 Output Total 1999 15 Balance -1500 300 535 Weight 102.058 kg Intake: IV 550 Intake, IV Titration 500 Amount Vancomycin 1,750 mg In 500 Sodium Chloride 0.9% 500 ml 500 ml @ 167 mls/hr IVPB ONCE ONE Rx#: [id number] Oral 300 Output: Hemodialysis 2000 Estimated Blood Loss 15 Other: Voiding Method Toilet # Voids 1 1 # Bowel Movements 1 - Exam GENERAL: The patient is alert and oriented x3, not in any acute distress. Well developed, well nourished. HEENT: Pupils are round and equally reacting to light. EOMI. No scleral icterus. No conjunctival pallor. Normocephalic, atraumatic. No pharyngeal erythema. No thyromegaly. CARDIOVASCULAR: S1 and S2 present. No murmurs, rubs, or gallops. PULMONARY: Chest is clear to auscultation, no wheezing or crackles. ABDOMEN: Soft, nontender, nondistended, normoactive bowel sounds. No palpable organomegaly. MUSCULOSKELETAL: No joint swelling or deformity. EXTREMITIES: No cyanosis, clubbing, or pedal edema. NEUROLOGICAL: Gross neurological examination did not reveal any focal deficits. SKIN: Patient's right foot is wrapped with an his bandage - Labs CBC & Chem 7: 11/08/19 07:48 11/08/19 07:48 Labs: Abnormal Lab Results - Last 24 Hours (Table) 11/07/19 11/07/19 11/08/19 Range/Units 16:58 21:01 06:51 RBC (4.30-5.90) m/uL Hgb (13.0-17.5) gm/dL MCV (80.0-100.0) fL MCHC (31.0-37.0) g/dL Sodium (137-145) mmol/L Chloride (98-107) mmol/L BUN (9-20) mg/dL Creatinine (0.66-1.25) mg/dL POC Glucose (mg/dL) 131 H 282 H 74 L (75-99) mg/dL 11/08/19 11/08/19 11/08/19 Range/Units 07:48 07:48 09:58 RBC 3.90 L (4.30-5.90) m/uL Hgb 12.7 L (13.0-17.5) gm/dL MCV 105.2 H (80.0-100.0) fL MCHC 30.9 L (31.0-37.0) g/dL Sodium 134 L (137-145) mmol/L Chloride 96 L (98-107) mmol/L BUN 29 H (9-20) mg/dL Creatinine 4.45 H (0.66-1.25) mg/dL POC Glucose (mg/dL) 111 H (75-99) mg/dL Microbiology - Last 24 Hours (Table) 11/06/19 13:25 Blood Culture Gram Stain - Preliminary Blood Blood Culture - Preliminary Presumptive MRSA 11/06/19 13:25 Blood Culture - Final Blood 11/06/19 16:20 Gram Stain - Preliminary Foot - Right Wound Culture - Preliminary Gram Neg Bacilli Group D Enterococcus Assessment and Plan Plan: -infected right foot ulcer with osteomyelitis: is status post amputation of the right fifth toe and metatarsal. Patient had above-mentioned bacteria group B enterococcus, MRSA, gram-negative bacilli patient is on Zosyn and vancomycin. -Type 2 diabetes mellitus well controlled on present regimen which will be continued -End-stage renal disease secondary to diabetic nephropathy patient will resumeon his Sunday schedule of hemodialysis , nephrology was consulted. 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 DVT prophylaxis with subcutaneous heparin
[2019-11-08 17:22] LABS: Glucose,Whole Blood 154 mg/dL (75-99)
[2019-11-08] MEDS: ACETAMINOPHEN TAB 325 MG TAB PO PRN (19:20)
[2019-11-08 21:12] LABS: Glucose,Whole Blood 185 mg/dL (75-99)
[2019-11-08] MEDS: INSULIN DETEMIR (LEVEMIR) 100 UNIT/ML SYR SQ SCH (21:24)
--- NOTE | 2019-11-08 23:55 | PN ---
PROGRESS NOTE DATE OF SERVICE: 11/08/2019 REASON FOR FOLLOWUP: Right fifth toe osteomyelitis. INTERVAL HISTORY: Patient is currently afebrile. Patient is breathing comfortably. The patient was taken to the OR this morning, status post amputation of his right 5th toe with metatarsal head wound. The patient denies having any chest pain. No shortness of breath or cough. No abdominal pain. He tolerated the procedure. Denies any pain to the right foot at this point. PHYSICAL EXAMINATION: Blood pressure 115/66, pulse of 63, temperature 97.5. He is 96% on room air. General description is an elderly male up in the chair in no distress. Respiratory system: Unlabored breathing, clear to auscultation anteriorly. Heart S1, S2. Regular rate and rhythm. ABDOMEN: Soft. No tenderness. LABS: Blood culture with presumptive MRSA. Local wound culture with MRSA and Enterococcus faecalis Enterobacter. DIAGNOSTIC IMPRESSION AND PLAN: Patient with right 5th toe osteomyelitis, status post amputation with MRSA bacteremia. Blood cultures will be repeated to document clearance of his bacteremia. Continue Zosyn and vancomycin. He will likely need a PICC line for outpatient antibiotics. Continue supportive care. MMODL / IJN: [id number] /
[2019-11-09] MEDS: ALPRAZolam 0.25 MG TAB PO PRN (00:17)
[2019-11-09 06:57] LABS: Glucose,Whole Blood 57 mg/dL (75-99)
[2019-11-09 07:09] LABS: Glucose,Whole Blood 58 mg/dL (75-99)
[2019-11-09 07:27] LABS: Glucose,Whole Blood 82 mg/dL (75-99)
[2019-11-09] MEDS: ALBUTEROL NEBULIZED 2.5 MG/3 ML INHALATION SCH ×3 (07:32→19:49)
[2019-11-09] MEDS: SYMBICORT 160-4.5 MCG INHALER INHALATION SCH ×2 (07:33→19:49)
[2019-11-09 07:35] LABS: Glucose,Whole Blood 92 mg/dL (75-99)
[2019-11-09] MEDS: PANTOPRAZOLE 40 MG TABLET PO SCH ×2 (07:36→17:22)
[2019-11-09] MEDS: ASPIRIN 81 MG PO SCH (07:36)
[2019-11-09] MEDS: FENOFIBRATE 160 MG TAB PO SCH (07:37)
[2019-11-09] MEDS: ACETAMINOPHEN TAB 325 MG TAB PO PRN (07:37)
[2019-11-09] MEDS: METOPROLOL TARTRATE 50 MG TAB PO SCH ×2 (07:37→21:00)
[2019-11-09] MEDS: FUROSEMIDE 40 MG TAB PO SCH ×2 (07:37→17:23)
[2019-11-09] MEDS: CALCIUM ACETATE 667 MG TAB PO SCH ×3 (07:37→17:23)
[2019-11-09] MEDS: levOCARNitine (WITH SUGAR) 100 MG/ML BOTTLE PO SCH ×3 (07:38→17:24)
[2019-11-09] MEDS: PIPERACILLIN-TAZOBACTAM 3.375 GM in SODIUM CHLORIDE 0.9% 100 ML IVPB SCH ×3 (07:39→23:42)
[2019-11-09] MEDS: HEPARIN SODIUM,PORCINE 5,000 UNIT/ML 1 ML VIAL SQ SCH ×3 (07:40→23:42)
[2019-11-09] MEDS: INSULIN ASPART (NovoLOG) 100 UNIT/ML VIAL SQ SCH ×8 (07:40→21:00)
[2019-11-09] MEDS: MAGNEBIND PO SCH ×2 (07:40→17:23)
[2019-11-09] MEDS: NON FORMULARY DRUG (Prorenal + D 1 TAB) PO SCH (07:47)
--- NOTE | 2019-11-09 08:41 | P.PN ---
Subjective Patient is seen in follow-up for end-stage renal disease. He is maintained on hemodialysis on Sunday schedule. Underwent right fifth toe amputation on November 07. Blood culture positive for MRSA. Right foot wound culture positive for MRSA and Enterobacter. Denies chest pain or shortness of breath. Vital signs are stable. General: The patient appeared well nourished and normally developed. HEENT: Head exam is unremarkable. Neck is without jugular venous distension. LUNGS: Lungs are clear to auscultation and percussion. Breath sounds decreased. HEART: Rate and Rhythm are regular. ABDOMEN: Soft, nontender. EXTREMITITES: Wrapped. Chronic changes noted. Objective - Vital Signs Vital signs: Vital Signs Temp 98.2 F 11/09/19 05:00 Pulse 80 11/09/19 07:46 Resp 16 11/09/19 05:00 BP 110/56 11/09/19 05:00 Pulse Ox 97 11/09/19 05:00 Intake & Output 11/08/19 11/09/19 11/09/19 18:59 06:59 18:59 Intake Total 550 Output Total 15 Balance 535 Weight 102.058 kg Intake: IV 550 Output: Estimated Blood Loss 15 Other: Voiding Method Toilet Toilet # Voids 1 1 # Bowel Movements 1 - Labs CBC & Chem 7: 11/08/19 07:48 11/08/19 07:48 Labs: Abnormal Lab Results - Last 24 Hours (Table) 11/08/19 11/08/19 11/08/19 Range/Units 07:48 09:58 17:07 Sodium 134 L (137-145) mmol/L Chloride 96 L (98-107) mmol/L BUN 29 H (9-20) mg/dL Creatinine 4.45 H (0.66-1.25) mg/dL POC Glucose (mg/dL) 111 H 154 H (75-99) mg/dL C-Reactive Protein (<10.0) mg/L 11/08/19 11/09/19 11/09/19 Range/Units 21:04 06:50 07:07 Sodium (137-145) mmol/L Chloride (98-107) mmol/L BUN (9-20) mg/dL Creatinine (0.66-1.25) mg/dL POC Glucose (mg/dL) 185 H 57 L 58 L (75-99) mg/dL C-Reactive Protein (<10.0) mg/L 11/09/19 Range/Units 07:09 Sodium (137-145) mmol/L Chloride (98-107) mmol/L BUN (9-20) mg/dL Creatinine (0.66-1.25) mg/dL POC Glucose (mg/dL) (75-99) mg/dL C-Reactive Protein 25.7 H (<10.0) mg/L Microbiology - Last 24 Hours (Table) 11/08/19 09:40 Gram Stain - Preliminary Toe - Right Fifth Tissue Culture - Preliminary 11/06/19 16:20 Gram Stain - Preliminary Foot - Right Wound Culture - Preliminary Enterobacter hormaechei Enterococcus faecalis Presumptive MRSA 11/08/19 09:40 Anaerobic Culture - Preliminary Toe - Right Fifth 11/06/19 13:25 Blood Culture Gram Stain - Preliminary Blood Blood Culture - Preliminary Presumptive MRSA 11/06/19 13:25 Blood Culture - Final Blood Assessment and Plan Plan: Assessment: 1. End-stage renal disease maintained on hemodialysis on Sunday schedule. 2. Right foot wound with osteomyelitis - cultures positive for MRSA and Enterobacter. Status post right fifth toe amputation on November 07. 3. MRSA bacteremia. 4. Chronic kidney disease mineral bone disease maintained on PhosLo. 5. Insulin-dependent diabetes mellitus. 6. Anemia of chronic kidney disease maintained on Aranesp. Plan: Hemodialysis on Sunday. Antibiotics per infectious disease. Monitor vancomycin levels. Target level 15. Dose to be adjusted for renal function.
[2019-11-09 11:44] LABS: Glucose,Whole Blood 90 mg/dL (75-99)
[2019-11-09] MEDS: THIAMINE 100 MG TAB PO SCH (13:32)
[2019-11-09] MEDS: MULTIVITAMINS, THERA 1 EACH TAB PO SCH (13:32)
[2019-11-09] MEDS: FOLIC ACID 1 MG TAB PO SCH (13:32)
[2019-11-09] MEDS ORDERED: ETANERCEPT 50 MG SQ SCH (15:04)
--- NOTE | 2019-11-09 16:24 | P.PN ---
Subjective 69-year-old male with history of diabetes and on dialysis on Sunday and Sunday. He presents emergency room today for concern for worsening wound over his right foot at the metatarsal areas of black tissue over the first second and third toe. Patient reports that he is not on any antibiotics currently. He does state that he was sent here for further evaluation and likely IV antibiotics to heal the infection. patient follows up in wound carewas undergoing frequent debridement without any significant improvement are healing of the wound and the there is a concern patient wound is infected and the possible divorce, that is because of which patient was sent in to ER and patient is found to have ostial LAD and the x-ray. Infectious disease was consulted will consult vascular surgery patient was started on broad-spectrum antibiotics won't cultures blood cultures were obtained. 11/07/2019 Patient is seen in follow-up currently sitting up in the chair with no acute overnight issues. Patient is seen and evaluated by cardiovascular surgery and scheduled to undergo Right amputation of the right fifth toe with possible some parts of the lateral aspect of the right foot as well in the morning. Patient currently denies any chest pain, shortness of breath, or palpitations. Patient is afebrile. No reports of nausea or vomiting and patient is tolerating diet. Patient is currently awaiting to receive dialysis today. 11/08/2019 Patient underwent amputation of the right fifth toe and metatarsal. Patient has group B enterococcus, gram-negative bacilli and MRSA in the wound cultures and patient is presently on Zosyn and vancomycin which should cover all these 3 organisms. He is feeling better. 11/09/2019 Patient does have a enterococcus, MRSA, Enterobacter in the wound cultures and patient is on Zosyn and vancomycin infectious disease following the patient patient may need a PICC line probably will be discharged tomorrow. Constitutional: Denied any fatigue denied any fever. Cardio vascular: denied any chest pain, palpitations Gastrointestinal denied any nausea vomiting Pulmonary: Denied any shortness of breath cough Neurologic denied any new focal deficits All inpatient medications were reviewed and appropriate changes in these medications as dictated in the interval history and assessment and plan. Objective - Vital Signs Vital signs: Vital Signs Temp 97.4 F L 11/09/19 11:14 Pulse 80 11/09/19 13:28 Resp 18 11/09/19 11:14 BP 90/46 11/09/19 11:14 Pulse Ox 100 11/09/19 11:14 Intake & Output 11/08/19 11/09/19 11/09/19 18:59 06:59 18:59 Intake Total 550 Output Total 15 Balance 535 Weight 102.058 kg Intake: IV 550 Output: Estimated Blood Loss 15 Other: Voiding Method Toilet Toilet Toilet # Voids 1 1 # Bowel Movements 1 1 - Exam GENERAL: The patient is alert and oriented x3, not in any acute distress. Well developed, well nourished. HEENT: Pupils are round and equally reacting to light. EOMI. No scleral icterus. No conjunctival pallor. Normocephalic, atraumatic. No pharyngeal erythema. No thyromegaly. CARDIOVASCULAR: S1 and S2 present. No murmurs, rubs, or gallops. PULMONARY: Chest is clear to auscultation, no wheezing or crackles. ABDOMEN: Soft, nontender, nondistended, normoactive bowel sounds. No palpable organomegaly. MUSCULOSKELETAL: No joint swelling or deformity. EXTREMITIES: No cyanosis, clubbing, or pedal edema. NEUROLOGICAL: Gross neurological examination did not reveal any focal deficits. SKIN: Patient's right foot is wrapped with an his bandage - Labs CBC & Chem 7: 11/08/19 07:48 11/08/19 07:48 Labs: Abnormal Lab Results - Last 24 Hours (Table) 11/08/19 11/08/19 11/09/19 Range/Units 17:07 21:04 06:50 ESR (0-15) mm/hr POC Glucose (mg/dL) 154 H 185 H 57 L (75-99) mg/dL C-Reactive Protein (<10.0) mg/L 11/09/19 11/09/19 11/09/19 Range/Units 07:07 07:09 07:09 ESR 80 H (0-15) mm/hr POC Glucose (mg/dL) 58 L (75-99) mg/dL C-Reactive Protein 25.7 H (<10.0) mg/L Microbiology - Last 24 Hours (Table) 11/08/19 09:40 Gram Stain - Preliminary Toe - Right Fifth Tissue Culture - Preliminary 11/06/19 13:25 Blood Culture Gram Stain - Final Blood Blood Culture - Final Methicillin resist S. aureus 11/06/19 16:20 Gram Stain - Preliminary Foot - Right Wound Culture - Preliminary Enterobacter hormaechei Enterococcus faecalis Presumptive MRSA 11/08/19 09:40 Anaerobic Culture - Preliminary Toe - Right Fifth Assessment and Plan Plan: -infected right foot ulcer with osteomyelitis: Patient is status post amputation of the right fifth toe and metatarsal. Patient had above-mentioned bacteria group B enterococcus, MRSA, Enterobacter patient is on Zosyn and vancomycin. -Type 2 diabetes mellitus well controlled on present regimen which will be continued -End-stage renal disease secondary to diabetic nephropathy patient will resumeon his Sunday schedule of hemodialysis , nephrology was consulted. 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 DVT prophylaxis with subcutaneous heparin
[2019-11-09 17:03] LABS: Glucose,Whole Blood 132 mg/dL (75-99)
[2019-11-09 20:36] LABS: Glucose,Whole Blood 187 mg/dL (75-99)
[2019-11-09] MEDS: INSULIN DETEMIR (LEVEMIR) 100 UNIT/ML SYR SQ SCH (21:01)
--- NOTE | 2019-11-10 00:56 | PN ---
PROGRESS NOTE DATE OF SERVICE: 11/09/2019 REASON FOR FOLLOWUP: Right foot osteomyelitis. INTERVAL HISTORY: The patient is currently afebrile, has been breathing comfortably. The patient denies having any chest pain or shortness of breath or cough. No abdominal pain or diarrhea. PHYSICAL EXAMINATION: Blood pressure is 90/46 with a pulse of 80, temperature 97.4. He is 100% on room air. General description is an elderly male up in the chair in no distress. RESPIRATORY SYSTEM: Unlabored breathing, clear to auscultation anteriorly. HEART: S1, S2. Regular rate and rhythm. ABDOMEN: Soft, no tenderness. Right foot is currently dressed up. No obvious drainage on the dressing. LABS: Wound culture now showing an Enterobacter, Enterococcus and MRSA. DIAGNOSTIC IMPRESSION AND PLAN: Patient with right 5th toe osteomyelitis acute on chronic. Culture positive for MRSA, Enterococcus and Enterobacter, covered with Zosyn and vancomycin. Planning on vancomycin and Fortaz, which can be done through the dialysis so that we can avoid a PICC line. This was discussed further with the casey saw operator and Nephrology. Continue supportive care. MMODL / IJN: [id number] /
[2019-11-10 07:18] LABS: Glucose,Whole Blood 76 mg/dL (75-99)
[2019-11-10] MEDS: SYMBICORT 160-4.5 MCG INHALER INHALATION SCH ×2 (08:21→21:17)
[2019-11-10] MEDS: ALBUTEROL NEBULIZED 2.5 MG/3 ML INHALATION SCH ×3 (08:21→21:17)
[2019-11-10] MEDS: CALCIUM ACETATE 667 MG TAB PO SCH ×3 (08:51→17:55)
[2019-11-10] MEDS: HEPARIN SODIUM,PORCINE 5,000 UNIT/ML 1 ML VIAL SQ SCH ×2 (08:52→17:51)
[2019-11-10] MEDS: PANTOPRAZOLE 40 MG TABLET PO SCH ×2 (08:52→17:54)
[2019-11-10] MEDS: levOCARNitine (WITH SUGAR) 100 MG/ML BOTTLE PO SCH ×3 (08:52→17:55)
[2019-11-10] MEDS: INSULIN ASPART (NovoLOG) 100 UNIT/ML VIAL SQ SCH ×7 (09:03→21:40)
[2019-11-10] MEDS: NON FORMULARY DRUG (Prorenal + D 1 TAB) PO SCH (09:04)
[2019-11-10] MEDS: MAGNEBIND PO SCH ×2 (09:04→17:50)
[2019-11-10 09:17] LABS: Glucose,Whole Blood 57 mg/dL (75-99)
[2019-11-10 09:36] LABS: Glucose,Whole Blood 71 mg/dL (75-99)
[2019-11-10 09:44] LABS: Glucose,Whole Blood 92 mg/dL (75-99)
[2019-11-10] MEDS: PIPERACILLIN-TAZOBACTAM 3.375 GM in SODIUM CHLORIDE 0.9% 100 ML IVPB SCH ×2 (09:45→21:40)
--- NOTE | 2019-11-10 09:53 | P.PN ---
Subjective Patient is seen in follow-up for end-stage renal disease. He is maintained on hemodialysis on Sunday schedule. Underwent right fifth toe amputation on November 07. Blood culture positive for MRSA. Right foot wound culture positive for MRSA and Enterobacter. Denies chest pain or shortness of breath. blood pressure stable. No active complaints. Vital signs are stable. General: The patient appeared well nourished and normally developed. HEENT: Head exam is unremarkable. Neck is without jugular venous distension. LUNGS: Lungs are clear to auscultation and percussion. Breath sounds decreased. HEART: Rate and Rhythm are regular. ABDOMEN: Soft, nontender. EXTREMITITES: Wrapped. Chronic changes noted. Objective - Vital Signs Vital signs: Vital Signs Temp 96.2 F L 11/10/19 05:00 Pulse 66 11/10/19 05:00 Resp 18 11/10/19 05:00 BP 103/53 11/10/19 05:00 Pulse Ox 100 11/10/19 05:00 Intake & Output 11/09/19 11/10/19 11/10/19 18:59 06:59 18:59 Intake Total 665 Balance 665 Intake: Intake, IV Titration 125 Amount Piperacillin-Tazobactam 3 125 .375 gm In Sodium Chloride 0.9% 100 ml @ 25 mls/hr IVPB Q8HR [facility] Rx# :[id number] Oral 540 Other: Voiding Method Toilet Toilet Toilet # Voids 1 # Bowel Movements 1 1 - Labs CBC & Chem 7: 11/08/19 07:48 11/08/19 07:48 Labs: Abnormal Lab Results - Last 24 Hours (Table) 11/09/19 11/09/19 11/09/19 Range/Units 07:09 16:54 20:27 ESR 80 H (0-15) mm/hr POC Glucose (mg/dL) 132 H 187 H (75-99) mg/dL 11/10/19 11/10/19 Range/Units 08:56 09:16 ESR (0-15) mm/hr POC Glucose (mg/dL) 57 L 71 L (75-99) mg/dL Microbiology - Last 24 Hours (Table) 11/09/19 07:09 Blood Culture - Preliminary Blood No Growth after 24 hours 11/06/19 16:20 Gram Stain - Final Foot - Right Wound Culture - Final Enterobacter hormaechei Enterococcus faecalis Methicillin resist S. aureus 11/08/19 09:40 Gram Stain - Preliminary Toe - Right Fifth Tissue Culture - Preliminary 11/06/19 13:25 Blood Culture Gram Stain - Final Blood Blood Culture - Final Methicillin resist S. aureus Assessment and Plan Plan: Assessment: 1. End-stage renal disease maintained on hemodialysis on Sunday F riday schedule. 2. Right foot wound with osteomyelitis - cultures positive for MRSA and Enterobacter. Status post right fifth toe amputation on November 07. 3. MRSA bacteremia. 4. Chronic kidney disease mineral bone disease maintained on PhosLo. 5. Insulin-dependent diabetes mellitus. 6. Anemia of chronic kidney disease maintained on Aranesp. Plan: Hemodialysis today. Antibiotics per infectious disease. Monitor vancomycin levels. Target level 15. Dose to be adjusted for renal function.
[2019-11-10 11:28] LABS: Glucose,Whole Blood 110 mg/dL (75-99)
--- NOTE | 2019-11-10 13:01 | P.PN ---
Subjective Progress Note Date: 11/10/19 Patient seen and examined sitting up in the recliner. He has status postop day 2 for right fifth metatarsal amputation. Patient denies any acute changes through the night. He states that he has had a blood blister on his right foot great toe which has cracked it is bleeding. He denies any fevers or chills. His pain is well controlled. He has a dressing to the right lower extremity with an Lg wrap over. Objective - Vital Signs Vital signs: Vital Signs Temp 97.4 F L 11/10/19 11:10 Pulse 75 11/10/19 11:36 Resp 18 11/10/19 11:10 BP 99/52 11/10/19 11:10 Pulse Ox 100 11/10/19 11:10 Intake & Output 11/09/19 11/10/19 11/10/19 18:59 06:59 18:59 Intake Total 665 Balance 665 Intake: Intake, IV Titration 125 Amount Piperacillin-Tazobactam 3 125 .375 gm In Sodium Chloride 0.9% 100 ml @ 25 mls/hr IVPB Q8HR [facility] Rx# :[id number] Oral 540 Other: Voiding Method Toilet Toilet Toilet # Voids 1 # Bowel Movements 1 1 - Exam The patient is alert and oriented. Right lower extremity dressing removed. Fifth toe amputaiton site and debridement with bloody drainage, 3 sutures are intact. Incision site is 9 cm x 3 cm x 2 cm deep. TMA site packed with wet to dry dressing with Kerlix wrap and Lg wrap. Right dorsal side of great toe with blood blisters that is cracked with bloody drainage. - Labs CBC & Chem 7: 11/08/19 07:48 11/08/19 07:48 Labs: Abnormal Lab Results - Last 24 Hours (Table) 11/09/19 11/09/19 11/09/19 Range/Units 07:09 16:54 20:27 ESR 80 H (0-15) mm/hr POC Glucose (mg/dL) 132 H 187 H (75-99) mg/dL 11/10/19 11/10/19 11/10/19 Range/Units 08:56 09:16 11:08 ESR (0-15) mm/hr POC Glucose (mg/dL) 57 L 71 L 110 H (75-99) mg/dL Microbiology - Last 24 Hours (Table) 11/08/19 09:40 Gram Stain - Preliminary Toe - Right Fifth Tissue Culture - Preliminary Presumptive MRSA Coagulase Negative Staph 11/09/19 07:09 Blood Culture - Preliminary Blood No Growth after 24 hours 11/06/19 16:20 Gram Stain - Final Foot - Right Wound Culture - Final Enterobacter hormaechei Enterococcus faecalis Methicillin resist S. aureus 11/06/19 13:25 Blood Culture Gram Stain - Final Blood Blood Culture - Final Methicillin resist S. aureus Assessment and Plan Assessment: 1. Postop day 2 right foot fifth metatarsal amputation 2. Osteomyelitis of the right foot fifth metatarsal 2. Nonhealing right diabetic foot ulcer 3. Chronic peripheral arterial disease 4. Diabetes mellitus Plan: Dressing was changed at bedside. Patient is to be discharged today. Vascular surgery recommended acute care rehab facility with a wound VAC in placed. Order given to case management. Continue with IV antibiotics as recommended per infectious disease. Continue with patient's normal regimen for dialysis. Follow-up with Dr. Arguelles in 7-10 days. The above dictated assessment and findings were discussed with Dr. Arguelles. The impression and plan of care have been directed as dictated.
--- NOTE | 2019-11-10 14:42 | PN ---
PROGRESS NOTE DATE OF SERVICE: 11/10/2019 REASON FOR FOLLOWUP: Right foot osteomyelitis. INTERVAL HISTORY: Patient is currently afebrile, has been breathing comfortably, the patient denies having any chest pain. No shortness of breath. No cough. No abdominal pain, no diarrhea. PHYSICAL EXAMINATION: Blood pressure 99/52 with a pulse of 94, temperature 97.4, he is 100% on 2 L nasal cannula. General description is an elderly male, up in the chair in no distress. RESPIRATORY SYSTEM: Unlabored breathing, clear to auscultation anteriorly heart S1, S2. Regular rate and rhythm. Right foot 2nd system drainage with. LABS: Blood culture with MRSA. Repeat blood culture has been negative. Wound culture with Enterobacter, Enterococcus and MRSA. DIAGNOSTIC IMPRESSION AND PLAN: Patient right foot osteomyelitis, MR admitted with pain pathogen and will also show up in the blood. Repeat blood culture has been -94 vancomycin, Pharmacy to dose and Fortaz with each dialysis for 6 weeks. Prescription provided to the hospice case manager working on discharge along with weekly monitor CBC, BMP and sedimentation rate and close outpatient followup. MMODL / IJN: [id number] /
[2019-11-10] MEDS: FUROSEMIDE 40 MG TAB PO SCH ×2 (14:45→16:25)
[2019-11-10] MEDS: METOPROLOL TARTRATE 50 MG TAB PO SCH ×2 (14:45→21:39)
[2019-11-10] MEDS: THIAMINE 100 MG TAB PO SCH (14:49)
[2019-11-10] MEDS: FENOFIBRATE 160 MG TAB PO SCH (14:49)
[2019-11-10] MEDS: FOLIC ACID 1 MG TAB PO SCH (14:50)
[2019-11-10] MEDS: MULTIVITAMINS, THERA 1 EACH TAB PO SCH (14:50)
[2019-11-10] MEDS: ASPIRIN 81 MG PO SCH (14:50)
--- NOTE | 2019-11-10 15:34 | P.PN ---
Subjective Progress Note Date: 11/10/19 Principal diagnosis: 69-year-old male with history of diabetes and on dialysis on Sunday and Sunday. He presents emergency room today for concern for worsening wound over his right foot at the metatarsal areas of black tissue over the first second and third toe. Patient reports that he is not on any antibiotics currently. He does state that he was sent here for further evaluation and likely IV antibiotics to heal the infection. patient follows up in wound rae as undergoing frequent debridement without any significant improvement are healing of the wound and the there is a concern patient wound is infected and the possible divorce, that is because of which patient was sent in to ER and patient is found to have ostial LAD and the x-ray. Infectious disease was consulted will consult vascular surgery patient was started on broad-spectrum antibiotics won't cultures blood cultures were obtained. 11/07/2019 Patient is seen in follow-up currently sitting up in the chair with no acute overnight issues. Patient is seen and evaluated by cardiovascular surgery and scheduled to undergo Right amputation of the right fifth toe with possible some parts of the lateral aspect of the right foot as well in the morning. Patient currently denies any chest pain, shortness of breath, or palpitations. Patient is afebrile. No reports of nausea or vomiting and patient is tolerating diet. Patient is currently awaiting to receive dialysis today. 11/08/2019 Patient underwent amputation of the right fifth toe and metatarsal. Patient has group B enterococcus, gram-negative bacilli and MRSA in the wound cultures and patient is presently on Zosyn and vancomycin which should cover all these 3 organisms. He is feeling better. 11/09/2019 Patient does have a enterococcus, MRSA, Enterobacter in the wound cultures and patient is on Zosyn and vancomycin infectious disease following the patient patient may need a PICC line probably will be discharged tomorrow. Constitutional: Denied any fatigue denied any fever. Cardio vascular: denied any chest pain, palpitations Gastrointestinal denied any nausea vomiting Pulmonary: Denied any shortness of breath cough Neurologic denied any new focal deficits All inpatient medications were reviewed and appropriate changes in these medications as dictated in the interval history and assessment and plan. 11/10/2019 Patient is seen and evaluated and follow-up currently awaiting to receive hemodialysis. Nephrology following. Patient is maintained on Sunday/Sunday/Sunday dialysis will continue at this time. Patient has received authorization to have IV antibiotics on dialysis days. Vascular surgery also following and recommending wound VAC prior to discharge. Patient is adamant about having home care although family is unable to care for him and maintain a wound VAC and patient will be going to [facility] on the [address] for continued wound care along with physical therapy and antibiotic treatments. Inf ectious disease also following and patient is maintained on IV antibiotics and will continue at this time. Case management and social work following and referrals have been made to ECF. Currently awaiting authorization through insurance for ECF placement. No reports of chest pain, shortness of breath, or palpitations. Patient is afebrile. No reports of nausea or vomiting and patient is tolerating diet. Will continue to monitor blood sugars closely. Objective - Vital Signs Vital signs: Vital Signs Temp 97.4 F L 11/10/19 11:10 Pulse 75 11/10/19 11:36 Resp 18 11/10/19 11:10 BP 99/52 11/10/19 11:10 Pulse Ox 100 11/10/19 11:10 Intake & Output 11/09/19 11/10/19 11/10/19 18:59 06:59 18:59 Intake Total 665 Balance 665 Intake: Intake, IV Titration 125 Amount Piperacillin-Tazobactam 3 125 .375 gm In Sodium Chloride 0.9% 100 ml @ 25 mls/hr IVPB Q8HR [facility] Rx# :[id number] Oral 540 Other: Voiding Method Toilet Toilet Toilet # Voids 1 5 # Bowel Movements 1 1 4 - Exam GENERAL: The patient is alert and oriented x3, not in any acute distress. Well developed, well nourished. HEENT: Pupils are round and equally reacting to light. EOMI. No scleral icterus. No conjunctival pallor. Normocephalic, atraumatic. No pharyngeal erythema. No thyromegaly. CARDIOVASCULAR: S1 and S2 present. No murmurs, rubs, or gallops. PULMONARY: Chest is clear to auscultation, no wheezing or crackles. ABDOMEN: Soft, nontender, nondistended, normoactive bowel sounds. No palpable organomegaly. MUSCULOSKELETAL: No joint swelling or deformity. EXTREMITIES: No cyanosis, clubbing, or pedal edema. NEUROLOGICAL: Gross neurological examination did not reveal any focal deficits. SKIN: Surgical dressings recently reapplied and right foot is wrapped with an Lg wrap that is dry and intact. - Labs CBC & Chem 7: 11/08/19 07:48 11/08/19 07:48 Labs: Abnormal Lab Results - Last 24 Hours (Table) 11/09/19 11/09/19 11/10/19 Range/Units 16:54 20:27 08:56 POC Glucose (mg/dL) 132 H 187 H 57 L (75-99) mg/dL 11/10/19 11/10/19 Range/Units 09:16 11:08 POC Glucose (mg/dL) 71 L 110 H (75-99) mg/dL Microbiology - Last 24 Hours (Table) 11/08/19 09:40 Anaerobic Culture - Preliminary Toe - Right Fifth Group D Enterococcus 11/08/19 09:40 Gram Stain - Preliminary Toe - Right Fifth Tissue Culture - Preliminary Presumptive MRSA Coagulase Negative Staph 11/09/19 07:09 Blood Culture - Preliminary Blood No Growth after 24 hours 11/06/19 16:20 Gram Stain - Final Foot - Right Wound Culture - Final Enterobacter hormaechei Enterococcus faecalis Methicillin resist S. aureus Assessment and Plan Assessment: -infected right foot ulcer with osteomyelitis: Patient is status post amputation of the right fifth toe and metatarsal. Infectious disease and vascular surgery following closely. Wound cultures showing group D enterococcus with presumptive MRSA, and coagulase-negative staph. Repeat blood cultures have been negative. -Type 2 diabetes mellitus uncontrolled with elevated blood sugars, continue current regimen and we'll monitor blood sugars and medications closely -End-stage renal disease secondary to diabetic nephropathy patient will resume on his Sunday schedule of hemodialysis , nephrology Following. Patient scheduled to undergo hemodialysis today. 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 -DVT prophylaxis with subcutaneous heparin Plan: Continue current medications, management, and symptomatic treatment. Patient is maintained on IV antibiotics in the form of Zosyn and will continue at this time. Infectious disease along with nephrology and vascular surgery following. Patient is to receive a wound VAC of the right foot. Awaiting authorization from insurance for [facility] on [facility] as patient will need continued wound care, antibiotic therapy, and PT/OT therapy upon discharge. Will repeat a.m. labs. Further recommendations to follow. Anticipate discharge in 24-48 hours.
[2019-11-10 17:15] LABS: Glucose,Whole Blood 123 mg/dL (75-99)
[2019-11-10] MEDS ORDERED: GELATIN SPONGE,ABSORB (LARGE) 1 EACH SPONGE ONE (20:00)
[2019-11-10 20:09] LABS: Glucose,Whole Blood 152 mg/dL (75-99)
[2019-11-10] MEDS: ALPRAZolam 0.25 MG TAB PO PRN (21:39)
[2019-11-10] MEDS: INSULIN DETEMIR (LEVEMIR) 100 UNIT/ML SYR SQ SCH (21:44)
[2019-11-10] MEDS: ACETAMINOPHEN TAB 325 MG TAB PO PRN (23:30)
[2019-11-11] MEDS: INSULIN ASPART (NovoLOG) 100 UNIT/ML VIAL SQ SCH ×5 (00:19→13:15)
[2019-11-11] MEDS: HEPARIN SODIUM,PORCINE 5,000 UNIT/ML 1 ML VIAL SQ SCH ×2 (00:38→09:05)
[2019-11-11 07:10] LABS: Glucose,Whole Blood 81 mg/dL (75-99)
[2019-11-11] MEDS: SYMBICORT 160-4.5 MCG INHALER INHALATION SCH (07:16)
[2019-11-11] MEDS: ALBUTEROL NEBULIZED 2.5 MG/3 ML INHALATION SCH ×2 (07:16→13:40)
[2019-11-11] MEDS ORDERED: SILVER NITRATE APPLICATOR 1 EACH STICK..EA. TOPICAL STA (08:05)
[2019-11-11 08:46] LABS: Basophils # (A) 0.1 k/uL (0-0.2); Basophils % (A) 1 %; Eosinophils # (A) 0.3 k/uL (0-0.7); Eosinophils % (A) 4 %; HCT 33.3 % (39.0-53.0); HGB 10.1 gm/dL (13.0-17.5); Hypochromasia Slight; Lymphocytes # (A) 1.3 k/uL (1.0-4.8); Lymphocytes % (A) 18 %; MCHC 30.4 g/dL (31.0-37.0); MCV 105.3 fL (80.0-100.0); Macrocytosis Moderate; Mean Platelet Volume 8.5; Monocytes # (A) 0.5 k/uL (0-1.0); Monocytes % (A) 7 %; Neutrophils # (A) 4.9 k/uL (1.3-7.7); Neutrophils % (A) 67 %; Platelet Count 180 k/uL (150-450); RBC 3.16 m/uL (4.30-5.90); RDW 15.1 % (11.5-15.5); WBC 7.3 k/uL (3.8-10.6)
[2019-11-11] MEDS: MAGNEBIND PO SCH (08:59)
[2019-11-11] MEDS: NON FORMULARY DRUG (Prorenal + D 1 TAB) PO SCH (08:59)
[2019-11-11] MEDS: PANTOPRAZOLE 40 MG TABLET PO SCH (09:05)
[2019-11-11] MEDS: FENOFIBRATE 160 MG TAB PO SCH (09:05)
[2019-11-11] MEDS: ASPIRIN 81 MG PO SCH (09:05)
[2019-11-11] MEDS: METOPROLOL TARTRATE 50 MG TAB PO SCH (09:05)
[2019-11-11] MEDS: FUROSEMIDE 40 MG TAB PO SCH (09:05)
[2019-11-11] MEDS: levOCARNitine (WITH SUGAR) 100 MG/ML BOTTLE PO SCH ×2 (09:05→13:16)
[2019-11-11] MEDS: CALCIUM ACETATE 667 MG TAB PO SCH ×3 (09:05→13:16)
[2019-11-11 09:06] LABS: Calcium 9.3 mg/dL (8.4-10.2); Potassium 5.6 mmol/L (3.5-5.1)
[2019-11-11] MEDS: PIPERACILLIN-TAZOBACTAM 3.375 GM in SODIUM CHLORIDE 0.9% 100 ML IVPB SCH (09:06)
--- NOTE | 2019-11-11 09:14 | P.PN ---
<Irene Ibanez - Last Filed: 11/11/19 09:07> Subjective Progress Note Date: 11/11/19 Patient was seen and examined sitting up in the recliner. Patient's dressing to the right foot was saturated with blood. The patient denies remembering any injury. He denies any pain to the lower extremity. States there were no acute changes through the night, denies any fevers or chills. Patient is to be discharged to [facility] for acute care rehab and IV antibiotics. Objective - Vital Signs Vital signs: Vital Signs Temp 97.8 F 11/11/19 05:00 Pulse 72 11/11/19 07:27 Resp 18 11/11/19 05:00 BP 109/65 11/11/19 05:00 Pulse Ox 93 L 11/11/19 07:17 Intake & Output 11/10/19 11/11/19 11/11/19 18:59 06:59 18:59 Intake Total 1000 Balance 1000 Intake: Oral 1000 Other: Voiding Method Toilet Toilet # Voids 5 2 # Bowel Movements 4 2 - Exam The patient is alert and oriented. Right foot dressing saturated with blood. Fifth toe amputaiton site and debridement with active bleeding, 3 sutures are intact. Hemostatis was achieved with pressure. Incision site is 9 cm x 3 cm x 2 cm deep. TMA site packed with wet to dry dressing with Kerlix wrap and Lg wrap. Right dorsal side of great toe with blood blisters that is cracked without drainage presently. Right great toe nail injured and partially pulled off. - Labs CBC & Chem 7: 11/11/19 08:15 11/11/19 08:15 Labs: Abnormal Lab Results - Last 24 Hours (Table) 11/10/19 11/10/19 11/10/19 Range/Units 08:56 09:16 11:08 RBC (4.30-5.90) m/uL Hgb (13.0-17.5) gm/dL Hct (39.0-53.0) % MCV (80.0-100.0) fL MCHC (31.0-37.0) g/dL Potassium (3.5-5.1) mmol/L BUN (9-20) mg/dL Creatinine (0.66-1.25) mg/dL Glucose (74-99) mg/dL POC Glucose (mg/dL) 57 L 71 L 110 H (75-99) mg/dL 11/10/19 11/10/19 11/11/19 Range/Units 17:13 20:07 08:15 RBC 3.16 L (4.30-5.90) m/uL Hgb 10.1 L (13.0-17.5) gm/dL Hct 33.3 L (39.0-53.0) % MCV 105.3 H (80.0-100.0) fL MCHC 30.4 L (31.0-37.0) g/dL Potassium (3.5-5.1) mmol/L BUN (9-20) mg/dL Creatinine (0.66-1.25) mg/dL Glucose (74-99) mg/dL POC Glucose (mg/dL) 123 H 152 H (75-99) mg/dL 11/11/19 Range/Units 08:15 RBC (4.30-5.90) m/uL Hgb (13.0-17.5) gm/dL Hct (39.0-53.0) % MCV (80.0-100.0) fL MCHC (31.0-37.0) g/dL Potassium 5.6 H (3.5-5.1) mmol/L BUN 32 H (9-20) mg/dL Creatinine 5.78 H (0.66-1.25) mg/dL Glucose 106 H (74-99) mg/dL POC Glucose (mg/dL) (75-99) mg/dL Microbiology - Last 24 Hours (Table) 11/08/19 09:40 Gram Stain - Preliminary Toe - Right Fifth Tissue Culture - Preliminary Presumptive MRSA Coagulase Negative Staph 11/08/19 09:40 Anaerobic Culture - Preliminary Toe - Right Fifth Group D Enterococcus 11/09/19 07:09 Blood Culture - Preliminary Blood No Growth after 24 hours Assessment and Plan Assessment: 1. Postop day 2 right foot fifth metatarsal amputation 2. Osteomyelitis of the right foot fifth metatarsal 2. Nonhealing right diabetic foot ulcer 3. Chronic peripheral arterial disease 4. Diabetes mellitus Plan: Patient is cleared by a vascular surgery to be discharged today. Wet to dry dressing change was completed to right foot amputation site. Adaptic was put on the right great toe. Kerlix and Lg wrap was applied. Patient should have a wound VAC applied to the right foot amputation site. Patient is to follow-up with wound care clinic. In April IV antibiotics as recommended per infectious disease. The above dictated assessment and findings were discussed with Dr. Arguelles. The impression and plan of care have been directed as dictated. <Criselda Arguelles - Last Filed: 11/12/19 08:09> Objective - Vital Signs Vital signs: Vital Signs Temp 97.7 F 11/11/19 11:30 Pulse 64 11/11/19 11:30 Resp 20 11/11/19 11:30 BP 129/60 11/11/19 11:30 Pulse Ox 98 11/11/19 11:30 Intake & Output 11/11/19 11/12/19 11/12/19 18:59 06:59 18:59 Other: Voiding Method Toilet # Voids 2 - Exam miniamal active oozing from drainage site. right great toe avulsion with majority of area of previous bleeding. blood blister at top of toe. No active bleeding at that time - Labs CBC & Chem 7: 11/11/19 08:15 11/11/19 08:15 Labs: Abnormal Lab Results - Last 24 Hours (Table) 11/11/19 11/11/19 11/11/19 Range/Units 08:15 08:15 11:01 RBC 3.16 L (4.30-5.90) m/uL Hgb 10.1 L (13.0-17.5) gm/dL Hct 33.3 L (39.0-53.0) % MCV 105.3 H (80.0-100.0) fL MCHC 30.4 L (31.0-37.0) g/dL Potassium 5.6 H (3.5-5.1) mmol/L BUN 32 H (9-20) mg/dL Creatinine 5.78 H (0.66-1.25) mg/dL Glucose 106 H (74-99) mg/dL POC Glucose (mg/dL) 120 H (75-99) mg/dL 11/11/19 Range/Units 16:52 RBC (4.30-5.90) m/uL Hgb (13.0-17.5) gm/dL Hct (39.0-53.0) % MCV (80.0-100.0) fL MCHC (31.0-37.0) g/dL Potassium (3.5-5.1) mmol/L BUN (9-20) mg/dL Creatinine (0.66-1.25) mg/dL Glucose (74-99) mg/dL POC Glucose (mg/dL) 142 H (75-99) mg/dL Microbiology - Last 24 Hours (Table) 11/08/19 09:40 Anaerobic Culture - Preliminary Toe - Right Fifth Enterococcus faecium VRE 11/08/19 09:40 Gram Stain - Final Toe - Right Fifth Tissue Culture - Final Methicillin resist S. aureus Coagulase Negative Staph 11/09/19 07:09 Blood Culture - Preliminary Blood No Growth after 48 hours
--- NOTE | 2019-11-11 10:43 | P.PN ---
Subjective Patient is seen in follow-up for end-stage renal disease. He is maintained on hemodialysis on Sunday schedule. Underwent right fifth toe amputation on November 07. Blood culture positive for MRSA. Right foot wound culture positive for MRSA and Enterobacter. Denies chest pain or shortness of breath. blood pressure stable. No active complaints. Completed only half of the dialysis treatment yesterday. Vital signs are stable. General: The patient appeared well nourished and normally developed. HEENT: Head exam is unremarkable. Neck is without jugular venous distension. LUNGS: Lungs are clear to auscultation and percussion. Breath sounds decreased. HEART: Rate and Rhythm are regular. ABDOMEN: Soft, nontender. EXTREMITITES: Wrapped. Chronic changes noted. Objective - Vital Signs Vital signs: Vital Signs Temp 97.8 F 11/11/19 05:00 Pulse 72 11/11/19 07:27 Resp 18 11/11/19 05:00 BP 109/65 11/11/19 05:00 Pulse Ox 93 L 11/11/19 07:17 Intake & Output 11/10/19 11/11/19 11/11/19 18:59 06:59 18:59 Intake Total 1000 Balance 1000 Intake: Oral 1000 Other: Voiding Method Toilet Toilet Toilet # Voids 5 2 # Bowel Movements 4 2 - Labs CBC & Chem 7: 11/11/19 08:15 11/11/19 08:15 Labs: Abnormal Lab Results - Last 24 Hours (Table) 11/10/19 11/10/19 11/10/19 Range/Units 11:08 17:13 20:07 RBC (4.30-5.90) m/uL Hgb (13.0-17.5) gm/dL Hct (39.0-53.0) % MCV (80.0-100.0) fL MCHC (31.0-37.0) g/dL Potassium (3.5-5.1) mmol/L BUN (9-20) mg/dL Creatinine (0.66-1.25) mg/dL Glucose (74-99) mg/dL POC Glucose (mg/dL) 110 H 123 H 152 H (75-99) mg/dL 11/11/19 11/11/19 Range/Units 08:15 08:15 RBC 3.16 L (4.30-5.90) m/uL Hgb 10.1 L (13.0-17.5) gm/dL Hct 33.3 L (39.0-53.0) % MCV 105.3 H (80.0-100.0) fL MCHC 30.4 L (31.0-37.0) g/dL Potassium 5.6 H (3.5-5.1) mmol/L BUN 32 H (9-20) mg/dL Creatinine 5.78 H (0.66-1.25) mg/dL Glucose 106 H (74-99) mg/dL POC Glucose (mg/dL) (75-99) mg/dL Microbiology - Last 24 Hours (Table) 11/09/19 07:09 Blood Culture - Preliminary Blood No Growth after 48 hours 11/08/19 09:40 Gram Stain - Preliminary Toe - Right Fifth Tissue Culture - Preliminary Presumptive MRSA Coagulase Negative Staph 11/08/19 09:40 Anaerobic Culture - Preliminary Toe - Right Fifth Group D Enterococcus Assessment and Plan Plan: Assessment: 1. End-stage renal disease maintained on hemodialysis on Sunday schedule. 2. Right foot wound with osteomyelitis - cultures positive for MRSA and Enterobacter. Status post right fifth toe amputation on November 07. 3. MRSA bacteremia. 4. Chronic kidney disease mineral bone disease maintained on PhosLo. 5. Insulin-dependent diabetes mellitus. 6. Anemia of chronic kidney disease maintained on Aranesp. 7. Mild hyperkalemia secondary to chronic kidney disease. Plan: Hemodialysis today as he only got half treatment yesterday. Another treatment tomorrow per his outpatient schedule. Antibiotics per infectious disease. Monitor vancomycin levels. Target level 15. Dose to be adjusted for renal function.
[2019-11-11 11:03] LABS: Glucose,Whole Blood 120 mg/dL (75-99)
--- NOTE | 2019-11-11 13:13 | P.DS ---
Providers Date of admission: 11/06/19 14:46 Expected date of discharge: 11/11/19 Attending physician: Germain Dowd Consults: 11/06/19 14:46 Consult Physician Stat Consulting Provider: Janette Greenberg Consult Reason/Comments: dialysis, MWF Do you want consulting provider notified?: Yes 11/06/19 14:49 Consult Physician Stat Consulting Provider: Whitney Hodges Consult Reason/Comments: diabetic wound, osteomyelitis Do you want consulting provider notified?: Yes 11/06/19 16:06 Consult Physician Routine Consulting Provider: Criselda Arguelles Consult Reason/Comments: Infected foot ulcer Do you want consulting provider notified?: Yes Primary care physician: [facility] Course: Final diagnosis -infected right foot ulcer with osteomyelitis: Patient is status post amputation of the right fifth toe and metatarsal -Covid 19 ruled out, testing was negative -Type 2 diabetes mellitus uncontrolled with elevated blood sugars -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 -DVT prophylaxis Discharge disposition Patient is being discharged in a stable condition with guarded prognosis to [facility] for continued PT/OT therapy, wound care, continued hemodialysis, and antibiotic infusion during hemodialysis. Patient will follow- up with Dr. Stevens in the outpatient setting upon discharge. Patient is to continue with hemodialysis as scheduled. Total time taken is greater than 35 minutes. History of present illness next This is a 69-year-old male who was recently admitted with worsening wound over his right foot at the metatarsal area with black eschar over the first second and third toe and was being closely monitored. . Patient was following in the outpatient setting at the wound care center with no signs of improvement. Pat ient was seen and evaluated by infectious disease and was initiated on IV antibiotic therapy. Patient's wound cultures finalized showing multiple organisms including group D enterococcus and MRSA. Patient will continue with Zosyn and vancomycin during hemodialysis Sunday/Sunday/Sunday. Patient continued to worsen and ultimately underwent right fifth toe amputation with Dr. Arguelles. Patient was scheduled to go home with home care although family is unable to care for him and his wound VAC needs. Patient will be going to [facility] for continued PT/OT therapy, hemodialysis with antibiotic infusions, and wound care. Patient did have Covid 19 testing which was negative. Currently no reports of chest pain, shortness of breath, or palpitations. Patient is afebrile. No reports of nausea or vomiting and patient is tolerating diet. Patient will be going to [facility] on the [place] today. On exam vital signs are stable. Temp is 97.7F, pulse is 64, respirations are 20, blood pressure is 129/60, oxygen saturation is 98% on room air. Cardio S1, S2 are muffled. Respiratory system shows diminished breath sounds at the bases with no wheezing or rhonchi noted. Abdomen is soft and obese, and nontender. Nervous system shows diffuse weakness. Please refer to medication reconciliation sheet for a list of medications. Patient Condition at Discharge: Good Plan - Discharge Summary Discharge Rx Participant: No New Discharge Prescriptions: New Acetaminophen Tab [Tylenol] 650 mg PO Q6HR PRN tab PRN Reason: Mild Pain Or Fever > 100.5 Continue NIFEdipine [NIFEdipine ER] 60 mg PO DAILY Etanercept [Enbrel] 50 mg SQ LUU gemfibroziL [Lopid] 600 mg PO BID Aspirin EC [Ecotrin Low Dose] 81 mg PO DAILY Budesonide-Formot 160-4.5 Mcg [Symbicort 160-4.5 Mcg Inhaler] 2 puff INHALATION RT-BID Omeprazole 40 mg PO DAILY Metoprolol Tartrate [Lopressor] 50 mg PO BID Calcium Acetate [PhosLo] 2,001 mg PO TID-W/MEALS Magnebind 250/300mg 3 tab PO BID-W/MEALS Prorenal + D 1 tab PO DAILY Albuterol Nebulized [Ventolin Nebulized] 2.5 mg INHALATION RT-TID levOCARNitine [Levocarnitine] 330 mg PO TID-W/MEALS Acetaminophen Tab [Tylenol] 650 mg PO Q6HR PRN tab PRN Reason: Mild Pain Or Fever > 100.5 ALPRAZolam [Xanax] 0.25 mg PO TID PRN 3 Days #9 tab PRN Reason: anxiety Calcium Acetate [PhosLo] 667 mg PO DAILY PRN PRN Reason: with snack Furosemide [Lasix] 40 mg PO BID Vit C/E/Zn/Coppr/Lutein/Zeaxan [Preservision Areds 2 Softgel] 1 cap PO DAILY Insulin Glargine,Hum.rec.anlog [Lantus Solostar] See Protocol SQ HS PRN PRN Reason: HIGH BLOOD SUGAR Insulin Lispro [humaLOG Kwikpen] See Protocol SQ AC-TID PRN PRN Reason: SUGAR ABOVE 150 Darbepoetin Dinh [Aranesp] 40 mcg SQ Q7D syringe Folic Acid 1 mg PO DAILY@1200 30 Days #30 tab Thiamine [Vitamin B-1] 100 mg PO DAILY@1200 30 Days #30 tab Multivitamins, Thera [Multivitamin (formulary)] 1 tab PO DAILY@1200 Changed Insulin Glargine,Hum.rec.anlog [Lantus Solostar] 30 unit SQ HS #0 Discharge Medication List Etanercept [Enbrel] 50 mg SQ LUU 06/12/14 [History] NIFEdipine [NIFEdipine ER] 60 mg PO DAILY 06/12/14 [History] Aspirin EC [Ecotrin Low Dose] 81 mg PO DAILY 07/31/18 [History] gemfibroziL [Lopid] 600 mg PO BID 07/31/18 [History] Budesonide-Formot 160-4.5 Mcg [Symbicort 160-4.5 Mcg Inhaler] 2 puff INHALATION RT-BID 02/26/19 [History] Calcium Acetate [PhosLo] 2,001 mg PO TID-W/MEALS 02/26/19 [History] Magnebind 250/300mg 3 tab PO BID-W/MEALS 02/26/19 [History] Metoprolol Tartrate [Lopressor] 50 mg PO BID 02/26/19 [History] Omeprazole 40 mg PO DAILY 02/26/19 [History] Prorenal + D 1 tab PO DAILY 02/26/19 [History] Albuterol Nebulized [Ventolin Nebulized] 2.5 mg INHALATION RT-TID 03/17/19 [History] levOCARNitine [Levocarnitine] 330 mg PO TID-W/MEALS 06/27/19 [History] ALPRAZolam [Xanax] 0.25 mg PO TID PRN 3 Days #9 tab 07/09/19 [Rx] Acetaminophen Tab [Tylenol] 650 mg PO Q6HR PRN tab 07/09/19 [Rx] Calcium Acetate [PhosLo] 667 mg PO DAILY PRN 08/20/19 [History] Furosemide [Lasix] 40 mg PO BID 08/20/19 [History] Insulin Glargine,Hum.rec.anlog [Lantus Solostar] See Protocol SQ HS PRN 08/20/19 [History] Insulin Lispro [humaLOG Kwikpen] See Protocol SQ AC-TID PRN 08/20/19 [History] Vit C/E/Zn/Coppr/Lutein/Zeaxan [Preservision Areds 2 Softgel] 1 cap PO DAILY 08/20/19 [History] Darbepoetin Dinh [Aranesp] 40 mcg SQ Q7D syringe 08/28/19 [Rx] Folic Acid 1 mg PO DAILY@1200 30 Days #30 tab 08/28/19 [Rx] Thiamine [Vitamin B-1] 100 mg PO DAILY@1200 30 Days #30 tab 08/28/19 [Rx] Multivitamins, Thera [Multivitamin (formulary)] 1 tab PO DAILY@1200 11/06/19 [History] Acetaminophen Tab [Tylenol] 650 mg PO Q6HR PRN tab 11/10/19 [Rx] Insulin Glargine,Hum.rec.anlog [Lantus Solostar] 30 unit SQ HS #0 11/10/19 [Rx] Follow up Appointment(s)/Referral(s): Nell Rosen MD [Primary Care Provider] - 11/12/19 1:15 pm [facility], [NON-STAFF] - [facility], [REFERRING] - (IV antibiotics will be delivered to [facility] tomorrow for your chair time on Sunday. They will come to your home and sign consent for delivery on 11/11/2019 before 4:30PM.) Activity/Diet/Wound Care/Special Instructions: Patient is going to [facility] on [facility] [place] Activity as tolerated Continue to monitor blood sugars before meals at bedtime and treat accordingly with sliding scale Follow-up with primary care provider upon discharge Continue with home care Continue with antibiotic infusion at dialysis Patient is to receive a wound VAC of the right foot with suction at 125 mmHg to the right TMA site upon admission to [facility] Continue with wound care Continue current diet Continue with dialysis Sunday/Sunday/Sunday Follow-up at the wound center Follow-up with vascular surgery Discharge Disposition: HOME WITH HOME HEALTH SERVICES
[2019-11-11] MEDS: THIAMINE 100 MG TAB PO SCH (13:16)
[2019-11-11] MEDS: FOLIC ACID 1 MG TAB PO SCH (13:16)
[2019-11-11] MEDS: MULTIVITAMINS, THERA 1 EACH TAB PO SCH (13:16)
--- NOTE | 2019-11-11 16:36 | PN ---
PROGRESS NOTE DATE OF SERVICE: 11/11/2019 REASON FOR FOLLOWUP: Right heel osteomyelitis. INTERVAL HISTORY: The patient is currently afebrile, has been breathing comfortably. Patient denies having any chest pain or shortness of breath, no nausea, no vomiting, no abdominal pain or pain to the right foot. PHYSICAL EXAMINATION: Blood pressure 129/60 with a pulse of 64, temperature is 97.7, he is 98% on room air. General description is an elderly male, up in the chair in no distress. RESPIRATORY SYSTEM: Unlabored breathing, clear to auscultation anteriorly. HEART: S1, S2. Regular rate and rhythm. ABDOMEN: Soft, no tenderness. Right foot is dressed up, minimal blood-stained drainage on the dressing. LABS: Hemoglobin is 10.8, white count 7.2, BUN of 32, creatinine 3.78. DIAGNOSTIC IMPRESSION AND PLAN: Patient with right foot osteomyelitis. Cultures now showing VRE in addition to the previous culture with MRSA and Enterobacter. Vancomycin will be discontinued. Daptomycin will be added to continue along with Zosyn, outpatient antibiotic will be daptomycin and Fortaz. Casework will be loaded. Continue supportive care. MMODL / IJN: [id number] /
[2019-11-11 16:53] LABS: Glucose,Whole Blood 142 mg/dL (75-99)
[2019-11-12] MEDS ORDERED: DARBEPOETIN ALFA 40 MCG/0.4 ML SYRINGE SQ SCH (09:00)
[2019-11-12 09:08] VITALS: BP 122/59; PULSE 68; RESP 16; TEMP 97.2
--- NOTE | 2019-11-12 12:50 | CDI ---
Documentation Clarification Form From: Franci Cheung Phone: If you have a question about this query, please contact Cristy Smith [employer] Rotation Associate at [phone] between 8am and 5pm. Admit Date: 11/06/2019 02:46:00 PM Patient Name: Grzegorz Palma Visit Number: [id number] Discharge Date: 11/11/2019 05:48:00 PM ATTENTION: The Clinical Documentation Specialists (CDI) and [facility] Coding Staff appreciate your assistance in clarifying documentation. Please respond to the clarification below the line at the bottom and electronically sign. The CDI & [facility] Coding staff will review the response and follow-up if needed. Please note: Queries are made part of the Legal Health Record. If you have any questions, please contact the author of this message via ITS. Dr. Adan Arnold The patient presented with the diabetic foot ulcer with acute and chronic osteomyelitis. Amputation of right fifth metatarsal. Path report documenting speciman gangrenous. Please clarify if patient had grangrene. Code assignement cannot be based on path report. Condition must be documenet by physician. Do you agree with path report findings? History/Risk Factors: DM PAD with foot ulcer and osteomyelitis Lab findings: Stept B, MRSA and gram negative infection Radiology findings: destructive changes involving the 5th metatarsal osteomyelitis Vital Signs: 97.8 F 79 bpm 20 156/81 100% RA Treatment: amputation In your professional opinion, can you please clarify if you agree with the path report documenting gangrene? Agree with path report gangrene Do not agree with path report and documentation of gangrene Other, please specify Unable to determine Agree with path report gangrene MTDD
== END 2019-11-11 17:48 | DRG 255 ==
LOC: EC 12:30 → 5NMEDONC 14:46
PROVIDERS: ADMIT Hospitalist; ATTEND Hospitalist
PROC: 5A1D70Z Performance of Urinary Filtration, Intermittent, Less than 6 Hours Per Day (ICD-10-PCS; 2019-11-07)
PROC: 0Y6X0Z0 Detachment at Right 5th Toe, Complete, Open Approach (ICD-10-PCS; principal; 2019-11-08 09:15)
DX: E11.52 Type 2 diabetes mellitus with diabetic peripheral angiopathy with gangrene (principal); N18.6 End stage renal disease; I96 Gangrene, not elsewhere classified; I13.2 Hypertensive heart and chronic kidney disease with heart failure and with stage 5 chronic kidney disease, or end stage renal disease; L03.115 Cellulitis of right lower limb; M86.671 Other chronic osteomyelitis, right ankle and foot; M86.10 Other acute osteomyelitis, unspecified site; R78.81 Bacteremia; E11.69 Type 2 diabetes mellitus with other specified complication; E11.42 Type 2 diabetes mellitus with diabetic polyneuropathy; E11.51 Type 2 diabetes mellitus with diabetic peripheral angiopathy without gangrene; E11.621 Type 2 diabetes mellitus with foot ulcer; E11.65 Type 2 diabetes mellitus with hyperglycemia; E87.5 Hyperkalemia; G40.909 Epilepsy, unspecified, not intractable, without status epilepticus; H54.8 Legal blindness, as defined in USA; I25.10 Atherosclerotic heart disease of native coronary artery without angina pectoris; I48.0 Paroxysmal atrial fibrillation; I50.9 Heart failure, unspecified; J45.909 Unspecified asthma, uncomplicated; K21.9 Gastro-esophageal reflux disease without esophagitis; B95.1 Streptococcus, group B, as the cause of diseases classified elsewhere; B95.62 Methicillin resistant Staphylococcus aureus infection as the cause of diseases classified elsewhere; B96.89 Other specified bacterial agents as the cause of diseases classified elsewhere; D63.1 Anemia in chronic kidney disease; E11.22 Type 2 diabetes mellitus with diabetic chronic kidney disease; E11.319 Type 2 diabetes mellitus with unspecified diabetic retinopathy without macular edema; E11.628 Type 2 diabetes mellitus with other skin complications; L97.519 Non-pressure chronic ulcer of other part of right foot with unspecified severity; M06.9 Rheumatoid arthritis, unspecified; Z79.4 Long term (current) use of insulin; Z79.51 Long term (current) use of inhaled steroids; Z79.82 Long term (current) use of aspirin; Z79.899 Other long term (current) drug therapy; Z83.3 Family history of diabetes mellitus; Z86.14 Personal history of Methicillin resistant Staphylococcus aureus infection; G89.29 Other chronic pain; Z20.828 Contact with and (suspected) exposure to other viral communicable diseases; M54.9 Dorsalgia, unspecified; R26.9 Unspecified abnormalities of gait and mobility; Z86.79 Personal history of other diseases of the circulatory system; Z87.891 Personal history of nicotine dependence; Z88.2 Allergy status to sulfonamides; Z99.2 Dependence on renal dialysis; E66.9 Obesity, unspecified; Z68.28 Body mass index [BMI] 28.0-28.9, adult; Z86.010 Personal history of colon polyps; E83.9 Disorder of mineral metabolism, unspecified; E83.39 Other disorders of phosphorus metabolism; Z87.01 Personal history of pneumonia (recurrent); Z98.42 Cataract extraction status, left eye; Z98.41 Cataract extraction status, right eye; Z80.9 Family history of malignant neoplasm, unspecified
CPT/HCPCS: 36415; 80048; 80053; 80202; 83605; 85025; 85652; 86140; 87040; 87070; 87075; 87077; 87186; 87205; 87635; 88305; 88311; 90935; 94640; 94760; 96361; 96365; 96367; 99285

== ENCOUNTER 2020-01-09 14:03 | Emergency (ER) | payer MEDICARE ==
[2020-01-09 14:12] VITALS: RESP 18
--- NOTE | 2020-01-09 14:26 | ED ---
General Adult HPI - General Chief complaint: Recheck/Abnormal Lab/Rx Stated complaint: Bleeding Time Seen by Provider: 01/09/20 14:17 Source: patient, EMS, RN notes reviewed Mode of arrival: EMS Limitations: no limitations - History of Present Illness Initial comments: This a 69-year-old male presents emergency Department chief complaint of bleeding from his fistula. Patient states that he went to dialysis and states that they went to remove his tape that he forgot removed from Sunday and states it started bleeding. Patient had a clamp placed and states that he was sent here patient states that he has had no recurrent bleeding has no pain has no other complaints. No chest pain or shortness breath. - Related Data Home Medications Medication Instructions Recorded Confirmed Etanercept [Enbrel] 50 mg SQ LUU 06/12/14 11/06/19 NIFEdipine [NIFEdipine ER] 60 mg PO DAILY 06/12/14 11/06/19 Aspirin EC [Ecotrin Low Dose] 81 mg PO DAILY 07/31/18 11/06/19 gemfibroziL [Lopid] 600 mg PO BID 07/31/18 11/06/19 Budesonide-Formot 160-4.5 Mcg 2 puff INHALATION RT-BID 02/26/19 11/06/19 [Symbicort 160-4.5 Mcg Inhaler] Calcium Acetate [PhosLo] 2,001 mg PO TID-W/MEALS 02/26/19 11/06/19 Magnebind 250/300mg 3 tab PO BID-W/MEALS 02/26/19 11/06/19 Metoprolol Tartrate [Lopressor] 50 mg PO BID 02/26/19 11/06/19 Omeprazole 40 mg PO DAILY 02/26/19 11/06/19 Prorenal + D 1 tab PO DAILY 02/26/19 11/06/19 Albuterol Nebulized [Ventolin 2.5 mg INHALATION RT-TID 03/17/19 11/06/19 Nebulized] levOCARNitine [Levocarnitine] 330 mg PO TID-W/MEALS 06/27/19 11/06/19 Calcium Acetate [PhosLo] 667 mg PO DAILY PRN 08/20/19 11/06/19 Furosemide [Lasix] 40 mg PO BID 08/20/19 11/06/19 Insulin Lispro [humaLOG Kwikpen] See Protocol SQ AC-TID PRN 08/20/19 11/06/19 Vit C/E/Zn/Coppr/Lutein/Zeaxan 1 cap PO DAILY 08/20/19 11/06/19 [Preservision Areds 2 Softgel] Multivitamins, Thera [Multivitamin 1 tab PO DAILY@1200 11/06/19 11/06/19 (formulary)] Previous Rx's Medication Instructions Recorded Acetaminophen Tab [Tylenol] 650 mg PO Q6HR PRN tab 07/09/19 Darbepoetin Dinh [Aranesp] 40 mcg SQ Q7D syringe 08/28/19 Folic Acid 1 mg PO DAILY@1200 30 Days #30 tab 08/28/19 Thiamine [Vitamin B-1] 100 mg PO DAILY@1200 30 Days #30 08/28/19 tab Acetaminophen Tab [Tylenol] 650 mg PO Q6HR PRN tab 11/10/19 ALPRAZolam [Xanax] 0.25 mg PO TID PRN 3 Days #9 tab 11/11/19 DAPTOmycin [Cubicin] 600 mg IVPB Q48H 14 Days #9 vial 11/11/19 HYDROcodone/APAP 5-325MG [[place] 1 each PO Q4HR PRN #10 tab 11/11/19 5-325] INSULIN ASPART (NovoLOG) [NovoLOG 0 unit SQ ACHS vial 11/11/19 (formulary)] Linezolid 600 mg PO BID 28 Days #18 tablet 11/11/19 cefTAZidime [Fortaz] 2 gm IVPB DAILY 42 Days #18 vial 11/11/19 Allergies Allergy/AdvReac Type Severity Reaction Status Date / Time sulfamethoxazole AdvReac Unknown Nausea & Verified 01/09/20 14:12 [From Bactrim] Vomiting trimethoprim [From Bactrim] AdvReac Unknown Nausea & Verified 01/09/20 14:12 Vomiting Review of Systems ROS Statement: Those systems with pertinent positive or pertinent negative responses have been documented in the HPI. ROS Other: All systems not noted in ROS Statement are negative. Past Medical History Past Medical History: Atrial Fibrillation, Asthma, Heart Failure, Diabetes Mellitus, Dialysis, Eye Disorder, GERD/Reflux, Hypertension, Osteoarthritis (OA), Pneumonia, Renal Disease, Respiratory Disorder, Rheumatoid Arthritis (RA), Seizure Disorder Additional Past Medical History / Comment(s): ESRD with hemodialysis, mineral bone disease, chronic anemia, IDDM type II, diabetic retinopathy-"legally blind", chronic neuropathy in toes/bilateral feet and left leg, bilateral lower leg edema, cellulitis bilateral lower legs, bilateral leg/foot wounds/sees Dr. 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 History of Any Multi-Drug Resistant Organisms: MRSA, VRE Date of last positivie culture/infection: 11/08/19 MDRO Source:: TOE VRE MRSA Past Surgical History: Hernia Repair, Orthopedic Surgery Additional Past Surgical History / Comment(s): Bilateral cataract surgery, insertion dialysis catheter left arm then had a procedure done to dialysis catheter at [facility]-cannot recall exactly what was done, PICC line insertion/removed, bilateral inguinal hernina repairs, colonoscopy/polypectomy, R shoulder rotator cuff repair, debridements bilateral feet. Past Anesthesia/Blood Transfusion Reactions: No Reported Reaction Additional Past Anesthesia/Blood Transfusion Reaction / Comment(s): Pt received blood in past without reaction. Past Psychological History: Anxiety, Depression Smoking Status: Former smoker Past Alcohol Use History: None Reported Past Drug Use History: None Reported - Past Family History Mother Family Medical History: Diabetes Mellitus Father Family Medical History: Cancer Additional Family Medical History / Comment(s): Metastatic cancer. Pt cannot recall primary. General Exam Limitations: no limitations General appearance: alert, in no apparent distress Head exam: Present: atraumatic, normocephalic, normal inspection Eye exam: Present: normal appearance, PERRL, EOMI. Absent: scleral icterus, conjunctival injection, periorbital swelling Respiratory exam: Present: normal lung sounds bilaterally. Absent: respiratory distress, wheezes, rales, rhonchi, stridor Cardiovascular Exam: Present: regular rate, normal rhythm, normal heart sounds. Absent: systolic murmur, diastolic murmur, rubs, gallop, clicks Extremities exam: Present: other (Fistula on left arm there is a pressure clamp applied this is removed, gauze was removed and there is no active bleeding positive thrill noted) Course Vital Signs 01/09/20 14:10 Temperature 97.4 F L Pulse Rate 67 Respiratory 18 Rate Blood Pressure 132/65 O2 Sat by Pulse 98 Oximetry Medical Decision Making - Medical Decision Making 69-year-old male presented from bleeding from fistula. There is no recurrent bleeding after bandage was removed. Patient will be discharged in stable condition return parameters discussed. Disposition Clinical Impression: Hemorrhage of arteriovenous fistula Disposition: HOME SELF-CARE Condition: Stable Additional Instructions: Please return to the Emergency Department if symptoms worsen or any other concerns. Is patient prescribed a controlled substance at d/c from ED?: No Referrals: Nell Rosen MD [Primary Care Provider] - 1-2 days Time of Disposition: 14:26
[2020-01-09 15:04] VITALS: BP 130/68; PULSE 64; TEMP 97.8
== END 2020-01-09 15:03 | disposition home or self-care (01) ==
LOC: EC 14:03
DX: T82.838A Hemorrhage due to vascular prosthetic devices, implants and grafts, initial encounter (principal); F41.9 Anxiety disorder, unspecified; I13.2 Hypertensive heart and chronic kidney disease with heart failure and with stage 5 chronic kidney disease, or end stage renal disease; N18.6 End stage renal disease; F32.9 Major depressive disorder, single episode, unspecified; I48.91 Unspecified atrial fibrillation; J45.909 Unspecified asthma, uncomplicated; I50.9 Heart failure, unspecified; M19.90 Unspecified osteoarthritis, unspecified site; K21.9 Gastro-esophageal reflux disease without esophagitis; G40.909 Epilepsy, unspecified, not intractable, without status epilepticus; M06.9 Rheumatoid arthritis, unspecified; H54.8 Legal blindness, as defined in USA; Z79.51 Long term (current) use of inhaled steroids; Z79.82 Long term (current) use of aspirin; Z79.4 Long term (current) use of insulin; Z79.899 Other long term (current) drug therapy; Z88.2 Allergy status to sulfonamides; Z99.2 Dependence on renal dialysis; Z87.891 Personal history of nicotine dependence; Z86.14 Personal history of Methicillin resistant Staphylococcus aureus infection; Z98.42 Cataract extraction status, left eye; Z98.41 Cataract extraction status, right eye
CPT/HCPCS: 99283

== ENCOUNTER 2020-01-23 13:13 | Emergency (ER) | payer MEDICARE ==
[2020-01-23 13:22] VITALS: BP 141/77; PULSE 103; RESP 26; TEMP 102.7
[2020-01-23] MEDS ORDERED: ACETAMINOPHEN TAB 500 MG TAB PO STA (13:55)
[2020-01-23] MEDS ORDERED: IBUPROFEN 600 MG TAB PO STA (14:11)
--- NOTE | 2020-01-23 14:14 | ED ---
General Adult HPI - General Chief complaint: Fever Stated complaint: SOB Time Seen by Provider: 01/23/20 13:20 Source: patient, family, RN notes reviewed, old records reviewed Mode of arrival: wheelchair Limitations: no limitations - History of Present Illness Initial comments: This is a 69-year-old male who has a past medical history significant for di alysis. Patient comes in today because he went to dialysis and he had a fever and they sent him to the emergency department. I went in the room to evaluate the patient he states he has no complaints per patient denies any headache patient denies numbness or weakness. Patient denies lightheadedness or dizziness. Patient denies any cough patient denies any chest pain palpitations difficulty breathing shortness of breath. Patient denies any abdominal pain patient denies nausea, diarrhea. Patient denies any skin lesions or rashes or areas of erythema. Patient denies any extremity injuries. Patient told me multiple times does not want to be treated and he wants to be sent home. Patient is alert and oriented 3 - Related Data Home Medications Medication Instructions Recorded Confirmed Etanercept [Enbrel] 50 mg SQ LUU 06/12/14 11/06/19 NIFEdipine [NIFEdipine ER] 60 mg PO DAILY 06/12/14 11/06/19 Aspirin EC [Ecotrin Low Dose] 81 mg PO DAILY 07/31/18 11/06/19 gemfibroziL [Lopid] 600 mg PO BID 07/31/18 11/06/19 Budesonide-Formot 160-4.5 Mcg 2 puff INHALATION RT-BID 02/26/19 11/06/19 [Symbicort 160-4.5 Mcg Inhaler] Calcium Acetate [PhosLo] 2,001 mg PO TID-W/MEALS 02/26/19 11/06/19 Magnebind 250/300mg 3 tab PO BID-W/MEALS 02/26/19 11/06/19 Metoprolol Tartrate [Lopressor] 50 mg PO BID 02/26/19 11/06/19 Omeprazole 40 mg PO DAILY 02/26/19 11/06/19 Prorenal + D 1 tab PO DAILY 02/26/19 11/06/19 Albuterol Nebulized [Ventolin 2.5 mg INHALATION RT-TID 03/17/19 11/06/19 Nebulized] levOCARNitine [Levocarnitine] 330 mg PO TID-W/MEALS 06/27/19 11/06/19 Calcium Acetate [PhosLo] 667 mg PO DAILY PRN 08/20/19 11/06/19 Furosemide [Lasix] 40 mg PO BID 08/20/19 11/06/19 Insulin Lispro [humaLOG Kwikpen] See Protocol SQ AC-TID PRN 08/20/19 11/06/19 Vit C/E/Zn/Coppr/Lutein/Zeaxan 1 cap PO DAILY 08/20/19 11/06/19 [Preservision Areds 2 Softgel] Multivitamins, Thera [Multivitamin 1 tab PO DAILY@1200 11/06/19 11/06/19 (formulary)] Previous Rx's Medication Instructions Recorded Acetaminophen Tab [Tylenol] 650 mg PO Q6HR PRN tab 07/09/19 Darbepoetin Dinh [Aranesp] 40 mcg SQ Q7D syringe 08/28/19 Folic Acid 1 mg PO DAILY@1200 30 Days #30 tab 08/28/19 Thiamine [Vitamin B-1] 100 mg PO DAILY@1200 30 Days #30 08/28/19 tab Acetaminophen Tab [Tylenol] 650 mg PO Q6HR PRN tab 11/10/19 ALPRAZolam [Xanax] 0.25 mg PO TID PRN 3 Days #9 tab 11/11/19 DAPTOmycin [Cubicin] 600 mg IVPB Q48H 14 Days #9 vial 11/11/19 HYDROcodone/APAP 5-325MG [[place] 1 each PO Q4HR PRN #10 tab 11/11/19 5-325] INSULIN ASPART (NovoLOG) [NovoLOG 0 unit SQ ACHS vial 11/11/19 (formulary)] Linezolid 600 mg PO BID 28 Days #18 tablet 11/11/19 cefTAZidime [Fortaz] 2 gm IVPB DAILY 42 Days #18 vial 11/11/19 Allergies Allergy/AdvReac Type Severity Reaction Status Date / Time sulfamethoxazole AdvReac Unknown Nausea & Verified 01/23/20 13:22 [From Bactrim] Vomiting trimethoprim [From Bactrim] AdvReac Unknown Nausea & Verified 01/23/20 13:22 Vomiting Review of Systems ROS Statement: Those systems with pertinent positive or pertinent negative responses have been documented in the HPI. ROS Other: All systems not noted in ROS Statement are negative. Past Medical History Past Medical History: Atrial Fibrillation, Asthma, Heart Failure, Diabetes Mellitus, Dialysis, Eye Disorder, GERD/Reflux, Hypertension, Osteoarthritis ( OA), Pneumonia, Renal Disease, Respiratory Disorder, Rheumatoid Arthritis (RA), Seizure Disorder Additional Past Medical History / Comment(s): ESRD with hemodialysis, mineral bone disease, chronic anemia, IDDM type II, diabetic retinopathy-"legally blind", chronic neuropathy in toes/bilateral feet and left leg, bilateral lower leg edema, cellulitis bilateral lower legs, bilateral leg/foot wounds/sees Dr. 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 History of Any Multi-Drug Resistant Organisms: MRSA, VRE Date of last positivie culture/infection: 11/08/19 MDRO Source:: TOE VRE MRSA Past Surgical History: Hernia Repair, Orthopedic Surgery Additional Past Surgical History / Comment(s): Bilateral cataract surgery, insertion dialysis catheter left arm then had a procedure done to dialysis catheter at [facility]-cannot recall exactly what was done, PICC line insertion/removed, bilateral inguinal hernina repairs, colonoscopy/polypectomy, R shoulder rotator cuff repair, debridements bilateral feet. Past Anesthesia/Blood Transfusion Reactions: No Reported Reaction Additional Past Anesthesia/Blood Transfusion Reaction / Comment(s): Pt received blood in past without reaction. Past Psychological History: Anxiety, Depression Smoking Status: Former smoker Past Alcohol Use History: None Reported Past Drug Use History: None Reported - Past Family History Mother Family Medical History: Diabetes Mellitus Father Family Medical History: Cancer Additional Family Medical History / Comment(s): Metastatic cancer. Pt cannot recall primary. General Exam - General Exam Comments Initial Comments: GENERAL: Patient is well-developed and well-nourished. Patient is nontoxic and well-hy drated and is in no acute distress. ENT: Neck is soft and supple. No significant lymphadenopathy is noted. Oropharynx is clear. Moist mucous membranes. Neck has full range of motion without elici ting any pain. EYES: The sclera were anicteric and conjunctiva were pink and moist. Extraocular movements were intact and pupils were equal round and reactive to light. Eyelids were unremarkable. PULMONARY: Unlabored respirations. Good breath sounds bilaterally. No audible rales rhonchi or wheezing was noted. CARDIOVASCULAR: There is a regular rate and rhythm without any murmurs gallops or rubs. ABDOMEN: Soft and nontender with normal bowel sounds. SKIN: Skin is clear with no lesions or rashes and otherwise unremarkable. NEUROLOGIC: Patient is alert and oriented x3. Cranial nerves II through XII are grossly intact. Motor and sensory are also intact. Normal speech, volume and content. Symmetrical smile MUSCULOSKELETAL: Normal extremities with adequate strength and full range of motion. LYMPHATICS: No significant lymphadenopathy is noted PSYCHIATRIC: Normal psychiatric evaluation. Limitations: no limitations Course Vital Signs 01/23/20 13:19 Temperature 102.7 F H Pulse Rate 103 H Respiratory 26 H Rate Blood Pressure 141/77 O2 Sat by Pulse 100 Oximetry Medical Decision Making - Medical Decision Making Patient initially wanted to leave but after about 45 minutes he decided he wanted to be evaluated. Nursing got him in bed and put a gown and once he got in bed he decided that he didn't want to stay anymore and demanded to leave. Patient will sign out AMA. Patient was told the risks of possibly leaving could be morbidity or mortality. Disposition Clinical Impression: Fever Disposition: Left Against Medical Advice Instructions (If sedation given, give patient instructions): Fever in Adults (ED) Is patient prescribed a controlled substance at d/c from ED?: No Referrals: Nell Rosen MD [Primary Care Provider] - 1-2 days Time of Disposition: 14:19
== END 2020-01-23 14:40 | disposition left against medical advice (07) ==
LOC: EC 13:13
DX: R50.9 Fever, unspecified (principal); I13.2 Hypertensive heart and chronic kidney disease with heart failure and with stage 5 chronic kidney disease, or end stage renal disease; E11.22 Type 2 diabetes mellitus with diabetic chronic kidney disease; N18.6 End stage renal disease; E11.40 Type 2 diabetes mellitus with diabetic neuropathy, unspecified; E11.319 Type 2 diabetes mellitus with unspecified diabetic retinopathy without macular edema; I50.9 Heart failure, unspecified; J45.909 Unspecified asthma, uncomplicated; M06.9 Rheumatoid arthritis, unspecified; M19.90 Unspecified osteoarthritis, unspecified site; G89.29 Other chronic pain; M54.9 Dorsalgia, unspecified; K21.9 Gastro-esophageal reflux disease without esophagitis; H54.8 Legal blindness, as defined in USA; Z79.82 Long term (current) use of aspirin; Z79.51 Long term (current) use of inhaled steroids; Z79.899 Other long term (current) drug therapy; Z88.2 Allergy status to sulfonamides; Z88.1 Allergy status to other antibiotic agents; Z87.891 Personal history of nicotine dependence; Z53.29 Procedure and treatment not carried out because of patient's decision for other reasons; Z99.2 Dependence on renal dialysis
CPT/HCPCS: 99283

== ENCOUNTER 2020-01-24 10:59 | Inpatient (IN) | payer MEDICARE ==
[2020-01-24] MEDS ORDERED: ACETAMINOPHEN TAB 500 MG TAB PO STA (11:23)
--- NOTE | 2020-01-24 11:27 | ED ---
General Adult HPI - General Chief complaint: Altered Mental Status Stated complaint: Fever Time Seen by Provider: 01/24/20 11:01 Source: patient, EMS, RN notes reviewed Mode of arrival: EMS Limitations: no limitations - History of Present Illness Initial comments: Patient is a pleasant 69-year-old male presenting to the emergency department from home by EMS for fever. Patient reportedly was here with similar symptoms yesterday. Patient complains of feeling dehydrated and thirsty. Patient feels generally weak all over. Unclear exact onset. Patient reportedly does have leg wounds and has his legs wrapped. Patient denies any isolated area of weakness. - Related Data Home Medications Medication Instructions Recorded Confirmed Etanercept [Enbrel] 50 mg SQ LUU 06/12/14 11/06/19 NIFEdipine [NIFEdipine ER] 60 mg PO DAILY 06/12/14 11/06/19 Aspirin EC [Ecotrin Low Dose] 81 mg PO DAILY 07/31/18 11/06/19 gemfibroziL [Lopid] 600 mg PO BID 07/31/18 11/06/19 Budesonide-Formot 160-4.5 Mcg 2 puff INHALATION RT-BID 02/26/19 11/06/19 [Symbicort 160-4.5 Mcg Inhaler] Calcium Acetate [PhosLo] 2,001 mg PO TID-W/MEALS 02/26/19 11/06/19 Magnebind 250/300mg 3 tab PO BID-W/MEALS 02/26/19 11/06/19 Metoprolol Tartrate [Lopressor] 50 mg PO BID 02/26/19 11/06/19 Omeprazole 40 mg PO DAILY 02/26/19 11/06/19 Prorenal + D 1 tab PO DAILY 02/26/19 11/06/19 Albuterol Nebulized [Ventolin 2.5 mg INHALATION RT-TID 03/17/19 11/06/19 Nebulized] levOCARNitine [Levocarnitine] 330 mg PO TID-W/MEALS 06/27/19 11/06/19 Calcium Acetate [PhosLo] 667 mg PO DAILY PRN 08/20/19 11/06/19 Furosemide [Lasix] 40 mg PO BID 08/20/19 11/06/19 Insulin Lispro [humaLOG Kwikpen] See Protocol SQ AC-TID PRN 08/20/19 11/06/19 Vit C/E/Zn/Coppr/Lutein/Zeaxan 1 cap PO DAILY 08/20/19 11/06/19 [Preservision Areds 2 Softgel] Multivitamins, Thera [Multivitamin 1 tab PO DAILY@1200 11/06/19 11/06/19 (formulary)] Previous Rx's Medication Instructions Recorded Acetaminophen Tab [Tylenol] 650 mg PO Q6HR PRN tab 07/09/19 Darbepoetin Dinh [Aranesp] 40 mcg SQ Q7D syringe 08/28/19 Folic Acid 1 mg PO DAILY@1200 30 Days #30 tab 08/28/19 Thiamine [Vitamin B-1] 100 mg PO DAILY@1200 30 Days #30 08/28/19 tab Acetaminophen Tab [Tylenol] 650 mg PO Q6HR PRN tab 11/10/19 ALPRAZolam [Xanax] 0.25 mg PO TID PRN 3 Days #9 tab 11/11/19 DAPTOmycin [Cubicin] 600 mg IVPB Q48H 14 Days #9 vial 11/11/19 HYDROcodone/APAP 5-325MG [[place] 1 each PO Q4HR PRN #10 tab 11/11/19 5-325] INSULIN ASPART (NovoLOG) [NovoLOG 0 unit SQ ACHS vial 11/11/19 (formulary)] Linezolid 600 mg PO BID 28 Days #18 tablet 11/11/19 cefTAZidime [Fortaz] 2 gm IVPB DAILY 42 Days #18 vial 11/11/19 Allergies Allergy/AdvReac Type Severity Reaction Status Date / Time sulfamethoxazole AdvReac Unknown Nausea & Verified 01/23/20 13:22 [From Bactrim] Vomiting trimethoprim [From Bactrim] AdvReac Unknown Nausea & Verified 01/23/20 13:22 Vomiting Review of Systems ROS Statement: Those systems with pertinent positive or pertinent negative responses have been documented in the HPI. ROS Other: All systems not noted in ROS Statement are negative. Constitutional: Reports: fever, chills, weakness Eyes: Denies: eye pain ENT: Denies: ear pain Respiratory: Denies: cough, dyspnea Cardiovascular: Denies: chest pain Endocrine: Reports: fatigue Gastrointestinal: Denies: abdominal pain Genitourinary: Denies: dysuria Musculoskeletal: Denies: back pain Skin: Denies: rash Neurological: Denies: headache Past Medical History Past Medical History: Atrial Fibrillation, Asthma, Heart Failure, Diabetes Mellitus, Dialysis, Eye Disorder, GERD/Reflux, Hypertension, Osteoarthritis (OA), Pneumonia, Renal Disease, Respiratory Disorder, Rheumatoid Arthritis (RA), Seizure Disorder Additional Past Medical History / Comment(s): ESRD with hemodialysis, mineral bone disease, chronic anemia, IDDM type II, diabetic retinopathy-"legally blind", chronic neuropathy in toes/bilateral feet and left leg, bilateral lower leg edema, cellulitis bilateral lower legs, bilateral leg/foot wounds/sees Dr. 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 History of Any Multi-Drug Resistant Organisms: MRSA, VRE Date of last positivie culture/infection: 11/08/19 MDRO Source:: TOE VRE MRSA Past Surgical History: Hernia Repair, Orthopedic Surgery Additional Past Surgical History / Comment(s): Bilateral cataract surgery, insertion dialysis catheter left arm then had a procedure done to dialysis catheter at [facility]-cannot recall exactly what was done, PICC line insertion/removed, bilateral inguinal hernina repairs, colonoscopy/polypectomy, R shoulder rotator cuff repair, debridements bilateral feet. Past Anesthesia/Blood Transfusion Reactions: No Reported Reaction Additional Past Anesthesia/Blood Transfusion Reaction / Comment(s): Pt received blood in past without reaction. Past Psychological History: Anxiety, Depression Smoking Status: Former smoker Past Alcohol Use History: None Reported Past Drug Use History: None Reported - Past Family History Mother Family Medical History: Diabetes Mellitus Father Family Medical History: Cancer Additional Family Medical History / Comment(s): Metastatic cancer. Pt cannot recall primary. General Exam Limitations: no limitations General appearance: alert, in no apparent distress Head exam: Present: normocephalic Eye exam: Present: normal appearance ENT exam: Present: mucous membranes dry Neck exam: Present: normal inspection. Absent: meningismus Respiratory exam: Present: normal lung sounds bilaterally, other (Dialysis catheter right chest) Cardiovascular Exam: Present: regular rate, normal rhythm GI/Abdominal exam: Present: soft. Absent: tenderness Extremities exam: Present: normal inspection, other (Left arm edema which patient states is chronic. No tenderness or erythema.) Neurological exam: Present: alert Psychiatric exam: Present: normal affect, normal mood Skin exam: Present: normal color, other (Bilateral lower extremity leg wounds, mostly stage I or 2. Some callus formation right lateral mid foot) Course Vital Signs 01/24/20 11:00 Temperature 100.6 F H Pulse Rate 83 Respiratory 20 Rate Blood Pressure 124/64 O2 Sat by Pulse 98 Oximetry - Reevaluation(s) Reevaluation #1: 01/24/20 14:23 patient doeshave concern for sepsis criteria diagnosed at 1423. Blood culture and lactic acid have been ordered. IV antibiotics has been ordered. EKG Findings - EKG Comments: EKG Findings:: A. fib with a rate of 73. QRS 112. QT 388. QTC 427. Normal axis. Low QRS voltage. Septal Q waves. No acute ST change Medical Decision Making - Medical Decision Making patient reevaluated and updated. Patient still refuses to provide urine and still refuses to agreed to fully catheter. Patient updated on results and plan. Case was discussed with Dr. Arnold, covering for Dr. Wen, who will admit. - Lab Data Result diagrams: 01/24/20 11:52 01/24/20 11:52 Lab Results 01/24/20 01/24/20 01/24/20 Range/Units 11:52 11:52 11:52 WBC 14.7 H (3.8-10.6) k/uL RBC 2.66 L (4.30-5.90) m/uL Hgb 8.9 L (13.0-17.5) gm/dL Hct 27.5 L (39.0-53.0) % MCV 103.3 H (80.0-100.0) fL MCH 33.3 (25.0-35.0) pg MCHC 32.2 (31.0-37.0) g/dL RDW 14.2 (11.5-15.5) % Plt Count 113 L (150-450) k/uL Neutrophils % 92 % Lymphocytes % 2 % Monocytes % 2 % Eosinophils % 2 % Basophils % 1 % Neutrophils # 13.6 H (1.3-7.7) k/uL Lymphocytes # 0.2 L (1.0-4.8) k/uL Monocytes # 0.3 (0-1.0) k/uL Eosinophils # 0.3 (0-0.7) k/uL Basophils # 0.1 (0-0.2) k/uL Hypochromasia Slight Macrocytosis Slight PT (9.0-12.0) sec INR (<1.2) APTT (22.0-30.0) sec Sodium 131 L (137-145) mmol/L Potassium 4.4 (3.5-5.1) mmol/L Chloride 92 L (98-107) mmol/L Carbon Dioxide 26 (22-30) mmol/L Anion Gap 13 mmol/L BUN 47 H (9-20) mg/dL Creatinine 7.30 H* (0.66-1.25) mg/dL Est GFR (CKD-EPI)AfAm 8 (>60 ml/min/1.73 sqM) Est GFR (CKD-EPI)NonAf 7 (>60 ml/min/1.73 sqM) Glucose 298 H (74-99) mg/dL Lactic Ac Sepsis Rflx Plasma Lactic Acid John 3.5 H* (0.7-2.0) mmol/L Calcium 8.3 L (8.4-10.2) mg/dL Total Bilirubin 0.8 (0.2-1.3) mg/dL AST 23 (17-59) U/L ALT 15 (4-49) U/L Alkaline Phosphatase 92 (38-126) U/L Total Protein 6.3 (6.3-8.2) g/dL Albumin 2.7 L (3.5-5.0) g/dL 01/24/20 01/24/20 Range/Units 12:21 12:25 WBC (3.8-10.6) k/uL RBC (4.30-5.90) m/uL Hgb (13.0-17.5) gm/dL Hct (39.0-53.0) % MCV (80.0-100.0) fL MCH (25.0-35.0) pg MCHC (31.0-37.0) g/dL RDW (11.5-15.5) % Plt Count (150-450) k/uL Neutrophils % % Lymphocytes % % Monocytes % % Eosinophils % % Basophils % % Neutrophils # (1.3-7.7) k/uL Lymphocytes # (1.0-4.8) k/uL Monocytes # (0-1.0) k/uL Eosinophils # (0-0.7) k/uL Basophils # (0-0.2) k/uL Hypochromasia Macrocytosis PT 12.1 H (9.0-12.0) sec INR 1.2 H (<1.2) APTT 24.5 (22.0-30.0) sec Sodium (137-145) mmol/L Potassium (3.5-5.1) mmol/L Chloride (98-107) mmol/L Carbon Dioxide (22-30) mmol/L Anion Gap mmol/L BUN (9-20) mg/dL Creatinine (0.66-1.25) mg/dL Est GFR (CKD-EPI)AfAm (>60 ml/min/1.73 sqM) Est GFR (CKD-EPI)NonAf (>60 ml/min/1.73 sqM) Glucose (74-99) mg/dL Lactic Ac Sepsis Rflx Y Plasma Lactic Acid John (0.7-2.0) mmol/L Calcium (8.4-10.2) mg/dL Total Bilirubin (0.2-1.3) mg/dL AST (17-59) U/L ALT (4-49) U/L Alkaline Phosphatase (38-126) U/L Total Protein (6.3-8.2) g/dL Albumin (3.5-5.0) g/dL - Radiology Data Radiology results: image reviewed (Chest x-ray shows large left effusion) Critical Care Time Critical Care Time: Yes Total Critical Care Time: 32 Disposition Clinical Impression: Pleural effusion, Sepsis Disposition: ADMITTED IP TO THIS [facility] Condition: Serious Is patient prescribed a controlled substance at d/c from ED?: No Referrals: Nell Rosen MD [Primary Care Provider] - 1-2 days Decision Time: 14:24
[2020-01-24] MEDS: SODIUM CHLORIDE 0.9% 1,000 ML IV SCH ×2 (11:54→23:52)
[2020-01-24 12:11] LABS: Basophils # (A) 0.1 k/uL (0-0.2); Basophils % (A) 1 %; Eosinophils # (A) 0.3 k/uL (0-0.7); Eosinophils % (A) 2 %; HCT 27.5 % (39.0-53.0); HGB 8.9 gm/dL (13.0-17.5); Hypochromasia Slight; Lymphocytes # (A) 0.2 k/uL (1.0-4.8); Lymphocytes % (A) 2 %; MCH 33.3 pg (25.0-35.0); MCHC 32.2 g/dL (31.0-37.0); MCV 103.3 fL (80.0-100.0); Macrocytosis Slight; Mean Platelet Volume 9.5; Monocytes # (A) 0.3 k/uL (0-1.0); Monocytes % (A) 2 %; Neutrophils # (A) 13.6 k/uL (1.3-7.7); Neutrophils % (A) 92 %; Platelet Count 113 k/uL (150-450); RBC 2.66 m/uL (4.30-5.90); RDW 14.2 % (11.5-15.5); WBC 14.7 k/uL (3.8-10.6)
[2020-01-24 12:16] LABS: Albumin 2.7 g/dL (3.5-5.0); Calcium 8.3 mg/dL (8.4-10.2); Potassium 4.4 mmol/L (3.5-5.1); Total Bilirubin 0.8 mg/dL (0.2-1.3); Total Protein 6.3 g/dL (6.3-8.2)
--- NOTE | 2020-01-24 12:26 | XR ---
EXAMINATION TYPE: XR chest 2V DATE OF EXAM: 01/24/2020 CLINICAL HISTORY: Fever. TECHNIQUE: Frontal and lateral view of the chest. COMPARISON: 09/19/2019 chest radiograph FINDINGS: Right-sided internal jugular hemodialysis catheter distal tip at the cavoatrial junction. There is redemonstrated large left pleural effusion with near complete opacification of the left may thorax. Pulmonary vascular congestion on the right. No pneumothorax. Cardiac silhouette is obscured. There may be mild rightward mediastinal shift. Degenerative changes of the right shoulder are seen. IMPRESSION: Large left pleural effusion, with rightward mediastinal shift.
[2020-01-24 12:46] LABS: INR 1.2 (<1.2); Partial Thromboplastin Time 24.5 sec (22.0-30.0); Prothrombin Time 12.1 sec (9.0-12.0)
[2020-01-24] MEDS ORDERED: LEVOFLOXACIN 500MG-D5W PMX 500 MG in DEXTROSE/WATER 1 100ML.BAG IVPB STA (14:24)
[2020-01-24] MEDS ORDERED: NALOXONE 0.4 MG/ML 1 ML VIAL IV PRN (14:24)
[2020-01-24] MEDS ORDERED: LEVOFLOXACIN 500MG-D5W PMX 500 MG in DEXTROSE/WATER 1 100ML.BAG IVPB SCH (14:30)
--- NOTE | 2020-01-24 14:35 | XR ---
EXAMINATION TYPE: XR foot complete RT DATE OF EXAM: 01/24/2020 COMPARISON: NONE HISTORY: Foot infection TECHNIQUE: 3 views FINDINGS: There is absence of the little toe and most of the fifth metatarsal. There is surgical rese ction. I see no focal bone destruction. There is some vascular calcification. There is moderate plant ar and Achilles calcaneal spurring. IMPRESSION: Previous surgery. No acute bony abnormality. No specific sign of osteomyelitis.
[2020-01-24 16:40] LABS: Glucose,Whole Blood 270 mg/dL (75-99)
[2020-01-24] MEDS: ACETAMINOPHEN TAB 325 MG TAB PO PRN (17:36)
[2020-01-24] MEDS: MIDODRINE 5 MG TAB PO PRN (17:37)
[2020-01-24] MEDS ORDERED: CALCIUM ACETATE 667 MG TAB PO PRN (17:58)
[2020-01-24] MEDS ORDERED: diphenhydrAMINE 50 MG/ML 1 ML VIAL IVP STA (18:04)
[2020-01-24] MEDS ORDERED: ONDANSETRON 4 MG TAB PO PRN (18:07)
[2020-01-24] MEDS ORDERED: diphenhydrAMINE 50 MG/ML 1 ML VIAL ONE (18:11)
[2020-01-24] MEDS: FAMOTIDINE 20 MG TAB PO SCH (20:48)
[2020-01-24] MEDS: FUROSEMIDE 40 MG TAB PO SCH (20:48)
[2020-01-24] MEDS: INSULIN ASPART (NovoLOG) 100 UNIT/ML VIAL SQ SCH (20:49)
[2020-01-24 20:50] LABS: Glucose,Whole Blood 226 mg/dL (75-99)
[2020-01-24] MEDS: METOPROLOL TARTRATE 50 MG TAB PO SCH (20:51)
[2020-01-24] MEDS ORDERED: VANCOMYCIN IV PER PHARMACY 1 EACH MISC MISCELLANE PRN (21:23)
[2020-01-24] MEDS ORDERED: VANCOMYCIN IVPB ONE (21:23)
[2020-01-24] MEDS ORDERED: SODIUM CHLORIDE 0.9% IVPB ONE (21:23)
[2020-01-24] MEDS ORDERED: TEMAZEPAM 15 MG CAP PO PRN (21:25)
[2020-01-24] MEDS: ALPRAZolam 0.25 MG TAB PO PRN (22:08)
[2020-01-24] MEDS: HYDROmorphone 0.5 MG/0.5 ML SYRINGE IVP PRN (22:09)
[2020-01-24] MEDS: HYDROcodone/APAP 5-325MG 1 EACH TAB PO PRN (22:09)
--- NOTE | 2020-01-24 22:15 | HP ---
HISTORY AND PHYSICAL CHIEF COMPLAINT: Fever. HISTORY OF PRESENT ILLNESS: This 69-year-old gentleman with a past medical history of multiple medical problems including atrial fibrillation, asthma, CHF, diabetes, hemodialysis, history of hypertension, DJD, being followed by Dr. Rosen in the outpatient setting, complaining of fever. The patient is slightly confused. Patient also had significant infection with cellulitis of both feet also. The patient is also dehydrated and the patient was found to have significant pleural effusion on the chest x-ray on the left side with infiltrates on the right side, possibly indicating pneumonia. The patient admitted to the hospital for further evaluation and treatment. The patient complained of occasional cough also. There is no history of any headache, loss of consciousness or seizures at this time. Covid-19 test has been requested. PAST MEDICAL HISTORY: History of atrial fibrillation, asthma, CHF, history of diabetes, hemodialysis, DJD, history of pneumonia. MEDICATIONS: Home medications are: 2. Lopid. 3. Omeprazole. 5. Metoprolol. 6. Lasix. 7. Enbrel. 8. PhosLo. 9. Ecotrin. 10.Tylenol. 11.Xanax. ALLERGIES: BACTRIM. FAMILY HISTORY: Family history of metastatic cancer in the family. SOCIAL HISTORY: Previous history of smoking. No current smoking or alcohol. REVIEW OF SYSTEMS: ENT diminished vision. Diminished hearing. CARDIOVASCULAR: As mentioned earlier. RESPIRATORY: As mentioned earlier. GI: As mentioned earlier. : As mentioned earlier. NERVOUS SYSTEM: No numbness, weakness. ALLERGY/IMMUNOLOGY: No asthma or hayfever. MUSCULOSKELETAL: As mentioned earlier. HEMATOLOGY/ONCOLOGY: No history of anemia. ENDOCRINE: As mentioned earlier. CONSTITUTIONAL: As mentioned earlier. DERMATOLOGY: As mentioned earlier. RHEUMATOLOGY: Negative. PSYCHIATRY: As mentioned. PHYSICAL EXAMINATION: Alert and oriented x2. Pulse 92. Blood pressure 93/50, respirations 18. Temperature 98.4, pulse ox 100 percent on 5 L. HEENT: Conjunctivae normal. Oral mucosa moist. NECK is no jugular venous distention. No carotid bruit. No lymph node enlargement. CARDIOVASCULAR: S1, S2 muffled. No S3, no S4. RESPIRATORY: Breath sounds diminished in the bases. A few scattered rhonchi and crackles. ABDOMEN: Soft. Nontender. LEGS: No edema. No swelling. NERVOUS SYSTEM: Higher functions as mentioned earlier. Moves all four limbs. Diffusely weak. LYMPHATICS: No lymph nodes palpable in the neck, axillae or groin. SKIN: Significant cellulitis of the both feet present. Otherwise, dry skin also present. JOINTS: No active deforming arthropathy. LAB: At this time, WBC 14.2, hemoglobin is 8.9, sodium 130, potassium 4.4. Creatinine is 1.30. Lactic acid 2.5. COVID-19 is negative. ASSESSMENT: 1. Possible acute bilateral pneumonia, right more the left with possible sepsis, present on admission. 2. Acute bilateral cellulitis and possibly early gangrene with sepsis. 3. Rule out congestive heart failure. 4. Change in mental status, metabolic encephalopathy, acute, multifactorial. 5. Increased WBC. 6. Macrocytic anemia. 7. Hyponatremia. 8. End-stage renal disease on hemodialysis. 9. Elevated plasma lactic acid secondary to sepsis. 10.Hypoalbuminemia with mild to moderate protein calorie malnutrition. 11.History of atrial fibrillation. 12.History of asthma. 13.History of congestive heart failure. 14.Diabetes mellitus type 2. 15.Gastroesophageal reflux disease. 16.Hypertension. 17.History of degenerative joint disease. 18.History of rheumatoid arthritis. 19.History of seizure disorder. 20.History of diabetic retinopathy, legal blindness. 21.History of bilateral leg wounds. 22.Paroxysmal atrial fibrillation. 23.History of MRSA VRE. 24.History of hernia surgery. 25.History of anxiety, depression. RECOMMENDATIONS AND DISCUSSION: This 69-year-old gentleman who presented with multiple complex medical issues, we will monitor the patient closely, continue the current medications, management and symptomatic treatment. We will initiate broad-spectrum IV antibiotics. Pulmonary consultation. Otherwise, nephrology consultation. I would also recommend vascular surgery consultation for the foot. Arterial study has been done in the outpatient setting in May of this year showed mild bilateral disease. The overall prognosis extremely guarded because of multiple complex medical issues as mentioned earlier. COVID-19 has also been requested. Further recommendations to follow. A CT of the chest also will be requested without contrast. MMODL / IJN: [id number] / MTDD
[2020-01-24] MEDS ORDERED: DAPTOmycin 500 MG in SODIUM CHLORIDE 0.9% 50 ML IVPB SCH (23:00)
[2020-01-24] MEDS: FENOFIBRATE 160 MG TAB PO SCH (23:57)
[2020-01-25 05:23] LABS: Calcium 8.6 mg/dL (8.4-10.2); Potassium 4.1 mmol/L (3.5-5.1)
[2020-01-25 05:39] LABS: Basophils # (A) 0.1 k/uL (0-0.2); Basophils % (A) 1 %; Eosinophils # (A) 0.4 k/uL (0-0.7); Eosinophils % (A) 2 %; HGB 9.1 gm/dL (13.0-17.5); Hypochromasia Moderate; Lymphocytes # (A) 0.6 k/uL (1.0-4.8); Lymphocytes % (A) 4 %; MCHC 31.4 g/dL (31.0-37.0); MCV 104.9 fL (80.0-100.0); Macrocytosis Moderate; Mean Platelet Volume 10.4; Monocytes # (A) 0.4 k/uL (0-1.0); Monocytes % (A) 3 %; Neutrophils # (A) 13.9 k/uL (1.3-7.7); Neutrophils % (A) 89 %; Platelet Count 138 k/uL (150-450); RBC 2.77 m/uL (4.30-5.90); RDW 14.3 % (11.5-15.5); WBC 15.6 k/uL (3.8-10.6)
[2020-01-25 06:34] LABS: Glucose,Whole Blood 103 mg/dL (75-99)
[2020-01-25] MEDS: levOCARNitine (WITH SUGAR) 100 MG/ML BOTTLE PO SCH ×3 (06:38→18:25)
[2020-01-25] MEDS: INSULIN ASPART (NovoLOG) 100 UNIT/ML VIAL SQ SCH ×4 (06:38→21:02)
[2020-01-25] MEDS: CALCIUM ACETATE 667 MG TAB PO SCH ×3 (06:38→18:26)
[2020-01-25] MEDS: CALCIUM CARB-MAG CARB-FOLIC 1 EACH TAB PO SCH ×3 (06:38→18:25)
[2020-01-25] MEDS: PANTOPRAZOLE 40 MG TABLET PO SCH (06:39)
[2020-01-25] MEDS: HYDROcodone/APAP 5-325MG 1 EACH TAB PO PRN ×2 (08:21→21:01)
[2020-01-25] MEDS: METOPROLOL TARTRATE 50 MG TAB PO SCH (08:22)
[2020-01-25] MEDS: FUROSEMIDE 40 MG TAB PO SCH ×2 (08:23→21:02)
[2020-01-25] MEDS: ASPIRIN 81 MG PO SCH (08:23)
[2020-01-25] MEDS: ALPRAZolam 0.25 MG TAB PO PRN (08:23)
[2020-01-25] MEDS: HEPARIN SODIUM,PORCINE 5,000 UNIT/ML 1 ML VIAL SQ SCH ×2 (08:24→21:02)
--- NOTE | 2020-01-25 08:38 | US ---
EXAMINATION TYPE: US chest DATE OF EXAM: 01/25/2020 COMPARISON: X ray from yesterday, US September 19, 2019. CLINICAL HISTORY: Markings for thoracentesis by pulmonary staff. Left pleural effusion TECHNIQUE: Targeted ultrasound of the posterior chest bilaterally. EXAM MEASUREMENTS: Right Pleural Effusion pocket size: no fluid seen Left Pleural Effusion pocket size: 13.4 cm; however free fluid pocket size = 8.6cm A/P on Sagittal V iew Left skin surface to fluid distance: 4.4 cm Left side was marked for possible thoracentesis outside the dept. Hyperechoic debris and lung was not ed in posterior portion of fluid pocket. Pulmonologists are able to review the images in the patient?s EMR. There is moderate to large size left pleural effusion or fluid collection on images saved which corre lates with x-ray one day earlier. IMPRESSIONS: As above.
[2020-01-25] MEDS: VIT A,C & E-LUTEIN-MINERALS 1 EACH TAB PO SCH (08:41)
[2020-01-25] MEDS: FOLIC ACID-VIT B COMPLEX-VIT C 1 CAP PO SCH (08:41)
--- NOTE | 2020-01-25 10:11 | CDI ---
Documentation Clarification Form Date: 01/25/2020 09:59:50 AM From: Sherri Cuevas RN, CCDS Admit Date: 01/24/2020 02:24:00 PM Patient Name: Grzegorz Palma Visit Number: [id number] ATTENTION: The Clinical Documentation Specialists (CDI) and [facility] Coding Staff appreciate your assistance in clarifying documentation. Please respond to the clarification below the line at the bottom and electronically sign. The CDI & [facility] Coding staff will review the response and follow-up if needed. Please note: Queries are made part of the Legal Health Record. If you have any questions, please contact the author of this message via ITS. Dr. Germain Dowd Pneumonia was documented in the H&P and requires further specificity. History/Risk Factors: Pneumonia, Asthma, RA, DM2, ESRD on HD, CHF, Metabolic encephalopathy and sepsis this admission Clinical Indicators: 01/23 H&P: "Possible acute bilateral pneumonia, right more the left with possible sepsis, present on admission. Covid-19 is negative." 01/23 1100 Admission Vital signs: temp 100.6, HR 83, RR 20, b/p 124/64, spo2 98% 3l NC 01/23-01/24 WBC:14.7/15.6 Left shift: 13.6/13.9 Lactic Acid 5.2 01/23 CXR:"Large left pleural effusion, with rightward mediastinal shift." 01/23 H&P Lung/Breathing assessment: "RESPIRATORY: Breath sounds diminished in the bases.A few scattered rhonchi and crackles." Treatment: Antibiotics: 01/23 Daptomycin 500 mg IVPB Q 48 hrs, 01/23 Levaquin 500 mg IVPB Q 24 hrs, IV Vancomycin PTD O2: maintained at 2-5L NC Breathing Tx: none ordered In order to capture the severity of condition, please clarify if the condition signifies and you are treating for: Aspiration Pneumonia, identify if: Due to solids or liquids Bacterial Pneumonia, specify causal organism (if known) Gram Negative Pneumonia Due to Strep Due to Staph Due to E. Coli Other bacteria (please specify) Other, please specify Unable to determine (Last Revision: July 2017) Bacterial Pneumonia, possibly Gram Negative Pneumonia MTDD
--- NOTE | 2020-01-25 10:19 | CDI ---
Documentation Clarification Form Date: 01/25/2020 10:11:44 AM From: Sherri Cuevas RN, CCDS Admit Date: 01/24/2020 02:24:00 PM Patient Name: Grzegorz Palma Visit Number: [id number] ATTENTION: The Clinical Documentation Specialists (CDI) and [facility] Coding Staff appreciate your assistance in clarifying documentation. Please respond to the clarification below the line at the bottom and electronically sign. The CDI & [facility] Coding staff will review the response and follow-up if needed. Please note: Queries are made part of the Legal Health Record. If you have any questions, please contact the author of this message via ITS. Dr. Germain Dowd Mild to Moderate Malnutrition has been documented in H&P and requires further specificity as per coding guidelines, range diagnosis can no longer be coded and must be clearly specified. History/Risk Factors: CHF, COPD, ESRD on HD, Asthma, Macrocytic Anemia, Paroxysmal Atrial Fib, GERD, Anxiety,Depression Clinical Indicators: 01/23 H&P: "Hypoalbuminemia with mild to moderate protein calorie malnutrition 01/23-01/24 Labs: BUN 47/44, Creatinine 7.3/5.95, lactic acid 5.2/1.8, total protein 6.3, Albumin 2.7 Current BMI: 31 Treatment: Dietary Consult: no dietary consult ordered Supplements: none ordered Lab monitoring: AM Daily Renal Diet In your professional opinion, can you please clarify if these findings signify one of the following conditions? Mild Protein-Calorie Malnutrition Moderate Protein-Calorie Malnutrition Other condition, please specify Unable to determine (Last Revision: September 2018) none MTDD
--- NOTE | 2020-01-25 10:36 | CDI ---
Documentation Clarification Form Date: 01/25/2020 10:20:48 AM From: Sherri Cuevas RN, CCDS Admit Date: 01/24/2020 02:24:00 PM Patient Name: Grzegorz Palma Visit Number: [id number] ATTENTION: The Clinical Documentation Specialists (CDI) and [facility] Coding Staff appreciate your assistance in clarifying documentation. Please respond to the clarification below the line at the bottom and electronically sign. The CDI & [facility] Coding staff will review the response and follow-up if needed. Please note: Queries are made part of the Legal Health Record. If you have any questions, please contact the author of this message via ITS. Dr. Germain Dowd CHF is documented in the H&P and requires further specificity. History/Risk Factors: Atrial Fib, COPD, Asthma, CHF, Pneumonia, ESRD on HD Clinical Indicators: 01/23 H&P: "Rule out congestive heart failure. History of congestive heart failure." 01/24/2020 1100 Admission VS/Pulse OX: Temp 100.6, HR 83, RR 20, B/P 124/64, Spo2 98% 3l nc BNP: not checked 05/19/2019 Echocardiogram Results: EF 40-45% 01/24/2020 :"Large left pleural effusion, with rightward mediastinal shift." Treatment: Lasix 40 mg PO BID Lopressor 50 mg PO BID Procardia XL 60 mg PO Daily In your professional opinion, can you please clarify the acuity and type of CHF if known? Systolic Heart Failure: Acute Chronic Acute on Chronic Systolic & Diastolic Heart Failure: Acute Chronic Acute on Chronic Heart Failure Unable to Determine Other, please specify (Last Revision: July 2017) Systolic Heart Failure: Chronic MTDD
[2020-01-25 11:37] LABS: Glucose,Whole Blood 197 mg/dL (75-99)
--- NOTE | 2020-01-25 11:46 | CONS ---
CONSULTATION PULMONARY/CRITICAL CARE CONSULTATION: DATE OF SERVICE: January 25, 2020 REASON FOR CONSULTATION: Fever and pleural effusion. HISTORY OF PRESENT ILLNESS: This is a 69-year-old gentleman with a history of renal failure. The patient apparently came into the emergency room on 01/23 at 10:59 by EMS. The patient apparently was brought there because of fever. He apparently had fever for at least 2 days prior to admission. He also was feeling very weak and dehydrated and very thirsty. He felt weak all over. The patient in the room was complaining of pain. I asked him where the pain was. He said it was on the left side of his lateral and lower chest area. He was requesting some Tylenol. He seemed pretty grumpy at the time. Not a particularly good historian. I believe we were consulted primarily for a chest x-ray which showed a left pleural effusion. The plan would be to order an ultrasound and consider thoracentesis once that is performed. He really did not complain of being short of breath. He was on some nasal O2. He denied any chest pain. There is no nausea, vomiting or diarrhea. MEDICATIONS: Reviewed. He is on Enbrel, nifedipine, Ecotrin, Lopid, Symbicort, PhosLo, MagneBind, metoprolol, omeprazole, ProRenal Plus D, albuterol updrafts, levocarnitine, calcium acetate, Lasix, insulin, PreserVision I-vitamins, multivitamins, Tylenol, Aranesp, folic acid, thiamine, Xanax, daptomycin, [place], insulin, Zyvox, Fortaz. ALLERGIES: BACTRIM. PAST MEDICAL HISTORY: Includes atrial fibrillation, chronic bronchial asthma, heart failure, diabetes, end- stage renal disease, currently on hemodialysis, GERD, hypertension, osteoarthritis, pneumonia, chronic renal failure, rheumatoid arthritis, and seizure disorder. In addition, the patient has a history of anemia of chronic disease, diabetic retinopathy, blindness, diabetic neuropathy, lower extremity cellulitis, bilateral leg and foot wound, chronic left pleural effusion with previous thoracentesis, paroxysmal atrial fibrillation, mitral valve endocarditis, sepsis, and chronic back pain. The patient also has a prior history of MRSA infection and vancomycin-resistant enterococcal infection. SURGICAL HISTORY: Includes hernia repair, bilateral cataract surgery, dialysis catheter insertion, PICC line insertion and removal, colonoscopy, polypectomy, right rotator cuff surgery, bilateral feet debridement, among other procedures. SOCIAL HISTORY: Positive for previous tobacco use. He denies alcohol use. Denies illicit drug use. FAMILY HISTORY: Positive for father with metastatic cancer and mother with diabetes mellitus. REVIEW OF SYSTEMS: CONSTITUTIONAL: Weakness, thirst, dehydration. NEUROLOGIC: Mental status changes. HEENT negative. CARDIOVASCULAR negative. PULMONARY negative. GI negative. negative. RHEUMATOLOGIC negative. IMMUNOLOGIC negative. ENDOCRINOLOGIC negative. DERMATOLOGIC negative. PHYSICAL EXAMINATION: VITAL SIGNS: Current vital signs are reviewed. Temperature is 97.8, heart rate 83, respiratory rate 20, pulse is 101/52, mean 68 and 3 L saturation 98%. His T-max here was 100.6 on January 23. GENERAL: He appears in no acute distress. He is sitting up in a chair. HEENT: Examination is grossly unremarkable. Nasal O2 noted. NECK: Supple. Full range of motion. Neck veins are flat. CARDIOVASCULAR: Examination reveals regular rhythm and rate. Heart rate 80 beats per minute. S1, S2 normal. LUNGS: Reveal diminished breath sounds on the left. There is dullness at the left base. No crackles. No wheezes. Right lung is clear. ABDOMEN: Soft. EXTREMITIES: Are wrapped. SKIN: Without rash. NEUROLOGIC: Examination is difficult to assess. Appears to be relatively normal. He does move all 4 extremities and he is appropriate in his responses. LABS: Reviewed. White count 15.6, hemoglobin 9.1, hematocrit 29.0, platelets 138,000. Sodium, potassium chloride, CO2 all normal. Anion gap normal. BUN and creatinine were 44 and 5.95, glucose 108. Lactic acid 3.4, repeat 1.8. Cultures are negative. A chest x-ray done shows a large left-sided pleural effusion. Ultrasound is ordered. Current medications include Tylenol, Xanax, aspirin, PhosLo, MagneBind, daptomycin, Pepcid, Lofibra, folic acid, Lasix, heparin, [place], Dilaudid p.r.n., insulin, levocarnitine, Levaquin, metoprolol, midodrine, Narcan, nifedipine, Zofran, Protonix, Restoril and vitamins. ASSESSMENT: 1. Mental status changes, of unclear etiology. This may relate to underlying infection. Thus far, cultures are negative. 2. Chronic left-sided pleural effusions with previous thoracentesis in the past. 3. End-stage renal disease, currently on 3 time a week hemodialysis. 4. History of atrial fibrillation. 5. History of asthma. 6. History of congestive heart failure. 7. Diabetes mellitus by history. 8. Diabetic retinopathy and neuropathy. 9. Gastroesophageal reflux disease. 10.Hypertension. 11.Degenerative joint disease. 12.History of pneumonia. 13.History of rheumatoid arthritis. 14.Seizure disorder. 15.Multiple other medical problems and comorbidities. PLAN: An ultrasound of the chest will be ordered. He may benefit from thoracentesis. Currently, he is on broad-spectrum antibiotics. Culture data is thus far negative. He is not having any respiratory distress. We will continue to follow. Prognosis is guarded. MMODL / IJN: [id number] /
[2020-01-25] MEDS: ACETAMINOPHEN TAB 325 MG TAB PO PRN (12:11)
[2020-01-25] MEDS: SODIUM CHLORIDE 0.9% 1,000 ML IV SCH ×3 (12:16→17:08)
--- NOTE | 2020-01-25 12:41 | CONS ---
CONSULTATION REASON FOR CONSULT: End-stage renal disease. HISTORY OF PRESENT ILLNESS: The patient is a 69-year-old male with end-stage renal disease, on hemodialysis on a Sunday, Sunday, Sunday schedule. He was admitted to the hospital with complaints of increased shortness of breath. He was also confused. The patient has significant infection, bilateral feet. He has had recurrent pleural effusion requiring thoracentesis. The patient has had multiple admissions to the hospital. He has also been noncompliant with hemodialysis as outpatient. He had missed his treatment on Sunday, and we tried to dialyze him yesterday however he did not continue treatment for more than 30 minutes secondary to significant pain and wanted to come off. No history of cough, diarrhea, nausea, vomiting or abdominal pain. PAST MEDICAL HISTORY: End-stage renal disease, history of coronary artery disease, hypertension, CKD mineral bone disorder, history of diabetes, anemia of chronic disease, diabetic retinopathy, chronic bilateral feet wounds and ulcers. The patient used to go to the wound clinic. Follows with Dr. Scales. He has a history of endocarditis with vegetations on mitral valve, status post antibiotics, history of paroxysmal atrial fibrillation, and neuropathy. PAST SURGICAL HISTORY: Hernia repair, orthopedic surgery, cataract surgery, multiple I and Ds on wounds, history of PICC line placement and removal, AV fistula for dialysis, right shoulder rotator cuff repair, polypectomy, colonoscopy. SOCIAL HISTORY: Positive for patient being a former smoker. No history of drug abuse or alcohol abuse. MEDICATIONS: Medications prior to admission are multiple, please see list. ALLERGIES: Include BACTRIM. REVIEW OF SYSTEMS: As per HPI. Other systems negative. EXAMINATION: Patient is comfortable, awake, he is not in any acute distress. Blood pressure was low at 101/52 and then 88/52. Heart rate 66 per minute. He is slightly slumped. Patient is afebrile. Examination of the heart S1, S2. Examination of the lungs, bilateral breath sounds are heard. Decreased breath sounds at bases. ABDOMEN: Soft, nontender, obese. Exam of lower extremities shows bilateral extremities to be wrapped. [employer] exam shows patient is awake. He is not confused. LABS: Show sodium 137, potassium 4.1, chloride 99, BUN 44, creatinine 5.9, hemoglobin 9.1 g/dL. Lactic acid was 3.4, down to 1.8. ASSESSMENT: 1. End-stage renal disease, on hemodialysis on a Sunday, Sunday, Sunday schedule. 2. Chronic bilateral lower extremity wounds currently maintained on daptomycin. 3. CKD mineral bone disorder on maintained on PhosLo. 4. Hypotension maintained on midodrine on a routine basis. 5. History of paroxysmal atrial fibrillation, currently on Lopressor, rate is controlled. I will discontinue the nifedipine. 6. Volume overload with noncompliance with hemodialysis treatments as outpatient. We will plan to dialyze the patient again tomorrow. I will give him Benadryl. Hold off on IV fluids. PLAN: DC IV fluids. Continue with Lasix. DC nifedipine and repeat hemodialysis tomorrow. MMODL / IJN: [id number] /
[2020-01-25] MEDS ORDERED: LEVOFLOXACIN 500MG-D5W PMX 500 MG in DEXTROSE/WATER 1 100ML.BAG IVPB SCH (14:00)
[2020-01-25] MEDS ORDERED: VANCOMYCIN IV PER PHARMACY 1 EACH MISC MISCELLANE PRN (15:24)
--- NOTE | 2020-01-25 15:56 | PN ---
PROGRESS NOTE DATE OF SERVICE: 01/25/2020 This 69-year-old gentleman admitted with fever and possible sepsis also had possible bilateral pneumonia and as well as bilateral leg cellulitis. The patient closely monitored at this time. The patient also has significant pneumonia on the left side also. Dr. Guevara saw the patient recommended possibly thoracocentesis. Dr. Greenberg also saw the patient from the kidney point of view, the patient's creatinine 5.93. Blood sugars are mildly elevated. White count is 15.2. The patient is on broad-spectrum IV antibiotics. The blood cultures showing Staph aureus. The final ID is pending at this time. Past medical history reviewed. REVIEW OF SYSTEMS: Cardiovascular system: S1, S2. Respiration: As mentioned earlier. GI as mentioned earlier. :No dysuria. Nervous systems: No focal deficits. CURRENT MEDICATIONS: Tylenol, [place], Xanax, aspirin, PhosLo, daptomycin, Pepcid, Lofibra, Lasix, heparin, Levaquin. Narcan Protonix. Vancomycin, PHYSICAL EXAM: Patient is alert, oriented x3. Pulse 80. Blood pressure 85/49, respirations 16, temperature 98.1, pulse ox 100 percent on 3 L. HEENT: Conjunctivae normal. NECK: No JVD. CARDIOVASCULAR: S1, S2 muffled. RESPIRATIONS: Breath sounds diminished in the bases. A few scattered rhonchi and crackles. ABDOMEN: Soft, nontender. LEGS: No edema. No swelling. Nervous system: No focal deficits. LAB STUDIES: WBC 15.2, hemoglobin 9.1. ASSESSMENT: 1. Possible bilateral acute pneumonia, right more the left with possible sepsis present on admission. 2. Possible Staph sepsis exact etiology unknown. 3. Acute bilateral leg cellulitis and possible early gangrenous sepsis. 4. Rule out congestive heart failure, acute exacerbation. 5. Change in mental status, metabolic encephalopathy, acute on chronic. 6. Increased WBC. 7. Macrocytic anemia. 8. Hyponatremia. 9. End-stage renal disease on hemodialysis. 10.Elevated plasma lactic acid present on admission secondary to sepsis. 11.Hypoalbuminemia with mild to moderate protein calorie malnutrition. 12.History of atrial fibrillation. 13.History of asthma. 14.History of congestive heart failure. 15.Diabetes mellitus type 2. 16.Gastroesophageal reflux disease. 17.Hypertension. 18.History of degenerative joint disease. 19.History of rheumatoid arthritis. 20.Seizure disorder. 21.History of diabetic retinopathy, legal blindness. 22.History of bilateral leg wounds. 23.Paroxysmal atrial fibrillation history. 24.History of MRSA and VRE. 25.History of hernia surgery. 26.Anxiety, depression. RECOMMENDATIONS AND DISCUSSION: In this 69-year-old gentleman who presented with multiple complex medical issues, we will continue current medication, continue symptomatic treatment. I would recommend continue with vancomycin at this point and depending upon the final cultures, further determination of the antibiotic choice can be made. If there is no VRE grown from the culture in the next 1-2 days, the daptomycin may be stopped. Otherwise, we will continue to monitor. Prognosis guarded. We will repeat another set of blood cultures. Guarded prognosis. Further recommendations to follow. MMODL / IJN: [id number] /
[2020-01-25 16:31] LABS: Glucose,Whole Blood 217 mg/dL (75-99)
[2020-01-25] MEDS: MIDODRINE 5 MG TAB PO PRN ×2 (17:08→21:01)
[2020-01-25] MEDS ORDERED: SODIUM CHLORIDE 0.9% 500 ML 500 ML IV ONE (17:52)
[2020-01-25] MEDS: HYDROmorphone 0.5 MG/0.5 ML SYRINGE IVP PRN (18:26)
--- NOTE | 2020-01-25 18:56 | XR ---
EXAMINATION TYPE: XR chest 1V portable DATE OF EXAM: 01/25/2020 COMPARISON: 01/24/2020 HISTORY: Left pleural effusion short of breath TECHNIQUE: FINDINGS: There is opacification of more than 50% left hemithorax. Right lung is fairly clear. There is no heart failure. There is right central venous catheter with tip in the superior vena cava. Trach ea is midline. Thoracic aorta is atheromatous. IMPRESSION: There is large left pleural effusion and left lower lobe consolidation not significantly different than yesterday. No heart failure seen. Pulmonary congestion appears improved compared to ol d exam.
[2020-01-25 20:01] LABS: Glucose,Whole Blood 194 mg/dL (75-99)
[2020-01-25] MEDS ORDERED: VANCOMYCIN 1,750 MG in SODIUM CHLORIDE 0.9% 500 ML 500 ML IVPB ONE (21:00)
[2020-01-25] MEDS: FAMOTIDINE 20 MG TAB PO SCH (21:01)
[2020-01-25] MEDS: FENOFIBRATE 160 MG TAB PO SCH (21:02)
[2020-01-25] MEDS: METOPROLOL TARTRATE 25 MG TAB PO SCH (21:03)
[2020-01-26] MEDS: ACETAMINOPHEN TAB 325 MG TAB PO PRN ×3 (00:20→20:33)
[2020-01-26] MEDS: HYDROmorphone 0.5 MG/0.5 ML SYRINGE IVP PRN ×3 (00:20→16:13)
[2020-01-26] MEDS: SODIUM CHLORIDE 0.9% 1,000 ML IV SCH ×2 (01:53→20:25)
[2020-01-26 06:26] LABS: Glucose,Whole Blood 273 mg/dL (75-99)
[2020-01-26] MEDS: CALCIUM CARB-MAG CARB-FOLIC 1 EACH TAB PO SCH ×2 (06:45→18:38)
[2020-01-26] MEDS: CALCIUM ACETATE 667 MG TAB PO SCH ×3 (06:45→18:38)
[2020-01-26] MEDS: PANTOPRAZOLE 40 MG TABLET PO SCH (06:45)
[2020-01-26] MEDS: INSULIN ASPART (NovoLOG) 100 UNIT/ML VIAL SQ SCH ×4 (06:46→20:36)
[2020-01-26] MEDS: levOCARNitine (WITH SUGAR) 100 MG/ML BOTTLE PO SCH ×3 (06:47→18:38)
[2020-01-26 08:26] LABS: Basophils # (A) 0.1 k/uL (0-0.2); Basophils % (A) 1 %; Eosinophils # (A) 0.3 k/uL (0-0.7); Eosinophils % (A) 2 %; HCT 29.4 % (39.0-53.0); HGB 9.1 gm/dL (13.0-17.5); Hypochromasia Marked; Lymphocytes % (A) 6 %; MCH 33.2 pg (25.0-35.0); MCHC 30.9 g/dL (31.0-37.0); MCV 107.4 fL (80.0-100.0); Macrocytosis Moderate; Mean Platelet Volume 10.7; Monocytes # (A) 0.4 k/uL (0-1.0); Monocytes % (A) 2 %; Neutrophils # (A) 14.5 k/uL (1.3-7.7); Neutrophils % (A) 87 %; Platelet Count 143 k/uL (150-450); RBC 2.74 m/uL (4.30-5.90); RDW 14.5 % (11.5-15.5); WBC 16.6 k/uL (3.8-10.6)
[2020-01-26 08:51] LABS: Calcium 8.6 mg/dL (8.4-10.2); Potassium 5.2 mmol/L (3.5-5.1)
--- NOTE | 2020-01-26 09:19 | P.PN ---
Subjective This is a pleasant 69 years old male who presents with left pleural effusion and pneumonia and legs cellulitis. He is end-stage renal disease on hemodialysis he was not followed up appropriately with his dialysis therapy. Also has blood culture was positive for staph aureus. Patient is currently he's undergoing hemodialysis per nephrology recommendations, as well as he is on IV Levaquin and renal dose as well as IV vancomycin pharmacy to dose. Repeat blood cultures been negative. This morning is still looks tired however he is appropriate to question regarding his current medical problem however he thinks he is at his home. He feels generally weak. He breathes quietly on chair and his legs are in dressing Resector to 90s on 3 L oxygen for nasal cannula. Pulmonary service are planning for thoracocentesis for history of pleural effusion. Infectious disease and vascular surgery team were consulted for his antibiotic therapy and for his cellulitis rule out any vascular causes. Echocardiogram is pending. CONSTITUTIONAL: No fever, no malaise, no fatigue. HEENT: No recent visual problems or hearing problems. Denied any sore throat. CARDIOVASCULAR: No orthopnea, PND, no palpitations, no syncope. PULMONARY: No shortness of breath, no cough, no hemoptysis. GASTROINTESTINAL: No diarrhea, no nausea, no vomiting, no abdominal pain. Normoactive bowel sounds. NEUROLOGICAL: No headaches, no weakness, no numbness. Active Medications Generic Name Dose Route Start Last Admin Trade Name Freq PRN Reason Stop Dose Admin Acetaminophen 650 mg 01/24/20 14:24 01/26/20 06:45 Acetaminophen Tab 325 Mg Tab PO 650 mg Q6HR PRN Administration Mild Pain or Fever > 100.5 Hydrocodone Bitart/Acetaminophen 1 each 01/24/20 21:25 01/25/20 21:01 Hydrocodone/Apap 5-325mg 1 Each Tab PO 1 each Q6HR PRN Administration Pain Alprazolam 0.25 mg 01/24/20 21:21 01/25/20 08:23 Alprazolam 0.25 Mg Tab PO 0.25 mg TID PRN Administration anxiety Aspirin 81 mg 01/25/20 09:00 01/25/20 08:23 Aspirin 81 Mg PO 81 mg DAILY HAYDER Administration Ca Carbonate/Folic Ac/Mg Carbonate 3 each 01/25/20 07:30 01/26/20 06:45 Calcium Carb-Mag Carb-Folic 1 Each Tab PO 3 each BID-W/MEALS HAYDER Administration Calcium Acetate 667 mg 01/24/20 17:58 Calcium Acetate 667 Mg Tab PO DAILY PRN with snack Calcium Acetate 2,001 mg 01/25/20 07:30 01/26/20 06:45 Calcium Acetate 667 Mg Tab PO 2,001 mg TID-W/MEALS HAYDER Administration Famotidine 20 mg 01/24/20 21:00 01/25/20 21:01 Famotidine 20 Mg Tab PO 20 mg HS HAYDER Administration Fenofibrate 160 mg 01/24/20 22:00 01/25/20 21:02 Fenofibrate 160 Mg Tab PO 160 mg HS HAYDER Administration Furosemide 40 mg 01/24/20 21:00 01/25/20 21:02 Furosemide 40 Mg Tab PO 40 mg BID HAYDER Administration Heparin Sodium (Porcine) 5,000 unit 01/25/20 09:00 01/25/20 21:02 Heparin Sodium,Porcine 5,000 Unit/Ml 1 Ml Vial SQ 5,000 unit Q12HR HAYDER Administration Hydromorphone HCl 0.5 mg 01/24/20 21:25 01/26/20 06:46 Hydromorphone 0.5 Mg/0.5 Ml Syringe IVP 0.5 mg Q6HR PRN Administration Severe Pain Sodium Chloride 1,000 mls @ 130 mls/hr 01/24/20 11:30 01/26/20 01:53 Saline 0.9% IV 130 mls/hr .[id number] HAYDER Administration Levofloxacin/Dextrose 250 mg/ 50 mls @ 50 mls/hr 01/26/20 14:00 IV Solution IVPB Q48H [facility] Insulin Aspart 0 unit 01/24/20 21:00 01/26/20 06:46 Insulin Aspart (Novolog) 100 Unit/Ml Vial SQ 6 unit ACHS HAYDER Administration Protocol Levocarnitine 330 mg 01/25/20 07:30 01/26/20 06:47 Levocarnitine (With Sugar) 100 Mg/Ml Bottle PO 330 mg TID-W/MEALS HAYDER Administration Metoprolol Tartrate 25 mg 01/25/20 21:00 01/25/20 21:03 Metoprolol Tartrate 25 Mg Tab PO Not Given BID HAYDER Midodrine 10 mg 01/24/20 16:16 01/25/20 21:01 Midodrine 5 Mg Tab PO 10 mg AC-TID PRN Administration Hypotension Miscellaneous Information 1 each 01/25/20 15:24 Vancomycin Iv Per Pharmacy 1 Each Misc MISCELLANE DIRECTED PRN Per Protocol Protocol Multivit/Ca Carb/B Cmplx/FA/Prenat 1 each 01/25/20 09:00 01/25/20 08:41 Folic Acid-Vit B Complex-Vit C 1 Cap PO 1 each DAILY HAYDER Administration Multivitamins/Minerals 1 each 01/25/20 09:00 01/25/20 08:41 Vit A,C & O-Tuzckw-Rrrdjcnj 1 Each Tab PO 1 each DAILY HAYDER Administration Naloxone HCl 0.2 mg 01/24/20 14:24 Naloxone 0.4 Mg/Ml 1 Ml Vial IV Q2M PRN Opioid Reversal Ondansetron HCl 4 mg 01/24/20 18:07 Ondansetron 4 Mg Tab PO Q6HR PRN Nausea And Vomiting Pantoprazole Sodium 40 mg 01/25/20 07:30 01/26/20 06:45 Pantoprazole 40 Mg Tablet PO 40 mg 0730 HAYDER Administration Temazepam 15 mg 01/24/20 21:25 Temazepam 15 Mg Cap PO HS PRN Insomnia Objective - Vital Signs Vital signs: Vital Signs Temp 97.8 F 01/26/20 04:00 Pulse 91 01/26/20 04:00 Resp 18 01/26/20 04:00 BP 90/50 01/26/20 04:00 Pulse Ox 97 01/26/20 04:00 Intake & Output 01/25/20 01/26/20 01/26/20 18:59 06:59 18:59 Intake Total 600 750 Output Total 0 Balance 600 750 Weight 112.5 kg 104.145 kg Intake: Oral 600 750 Output: Urine 0 Stool 0 Other: Voiding Method Incontinent Incontinent # Voids 0 1 # Bowel Movements 1 - Exam -GENERAL: The patient is alert and oriented x1-2, not in any acute distress. Well developed, well nourished. Generally weak HEENT: Pupils are round and equally reacting to light. EOMI. No scleral icterus. No conjunctival pallor. Normocephalic, atraumatic. No pharyngeal erythema. No thyromegaly. CARDIOVASCULAR: S1 and S2 present. No murmurs, rubs, or gallops. -PULMONARY: Chest is clear to auscultation, no wheezing or crackles. Decreased breath sounds especially on the left side ABDOMEN: Soft, nontender, nondistended, normoactive bowel sounds. No palpable organomegaly. MUSCULOSKELETAL: No joint swelling or deformity. -EXTREMITIES: No cyanosis, clubbing, or pedal edema. Bilateral leg cellulitis, and a dressing NEUROLOGICAL: Gross neurological examination did not reveal any focal deficits. SKIN: No rashes. No petechiae - Labs CBC & Chem 7: 01/26/20 08:03 01/26/20 08:03 Labs: Abnormal Lab Results - Last 24 Hours (Table) 01/25/20 01/25/20 01/25/20 Range/Units 11:36 16:30 20:00 WBC (3.8-10.6) k/uL RBC (4.30-5.90) m/uL Hgb (13.0-17.5) gm/dL Hct (39.0-53.0) % MCV (80.0-100.0) fL MCHC (31.0-37.0) g/dL Plt Count (150-450) k/uL Neutrophils # (1.3-7.7) k/uL Sodium (137-145) mmol/L Potassium (3.5-5.1) mmol/L BUN (9-20) mg/dL Creatinine (0.66-1.25) mg/dL Glucose (74-99) mg/dL POC Glucose (mg/dL) 197 H 217 H 194 H (75-99) mg/dL 01/26/20 01/26/20 01/26/20 Range/Units 06:25 08:03 08:03 WBC 16.6 H (3.8-10.6) k/uL RBC 2.74 L (4.30-5.90) m/uL Hgb 9.1 L (13.0-17.5) gm/dL Hct 29.4 L (39.0-53.0) % MCV 107.4 H (80.0-100.0) fL MCHC 30.9 L (31.0-37.0) g/dL Plt Count 143 L (150-450) k/uL Neutrophils # 14.5 H (1.3-7.7) k/uL Sodium 134 L (137-145) mmol/L Potassium 5.2 H (3.5-5.1) mmol/L BUN 67 H (9-20) mg/dL Creatinine 6.63 H (0.66-1.25) mg/dL Glucose 231 H (74-99) mg/dL POC Glucose (mg/dL) 273 H (75-99) mg/dL Microbiology - Last 24 Hours (Table) 01/25/20 15:49 Blood Culture Gram Stain - Preliminary Blood 01/25/20 15:49 Blood Culture - Final Blood 01/24/20 11:52 Blood Culture Gram Stain - Preliminary Blood Blood Culture - Preliminary Staphylococcus aureus Assessment and Plan Assessment: Large left pleural effusion and pneumonia Bilateral leg cellulitis End-stage renal disease on hemodialysis Noncompliance with his dialysis therapy positive blood culture with staph, bacteremia Plan: This is a pleasant 69 years old male with end-stage renal disease on HD, presents with bilateral axillae days and left pleural effusion with possible staff and the blood culture. Continue with Levaquin and IV vancomycin pharmacy to dose. Pulmonary and nephrology service R following the case. Infectious disease and vascular surgery were consulted. Continue with aspirin. Follow-up WBC and platelet count as well as blood pressure Labs and medication were reviewed.. Continue same treatment. Continue with symptomatic treatment. Resume home medication. Monitor lytes and vitals. DVT and GI prophylaxis. Further recommendationsas per clinical course of the patient DVT prophylaxis: Subcutaneous heparin GI Prophylaxis: Ppi PT/OT: Pending Prognosis is guarded
[2020-01-26] MEDS: MIDODRINE 5 MG TAB PO PRN ×2 (10:47→20:28)
[2020-01-26] MEDS: FUROSEMIDE 40 MG TAB PO SCH ×2 (10:47→20:28)
[2020-01-26] MEDS: ASPIRIN 81 MG PO SCH (10:47)
[2020-01-26] MEDS: METOPROLOL TARTRATE 25 MG TAB PO SCH ×2 (10:47→20:28)
[2020-01-26] MEDS: HEPARIN SODIUM,PORCINE 5,000 UNIT/ML 1 ML VIAL SQ SCH ×3 (10:47→20:29)
[2020-01-26] MEDS: VIT A,C & E-LUTEIN-MINERALS 1 EACH TAB PO SCH (10:48)
[2020-01-26] MEDS: FOLIC ACID-VIT B COMPLEX-VIT C 1 CAP PO SCH (10:48)
[2020-01-26 11:37] LABS: Glucose,Whole Blood 186 mg/dL (75-99)
--- NOTE | 2020-01-26 12:00 | ECHOF ---
Referral Reason:staph sepsis MEASUREMENTS -------- HEIGHT: 182.9 cm WEIGHT: 103.9 kg BP: RVIDd: 3.2 cm (< 3.3) IVSd: 1.1 cm (0.6 - 1.1) LVIDd: 4.4 cm (3.9 - 5.3) LVPWd: 1.2 cm (0.6 - 1.1) IVSs: 1.5 cm LVIDs: 4.1 cm LVPWs: 1.5 cm Ao Diam: 2.8 cm (2.0 - 3.7) AV Cusp: 2.0 cm (1.5 - 2.6) LA Diam: 5.0 cm (2.7 - 3.8) MV EXCURSION: 17.304 mm (> 18.000) MV EF SLOPE: 80 mm/s (70 - 150) EPSS: 1.1 cm MV E Malvin: 0.47 m/s MV DecT: 121 ms MV A Malvin: 0.34 m/s MV E/A Ratio: 1.35 RAP: 5.00 mmHg RVSP: 12.30 mmHg FINDINGS -------- Sinus rhythm. The left ventricular size is normal. There is mild concentric left ventricular hypertrophy. Overa ll left ventricular systolic function is mild-moderately impaired with, an EF between 40 - 45 %. [place] teral hypokinesis Posterior hypokinesis Anterior Hypokinesis The right ventricle is normal in size. The left atrium is moderately dilated. The right atrial size is normal. There is mild aortic valve sclerosis. There is no evidence of aortic regurgitation. Mild mitral annular calcification present. Mild mitral regurgitation is present. Mild tricuspid regurgitation present. Right ventricular systolic pressure is normal at < 35 mmHg. There is no pulmonic regurgitation present. The aortic root size is normal. There is no pericardial effusion. Large Pleural Effusion. CONCLUSIONS -------- 1. The left ventricular size is normal. 2. There is mild concentric left ventricular hypertrophy. 3. Overall left ventricular systolic function is mild-moderately impaired with, an EF between 40 - 45 %. 4. Lateral hypokinesis 5. Posterior hypokinesis 6. Anterior Hypokinesis 7. The right ventricle is normal in size. 8. The left atrium is moderately dilated. 9. The right atrial size is normal. 10. There is mild aortic valve sclerosis. 11. Mild mitral annular calcification present. 12. Mild mitral regurgitation is present. 13. Mild tricuspid regurgitation present. 14. There is no pulmonic regurgitation present. 15. The aortic root size is normal. 16. There is no pericardial effusion. 17. Large Pleural Effusion. ENGINE BOSS: Jami Salmeron RDCS
--- NOTE | 2020-01-26 12:13 | P.CONS ---
History of Present Illness - Reason for Consult Consult date: 01/26/20 Wound care - History of Present Illness This is a 69-year-old patient known to the wound care center who is being seen on 3 S. by wound care for nonhealing ulcerations to the right lateral plantar, left second toe, left third toe, and right great toe. Patient has been utilizing collagen silver and tolerating dressings without any difficulties. Patient has history of diabetes end-stage renal failure with dialysis. Review of Systems Review Of Systems: Constitutional: No fever, no chills, no night sweats. No weight change. No weakness, fatigue or lethargy. No daytime sleepiness. Integumentary:reports wounds, no lesions. No rash or pruritus. No unusual bruising. No change in hair or nails. Past Medical History Past Medical History: Atrial Fibrillation, Asthma, Heart Failure, Diabetes Mellitus, Dialysis, Eye Disorder, GERD/Reflux, Hypertension, Osteoarthritis (OA), Pneumonia, Renal Disease, Respiratory Disorder, Rheumatoid Arthritis (RA), Seizure Disorder Additional Past Medical History / Comment(s): ESRD with hemodialysis, mineral bone disease, chronic anemia, IDDM type II, diabetic retinopathy-"legally blind", chronic neuropathy in toes/bilateral feet and left leg, bilateral lower leg edema, cellulitis bilateral lower legs, bilateral leg/foot wounds/sees Dr. 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 Past Anesthesia/Blood Transfusion Reactions: No Reported Reaction Additional Past Anesthesia/Blood Transfusion Reaction / Comm: Pt received blood in past without reaction. Smoking Status: Former smoker - Past Family History Mother Family Medical History: Diabetes Mellitus Father Family Medical History: Cancer Additional Family Medical History / Comment(s): Metastatic cancer. Pt cannot recall primary. Medications and Allergies Home Medications Medication Instructions Recorded Confirmed Type Etanercept [Enbrel] 50 mg SQ LUU 06/12/14 01/24/20 History NIFEdipine [NIFEdipine ER] 60 mg PO DAILY 06/12/14 01/24/20 History Aspirin EC [Ecotrin Low Dose] 81 mg PO DAILY 07/31/18 01/24/20 History gemfibroziL [Lopid] 600 mg PO BID 07/31/18 01/24/20 History Calcium Acetate [PhosLo] 2,001 mg PO TID-W/MEALS 02/26/19 01/24/20 History Magnebind 250/300mg 3 tab PO BID-W/MEALS 02/26/19 01/24/20 History Metoprolol Tartrate [Lopressor] 50 mg PO BID 02/26/19 01/24/20 History Omeprazole 40 mg PO DAILY 02/26/19 01/24/20 History Prorenal + D 1 tab PO DAILY 02/26/19 01/24/20 History levOCARNitine [Levocarnitine] 330 mg PO TID-W/MEALS 06/27/19 01/24/20 History Calcium Acetate [PhosLo] 667 mg PO DAILY PRN 08/20/19 01/24/20 History Furosemide [Lasix] 40 mg PO BID 08/20/19 01/24/20 History Vit C/E/Zn/Coppr/Lutein/Zeaxan 1 cap PO DAILY 08/20/19 01/24/20 History [Preservision Areds 2 Softgel] Acetaminophen Tab [Tylenol] 650 mg PO Q6HR PRN tab 11/10/19 01/24/20 Rx ALPRAZolam [Xanax] 0.25 mg PO TID PRN 3 Days #9 tab 11/11/19 01/24/20 Rx INSULIN ASPART (NovoLOG) [NovoLOG See Protocol SQ ACHS 01/24/20 01/24/20 History (formulary)] Allergies Allergy/AdvReac Type Severity Reaction Status Date / Time sulfamethoxazole AdvReac Unknown Nausea & Verified 01/24/20 17:03 [From Bactrim] Vomiting trimethoprim [From Bactrim] AdvReac Unknown Nausea & Verified 01/24/20 17:03 Vomiting Physical Exam Vitals: Vital Signs Temp Pulse Resp BP Pulse Ox 01/26/20 08:00 78 18 78/44 94 L 01/26/20 04:00 97.8 F 91 18 90/50 97 01/26/20 00:00 98.2 F 94 18 100/55 94 L 01/25/20 20:00 97.6 F 59 L 18 80/47 92 L 01/25/20 18:23 64 16 91/53 95 01/25/20 17:38 80/49 01/25/20 17:15 80/40 01/25/20 17:00 74/48 01/25/20 16:45 62/38 01/25/20 15:39 98.4 F 99 18 84/42 99 01/25/20 13:32 80 16 85/49 99 01/25/20 12:19 70 18 91/55 99 Intake and Output 01/25/20 01/26/20 01/26/20 22:59 06:59 14:59 Intake Total 180 750 Output Total 0 Balance 180 750 Intake: Oral 180 750 Output: Urine 0 Stool 0 Other: Voiding Method Incontinent Incontinent Incontinent # Voids 0 1 Weight 104.145 kg Physical exam: General Appearance: Alert, cooperative, no distress, appears stated age. The wound is currently classified as a Grade 4 wound with etiology of Diabetic Wound/Ulcer of the Lower Extremity and is located on the Right,Lateral,Plantar Foot. The wound measures 8.8cm length x 1.5cm width x 0.4cm depth; 10.367cm^2 area and 4.147cm^3 volume. There is Fat Layer (Subcutaneous Tissue) Exposed exposed. There is no tunneling or undermining noted. There is a small amount of serous drainage noted. The wound margin is thickened. There is large (67-100%) red, pink granulation within the wound bed. There is a small (1-33%) amount of necrotic tissue within the wound bed including Adherent Slough. The periwound skin appearance had no abnormalities noted for texture. The periwound skin appearance exhibited: Maceration. The periwound skin appearance did not exhibit: Dry/Scaly, Atrophie [place], Cyanosis, Ecchymosis, Hemosiderin Staining, Mottled, Pallor, Rubor, Erythema. Periwound temperature was noted as No Abnormality. The periwound has tenderness on palpation. The wound is currently classified as a Grade 2 wound with etiology of Diabetic Wound/Ulcer of the Lower Extremity and is located on the Left Toe Second. The wound measures 1.2cm length x 0.5cm width x 0.1cm depth; 0.471cm^2 area and 0.047cm^3 volume. There is no tunneling or undermining noted. There is a medium amount of serous drainage noted. The wound margin is indistinct and nonvisible. There is small (1-33%) pink granulation within the wound bed. There is a large (67-100%) amount of necrotic tissue within the wound bed including Adherent Slough. The periwound skin appearance exhibited: Maceration. The periwound skin appearance did not exhibit: Callus, Crepitus, Excoriation, Induration, Scarring, Dry/Scaly, Atrophie [place], Cyanosis, Ecchymosis, Hemosiderin Staining, Mottled, Pallor, Rubor, Erythema. The wound is currently classified as a Grade 2 wound with etiology of Diabetic Wound/Ulcer of the Lower Extremity and is located on the Left Toe Third. The wound measures 1.4cm length x 0.9cm width x 0.1cm depth; 0.99cm^2 area and 0.099cm^3 volume. There is no tunneling or undermining noted. There is a small amount of serous drainage noted. The wound margin is flat and intact. There is small (1-33%) pink granulation within the wound bed. There is a large (67-100%) amount of necrotic tissue within the wound bed including Adherent Slough. The periwound skin appearance exhibited: Dry/Scaly, Erythema. The periwound skin appearance did not exhibit: Callus, Crepitus, Excoriation, Induration, Rash, Scarring, Maceration, Atrophie [place], Cyanosis, Ecchymosis, Hemosiderin Stain ing, Mottled, Pallor, Rubor. The surrounding wound skin color is noted with erythema which is circumferential. Periwound temperature was noted as No Abnormality. The periwound has tenderness on palpation. The wound is currently classified as a Grade 2 wound with etiology of Diabetic Wound/Ulcer of the Lower Extremity and is located on the Right Toe Great. The wound measures 0.7cm length x 0.9cm width x 0.1cm depth; 0.495cm^2 area and 0.049cm^3 volume. The wound is limited to skin breakdown. There is no tunneling or undermining noted. There is a small amount of serous drainage noted. The wound margin is indistinct and nonvisible. There is large (67-100%) pink granulation within the wound bed. There is a small (1-33%) amount of necrotic tissue within the wound bed including Adherent Slough. The periwound skin appearance had no abnormalities noted for texture. The periwound skin appearance had no abnormalities noted for moisture. The periwound skin appearance had no abnormalities noted for color. Periwound temperature was noted as No Abnormality. all other Skin color, pale texture, tugor decrease no rashes or lesions. Neurologic: Alert oriented x3 Results CBC & Chem 7: 01/26/20 08:03 01/26/20 08:03 Labs: Abnormal Lab Results - Last 24 Hours (Table) 01/25/20 01/25/20 01/26/20 Range/Units 16:30 20:00 06:25 WBC (3.8-10.6) k/uL RBC (4.30-5.90) m/uL Hgb (13.0-17.5) gm/dL Hct (39.0-53.0) % MCV (80.0-100.0) fL MCHC (31.0-37.0) g/dL Plt Count (150-450) k/uL Neutrophils # (1.3-7.7) k/uL Sodium (137-145) mmol/L Potassium (3.5-5.1) mmol/L BUN (9-20) mg/dL Creatinine (0.66-1.25) mg/dL Glucose (74-99) mg/dL POC Glucose (mg/dL) 217 H 194 H 273 H (75-99) mg/dL 01/26/20 01/26/20 01/26/20 Range/Units 08:03 08:03 11:35 WBC 16.6 H (3.8-10.6) k/uL RBC 2.74 L (4.30-5.90) m/uL Hgb 9.1 L (13.0-17.5) gm/dL Hct 29.4 L (39.0-53.0) % MCV 107.4 H (80.0-100.0) fL MCHC 30.9 L (31.0-37.0) g/dL Plt Count 143 L (150-450) k/uL Neutrophils # 14.5 H (1.3-7.7) k/uL Sodium 134 L (137-145) mmol/L Potassium 5.2 H (3.5-5.1) mmol/L BUN 67 H (9-20) mg/dL Creatinine 6.63 H (0.66-1.25) mg/dL Glucose 231 H (74-99) mg/dL POC Glucose (mg/dL) 186 H (75-99) mg/dL Microbiology - Last 24 Hours (Table) 01/25/20 15:49 Blood Culture Gram Stain - Preliminary Blood 01/25/20 15:49 Blood Culture - Final Blood 01/24/20 11:52 Blood Culture Gram Stain - Preliminary Blood Blood Culture - Preliminary Staphylococcus aureus Assessment and Plan (1) Pressure ulcer of right foot, stage 2 Current Visit: Yes Status: Acute Code(s): L89.892 - PRESSURE ULCER OF OTHER SITE, STAGE 2 SNOMED Code(s): 504581501 (2) Diabetic foot ulcer associated with type 2 diabetes mellitus Current Visit: No Status: Acute Code(s): E11.621 - TYPE 2 DIABETES MELLITUS WITH FOOT ULCER SNOMED Code(s): 8371874797892 (3) Pressure ulcer of left foot, stage 3 Current Visit: No Status: Acute Code(s): L89.893 - PRESSURE ULCER OF OTHER SITE, STAGE 3 SNOMED Code(s): 805501988 Plan: Apply collagen silver, saline moistened gauze, dry gauze, and rolled gauze secured paper tape and wrap with Lg wrap. Change Sunday. Patient will continue with wound wound care visit next 02/05/2020 at 10:30. Thank you, for the consultation any questions was contacted wound care center DNP note has been reviewed and discussed with Dr. Messina and the impression and plan of care has been directed as dictated.
[2020-01-26] MEDS ORDERED: SODIUM CHLORIDE 0.9% 500 ML 250 ML IV ONE (12:24)
[2020-01-26] MEDS ORDERED: MIDODRINE 5 MG TAB PO STA (12:24)
--- NOTE | 2020-01-26 13:19 | P.PN ---
Subjective Progress Note Date: 01/26/20 Principal diagnosis: Fever, pleural effusion This is a 69-year-old gentleman with a history of multiple medical problems including end-stage renal disease on hemodialysis, chronic atrial fibrillation, chronic congestive heart failure, diabetes mellitus type 2, chronic bronchial asthma, hypertension, osteoarthritis, rheumatoid arthritis, seizure disorder. In addition patient has a history of chronic diabetic wounds involving his lower extremities, with history of MRSA infections and bacteremia with history of mitral valve endocarditis. Patient also had a history of vancomycin-resistant enterococcal infection. We have previously seen the patient in consultation before for left pleural effusion which is chronic for this patient, patient has had left sided thoracentesis in the past by our group, and interventional radiology. In the fluid was exudative, with negative cytology. Patient came to the hospital on 01/23/2020 for evaluation of fever for 2 days prior to a dmission, weakness, dehydration and pain and in the left side of his lateral and lower chest area. His chest x-ray showed large left pleural effusion, ultrasound and the chest showed 13.4 cm pleural effusion pocket. Clinically patient looks to be in no distress, he is on 3 L of oxygen and pulse ox of 95%. Patient is chronically hypotensive, spoke to the nephrology, was very familiar with the patient. Patient supposed to have hemodialysis treatment today. He was started on Levaquin and vancomycin. His COVID 19 PCR is pending, his blood cultures from 9 01/24/2020 showed a Staphylococcus aureus, his repeat blood culture from 01/25/2020 showed gram-positive cocci in clusters. ID service is following, nephrology is following, Dr. Arguelles was consulted for her chronic foot ulcers, patient had amputation of right fifth digit on his right foot, and there are open areas, x-ray of the right foot showed no acute bony abnormality, no specific sign of osteomyelitis. Objective - Vital Signs Vital signs: Vital Signs Temp 97.8 F 01/26/20 04:00 Pulse 91 01/26/20 12:00 Resp 18 01/26/20 12:00 BP 78/48 01/26/20 12:00 Pulse Ox 95 01/26/20 12:00 Intake & Output 01/25/20 01/26/20 01/26/20 18:59 06:59 18:59 Intake Total 600 750 Output Total 0 Balance 600 750 Weight 112.5 kg 104.145 kg Intake: Oral 600 750 Output: Urine 0 Stool 0 Other: Voiding Method Incontinent Incontinent Incontinent # Voids 0 1 # Bowel Movements 1 - Exam GENERAL EXAM: Lethargic, 69-year-old white female, in the recliner, heart rate is approximately plus at 95% comfortable in no apparent distress. HEAD: Normocephalic/atraumatic. EYES: Normal reaction of pupils, equal size. Conjunctiva pink, sclera white. NOSE: Clear with pink turbinates. THROAT: No erythema or exudates. NECK: No masses, no JVD, no thyroid enlargement, no adenopathy. CHEST: No chest wall deformity. Symmetrical expansion. LUNGS: Diminished air entry over left lung, some crackles at the right lower base CVS: Regular rate and rhythm, normal S1 and S2, no gallops, no murmurs, no rubs ABDOMEN: Soft, nontender. No hepatosplenomegaly, normal bowel sounds, no guarding or rigidity. EXTREMITIES: No clubbing, very mild pretibial no cyanosis, 2+ pulses and upper and lower extremities. MUSCULOSKELETAL: Muscle strength and tone normal. SPINE: No scoliosis or deformity SKIN: Patient has chronic wounds on bilateral lower extremities, mostly dry scabbed over, nondraining wounds on the bilateral shins, patient has an amputated fifth metatarsal, with some open areas surrounding the amputation site CENTRAL NERVOUS SYSTEM: Lethargic but arousable No focal deficits, tone is normal in all 4 extremities. - Labs CBC & Chem 7: 01/26/20 08:03 01/26/20 08:03 Labs: Abnormal Lab Results - Last 24 Hours (Table) 01/25/20 01/25/20 01/26/20 Range/Units 16:30 20:00 06:25 WBC (3.8-10.6) k/uL RBC (4.30-5.90) m/uL Hgb (13.0-17.5) gm/dL Hct (39.0-53.0) % MCV (80.0-100.0) fL MCHC (31.0-37.0) g/dL Plt Count (150-450) k/uL Neutrophils # (1.3-7.7) k/uL Sodium (137-145) mmol/L Potassium (3.5-5.1) mmol/L BUN (9-20) mg/dL Creatinine (0.66-1.25) mg/dL Glucose (74-99) mg/dL POC Glucose (mg/dL) 217 H 194 H 273 H (75-99) mg/dL 01/26/20 01/26/20 01/26/20 Range/Units 08:03 08:03 11:35 WBC 16.6 H (3.8-10.6) k/uL RBC 2.74 L (4.30-5.90) m/uL Hgb 9.1 L (13.0-17.5) gm/dL Hct 29.4 L (39.0-53.0) % MCV 107.4 H (80.0-100.0) fL MCHC 30.9 L (31.0-37.0) g/dL Plt Count 143 L (150-450) k/uL Neutrophils # 14.5 H (1.3-7.7) k/uL Sodium 134 L (137-145) mmol/L Potassium 5.2 H (3.5-5.1) mmol/L BUN 67 H (9-20) mg/dL Creatinine 6.63 H (0.66-1.25) mg/dL Glucose 231 H (74-99) mg/dL POC Glucose (mg/dL) 186 H (75-99) mg/dL Microbiology - Last 24 Hours (Table) 01/25/20 15:49 Blood Culture Gram Stain - Preliminary Blood 01/25/20 15:49 Blood Culture - Final Blood 01/24/20 11:52 Blood Culture Gram Stain - Preliminary Blood Blood Culture - Preliminary Staphylococcus aureus Assessment and Plan Plan: Assessment: #1. Left-sided chest discomfort likely related to large left-sided pleural effusion, ultrasound and chest showing 13.4 cm pocket of fluid on the left side, which is somewhat chronic for this patient, with previous history of left-sided thoracentesis with exudative fluid negative cultures, and negative cytology #2. Staphylococcus aureus bacteremia, currently on Levaquin and vancomycin #3. Bilateral leg cellulitis #4. End-stage renal disease on hemodialysis on Sunday and Sunday schedule #5. Confusion, altered mental status related to metabolic encephalopathy #6. History of chronic osteomyelitis of the right fifth metatarsal, diabetic plantar wounds, nonhealing, status post right amputation of the right fifth toe/metatarsal in November 2019 #7. History of MRSA and VRE bacteremia, with history of endocarditis #8. Diabetes mellitus with diabetic retinopathy and neuropathy #9. History of pneumonia #10. History of rheumatoid arthritis #11. Seizure disorder #12. Multiple other medical problems and comorbidities Plan: We will plan on left-sided thoracentesis this afternoon, hold anticoagulation. Continue antibiotics, there are multiple consultants on the case. ID service on the case, patient is on combination of Levaquin and vancomycin. We will send the pleural fluid for analysis. We'll continue to follow I performed a history & physical examination of the patient and discussed their management with my nurse practitioner, Raven Arias. I reviewed the nurse practitioner's note and agree with the documented findings and plan of care. Lung sounds are positive for diminished breath sounds. The findings and the impression was discussed with the patient. I attest to the documentation by the nurse practitioner. Time with Patient: Less than 30
[2020-01-26] MEDS ORDERED: LEVOFLOXACIN 250MG-D5W PMX 250 MG in DEXTROSE/WATER 1 50ML.BAG IVPB SCH (14:00)
--- NOTE | 2020-01-26 14:03 | PN ---
PROGRESS NOTE Patient is seen for followup for end-stage renal disease. He was admitted to the hospital with complaints of increased weakness. Patient was noted to have persistent bacteremia with blood cultures growing Staph aureus on 01/24/2020 as well as on 01/25/2020. Patient recently had a PermCath placed due to continued bleeding from his AV fistula site. He also has chronic lower extremity wounds with ulcers. He has had previous MRSA foot infections and a remote history of endocarditis is also documented, although it is unclear as to when patient had the endocarditis. This morning he is sitting up. He is not in acute distress. Blood pressure remains on the lower side with systolic 100-90 mmHg. The patient denies any significant complaints. Heart rate 63 per minute, he is afebrile. Examination of the heart S1, S2. Examination lower extremities shows much decreased edema. Chronic skin changes. There is an ulcer noted on the right foot plantar aspect. MANAGER [employer] exam grossly intact. LABS: Show hemoglobin 9.1, sodium 134, potassium 5.2, BUN 67, serum creatinine 6.63, calcium 8.6. ASSESSMENT: 1. End-stage renal disease, on hemodialysis Sunday, Sunday, Sunday schedule, currently being dialyzed via IJ PermCath which was recently placed about 2-3 weeks ago secondary to persistent bleeding from his AV fistula in the right arm. Patient was supposed to have further workup on his fistula as outpatient. 2. E bacteremia related to either the PermCath or his foot wound. Even if it is not the PermCath, it will get secondarily seeded. Therefore, I will discontinue the PermCath after dialysis today as his blood cultures are positive from 01/23 and 01/25/2020. 3. Anemia of chronic disease. 4. History of rheumatoid arthritis, maintained on Enbrel which will need to be held off. 5. CKD mineral bone disorder, maintained on PhosLo. PLAN: 1. Discontinue dialysis catheter post hemodialysis today and then we will consult Vascular Surgery for further plans on his access once his catheter is discontinued. Continue to maintain antibiotics. Echocardiogram was done to evaluate for possible endocarditis. MMODL / IJN: [id number] / FELIPE
--- NOTE | 2020-01-26 14:25 | P.GSCN ---
History of Present Illness History of present illness: 69-year-old gentleman, patient has been admitted admitted with history of acute chronic renal failure patient has a positive blood culture and I was consulted for removal of dialysis catheter patient also has history of endocrine diabetes in the past patient having dialysis through the right IJ 3 times a week patient also has a fistula in the left upper arm. He has history of recurrent bleeding Plan is patient is having dialysis we will remove the dialysis catheter follow with you thank you Past Medical History Past Medical History: Atrial Fibrillation, Asthma, Heart Failure, Diabetes Mellitus, Dialysis, Eye Disorder, GERD/Reflux, Hypertension, Osteoarthritis (OA), Pneumonia, Renal Disease, Respiratory Disorder, Rheumatoid Arthritis (RA), Seizure Disorder Additional Past Medical History / Comment(s): ESRD with hemodialysis, mineral bone disease, chronic anemia, IDDM type II, diabetic retinopathy-"legally blind ", chronic neuropathy in toes/bilateral feet and left leg, bilateral lower leg edema, cellulitis bilateral lower legs, bilateral leg/foot wounds/sees Dr. Scales in [facility], chronic L pleural effusion with thoracentesises, gait dysfunction, paroxysmal Afib, 2013 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 History of Any Multi-Drug Resistant Organisms: MRSA, VRE Year Discovered:: 11/08/19 MDRO Source:: TOE VRE MRSA Past Surgical History: Hernia Repair, Orthopedic Surgery Additional Past Surgical History / Comment(s): Bilateral cataract surgery, i nsertion dialysis catheter left arm then had a procedure done to dialysis catheter at [facility]-cannot recall exactly what was done, PICC line insertion/removed, bilateral inguinal hernina repairs, colonoscopy/polypectomy, R shoulder rotator cuff repair, debridements bilateral feet. Past Anesthesia/Blood Transfusion Reactions: No Reported Reaction Additional Past Anesthesia/Blood Transfusion Reaction / Comm: Pt received blood in past without reaction. Smoking Status: Former smoker - Past Family History Mother Family Medical History: Diabetes Mellitus Father Family Medical History: Cancer Additional Family Medical History / Comment(s): Metastatic cancer. Pt cannot recall primary. Medications and Allergies Home Medications Medication Instructions Recorded Confirmed Type Etanercept [Enbrel] 50 mg SQ LUU 06/12/14 01/24/20 History NIFEdipine [NIFEdipine ER] 60 mg PO DAILY 06/12/14 01/24/20 History Aspirin EC [Ecotrin Low Dose] 81 mg PO DAILY 07/31/18 01/24/20 History gemfibroziL [Lopid] 600 mg PO BID 07/31/18 01/24/20 History Calcium Acetate [PhosLo] 2,001 mg PO TID-W/MEALS 02/26/19 01/24/20 History Magnebind 250/300mg 3 tab PO BID-W/MEALS 02/26/19 01/24/20 History Metoprolol Tartrate [Lopressor] 50 mg PO BID 02/26/19 01/24/20 History Omeprazole 40 mg PO DAILY 02/26/19 01/24/20 History Prorenal + D 1 tab PO DAILY 02/26/19 01/24/20 History levOCARNitine [Levocarnitine] 330 mg PO TID-W/MEALS 06/27/19 01/24/20 History Calcium Acetate [PhosLo] 667 mg PO DAILY PRN 08/20/19 01/24/20 History Furosemide [Lasix] 40 mg PO BID 08/20/19 01/24/20 History Vit C/E/Zn/Coppr/Lutein/Zeaxan 1 cap PO DAILY 08/20/19 01/24/20 History [Preservision Areds 2 Softgel] Acetaminophen Tab [Tylenol] 650 mg PO Q6HR PRN tab 11/10/19 01/24/20 Rx ALPRAZolam [Xanax] 0.25 mg PO TID PRN 3 Days #9 tab 11/11/19 01/24/20 Rx INSULIN ASPART (NovoLOG) [NovoLOG See Protocol SQ ACHS 01/24/20 01/24/20 History (formulary)] Allergies Allergy/AdvReac Type Severity Reaction Status Date / Time sulfamethoxazole AdvReac Unknown Nausea & Verified 01/24/20 17:03 [From Bactrim] Vomiting trimethoprim [From Bactrim] AdvReac Unknown Nausea & Verified 01/24/20 17:03 Vomiting Surgical - Exam Vital Signs Temp Pulse Resp BP Pulse Ox 100.6 F H 83 20 124/64 98 01/24/20 11:00 01/24/20 11:00 01/24/20 11:00 01/24/20 11:00 01/24/20 11:00 Results - Labs 01/26/20 08:03 01/26/20 08:03 Abnormal Lab Results - Last 24 Hours (Table) 01/25/20 01/25/20 01/26/20 Range/Units 16:30 20:00 06:25 WBC (3.8-10.6) k/uL RBC (4.30-5.90) m/uL Hgb (13.0-17.5) gm/dL Hct (39.0-53.0) % MCV (80.0-100.0) fL MCHC (31.0-37.0) g/dL Plt Count (150-450) k/uL Neutrophils # (1.3-7.7) k/uL Sodium (137-145) mmol/L Potassium (3.5-5.1) mmol/L BUN (9-20) mg/dL Creatinine (0.66-1.25) mg/dL Glucose (74-99) mg/dL POC Glucose (mg/dL) 217 H 194 H 273 H (75-99) mg/dL 01/26/20 01/26/20 01/26/20 Range/Units 08:03 08:03 11:35 WBC 16.6 H (3.8-10.6) k/uL RBC 2.74 L (4.30-5.90) m/uL Hgb 9.1 L (13.0-17.5) gm/dL Hct 29.4 L (39.0-53.0) % MCV 107.4 H (80.0-100.0) fL MCHC 30.9 L (31.0-37.0) g/dL Plt Count 143 L (150-450) k/uL Neutrophils # 14.5 H (1.3-7.7) k/uL Sodium 134 L (137-145) mmol/L Potassium 5.2 H (3.5-5.1) mmol/L BUN 67 H (9-20) mg/dL Creatinine 6.63 H (0.66-1.25) mg/dL Glucose 231 H (74-99) mg/dL POC Glucose (mg/dL) 186 H (75-99) mg/dL Microbiology - Last 24 Hours (Table) 01/25/20 15:49 Blood Culture Gram Stain - Preliminary Blood 01/25/20 15:49 Blood Culture - Final Blood 01/24/20 11:52 Blood Culture Gram Stain - Preliminary Blood Blood Culture - Preliminary Staphylococcus aureus Diabetes panel 01/26/20 Range/Units 08:03 Sodium 134 L (137-145) mmol/L Potassium 5.2 H (3.5-5.1) mmol/L Chloride 99 (98-107) mmol/L Carbon Dioxide 22 (22-30) mmol/L BUN 67 H (9-20) mg/dL Creatinine 6.63 H (0.66-1.25) mg/dL Glucose 231 H (74-99) mg/dL Calcium 8.6 (8.4-10.2) mg/dL Calcium panel 01/26/20 Range/Units 08:03 Calcium 8.6 (8.4-10.2) mg/dL Pituitary panel 01/26/20 Range/Units 08:03 Sodium 134 L (137-145) mmol/L Potassium 5.2 H (3.5-5.1) mmol/L Chloride 99 (98-107) mmol/L Carbon Dioxide 22 (22-30) mmol/L BUN 67 H (9-20) mg/dL Creatinine 6.63 H (0.66-1.25) mg/dL Glucose 231 H (74-99) mg/dL Calcium 8.6 (8.4-10.2) mg/dL Adrenal panel 01/26/20 Range/Units 08:03 Sodium 134 L (137-145) mmol/L Potassium 5.2 H (3.5-5.1) mmol/L Chloride 99 (98-107) mmol/L Carbon Dioxide 22 (22-30) mmol/L BUN 67 H (9-20) mg/dL Creatinine 6.63 H (0.66-1.25) mg/dL Glucose 231 H (74-99) mg/dL Calcium 8.6 (8.4-10.2) mg/dL
--- NOTE | 2020-01-26 15:18 | P.GSCN ---
History of Present Illness Consult date: 01/26/20 Reason for Consult: Chronic wounds to bilateral lower feet History of present illness: A 69-year-old male patient who came into the emergency department for fever. His past medical history significant for multiple medical problems including a trial fibrillation, asthma, diabetes, seizure disorder, chronic kidney disease on hemodialysis, history of hypertension who is followed by Dr. Rosen in the outpatient setting. He has diabetic wounds on bilateral lower extremities for which he has been following with Dr. Messina in the wound care clinic with a history of MRSA infection. He is found to have significant pleural effusion, positive blood cultures, chest x-ray with infiltrates possibly indicating pneumonia. He has a left upper extremity fistula, with a tunneled dialysis catheter however we are on sure of when the catheter was placed. The patient is known to Dr. Arguelles for a prior right fifth toe amputation earlier this year. His COVID 19 PCR is pending. Blood culture from 01/24/2020 showed a Staphylococcus aureus my a repeat blood culture from 01/25/2020 is showing gram- positive cocci in clusters. Infectious disease, wound care, nephrology, and pulmonology have been consulted. Patient is scheduled to get hemodialysis today. Review of Systems A 14 point review of systems was completed all the positives and negatives as stated in the HPI. Past Medical History Past Medical History: Atrial Fibrillation, Asthma, Heart Failure, Diabetes Mellitus, Dialysis, Eye Disorder, GERD/Reflux, Hypertension, Osteoarthritis (OA), Pneumonia, Renal Disease, Respiratory Disorder, Rheumatoid Arthritis (RA), Seizure Disorder Additional Past Medical History / Comment(s): ESRD with hemodialysis, mineral bone disease, chronic anemia, IDDM type II, diabetic retinopathy-"legally blind", chronic neuropathy in toes/bilateral feet and left leg, bilateral lower leg edema, cellulitis bilateral lower legs, bilateral leg/foot wounds/sees Dr. 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 History of Any Multi-Drug Resistant Organisms: MRSA, VRE Year Discovered:: 11/08/19 MDRO Source:: TOE VRE MRSA Past Surgical History: Hernia Repair, Orthopedic Surgery Additional Past Surgical History / Comment(s): Bilateral cataract surgery, insertion dialysis catheter left arm then had a procedure done to dialysis catheter at [facility]-cannot recall exactly what was done, PICC line inser tion/removed, bilateral inguinal hernina repairs, colonoscopy/polypectomy, R shoulder rotator cuff repair, debridements bilateral feet. Past Anesthesia/Blood Transfusion Reactions: No Reported Reaction Additional Past Anesthesia/Blood Transfusion Reaction / Comm: Pt received blood in past without reaction. Smoking Status: Former smoker - Past Family History Mother Family Medical History: Diabetes Mellitus Father Family Medical History: Cancer Additional Family Medical History / Comment(s): Metastatic cancer. Pt cannot recall primary. Medications and Allergies Home Medications Medication Instructions Recorded Confirmed Type Etanercept [Enbrel] 50 mg SQ LUU 06/12/14 01/24/20 History NIFEdipine [NIFEdipine ER] 60 mg PO DAILY 06/12/14 01/24/20 History Aspirin EC [Ecotrin Low Dose] 81 mg PO DAILY 07/31/18 01/24/20 History gemfibroziL [Lopid] 600 mg PO BID 07/31/18 01/24/20 History Calcium Acetate [PhosLo] 2,001 mg PO TID-W/MEALS 02/26/19 01/24/20 History Magnebind 250/300mg 3 tab PO BID-W/MEALS 02/26/19 01/24/20 History Metoprolol Tartrate [Lopressor] 50 mg PO BID 02/26/19 01/24/20 History Omeprazole 40 mg PO DAILY 02/26/19 01/24/20 History Prorenal + D 1 tab PO DAILY 02/26/19 01/24/20 History levOCARNitine [Levocarnitine] 330 mg PO TID-W/MEALS 06/27/19 01/24/20 History Calcium Acetate [PhosLo] 667 mg PO DAILY PRN 08/20/19 01/24/20 History Furosemide [Lasix] 40 mg PO BID 08/20/19 01/24/20 History Vit C/E/Zn/Coppr/Lutein/Zeaxan 1 cap PO DAILY 08/20/19 01/24/20 History [Preservision Areds 2 Softgel] Acetaminophen Tab [Tylenol] 650 mg PO Q6HR PRN tab 08/10/20 10/24/20 Rx ALPRAZolam [Xanax] 0.25 mg PO TID PRN 3 Days #9 tab 11/11/19 01/24/20 Rx INSULIN ASPART (NovoLOG) [NovoLOG See Protocol SQ ACHS 01/24/20 01/24/20 History (formulary)] Allergies Allergy/AdvReac Type Severity Reaction Status Date / Time sulfamethoxazole AdvReac Unknown Nausea & Verified 01/24/20 17:03 [From Bactrim] Vomiting trimethoprim [From Bactrim] AdvReac Unknown Nausea & Verified 01/24/20 17:03 Vomiting Surgical - Exam Vital Signs Temp Pulse Resp BP Pulse Ox 100.6 F H 83 20 124/64 98 01/24/20 11:00 01/24/20 11:00 01/24/20 11:00 01/24/20 11:00 01/24/20 11:00 General appearance: The patient is alert, appears to be in no acute distress. HET: Head is normocephalic and atraumatic. Neck: Supple without lymphadenopathy. Trachea midline. Heart: S1 S2. Regular rate and rhythm. Lungs: Diminished breath sounds Abdomen: Soft, nontender, nondistended with bowel sounds. Extremities: Bilateral lower extremity erythema from knee down to foot. There is no current edema, Lg wrap to bilateral extremities was removed. Diabetic ulcer to right lateral plantar foot, left second toe, left third toe, and right great toe. Non-palpable lateral PT or DP pulses. Positive bilateral monophasic posterior tibialis and dorsalis pedis signal. Neurological: Patient is drowsy, seems mildly confused. Results Foot x-ray: Previous surgery. No acute bony abnormality. No specific signs of osteomyelitis. - Labs 01/26/20 08:03 01/26/20 08:03 Abnormal Lab Results - Last 24 Hours (Table) 01/25/20 01/25/20 01/26/20 Range/Units 16:30 20:00 06:25 WBC (3.8-10.6) k/uL RBC (4.30-5.90) m/uL Hgb (13.0-17.5) gm/dL Hct (39.0-53.0) % MCV (80.0-100.0) fL MCHC (31.0-37.0) g/dL Plt Count (150-450) k/uL Neutrophils # (1.3-7.7) k/uL Sodium (137-145) mmol/L Potassium (3.5-5.1) mmol/L BUN (9-20) mg/dL Creatinine (0.66-1.25) mg/dL Glucose (74-99) mg/dL POC Glucose (mg/dL) 217 H 194 H 273 H (75-99) mg/dL 01/26/20 01/26/20 01/26/20 Range/Units 08:03 08:03 11:35 WBC 16.6 H (3.8-10.6) k/uL RBC 2.74 L (4.30-5.90) m/uL Hgb 9.1 L (13.0-17.5) gm/dL Hct 29.4 L (39.0-53.0) % MCV 107.4 H (80.0-100.0) fL MCHC 30.9 L (31.0-37.0) g/dL Plt Count 143 L (150-450) k/uL Neutrophils # 14.5 H (1.3-7.7) k/uL Sodium 134 L (137-145) mmol/L Potassium 5.2 H (3.5-5.1) mmol/L BUN 67 H (9-20) mg/dL Creatinine 6.63 H (0.66-1.25) mg/dL Glucose 231 H (74-99) mg/dL POC Glucose (mg/dL) 186 H (75-99) mg/dL Microbiology - Last 24 Hours (Table) 01/25/20 15:49 Blood Culture Gram Stain - Preliminary Blood 01/25/20 15:49 Blood Culture - Final Blood 01/24/20 11:52 Blood Culture Gram Stain - Preliminary Blood Blood Culture - Preliminary Staphylococcus aureus Diabetes panel 01/26/20 Range/Units 08:03 Sodium 134 L (137-145) mmol/L Potassium 5.2 H (3.5-5.1) mmol/L Chloride 99 (98-107) mmol/L Carbon Dioxide 22 (22-30) mmol/L BUN 67 H (9-20) mg/dL Creatinine 6.63 H (0.66-1.25) mg/dL Glucose 231 H (74-99) mg/dL Calcium 8.6 (8.4-10.2) mg/dL Calcium panel 01/26/20 Range/Units 08:03 Calcium 8.6 (8.4-10.2) mg/dL Pituitary panel 01/26/20 Range/Units 08:03 Sodium 134 L (137-145) mmol/L Potassium 5.2 H (3.5-5.1) mmol/L Chloride 99 (98-107) mmol/L Carbon Dioxide 22 (22-30) mmol/L BUN 67 H (9-20) mg/dL Creatinine 6.63 H (0.66-1.25) mg/dL Glucose 231 H (74-99) mg/dL Calcium 8.6 (8.4-10.2) mg/dL Adrenal panel 01/26/20 Range/Units 08:03 Sodium 134 L (137-145) mmol/L Potassium 5.2 H (3.5-5.1) mmol/L Chloride 99 (98-107) mmol/L Carbon Dioxide 22 (22-30) mmol/L BUN 67 H (9-20) mg/dL Creatinine 6.63 H (0.66-1.25) mg/dL Glucose 231 H (74-99) mg/dL Calcium 8.6 (8.4-10.2) mg/dL Assessment and Plan Assessment: 1. Diabetic foot ulcers 2. Bilateral lower extremity cellulitis 3. Staphylococcus aureus nectarine anemia, currently on Levaquin and vancomycin 4. End-stage renal disease, on hemodialysis 5. Altered mental status 6. Diabetes mellitus 7. History of osteomyelitis of the right fifth metatarsal status post amputation Plan: There are no acute indications for any vascular surgical interventions at this time. It is unlikely diabetic ulcers are source of infection. Continue with IV antibiotics recommended per infectious disease. Local wound care per recommendations from wound care clinic . Consult Dr. Griffith for removal of tunneled hemodialysis catheter. We will continue to follow. Thank you for this consultation allowing us take part in the plan of care with your patient during his hospital stay. The impression and plan of care has been dictated as directed. Dr. Estevez I performed a history and examination of this patient, discussed the same with the dictator. I agree with the dictator's note ,documented as a scribe. Any additional findings or plans will be noted.
[2020-01-26] MEDS ORDERED: LIDOCAINE 1% INJ 10MG/ML (20 ML MDV) ONE (15:59)
--- NOTE | 2020-01-26 16:14 | P.PCN ---
Description of Procedure: Diagnoses is acute chronic renal failure with the positive blood culture positive same Procedure patient was seen in his room right neck was prepped and draped for pressure manner Hurricaine spray applied to the to the chest area suture were removed and went circumferentially around the catheter catheter was removed pressure dressing applied patient are to the procedure well tape the catheter was sent for culture and sensitivity
[2020-01-26 16:47] LABS: Glucose,Whole Blood 95 mg/dL (75-99)
[2020-01-26] MEDS: FENOFIBRATE 160 MG TAB PO SCH (20:28)
[2020-01-26] MEDS: FAMOTIDINE 20 MG TAB PO SCH (20:28)
[2020-01-26] MEDS: HYDROcodone/APAP 5-325MG 1 EACH TAB PO PRN (20:33)
[2020-01-26 20:37] LABS: Glucose,Whole Blood 121 mg/dL (75-99)
[2020-01-27] MEDS: HYDROmorphone 0.5 MG/0.5 ML SYRINGE IVP PRN ×2 (00:35→22:37)
[2020-01-27] MEDS: ALPRAZolam 0.25 MG TAB PO PRN ×2 (03:20→20:34)
[2020-01-27] MEDS: HYDROcodone/APAP 5-325MG 1 EACH TAB PO PRN (03:20)
[2020-01-27 06:17] LABS: Glucose,Whole Blood 146 mg/dL (75-99)
[2020-01-27] MEDS: CALCIUM ACETATE 667 MG TAB PO SCH ×3 (06:32→17:40)
[2020-01-27] MEDS: levOCARNitine (WITH SUGAR) 100 MG/ML BOTTLE PO SCH ×3 (06:32→17:41)
[2020-01-27] MEDS: INSULIN ASPART (NovoLOG) 100 UNIT/ML VIAL SQ SCH ×4 (06:33→20:36)
[2020-01-27] MEDS: PANTOPRAZOLE 40 MG TABLET PO SCH (06:33)
[2020-01-27] MEDS: CALCIUM CARB-MAG CARB-FOLIC 1 EACH TAB PO SCH ×2 (06:33→17:41)
[2020-01-27 08:06] LABS: Basophils # (A) 0.1 k/uL (0-0.2); Basophils % (A) 0 %; Eosinophils # (A) 0.1 k/uL (0-0.7); Eosinophils % (A) 1 %; HGB 9.3 gm/dL (13.0-17.5); Hypochromasia Marked; Lymphocytes # (A) 1.3 k/uL (1.0-4.8); Lymphocytes % (A) 6 %; MCH 31.2 pg (25.0-35.0); MCHC 29.1 g/dL (31.0-37.0); MCV 107.2 fL (80.0-100.0); Macrocytosis Moderate; Monocytes # (A) 0.6 k/uL (0-1.0); Monocytes % (A) 3 %; Neutrophils # (A) 19.7 k/uL (1.3-7.7); Neutrophils % (A) 89 %; Platelet Count 185 k/uL (150-450); RBC 2.98 m/uL (4.30-5.90); RDW 14.6 % (11.5-15.5); WBC 22.1 k/uL (3.8-10.6)
[2020-01-27 08:17] LABS: Calcium 8.8 mg/dL (8.4-10.2); Potassium 5.2 mmol/L (3.5-5.1)
[2020-01-27] MEDS: FUROSEMIDE 40 MG TAB PO SCH ×2 (08:51→20:34)
[2020-01-27] MEDS: FOLIC ACID-VIT B COMPLEX-VIT C 1 CAP PO SCH (08:51)
[2020-01-27] MEDS: VIT A,C & E-LUTEIN-MINERALS 1 EACH TAB PO SCH (08:51)
[2020-01-27] MEDS: HEPARIN SODIUM,PORCINE 5,000 UNIT/ML 1 ML VIAL SQ SCH ×2 (08:51→20:34)
[2020-01-27] MEDS: ASPIRIN 81 MG PO SCH (08:51)
[2020-01-27] MEDS: METOPROLOL TARTRATE 25 MG TAB PO SCH ×2 (08:51→20:37)
[2020-01-27 09:21] LABS: Vancomycin,Random 12.7 ug/mL
[2020-01-27] MEDS ORDERED: VANCOMYCIN 1,750 MG in SODIUM CHLORIDE 0.9% 500 ML 500 ML IVPB ONE (10:00)
--- NOTE | 2020-01-27 11:16 | P.PN ---
Subjective This is a pleasant 69 years old male who presents with left pleural effusion and pneumonia and legs cellulitis. He is end-stage renal disease on hemodialysis he was not followed up appropriately with his dialysis therapy. Also has blood culture was positive for staph aureus. Patient is currently he's undergoing hemodialysis per nephrology recommendations, as well as he is on IV Levaquin and renal dose as well as IV vancomycin pharmacy to dose. Repeat blood cultures been negative. This morning is still looks tired however he is appropriate to question regarding his current medical problem however he thinks he is at his home. He feels generally weak. He breathes quietly on chair and his legs are in dressing Resector to 90s on 3 L oxygen for nasal cannula. Pulmonary service are planning for thoracocentesis for history of pleural effusion. Infectious disease and vascular surgery team were consulted for his antibiotic therapy and for his cellulitis rule out any vascular causes. Echocardiogram is pending. 01/27/2020 Patient is still confused and a little bit worse compared to yesterday when I saw him, could be part of his acute delirium related to his metabolic encephalopathy from his sepsis section. However patient is awake and answered some questions appropriately. No tumor or seizure-like activity was noted. Blood pressure is stable today at 110/58, rest of Vitas looks stable. He is saturating 97% on 5 L oxygen via nasal cannula. He is known to have left large pleural effusion, pulmonary service on the case, probably no indication for thoracocentesis currently as patient is not in respiratory distress. His leukocytosis is worse today at 22.1K. Rest of his CBC is unremarkable. Blood culture from 01/23 showing MSSA. Yesterday he is dialysis catheter was taken off by vascular surgery team. And sent for culture which is pending now Patient is currently on IV vancomycin and Levaquin. We are going to stop that and switch him to cefazolin He's also been treated for bilateral leg cellulitis and wound care are on the case. Echocardiogram showed ejection fraction of 40-45% with hypokinesia, cardiology team is consulted. CONSTITUTIONAL: No fever, no malaise, no fatigue. HEENT: No recent visual problems or hearing problems. Denied any sore throat. CARDIOVASCULAR: No orthopnea, PND, no palpitations, no syncope. PULMONARY: No shortness of breath, no cough, no hemoptysis. GASTROINTESTINAL: No diarrhea, no nausea, no vomiting, no abdominal pain. Normoactive bowel sounds. NEUROLOGICAL: No headaches, no weakness, no numbness. Active Medications Generic Name Dose Route Start Last Admin Trade Name Freq PRN Reason Stop Dose Admin Acetaminophen 650 mg 01/24/20 14:24 01/26/20 20:33 Acetaminophen Tab 325 Mg Tab PO 650 mg Q6HR PRN Administration Mild Pain or Fever > 100.5 Hydrocodone Bitart/Acetaminophen 1 each 01/24/20 21:25 01/27/20 03:20 Hydrocodone/Apap 5-325mg 1 Each Tab PO 1 each Q6HR PRN Administration Pain Alprazolam 0.25 mg 01/24/20 21:21 01/27/20 03:20 Alprazolam 0.25 Mg Tab PO 0.25 mg TID PRN Administration anxiety Aspirin 81 mg 01/25/20 09:00 01/27/20 08:51 Aspirin 81 Mg PO 81 mg DAILY [facility] Administration Ca Carbonate/Folic Ac/Mg Carbonate 3 each 01/25/20 07:30 01/27/20 06:33 Calcium Carb-Mag Carb-Folic 1 Each Tab PO 3 each BID-W/MEALS [facility] Administration Calcium Acetate 667 mg 01/24/20 17:58 Calcium Acetate 667 Mg Tab PO DAILY PRN with snack Calcium Acetate 2,001 mg 01/25/20 07:30 01/27/20 06:32 Calcium Acetate 667 Mg Tab PO 2,001 mg TID-W/MEALS [facility] Administration Famotidine 20 mg 01/24/20 21:00 01/26/20 20:28 Famotidine 20 Mg Tab PO 20 mg HS [facility] Administration Fenofibrate 160 mg 01/24/20 22:00 01/26/20 20:28 Fenofibrate 160 Mg Tab PO 160 mg HS [facility] Administration Furosemide 40 mg 01/24/20 21:00 01/27/20 08:51 Furosemide 40 Mg Tab PO 40 mg BID [facility] Administration Heparin Sodium (Porcine) 5,000 unit 01/25/20 09:00 01/27/20 08:51 Heparin Sodium,Porcine 5,000 Unit/Ml 1 Ml Vial SQ 5,000 unit Q12HR [facility] Administration Hydromorphone HCl 0.5 mg 01/24/20 21:25 01/27/20 00:35 Hydromorphone 0.5 Mg/0.5 Ml Syringe IVP 0.5 mg Q6HR PRN Administration Severe Pain Levofloxacin/Dextrose 250 mg/ 50 mls @ 50 mls/hr 01/26/20 14:00 01/26/20 12:38 IV Solution IVPB 50 mls/hr Q48H [facility] Administration Vancomycin HCl 1,750 mg/ 500 mls @ 167 mls/hr 01/27/20 10:00 01/27/20 10:42 Sodium Chloride IVPB 01/27/20 12:59 167 mls/hr ONCE ONE Administration Insulin Aspart 0 unit 01/24/20 21:00 01/27/20 06:33 Insulin Aspart (Novolog) 100 Unit/Ml Vial SQ 100 unit ACHS [facility] Administration Protocol Levocarnitine 330 mg 01/25/20 07:30 01/27/20 06:32 Levocarnitine (With Sugar) 100 Mg/Ml Bottle PO 330 mg TID-W/MEALS [facility] Administration Metoprolol Tartrate 25 mg 01/25/20 21:00 01/27/20 08:51 Metoprolol Tartrate 25 Mg Tab PO 25 mg BID [facility] Administration Midodrine 10 mg 01/24/20 16:16 01/26/20 20:28 Midodrine 5 Mg Tab PO 10 mg AC-TID PRN Administration Hypotension Miscellaneous Information 1 each 01/25/20 15:24 Vancomycin Iv Per Pharmacy 1 Each Misc MISCELLANE DIRECTED PRN Per Protocol Protocol Multivit/Ca Carb/B Cmplx/FA/Prenat 1 each 01/25/20 09:00 01/27/20 08:51 Folic Acid-Vit B Complex-Vit C 1 Cap PO 1 each DAILY [facility] Administration Multivitamins/Minerals 1 each 01/25/20 09:00 01/27/20 08:51 Vit A,C & W-Ezjpkz-Jwndpumo 1 Each Tab PO 1 each DAILY [facility] Administration Naloxone HCl 0.2 mg 01/24/20 14:24 Naloxone 0.4 Mg/Ml 1 Ml Vial IV Q2M PRN Opioid Reversal Ondansetron HCl 4 mg 01/24/20 18:07 Ondansetron 4 Mg Tab PO Q6HR PRN Nausea And Vomiting Pantoprazole Sodium 40 mg 01/25/20 07:30 01/27/20 06:33 Pantoprazole 40 Mg Tablet PO 40 mg 0730 [facility] Administration Temazepam 15 mg 01/24/20 21:25 Temazepam 15 Mg Cap PO HS PRN Insomnia Objective - Vital Signs Vital signs: Vital Signs Temp 98 F 01/27/20 08:21 Pulse 70 01/27/20 08:21 Resp 18 01/27/20 08:21 BP 110/58 01/27/20 08:21 Pulse Ox 97 01/27/20 08:21 Intake & Output 01/26/20 01/27/20 01/27/20 18:59 06:59 18:59 Intake Total 1860 450 Output Total 1500 0 Balance 360 450 0 Weight 116 kg Intake: Intake, IV Titration 1860 Amount Levofloxacin 250Mg-D5w 50 Pmx 250 mg In Dextrose/ Water 1 50ml.bag @ 50 mls /hr IVPB Q48H [facility] Rx#: [id number] Sodium Chloride 0.9% 1, 1560 000 ml @ 130 mls/hr IV . Q7H42M [facility] Rx#:[id number] Sodium Chloride 0.9% 500 250 ml 250 ml @ 999 mls/hr IV .Q16M [facility] Rx#:[id number] Oral 450 Output: Urine 0 Stool 0 0 Hemodialysis 1500 Other: Voiding Method Incontinent Incontinent Incontinent # Voids 1 0 # Bowel Movements 0 - Exam -GENERAL: The patient is alert and oriented x1-2, not in any acute distress. Well developed, well nourished. Generally weak HEENT: Pupils are round and equally reacting to light. EOMI. No scleral icterus. No conjunctival pallor. Normocephalic, atraumatic. No pharyngeal erythema. No thyromegaly. CARDIOVASCULAR: S1 and S2 present. No murmurs, rubs, or gallops. -PULMONARY: Chest is clear to auscultation, no wheezing or crackles. Decreased breath sounds especially on the left side ABDOMEN: Soft, nontender, nondistended, normoactive bowel sounds. No palpable organomegaly. MUSCULOSKELETAL: No joint swelling or deformity. -EXTREMITIES: No cyanosis, clubbing, or pedal edema. Bilateral leg cellulitis, and a dressing NEUROLOGICAL: Gross neurological examination did not reveal any focal deficits. SKIN: No rashes. No petechiae - Labs CBC & Chem 7: 01/27/20 07:45 01/27/20 07:45 Labs: Abnormal Lab Results - Last 24 Hours (Table) 01/26/20 01/26/2020 Range/Units 11:35 20:36 06:01 WBC (3.8-10.6) k/uL RBC (4.30-5.90) m/uL Hgb (13.0-17.5) gm/dL Hct (39.0-53.0) % MCV (80.0-100.0) fL MCHC (31.0-37.0) g/dL Neutrophils # (1.3-7.7) k/uL Sodium (137-145) mmol/L Potassium (3.5-5.1) mmol/L Carbon Dioxide (22-30) mmol/L BUN (9-20) mg/dL Creatinine (0.66-1.25) mg/dL Glucose (74-99) mg/dL POC Glucose (mg/dL) 186 H 121 H 146 H (75-99) mg/dL 01/27/20 01/27/20 Range/Units 07:45 07:45 WBC 22.1 H (3.8-10.6) k/uL RBC 2.98 L (4.30-5.90) m/uL Hgb 9.3 L (13.0-17.5) gm/dL Hct 32.0 L (39.0-53.0) % MCV 107.2 H (80.0-100.0) fL MCHC 29.1 L (31.0-37.0) g/dL Neutrophils # 19.7 H (1.3-7.7) k/uL Sodium 136 L (137-145) mmol/L Potassium 5.2 H (3.5-5.1) mmol/L Carbon Dioxide 20 L (22-30) mmol/L BUN 59 H (9-20) mg/dL Creatinine 5.78 H (0.66-1.25) mg/dL Glucose 141 H (74-99) mg/dL POC Glucose (mg/dL) (75-99) mg/dL Microbiology - Last 24 Hours (Table) 01/25/20 15:49 Blood Culture Gram Stain - Preliminary Blood Blood Culture - Preliminary Presumptive Staph aureus 01/26/20 16:49 Catheter Tip Culture - Preliminary Catheter Tip 01/24/20 11:52 Blood Culture Gram Stain - Final Blood Blood Culture - Final Staphylococcus aureus Assessment and Plan Assessment: positive blood culture with staph MSSA bacteremia Bilateral leg cellulitis Metabolic encephalopathy, secondary to above Large left pleural effusion and pneumonia is felt less likely, no need for thoracocentesis per pulmonary services End-stage renal disease on hemodialysis Noncompliance with his dialysis therapy Cardiomyopathy with low ejection fraction 40-45%, asymptomatic Plan: This is a pleasant 69 years old male with end-stage renal disease on HD, presents with bilateral axillae days and left pleural effusion with possible staff and the blood culture. Change antibiotics to cefazolin. Follow-up final culture results from the catheter Pulmonary and nephrology service R following the case. Infectious disease and vascular surgery were consulted. Continue with aspirin. Cartilage team were consulted for abnormal echo. Follow-up WBC and platelet count as well as blood pressure Labs and medication were reviewed.. Continue same treatment. Continue with symptomatic treatment. Resume home medication. Monitor lytes and vitals. DVT and GI prophylaxis. Further recommendationsas per clinical course of the patient DVT prophylaxis: Subcutaneous heparin GI Prophylaxis: Ppi PT/OT: Pending Prognosis is guarded
--- NOTE | 2020-01-27 11:38 | P.PN ---
Subjective Progress Note Date: 01/27/20 Principal diagnosis: chronic bilateral lower extremity wounds Patient was seen and examined at the bedside. No acute changes through the night, [place] afebrile. Dr. Griffith saw the patient yesterday and removed his hemodialysis catheter cultures were sent. Gets dialysis on a Sunday schedule. Patient scheduled with pulmonology for thoracentesis. Wound care has been consulted and has seen patient, has orders local wound care for bilateral lower extremity wounds. Today's labs include WBC 22.1, hemoglobin 9.3, hematocrit 32, platelets 185, sodium 136, potassium 5.2, chloride 101, BUN 59, creatinine 5.78. Objective - Vital Signs Vital signs: Vital Signs Temp 98 F 01/27/20 08:21 Pulse 70 01/27/20 08:21 Resp 18 01/27/20 08:21 BP 110/58 01/27/20 08:21 Pulse Ox 97 01/27/20 08:21 Intake & Output 01/26/20 01/27/20 01/27/20 18:59 06:59 18:59 Intake Total 1860 450 Output Total 1500 Balance 360 450 Weight 116 kg Intake: Intake, IV Titration 1860 Amount Levofloxacin 250Mg-D5w 50 Pmx 250 mg In Dextrose/ Water 1 50ml.bag @ 50 mls /hr IVPB Q48H [facility] Rx#: [id number] Sodium Chloride 0.9% 1, 1560 000 ml @ 130 mls/hr IV . Q7H42M [facility] Rx#:[id number] Sodium Chloride 0.9% 500 250 ml 250 ml @ 999 mls/hr IV .Q16M [facility] Rx#:[id number] Oral 450 Output: Stool 0 Hemodialysis 1500 Other: Voiding Method Incontinent Incontinent # Voids 1 - Exam General appearance: The patient is alert, oriented, in no acute distress. HET: Head is normocephalic and atraumatic. Neck: Supple without lymphadenopathy. Trachea midline. Extremities: Left upper extremity with fistula with palpable thrill. Left upper extremity swelling. Bilateral lower extremities dressings clean dry and intact. Neurological: No focal deficits. Strength and sensation are grossly intact. - Labs CBC & Chem 7: 01/27/20 07:45 01/27/20 07:45 Labs: Abnormal Lab Results - Last 24 Hours (Table) 10/01/26/20 01/27/20 Range/Units 11:35 20:36 06:01 WBC (3.8-10.6) k/uL RBC (4.30-5.90) m/uL Hgb (13.0-17.5) gm/dL Hct (39.0-53.0) % MCV (80.0-100.0) fL MCHC (31.0-37.0) g/dL Neutrophils # (1.3-7.7) k/uL Sodium (137-145) mmol/L Potassium (3.5-5.1) mmol/L Carbon Dioxide (22-30) mmol/L BUN (9-20) mg/dL Creatinine (0.66-1.25) mg/dL Glucose (74-99) mg/dL POC Glucose (mg/dL) 186 H 121 H 146 H (75-99) mg/dL 01/27/20 01/27/20 Range/Units 07:45 07:45 WBC 22.1 H (3.8-10.6) k/uL RBC 2.98 L (4.30-5.90) m/uL Hgb 9.3 L (13.0-17.5) gm/dL Hct 32.0 L (39.0-53.0) % MCV 107.2 H (80.0-100.0) fL MCHC 29.1 L (31.0-37.0) g/dL Neutrophils # 19.7 H (1.3-7.7) k/uL Sodium 136 L (137-145) mmol/L Potassium 5.2 H (3.5-5.1) mmol/L Carbon Dioxide 20 L (22-30) mmol/L BUN 59 H (9-20) mg/dL Creatinine 5.78 H (0.66-1.25) mg/dL Glucose 141 H (74-99) mg/dL POC Glucose (mg/dL) (75-99) mg/dL Microbiology - Last 24 Hours (Table) 01/25/20 15:49 Blood Culture Gram Stain - Preliminary Blood Blood Culture - Preliminary Presumptive Staph aureus 01/26/20 16:49 Catheter Tip Culture - Preliminary Catheter Tip 01/24/20 11:52 Blood Culture Gram Stain - Final Blood Blood Culture - Final Staphylococcus aureus 01/25/20 15:49 Blood Culture - Final Blood Assessment and Plan Assessment: 1. Diabetic foot ulcers 2. Bilateral lower extremity cellulitis 3. Staphylococcus aureus nectarine anemia, currently on Levaquin and vancomycin 4. End-stage renal disease, on hemodialysis 5. Altered mental status 6. Diabetes mellitus 7. History of osteomyelitis of the right fifth metatarsal status post amputation Plan: There are no acute indications for any vascular surgical interventions at this time. It is unlikely diabetic ulcers are source of infection. He may have outpatient follow-up upon discharge. Continue with IV antibiotics recommended per infectious disease, currently on cefazolin. Local wound care per recommendations from wound care clinic . Consult Dr. Griffith for removal of tunneled hemodialysis catheter, completed and catheter tip sent for culture. We will sign off at this time, please do not hesitate to call us back with any future concerns. The impression and plan of care has been dictated as directed. Dr. Olvera I performed a history and examination of this patient, discussed the same with the dictator. I agree with the dictator's note ,documented as a scribe. Any additional findings or plans will be noted.
--- NOTE | 2020-01-27 11:39 | P.CRDCN ---
History of Present Illness History of present illness: HISTORY OF PRESENTING ILLNESS This is a pleasant 69-year-old male past medical history significant for end-stage renal disease on hemodialysis, chronic persistent atrial fibrillation on long-term anticoagulation, hypertension, dyslipidemia, chronic systolic heart failure and diabetes mellitus. He follows in the office with Dr. Haq. We have been asked to see in consultation for cardiomyopathy noted on echocardiogram. He presented to the hospital with fever, weakness and de hydration. He has been diagnosed with bacteremia, cellulitis and encephalopathy. He is confused at baseline. He is alert but does not communicate appropriately. Information is obtained from the medical record and nursing staff. Patient is seen and examined sitting up in the chair in no acute distress. His breathing is equal and unlabored. He has no specific complaints. DIAGNOSTICS EKG reveals atrial fibrillation heart rate of 73 with poor R-wave progression. Chest xray reveals large left pleural effusion and left lower lobe consolidation, pulmonary congestion improved and no overt heart failure noted. Laboratory reviewed, ABC 22.1, hemoglobin 9.3, platelets 185, sodium 136, potassium 5.2, creatinine 5.78. Current cardiac medications include aspirin 81 mg daily, Lasix 40 mg twice a day, Lopressor 50 mg twice a day and nifedipine 60 mg daily. REVIEW OF SYSTEMS At the time of my exam: CONSTITUTIONAL: Denies fever or chills. CARDIOVASCULAR: Denies chest pain, shortness of breath, orthopnea, PND or palpitations. RESPIRATORY: Denies cough. GASTROINTESTINAL: Denies abdominal pain, diarrhea, constipation, nausea or vomiting. MUSCULOSKELETAL: Denies myalgias. NEUROLOGIC: Denies numbness, tingling or weakness. ENDOCRINE: Denies fatigue, weight change, polydipsia or polyurina. GENITOURINARY: Denies burning, hematuria or urgency with micturation. HEMATOLOGIC: Denies history of anemia or bleeding. PHYSICAL EXAMINATION Blood pressure 103/52 heart rate 80 afebrile and maintaining oxygen saturation on nasal cannula. CONSTITUTIONAL: No apparent distress. HEENT: Head is normocephalic. Pupils are equal, round. Sclerae anicteric. Mucous membranes of the mouth are moist. No JVD. No carotid bruit. CHEST EXAMINATION: Dull and diminished on the left side, clear to auscultation on the right. No chest wall tenderness is noted on palpation or with deep breathing. HEART EXAMINATION: Irregular rate and rhythm. S1, S2 heard. No murmurs, gallops or rub. ABDOMEN: Soft, nontender. Positive bowel sounds. EXTREMITIES: 2+ peripheral pulses, bilateral lower extremity edema with Lg wraps in place and no calf tenderness. NEUROLOGIC EXAMINATION: Patient is awake, alert and oriented x3. ASSESSMENT Sepsis secondary to MSSA bacteremia Lactic acidosis Leukocytosis Chronic systolic heart failure Chronic persistent atrial fibrillation not on custodial anticoagulation secondary to frequent bleeding his fistula in the past Pleural effusion, chronic Hypertension Dyslipidemia Diabetes mellitus PLAN Patient is appropriately medicated for his cardiomyopathy. He is not on an LG or ARB due to renal failure, although he is on dialysis and could be initiated on these medications, however his blood pressure runs low. Hemodynamically stable. No further cardiac recommendations at this time. Thank you kindly for this consultation. Nurse Practitioner note has been reviewed, I agree with a documented findings and plan of care. Patient was seen and examined. Past Medical History Past Medical History: Atrial Fibrillation, Asthma, Heart Failure, Diabetes Mellitus, Dialysis, Eye Disorder, GERD/Reflux, Hypertension, Osteoarthritis (OA), Pneumonia, Renal Disease, Respiratory Disorder, Rheumatoid Arthritis (RA), Seizure Disorder Additional Past Medical History / Comment(s): ESRD with hemodialysis, mineral bone disease, chronic anemia, IDDM type II, diabetic retinopathy-"legally blind", chronic neuropathy in toes/bilateral feet and left leg, bilateral lower leg edema, cellulitis bilateral lower legs, bilateral leg/foot wounds/sees Dr. 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 History of Any Multi-Drug Resistant Organisms: MRSA, VRE Date of last positivie culture/infection: 11/08/19 MDRO Source:: TOE VRE MRSA Past Surgical History: Hernia Repair, Orthopedic Surgery Additional Past Surgical History / Comment(s): Bilateral cataract surgery, insertion dialysis catheter left arm then had a procedure done to dialysis catheter at [facility]-cannot recall exactly what was done, PICC line insertion/removed, bilateral inguinal hernina repairs, colonoscopy/polypectomy, R shoulder rotator cuff repair, debridements bilateral feet. Past Anesthesia/Blood Transfusion Reactions: No Reported Reaction Additional Past Anesthesia/Blood Transfusion Reaction / Comment(s): Pt received blood in past without reaction. Smoking Status: Former smoker - Past Family History Mother Family Medical History: Diabetes Mellitus Father Family Medical History: Cancer Additional Family Medical History / Comment(s): Metastatic cancer. Pt cannot recall primary. Medications and Allergies Home Medications Medication Instructions Recorded Confirmed Type Etanercept [Enbrel] 50 mg SQ LUU 06/12/14 01/24/20 History NIFEdipine [NIFEdipine ER] 60 mg PO DAILY 06/12/14 01/24/20 History Aspirin EC [Ecotrin Low Dose] 81 mg PO DAILY 07/31/18 01/24/20 History gemfibroziL [Lopid] 600 mg PO BID 07/31/18 01/24/20 History Calcium Acetate [PhosLo] 2,001 mg PO TID-W/MEALS 02/26/19 01/24/20 History Magnebind 250/300mg 3 tab PO BID-W/MEALS 02/26/19 01/24/20 History Metoprolol Tartrate [Lopressor] 50 mg PO BID 02/26/19 01/24/20 History Omeprazole 40 mg PO DAILY 02/26/19 01/24/20 History Prorenal + D 1 tab PO DAILY 02/26/19 01/24/20 History levOCARNitine [Levocarnitine] 330 mg PO TID-W/MEALS 06/27/19 01/24/20 History Calcium Acetate [PhosLo] 667 mg PO DAILY PRN 08/20/19 01/24/20 History Furosemide [Lasix] 40 mg PO BID 08/20/19 01/24/20 History Vit C/E/Zn/Coppr/Lutein/Zeaxan 1 cap PO DAILY 08/20/19 01/24/20 History [Preservision Areds 2 Softgel] Acetaminophen Tab [Tylenol] 650 mg PO Q6HR PRN tab 11/10/19 01/24/20 Rx ALPRAZolam [Xanax] 0.25 mg PO TID PRN 3 Days #9 tab 11/11/19 01/24/20 Rx INSULIN ASPART (NovoLOG) [NovoLOG See Protocol SQ ACHS 01/24/20 01/24/20 History (formulary)] Allergies Allergy/AdvReac Type Severity Reaction Status Date / Time sulfamethoxazole AdvReac Unknown Nausea & Verified 01/24/20 17:03 [From Bactrim] Vomiting trimethoprim [From Bactrim] AdvReac Unknown Nausea & Verified 01/24/20 17:03 Vomiting Physical Exam Vitals: Vital Signs Temp Pulse Resp BP Pulse Ox 01/27/20 11:24 98.2 F 80 18 103/52 95 01/27/20 08:21 98 F 70 18 110/58 97 01/27/20 04:00 97.6 F 75 18 115/56 90 L 01/27/20 00:00 98.6 F 60 18 113/57 91 L 01/26/20 20:00 97.6 F 76 18 94/50 93 L 01/26/20 16:27 51 L 20 89/51 01/26/20 16:24 87/53 01/26/20 16:10 113 H 18 107/56 96 01/26/20 16:00 51 L 20 01/26/20 14:17 88/52 01/26/20 12:00 63 18 78/48 95 Intake and Output 01/26/20 01/27/20 01/27/20 22:59 06:59 14:59 Intake Total 1860 450 Output Total 1500 0 Balance 360 450 0 Intake: Intake, IV Titration 1860 Amount Levofloxacin 250Mg-D5w 50 Pmx 250 mg In Dextrose/ Water 1 50ml.bag @ 50 mls /hr IVPB Q48H [facility] Rx#: [id number] Sodium Chloride 0.9% 1, 1560 000 ml @ 130 mls/hr IV . Q7H42M [facility] Rx#:[id number] Sodium Chloride 0.9% 500 250 ml 250 ml @ 999 mls/hr IV .Q16M [facility] Rx#:[id number] Oral 450 Output: Urine 0 Stool 0 0 Hemodialysis 1500 Other: Voiding Method Incontinent Incontinent Incontinent # Voids 0 # Bowel Movements 0 Weight 116 kg Results 01/27/20 07:45 01/27/20 07:45 CBC 01/27/20 Range/Units 07:45 WBC 22.1 H (3.8-10.6) k/uL RBC 2.98 L (4.30-5.90) m/uL Hgb 9.3 L (13.0-17.5) gm/dL Hct 32.0 L (39.0-53.0) % Plt Count 185 (150-450) k/uL Comprehensive Metabolic Panel 01/27/20 Range/Units 07:45 Sodium 136 L (137-145) mmol/L Potassium 5.2 H (3.5-5.1) mmol/L Chloride 101 (98-107) mmol/L Carbon Dioxide 20 L (22-30) mmol/L BUN 59 H (9-20) mg/dL Creatinine 5.78 H (0.66-1.25) mg/dL Glucose 141 H (74-99) mg/dL Calcium 8.8 (8.4-10.2) mg/dL Current Medications Generic Name Dose Route Start Last Admin Trade Name Freq PRN Reason Stop Dose Admin Acetaminophen 650 mg 01/24/20 14:24 01/26/20 20:33 Acetaminophen Tab 325 Mg Tab PO 650 mg Q6HR PRN Administration Mild Pain or Fever > 100.5 Hydrocodone Bitart/Acetaminophen 1 each 01/24/20 21:25 01/27/20 03:20 Hydrocodone/Apap 5-325mg 1 Each Tab PO 1 each Q6HR PRN Administration Pain Alprazolam 0.25 mg 01/24/20 21:21 01/27/20 03:20 Alprazolam 0.25 Mg Tab PO 0.25 mg TID PRN Administration anxiety Aspirin 81 mg 01/25/20 09:00 01/27/20 08:51 Aspirin 81 Mg PO 81 mg DAILY HAYDER Administration Ca Carbonate/Folic Ac/Mg Carbonate 3 each 01/25/20 07:30 01/27/20 06:33 Calcium Carb-Mag Carb-Folic 1 Each Tab PO 3 each BID-W/MEALS HAYDER Administration Calcium Acetate 667 mg 01/24/20 17:58 Calcium Acetate 667 Mg Tab PO DAILY PRN with snack Calcium Acetate 2,001 mg 01/25/20 07:30 01/27/20 06:32 Calcium Acetate 667 Mg Tab PO 2,001 mg TID-W/MEALS HAYDER Administration Famotidine 20 mg 01/24/20 21:00 01/26/20 20:28 Famotidine 20 Mg Tab PO 20 mg HS HAYDER Administration Fenofibrate 160 mg 01/24/20 22:00 01/26/20 20:28 Fenofibrate 160 Mg Tab PO 160 mg HS HAYDER Administration Furosemide 40 mg 01/24/20 21:00 01/27/20 08:51 Furosemide 40 Mg Tab PO 40 mg BID HAYDER Administration Heparin Sodium (Porcine) 5,000 unit 01/25/20 09:00 01/27/20 08:51 Heparin Sodium,Porcine 5,000 Unit/Ml 1 Ml Vial SQ 5,000 unit Q12HR HAYDER Administration Hydromorphone HCl 0.5 mg 01/24/20 21:25 01/27/20 00:35 Hydromorphone 0.5 Mg/0.5 Ml Syringe IVP 0.5 mg Q6HR PRN Administration Severe Pain Cefazolin Sodium 1,000 mg/ 50 mls @ 100 mls/hr 01/27/20 11:15 Sodium Chloride IVPB Q12HR HAYDER Insulin Aspart 0 unit 01/24/20 21:00 01/27/20 06:33 Insulin Aspart (Novolog) 100 Unit/Ml Vial SQ 100 unit ACHS HAYDER Administration Protocol Levocarnitine 330 mg 01/25/20 07:30 01/27/20 06:32 Levocarnitine (With Sugar) 100 Mg/Ml Bottle PO 330 mg TID-W/MEALS HAYDER Administration Metoprolol Tartrate 25 mg 01/25/20 21:00 01/27/20 08:51 Metoprolol Tartrate 25 Mg Tab PO 25 mg BID HAYDER Administration Midodrine 10 mg 01/24/20 16:16 01/26/20 20:28 Midodrine 5 Mg Tab PO 10 mg AC-TID PRN Administration Hypotension Multivit/Ca Carb/B Cmplx/FA/Prenat 1 each 01/25/20 09:00 01/27/20 08:51 Folic Acid-Vit B Complex-Vit C 1 Cap PO 1 each DAILY HAYDER Administration Multivitamins/Minerals 1 each 01/25/20 09:00 01/27/20 08:51 Vit A,C & Q-Unfehr-Cionlodq 1 Each Tab PO 1 each DAILY HAYDER Administration Naloxone HCl 0.2 mg 01/24/20 14:24 Naloxone 0.4 Mg/Ml 1 Ml Vial IV Q2M PRN Opioid Reversal Ondansetron HCl 4 mg 01/24/20 18:07 Ondansetron 4 Mg Tab PO Q6HR PRN Nausea And Vomiting Pantoprazole Sodium 40 mg 01/25/20 07:30 01/27/20 06:33 Pantoprazole 40 Mg Tablet PO 40 mg 0730 HAYDER Administration Temazepam 15 mg 01/24/20 21:25 Temazepam 15 Mg Cap PO HS PRN Insomnia Intake and Output 01/26/20 01/27/20 01/27/20 22:59 06:59 14:59 Intake Total 1860 450 Output Total 1500 0 Balance 360 450 0 Intake: Intake, IV Titration 1860 Amount Levofloxacin 250Mg-D5w 50 Pmx 250 mg In Dextrose/ Water 1 50ml.bag @ 50 mls /hr IVPB Q48H [facility] Rx#: [id number] Sodium Chloride 0.9% 1, 1560 000 ml @ 130 mls/hr IV . Q7H42M [facility] Rx#:[id number] Sodium Chloride 0.9% 500 250 ml 250 ml @ 999 mls/hr IV .Q16M [facility] Rx#:[id number] Oral 450 Output: Urine 0 Stool 0 0 Hemodialysis 1500 Other: Voiding Method Incontinent Incontinent Incontinent # Voids 0 # Bowel Movements 0 Weight 116 kg 01/27/20 07:45 01/27/20 07:45
[2020-01-27 11:42] LABS: Glucose,Whole Blood 158 mg/dL (75-99)
--- NOTE | 2020-01-27 13:11 | P.PN ---
Subjective Progress Note Date: 01/27/20 Principal diagnosis: Fever, pleural effusion This is a 69-year-old gentleman with a history of multiple medical problems including end-stage renal disease on hemodialysis, chronic atrial fibrillation, chronic congestive heart failure, diabetes mellitus type 2, chronic bronchial asthma, hypertension, osteoarthritis, rheumatoid arthritis, seizure disorder. In addition patient has a history of chronic diabetic wounds involving his lower extremities, with history of MRSA infections and bacteremia with history of mitral valve endocarditis. Patient also had a history of vancomycin-resistant enterococcal infection. We have previously seen the patient in consultation before for left pleural effusion which is chronic for this patient, patient has had left sided thoracentesis in the past by our group, and interventional radiology. In the fluid was exudative, with negative cytology. Patient came to the hospital on 01/23/2020 for evaluation of fever for 2 days prior to a dmission, weakness, dehydration and pain and in the left side of his lateral and lower chest area. His chest x-ray showed large left pleural effusion, ultrasound and the chest showed 13.4 cm pleural effusion pocket. Clinically patient looks to be in no distress, he is on 3 L of oxygen and pulse ox of 95%. Patient is chronically hypotensive, spoke to the nephrology, was very familiar with the patient. Patient supposed to have hemodialysis treatment today. He was started on Levaquin and vancomycin. His COVID 19 PCR is pending, his blood cultures from 9 01/24/2020 showed a Staphylococcus aureus, his repeat blood culture from 01/25/2020 showed gram-positive cocci in clusters. ID service is following, nephrology is following, Dr. Arguelles was consulted for her chronic foot ulcers, patient had amputation of right fifth digit on his right foot, and there are open areas, x-ray of the right foot showed no acute bony abnormality, no specific sign of osteomyelitis. On 01/27/2020 patient seen in follow-up on selective care unit, he is resting in the recliner, he is currently on 5 L of oxygen with pulse ox of 95-97%, his been afebrile, his breathing is nonlabored although patient does admit to being short of breath more so than usual. His permacath dialysis catheter was removed yesterday, patient remains on antibiotics including Levaquin and vancomycin. 2 of his blood cultures showed Staphylococcus aureus, permacath catheter tip was sent for culture, final cultures pending, will obtain follow-up blood culture. Lung sounds reveal diminished breath sounds over the left lower lobe, no significant rhonchi or wheezing. His surgery is following, and there is no indication for surgical intervention for bilateral lower extremity cellulitis or right foot wound with a recent history of right fifth digit amputation Objective - Vital Signs Vital signs: Vital Signs Temp 98.2 F 01/27/20 11:24 Pulse 80 01/27/20 11:24 Resp 18 01/27/20 11:24 BP 103/52 01/27/20 11:24 Pulse Ox 95 01/27/20 11:24 Intake & Output 01/26/20 01/27/20 01/27/20 18:59 06:59 18:59 Intake Total 1860 450 Output Total 1500 0 Balance 360 450 0 Weight 116 kg Intake: Intake, IV Titration 1860 Amount Levofloxacin 250Mg-D5w 50 Pmx 250 mg In Dextrose/ Water 1 50ml.bag @ 50 mls /hr IVPB Q48H [facility] Rx#: [id number] Sodium Chloride 0.9% 1, 1560 000 ml @ 130 mls/hr IV . Q7H42M [facility] Rx#:[id number] Sodium Chloride 0.9% 500 250 ml 250 ml @ 999 mls/hr IV .Q16M [facility] Rx#:[id number] Oral 450 Output: Urine 0 Stool 0 0 Hemodialysis 1500 Other: Voiding Method Incontinent Incontinent Incontinent # Voids 1 0 # Bowel Movements 0 - Exam GENERAL EXAM: Lethargic, 69-year-old white female, in the recliner, heart rate is approximately plus at 95% on 5 L comfortable in no apparent distress. HEAD: Normocephalic/atraumatic. EYES: Normal reaction of pupils, equal size. Conjunctiva pink, sclera white. NOSE: Clear with pink turbinates. THROAT: No erythema or exudates. NECK: No masses, no JVD, no thyroid enlargement, no adenopathy. CHEST: No chest wall deformity. Symmetrical expansion. LUNGS: Diminished air entry over left lung, some crackles at the right lower base CVS: Regular rate and rhythm, normal S1 and S2, no gallops, no murmurs, no rubs ABDOMEN: Soft, nontender. No hepatosplenomegaly, normal bowel sounds, no guarding or rigidity. EXTREMITIES: No clubbing, very mild pretibial no cyanosis, 2+ pulses and upper and lower extremities. MUSCULOSKELETAL: Muscle strength and tone normal. SPINE: No scoliosis or deformity SKIN: Patient has chronic wounds on bilateral lower extremities, mostly dry scabbed over, nondraining wounds on the bilateral shins, patient has an amputated fifth metatarsal, with some open areas surrounding the amputation site CENTRAL NERVOUS SYSTEM: Lethargic but arousable No focal deficits, tone is no rmal in all 4 extremities. - Labs CBC & Chem 7: 01/27/20 07:45 01/27/20 07:45 Labs: Abnormal Lab Results - Last 24 Hours (Table) 01/26/20 01/27/20 01/27/20 Range/Units 20:36 06:01 07:45 WBC 22.1 H (3.8-10.6) k/uL RBC 2.98 L (4.30-5.90) m/uL Hgb 9.3 L (13.0-17.5) gm/dL Hct 32.0 L (39.0-53.0) % MCV 107.2 H (80.0-100.0) fL MCHC 29.1 L (31.0-37.0) g/dL Neutrophils # 19.7 H (1.3-7.7) k/uL Sodium (137-145) mmol/L Potassium (3.5-5.1) mmol/L Carbon Dioxide (22-30) mmol/L BUN (9-20) mg/dL Creatinine (0.66-1.25) mg/dL Glucose (74-99) mg/dL POC Glucose (mg/dL) 121 H 146 H (75-99) mg/dL 01/27/20 01/27/20 Range/Units 07:45 11:41 WBC (3.8-10.6) k/uL RBC (4.30-5.90) m/uL Hgb (13.0-17.5) gm/dL Hct (39.0-53.0) % MCV (80.0-100.0) fL MCHC (31.0-37.0) g/dL Neutrophils # (1.3-7.7) k/uL Sodium 136 L (137-145) mmol/L Potassium 5.2 H (3.5-5.1) mmol/L Carbon Dioxide 20 L (22-30) mmol/L BUN 59 H (9-20) mg/dL Creatinine 5.78 H (0.66-1.25) mg/dL Glucose 141 H (74-99) mg/dL POC Glucose (mg/dL) 158 H (75-99) mg/dL Microbiology - Last 24 Hours (Table) 01/25/20 15:49 Blood Culture Gram Stain - Preliminary Blood Blood Culture - Preliminary Presumptive Staph aureus 01/26/20 16:49 Catheter Tip Culture - Preliminary Catheter Tip 01/24/20 11:52 Blood Culture Gram Stain - Final Blood Blood Culture - Final Staphylococcus aureus Assessment and Plan Plan: Assessment: #1. Left-sided chest discomfort likely related to large left-sided pleural effusion, ultrasound and chest showing 13.4 cm pocket of fluid on the left side, which is somewhat chronic for this patient, with previous history of left-sided thoracentesis with exudative fluid negative cultures, and negative cytology #2. Staphylococcus aureus bacteremia, currently on Levaquin and vancomycin #3. Bilateral leg cellulitis #4. End-stage renal disease on hemodialysis on Sunday and Sunday schedule #5. Confusion, altered mental status related to metabolic encephalopathy #6. History of chronic osteomyelitis of the right fifth metatarsal, diabetic plantar wounds, nonhealing, status post right amputation of the right fifth toe/metatarsal in November 2019 #7. History of MRSA and VRE bacteremia, with history of endocarditis #8. Diabetes mellitus with diabetic retinopathy and neuropathy #9. History of pneumonia #10. History of rheumatoid arthritis #11. Seizure disorder #12. Multiple other medical problems and comorbidities Plan: We'll plan on left thoracentesis today as the patient is complaining of being slightly more short of breath. Continue same antibiotics, will obtain follow-up blood culture, patient is on, initially Levaquin and vancomycin, his blood culture showed presumptive staph and Staphylococcus aureus, his permacath was removed, catheter tip cultures pending. Clinical culture to lower extremity cellulitis and wound on the right foot. Hemodynamically stable, no fever or chills, continue to follow, pleural fluid will be sent for analysis and cultures. I performed a history & physical examination of the patient and discussed their management with my nurse practitioner, Raven Arias. I reviewed the nurse practitioner's note and agree with the documented findings and plan of care. Lung sounds are positive for diminished breath sounds. The findings and the impression was discussed with the patient. I attest to the documentation by the nurse practitioner. Time with Patient: Less than 30
--- NOTE | 2020-01-27 14:11 | PN ---
PROGRESS NOTE Patient is seen for followup for end-stage renal disease. He is currently sitting up on a bedside chair. No significant complaints. However, he has been confused, he is weak but able to sit on a chair. Patient's dialysis catheter was removed yesterday as 4/4 blood cultures were positive for MRSA, post admission. Patient tolerated his dialysis fair yesterday. We had about 1.5 L of fluid removed. Blood pressure was staying on the lower side; however, patient is maintained on midodrine. Echocardiogram showed no evidence of vegetations and ejection fraction was 40%-45%. PHYSICAL EXAMINATION: Today, patient is comfortable, awake, he is not in any acute distress. Blood pressure 103/52, heart rate 80 per minute, he is afebrile. Examination of the heart S1, S2. Examination of the lungs, bilateral breath sounds are heard. Abdomen is soft, nontender. Examination of the lower extremities shows bilateral extremities to be wrapped. Edema has improved in his legs. DIRECTOR MEDICAL SURGICAL exam shows patient is moving all 4 extremities. However, he has been confused. LABS: Shows hemoglobin 9.3, white cell count 22.1, sodium 136, potassium 5.2, BUN 59, creatinine 5.78, calcium 8.8. ASSESSMENT: 1. End-stage renal disease, on hemodialysis on a Sunday, Sunday, Sunday schedule. We will arrange for hemodialysis tomorrow. However, I will clear with Vascular Surgery if we can use his AV fistula. Patient has had issues with bleeding from his fistula before and that is why the PermCath was placed in order to perform intervention on the access, which I believe has not been performed yet. 2. MRSA bacteremia, source is either the right foot or the PermCath, status post removal of PermCath. X-ray of the foot does not show osteomyelitis, but patient has had previous MRSA infection from his foot. 3. Generalized debility. 4. CKD mineral bone disorder. PLAN: Hemodialysis in a.m. We will likely use his AV fistula and I will discuss with Vascular Surgery regarding his access. Continue with the antibiotics for now. MMODL / IJN: [id number] /
[2020-01-27] MEDS ORDERED: LIDOCAINE 2% INJ 20 MG/ML (20 ML MDV) ONE (16:10)
[2020-01-27 17:16] LABS: Glucose,Whole Blood 144 mg/dL (75-99)
--- NOTE | 2020-01-27 17:16 | XR ---
EXAMINATION TYPE: XR chest 1V portable DATE OF EXAM: 01/27/2020 COMPARISON: 01/25/2020 HISTORY: Pleural effusion. Thoracentesis. TECHNIQUE: Single view FINDINGS: There is moderate size left pleural effusion. There is slight coarsening of interstitial ma rkings right lung. There are chest leads. There is no pneumothorax. IMPRESSION: Moderate left pleural effusion and left lower lobe consolidation with 50% reduction in th e fluid compared to recent exam. No pneumothorax.
[2020-01-27 17:27] LABS: ABG Base Excess -3.8 mmol/L; ABG HCO3 21 mmol/L (21-25); ABG Oxygen Saturation 99.4 % (94-97); ABG PCO2 36 mmHg (35-45); ABG PH 7.38 (7.35-7.45); ABG PO2 119 mmHg (83-108); ABG TCO2 23 mmol/L (19-24); Allen Test Performed? Yes
--- NOTE | 2020-01-27 18:26 | P.PCN ---
Date of Procedure: 01/27/20 Preoperative Diagnosis: Septic shock, left-sided pleural effusion Postoperative Diagnosis: Septic shock, left-sided pleural effusion Procedure(s) Performed: Insertion of a triple-lumen catheter, Thoracentesis Anesthesia: local Surgeon: Zully Bustos Estimated Blood Loss (ml): 0 Pathology: none sent Condition: critical Disposition: ICU Operative Findings: Central line insertion Indication: Hemodynamic monitoring/Intravenous access. A time-out was completed verifying correct patient, procedure, site, positioning, and implant(s) or special equipment if applicable. The patient was placed in a dependent position appropriate for central line placement based on the vein to be cannulated. The patients right groin was prepped and draped in sterile fashion. 1% Lidocaine was used to anesthetize the surrounding skin area. A triple lumen 9F Cordis catheter was introduced into the common femoral vein using Seldinger technique. The catheter was threaded smoothly over the guide wire and appropriate blood return was obtained. Each lumen of the catheter was evacuated of air and flushed with sterile saline. The catheter was then sutured in place to the skin and a sterile dressing applied. Perfusion to the extremity distal to the point of catheter insertion was checked and found to be adequate. The patient tolerated the procedure well and there were no complications. Thoracentesis A time out was performed and the chest x-ray was reviewed, the appropriate side was confirmed and marked. My hands were washed immediately prior to the procedure. I wore a surgical cap, mask with protective eyewear, sterile gown and sterile gloves throughout the procedure. The patient was prepped and draped in a sterile manner using chlorhexidine scrub after the appropriate level was percussed and confirmed by ultrasound. 1% lidocaine was used to anesthesize the skin, subcutaneous tissue, superior aspect of the rib periosteum and parietal pleura. A finder needle was then introduced over the superior aspect of the rib to locate the pleural fluid; 2colored fluid was aspirated at a depth of approximately 2 cm. A 10-blade scalpel was used to lucina the skin at the insertion site. The Fliw-s-Vwfjnldy needle was then introduced through the skin incision into the pleural space using negative aspiration pressure and the red colometric indicator to confirm appropriate positioning of the needle. The thoracentesis catheter was then threaded without difficulty 2200 ml of turbid colored fluid was removed without difficulty. The catheter was then removed. No immediate complications were noted during the procedure. A post-procedure chest x-ray is pending at the time of this note. The fluid will be sent for studies. Estimated blood loss is 0cc
[2020-01-27] MEDS ORDERED: VANCOMYCIN IV PER PHARMACY 1 EACH MISC MISCELLANE PRN (18:45)
[2020-01-27 18:48] LABS: Appearance,BF Hazy; Color,BF Red; Nucleated Cells, Body Fluid 800 /uL; RBC, Body Fluid 450600 /uL
[2020-01-27 18:51] LABS: Mononuclear WBC,Body Fluid 77 %; Polynuclear WBC,Body Fluid 15 %; Total Cells Counted,Body Fluid 100
[2020-01-27 20:15] LABS: Glucose,Whole Blood 151 mg/dL (75-99)
[2020-01-27] MEDS: FAMOTIDINE 20 MG TAB PO SCH (20:34)
[2020-01-27] MEDS: FENOFIBRATE 160 MG TAB PO SCH (20:34)
[2020-01-28 04:08] LABS: Basophils # (A) 0.3 k/uL (0-0.2); Basophils % (A) 1 %; Eosinophils # (A) 0.1 k/uL (0-0.7); Eosinophils % (A) 1 %; HCT 33.2 % (39.0-53.0); HGB 10.1 gm/dL (13.0-17.5); Hypochromasia Moderate; Lymphocytes # (A) 1.6 k/uL (1.0-4.8); Lymphocytes % (A) 7 %; MCHC 30.5 g/dL (31.0-37.0); MCV 104.7 fL (80.0-100.0); Macrocytosis Moderate; Mean Platelet Volume 9.2; Monocytes # (A) 0.6 k/uL (0-1.0); Monocytes % (A) 3 %; Neutrophils # (A) 19.1 k/uL (1.3-7.7); Neutrophils % (A) 87 %; Platelet Count 162 k/uL (150-450); RBC 3.17 m/uL (4.30-5.90); RDW 14.7 % (11.5-15.5)
[2020-01-28 04:18] LABS: Calcium 8.9 mg/dL (8.4-10.2); Potassium 5.1 mmol/L (3.5-5.1)
[2020-01-28 04:23] LABS: Vancomycin,Random 13.7 ug/mL
--- NOTE | 2020-01-28 04:42 | XR ---
EXAM: XR Chest, 1 View CLINICAL HISTORY: ITS.REASON XR Reason: shortness of breath TECHNIQUE: Frontal view of the chest. COMPARISON: Yesterday FINDINGS: Lungs: Moderate to large amount of airspace opacities throughout both lungs are increased. Pleural space: Large left pleural effusion is increased. No pneumothorax. Heart: Unremarkable. No cardiomegaly. Mediastinum: Unremarkable. Bones/joints: Unremarkable. IMPRESSION: 1. Large left pleural effusion is increased. 2. Moderate to large amount of airspace opacities throughout both lungs are increased.
[2020-01-28 05:05] LABS: ABG Base Excess -3.9 mmol/L; ABG HCO3 22 mmol/L (21-25); ABG Oxygen Saturation 90.1 % (94-97); ABG PCO2 42 mmHg (35-45); ABG PH 7.33 (7.35-7.45); ABG PO2 62 mmHg (83-108); ABG TCO2 23 mmol/L (19-24); Allen Test Performed? Yes
[2020-01-28] MEDS ORDERED: HALOPERIDOL LACTATE 5 MG/ML 1 ML VIAL IVP PRN (05:11)
[2020-01-28 06:46] LABS: Glucose,Whole Blood 139 mg/dL (75-99)
[2020-01-28] MEDS: INSULIN ASPART (NovoLOG) 100 UNIT/ML VIAL SQ SCH ×4 (07:08→20:52)
[2020-01-28] MEDS ORDERED: propofoL 100 ML IV ONE (08:29)
[2020-01-28] MEDS ORDERED: CISATRACURIUM 2 MG/ML 5 ML VIAL IV ONE (08:48)
[2020-01-28 08:59] LABS: ABG Base Excess -4.7 mmol/L; ABG HCO3 23 mmol/L (21-25); ABG Oxygen Saturation 92.3 % (94-97); ABG PCO2 53 mmHg (35-45); ABG PH 7.24 (7.35-7.45); ABG PO2 75 mmHg (83-108); ABG TCO2 24 mmol/L (19-24)
[2020-01-28] MEDS ORDERED: NOREPINEPHRINE 32 MG in SODIUM CHLORIDE 0.9% 218 ML IV SCH (09:00)
--- NOTE | 2020-01-28 09:06 | XR ---
EXAMINATION TYPE: XR chest 1V portable DATE OF EXAM: 01/28/2020 CLINICAL HISTORY: Tube placement. TECHNIQUE: Portable supine view of the chest. COMPARISON: 01/28/2020 4:24 AM chest radiograph FINDINGS: Endotracheal tube distal tip 6.1 cm and the michael. Enteric tube courses over the left upp er quadrant with nonvisualization of the distal tip. There is large left pleural effusion and bilater al airspace opacities. Cardiac silhouette is obscured. Supine technique limits evaluation for pneumot horax. IMPRESSION: 1. Endotracheal tube distal tip 6.1 cm from the michael. 2. Large left pleural effusion and redemonstrated bilateral airspace opacities.
[2020-01-28 09:10] LABS: Allen Test Performed? NO
[2020-01-28] MEDS: CALCIUM CARB-MAG CARB-FOLIC 1 EACH TAB PO SCH ×2 (09:10→15:54)
[2020-01-28] MEDS: levOCARNitine (WITH SUGAR) 100 MG/ML BOTTLE PO SCH ×2 (09:10→15:54)
[2020-01-28] MEDS: CALCIUM ACETATE 667 MG TAB PO SCH ×3 (09:10→15:54)
[2020-01-28] MEDS ORDERED: MORPHINE SULFATE 2 MG/ML SYRINGE IVP PRN (09:11)
[2020-01-28] MEDS: PANTOPRAZOLE 40 MG TABLET PO SCH (09:11)
[2020-01-28] MEDS ORDERED: AMPICILLIN-SULBACTAM 1.5 GM in SODIUM CHLORIDE 0.9% 50 ML IVPB SCH (10:00)
[2020-01-28] MEDS: NOREPINEPHRINE 8 MG in SODIUM CHLORIDE 0.9% 250 ML IV SCH ×3 (10:05→21:45)
[2020-01-28] MEDS: ASPIRIN 81 MG PO SCH (10:10)
[2020-01-28] MEDS: CHLORHEXIDINE GLUCONATE 15 ML CUP MUCOUS MEM SCH ×2 (10:10→20:51)
[2020-01-28] MEDS: VIT A,C & E-LUTEIN-MINERALS 1 EACH TAB PO SCH (10:11)
[2020-01-28] MEDS: FOLIC ACID-VIT B COMPLEX-VIT C 1 CAP PO SCH (10:11)
[2020-01-28] MEDS: METOPROLOL TARTRATE 25 MG TAB PO SCH ×2 (10:11→20:52)
--- NOTE | 2020-01-28 11:41 | PN ---
PROGRESS NOTE Patient is seen for followup for end-stage renal disease. He was transferred to the ICU yesterday and was eventually intubated early this morning. Patient was hypotensive and was maintained on 40 mcg of Levophed; however, this is slightly decreased now, although it remains significant amount. Patient had a left thoracentesis done yesterday, but his effusion has recurred. Patient's would like to proceed with FULL CODE status. PHYSICAL EXAMINATION: On examination today, patient is sedated on the vent, FiO2 at 100%. Levophed, he is at about 23 mcg on the Levophed. Examination of the heart S1, S2. Examination of the lungs, bilateral breath sounds are heard. Abdomen is soft, nontender. Examination of the lower extremities shows bilateral extremities to be wrapped. CLUB ATTENDANT exam cannot be assessed. LABS: Show potassium 5.1, sodium 136 today, BUN 79 serum creatinine 6.6, hemoglobin 10.1. ASSESSMENT: 1. End-stage renal disease, on hemodialysis on a Sunday, Sunday, Sunday schedule. 2. Staph aureus bacteremia, appears to be MSSA with all blood cultures positive thus far, that is 6 blood cultures, status post removal of the dialysis catheter with tip being positive for Staph aureus as well. Currently, patient is maintained on vancomycin. He did a get started on Unasyn for aspiration. 3. Aspiration this morning, maintained on antibiotics, currently on the vent. 4. Left pleural effusion, status post thoracentesis. 5. CKD mineral bone disorder. PLAN: If patient is hemodynamically stable and Levophed is not being increased, we will try dialysis from the AV fistula with 17-gauge needles, UF about 500-800 mL depending on his hemodynamics. MMODL / IJN: [id number] /
[2020-01-28 11:45] LABS: ABG Base Excess -6.2 mmol/L; ABG HCO3 21 mmol/L (21-25); ABG Oxygen Saturation 99.9 % (94-97); ABG PCO2 46 mmHg (35-45); ABG PH 7.27 (7.35-7.45); ABG PO2 231 mmHg (83-108); ABG TCO2 22 mmol/L (19-24)
[2020-01-28 11:55] LABS: Allen Test Performed? No
[2020-01-28] MEDS: HEPARIN SODIUM,PORCINE 5,000 UNIT/ML 1 ML VIAL SQ SCH ×2 (12:04→20:51)
--- NOTE | 2020-01-28 13:02 | P.PN ---
Subjective Progress Note Date: 01/28/20 On 01/28/2020, the patient is in the intensive care units for septic shock, altered mentation, decompensated respiratory failure that occurred yesterday. The patient a chest to the intensive care unit yesterday afternoon and I performed a thoracentesis and I reviewed with a total of 2.2 L of fluid from the left lung. The patient did not have any major improvement in respiratory status continued to be quite short of breath and overnight and earlier this morning the patient decompensated further. A repeat chest x-ray was done and showed a readmission of a large left-sided pleural effusion and some increased marking on the right. The patient was placed on a BiPAP and he was still struggling with and ventilation high respiratory rate. Based on that, it was decided to intubate this patient early this morning. Intubation was done in the intensive care unit. The patient was given propofol. During the intubation process, the patient had a large volume emesis and possibly some aspiration. We secured airway. Post intubation, the patient became hypotensive. At this point in time, the patient is upper vulvar running at 40 mg per KG per minute. The patient is also on norepinephrine infusion and the dose being titrated and currently is running at 0.15 mg per KG per minute. The patient is in atrial fibrillation. The patient is currently intubated on a mechanical ventilator. I checked on the patient on multiple occasions and ultimately I switched him to a pressure control mode of ventilation and the most recent pressure control settings is at a pressure of 25 cm of water with an FiO2 of 100% and a PEEP of 10 and the respiratory rate of 26. The subsequent blood gases showed a pH of 7.27 with a pCO2 of 46 and pO2 of 231 nothing should be able to gradually wean off the FiO2 and bring down the PEEP. The chest x-ray post intubation showed adequate positioning of the ET tube. NG tube is in place. The patient has a large left-sided pleural effusion again noted on today's chest x-ray. The patient has persistent bacteremia with MSSA. The patient was switched to IV Solu and I subsequently switched him to IV Unasyn knowing that the patient could have had aspiration at a time of the intubation process. The patient otherwise is producing minimal amount of urine output. The patient will need hemodialysis. I discussed the case with nephrology and the patient will be acc essed through his AV fistula in the left upper extremity. In December was also inserted during the process in the right femoral artery. The patient will also need an echocardiogram to rule out any valvular vegetation. Cardiology was made aware. The white cell count was at 22.0. Hemoglobin is at 10.1. Currently the patient sedated with propofol and is calm and comfortable. He is a full was st atus according to the . Objective - Vital Signs Vital signs: Vital Signs Temp 98.2 F 01/28/20 00:00 Pulse 67 01/28/20 11:30 Resp 35 H 01/28/20 11:30 BP 130/59 01/28/20 09:00 Pulse Ox 95 01/28/20 11:30 Intake & Output 01/27/20 01/28/20 01/28/20 18:59 06:59 18:59 Intake Total 0 100 1181.356 Output Total 0 0 0 Balance 0 100 1181.356 Weight 100.5 kg Intake: IV 100 1150 0.9 50 1150 ceFAZolin 1,000 mg In 50 Sodium Chloride 0.9% 50 ml @ 100 mls/hr IVPB Q12HR [facility] Rx#:[id number] Intake, IV Titration 31.356 Amount propofoL 1,000 mg In 31.356 Empty Bag 1 bag @ Titrate IV .Q0M [facility] Rx#: [id number] Oral 0 Output: Urine 0 0 0 Stool 0 Other: Voiding Method Incontinent Incontinent # Voids 0 # Bowel Movements 0 ABP, PAP, CO, CI - Last Documented Arterial Blood Pressure 107/46 - Exam Gen. appearance the patient is calm comfortable sedated into bed on a mechanical ventilator. Orogastric and orotracheal tube are both in place. Head exam was generally normal. There was no scleral icterus or corneal arcus. Mucous membranes were moist. Neck examination reveals some JVDs especially on the right. The patient had a previous permacath in his right IJ that was removed and the incision site is dry clean and intact. No neck stiffness. No goiter or neck masses. Lungs sounds are diminished in the left lung base. Breath sounds are unequal and the patient has diminished breath on the left lung base. Few crackles on the right. Cardiac exam revealed the PMI to be normally situated and sized. The rhythm was regular and no extrasystoles were noted during several minutes of auscultation. The first and second heart sounds were normal and physiologic splitting of the second heart sound was noted. There were no murmurs, rubs, clicks, or gallops. Abdominal exam revealed normal bowel sounds. The abdomen was soft, non-tender, and without masses, organomegaly, or appreciable enlargement of the abdominal aorta. Examination of the extremities revealed easily palpable radial, femoral and pedal pulses. There was no cyanosis, clubbing or edema. The patient has a functioning AV fistula in the left upper extremity. Patient has chronic wounds on bilateral lower extremities, mostly dry scabbed over, nondraining wounds on the bilateral shins, patient has an amputated fifth metatarsal, with some open areas surrounding the amputation site Examination of the skin revealed no evidence of significant rashes, suspicious appearing nevi or other concerning lesions. Neurologically the patient sedated for now. - Labs CBC & Chem 7: 01/28/20 03:52 01/28/20 03:52 Labs: Abnormal Lab Results - Last 24 Hours (Table) 01/27/20 01/27/20 01/27/20 Range/Units 17:15 17:25 20:13 WBC (3.8-10.6) k/uL RBC (4.30-5.90) m/uL Hgb (13.0-17.5) gm/dL Hct (39.0-53.0) % MCV (80.0-100.0) fL MCHC (31.0-37.0) g/dL Neutrophils # (1.3-7.7) k/uL Basophils # (0-0.2) k/uL ABG pH (7.35-7.45) ABG pCO2 (35-45) mmHg ABG pO2 119 H (83-108) mmHg ABG O2 Saturation 99.4 H (94-97) % Sodium (137-145) mmol/L BUN (9-20) mg/dL Creatinine (0.66-1.25) mg/dL Glucose (74-99) mg/dL POC Glucose (mg/dL) 144 H 151 H (75-99) mg/dL 01/28/20 01/28/20 01/28/20 Range/Units 03:52 03:52 05:00 WBC 22.0 H (3.8-10.6) k/uL RBC 3.17 L (4.30-5.90) m/uL Hgb 10.1 L (13.0-17.5) gm/dL Hct 33.2 L (39.0-53.0) % MCV 104.7 H (80.0-100.0) fL MCHC 30.5 L (31.0-37.0) g/dL Neutrophils # 19.1 H (1.3-7.7) k/uL Basophils # 0.3 H (0-0.2) k/uL ABG pH 7.33 L (7.35-7.45) ABG pCO2 (35-45) mmHg ABG pO2 62 L (83-108) mmHg ABG O2 Saturation 90.1 L (94-97) % Sodium 136 L (137-145) mmol/L BUN 79 H (9-20) mg/dL Creatinine 6.66 H (0.66-1.25) mg/dL Glucose 134 H (74-99) mg/dL POC Glucose (mg/dL) (75-99) mg/dL 01/28/20 01/28/20 01/28/20 Range/Units 06:44 08:56 11:42 WBC (3.8-10.6) k/uL RBC (4.30-5.90) m/uL Hgb (13.0-17.5) gm/dL Hct (39.0-53.0) % MCV (80.0-100.0) fL MCHC (31.0-37.0) g/dL Neutrophils # (1.3-7.7) k/uL Basophils # (0-0.2) k/uL ABG pH 7.24 L 7.27 L (7.35-7.45) ABG pCO2 53 H 46 H (35-45) mmHg ABG pO2 75 L 231 H (83-108) mmHg ABG O2 Saturation 92.3 L 99.9 H (94-97) % Sodium (137-145) mmol/L BUN (9-20) mg/dL Creatinine (0.66-1.25) mg/dL Glucose (74-99) mg/dL POC Glucose (mg/dL) 139 H (75-99) mg/dL Microbiology - Last 24 Hours (Table) 01/27/20 10:56 Blood Culture Gram Stain - Preliminary Blood Blood Culture - Preliminary Presumptive Staph aureus 01/27/20 10:49 Blood Culture Gram Stain - Preliminary Blood Blood Culture - Preliminary Presumptive Staph aureus 01/25/20 15:49 Blood Culture Gram Stain - Final Blood Blood Culture - Final Staphylococcus aureus 01/27/20 16:45 Gram Stain - Preliminary Pleural Fluid Body Fluid Culture - Preliminary 01/27/20 10:56 Blood Culture - Final Blood 01/27/20 10:49 Blood Culture - Final Blood 01/27/20 16:45 Anaerobic Culture - Preliminary Pleural Fluid 01/27/20 16:45 Fungal Culture - Preliminary Pleural Fluid 01/27/20 16:45 Acid Fast Bacilli Culture - Preliminary Pleural Fluid 01/26/20 16:49 Catheter Tip Culture - Preliminary Catheter Tip Presumptive Staph aureus Assessment and Plan Plan: 1 septic shock secondary to staph aureus/MSSA and the patient has obviously line infection knowing that the permacath tip was positive for MSSA and the blood cultures have been persistently positive. The patient was initially on vancomycin, switched to Kefzol and subsequently switched to Unasyn and there is a possibility of an aspiration that occurred at time of intubation process 2 acute hypoxic respiratory failure secondary to above 3 acute hypotension secondary to sepsis currently on pressors 4 large left-sided pleural effusion post thoracentesis with evacuation of a 2.2 L of pleural fluid from the left 5 and stage renal disease currently on hemodialysis 3 times a week MW and the patient will undergo hemodialysis today. 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 The patient is currently on a pressure control mode of ventilation. Blood gases was noted. Chest x-ray was noted. IV Unasyn pharmacy to dose Stop the cefazolin perform an echo of the heart to assess for LV function based agitation proceed with hemodialysis today pressors for hemodynamic support and the patient is currently on norepinephrine infusion Propofol for sedation Continue ventilator support Nephrology consultation Condition is critical we'll continue to follow make further recommendations based on the progress. Evaluation was done and more than 30 minutes. Time with Patient: Greater than 30
--- NOTE | 2020-01-28 13:23 | P.PCN ---
Date of Procedure: 01/28/20 Preoperative Diagnosis: Septic shock Postoperative Diagnosis: Septic shock Procedure(s) Performed: 1 Intubation 2 insertion of a central line Anesthesia: local Surgeon: Zully Bustos Estimated Blood Loss (ml): 0 Condition: critical Disposition: ICU Operative Findings: Intubation: A time-out was completed verifying correct patient, procedure, site, positioning, and special equipment if applicable. The patient was placed in a flat position. Sedation was obtained using propofol . The patient was easily ventilated using an ambu bag. The MAC 4 BLADE was used and inserted into the oropharynx at which time there was a Grade 1 view of the vocal cords. A 8.0- yemeni endotracheal tube was inserted and visualized going through the vocal cords. The stylette was removed. Colorimetric change was visualized on the CO2 meter. Breath sounds were heard in both lung albarran equally. The endotracheal tube was placed at 23 cm, measured at the teeth. A chest x-ray was ordered to assess for pneumothorax and verify endotrachealtube placement. Estimated Blood Loss: 0 The patient tolerated the procedure well and there were no complications. Insertion of arterial line: Indication: Hemodynamic monitoring. A time-out was completed verifying correct patient, procedure, site, positioning, and implant(s) or special equipment if applicable. Allens test was performed to ensure adequate perfusion. The patient's right groin was prepped and draped in sterile fashion. 1% Lidocaine was used to anesthetize the area. An 18G Arrow arterial line was introduced into the femoral artery. The catheter was threaded over the guide wire and the needle w as removed with appropriate pulsatile blood return. Blood loss was minimal. The catheter was then sutured in place to the skin and a sterile dressing applied. Perfusion to the extremity distal to the point of catheter insertion was checked and found to be adequate. The patient tolerated the procedure well and there were no complications.
[2020-01-28 15:05] LABS: Glucose, BF Source Pleural Fluid; Glucose, Body Fluid 140 mg/dL; LDH, Body Fluid Source Pleural Fluid; Total Protein, Body Fluid 4200 mg/dL
[2020-01-28] MEDS: AMPICILLIN-SULBACTAM 3 GM in SODIUM CHLORIDE 0.9% 100 ML IVPB SCH (17:45)
[2020-01-28] MEDS ORDERED: VANCOMYCIN 1,750 MG in SODIUM CHLORIDE 0.9% 500 ML 500 ML IVPB ONE (18:00)
[2020-01-28 20:12] LABS: Glucose,Whole Blood 121 mg/dL (75-99)
[2020-01-28] MEDS: FAMOTIDINE 20 MG TAB PO SCH (20:51)
[2020-01-28] MEDS: FENOFIBRATE 160 MG TAB PO SCH (20:51)
[2020-01-29] MEDS ORDERED: SODIUM CHLORIDE 0.9% 150 ML with VASOPRESSIN 60 UNIT IV SCH ×2
--- NOTE | 2020-01-29 00:11 | P.PN ---
Subjective This is a pleasant 69 years old male who presents with left pleural effusion and pneumonia and legs cellulitis. He is end-stage renal disease on hemodialysis he was not followed up appropriately with his dialysis therapy. Also has blood culture was positive for staph aureus. Patient is currently he's undergoing hemodialysis per nephrology recommendations, as well as he is on IV Levaquin and renal dose as well as IV vancomycin pharmacy to dose. Repeat blood cultures been negative. This morning is still looks tired however he is appropriate to question regarding his current medical problem however he thinks he is at his home. He feels generally weak. He breathes quietly on chair and his legs are in dressing Resector to 90s on 3 L oxygen for nasal cannula. Pulmonary service are planning for thoracocentesis for history of pleural effusion. Infectious disease and vascular surgery team were consulted for his antibiotic therapy and for his cellulitis rule out any vascular causes. Echocardiogram is pending. 01/27/2020 Patient is still confused and a little bit worse compared to yesterday when I saw him, could be part of his acute delirium related to his metabolic encephalopathy from his sepsis section. However patient is awake and answered some questions appropriately. No tumor or seizure-like activity was noted. Blood pressure is stable today at 110/58, rest of Vitas looks stable. He is saturating 97% on 5 L oxygen via nasal cannula. He is known to have left large pleural effusion, pulmonary service on the case, probably no indication for thoracocentesis currently as patient is not in respiratory distress. His leukocytosis is worse today at 22.1K. Rest of his CBC is unremarkable. Blood culture from 01/23 showing MSSA. Yesterday he is dialysis catheter was taken off by vascular surgery team. And sent for culture which is pending now Patient is currently on IV vancomycin and Levaquin. We are going to stop that and switch him to cefazolin He's also been treated for bilateral leg cellulitis and wound care are on the case. Echocardiogram showed ejection fraction of 40-45% with hypokinesia, cardiology team is consulted. 01/28/2020 Patient got respiratory distress and tachypneic overnight and he was sent to the ICU for close monitoring, he underwent thoracocentesis ovalocyte with about 2.2 L of fluid has been aspirated. However patient developed more respiratory distress that could not be treated wi th BiPAP probably eventually this morning he got intubated. Also he needs pressors with Levophed. During the procedure he also vomited and aspirated. A kept on antibiotics IV vancomycin, but cefazolin was upgraded to Unasyn to cover and unaerobes as well as gram-negative bacteria and agree with that. Review of systems: N/a Active Medications Generic Name Dose Route Start Last Admin Trade Name Freq PRN Reason Stop Dose Admin Acetaminophen 650 mg 01/24/20 14:24 01/26/20 20:33 Acetaminophen Tab 325 Mg Tab PO 650 mg Q6HR PRN Administration Mild Pain or Fever > 100.5 Hydrocodone Bitart/Acetaminophen 1 each 01/24/20 21:25 01/27/20 03:20 Hydrocodone/Apap 5-325mg 1 Each Tab PO 1 each Q6HR PRN Administration Pain Alprazolam 0.25 mg 01/24/20 21:21 01/27/20 20:34 Alprazolam 0.25 Mg Tab PO 0.25 mg TID PRN Administration anxiety Aspirin 81 mg 01/25/20 09:00 01/27/20 08:51 Aspirin 81 Mg PO 81 mg DAILY [facility] Administration Ca Carbonate/Folic Ac/Mg Carbonate 3 each 01/25/20 07:30 01/28/20 09:10 Calcium Carb-Mag Carb-Folic 1 Each Tab PO Not Given BID-W/MEALS [facility] Calcium Acetate 667 mg 01/24/20 17:58 Calcium Acetate 667 Mg Tab PO DAILY PRN with snack Calcium Acetate 2,001 mg 01/25/20 07:30 01/28/20 09:10 Calcium Acetate 667 Mg Tab PO Not Given TID-W/MEALS [facility] Chlorhexidine Gluconate 15 ml 01/28/20 09:00 Chlorhexidine Gluconate 15 Ml Cup MUCOUS MEM BID [facility] Famotidine 20 mg 01/24/20 21:00 01/27/20 20:34 Famotidine 20 Mg Tab PO 20 mg HS [facility] Administration Fenofibrate 160 mg 01/24/20 22:00 01/27/20 20:34 Fenofibrate 160 Mg Tab PO 160 mg HS [facility] Administration Haloperidol Lactate 1 mg 01/28/20 05:11 01/28/20 05:18 Haloperidol Lactate 5 Mg/Ml 1 Ml Vial IVP 1 mg Q1HR PRN Administration Agitation or Acute Psychosis Heparin Sodium (Porcine) 5,000 unit 01/25/20 09:00 01/27/20 20:34 Heparin Sodium,Porcine 5,000 Unit/Ml 1 Ml Vial SQ 5,000 unit Q12HR [facility] Administration Propofol 1,000 mg/ IV Solution 100 mls @ 0 mls/hr 01/28/20 08:30 01/28/20 0 9:17 IV 40 mcg/kg/min .Q0M [facility] 24.12 mls/hr Administration Protocol Titrate Norepinephrine Bitartrate 32 250 mls @ 2.355 mls/hr 01/28/20 09:00 mg/ Sodium Chloride IV .Q24H [facility] Protocol 0.05 MCG/KG/MIN Ampicillin Sodium/Sulbactam 100 mls @ 200 mls/hr 01/28/20 10:00 Sodium 3 gm/ Sodium Chloride IVPB DAILY [facility] Insulin Aspart 0 unit 01/24/20 21:00 01/28/20 07:08 Insulin Aspart (Novolog) 100 Unit/Ml Vial SQ Not Given ACHS [facility] Protocol Levocarnitine 330 mg 01/25/20 07:30 01/28/20 09:10 Levocarnitine (With Sugar) 100 Mg/Ml Bottle PO Not Given TID-W/MEALS [facility] Metoprolol Tartrate 25 mg 01/25/20 21:00 01/27/20 20:37 Metoprolol Tartrate 25 Mg Tab PO 25 mg BID [facility] Administration Midodrine 10 mg 01/24/20 16:16 01/26/20 20:28 Midodrine 5 Mg Tab PO 10 mg AC-TID PRN Administration Hypotension Morphine Sulfate 2 mg 01/28/20 09:11 Morphine Sulfate 2 Mg/Ml Syringe IVP Q4H PRN Pain/Discomfort Multivit/Ca Carb/B Cmplx/FA/Prenat 1 each 01/25/20 09:00 01/27/20 08:51 Folic Acid-Vit B Complex-Vit C 1 Cap PO 1 each DAILY [facility] Administration Multivitamins/Minerals 1 each 01/25/20 09:00 01/27/20 08:51 Vit A,C & P-Fudhol-Knwgwkrm 1 Each Tab PO 1 each DAILY [facility] Administration Naloxone HCl 0.2 mg 01/24/20 14:24 Naloxone 0.4 Mg/Ml 1 Ml Vial IV Q2M PRN Opioid Reversal Ondansetron HCl 4 mg 01/24/20 18:07 Ondansetron 4 Mg Tab PO Q6HR PRN Nausea And Vomiting Pantoprazole Sodium 40 mg 01/25/20 07:30 01/28/20 09:11 Pantoprazole 40 Mg Tablet PO Not Given 729 [facility] Objective - Vital Signs Vital signs: Vital Signs Temp 98.2 F 01/28/20 00:00 Pulse 73 01/28/20 07:00 Resp 36 H 01/28/20 07:00 BP 101/52 01/28/20 07:00 Pulse Ox 96 01/28/20 07:00 Intake & Output 01/27/20 01/28/20 01/28/20 18:59 06:59 18:59 Intake Total 0 100 0 Output Total 0 0 Balance 0 100 0 Weight 100.5 kg Intake: IV 100 0 ceFAZolin 1,000 mg In 50 Sodium Chloride 0.9% 50 ml @ 100 mls/hr IVPB Q12HR [facility] Rx#:[id number] kvo 50 0 Oral 0 Output: Urine 0 0 Stool 0 Other: Voiding Method Incontinent Incontinent # Voids 0 # Bowel Movements 0 - Labs CBC & Chem 7: 01/28/20 03:52 01/28/20 03:52 Labs: Abnormal Lab Results - Last 24 Hours (Table) 01/27/20 01/27/20 01/27/20 Range/Units 11:41 17:15 17:25 WBC (3.8-10.6) k/uL RBC (4.30-5.90) m/uL Hgb (13.0-17.5) gm/dL Hct (39.0-53.0) % MCV (80.0-100.0) fL MCHC (31.0-37.0) g/dL Neutrophils # (1.3-7.7) k/uL Basophils # (0-0.2) k/uL ABG pH (7.35-7.45) ABG pCO2 (35-45) mmHg ABG pO2 119 H (83-108) mmHg ABG O2 Saturation 99.4 H (94-97) % Sodium (137-145) mmol/L BUN (9-20) mg/dL Creatinine (0.66-1.25) mg/dL Glucose (74-99) mg/dL POC Glucose (mg/dL) 158 H 144 H (75-99) mg/dL 01/27/20 01/28/2020 Range/Units 20:13 03:52 03:52 WBC 22.0 H (3.8-10.6) k/uL RBC 3.17 L (4.30-5.90) m/uL Hgb 10.1 L (13.0-17.5) gm/dL Hct 33.2 L (39.0-53.0) % MCV 104.7 H (80.0-100.0) fL MCHC 30.5 L (31.0-37.0) g/dL Neutrophils # 19.1 H (1.3-7.7) k/uL Basophils # 0.3 H (0-0.2) k/uL ABG pH (7.35-7.45) ABG pCO2 (35-45) mmHg ABG pO2 (83-108) mmHg ABG O2 Saturation (94-97) % Sodium 136 L (137-145) mmol/L BUN 79 H (9-20) mg/dL Creatinine 6.66 H (0.66-1.25) mg/dL Glucose 134 H (74-99) mg/dL POC Glucose (mg/dL) 151 H (75-99) mg/dL 01/28/20 01/28/20 01/28/20 Range/Units 05:00 06:44 08:56 WBC (3.8-10.6) k/uL RBC (4.30-5.90) m/uL Hgb (13.0-17.5) gm/dL Hct (39.0-53.0) % MCV (80.0-100.0) fL MCHC (31.0-37.0) g/dL Neutrophils # (1.3-7.7) k/uL Basophils # (0-0.2) k/uL ABG pH 7.33 L 7.24 L (7.35-7.45) ABG pCO2 53 H (35-45) mmHg ABG pO2 62 L 75 L (83-108) mmHg ABG O2 Saturation 90.1 L 92.3 L (94-97) % Sodium (137-145) mmol/L BUN (9-20) mg/dL Creatinine (0.66-1.25) mg/dL Glucose (74-99) mg/dL POC Glucose (mg/dL) 139 H (75-99) mg/dL Microbiology - Last 24 Hours (Table) 01/25/20 15:49 Blood Culture Gram Stain - Final Blood Blood Culture - Final Staphylococcus aureus 01/27/20 16:45 Gram Stain - Preliminary Pleural Fluid Body Fluid Culture - Preliminary 01/27/20 10:56 Blood Culture - Final Blood 01/27/20 10:49 Blood Culture - Final Blood 01/27/20 16:45 Anaerobic Culture - Preliminary Pleural Fluid 01/27/20 16:45 Fungal Culture - Preliminary Pleural Fluid 01/27/20 16:45 Acid Fast Bacilli Culture - Preliminary Pleural Fluid 01/26/20 16:49 Catheter Tip Culture - Preliminary Catheter Tip Presumptive Staph aureus Assessment and Plan Assessment: acute hypoxic respiratory failure needing mechanical ventilation Septic shock positive blood culture with staph MSSA bacteremia Bilateral leg cellulitis Metabolic encephalopathy, secondary to above Large left pleural effusion and pneumonia is felt less likely, no need for thoracocentesis per pulmonary services End-stage renal disease on hemodialysis Noncompliance with his dialysis therapy Cardiomyopathy with low ejection fraction 40-45%, asymptomatic Plan: This is a pleasant 69 years old male with end-stage renal disease on HD, presents with bilateral cellulitis and left pleural effusion with possible staff and the blood culture. Currently in septic shock. He is on mechanical ventilation and pulmonary/critical care team following the patient closely. Change antibiotics to Unasyn and IV vancomycin. Follow-up final culture results from the catheter Pulmonary and nephrology service R following the case. Infectious disease and vascular surgery were consulted. Continue with aspirin. Cardiology team were consulted for abnormal echo. Follow-up WBC and platelet count as well as blood pressure Labs and medication were reviewed.. Continue same treatment. Continue with symptomatic treatment. Resume home medication. Monitor lytes and vitals. DVT and GI prophylaxis. Further recommendationsas per clinical course of the patient DVT prophylaxis: Subcutaneous heparin GI Prophylaxis: Ppi PT/OT: Pending Prognosis is guarded
[2020-01-29] MEDS: NOREPINEPHRINE 8 MG in SODIUM CHLORIDE 0.9% 250 ML IV SCH ×2 (00:35→06:56)
[2020-01-29 04:07] LABS: HCT 33.3 % (39.0-53.0); HGB 10.3 gm/dL (13.0-17.5); Hypochromasia Marked; MCH 32.5 pg (25.0-35.0); MCHC 30.8 g/dL (31.0-37.0); MCV 105.8 fL (80.0-100.0); Macrocytosis Moderate; Mean Platelet Volume 9.2; Platelet Count 180 k/uL (150-450); RBC 3.15 m/uL (4.30-5.90); RDW 15.2 % (11.5-15.5)
[2020-01-29 04:31] LABS: Potassium 5.3 mmol/L (3.5-5.1)
[2020-01-29 04:53] LABS: ABG Base Excess -10.1 mmol/L; ABG HCO3 17 mmol/L (21-25); ABG Oxygen Saturation 96.8 % (94-97); ABG PCO2 37 mmHg (35-45); ABG PH 7.27 (7.35-7.45); ABG PO2 92 mmHg (83-108); ABG TCO2 18 mmol/L (19-24)
[2020-01-29 05:21] LABS: Band Neutrophils % 40 %; Eosinophils # (M) 0.26 k/uL (0-0.7); Lymphocytes # (M) 0.53 k/uL (1.0-4.8); Metamyelocytes # (M) 0.53 k/uL (0); Metamyelocytes % 2 %; Monocytes # (M) 0.79 k/uL (0-1.0); Neutrophils % (M) 52 %; Nucleated Red Blood Cells 8 /100 WBC (0-0); Total Cells Counted 200; WBC 26.4 k/uL (3.8-10.6)
[2020-01-29 05:25] LABS: Allen Test Performed? no
[2020-01-29 05:53] LABS: Anisocytosis (M) Present; Poikilocytosis (M) Present; Polychromasia Present; Tear Drop Cells Present; Toxic Granulation Present
[2020-01-29 07:06] VITALS: BP 126/55
[2020-01-29 07:22] LABS: Glucose,Whole Blood 211 mg/dL (75-99)
[2020-01-29] MEDS: PANTOPRAZOLE 40 MG TABLET PO SCH (07:25)
[2020-01-29] MEDS: CALCIUM ACETATE 667 MG TAB PO SCH ×3 (07:25→16:57)
[2020-01-29] MEDS: CALCIUM CARB-MAG CARB-FOLIC 1 EACH TAB PO SCH ×2 (07:25→16:58)
[2020-01-29] MEDS: INSULIN ASPART (NovoLOG) 100 UNIT/ML VIAL SQ SCH ×3 (07:25→16:58)
[2020-01-29] MEDS: levOCARNitine (WITH SUGAR) 100 MG/ML BOTTLE PO SCH ×3 (07:26→16:58)
[2020-01-29] MEDS: VIT A,C & E-LUTEIN-MINERALS 1 EACH TAB PO SCH (08:03)
[2020-01-29] MEDS: FOLIC ACID-VIT B COMPLEX-VIT C 1 CAP PO SCH (08:03)
[2020-01-29] MEDS: METOPROLOL TARTRATE 25 MG TAB PO SCH (08:03)
[2020-01-29] MEDS: CHLORHEXIDINE GLUCONATE 15 ML CUP MUCOUS MEM SCH (08:23)
[2020-01-29] MEDS: AMPICILLIN-SULBACTAM 3 GM in SODIUM CHLORIDE 0.9% 100 ML IVPB SCH (08:23)
[2020-01-29] MEDS: ASPIRIN 81 MG PO SCH (08:23)
[2020-01-29] MEDS: HEPARIN SODIUM,PORCINE 5,000 UNIT/ML 1 ML VIAL SQ SCH (08:23)
--- NOTE | 2020-01-29 09:28 | XR ---
EXAMINATION TYPE: XR chest 1V portable DATE OF EXAM: 01/29/2020 COMPARISON: Prior chest x-ray 01/28/2020 HISTORY: Intubated TECHNIQUE: frontal view of the chest is obtained on 2 images. FINDINGS: Endotracheal tube and orogastric tube are overlying appropriate positions. Pleural parench ymal changes are similar. Lung volumes are somewhat improved. No evident pneumothorax. Heart is obscu red. IMPRESSION: Correlate for pneumonia, edema, there is likely left pleural effusion.
[2020-01-29 09:48] VITALS: BMI 26.2
--- NOTE | 2020-01-29 10:15 | P.PN ---
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 Patient also has a history of vancomycin-resistant enterococcal infection. Cardiology was initially requested to do a consultation on the patient on the of this month that, because of cardiomyopathy. We were asked to re-see the patient today, to perform a transesophageal echocardiographic study because of persistent bacteremia. Patient had an echocardiogram with Doppler study performed on the , showed an ejection fraction of 40-45% with lateral hypokinesia posterior hypokinesis and anterior hypokinesia. Mild mitral regurg and mild tricuspid regurg, no pericardial effusion and a large pleural effusion. Patient was intubated yesterday by Dr. Bustos. Eligio to being intubated, patient did have a thoracentesis for a total of 2.2 L of fluid from the left lung, because he did not have any major improvement in his respiratory status he was ultimately intubated. Patient was seen and examined today in the intensive care unit, intubated on mechanical ventilation. Chest x-ray from today shows pneumonia, edema and likely left pleural effusion. Blood pressure 122/40 heart rate low 100s temperature 99.9. White blood cell count 26.4, hemoglobin 10.3, platelet count 180. Sodium 134, potassium 5.3, BUN 61 and creatinine 5.5. Blood cultures presumptive staph aureus. Patient is in atrial fibrillation. Patient continues to be on levo fed, vasopressin, and propofol. Objective - Vital Signs Vital signs: Vital Signs Temp 99.9 F H 01/29/20 08:00 Pulse 105 H 01/29/20 08:00 Resp 34 H 01/29/20 08:00 BP 126/55 01/29/20 07:00 Pulse Ox 98 01/29/20 08:00 Intake & Output 01/28/20 01/29/20 01/29/20 18:59 06:59 18:59 Intake Total 6089.379 1823.995 150 Output Total 0 0 0 Balance 7409.525 0656.995 150 Weight 95 kg 95 kg Intake: IV 1500 550 150 0.9 1500 550 150 Intake, IV Titration 813.032 1722.995 Amount Norepinephrine 8 mg In 896.165 Sodium Chloride 0.9% 250 ml @ 0.05 MCG/KG/MIN 9. 422 mls/hr IV .Q24H [facility] Rx#:[id number] propofoL 1,000 mg In 100.000 286.830 Empty Bag 1 bag @ Titrate IV .Q0M [facility] Rx#: [id number] Output: Urine 0 0 0 Stool 0 Hemodialysis 0 Other: Voiding Method Incontinent # Voids 0 ABP, PAP, CO, CI - Last Documented Arterial Blood Pressure 123/41 - Exam PHYSICAL EXAMINATION: GENERAL: Patient appears comfortable, intubated, on mechanical ventilation, sedated HEENT: Head is atraumatic, normocephalic. Pupils equal, round. Sclera anicteric. Conjunctiva are clear. Mucous membranes of the mouth are moist. Neck is supple. There is elevated jugular venous pressure. No carotid bruit is heard. HEART EXAMINATION: Heart S1 and S2 irregularly irregular CHEST EXAMINATION: Lungs are diminished in the left lung base, crackles heard bilaterally ABDOMEN: Soft, nontender. Bowel sounds are heard. No organomegaly noted. EXTREMITIES:[ 1+ peripheral pulses with no evidence of peripheral edema , functioning AV fistula in the left upper extremity. Patient has chronic wounds on bilateral lower extremities. NEUROLOGIC [patient is neurologically sedated - Labs CBC & Chem 7: 01/29/20 04:00 01/29/20 04:00 Labs: Abnormal Lab Results - Last 24 Hours (Table) 01/28/20 01/28/20 01/29/20 Range/Units 11:42 20:10 04:00 WBC 26.4 H (3.8-10.6) k/uL RBC 3.15 L (4.30-5.90) m/uL Hgb 10.3 L (13.0-17.5) gm/dL Hct 33.3 L (39.0-53.0) % MCV 105.8 H (80.0-100.0) fL MCHC 30.8 L (31.0-37.0) g/dL Neutrophils # (Manual) 24.20 H (1.3-7.7) k/uL Lymphocytes # (Manual) 0.53 L (1.0-4.8) k/uL Metamyelocytes # (Man) 0.53 H (0) k/uL Nucleated RBCs 8 H (0-0) /100 WBC ABG pH 7.27 L (7.35-7.45) ABG pCO2 46 H (35-45) mmHg ABG pO2 231 H (83-108) mmHg ABG HCO3 (21-25) mmol/L ABG Total CO2 (19-24) mmol/L ABG O2 Saturation 99.9 H (94-97) % Sodium (137-145) mmol/L Potassium (3.5-5.1) mmol/L Carbon Dioxide (22-30) mmol/L BUN (9-20) mg/dL Creatinine (0.66-1.25) mg/dL Glucose (74-99) mg/dL POC Glucose (mg/dL) 121 H (75-99) mg/dL Calcium (8.4-10.2) mg/dL 01/29/20 01/29/20 01/29/20 Range/Units 04:00 04:52 07:19 WBC (3.8-10.6) k/uL RBC (4.30-5.90) m/uL Hgb (13.0-17.5) gm/dL Hct (39.0-53.0) % MCV (80.0-100.0) fL MCHC (31.0-37.0) g/dL Neutrophils # (Manual) (1.3-7.7) k/uL Lymphocytes # (Manual) (1.0-4.8) k/uL Metamyelocytes # (Man) (0) k/uL Nucleated RBCs (0-0) /100 WBC ABG pH 7.27 L (7.35-7.45) ABG pCO2 (35-45) mmHg ABG pO2 (83-108) mmHg ABG HCO3 17 L (21-25) mmol/L ABG Total CO2 18 L (19-24) mmol/L ABG O2 Saturation (94-97) % Sodium 134 L (137-145) mmol/L Potassium 5.3 H (3.5-5.1) mmol/L Carbon Dioxide 15 L (22-30) mmol/L BUN 61 H (9-20) mg/dL Creatinine 5.56 H (0.66-1.25) mg/dL Glucose 188 H (74-99) mg/dL POC Glucose (mg/dL) 211 H (75-99) mg/dL Calcium 8.0 L (8.4-10.2) mg/dL Microbiology - Last 24 Hours (Table) 01/28/20 10:00 Gram Stain - Preliminary Sputum Sputum Culture - Preliminary 01/26/20 16:49 Catheter Tip Culture - Final Catheter Tip Staphylococcus aureus 01/27/20 16:45 Gram Stain - Preliminary Pleural Fluid Body Fluid Culture - Preliminary 01/27/20 16:45 Acid Fast Bacilli Smear - Final Pleural Fluid Acid Fast Bacilli Culture - Preliminary 01/27/20 10:56 Blood Culture Gram Stain - Preliminary Blood Blood Culture - Preliminary Presumptive Staph aureus 01/27/20 10:49 Blood Culture Gram Stain - Preliminary Blood Blood Culture - Preliminary Presumptive Staph aureus Assessment and Plan Plan: Assessment and plan #1 septic shock, secondary to staph aureus/MSSA, blood cultures persistently positive. 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 Louis to rule out vegetation. Further recommendations to follow. DNP note has been reviewed, I agree with a documented findings and plan of care. Patient was seen and examined.
[2020-01-29 11:39] LABS: Glucose,Whole Blood 200 mg/dL (75-99)
--- NOTE | 2020-01-29 11:41 | PN ---
PROGRESS NOTE Patient is seen for followup for end-stage renal disease. He is currently maintained on maximum doses of Levophed and vasopressin. Patient's blood pressure is staying about 113-120 mmHg. He ran for 2 hours on hemodialysis yesterday with significant drop blood pressure during treatment. Therefore, patient was taken off. He remains on the vent, FiO2 at 55%. I did discuss with his regarding his general condition and significant hypotension requiring large doses of pressors and the fact that he is not tolerating dialysis. And at this time, she states that she does not want to continue with aggressive medical care and she will be coming in today and will make the final decision for comfort care measures. PHYSICAL EXAMINATION: On examination today, blood pressure is 123/41, heart rate 105 per minute, temperature 99.9. Examination of the heart S1, S2. Examination of the lungs, bilateral breath sounds are heard. Patient is on the vent. He is sedated. Examination of the lower extremities, bilateral extremities are wrapped. Abdomen is soft, nontender. LABS: Show potassium 5.3, CO2 is 15, sodium 134 and hemoglobin 10.3. ASSESSMENT: 1. End-stage renal disease, on hemodialysis on a Sunday, Sunday, Sunday schedule. 2. Sepsis with septic shock, maintained on max dose of pressors. 3. Acute hypoxic respiratory failure secondary to sepsis. 4. MSSA bacteremia with an infected PermCath, status post removal of PermCath. Patient is status post vancomycin, maintained on Kefzol and Unasyn as there was aspiration during intubation. 5. Chronic right foot ulcer with previous history of MRSA from the wound. 6. History of endocarditis. 7. Generalized debility. 8. Malfunctioning AV fistula with bleeding, post treatment and therefore the PermCath was placed in anticipation for further intervention on the access. The PermCath is removed now secondary to bacteremia and we did use his AV fistula yesterday and patient tolerated his treatment fairly well with 17-gauge needles. PLAN: I did discuss with his . Will hold off on hemodialysis today and we will plan for hospice. We will plan for possible comfort care measures either today or tomorrow. Continue with antibiotics in the meantime, MMODL / IJN: [id number] /
--- NOTE | 2020-01-29 13:41 | P.PN ---
Subjective Progress Note Date: 01/29/20 On 01/28/2020, the patient is in the intensive care units for septic shock, altered mentation, decompensated respiratory failure that occurred yesterday. The patient a chest to the intensive care unit yesterday afternoon and I performed a thoracentesis and I reviewed with a total of 2.2 L of fluid from the left lung. The patient did not have any major improvement in respiratory status continued to be quite short of breath and overnight and earlier this morning the patient decompensated further. A repeat chest x-ray was done and showed a readmission of a large left-sided pleural effusion and some increased marking on the right. The patient was placed on a BiPAP and he was still struggling with and ventilation high respiratory rate. Based on that, it was decided to intubate this patient early this morning. Intubation was done in the intensive care unit. The patient was given propofol. During the intubation process, the patient had a large volume emesis and possibly some aspiration. We secured airway. Post intubation, the patient became hypotensive. At this point in time, the patient is upper vulvar running at 40 mg per KG per minute. The patient is also on norepinephrine infusion and the dose being titrated and currently is running at 0.15 mg per KG per minute. The patient is in atrial fibrillation. The patient is currently intubated on a mechanical ventilator. I checked on the patient on multiple occasions and ultimately I switched him to a pressure control mode of ventilation and the most recent pressure control settings is at a pressure of 25 cm of water with an FiO2 of 100% and a PEEP of 10 and the respiratory rate of 26. The subsequent blood gases showed a pH of 7.27 with a pCO2 of 46 and pO2 of 231 nothing should be able to gradually wean off the FiO2 and bring down the PEEP. The chest x-ray post intubation showed adequate positioning of the ET tube. NG tube is in place. The patient has a large left-sided pleural effusion again noted on today's chest x-ray. The patient has persistent bacteremia with MSSA. The patient was switched to IV Solu and I subsequently switched him to IV Unasyn knowing that the patient could have had aspiration at a time of the intubation process. The patient otherwise is producing minimal amount of urine output. The patient will need hemodialysis. I discussed the case with nephrology and the patient will be acc essed through his AV fistula in the left upper extremity. In December was also inserted during the process in the right femoral artery. The patient will also need an echocardiogram to rule out any valvular vegetation. Cardiology was made aware. The white cell count was at 22.0. Hemoglobin is at 10.1. Currently the patient sedated with propofol and is calm and comfortable. He is a full was st atus according to the . 01/29/2020, the patient is being seen for a follow-up. The patient is currently intubated on a mechanical ventilator. As stated earlier, the patient with septic shock and he got transferred to the intensive care unit where he was intubated and mechanically ventilated. Post intubation, the patient had an aspiration and currently the patient on IV Unasyn covering for a staphylococcal sepsis/MSSA sepsis/line infection in addition to an aspiration pneumonia. This morning, the patient remains sedated, comfortable. The patient on propofol which is running at 50 mg per KG per minute. The patient is on assist control mode of ventilation. Currently the patient is on a pressure control mode of ventilation with a pressure control of 25 cm of water with an FiO2 of 50% and a PEEP of 10 and the respiratory rate of 26. The chest x-ray from today shows a moderate to large left-sided pleural effusion and infiltration of the lung bases more so on the right. The patient has noted some improvement in the lung volumes. The blood gases showed a pH of 7.27 with a pCO2 of 37 and pO2 of 97. The patient underwent a session of hemodialysis yesterday. He remains on p ressors and is levo fed infusion currently is running at 22 mg per minute and the patient is also on vasopressin at 0.03 units an hour and the patient is also on normal saline at rate of 50 mL an hour. We have requested a KARRIE to be done by cardiology regarding the possibility of endocarditis. The white cell count is at 26. BUN is 61 with a creatinine of 5.5. The serum bicarbonate is 15. Objective - Vital Signs Vital signs: Vital Signs Temp 99.9 F H 01/29/20 08:00 Pulse 105 H 01/29/20 08:00 Resp 34 H 01/29/20 08:00 BP 126/55 01/29/20 07:00 Pulse Ox 98 01/29/20 08:00 Intake & Output 01/28/20 01/29/20 01/29/20 18:59 06:59 18:59 Intake Total 6493.091 4590.995 150 Output Total 0 0 0 Balance 9352.870 3455.995 150 Weight 95 kg 95 kg Intake: IV 1500 550 150 0.9 1500 550 150 Intake, IV Titration 995.807 2797.995 Amount Norepinephrine 8 mg In 896.165 Sodium Chloride 0.9% 250 ml @ 0.05 MCG/KG/MIN 9. 422 mls/hr IV .Q24H [facility] Rx#:[id number] propofoL 1,000 mg In 100.000 286.830 Empty Bag 1 bag @ Titrate IV .Q0M [facility] Rx#: [id number] Output: Urine 0 0 0 Stool 0 Hemodialysis 0 Other: Voiding Method Incontinent # Voids 0 ABP, PAP, CO, CI - Last Documented Arterial Blood Pressure 123/41 - Exam Gen. appearance the patient is calm comfortable sedated into bed on a mechanical ventilator. Orogastric and orotracheal tube are both in place., The patient is currently sedated with propofol and patient is calm comfortable since a mechanical ventilator on a pressure control mode of ventilation. Head exam was generally normal. There was no scleral icterus or corneal arcus. Mucous membranes were moist. Neck examination reveals some JVDs especially on the right. The patient had a previous permacath in his right IJ that was removed and the incision site is dry clean and intact. No neck stiffness. No goiter or neck masses. Lungs sounds are diminished in the left lung base. Breath sounds are unequal and the patient has diminished breath on the left lung base. Few crackles on the right. Cardiac exam revealed the PMI to be normally situated and sized. The rhythm was regular and no extrasystoles were noted during several minutes of auscultation. The first and second heart sounds were normal and physiologic splitting of the second heart sound was noted. There were no murmurs, rubs, clicks, or gallops. Abdominal exam revealed normal bowel sounds. The abdomen was soft, non-tender, and without masses, organomegaly, or appreciable enlargement of the abdominal aorta. Examination of the extremities revealed easily palpable radial, femoral and pedal pulses. There was no cyanosis, clubbing or edema. The patient has a functioning AV fistula in the left upper extremity. Patient has chronic wounds on bilateral lower extremities, mostly dry scabbed over, nondraining wounds on the bilateral shins, patient has an amputated fifth metatarsal, with some open areas surrounding the amputation site Examination of the skin revealed no evidence of significant rashes, suspicious appearing nevi or other concerning lesions. Neurologically the patient sedated for now. - Labs CBC & Chem 7: 01/29/20 04:00 01/29/20 04:00 Labs: Abnormal Lab Results - Last 24 Hours (Table) 01/28/20 01/29/20 01/29/20 Range/Units 20:10 04:00 04:00 WBC 26.4 H (3.8-10.6) k/uL RBC 3.15 L (4.30-5.90) m/uL Hgb 10.3 L (13.0-17.5) gm/dL Hct 33.3 L (39.0-53.0) % MCV 105.8 H (80.0-100.0) fL MCHC 30.8 L (31.0-37.0) g/dL Neutrophils # (Manual) 24.20 H (1.3-7.7) k/uL Lymphocytes # (Manual) 0.53 L (1.0-4.8) k/uL Metamyelocytes # (Man) 0.53 H (0) k/uL Nucleated RBCs 8 H (0-0) /100 WBC ABG pH (7.35-7.45) ABG HCO3 (21-25) mmol/L ABG Total CO2 (19-24) mmol/L Sodium 134 L (137-145) mmol/L Potassium 5.3 H (3.5-5.1) mmol/L Carbon Dioxide 15 L (22-30) mmol/L BUN 61 H (9-20) mg/dL Creatinine 5.56 H (0.66-1.25) mg/dL Glucose 188 H (74-99) mg/dL POC Glucose (mg/dL) 121 H (75-99) mg/dL Calcium 8.0 L (8.4-10.2) mg/dL 01/29/20 01/29/20 01/29/20 Range/Units 04:52 07:19 11:38 WBC (3.8-10.6) k/uL RBC (4.30-5.90) m/uL Hgb (13.0-17.5) gm/dL Hct (39.0-53.0) % MCV (80.0-100.0) fL MCHC (31.0-37.0) g/dL Neutrophils # (Manual) (1.3-7.7) k/uL Lymphocytes # (Manual) (1.0-4.8) k/uL Metamyelocytes # (Man) (0) k/uL Nucleated RBCs (0-0) /100 WBC ABG pH 7.27 L (7.35-7.45) ABG HCO3 17 L (21-25) mmol/L ABG Total CO2 18 L (19-24) mmol/L Sodium (137-145) mmol/L Potassium (3.5-5.1) mmol/L Carbon Dioxide (22-30) mmol/L BUN (9-20) mg/dL Creatinine (0.66-1.25) mg/dL Glucose (74-99) mg/dL POC Glucose (mg/dL) 211 H 200 H (75-99) mg/dL Calcium (8.4-10.2) mg/dL Microbiology - Last 24 Hours (Table) 01/28/20 10:00 Gram Stain - Preliminary Sputum Sputum Culture - Preliminary 01/26/20 16:49 Catheter Tip Culture - Final Catheter Tip Staphylococcus aureus 01/27/20 16:45 Gram Stain - Preliminary Pleural Fluid Body Fluid Culture - Preliminary 01/27/20 16:45 Acid Fast Bacilli Smear - Final Pleural Fluid Acid Fast Bacilli Culture - Preliminary 01/27/20 10:56 Blood Culture Gram Stain - Preliminary Blood Blood Culture - Preliminary Presumptive Staph aureus 01/27/20 10:49 Blood Culture Gram Stain - Preliminary Blood Blood Culture - Preliminary Presumptive Staph aureus Assessment and Plan Plan: 1 septic shock secondary to staph aureus/MSSA and the patient has obviously line infection knowing that the permacath tip was positive for MSSA and the blood cultures have been persistently positive. The patient had blood cultures positive from 1024, 1025, and 1027 and the patient showed persistent bacteremia. Repeat blood cultures will be sent today. KARRIE will be requested to rule out underlying endocarditis. The patient is currently on IV Unasyn covering for MSSA bacteremia and possible aspiration pneumonia. Patient is quite hypotensive and septic shock requiring a combination of vasopressin and norepinephrine infusion for blood pressure control. Pressor requirements are quite extensive. 2 acute hypoxic respiratory failure secondary to above, currently intubated on a mechanical ventilator. Chest x-ray showing bilateral pulmonary infiltrates and there may be also a component of pulmonary edema. 3 acute hypotension secondary to sepsis currently on pressors and the patient is receiving a combination of norepinephrine infusion and vasopressin. 4 large left-sided pleural effusion post thoracentesis with evacuation of a 2.2 L of pleural fluid from the left 5 End stage renal disease currently on hemodialysis 3 times a week MWF and the patient will undergo hemodialysis today. The permacath was infected and this was removed. 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 Blood gases was noted. Chest x-ray was noted. IV Unasyn pharmacy to dose Repeat blood cultures KARRIE may be useful to rule out the possibility of endocarditis Hemodialysis performed yesterday none for today pressors for hemodynamic support and the patient is currently on norepinephrine infusion and vasopressin infusion. Pressor requirements are quite high and the patient is lying on a higher dose of norepinephrine infusion for now. Propofol for sedation Condition is critical we'll continue to follow make further recommendations based on the progress. The family is to arrive to the hospital for further discussion regarding goals of treatment and poor outcome. I think overall outcome is 4 based on the comorbidities. May consider comfort care measures the patient's family is agreeable. Meanwhile, we'll going to continue our supportive care for now. Repeat cultures were sent. Possible KARRIE over the next 24 hours. Evaluation was done and more than 30 minutes. Time with Patient: Greater than 30
[2020-01-29] MEDS ORDERED: MORPHINE SULFATE 2 MG/ML SYRINGE IV PRN (16:28)
[2020-01-29] MEDS ORDERED: MORPHINE SULFATE 4 MG/ML SYRINGE IV PRN (16:28)
[2020-01-29] MEDS ORDERED: ATROPINE OPHTH SOLN 1% 5ML BTL SUBLINGUAL PRN (16:28)
[2020-01-29] MEDS ORDERED: LORazepam 2 MG/ML INJ IV STA (16:34)
[2020-01-29 17:08] VITALS: PULSE 88; RESP 44; TEMP 99
[2020-01-29] MEDS ORDERED: MORPHINE SULFATE (100 MG/2 ML) 100 MG in SODIUM CHLORIDE 0.9% 100 ML IV SCH (17:45)
--- NOTE | 2020-01-29 22:20 | P.DS ---
Providers Date of admission: 01/24/20 14:24 Attending physician: Adan Arnold Consults: 01/24/20 14:25 Consult Physician Routine Consulting Provider: Janette Greenberg Consult Reason/Comments: crf Do you want consulting provider notified?: Yes Consult Physician Urgent Consulting Provider: Zully Bustos Consult Reason/Comments: sepsis, pleural effusion Do you want consulting provider notified?: Yes 01/24/20 14:26 Consult Physician Urgent Consulting Provider: Whitney Hodges Consult Reason/Comments: sepsis, leg wounds Do you want consulting provider notified?: Yes 01/24/20 14:39 Consult Physician Routine Consulting Provider: Criselda Arguelles Consult Reason/Comments: chronic foot issues Do you want consulting provider notified?: Yes 01/26/20 10:36 Consult Physician Urgent Consulting Provider: Dawson Griffith Consult Reason/Comments: dialysis catheter removal Do you want consulting provider notified?: Yes 01/26/20 19:30 Consult Physician Routine Consulting Provider: Ricardo Garnica Consult Reason/Comments: cardiomyopathy ef 40-45 % with hypokinesia Do you want consulting provider notified?: Yes 01/29/20 09:49 Consult Physician Routine Consulting Provider: [facility] Consult Reason/Comments: KARRIE Do you want consulting provider notified?: Already Contacted 01/29/20 09:59 Consult Physician Routine Consulting Provider: Benny Kaufman Consult Reason/Comments: KARRIE Do you want consulting provider notified?: Already Contacted Primary care physician: Nell Rosen Hospital Course: Diagnoses: acute hypoxic respiratory failure needing mechanical ventilation Septic shock positive blood culture with staph MSSA bacteremia Bilateral leg cellulitis Metabolic encephalopathy, secondary to above Large left pleural effusion and pneumonia is felt less likely, no need for thoracocentesis per pulmonary services End-stage renal disease on hemodialysis Noncompliance with his dialysis therapy Cardiomyopathy with low ejection fraction 40-45%, asymptomatic Hospital course: This is a 69 years old male who presents with left pleural effusion and pneumonia and legs cellulitis. He is end-stage renal disease on hemodialysis he was not followed up appropriately with his dialysis therapy. Also has blood culture was positive for staph aureus. Cultures results showed MSSA, patient was treated initially with broad-spectrum antibiotics with IV vancomycin and Levaquin, R on cefazolin is provided and Unasyn as well. Patient is followed closely by several consultants including pulmonary/critical care team, nephrology team, vascular surgery team.. Patient is treated with broad-spectrum antibiotics as above however he continued to deteriorate, and he went to the ICU where he developed septic shock and respiratory failure and mechanical ventilation, this morning patient needed high dose NOREPINEPHRINE at 0.45 as well as vasopressin, also he was hypoxic, hypotensive and tachypneic and tachycardic. Bacterial endocarditis is suspected, cardiology team were planning on doing KARRIE however Patient general condition Deteriorated despite several consultants and multiple medical therapies and regimens. Eventually decided to make the patient comfort care. Patient thereafter shortly Physical exam in the ICU prior to expiration -GENERAL: The patient is intubated and sedated in the ICU HEENT: Pupils are round and equally reacting to light. EOMI. No scleral icterus. No conjunctival pallor. Normocephalic, atraumatic. No pharyngeal erythema. No thyromegaly. CARDIOVASCULAR: S1 and S2 present. No murmurs, rubs, or gallops. PULMONARY: Chest is clear to auscultation, no wheezing or crackles. ABDOMEN: Soft, nontender, nondistended, normoactive bowel sounds. No palpable organomegaly. MUSCULOSKELETAL: No joint swelling or deformity. -EXTREMITIES: No cyanosis, clubbing, or pedal edema. Bilateral lower extremity cellulitis -NEUROLOGICAL: Limited by the patient condition SKIN: No rashes. no petechiae. Patient Condition at Discharge: Serious Plan - Discharge Summary New Discharge Prescriptions: No Action NIFEdipine [NIFEdipine ER] 60 mg PO DAILY Etanercept [Enbrel] 50 mg SQ LUU gemfibroziL [Lopid] 600 mg PO BID Aspirin EC [Ecotrin Low Dose] 81 mg PO DAILY Omeprazole 40 mg PO DAILY Metoprolol Tartrate [Lopressor] 50 mg PO BID Calcium Acetate [PhosLo] 2,001 mg PO TID-W/MEALS Magnebind 250/300mg 3 tab PO BID-W/MEALS Prorenal + D 1 tab PO DAILY levOCARNitine [Levocarnitine] 330 mg PO TID-W/MEALS Calcium Acetate [PhosLo] 667 mg PO DAILY PRN PRN Reason: with snack Furosemide [Lasix] 40 mg PO BID Vit C/E/Zn/Coppr/Lutein/Zeaxan [Preservision Areds 2 Softgel] 1 cap PO DAILY Acetaminophen Tab [Tylenol] 650 mg PO Q6HR PRN tab PRN Reason: Mild Pain Or Fever > 100.5 ALPRAZolam [Xanax] 0.25 mg PO TID PRN 3 Days #9 tab PRN Reason: anxiety INSULIN ASPART (NovoLOG) [NovoLOG (formulary)] See Protocol SQ ACHS Discharge Medication List Etanercept [Enbrel] 50 mg SQ LUU 06/12/14 [History] NIFEdipine [NIFEdipine ER] 60 mg PO DAILY 06/12/14 [History] Aspirin EC [Ecotrin Low Dose] 81 mg PO DAILY 07/31/18 [History] gemfibroziL [Lopid] 600 mg PO BID 07/31/18 [History] Calcium Acetate [PhosLo] 2,001 mg PO TID-W/MEALS 02/26/19 [History] Magnebind 250/300mg 3 tab PO BID-W/MEALS 02/26/19 [History] Metoprolol Tartrate [Lopressor] 50 mg PO BID 02/26/19 [History] Omeprazole 40 mg PO DAILY 02/26/19 [History] Prorenal + D 1 tab PO DAILY 02/26/19 [History] levOCARNitine [Levocarnitine] 330 mg PO TID-W/MEALS 06/27/19 [History] Calcium Acetate [PhosLo] 667 mg PO DAILY PRN 08/20/19 [History] Furosemide [Lasix] 40 mg PO BID 08/20/19 [History] Vit C/E/Zn/Coppr/Lutein/Zeaxan [Preservision Areds 2 Softgel] 1 cap PO DAILY 08/20/19 [History] Acetaminophen Tab [Tylenol] 650 mg PO Q6HR PRN tab 11/10/19 [Rx] ALPRAZolam [Xanax] 0.25 mg PO TID PRN 3 Days #9 tab 11/11/19 [Rx] INSULIN ASPART (NovoLOG) [NovoLOG (formulary)] See Protocol SQ ACHS 01/24/20 [History] Follow up Appointment(s)/Referral(s): Nell Rosen MD [Primary Care Provider] - 1-2 days Discharge Disposition: - Preliminary Cause of Preliminary Cause of : septic shock
--- NOTE | 2020-02-08 09:00 | CDI ---
Documentation Clarification Form Mortality review Date: 02/08/2020 08:56:28 AM From: Sherri Cuevas RN, CCDS Admit Date: 01/24/2020 02:24:00 PM Patient Name: Grzegorz Palma Visit Number: [id number] Discharge Date: 01/29/2020 09:15:00 PM ATTENTION: The Clinical Documentation Specialists (CDI) and [facility] Coding Staff appreciate your assistance in clarifying documentation. Please respond to the clarification below the line at the bottom and electronically sign. The CDI & [facility] Coding staff will review the response and follow-up if needed. Please note: Queries are made part of the Legal Health Record. If you have any questions, please contact the author of this message via ITS. Dr. Shen Bacterial Pneumonia, possibly Gram Negative Pneumonia was documented in response to a CDI Query on 01/24 and requires clairifiction of conflicting information documented by proceeding Attending provider. History/Risk Factors: Pneumonia, Asthma, RA, DM2, ESRD on HD, CHF, Metabolic encephalopathy and sepsis this admission Clinical Indicators: 01/23 H&P (DR. Dowd): "Possible acute bilateral pneumonia, right more the left with possible sepsis, present on admission.Covid-19 is negative." 02/26 Attending Progress Note (DR. Shen): "Large left pleural effusion and pneumonia is felt less likely, no need for thoracocentesis per pulmonary services." 01/23 1100 Admission Vital signs: temp 100.6, HR 83, RR 20, b/p 124/64, spo2 98% 3l NC 01/23-01/24 WBC:14.7/15.6 Left shift: 13.6/13.9 Lactic Acid 5.2 01/23 CXR: "Large left pleural effusion, with rightward mediastinal shift." 01/23 H&P Lung/Breathing assessment: "RESPIRATORY: Breath sounds diminished in the bases. A few scattered rhonchi and crackles. Treatment: Antibiotics: 01/23 Daptomycin 500 mg IVPB Q 48 hrs, 01/23 Levaquin 500 mg IVPB Q 24 hrs, IV Vancomycin PTD O2: maintained at 2-5L NC Breathing Tx: none ordered In order to capture the severity of condition, please clarify if the condition signifies and you are treating for: Gram negative Pneumonia treated and resolved Gram negative Pneumonia ruled out after further study Other, please specify Unable to determine (Last Revision: July 2017) possibly pt had pneumonia MTDD
--- NOTE | 2020-02-08 09:12 | CDI ---
Documentation Clarification Form Date: 02/08/2020 09:10:00 AM From: Sherri Cuevas RN, CCDS Admit Date: 01/24/2020 02:24:00 PM Patient Name: Grzegorz Palma Visit Number: [id number] Discharge Date: 01/29/2020 09:15:00 PM ATTENTION: The Clinical Documentation Specialists (CDI) and [facility] Coding Staff appreciate your assistance in clarifying documentation. Please respond to the clarification below the line at the bottom and electronically sign. The CDI & [facility] Coding staff will review the response and follow-up if needed. Please note: Queries are made part of the Legal Health Record. If you have any questions, please contact the author of this message via ITS. Dr. Finnegan E Ac Diabetes and cellulitis of bilateral lower extremities is documented in the H&P, Progress notes and D/C Summary. if there is a cause and effect relationship the diagnosis requires further specificity. History/risk factors: chronic neuropathy in toes/bilateral feet and left leg, bilateral lower leg edema, cellulitis bilateral lower legs, bilateral leg/foot wounds/sees Dr. 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
--- NOTE | 2020-02-08 09:22 | CDI ---
Documentation Clarification Form Date: 02/08/2020 09:14:17 AM From: Sherri Cuevas RN, CCDS Admit Date: 01/24/2020 02:24:00 PM Patient Name: Grzegorz Palma Visit Number: [id number] Discharge Date: 01/29/2020 09:15:00 PM ATTENTION: The Clinical Documentation Specialists (CDI) and [facility] Coding Staff appreciate your assistance in clarifying documentation. Please respond to the clarification below the line at the bottom and electronically sign. The CDI & [facility] Coding staff will review the response and follow-up if needed. Please note: Queries are made part of the Legal Health Record. If you have any questions, please contact the author of this message via ITS. Dr. Zully Bustos "Patient has chronic wounds o n bilateral lower extremities, mostly dry scabbed over, nondraining wounds on the bilateral shins," is documented in the 02/25- 02/28 pulmonary progress notes and requires further specificity. . 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 Treatment: Iv Vanco PTD IV Levaquin No documented wound care by Nursing In your professional opinion, can the etiology and severity of the wound be further specified as one of the following? Etiology: Non-pressure chronic ulcer due to diabetes Non-pressure chronic ulcer due to arterial insufficiency Non-pressure chronic ulcer due to venous insufficiency Non-pressure chronic ulcer due to trauma Other, Please specify Unable to determine Severity: Limited to breakdown of skin With fat layer exposed With necrosis of muscle With necrosis of bone Other, Please specify Unable to determine (Last Revision: December 2016) Other, Please specify MTDD
== END 2020-01-29 21:15 | disposition expired | DRG 314 ==
LOC: EC 10:59 → 3SCARD 14:24 → 2SICU 01-27 17:18
PROVIDERS: ADMIT Internal Medicine; ATTEND Internal Medicine
PROC: 06HY33Z Insertion of Infusion Device into Lower Vein, Percutaneous Approach (ICD-10-PCS; 2020-01-24)
PROC: 05PYX3Z Removal of Infusion Device from Upper Vein, External Approach (ICD-10-PCS; 2020-01-26)
PROC: 0W9B3ZZ Drainage of Left Pleural Cavity, Percutaneous Approach (ICD-10-PCS; 2020-01-27)
PROC: 5A1945Z Respiratory Ventilation, 24-96 Consecutive Hours (ICD-10-PCS; principal; 2020-01-28)
PROC: 0BH17EZ Insertion of Endotracheal Airway into Trachea, Via Natural or Artificial Opening (ICD-10-PCS; principal; 2020-01-28)
PROC: 5A09357 Assistance with Respiratory Ventilation, Less than 24 Consecutive Hours, Continuous Positive Airway Pressure (ICD-10-PCS; 2020-01-28)
PROC: 04HY32Z Insertion of Monitoring Device into Lower Artery, Percutaneous Approach (ICD-10-PCS; 2020-01-28)
PROC: 3E033XZ Introduction of Vasopressor into Peripheral Vein, Percutaneous Approach (ICD-10-PCS; 2020-01-28)
PROC: 0DH67UZ Insertion of Feeding Device into Stomach, Via Natural or Artificial Opening (ICD-10-PCS; 2020-01-28)
DX: T80.211A Bloodstream infection due to central venous catheter, initial encounter (principal); L89.893 Pressure ulcer of other site, stage 3; A41.01 Sepsis due to Methicillin susceptible Staphylococcus aureus; R65.21 Severe sepsis with septic shock; G93.41 Metabolic encephalopathy; I33.0 Acute and subacute infective endocarditis; J69.0 Pneumonitis due to inhalation of food and vomit; J96.01 Acute respiratory failure with hypoxia; N18.6 End stage renal disease; J15.6 Pneumonia due to other Gram-negative bacteria; E87.1 Hypo-osmolality and hyponatremia; I13.2 Hypertensive heart and chronic kidney disease with heart failure and with stage 5 chronic kidney disease, or end stage renal disease; I42.9 Cardiomyopathy, unspecified; I48.19 Other persistent atrial fibrillation; I50.22 Chronic systolic (congestive) heart failure; J91.8 Pleural effusion in other conditions classified elsewhere; L03.115 Cellulitis of right lower limb; L03.116 Cellulitis of left lower limb; E11.52 Type 2 diabetes mellitus with diabetic peripheral angiopathy with gangrene; I96 Gangrene, not elsewhere classified; L97.412 Non-pressure chronic ulcer of right heel and midfoot with fat layer exposed; Z20.828 Contact with and (suspected) exposure to other viral communicable diseases; Z51.5 Encounter for palliative care; Z66 Do not resuscitate; E11.628 Type 2 diabetes mellitus with other skin complications; E11.319 Type 2 diabetes mellitus with unspecified diabetic retinopathy without macular edema; L97.529 Non-pressure chronic ulcer of other part of left foot with unspecified severity; L97.519 Non-pressure chronic ulcer of other part of right foot with unspecified severity; L89.892 Pressure ulcer of other site, stage 2; E11.22 Type 2 diabetes mellitus with diabetic chronic kidney disease; E11.42 Type 2 diabetes mellitus with diabetic polyneuropathy; E11.621 Type 2 diabetes mellitus with foot ulcer; G40.909 Epilepsy, unspecified, not intractable, without status epilepticus; M06.9 Rheumatoid arthritis, unspecified; Z79.4 Long term (current) use of insulin; Z99.2 Dependence on renal dialysis; Z91.15 Patient's noncompliance with renal dialysis; Z89.421 Acquired absence of other right toe(s); D63.8 Anemia in other chronic diseases classified elsewhere; T17.918A Gastric contents in respiratory tract, part unspecified causing other injury, initial encounter; D53.9 Nutritional anemia, unspecified; E78.5 Hyperlipidemia, unspecified; E86.0 Dehydration; F32.9 Major depressive disorder, single episode, unspecified; F41.9 Anxiety disorder, unspecified; H54.8 Legal blindness, as defined in USA; I08.1 Rheumatic disorders of both mitral and tricuspid valves; I25.10 Atherosclerotic heart disease of native coronary artery without angina pectoris; J45.909 Unspecified asthma, uncomplicated; K21.9 Gastro-esophageal reflux disease without esophagitis; M19.90 Unspecified osteoarthritis, unspecified site; G89.29 Other chronic pain; M54.9 Dorsalgia, unspecified; R53.81 Other malaise; R32 Unspecified urinary incontinence; R41.0 Disorientation, unspecified; R11.10 Vomiting, unspecified; S80.922A Unspecified superficial injury of left lower leg, initial encounter; S80.921A Unspecified superficial injury of right lower leg, initial encounter; E83.89 Other disorders of mineral metabolism; E87.70 Fluid overload, unspecified; H91.90 Unspecified hearing loss, unspecified ear; R26.9 Unspecified abnormalities of gait and mobility; Z79.01 Long term (current) use of anticoagulants; Z79.51 Long term (current) use of inhaled steroids; Z79.82 Long term (current) use of aspirin; Z79.899 Other long term (current) drug therapy; Z88.1 Allergy status to other antibiotic agents; Z88.2 Allergy status to sulfonamides; Z98.42 Cataract extraction status, left eye; Z98.41 Cataract extraction status, right eye; Z87.01 Personal history of pneumonia (recurrent); Z86.14 Personal history of Methicillin resistant Staphylococcus aureus infection; Z87.891 Personal history of nicotine dependence; Z86.19 Personal history of other infectious and parasitic diseases; Z98.890 Other specified postprocedural states; Z87.19 Personal history of other diseases of the digestive system; Z86.79 Personal history of other diseases of the circulatory system; Z83.3 Family history of diabetes mellitus; Z84.1 Family history of disorders of kidney and ureter; Z80.9 Family history of malignant neoplasm, unspecified
CPT/HCPCS: 36600; 71045; 71046; 76604; 80048; 80053; 80202; 82805; 82945; 83605; 83615; 84157; 85025; 85610; 85730; 87040; 87070; 87075; 87077; 87102; 87116; 87186; 87205; 87206; 87252; 87496; 87498; 87502; 87529; 87634; 87798; 88108; 88305; 89050; 90935; 93005; 93306; 94002; 94003; 94660; 96365; 99291